=== PATIENT | female | born 1955 | race Caucasian/White ===

== ENCOUNTER → 2020-08-07 09:50 | Outpatient (BNVA) | payer MEDICARE, SELFPAY | PROVIDERS: PCP Internal Medicine; Referring Provider Internal Medicine; Visit Provider Nurse Practitioner | DX: I95.1 Orthostatic hypotension (principal); R94.31 Abnormal electrocardiogram [ECG] [EKG]; Z91.81 History of falling; K21.9 Gastro-esophageal reflux disease without esophagitis; K59.04 Chronic idiopathic constipation; N81.6 Rectocele; K64.9 Unspecified hemorrhoids; B37.9 Candidiasis, unspecified | CPT/HCPCS: 93005; 99213; 99214; Q3014 ==

== ENCOUNTER → 2020-08-08 09:07 | Outpatient (BNVA) | payer MEDICARE, SELFPAY | PROVIDERS: PCP Internal Medicine; Referring Provider Internal Medicine; Visit Provider Advanced Practice Midwife | DX: Z76.89 Persons encountering health services in other specified circumstances (principal) ==

== ENCOUNTER 2020-08-15 11:26 | Outpatient (REF) | payer MEDICARE, SELFPAY ==
--- NOTE | 2020-08-15 11:31 | US_ITS ---
EXAMINATION: PELVIC ULTRASOUND CLINICAL INFORMATION: Pain COMPARISON: Previous pelvic ultrasound July [address] of the abdomen and pelvis October 2019 TECHNIQUE: Transabdominal and transvaginal pelvic ultrasound was performed. Transvaginal exam was performed for better visualization of the ovaries. FINDINGS: The uterus has been removed. The right ovary measures 2.9 x 1.5 x 0.9 cm. There is a 1.7 x 0.7 x 0.8 cm right adnexal or paraovarian simple cyst. This is new from 2018 exam. The left ovary is normal-appearing and measures 2.5 x 1.3 x 1 cm. There is no fluid in the pelvis. US/US transvaginal IMPRESSION: New 1.7 x 0.7 x 0.8 cm right adnexal or paraovarian simple cyst. Normal-appearing left ovary. Post hysterectomy.
--- NOTE | 2020-08-15 11:31 | US_ITS ---
EXAMINATION: PELVIC ULTRASOUND CLINICAL INFORMATION: Pain COMPARISON: Previous pelvic ultrasound July [address] of the abdomen and pelvis October 2019 TECHNIQUE: Transabdominal and transvaginal pelvic ultrasound was performed. Transvaginal exam was performed for better visualization of the ovaries. FINDINGS: The uterus has been removed. The right ovary measures 2.9 x 1.5 x 0.9 cm. There is a 1.7 x 0.7 x 0.8 cm right adnexal or paraovarian simple cyst. This is new from 2018 exam. The left ovary is normal-appearing and measures 2.5 x 1.3 x 1 cm. There is no fluid in the pelvis. US/US pelvic complete IMPRESSION: New 1.7 x 0.7 x 0.8 cm right adnexal or paraovarian simple cyst. Normal-appearing left ovary. Post hysterectomy.
== END 2020-08-15 11:27 | disposition home or self-care (01) ==
LOC: HO.US 11:26
PROVIDERS: Visit Provider Advanced Practice Midwife
DX: R10.2 Pelvic and perineal pain (principal)
CPT/HCPCS: 76830; 76856

== ENCOUNTER → 2020-08-29 10:17 | Outpatient (BNVA) | payer MEDICARE, SELFPAY | PROVIDERS: PCP Internal Medicine; Visit Provider Advanced Practice Midwife | DX: N83.291 Other ovarian cyst, right side (principal); Z71.2 Person consulting for explanation of examination or test findings | CPT/HCPCS: Q3014 ==

== ENCOUNTER 2020-08-31 10:32 | Outpatient (REF) | payer MEDICARE, SELFPAY ==
[2020-08-31 12:40] LABS: MANUAL DIFF FLAG NO
[2020-08-31 12:47] LABS: Basophils Percent Auto 0.6 % (0-2); Eosinophils Absolute Auto 0.1 X10*3/uL (0.0-0.4); Eosinophils Percent Auto 2.3 % (0-4); Hematocrit 38.8 % (37-47); Imm Gran Abs Auto 0.01 X10*3/uL (0.00-0.03); Imm Gran Pct Auto 0.2 % (0.0-0.4); Lymphocytes Absolute Auto 1.9 X10*3/uL (1.2-4.9); Lymphocytes Percent Auto 38.6 % (20-40); Mean Corpuscular HGB Conc 33.5 g/dl (31.0-35.0); Mean Corpuscular Hemoglobin 30.8 pg (27.0-33.0); Mean Corpuscular Volume 91.9 fL (80-98); Monocytes Absolute Auto 0.4 X10*3/uL (0.1-1.2); Monocytes Percent Auto 8.6 % (2-11); Neutrophils Absolute Auto 2.4 X10*3/uL (2.0-8.3); Neutrophils Percent Auto 49.7 % (45-73); Platelet Count 146 X10*3/uL (160-400); Red Blood Count 4.22 X10*6/uL (4.20-5.50); Red Cell Distribution Width 13.2 % (11.0-16.0); White Blood Count 4.9 X10*3/uL (4.8-10.8)
[2020-08-31 13:03] LABS: Estimated Average Glucose 128 mg/dL; Hemoglobin A1C 148.4961 umol/L; Hemoglobin A1c % 6.1 %
[2020-08-31 13:35] LABS: Alanine Aminotransferase 29 U/L (0-31); Albumin Level 4.2 g/dL (3.5-5.0); Alkaline Phosphatase 154 U/L (39-117); Anion Gap 10 (12-20); Aspartate Amino Transferase 38 U/L (5-31); Bilirubin Total 0.4 mg/dL (0.0-1.0); Blood Urea Nitrogen 13 mg/dL (9-16); Calcium 9.1 mg/dL (8.4-10.2); Carbon Dioxide 33 mmol/L (22-29); Chloride 103 mmol/L (96-108); Cholesterol 124 mg/dL; Estimated Glomerular Filt Rate > 60; Glucose Fasting 79 mg/dL (60-99); HDL Cholesterol 50 mg/dL; LDL Cholesterol Calculated 48 mg/dl; Sodium 142 mmol/L (135-145); Total Protein 7.3 g/dL (6.5-8.0); Triglycerides 134 mg/dL
[2020-08-31 13:41] LABS: Vitamin D 25-OH Total 52.3 ng/mL (>30)
[2020-08-31 13:43] LABS: TSH reflex Free T4 1.51 mIU/mL (0.32-4.0)
[2020-08-31 13:49] LABS: Glucose Urine UA 100 MG/DL (NEG); Leukocyte Esterase Urine NEG (NEG); Nitrite Urine NEG (NEG); PH 7.5 (5.0-8.0); Urine Blood NEG (NEG); Urine Ketones NEG (NEG); Urine Protein NEG (NEG-TRACE)
[2020-08-31 13:56] LABS: Appearance Urine HAZY; Color Urine YELLOW
[2020-08-31 14:05] LABS: Vitamin B12 412 pg/mL (200-900)
[2020-09-01 10:17] LABS: LDL Cholesterol Direct 45 mg/dL (<100)
== END 2020-08-31 10:33 | disposition home or self-care (01) ==
LOC: HO.LAB 10:32
PROVIDERS: Absent Provider Internal Medicine Endocrinology, Diabetes & Metabolism; PCP Internal Medicine; Visit Provider Internal Medicine
DX: E11.319 Type 2 diabetes mellitus with unspecified diabetic retinopathy without macular edema (principal); E11.42 Type 2 diabetes mellitus with diabetic polyneuropathy; E78.5 Hyperlipidemia, unspecified; I10 Essential (primary) hypertension; R94.5 Abnormal results of liver function studies; F03.90 Unspecified dementia, unspecified severity, without behavioral disturbance, psychotic disturbance, mood disturbance, and anxiety; E11.40 Type 2 diabetes mellitus with diabetic neuropathy, unspecified; K21.9 Gastro-esophageal reflux disease without esophagitis; N39.3 Stress incontinence (female) (male); I95.1 Orthostatic hypotension; E66.9 Obesity, unspecified
CPT/HCPCS: 36415; 80053; 80061; 81003; 82306; 82607; 82746; 83036; 83721; 84443; 85025

== ENCOUNTER → 2020-09-06 13:41 | Outpatient (BNVA) | payer MEDICARE, SELFPAY | PROVIDERS: PCP Internal Medicine; Referring Provider Internal Medicine; Visit Provider Internal Medicine Endocrinology, Diabetes & Metabolism | DX: E11.65 Type 2 diabetes mellitus with hyperglycemia (principal); E11.319 Type 2 diabetes mellitus with unspecified diabetic retinopathy without macular edema; E11.42 Type 2 diabetes mellitus with diabetic polyneuropathy; Z79.4 Long term (current) use of insulin; E78.5 Hyperlipidemia, unspecified; E55.9 Vitamin D deficiency, unspecified; E66.9 Obesity, unspecified; I10 Essential (primary) hypertension | CPT/HCPCS: Q3014 ==

== ENCOUNTER 2020-09-09 09:42 | Outpatient (REF) | payer MEDICARE, SELFPAY ==
--- NOTE | 2020-09-09 09:48 | MM_ITS ---
EXAMINATION: MM SCREENING DIGITAL BREAST TOMOSYNTHESIS, BILATERAL CLINICAL INFORMATION: Screening. Asymptomatic. The lifetime risk of breast cancer based on the Tyrer-Cuzick Model is 8%. COMPARISON: Mammography: 09/06/2019, 08/04/2018, 08/02/2017 TECHNIQUE: Digital breast tomosynthesis is performed in both the craniocaudal and mediolateral oblique views along with computer-aided detection (CAD). Synthesized 2D images are generated from the tomosynthesis. Additional bilateral MLO views are provided. FINDINGS: There are scattered areas of fibroglandular density (ACR BI-RADS breast composition Category b). There are no significant masses, abnormal calcifications, or other abnormalities. The axilla and skin contours are unremarkable. MM/MM tomosynthesis screening BI IMPRESSION: No mammographic evidence of malignancy. ASSESSMENT: BI-RADS 1: Negative RECOMMENDATION: Routine annual mammography screening. This patient's information was entered into a reminder system with a target due date for their next mammogram.
== END 2020-09-09 09:43 | disposition home or self-care (01) ==
LOC: HO.MAMMO 09:42
PROVIDERS: PCP Internal Medicine; Visit Provider Internal Medicine
DX: Z12.31 Encounter for screening mammogram for malignant neoplasm of breast (principal)
CPT/HCPCS: 77063; 77067

== ENCOUNTER 2020-09-27 12:47 | Outpatient (REF) | payer MEDICARE, SELFPAY ==
--- NOTE | 2020-09-27 12:52 | XR_ITS ---
EXAMINATION: XR HAND, RIGHT CLINICAL INFORMATION: Pain COMPARISON: Previous exam September 2014 TECHNIQUE: PA, lateral, and oblique views of the right hand. FINDINGS: Bone alignment is normal. No acute fracture or dislocation is seen. There is an old healed fracture of the distal phalanx of the thumb. There is arthritis at the first FPC joint and IP joints, greatest in the DIP joint of the second finger and IP joint of the thumb. Soft tissues are unremarkable. XR/XR hand RT 2V IMPRESSION: Degenerative arthritis.
== END 2020-09-27 12:48 | disposition home or self-care (01) ==
LOC: HO.XRAY 12:47
PROVIDERS: Visit Provider Internal Medicine
DX: M79.644 Pain in right finger(s) (principal)
CPT/HCPCS: 73120

== ENCOUNTER 2020-10-18 14:27 | Outpatient (REF) | payer MEDICARE, SELFPAY | END 2020-10-18 14:28 | disposition home or self-care (01) | LOC: HO.LAB 14:27 | PROVIDERS: Visit Provider Internal Medicine | DX: Z20.828 Contact with and (suspected) exposure to other viral communicable diseases (principal) | CPT/HCPCS: 36415; C9803; U0003 ==

== ENCOUNTER → 2020-12-05 11:01 | Outpatient (BNVA) | payer MEDICARE, SELFPAY | PROVIDERS: PCP Internal Medicine; Visit Provider Nurse Practitioner | CPT/HCPCS: Q3014 ==

== ENCOUNTER 2020-12-11 12:22 | Outpatient (REF) | payer MEDICARE, SELFPAY ==
[2020-12-11 14:51] LABS: MANUAL DIFF FLAG NO
[2020-12-11 15:03] LABS: Basophils Percent Auto 0.6 % (0-2); Eosinophils Absolute Auto 0.1 X10*3/uL (0.0-0.4); Eosinophils Percent Auto 2.8 % (0-4); Hematocrit 38.7 % (37-47); Hemoglobin 12.9 g/dl (12.0-16.0); Imm Gran Abs Auto 0.01 X10*3/uL (0.00-0.03); Imm Gran Pct Auto 0.2 % (0.0-0.4); Lymphocytes Absolute Auto 1.7 X10*3/uL (1.2-4.9); Lymphocytes Percent Auto 34.2 % (20-40); Mean Corpuscular HGB Conc 33.3 g/dl (31.0-35.0); Mean Corpuscular Hemoglobin 30.5 pg (27.0-33.0); Mean Corpuscular Volume 91.5 fL (80-98); Mean Platelet Volume 10.2 fL (9.4-12.3); Monocytes Absolute Auto 0.4 X10*3/uL (0.1-1.2); Monocytes Percent Auto 7.3 % (2-11); Neutrophils Absolute Auto 2.8 X10*3/uL (2.0-8.3); Neutrophils Percent Auto 54.9 % (45-73); Platelet Count 156 X10*3/uL (160-400); Red Blood Count 4.23 X10*6/uL (4.20-5.50); Red Cell Distribution Width 13.3 % (11.0-16.0); White Blood Count 5.1 X10*3/uL (4.8-10.8)
[2020-12-11 15:16] LABS: Glucose Urine UA NEG (NEG); Leukocyte Esterase Urine 2+ (NEG); Nitrite Urine NEG (NEG); UACC Culture Trigger YES; Urine Blood NEG (NEG); Urine Ketones NEG (NEG); Urine Protein NEG (NEG-TRACE)
[2020-12-11 15:19] LABS: Appearance Urine HAZY; Color Urine YELLOW
[2020-12-11 15:31] LABS: Alanine Aminotransferase 35 U/L (0-31); Albumin Level 4.1 g/dL (3.5-5.0); Alkaline Phosphatase 161 U/L (39-117); Anion Gap 11 (12-20); Aspartate Amino Transferase 55 U/L (5-31); Bilirubin Total 0.7 mg/dL (0.0-1.0); Blood Urea Nitrogen 15 mg/dL (9-16); Carbon Dioxide 32 mmol/L (22-29); Chloride 103 mmol/L (96-108); Cholesterol 124 mg/dL; Estimated Glomerular Filt Rate > 60; Glucose Fasting 116 mg/dL (60-99); HDL Cholesterol 51 mg/dL; LDL Cholesterol Calculated 49 mg/dl; Sodium 142 mmol/L (135-145); Total Protein 6.9 g/dL (6.5-8.0); Triglycerides 122 mg/dL
[2020-12-11 15:53] LABS: TSH reflex Free T4 1.32 uIU/mL (0.32-4.0); Vitamin D 25-OH Total 48.6 ng/mL (>30)
[2020-12-11 15:54] LABS: Bacteria Urine 1+ /LPF; RBC Urine 0-2 /HPF (0); UACC CULT YES; WBC Urine 30-49 /HPF (0-4)
[2020-12-11 15:55] LABS: Amorphous Sediment Urine 2+ /LPF
[2020-12-11 16:00] LABS: Folate 13.2 ng/mL (> or = 4.0); Vitamin B12 437 pg/mL (200-900)
== END 2020-12-11 12:23 | disposition home or self-care (01) ==
LOC: HO.LAB 12:22
PROVIDERS: Absent Provider Internal Medicine; PCP Internal Medicine; Visit Provider Internal Medicine Endocrinology, Diabetes & Metabolism
DX: E11.65 Type 2 diabetes mellitus with hyperglycemia (principal); E11.3399 Type 2 diabetes mellitus with moderate nonproliferative diabetic retinopathy without macular edema, unspecified eye; E11.42 Type 2 diabetes mellitus with diabetic polyneuropathy; E11.21 Type 2 diabetes mellitus with diabetic nephropathy; Z96.41 Presence of insulin pump (external) (internal); E78.5 Hyperlipidemia, unspecified; E55.9 Vitamin D deficiency, unspecified; E66.9 Obesity, unspecified; I10 Essential (primary) hypertension
CPT/HCPCS: 36415; 80053; 80061; 81001; 82306; 82607; 82746; 82947; 84443; 85025; 87086; 87088; 87186; 99212

== ENCOUNTER 2021-01-22 09:36 | Outpatient (REF) | payer MEDICARE, SELFPAY ==
--- NOTE | ~2021-01-22 | US_ITS ---
EXAMINATION: US THYROID CLINICAL INFORMATION: Localized swelling, mass and lump, neck. COMPARISON: None TECHNIQUE: Linear transducer grayscale and color Doppler examination with attention to the region of the thyroid. FINDINGS: SIZE: Measurements of the thyroid lobes and nodules are given in sagittal, anteroposterior and transverse dimensions respectively. Right Thyroid Lobe: 4.31 x 0.90 x 0.90 cm, volume 1.75 mL. Parenchyma: The gland echotexture is homogeneous. Thyroid vascularity is normal. Left Thyroid Lobe: 4.25 x 0.80 x 0.90 cm, volume 1.56 mL. Parenchyma: The gland echotexture is homogeneous. Thyroid vascularity is normal. Isthmus: 0.25 cm in maximum AP dimension. Estimated total number of nodules greater than or equal to 1 cm: 0. No focal thyroid nodule is seen. NODES: No lymphadenopathy is seen in the tissue surrounding the thyroid gland. US/US thyroid IMPRESSION: Small thyroid gland otherwise unremarkable exam.
== END 2021-01-22 09:37 | disposition home or self-care (01) ==
LOC: HO.US 09:36
PROVIDERS: Visit Provider Internal Medicine
DX: R22.1 Localized swelling, mass and lump, neck (principal)
CPT/HCPCS: 76536

== ENCOUNTER → 2021-01-25 15:30 | Outpatient (BNVA) | payer MEDICARE, SELFPAY | PROVIDERS: PCP Internal Medicine; Visit Provider Urology | DX: N32.81 Overactive bladder (principal) | CPT/HCPCS: 51798; 81002; 99212 ==

== ENCOUNTER 2021-02-07 14:22 | Outpatient (REF) | payer MEDICARE, SELFPAY | END 2021-02-07 14:23 | disposition home or self-care (01) | LOC: HO.LAB 14:22 | PROVIDERS: PCP Internal Medicine; Visit Provider Internal Medicine | DX: Z02.9 Encounter for administrative examinations, unspecified (principal) | CPT/HCPCS: 86900; 86901 ==

== ENCOUNTER 2021-02-19 08:52 | Day surgery (SDC) | payer MEDICARE, SELFPAY ==
[2021-02-07 09:39] VITALS: BMI 32.5
--- NOTE | 2021-02-15 14:31 | HO.ANESPROP2 ---
Documented by User: Jennifer Ervin 02/15/21 14:39 HPI - Anesthesia Eval Consult details Narrative: 66yo F for Cystoscopy Botox Injection Last cysto botox 01/2020 with MAC Insulin pump in situ PMFSH Active Problems Active Problems: All Active Problems (Updated 02/07/21 @ 09:37 by Katie Arrieta) Chronic idiopathic constipation (Acute) GERD (gastroesophageal reflux disease) (Acute) Rectocele (Acute) Hemorrhoids (Acute) Charmaine albicans infection (Acute) QT prolongation (Acute) Right sided abdominal pain (Acute) Simple ovarian cyst (Acute) Diabetic polyneuropathy associated with type 2 diabetes mellitus (Acute) Diabetes type 2, uncontrolled (Acute) Overactive bladder (Acute) Localized swelling, mass and lump, neck (Acute) Urinary tract infection with pyuria (Acute) Elevated LFTs (Acute) Elevated liver enzymes (Acute) Depression (Acute) Anxiety (Acute) Urinary incontinence in female (Acute) Dementia (Acute) Osteoarthritis (Acute) Lumbar spondylosis (Acute) Benign essential hypertension (Acute) Pure hypercholesterolemia (Acute) Type 2 diabetes mellitus with diabetic polyneuropathy (Acute) Pain of right thumb (Acute) Allergic rhinitis (Acute) Hypertension (Acute) Obesity (BMI 30-39.9) (Acute) Vitamin D deficiency (Acute) Dyslipidemia (Acute) Diabetic 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 type 2 diabetes mellitus (Acute) 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) Dizziness and giddiness (Acute) Orthostatic hypotension (Acute) Past Medical History Medical History (Updated 02/07/21 @ 09:37 by Katie Arrieta) Allergic rhinitis Anxiety Benign essential hypertension Blind left eye COVID-19 vaccine administered CVA (cerebral vascular accident) Dementia Depression Diabetic 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 type 2 diabetes mellitus Dizziness and giddiness Dyslipidemia Elevated LFTs Elevated liver enzymes Hypertension Localized swelling, mass and lump, neck 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 Lumbar spondylosis Obesity (BMI 30-39.9) Orthostatic hypotension Osteoarthritis Pain of right thumb Pure hypercholesterolemia Thyroid disease Type 2 diabetes mellitus with diabetic polyneuropathy Urinary incontinence in female Urinary tract infection with pyuria Vitamin D deficiency Family History Family History Father Diabetes Mother Heart problem Brother Diabetes Surgical History Surgical History (Updated 02/07/21 @ 09:01 by Katie Arrieta) History of carpal tunnel release History of esophagogastroduodenoscopy (EGD) History of pubovaginal sling Hx of cholecystectomy Hx of colonoscopy Hx of cystoscopy Hx of eye surgery Hx of hysterectomy Social History Social History Are you a primary acute care physical therapist to a significant other at home: No Do you presently have visiting nurse or other home services: Yes Alcohol intake: never Smoking Status: Never smoker Use of substances other than those prescribed or required for medical reasons: No Have you been hit, kicked, punched, or otherwise hurt by someone within the past year? If so, by whom?: No Advance Directives Information Provided: No Recently lost weight without trying: No Eating poorly because of decreased appetite: No Nutrition Risks: No Nutritional Risk Poor oral hygiene: No (upper & lower full denture) Gender identity: female Meds Allergies Allergy/AdvReac Type Severity Reaction Status Date / Time Penicillins Allergy Intermediate RASH/HIVES Verified 12/26/20 11:37 Home Medications Medication Instructions Recorded Confirmed Last Taken Type fludrocortisone 0.1 mg tablet 0.2 mg PO DAILY 08/07/20 02/07/21 Unknown History amitriptyline 10 mg tablet 20 mg PO BEDTIME 09/06/20 02/07/21 Unknown History blood sugar diagnostic #10 ea 09/06/20 12/11/20 Unknown History clonazepam 1 mg tablet 1 mg PO BEDTIME 09/06/20 02/07/21 Unknown History levothyroxine 125 mcg tablet 125 mcg PO QAM 09/06/20 02/07/21 Unknown History mirabegron 50 mg tablet,extended 100 mg PO DAILY 09/06/20 02/07/21 Unknown History release 24 hr dorzolamide 22.3 mg-timolol 6.8 1 drp OPHTHALMIC (EYE) BID 09/27/20 02/07/21 Unknown History mg/mL eye drops hydrocortisone 2.5 % topical cream [place] 09/27/20 12/26/20 Unknown History with perineal applicator lifitegrast 5 % eye drops in a 1 drp OPHTHALMIC (EYE) BID 09/27/20 12/26/20 Unknown History dropperette nystatin 100,000 unit/gram topical TOPICAL TID 09/27/20 12/26/20 Unknown History cream quetiapine 25 mg tablet 75 mg PO BEDTIME 09/27/20 02/07/21 Unknown History erenumab-aooe 70 mg/mL mg SUBCUT 12/05/20 12/26/20 Unknown History subcutaneous auto-injector hydroxyzine HCl 25 mg PO TID 02/07/21 02/07/21 Unknown History magnesium oxide 400 mg PO BEDTIME 02/07/21 02/07/21 Unknown History rosuvastatin 40 mg PO BEDTIME 02/07/21 02/07/21 Unknown History Exam Exam Date and Time: February 15, 2021 1431 Height,Weight and Vital Signs: Height 5 ft 1 in Weight 78.018 kg Narrative Narrative: EKG 07/2020 sinus rhythm at 83/Min normal NH and mildly prolonged QTc at 500ms. Echocardiogram 2017 shows LVEF 55-60%; mild diastolic dysfunction: otherwise unremarkable. Myocardial perfusion imaging study 2018-likely normal perfusion. 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 Lumbar spondylosis Obesity (BMI 30-39.9) Orthostatic hypotension Osteoarthritis Pain of right thumb Pure hypercholesterolemia Thyroid disease Type 2 diabetes mellitus with diabetic polyneuropathy Urinary incontinence in female Urinary tract infection with pyuria Vitamin D deficiency Family History Family History Father Diabetes Mother Heart problem Brother Diabetes Surgical History Surgical History (Updated 02/07/21 @ 09:01 by Katie Arrieta) History of carpal tunnel release History of esophagogastroduodenoscopy (EGD) History of pubovaginal sling Hx of cholecystectomy Hx of colonoscopy Hx of cystoscopy Hx of eye surgery Hx of hysterectomy Social History Social History Are you a primary acute care physical therapist to a significant other at home: No Do you presently have visiting nurse or other home services: Yes Alcohol intake: never Smoking Status: Never smoker Use of substances other than those prescribed or required for medical reasons: No Have you been hit, kicked, punched, or otherwise hurt by someone within the past year? If so, by whom?: No Advance Directives Information Provided: No Recently lost weight without trying: No Eating poorly because of decreased appetite: No Nutrition Risks: No Nutritional Risk Poor oral hygiene: No (upper & lower full denture) Gender identity: female Meds Allergies Allergy/AdvReac Type Severity Reaction Status Date / Time Penicillins Allergy Intermediate RASH/HIVES Verified 12/26/20 11:37 Home Medications Medication Instructions Recorded Confirmed Last Taken Type fludrocortisone 0.1 mg tablet 0.2 mg PO DAILY 08/07/20 02/07/21 Unknown History amitriptyline 10 mg tablet 20 mg PO BEDTIME 09/06/20 02/07/21 Unknown History blood sugar diagnostic #10 ea 09/06/20 12/11/20 Unknown History clonazepam 1 mg tablet 1 mg PO BEDTIME 09/06/20 02/07/21 Unknown History levothyroxine 125 mcg tablet 125 mcg PO QAM 09/06/20 02/07/21 Unknown History mirabegron 50 mg tablet,extended 100 mg PO DAILY 09/06/20 02/07/21 Unknown History release 24 hr dorzolamide 22.3 mg-timolol 6.8 1 drp OPHTHALMIC (EYE) BID 09/27/20 02/07/21 Unknown History mg/mL eye drops hydrocortisone 2.5 % topical cream NH 09/27/20 12/26/20 Unknown History with perineal applicator lifitegrast 5 % eye drops in a 1 drp OPHTHALMIC (EYE) BID 09/27/20 12/26/20 Unknown History dropperette nystatin 100,000 unit/gram topical TOPICAL TID 09/27/20 12/26/20 Unknown History cream quetiapine 25 mg tablet 75 mg PO BEDTIME 09/27/20 02/07/21 Unknown History erenumab-aooe 70 mg/mL mg SUBCUT 12/05/20 12/26/20 Unknown History subcutaneous auto-injector hydroxyzine HCl 25 mg PO TID 02/07/21 02/07/21 Unknown History magnesium oxide 400 mg PO BEDTIME 02/07/21 02/07/21 Unknown History rosuvastatin 40 mg PO BEDTIME 02/07/21 02/07/21 Unknown History Exam Airway Mallampati Class: II TM Dist: >3cm Neck ROM: Full Denture: Upper Partial: Upper Heart: RRr Lungs: CtA BL Assessment and Plan Assessment Anesthesia Assessment: Anesthesia Plan Discussed and Chart Reviewed Final Anesthetic Review NPO: Yes ASA Class: III Final Preanesthetic Review: No Changes in Pt Med Stat and Consent Obtained/Reviewed Patient Risk: Intermediate Procedure Risk: Intermediate Anesthetic Plan Anesthetic Plan: MAC: Disposition: Standard PACU
[2021-02-19 09:35] VITALS: BP 174/94; PULSE 94; RESP 16; TEMP 36.3; O2SAT 96
[2021-02-19 09:41] LABS: Glucose, Whole Blood 105 mg/dL (60-115)
[2021-02-19] MEDS: Lactated Ringers 1,000 ML 100 ML IVCONT (10:01)
[2021-02-19] MEDS: levoFLOXacin 500 MG TABLET PO (10:23)
--- NOTE | 2021-02-19 11:33 | MHC.SHP ---
Pre-Procedural Eval Section A The patient is an INPATIENT: No Changes since office visit: No Cold of Flu in the past 2 weeks, No New Medical Problems, No Changes in Medication and No Patient answered all questions The History & Physical has been completed within 30 days and I have reviewed it.: Yes Section B Chief Complaint: overactive bladder Allergies: Allergies Allergy/AdvReac Type Severity Reaction Status Date / Time Penicillins Allergy Intermediate RASH/HIVES Verified 12/26/20 11:37 Plan Diagnosis/Plan: Unchanged (Cysto bladder Botox) I have reviewed the history and physical and performed a pertinent physical examination on my patient. No changes have occurred unless specified.
[2021-02-19 12:01] VITALS: BP 158/92; PULSE 94; RESP 14; TEMP 36.3; O2SAT 96
--- NOTE | 2021-02-19 12:02 | P.OP_ITS ---
Operative Note Operative Note Date of Service: 02/19/21 Narrative: PreOperative Diagnosis: Overactive bladder Post Operative Diagnosis: Overactive bladder Procedure: Cystoscopy with Botox Surgeon: Dr Trip Goetz Anesthesia: Sedation Indications for procedure: 66-year-old female. Prior Botox action. Here for repeat administration. This was done prior to COVID so has significant symptomatology Procedure: After informed consent was verified the patient was brought to the operating room and placed in a supine position. anesthesia was administered per protocol. The patient was placed in modified dorsal lithotomy position and prepped and draped in a sterile fashion. Safety pause time-out was performed. On exam been given. A 22 Bulgarian cystoscope inserted in her bladder. No abnormalities noted. Twenty injections were performed on the back wall of the bladder. Four rows of 5 injections. Each injection was 1.5 cc of a 10 cc normal saline solution containing 100 units of Botox. Once the procedure was completed the bladder was emptied. Lidocaine jelly was placed to assist with postprocedure pain control. She was discharged with antibiotics for 5 days low-dose. Pathology: Drains:
[2021-02-19 12:16] VITALS: BP 158/88; PULSE 87; RESP 16; O2SAT 96
[2021-02-19 12:37] VITALS: BP 158/89; PULSE 87; RESP 16; O2SAT 96
[2021-02-19] MEDS: Phenazopyridine HCL 100 MG TABLET PO (12:47)
== END 2021-02-19 13:13 | disposition home or self-care (01) ==
PROVIDERS: PCP Internal Medicine; Visit Provider Urology
PROC: 3E0K8GC Introduction of Other Therapeutic Substance into Genitourinary Tract, Via Natural or Artificial Opening Endoscopic (ICD-10-PCS; CPT 52287; principal; 2021-02-19 10:30)
DX: N32.81 Overactive bladder (principal); I10 Essential (primary) hypertension; E11.42 Type 2 diabetes mellitus with diabetic polyneuropathy; E11.319 Type 2 diabetes mellitus with unspecified diabetic retinopathy without macular edema; F03.90 Unspecified dementia, unspecified severity, without behavioral disturbance, psychotic disturbance, mood disturbance, and anxiety; Z79.4 Long term (current) use of insulin; Z96.41 Presence of insulin pump (external) (internal); Z86.73 Personal history of transient ischemic attack (TIA), and cerebral infarction without residual deficits; E03.9 Hypothyroidism, unspecified; Z79.82 Long term (current) use of aspirin; Z79.899 Other long term (current) drug therapy; Z90.49 Acquired absence of other specified parts of digestive tract
CPT/HCPCS: 52287; 82947; J0585

== ENCOUNTER 2021-02-28 08:03 | Outpatient (REF) | payer MEDICARE, SELFPAY ==
--- NOTE | ~2021-02-28 | US_ITS ---
EXAMINATION: US COMPLETE ABDOMEN WITH LIVER ELASTOGRAPHY CLINICAL INFORMATION: Abnormal LFTs. COMPARISON: None. TECHNIQUE: Real-time imaging of the abdominal viscera. Noninvasive ultrasound liver fibrosis assessment is performed using Valerio ElastPQ point quantification shear wave elastography (pSWE) with a C5-2 MHz transducer. Multiple elastography samples are obtained. FINDINGS: PANCREAS: Normal. The visualized pancreatic head and body are normal in appearance. The remainder of the pancreas is obscured from visualization by the overlying bowel gas. ABDOMINAL AORTA: The proximal, middle, and distal aortic segments are normal in caliber. INFERIOR VENA CAVA: Visualized portions are normal. LIVER: The liver demonstrates normal size, contour and diffuse increased echogenicity. No focal lesion or intrahepatic biliary duct dilatation. The right lobe measures 15.6 cm in length. The left lobe measures 14.6 cm in length. Portal flow is hepatopedal. Shear wave liver elastography median stiffness is 3.46 m/s (reference: normal median stiffness is 1.3 m/s or less). IQR/median stiffness to assess sampling precision is 1.0 (reference: good quality data set is IQR/median stiffness of 0.15 or less). GALLBLADDER: Normal. The gallbladder is physiologically distended without evidence of stones, sludge, polyps, wall thickening or pericholecystic fluid. COMMON BILE DUCT: Normal in caliber measuring 0.7 cm in diameter. RIGHT KIDNEY: Normal. No hydronephrosis. No renal calculi or focal parenchymal lesions. The kidney measures 12.0 cm in maximum dimension. LEFT KIDNEY: Normal. No hydronephrosis. No renal calculi or focal parenchymal lesions. The kidney measures 12.2 cm in maximum dimension. SPLEEN: Normal. The spleen measures 12.8 cm in maximum dimension. FREE FLUID: None. US/US abdomen comp w elastography IMPRESSION: 1. Diffuse hepatic steatosis. No focal lesion seen. 2. The rest of the abdominal ultrasound is unremarkable. 3. Liver elastography: Median stiffness is 3.46 m/s. However, the sampling is suboptimal, hence, the elastography findings are nondiagnostic. REFERENCE: Society of Radiologists in Ultrasound Liver Stiffness Thresholds (2020): LIVER STIFFNESS THRESHOLDS: *Liver Stiffness equal or less than 1.3 m/s: High probability of being normal. *Liver Stiffness less than 1.7 m/s: In the absence of other known clinical signs, rules out compensated advanced chronic liver disease. *Liver Stiffness 1.7-2.1 m/s: Suggestive of compensated advanced chronic liver disease but need further test for confirmation. *Liver Stiffness over 2.1 m/s: Rules in compensated advanced chronic liver disease. *Liver Stiffness over 2.4 m/s: Suggestive of clinically significant portal hypertension. QUALITY OF DATA SET: *IQR/Median value equal or less than 0.15 implies a quality data set. *IQR/Median value over 0.15 implies a poor quality data set. SIGNIFICANT CHANGE FROM PRIOR EXAM: Significant change if liver stiffness measurement is 10% or greater from prior exam. OTHER CONSIDERATIONS: The stage of liver fibrosis may be overestimated in the setting of acute hepatitis, liver inflammation, elevated liver function tests, hepatic vascular congestion, obstructive cholestasis, non-fasting state, and infiltrative diseases such as amyloidosis and lymphoma. In some patients with NAFLD, the liver stiffness thresholds for compensated advanced chronic liver disease may be lower. In causes other than viral hepatitis and NAFLD, liver stiffness thresholds are not well established.
== END 2021-02-28 08:04 | disposition home or self-care (01) ==
LOC: HO.US 08:03
PROVIDERS: Visit Provider Internal Medicine
DX: R79.89 Other specified abnormal findings of blood chemistry (principal)
CPT/HCPCS: 76705; 76981

== ENCOUNTER → 2021-03-08 09:52 | Outpatient (BNVA) | payer MEDICARE, SELFPAY | DX: N32.81 Overactive bladder (principal); R32 Unspecified urinary incontinence | CPT/HCPCS: 51798; 99212 ==

== ENCOUNTER → 2021-03-14 12:39 | Outpatient (BNVA) | payer MEDICARE, SELFPAY | PROVIDERS: Visit Provider Internal Medicine Endocrinology, Diabetes & Metabolism | DX: E11.65 Type 2 diabetes mellitus with hyperglycemia (principal); E11.3393 Type 2 diabetes mellitus with moderate nonproliferative diabetic retinopathy without macular edema, bilateral; E11.42 Type 2 diabetes mellitus with diabetic polyneuropathy; E78.5 Hyperlipidemia, unspecified; E55.9 Vitamin D deficiency, unspecified; E66.9 Obesity, unspecified; I10 Essential (primary) hypertension; Z96.41 Presence of insulin pump (external) (internal); Z79.4 Long term (current) use of insulin | CPT/HCPCS: 82947; 99212 ==

== ENCOUNTER 2021-04-12 09:04 | Outpatient (REF) | payer MEDICARE, SELFPAY ==
[2021-04-12 10:10] LABS: MANUAL DIFF FLAG NO
[2021-04-12 10:19] LABS: Basophils Percent Auto 0.6 % (0-2); Eosinophils Absolute Auto 0.1 X10*3/uL (0.0-0.4); Eosinophils Percent Auto 1.8 % (0-4); Hematocrit 38.2 % (37-47); Hemoglobin 12.7 g/dl (12.0-16.0); Imm Gran Abs Auto 0.01 X10*3/uL (0.00-0.03); Imm Gran Pct Auto 0.2 % (0.0-0.4); Lymphocytes Absolute Auto 1.9 X10*3/uL (1.2-4.9); Mean Corpuscular HGB Conc 33.2 g/dl (31.0-35.0); Mean Corpuscular Hemoglobin 30.2 pg (27.0-33.0); Mean Platelet Volume 9.8 fL (9.4-12.3); Monocytes Absolute Auto 0.4 X10*3/uL (0.1-1.2); Monocytes Percent Auto 7.8 % (2-11); Neutrophils Absolute Auto 2.8 X10*3/uL (2.0-8.3); Neutrophils Percent Auto 53.6 % (45-73); Platelet Count 140 X10*3/uL (160-400); Red Cell Distribution Width 13.7 % (11.0-16.0); White Blood Count 5.1 X10*3/uL (4.8-10.8)
[2021-04-12 10:32] LABS: Alanine Aminotransferase 38 U/L (0-31); Albumin Level 4.1 g/dL (3.5-5.0); Alkaline Phosphatase 162 U/L (39-117); Anion Gap 10 (12-20); Aspartate Amino Transferase 52 U/L (5-31); Bilirubin Total 0.4 mg/dL (0.0-1.0); Blood Urea Nitrogen 12 mg/dL (9-16); Calcium 9.5 mg/dL (8.4-10.2); Carbon Dioxide 32 mmol/L (22-29); Chloride 106 mmol/L (96-108); Cholesterol 123 mg/dL; Estimated Glomerular Filt Rate > 60; Glucose Fasting 159 mg/dL (60-99); HDL Cholesterol 48 mg/dL; LDL Cholesterol Calculated 48 mg/dl; Potassium 3.9 mmol/L (3.3-5.1); Sodium 144 mmol/L (135-145); Triglycerides 139 mg/dL
[2021-04-12 10:55] LABS: TSH reflex Free T4 2.27 uIU/mL (0.32-4.0); Vitamin D 25-OH Total 36.6 ng/mL (>30)
[2021-04-12 11:02] LABS: Estimated Average Glucose 126 mg/dL
[2021-04-12 11:17] LABS: Glucose Urine UA 250 MG/DL (NEG); Leukocyte Esterase Urine NEG (NEG); Nitrite Urine NEG (NEG); Urine Blood NEG (NEG); Urine Ketones NEG (NEG); Urine Protein NEG (NEG-TRACE)
[2021-04-12 11:24] LABS: Folate 14.2 ng/mL (> or = 4.0); Vitamin B12 310 pg/mL (200-900)
[2021-04-12 11:31] LABS: Appearance Urine CLEAR; Color Urine YELLOW; Creatinine Urine 113.37 mg/dL; Microalbum/Creatinine Ratio Ur 27.3 ug/mg cr
== END 2021-04-12 09:05 | disposition home or self-care (01) ==
LOC: HO.LAB 09:04
PROVIDERS: PCP Internal Medicine; Visit Provider Internal Medicine
DX: N32.81 Overactive bladder (principal); R32 Unspecified urinary incontinence; E11.42 Type 2 diabetes mellitus with diabetic polyneuropathy; Z79.4 Long term (current) use of insulin
CPT/HCPCS: 36415; 51702; 51798; 80053; 80061; 81003; 82043; 82306; 82607; 82746; 83036; 84443; 85025; 99212

== ENCOUNTER → 2021-04-18 15:07 | Outpatient (BNVA) | payer MEDICARE, SELFPAY | PROVIDERS: PCP Internal Medicine | DX: R32 Unspecified urinary incontinence (principal); T83.038A Leakage of other urinary catheter, initial encounter; I10 Essential (primary) hypertension; F03.90 Unspecified dementia, unspecified severity, without behavioral disturbance, psychotic disturbance, mood disturbance, and anxiety; E11.319 Type 2 diabetes mellitus with unspecified diabetic retinopathy without macular edema; E11.65 Type 2 diabetes mellitus with hyperglycemia; E11.42 Type 2 diabetes mellitus with diabetic polyneuropathy; E78.00 Pure hypercholesterolemia, unspecified; Z88.0 Allergy status to penicillin | CPT/HCPCS: 99212 ==

== ENCOUNTER → 2021-05-16 11:08 | Outpatient (BNVA) | payer MEDICARE, SELFPAY | PROVIDERS: PCP Internal Medicine | DX: N32.81 Overactive bladder (principal) | CPT/HCPCS: 99212 ==

== ENCOUNTER 2021-05-29 10:21 | Outpatient (REF) | payer MEDICARE, SELFPAY ==
--- NOTE | 2021-05-29 14:55 | MHC.AU.ANR ---
Adult Audiological Evaluation Date of Visit: 05/29/21 Delivery Consultant Used: Daughter provided [place] interpretation Reason for Appointment: Audiological re-evaluation to monitor the status of Ms. Marquez's hearing loss. She was previously diagnosed with bilateral sensorineural hearing loss and binaural hearing aids were recommended. Her daughter notes that they went to an office in [place] for hearing aids since they take her insurance, but then the COVID-19 pandemic hit and they never heard from the office again. Changes to Ms. Marquez's medical history includes worsening dementia. Does patient feel they have a hearing loss?: Yes If Yes, Which Ear?: Both Ears Has hearing been tested previously?: Yes Previous Hearing Test Results: [facility] [place], 10/05/2019- Mild sloping to severe sensorineural hearing loss bilaterally. Ear History: Bothersome Tinnitus/Ringing/Noises in Ears: Left Ear Medical History: Medical History: Diabetes, Headache Medical History (Other): Dementia Allergies: Penicillin Medication List: See medical record Otoscopy: Right Ear: Unremarkable Left Ear: Unremarkable Tympanometry: Tympanometry performed due to: To assess integrity of the middle ear system Right Ear: Normal Middle Ear System (Type A) Left Ear: Normal Middle Ear System (Type A) Hearing Evaluation: Transducer(s) Used: Insert Earphones, Bone Conduction Method: Conventional Audiometry Stimuli Used: Pure Tones Right Ear: Description of Hearing: Mild sloping to severe sensorineural hearing loss from 250-8000 Hz. Left Ear: Description of Hearing: Mild sloping to severe sensorineural hearing loss from 250-8000 Hz. Speech Recognition Threshold (SRT): Method Used: Recorded Lists Stimuli Used: Spondee Words Right Ear: 35 dBHL Left Ear: 35 dBHL Word Discrimination: Method: Recorded Lists Word Lists Used: Lista Bisil?bica (Citizen [place]) Right Ear: 100% at 80 dBHL Left Ear: 100% at 80 dBHL Recommendations: Audiological re-evaluation in one year. Trial with amplification is recommended. Advised patient and her daughter that we do not take her insurance for hearing aids. Recommended that she contact her health insurance company to see if she has a hearing aid benefit and where she can use it. She was welcomed to return should she decide to pursue hearing aids on a private pay basis from our clinic. Diagnosis: Primary Diagnosis: H90.3 Bilateral Sensorineural Hearing Loss Services Performed: Services Performed: Comprehensive Audiological Evaluation (CPT 59914) Tympanometry (CPT 96678) Signature: Provider: Radha Traylor, [facility]
== END 2021-05-29 10:22 | disposition home or self-care (01) ==
LOC: HO.SH 10:21
PROVIDERS: Visit Provider Internal Medicine
DX: H90.3 Sensorineural hearing loss, bilateral (principal)
CPT/HCPCS: 92557; 92567

== ENCOUNTER → 2021-06-08 08:32 | Outpatient (BNVA) | payer MEDICARE, SELFPAY | DX: R35.0 Frequency of micturition (principal); N32.81 Overactive bladder; I10 Essential (primary) hypertension; E11.319 Type 2 diabetes mellitus with unspecified diabetic retinopathy without macular edema; E11.42 Type 2 diabetes mellitus with diabetic polyneuropathy; E78.00 Pure hypercholesterolemia, unspecified; E55.9 Vitamin D deficiency, unspecified; Z79.4 Long term (current) use of insulin; Z88.0 Allergy status to penicillin | CPT/HCPCS: 99212 ==

== ENCOUNTER → 2021-06-13 13:16 | Outpatient (BNVA) | payer MEDICARE, SELFPAY | PROVIDERS: PCP Internal Medicine; Visit Provider Nurse Practitioner Gerontology | DX: E11.65 Type 2 diabetes mellitus with hyperglycemia (principal); E11.3393 Type 2 diabetes mellitus with moderate nonproliferative diabetic retinopathy without macular edema, bilateral; E11.42 Type 2 diabetes mellitus with diabetic polyneuropathy; E78.5 Hyperlipidemia, unspecified; E55.9 Vitamin D deficiency, unspecified; E66.9 Obesity, unspecified; I10 Essential (primary) hypertension; Z79.4 Long term (current) use of insulin | CPT/HCPCS: 82947; 99212 ==

== ENCOUNTER → 2021-06-25 13:04 | Outpatient (BNVA) | payer MEDICARE, SELFPAY | PROVIDERS: PCP Internal Medicine; Visit Provider Nurse Practitioner Gerontology | DX: E11.65 Type 2 diabetes mellitus with hyperglycemia (principal); E11.42 Type 2 diabetes mellitus with diabetic polyneuropathy; E11.3393 Type 2 diabetes mellitus with moderate nonproliferative diabetic retinopathy without macular edema, bilateral; E78.5 Hyperlipidemia, unspecified; E55.9 Vitamin D deficiency, unspecified; I10 Essential (primary) hypertension; E66.9 Obesity, unspecified; E03.9 Hypothyroidism, unspecified; Z68.32 Body mass index [BMI] 32.0-32.9, adult; Z88.0 Allergy status to penicillin; Z79.4 Long term (current) use of insulin; Z46.81 Encounter for fitting and adjustment of insulin pump; Z79.899 Other long term (current) drug therapy | CPT/HCPCS: 82947; 99212 ==

== ENCOUNTER → 2021-07-09 08:45 | Outpatient (BNVA) | payer MEDICARE, SELFPAY | PROVIDERS: PCP Internal Medicine | DX: N32.81 Overactive bladder (principal) | CPT/HCPCS: Q3014 ==

== ENCOUNTER 2021-07-12 12:24 | Outpatient (REF) | payer MEDICARE, SELFPAY ==
--- NOTE | ~2021-07-12 | XR_ITS ---
EXAMINATION: XR ANKLE, LEFT CLINICAL INFORMATION: Ankle pain. COMPARISON: None. TECHNIQUE: AP, lateral, and mortise views of the left ankle. FINDINGS: No acute fracture or dislocation. Ankle mortise is maintained. Tiny tibiotalar marginal osteophytes. No osseous erosion. Plantar and dorsal calcaneal enthesophytes. Medial subcutaneous edema. XR/XR ankle LT min 3V IMPRESSION: Medial subcutaneous edema without acute fracture or dislocation. Mild tibiotalar osteoarthritis. Plantar and dorsal calcaneal spurs.
== END 2021-07-12 12:25 | disposition home or self-care (01) ==
LOC: HO.HOSX 12:24
PROVIDERS: Visit Provider Physician Assistant
DX: M25.572 Pain in left ankle and joints of left foot (principal); G89.29 Other chronic pain
CPT/HCPCS: 73610; 99212

== ENCOUNTER → 2021-07-13 11:15 | Outpatient (BNVA) | payer MEDICARE, SELFPAY | PROVIDERS: PCP Internal Medicine; Referring Provider Internal Medicine; Visit Provider Nurse Practitioner | DX: K59.04 Chronic idiopathic constipation (principal); K21.9 Gastro-esophageal reflux disease without esophagitis; K64.9 Unspecified hemorrhoids; B37.9 Candidiasis, unspecified; N81.6 Rectocele | CPT/HCPCS: 99212 ==

== ENCOUNTER → 2021-07-17 10:30 | Outpatient (REF) | payer MEDICARE, SELFPAY ==
--- NOTE | 2021-07-17 10:33 | CA_ITS ---
Transthoracic Echocardiogram Patient (Last, First, Middle): Debo Marquez, Gender: Female Date of : 1955 Age: 66 Procedure Date: 07/17/2021 Procedure Type: Transthoracic Echocardiogram Location: OP Height: 162.56 cm Weight: 76.66 kg BSA: 1.82 m2 Heart Rate: bpm BP: 122 / 60 mmHg Semiconductor Equipment Technician: Referring MD: Sanjay Parsons MD Symptoms: I95.1 - Orthostatic hypotension Study Quality: Fair ECG Rhythm: Sinus Conclusions: - The left ventricular systolic function is normal. The calculated ejection fraction is 66% by biplane method. - There is mild calcification of the aortic valve. - No obvious valvular pathology seen on this study. Findings Left Ventricle Normal left ventricular cavity size. The left ventricular systolic function is normal. The calculated ejection fraction is 66% by biplane method. There is no evidence of regional wall motion abnormalities. E/E prime ratio is between 8 and 15 consistent with indeterminate filling pressures. Evidence suggests grade I (mild) diastolic dysfunction. There is mild septal and mild basal asymmetric hypertrophy. Right Ventricle Normal right ventricular cavity size and systolic function. Atria Both atria are normal in size. Aortic Valve There is mild calcification of the aortic valve. There is no aortic valve stenosis. There is no aortic valve regurgitation. Mitral Valve The mitral valve appears normal. There is trace mitral valve regurgitation. There is no mitral valve stenosis. Pulmonic Valve The pulmonic valve was not well visualized. Tricuspid Valve Normal tricuspid valve structure. There is trace tricuspid valve regurgitation. The pulmonary artery systolic pressure is normal. Great Vessels The aortic annulus is normal in size. Venous The inferior vena cava is normal in size and collapses greater than 50% with inspiration. Pericardium/Pleural Prominent epicardial adipose tissue noted. There is no evidence of pericardial effusion. Prior Study Comparison No significant change compared to prior study dated: 09/21/2018. Recommendations, Care & Conclusions No obvious valvular pathology seen on this study. Measurements 2D Linear Measurements IVSd: 1.48 0.6-0.9/0.6-1.0 cm LVIDd: 4.04 3.9-5.3/4.2-5.9 cm LVIDd Index: 2.22 2.4-3.2/2.2-3.1 cm/m2 LVIDs: 2.57 2.0-3.6 cm LVPWd: 1.35 0.7-1.1 cm LA Diam: 2.60 2.7-3.8/3.0-4.0 cm LAIDs Index: 1.43 1.5-2.3 cm/m2 LV Mass: 268.64 67-162/88-224 g LV Mass Index: 147.60 43-95/49-115 g/m2 LVOT Diam: 2.20 3.0+(-)1.3 cm 2D Systolic Function EF 4C: 74.00 >55% EF 2C: 54.60 >55% EF BiP: 66.40 >55% Mitral Valve MV Pk E: 0.53 MV PK A: 1.00 MV Decel Time: 137.00 E/A: 0.50 E'Lateral: 4.35 E'Medial: 4.03 E/E' Med: 13.20 E/E' Lat: 12.20 PHT: 40.00 MVA PHT: 5.50 Decel Butts: 3.87 Aortic Valve AoV Pk Jose Luis: 1.54 AoV Mn Jose Luis: 1.10 AoV VTI: 0.33 AoV Pk Grad: 9.00 Aov Mn Grad: 5.00 KUSH Cont.VTI: 2.23 LVOT LVOT Pk Jose Luis: 0.91 LVOT Mn Jose Luis: 0.63 LVOT VTI: 0.19 LVOT Pk Grad: 3.00 LVOT Mn Grad: 2.00 LVOT Diam: 2.20 LVOT Area: 3.80 Diastolic Function MV Pk E: 0.53 MV Pk A: 1.00 E/A: 0.50 E'Medial: 4.03 E/E' Med: 13.20 E' Laterial: 4.35 E/E' Lat: 12.20 Right Ventricle TVS' Jose Luis: 10.00 Tricuspid Valve TR Pk Jose Luis: 1.84 TR Pk Grad: 14.00 Pulmonary Valve PV Pk Jose Luis: 0.83 Peak PV Grad: 3.00 Updated in Other Vendor System with Status of Final Sanjay Parsons MD electronically signed on 07/17/2021 3:00:26 PM with status of Final
== END ==
LOC: HO.CARD 10:30
PROVIDERS: PCP Internal Medicine; Visit Provider Internal Medicine
DX: I95.1 Orthostatic hypotension (principal)
CPT/HCPCS: 93306

== ENCOUNTER → 2021-08-08 13:25 | Outpatient (BNVA) | payer MEDICARE, SELFPAY | PROVIDERS: PCP Internal Medicine; Referring Provider Internal Medicine; Visit Provider Internal Medicine | DX: I95.1 Orthostatic hypotension (principal); R42 Dizziness and giddiness; R94.31 Abnormal electrocardiogram [ECG] [EKG]; W19.XXXD Unspecified fall, subsequent encounter | CPT/HCPCS: 99212 ==

== ENCOUNTER → 2021-08-23 13:43 | Outpatient (BNVA) | payer MEDICARE, SELFPAY | PROVIDERS: PCP Internal Medicine; Visit Provider Physician Assistant | DX: M25.572 Pain in left ankle and joints of left foot (principal); G89.29 Other chronic pain | CPT/HCPCS: 99212 ==

== ENCOUNTER → 2021-10-22 12:35 | Outpatient (BNVA) | payer MEDICARE, SELFPAY | PROVIDERS: PCP Internal Medicine; Visit Provider Nurse Practitioner Gerontology | DX: E11.65 Type 2 diabetes mellitus with hyperglycemia (principal); E11.3393 Type 2 diabetes mellitus with moderate nonproliferative diabetic retinopathy without macular edema, bilateral; E11.42 Type 2 diabetes mellitus with diabetic polyneuropathy; E78.5 Hyperlipidemia, unspecified; E55.9 Vitamin D deficiency, unspecified; E66.9 Obesity, unspecified; I10 Essential (primary) hypertension; Z68.30 Body mass index [BMI] 30.0-30.9, adult; Z79.4 Long term (current) use of insulin | CPT/HCPCS: 82947; 83036; 99212 ==

== ENCOUNTER → 2021-10-23 13:41 | Outpatient (BNVA) | payer MEDICARE, SELFPAY | PROVIDERS: PCP Internal Medicine; Visit Provider Registered Nurse Diabetes Educator | DX: E11.42 Type 2 diabetes mellitus with diabetic polyneuropathy (principal); Z79.4 Long term (current) use of insulin; Z96.41 Presence of insulin pump (external) (internal) | CPT/HCPCS: 99211 ==

== ENCOUNTER 2021-11-02 09:07 | Outpatient (REF) | payer MEDICARE, SELFPAY | END 2021-11-02 09:08 | disposition home or self-care (01) | LOC: HO.LAB 09:07 | PROVIDERS: PCP Internal Medicine; Visit Provider Internal Medicine | DX: Z13.89 Encounter for screening for other disorder (principal) ==

== ENCOUNTER 2021-11-05 12:04 | Outpatient (REF) | payer MEDICARE, SELFPAY ==
--- NOTE | ~2021-11-05 | MM_ITS ---
EXAMINATION: MM SCREENING DIGITAL BREAST TOMOSYNTHESIS, BILATERAL CLINICAL INFORMATION: Screening. Asymptomatic. The lifetime risk of breast cancer based on the Tyrer-Cuzick Model is 3%. COMPARISON: Mammography: 09/09/2020, 09/06/2019, 08/04/2018 TECHNIQUE: Digital breast tomosynthesis is performed in both the craniocaudal and mediolateral oblique views along with computer-aided detection (CAD). Synthesized 2D images are generated from the tomosynthesis. Additional left CC and left MLO views are provided. FINDINGS: There are scattered areas of fibroglandular density (ACR BI-RADS breast composition Category b). There are no significant masses, abnormal calcifications, or other abnormalities. Parenchymal pattern is similar to prior studies. There is no developing density or architectural abnormality. The axilla and skin contours are unremarkable. No significant changes. MM/MM tomosynthesis screening BI IMPRESSION: No mammographic evidence of malignancy. ASSESSMENT: BI-RADS 1: Negative RECOMMENDATION: Routine annual mammography screening. This patient's information was entered into a reminder system with a target due date for their next mammogram.
== END 2021-11-05 12:05 | disposition home or self-care (01) ==
LOC: HO.MAMMO 12:04
PROVIDERS: Visit Provider Internal Medicine
DX: Z12.31 Encounter for screening mammogram for malignant neoplasm of breast (principal)
CPT/HCPCS: 77063; 77067

== ENCOUNTER → 2021-11-06 12:14 | Outpatient (BNVA) | payer MEDICARE, SELFPAY | PROVIDERS: PCP Internal Medicine; Visit Provider Registered Nurse Diabetes Educator | DX: E11.42 Type 2 diabetes mellitus with diabetic polyneuropathy (principal) | CPT/HCPCS: 99211 ==

== ENCOUNTER → 2021-11-08 12:17 | Outpatient (BNVA) | payer MEDICARE, SELFPAY | PROVIDERS: PCP Internal Medicine; Referring Provider Internal Medicine; Visit Provider Internal Medicine | DX: I95.1 Orthostatic hypotension (principal); I35.9 Nonrheumatic aortic valve disorder, unspecified; R94.31 Abnormal electrocardiogram [ECG] [EKG]; W19.XXXD Unspecified fall, subsequent encounter | CPT/HCPCS: 99212 ==

== ENCOUNTER → 2021-12-05 12:30 | Outpatient (BNVA) | payer MEDICARE, SELFPAY | PROVIDERS: PCP Internal Medicine; Visit Provider Registered Nurse Diabetes Educator | DX: E11.65 Type 2 diabetes mellitus with hyperglycemia (principal) | CPT/HCPCS: 99211 ==

== ENCOUNTER → 2021-12-19 11:25 | Outpatient (BNVA) | payer MEDICARE, SELFPAY | PROVIDERS: PCP Internal Medicine; Visit Provider Registered Nurse Diabetes Educator | DX: E11.65 Type 2 diabetes mellitus with hyperglycemia (principal) | CPT/HCPCS: 99211 ==

== ENCOUNTER 2021-12-27 09:13 | Outpatient (REF) | payer MEDICARE, SELFPAY ==
[2021-12-27 09:43] LABS: MANUAL DIFF FLAG NO
[2021-12-27 10:10] LABS: Basophils Percent Auto 0.5 % (0-2); Eosinophils Absolute Auto 0.1 X10*3/uL (0.0-0.4); Eosinophils Percent Auto 2.4 % (0-4); Hematocrit 37.2 % (37.0-47.0); Hemoglobin 12.1 g/dl (12.0-16.0); Imm Gran Abs Auto 0.01 X10*3/uL (0.00-0.03); Imm Gran Pct Auto 0.2 % (0.0-0.4); Lymphocytes Absolute Auto 1.8 X10*3/uL (1.2-4.9); Lymphocytes Percent Auto 43.2 % (20-40); Mean Corpuscular HGB Conc 32.5 g/dl (31.0-35.0); Mean Corpuscular Hemoglobin 30.3 pg (27.0-33.0); Mean Corpuscular Volume 93.2 fL (80.0-98.0); Mean Platelet Volume 9.9 fL (9.4-12.3); Monocytes Absolute Auto 0.3 X10*3/uL (0.1-1.2); Monocytes Percent Auto 6.7 % (2-11); Platelet Count 124 X10*3/uL (160-400); Red Blood Count 3.99 X10*6/uL (4.20-5.50); Red Cell Distribution Width 12.9 % (11.0-16.0); White Blood Count 4.2 X10*3/uL (4.8-10.8)
[2021-12-27 10:38] LABS: Estimated Average Glucose 131 mg/dL; Hemoglobin A1c % 6.2 %
[2021-12-27 10:42] LABS: Creatinine Urine 96.46 mg/dL; Microalbum/Creatinine Ratio Ur 22.8 ug/mg cr
[2021-12-27 11:02] LABS: Alanine Aminotransferase 31 U/L (0-31); Albumin Level 3.9 g/dL (3.5-5.0); Alkaline Phosphatase 121 U/L (39-117); Anion Gap 12 (12-20); Aspartate Amino Transferase 37 U/L (5-31); Bilirubin Total 0.3 mg/dL (0.0-1.0); Blood Urea Nitrogen 27 mg/dL (9-16); Calcium 9.6 mg/dL (8.4-10.2); Carbon Dioxide 28 mmol/L (22-29); Chloride 107 mmol/L (96-108); Cholesterol 121 mg/dL; Estimated Glomerular Filt Rate > 60; Glucose Fasting 131 mg/dL (60-99); HDL Cholesterol 47 mg/dL; LDL Cholesterol Calculated 54 mg/dl; Potassium 4.8 mmol/L (3.3-5.1); Sodium 142 mmol/L (135-145); Total Protein 6.9 g/dL (6.5-8.0); Triglycerides 103 mg/dL
[2021-12-27 11:06] LABS: Appearance Urine CLEAR; Color Urine YELLOW; Glucose Urine UA NEG (NEG); Leukocyte Esterase Urine NEG (NEG); Nitrite Urine NEG (NEG); Urine Blood NEG (NEG); Urine Ketones NEG (NEG); Urine Protein NEG (NEG-TRACE)
[2021-12-27 11:07] LABS: Free T4 (Free Thyroxine) 1.01 ng/dL (0.71-1.85); Thyroid Stimulating Hormone 1.26 uIU/mL (0.32-4.0); Vitamin D 25-OH Total 37.1 ng/mL (>30)
== END 2021-12-27 09:14 | disposition home or self-care (01) ==
LOC: HO.LAB 09:13
PROVIDERS: PCP Internal Medicine; Visit Provider Internal Medicine
DX: I10 Essential (primary) hypertension (principal); E55.9 Vitamin D deficiency, unspecified; E03.9 Hypothyroidism, unspecified; E11.9 Type 2 diabetes mellitus without 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s; E78.00 Pure hypercholesterolemia, unspecified
CPT/HCPCS: 36415; 80053; 80061; 81003; 82043; 82306; 83036; 84439; 84443; 85025

== ENCOUNTER → 2022-01-04 12:52 | Outpatient (BNVA) | payer MEDICARE, SELFPAY | PROVIDERS: PCP Internal Medicine; Visit Provider Advanced Practice Midwife | DX: Z13.89 Encounter for screening for other disorder (principal) ==

== ENCOUNTER → 2022-01-07 08:18 | Outpatient (BNVA) | payer MEDICARE, SELFPAY | PROVIDERS: PCP Internal Medicine | DX: N39.0 Urinary tract infection, site not specified (principal) | CPT/HCPCS: Q3014 ==

== ENCOUNTER 2022-01-07 11:29 | Outpatient (REF) | payer MEDICARE, SELFPAY | END 2022-01-07 11:30 | disposition home or self-care (01) | LOC: HO.WFDLNP 11:29 | DX: N39.0 Urinary tract infection, site not specified (principal) | CPT/HCPCS: 87086 ==

== ENCOUNTER → 2022-01-11 11:12 | Outpatient (BNVA) | payer MEDICARE, SELFPAY | PROVIDERS: PCP Internal Medicine; Referring Provider Internal Medicine; Visit Provider Nurse Practitioner | DX: K59.04 Chronic idiopathic constipation (principal); K21.9 Gastro-esophageal reflux disease without esophagitis; N81.6 Rectocele; K30 Functional dyspepsia; Z79.899 Other long term (current) drug therapy | CPT/HCPCS: 99212 ==

== ENCOUNTER → 2022-01-17 14:35 | Outpatient (BNVA) | payer MEDICARE, SELFPAY | PROVIDERS: PCP Internal Medicine; Visit Provider Registered Nurse Diabetes Educator | DX: E11.65 Type 2 diabetes mellitus with hyperglycemia (principal); Z46.81 Encounter for fitting and adjustment of insulin pump | CPT/HCPCS: 99211 ==

== ENCOUNTER → 2022-01-21 09:16 | Outpatient (BNVA) | payer MEDICARE, SELFPAY | PROVIDERS: PCP Internal Medicine; Visit Provider Anesthesiology | DX: E11.40 Type 2 diabetes mellitus with diabetic neuropathy, unspecified (principal); M48.12 Ankylosing hyperostosis [Forestier], cervical region; G89.4 Chronic pain syndrome; F02.81 Dementia in other diseases classified elsewhere, unspecified severity, with behavioral disturbance | CPT/HCPCS: 99202 ==

== ENCOUNTER → 2022-02-05 12:54 | Outpatient (BNVA) | payer MEDICARE, SELFPAY | PROVIDERS: PCP Internal Medicine; Visit Provider Nurse Practitioner Gerontology | DX: E11.65 Type 2 diabetes mellitus with hyperglycemia (principal); E11.3393 Type 2 diabetes mellitus with moderate nonproliferative diabetic retinopathy without macular edema, bilateral; E11.42 Type 2 diabetes mellitus with diabetic polyneuropathy; E78.5 Hyperlipidemia, unspecified; E55.9 Vitamin D deficiency, unspecified; E66.9 Obesity, unspecified; E04.9 Nontoxic goiter, unspecified; I10 Essential (primary) hypertension; Z79.4 Long term (current) use of insulin | CPT/HCPCS: 82947; 99212 ==

== ENCOUNTER → 2022-02-15 15:56 | Outpatient (BNVA) | payer MEDICARE, SELFPAY | PROVIDERS: PCP Internal Medicine; Referring Provider Internal Medicine; Visit Provider Nurse Practitioner | DX: K59.04 Chronic idiopathic constipation (principal); K21.9 Gastro-esophageal reflux disease without esophagitis; K30 Functional dyspepsia; N81.6 Rectocele | CPT/HCPCS: 99212 ==

== ENCOUNTER → 2022-03-15 12:27 | Outpatient (BNVA) | payer MEDICARE, SELFPAY | PROVIDERS: PCP Internal Medicine; Visit Provider Registered Nurse Diabetes Educator | DX: E11.42 Type 2 diabetes mellitus with diabetic polyneuropathy (principal); Z79.4 Long term (current) use of insulin; Z46.81 Encounter for fitting and adjustment of insulin pump; K30 Functional dyspepsia; K59.04 Chronic idiopathic constipation; K21.9 Gastro-esophageal reflux disease without esophagitis; N81.6 Rectocele | CPT/HCPCS: 99211; 99212 ==

== ENCOUNTER → 2022-03-21 11:31 | Outpatient (BNVA) | payer MEDICARE, SELFPAY | PROVIDERS: PCP Internal Medicine; Visit Provider Registered Nurse Diabetes Educator | DX: Z46.81 Encounter for fitting and adjustment of insulin pump (principal); E11.42 Type 2 diabetes mellitus with diabetic polyneuropathy | CPT/HCPCS: 99211 ==

== ENCOUNTER 2022-03-27 09:58 | Outpatient (REF) | payer MEDICARE, SELFPAY ==
--- NOTE | ~2022-03-27 | XR_ITS ---
EXAMINATION: XR ANKLE, LEFT CLINICAL INFORMATION: Sprain left ankle. COMPARISON: Left ankle 07/12/2021. TECHNIQUE: AP, lateral, and mortise views of the left ankle. FINDINGS: There is bimalleolar soft tissue swelling. No visible acute fracture or dislocation seen. The ankle mortise and subtalar joints are normal. There is a small calcaneal heel and retrocalcaneal enthesophytes. No lytic or sclerotic process seen. XR/XR ankle LT min 3V IMPRESSION: No acute fracture or dislocation. Bimalleolar soft tissue swelling likely ligamentous injury. Small calcaneal heel and retrocalcaneal enthesophytes.
== END 2022-03-27 09:59 | disposition home or self-care (01) ==
LOC: HO.XRAY 09:58
PROVIDERS: PCP Internal Medicine; Visit Provider Anesthesiology
DX: M48.12 Ankylosing hyperostosis [Forestier], cervical region (principal); G89.4 Chronic pain syndrome; S93.402A Sprain of unspecified ligament of left ankle, initial encounter; S82.892A Other fracture of left lower leg, initial encounter for closed fracture; X58.XXXA Exposure to other specified factors, initial encounter; Y93.9 Activity, unspecified; Y92.9 Unspecified place or not applicable; Y99.8 Other external cause status; E11.40 Type 2 diabetes mellitus with diabetic neuropathy, unspecified; E11.319 Type 2 diabetes mellitus with unspecified diabetic retinopathy without macular edema; I10 Essential (primary) hypertension; E78.00 Pure hypercholesterolemia, unspecified; E03.9 Hypothyroidism, unspecified; F02.81 Dementia in other diseases classified elsewhere, unspecified severity, with behavioral disturbance; F32.A Depression, unspecified
CPT/HCPCS: 73610; 99212

== ENCOUNTER 2022-04-01 09:37 | Outpatient (REF) | payer OTHER, SELFPAY ==
[2022-04-01 09:49] LABS: MANUAL DIFF FLAG NO
[2022-04-01 10:43] LABS: Basophils Percent Auto 0.7 % (0-2); Eosinophils Absolute Auto 0.1 X10*3/uL (0.0-0.4); Eosinophils Percent Auto 2.8 % (0-4); Estimated Average Glucose 166 mg/dL; Hemoglobin 12.9 g/dl (12.0-16.0); Hemoglobin A1c % 7.4 %; Imm Gran Abs Auto 0.01 X10*3/uL (0.00-0.03); Imm Gran Pct Auto 0.2 % (0.0-0.4); Lymphocytes Absolute Auto 1.9 X10*3/uL (1.2-4.9); Lymphocytes Percent Auto 40.2 % (20-40); Mean Corpuscular HGB Conc 33.1 g/dl (31.0-35.0); Mean Corpuscular Hemoglobin 30.5 pg (27.0-33.0); Mean Corpuscular Volume 92.2 fL (80.0-98.0); Mean Platelet Volume 9.7 fL (9.4-12.3); Monocytes Absolute Auto 0.3 X10*3/uL (0.1-1.2); Monocytes Percent Auto 6.5 % (2-11); Neutrophils Absolute Auto 2.3 x10*3/uL (2.0-8.3); Neutrophils Percent Auto 49.6 % (45-73); Platelet Count 135 X10*3/uL (160-400); Red Blood Count 4.23 X10*6/uL (4.20-5.50); Red Cell Distribution Width 13.3 % (11.0-16.0); White Blood Count 4.6 X10*3/uL (4.8-10.8)
[2022-04-01 11:06] LABS: Appearance Urine CLEAR; Color Urine YELLOW; Glucose Urine UA NEG (NEG); Leukocyte Esterase Urine NEG (NEG); Nitrite Urine NEG (NEG); PH 5.5 (5.0-8.0); Specific Gravity - Urine >= 1.030 (1.005-1.025); Urine Blood NEG (NEG); Urine Ketones NEG (NEG); Urine Protein NEG (NEG-TRACE)
[2022-04-01 11:20] LABS: Free T4 (Free Thyroxine) 1.08 ng/dL (0.71-1.85); Thyroid Stimulating Hormone 1.54 uIU/mL (0.32-4.0); Vitamin D 25-OH Total 28.1 ng/mL (>30)
[2022-04-01 11:26] LABS: Alanine Aminotransferase 30 U/L (0-31); Albumin Level 4.1 g/dL (3.5-5.0); Alkaline Phosphatase 132 U/L (39-117); Anion Gap 10 (12-20); Aspartate Amino Transferase 37 U/L (5-31); Bilirubin Total 0.5 mg/dL (0.0-1.0); Blood Urea Nitrogen 24 mg/dL (9-16); Calcium 9.4 mg/dL (8.4-10.2); Carbon Dioxide 28 mmol/L (22-29); Chloride 105 mmol/L (96-108); Cholesterol 120 mg/dL; Estimated Glomerular Filt Rate > 60; Glucose Fasting 147 mg/dL (60-99); HDL Cholesterol 45 mg/dL; LDL Cholesterol Calculated 47 mg/dl; Potassium 4.3 mmol/L (3.3-5.1); Sodium 139 mmol/L (135-145); Total Protein 7.3 g/dL (6.5-8.0); Triglycerides 142 mg/dL
[2022-04-01 11:48] LABS: Creatinine Urine 140.79 mg/dL; Microalbum/Creatinine Ratio Ur 20.5 ug/mg cr
== END 2022-04-01 09:38 | disposition home or self-care (01) ==
LOC: HO.LAB 09:37
PROVIDERS: PCP Internal Medicine; Visit Provider Internal Medicine
DX: E03.9 Hypothyroidism, unspecified (principal); E78.00 Pure hypercholesterolemia, unspecified; E55.9 Vitamin D deficiency, unspecified; E11.9 Type 2 diabetes mellitus without 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s; I10 Essential (primary) hypertension
CPT/HCPCS: 36415; 80053; 80061; 81003; 82043; 82306; 83036; 84439; 84443; 85025

== ENCOUNTER → 2022-04-03 12:33 | Outpatient (BNVA) | payer OTHER, SELFPAY | PROVIDERS: PCP Internal Medicine; Visit Provider Registered Nurse Diabetes Educator | DX: E11.42 Type 2 diabetes mellitus with diabetic polyneuropathy (principal); Z46.81 Encounter for fitting and adjustment of insulin pump; Z79.4 Long term (current) use of insulin | CPT/HCPCS: 99211 ==

== ENCOUNTER 2022-04-07 11:35 | Emergency (ER) | payer OTHER, SELFPAY ==
--- NOTE | ~2022-04-07 | US_ITS ---
EXAMINATION: US VENOUS ULTRASOUND WITH DOPPLER LOWER EXTREMITY, RIGHT CLINICAL INFORMATION: Pain and discoloration COMPARISON: None TECHNIQUE: Ultrasound of the deep veins is performed from the hip to the calf with compression sonography and color and pulse Doppler assessment. Spectral analysis with color-flow imaging is performed. FINDINGS: There is normal venous compression and respiratory variation and augmented flow. The visualized common femoral vein, superficial femoral vein, profunda femoral vein, popliteal vein, and the trifurcation region shows no evidence of deep venous thrombosis. There is no significant popliteal fossa cyst. If the patient's symptoms persist, followup ultrasound in 5 days 7 days might be of value to exclude proximal propagation from a non-visualized calf vein. US/US venous duplex LE RT IMPRESSION: No DVT demonstrated in the right lower extremity.
[2022-04-07 11:38] VITALS: BP 138/71; PULSE 88; RESP 18; TEMP 36.5; O2SAT 92; BMI 31.1
--- NOTE | 2022-04-07 14:19 | ED_ITS ---
HPI - Extremity Injury (Lower) General Chief Complaint: Extremity Injury, Lower Stated Complaint: R leg pain/redness (diabetic) Time Seen by Provider: 04/07/22 14:03 Source: patient and family (Daughter, Mary) Mode of arrival: ambulatory Limitations: language barrier (Portuguese speaking only) and altered mental status (Dementia) History of Present Illness HPI Narrative: 67-year-old female who was brought to the emergency department by her daughter for evaluation of right lower extremity swelling and pain. The patient has dementia and lacks insight as to why she is here. According to the daughter, yesterday, they went for a walk in a store. The patient was having pain in her left leg and was favoring her right leg. The daughter was concerned that the patient's right leg was given swollen and red. When they got home the daughter states the patient's leg is red from the hip down to the foot and the right leg was swollen compared to the left. The patient is also complaining of pain from her right hip down to her right foot. The patient did not have any injury. The daughter believes that the patient had a DVT in the past cannot recall which leg was affected. The daughter does not remember the treatment. The patient takes aspirin only. The daughter states patient has been in her usual state of health except for the leg swelling and pain. The patient has not complained of chest pain, chills, shortness of breath, nausea or vomiting. MD complaint: other (Right leg swelling and redness) Onset (ago): day(s) (2) Type of Injury: other (No injury) Place: other (Started while walking in the store yesterday) Severity: moderate Relieving factors: nothing Exacerbating factors: nothing Other symptoms: none Related Data Home Medications Medication Instructions Recorded Confirmed clonazepam 1 mg tablet 1 mg PO BEDTIME 09/06/20 04/02/22 dorzolamide 22.3 mg-timolol 6.8 1 drp ophthalmic (eye) BID 09/27/20 04/02/22 mg/mL eye drops quetiapine 25 mg tablet 75 mg PO BEDTIME 09/27/20 04/02/22 melatonin 3 mg tablet 6 mg PO BEDTIME PRN 05/08/21 04/02/22 netarsudil 0.02 % eye drops 1 drp ophthalmic (eye) BEDTIME 07/09/21 04/02/22 (Rhopressa) lifitegrast 5 % eye drops in a 1 drp ophthalmic (eye) BID 07/13/21 04/02/22 dropperette (Xiidra) insulin pump cart,cont inf,BT #5 ea 01/07/22 04/02/22 (Omnipod Dash Pods (Gen 4)) latanoprost 0.005 % eye drops 1 drp ophthalmic (eye) BEDTIME 01/07/22 04/02/22 mirtazapine 30 mg tablet 30 mg PO QPM 01/07/22 04/02/22 erenumab-aooe 140 mg/mL 140 mg subcut 01/21/22 04/02/22 subcutaneous auto-injector (Aimovig Autoinjector) galcanezumab-gnlm 120 mg/mL 120 mg subcut 03/15/22 04/02/22 subcutaneous pen injector (Emgality Pen) Previous Rx's Medication Instructions Recorded docusate sodium 50 mg capsule 100 mg PO BID 30 days #120 caps 07/19/20 (Colace Clear) benzonatate 100 mg capsule 100 mg PO TID PRN cough 10 days 10/25/20 #30 caps diaper,brief,adult,disposable #160 ea 04/13/21 (Overnight Underwear Large) miscellaneous medical supply See Rx Instructions miscellaneous 04/13/21 .COMPLEX #3 ea Omnipod Classic Pods (Gen 3) 1 ea subcut Q3D 30 days #10 ea 04/17/21 (insulin pump cartridge) blood sugar diagnostic (FreeStyle #150 ea 04/19/21 Lite Strips) betamethasone dipropionate 0.05 % 1 appl topical DAILY #15 grams 06/08/21 topical cream donepezil 10 mg tablet 10 mg PO BEDTIME #90 tabs 06/24/21 oxybutynin chloride 10 mg 10 mg PO DAILY 30 days #90 tabs 07/30/21 tablet,extended release 24 hr fluticasone propionate 50 2 spray intranasal DAILY PRN for 10/17/21 mcg/actuation nasal congestion #48 mL spray,suspension insulin pump cartridge (Omnipod #5 ea 10/29/21 Dash Insulin Pod) pantoprazole 40 mg tablet,delayed 40 mg PO BID #180 tabs 11/22/21 release bisacodyl 5 mg tablet,delayed 10 mg PO BEDTIME #60 tabs 11/28/21 release (Laxative (bisacodyl)) nystatin 100,000 unit/gram topical 1 appl topical QID #60 grams 11/28/21 cream scopolamine base 1 mg over 3 days 1 patch transdermal Q3D PRN for 11/28/21 transdermal patch dizziness #10 patches simethicone 180 mg capsule 180 mg PO QID #120 caps 11/28/21 aspirin 81 mg tablet,delayed 81 mg PO DAILY #90 tabs 12/05/21 release fluoxetine 20 mg capsule 20 mg PO BID #180 caps 12/05/21 rosuvastatin 40 mg tablet 40 mg PO DAILY #90 tabs 12/05/21 ADULT DIAPERS/BRIEFS #100 ea 12/18/21 PERSONAL CLEANING WIPES #100 ea 12/18/21 UNDERPADS #100 ea 12/18/21 methylcellulose (laxative) 500 mg 1,000 mg PO DAILY PRN for 12/19/21 tablet (Fiber Therapy constipation #60 tabs (methylcellulose)) magnesium oxide 400 mg (241.3 mg 400 mg PO BEDTIME #30 tabs 01/11/22 magnesium) tablet metoclopramide HCl 5 mg tablet 5 mg PO QIDACHS #120 tabs 01/11/22 (Reglan) plecanatide 3 mg tablet (Trulance) 3 mg PO DAILY #30 tabs 01/11/22 insulin lispro 100 unit/mL 0 - 76 unit (19554.76 mL) subcut 02/05/22 subcutaneous solution (Humalog DAILY #30 mL U-100 Insulin) hydroxyzine HCl 25 mg tablet 25 mg PO TID PRN for itch #270 tabs 02/25/22 levothyroxine 125 mcg tablet 125 mcg PO QAM #90 tabs 02/27/22 gabapentin 300 mg capsule 300 mg PO TID 30 days #90 caps 03/18/22 cholecalciferol (vitamin D3) 125 125 mcg PO DAILY #90 caps 04/04/22 mcg (5,000 unit) capsule cephalexin 500 mg capsule 500 mg PO TID 7 days #21 caps 04/07/22 Allergies Allergy/AdvReac Type Severity Reaction Status Date / Time Penicillins Allergy Intermediate RASH/HIVES Verified 04/02/22 16:46 Review of Systems Review of Systems: Yes all other systems are reviewed and are negative PMFSH Past Medical History [facility] Narrative: Social history: Patient lives at home with her father and her daughter Mary . Mary is the patient's caregiver. The patient does not smoke cigarettes, does not drink alcohol does not use drugs. Medical History Blind left eye COVID-19 vaccine administered CVA (cerebral vascular accident) Ott catheter in place Thyroid disease Surgical History History of carpal tunnel release History of esophagogastroduodenoscopy (EGD) History of pubovaginal sling Hx of cholecystectomy Hx of colonoscopy Hx of cystoscopy Hx of eye surgery Hx of hysterectomy Family History Family History Father Diabetes Mother Heart problem Brother Diabetes Social History Social History Housing: Apartment Are you a primary child care attendant to a significant other at home: No Do you presently have visiting nurse or other home services: Yes Alcohol intake: never Patient Tobacco Use Status: Never used Tobacco Second Hand Smoke Exposure: No Advance Directives: No Advance Directives Information Provided: No service: No Current occupational status: disabled Gender identity: Female Cognitive needs: No Hearing needs: No Vision needs: Yes Physical Exam Vital Signs: Vital Signs: Last Vital Signs Temp 97.7 F 04/07/22 11:38 Pulse 88 04/07/22 11:38 Resp 18 04/07/22 11:38 BP 138/71 04/07/22 11:38 Pulse Ox 92 04/07/22 11:38 O2 Del Method 04/07/22 11:38 BMI result Body Mass Index 31.1 Const: General: cooperative and no acute distress HEENT: Head: Yes normal to inspection, Yes normocephalic and Yes atraumatic Ears: external ears normal General nose exam: Normal external nose present Face and sinus: Yes normal facial exam Mouth: Normal oral and palatal mucosa present Throat: Yes posterior oropharynx normal Eyes: General: appearance normal, both eyes and all related structures Pupils: Equal, round and reactive pupils present Neck: Neck: Yes normal visual inspection, Yes no lymphadenopathy, Yes trachea midline and Yes supple Chest: Chest palpation & inspection: normal inspection of the chest and normal palpation of entire chest wall Resp: Effort & Inspection: normal respiratory effort and able to speak in complete sentences Auscultation: clear to auscultation bilaterally Cardio: Rate: regular rate Rhythm: regular rhythm Heart sounds: S1 normal heart sound present, S2 normal heart sound present and no murmurs GI: Inspection: Yes normal to inspection Palpation (GI): Soft to palpation, nontender and no guarding Auscultation: normal bowel sounds : General: Yes no CVA tenderness Back/Spine/Pelvis: Back: no CVA tenderness Skin: General skin exam: no rashes or lesions noted Neuro: Cranial nerves: Yes CN's II-XII intact bilaterally and Yes Equal, round and reactive pupils present Cognition (Neuro): normal cognition Motor exam (neuro): 5/5 motor strength present throughout Extrem: Other: The patient's right lower extremity appears to be swollen compared to the left lower extremity, there is some erythema with slight increased warmth over the ankle and foot on the right compared to the left. Psych: Appearance: grossly normal Speech and movement: Normal speech and movement present Affect: normal affect Attitude: cooperative Thought process: Normal thought process present Thought content: Normal thought content present Course Course Course Narrative: 67-year-old female who presents emergency department by her daughter for evaluation of swelling of the right lower extremity compared to the left with some erythema to the distal aspect of the right leg compared to the left. Patient was also complaining of pain. The patient had no injury. Patient does have a remote history of DVT and is not on any took values except for aspirin. Vital signs were normal. Examination did reveal asymmetric nonpitting edema to the right lower extremity clear in the left. Will obtain a duplex ultrasound rule out DVT. Patient was given Tylenol 975 mg orally for pain. 1452: Duplex ultrasound of the right lower extremity revealed no DVT. I did discuss this with the patient's daughter. I did tell her that this is reassuring however a duplex ultrasound can miss a blood clot from the ankle to the knee and that the patient needed replete duplex ultrasound in 4-7 days. The patient will be treated with Keflex 500 mg 3 times a day for 7 days for possible cellulitis. Patient was advised to take Tylenol and to follow-up with PCP return for symptoms get worse or stools you symptoms and concerning to her. Discharge Plan Discharge Clinical Impression: Right leg swelling, Cellulitis of leg, right Patient Disposition: Home, Self-Care Instructions: Cellulitis (ED) Additional Instructions: The duplex ultrasound of your right lower extremity did not reveal any blood clot at this time. This is very reassuring. However, sometimes the duplex ultrasound can miss a blood clot from the ankle to the knee therefore you will need a repeat duplex ultrasound in 4-7 days. Please call your provider tomorrow to arrange a follow-up duplex ultrasound. The right foot and ankle are red and warm to the touch and this is sometimes a sign of an infection therefore I am going to treat you with antibiotics. Take Keflex (cephalexin) 500 mg pills, 1 pill 3 times a day for 7 days. Take Tylenol (acetaminophen) 500 mg pills, 2 pills every 4 to 6 hours as needed for pain. Keep your leg elevated to help reduce the swelling. Follow-up with your doctor in 2 days. Please return to the emergency department if your symptoms get worse or if you develop any symptoms that are concerning to you. Prescriptions: New cephalexin 500 mg capsule 500 mg PO TID 7 Days Qty: 21 0RF No Action Colace Clear 50 mg capsule 100 mg PO BID 30 Days Qty: 120 3RF benzonatate 100 mg capsule 100 mg PO TID PRN (Reason: cough) 10 Days Qty: 30 0RF (DME) Overnight Underwear Large Misc See Rx Instructions .ROUTE .MEDSUPPLY Qty: 160 12RF Rx Instructions: As directed PULL UPS miscellaneous medical supply Misc See Rx Instructions miscellaneous .COMPLEX Qty: 3 12RF Rx Instructions: Wipes miscellaneous; 100 wipebox/ 3 boxes Omnipod Classic Pods (Gen 3) Cartridge 1 ea subcut Q3D 30 Days Qty: 10 6RF (DME) FreeStyle Lite Strips Strip See Rx Instructions .MEDSUPPLY Qty: 150 6RF Rx Instructions: 5 times a day betamethasone dipropionate 0.05 % cream 1 appl topical DAILY Qty: 15 0RF Rx Instructions: APPLY TO AFFECTED AREA ONCE A DAY donepezil 10 mg tablet 10 mg PO BEDTIME Qty: 90 2RF oxybutynin chloride 10 mg tablet extended release 24hr 10 mg PO DAILY 30 Days Qty: 90 3RF fluticasone propionate 50 mcg/actuation spray,suspension 2 spray intranasal DAILY PRN (Reason: for congestion) Qty: 48 1RF (DME) Omnipod Dash Pods (Gen 4) Cartridge See Rx Instructions .ROUTE .MEDSUPPLY Qty: 5 11RF Rx Instructions: As directed every 3 days pantoprazole 40 mg tablet,delayed release (DR/EC) 40 mg PO BID Qty: 180 2RF nystatin 100,000 unit/gram cream 1 appl topical QID Qty: 60 2RF simethicone 180 mg capsule 180 mg PO QID Qty: 120 5RF bisacodyl [Laxative (bisacodyl)] 5 mg tablet,delayed release (DR/EC) 10 mg PO BEDTIME Qty: 60 6RF scopolamine base 1 mg over 3 days patch 3 day 1 patch transdermal Q3D PRN (Reason: for dizziness) Qty: 10 0RF fluoxetine 20 mg capsule 20 mg PO BID Qty: 180 0RF rosuvastatin 40 mg tablet 40 mg PO DAILY Qty: 90 0RF aspirin 81 mg tablet,delayed release (DR/EC) 81 mg PO DAILY Qty: 90 5RF (DME) UNDERPADS 30 x 36 pad See Rx Instructions .Route .MEDSUPPLY Qty: 100 12RF Rx Instructions: As directed (DME) PERSONAL CLEANING WIPES See Rx Instructions .Route .MEDSUPPLY Qty: 100 12RF Rx Instructions: As directed (DME) ADULT DIAPERS/BRIEFS LARGE See Rx Instructions .Route .MEDSUPPLY Qty: 100 12RF Rx Instructions: As directed Fiber Therapy (m-cellulose) 500 mg tablet 1,000 mg PO DAILY PRN (Reason: for constipation) Qty: 60 6RF hydroxyzine HCl 25 mg tablet 25 mg PO TID PRN (Reason: for itch) Qty: 270 1RF levothyroxine 125 mcg tablet 125 mcg PO QAM Qty: 90 0RF gabapentin 300 mg capsule 300 mg PO TID 30 Days Qty: 90 1RF cholecalciferol (vitamin D3) 125 mcg (5,000 unit) capsule 125 mcg PO DAILY Qty: 90 1RF dorzolamide-timolol 22.3-6.8 mg/mL drops 1 drp ophthalmic (eye) BID quetiapine 25 mg tablet 75 mg PO BEDTIME melatonin 3 mg tablet 6 mg PO BEDTIME PRN clonazepam 1 mg tablet 1 mg PO BEDTIME Xiidra 5 % dropperette 1 drp ophthalmic (eye) BID Rx Instructions: administer approximately 12 hours apart Rhopressa 0.02 % drops 1 drp ophthalmic (eye) BEDTIME Emgality Pen 120 mg/mL pen injector 120 mg subcut latanoprost 0.005 % drops 1 drp ophthalmic (eye) BEDTIME mirtazapine 30 mg tablet 30 mg PO QPM (DME) Omnipod Dash Pods (Gen 4) Cartridge See Rx Instructions subcut Q3D Qty: 5 Rx Instructions: As directed Trulance 3 mg tablet 3 mg PO DAILY Qty: 30 6RF magnesium oxide 400 mg (241.3 mg magnesium) tablet 400 mg PO BEDTIME Qty: 30 6RF metoclopramide HCl [Reglan] 5 mg tablet 5 mg PO QIDACHS Qty: 120 6RF Rx Instructions: Prescriber aware of seroquel and prozac use and is monitoring, please dispense insulin lispro [Humalog U-100 Insulin] 100 unit/mL solution 0 - 76 unit subcut DAILY Qty: 30 4RF Aimovig Autoinjector 140 mg/mL auto-injector 140 mg subcut
[2022-04-07] MEDS: Acetaminophen 325 MG TABLET 975 MG PO (14:40)
[2022-04-07 15:11] VITALS: BP 137/74; PULSE 74; RESP 16; TEMP 36.3; O2SAT 96
[2022-04-07] MEDS: cephALEXin 500 MG CAPSULE PO (15:16)
== END 2022-04-07 15:19 | disposition home or self-care (01) ==
PROVIDERS: Emergency Provider Emergency Medicine Emergency Medical Services; PCP Internal Medicine
DX: L03.115 Cellulitis of right lower limb (principal); M79.604 Pain in right leg; H54.40 Blindness, one eye, unspecified eye; Z86.73 Personal history of transient ischemic attack (TIA), and cerebral infarction without residual deficits; Z86.718 Personal history of other venous thrombosis and embolism; Z79.82 Long term (current) use of aspirin
CPT/HCPCS: 93971; 99284

== ENCOUNTER 2022-04-11 14:18 | Outpatient (REF) | payer OTHER, SELFPAY ==
--- NOTE | ~2022-04-11 | US_ITS ---
EXAMINATION: US VENOUS ULTRASOUND WITH DOPPLER LOWER EXTREMITY, RIGHT CLINICAL INFORMATION: Right lower extremity pain COMPARISON: DVT study right leg 4 days ago 04/07/2022 TECHNIQUE: Ultrasound of the deep veins is performed from the hip to the calf with compression sonography and color and pulse Doppler assessment. Spectral analysis with color-flow imaging is performed. FINDINGS: There is normal venous compression and respiratory variation and augmented flow. The visualized common femoral vein, superficial femoral vein, profunda femoral vein, popliteal vein, and the trifurcation region shows no evidence of deep venous thrombosis. There is no significant popliteal fossa cyst. There is a prominent proximal thigh lymph node measuring 3.7 x 0.8 x 2.5 cm. US/US venous duplex LE RT IMPRESSION: No DVT demonstrated in the right lower extremity.
== END 2022-04-11 14:19 | disposition home or self-care (01) ==
LOC: HO.US 14:18
PROVIDERS: Visit Provider Internal Medicine
DX: M79.661 Pain in right lower leg (principal); M79.89 Other specified soft tissue disorders
CPT/HCPCS: 93971

== ENCOUNTER 2022-04-17 15:23 | Emergency (ER) | payer OTHER, SELFPAY ==
--- NOTE | ~2022-04-17 | US_ITS ---
EXAMINATION: US VENOUS ULTRASOUND WITH DOPPLER LOWER EXTREMITY, RIGHT CLINICAL INFORMATION: Right lower extremity pain and swelling COMPARISON: None TECHNIQUE: Ultrasound of the deep veins is performed from the hip to the calf with compression sonography and color and pulse Doppler assessment. Spectral analysis with color-flow imaging is performed. FINDINGS: There is normal venous compression and respiratory variation and augmented flow. The visualized common femoral vein, superficial femoral vein, profunda femoral vein, popliteal vein, and the trifurcation region shows no evidence of deep venous thrombosis. There is no significant popliteal fossa cyst. The contralateral left femoral vein appears normal If the patient's symptoms persist, followup ultrasound in 5 days 7 days might be of value to exclude proximal propagation from a non-visualized calf vein. US/US venous duplex LE RT IMPRESSION: No DVT demonstrated in the right lower extremity.
[2022-04-17 15:25] VITALS: BP 142/64; PULSE 75; RESP 18; TEMP 36.8; O2SAT 96; BMI 33.5
--- NOTE | 2022-04-17 18:18 | ED_ITS ---
HPI - General Adult General Chief complaint: General Medical Stated complaint: right leg swollen and red Time Seen by Provider: 04/17/22 17:07 Source: patient Mode of arrival: ambulatory History of Present Illness HPI narrative: 67-year-old female with a past medical history of anxiety, dementia, CVA, diabetic neuropathy, HLD, HTN, insomnia, diabetes, osteoarthritis, thyroid disease, presenting to the ED complaining of persistent right lower extremity swelling, erythema, warmth and pain x1.5 weeks. Reports initially evaluated in the ED on 04/07 for similar symptoms, had negative venous duplex ultrasound discharged on Keflex, had repeat ultrasound on 04/10 with PCP which was also negative. Finished Keflex with minimal improvement. Denies trauma, injury/fall, fever, numbness/tingling, SOB/CP Onset (ago): week(s) Location: lower extremity Severity: moderate Related Data Home Medications Medication Instructions Recorded Confirmed clonazepam 1 mg tablet 1 mg PO BEDTIME 09/06/20 04/10/22 dorzolamide 22.3 mg-timolol 6.8 1 drp ophthalmic (eye) BID 09/27/20 04/10/22 mg/mL eye drops quetiapine 25 mg tablet 75 mg PO BEDTIME 09/27/20 04/10/22 melatonin 3 mg tablet 6 mg PO BEDTIME PRN 05/08/21 04/10/22 netarsudil 0.02 % eye drops 1 drp ophthalmic (eye) BEDTIME 07/09/21 04/10/22 (Rhopressa) lifitegrast 5 % eye drops in a 1 drp ophthalmic (eye) BID 07/13/21 04/10/22 dropperette (Xiidra) insulin pump cart,cont inf,BT #5 ea 01/07/22 04/10/22 (Omnipod Dash Pods (Gen 4)) latanoprost 0.005 % eye drops 1 drp ophthalmic (eye) BEDTIME 01/07/22 04/10/22 mirtazapine 30 mg tablet 30 mg PO QPM 01/07/22 04/10/22 erenumab-aooe 140 mg/mL 140 mg subcut 01/21/22 04/10/22 subcutaneous auto-injector (Aimovig Autoinjector) galcanezumab-gnlm 120 mg/mL 120 mg subcut 03/15/22 04/10/22 subcutaneous pen injector (Emgality Pen) Previous Rx's Medication Instructions Recorded docusate sodium 50 mg capsule 100 mg PO BID 30 days #120 caps 07/19/20 (Colace Clear) benzonatate 100 mg capsule 100 mg PO TID PRN cough 10 days 10/25/20 #30 caps diaper,brief,adult,disposable #160 ea 04/13/21 (Overnight Underwear Large) miscellaneous medical supply See Rx Instructions miscellaneous 04/13/21 .COMPLEX #3 ea Omnipod Classic Pods (Gen 3) 1 ea subcut Q3D 30 days #10 ea 04/17/21 (insulin pump cartridge) blood sugar diagnostic (FreeStyle #150 ea 04/19/21 Lite Strips) betamethasone dipropionate 0.05 % 1 appl topical DAILY #15 grams 06/08/21 topical cream donepezil 10 mg tablet 10 mg PO BEDTIME #90 tabs 06/24/21 oxybutynin chloride 10 mg 10 mg PO DAILY 30 days #90 tabs 07/30/21 tablet,extended release 24 hr fluticasone propionate 50 2 spray intranasal DAILY PRN for 10/17/21 mcg/actuation nasal congestion #48 mL spray,suspension insulin pump cartridge (Omnipod #5 ea 10/29/21 Dash Insulin Pod) pantoprazole 40 mg tablet,delayed 40 mg PO BID #180 tabs 11/22/21 release bisacodyl 5 mg tablet,delayed 10 mg PO BEDTIME #60 tabs 11/28/21 release (Laxative (bisacodyl)) scopolamine base 1 mg over 3 days 1 patch transdermal Q3D PRN for 11/28/21 transdermal patch dizziness #10 patches simethicone 180 mg capsule 180 mg PO QID #120 caps 11/28/21 aspirin 81 mg tablet,delayed 81 mg PO DAILY #90 tabs 12/05/21 release fluoxetine 20 mg capsule 20 mg PO BID #180 caps 12/05/21 rosuvastatin 40 mg tablet 40 mg PO DAILY #90 tabs 12/05/21 ADULT DIAPERS/BRIEFS #100 ea 12/18/21 PERSONAL CLEANING WIPES #100 ea 12/18/21 UNDERPADS #100 ea 12/18/21 methylcellulose (laxative) 500 mg 1,000 mg PO DAILY PRN for 12/19/21 tablet (Fiber Therapy constipation #60 tabs (methylcellulose)) magnesium oxide 400 mg (241.3 mg 400 mg PO BEDTIME #30 tabs 01/11/22 magnesium) tablet metoclopramide HCl 5 mg tablet 5 mg PO QIDACHS #120 tabs 01/11/22 (Reglan) plecanatide 3 mg tablet (Trulance) 3 mg PO DAILY #30 tabs 01/11/22 insulin lispro 100 unit/mL 0 - 76 unit (08109.76 mL) subcut 02/05/22 subcutaneous solution (Humalog DAILY #30 mL U-100 Insulin) hydroxyzine HCl 25 mg tablet 25 mg PO TID PRN for itch #270 tabs 02/25/22 levothyroxine 125 mcg tablet 125 mcg PO QAM #90 tabs 02/27/22 gabapentin 300 mg capsule 300 mg PO TID 30 days #90 caps 03/18/22 cephalexin 500 mg capsule 500 mg PO TID 7 days #21 caps 04/07/22 nystatin 100,000 unit/gram topical 1 appl topical QID #60 grams 04/09/22 cream lactobacillus combo no.11 15 1 cap PO DAILY #14 caps 04/10/22 billion cell sprinkle capsule (Probiotic) cholecalciferol (vitamin D3) 125 125 mcg PO DAILY #90 caps 04/17/22 mcg (5,000 unit) capsule doxycycline hyclate 100 mg tablet 100 mg PO BID 10 days #20 tabs 04/17/22 Allergies Allergy/AdvReac Type Severity Reaction Status Date / Time Penicillins Allergy Intermediate RASH/HIVES Verified 04/17/22 15:25 Review of Systems Review of Systems: Constitutional: No Fever, No Chills ENT/Mouth: No Ear Pain, No Nasal Congestion, No sore throat, No Rhinorrhea, No Swallowing Difficulty Cardiovascular: No Chest Pain, No SOB Respiratory: No Cough, No Sputum, No Wheezing Gastrointestinal: No Nausea, No Vomiting, No Diarrhea, No Constipation, No Abdominal pain Genitourinary: No Dysuria, No Urinary Frequency, No Hematuria, No Urinary Incontinence/retention, No Urgency, No Flank Pain Musculoskeletal: + joint pain, No Myalgias, + Joint Swelling Skin: + Skin Lesions, No rash Neuro: No Weakness, No Numbness, No Paresthesias Yes all other systems are reviewed and are negative PMFSH Past Medical History Attestation statement: The following information was validated with the patient. 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 Lumbar spondylosis Migraine Obesity (BMI 30-39.9) Orthostatic hypotension Osteoarthritis Pain of right thumb Pure hypercholesterolemia Thyroid disease Type 2 diabetes mellitus with diabetic polyneuropathy Urinary incontinence in female Urinary tract infection with pyuria UTI (urinary tract infection) Vitamin D deficiency Surgical History History of carpal tunnel release History of esophagogastroduodenoscopy (EGD) History of pubovaginal sling Hx of cholecystectomy Hx of colonoscopy Hx of cystoscopy Hx of eye surgery Hx of hysterectomy Family History Family History Father Diabetes Mother Heart problem Brother Diabetes Social History Social History Housing: Apartment Are you a primary director of primary care to a significant other at home: No Do you presently have visiting nurse or other home services: Yes Alcohol intake: never Patient Tobacco Use Status: Never used Tobacco Second Hand Smoke Exposure: No Advance Directives: No Advance Directives Information Provided: No service: No Current occupational status: disabled Gender identity: Female Cognitive needs: No Hearing needs: No Vision needs: Yes Physical Exam ED Vital Signs: Vital Signs - 24 hr 04/17/22 15:25 Temperature 98.2 F Pulse Rate 75 Respiratory Rate 18 Blood Pressure 142/64 H Pulse Oximetry 96 Oxygen Delivery Method Room Air BMI result Body Mass Index 33.5 Const General: cooperative, healthy appearing and no acute distress Orientation/consciousness: patient oriented x3 Limitations: no limitations HENMT Head: Yes normal to inspection and Yes atraumatic Ears: hearing grossly normal bilaterally General nose exam: Normal external nose present Face and sinus: Yes normal facial exam Eyes General: appearance normal, both eyes and all related structures EOM: EOMs intact bilaterally Neck Neck: Yes normal visual inspection and Yes no meningeal signs Resp Effort & Inspection: normal respiratory effort and no respiratory distress Auscultation: clear to auscultation bilaterally Cardio Rate: regular rate Heart sounds: S1 normal heart sound present and S2 normal heart sound present Peripheral pulses: dorsalis pedis present Skin Rashes: no rashes Wounds: no wounds Neuro General: patient oriented x3, tone normal and no meningeal signs Gait exam (Neuro): Normal gait present Extrem Other: Please refer to imaged above. RLE with 3+ pitting edema, shiny, mildly erythematous and warm to palpation. + calf tenderness. NV intact. mild limited ROM to ankle 2/2 pain/swelling Course Course Course Narrative: -chronic leukopenia, labs otherwise unremarkable/at patient's baseline. Lactic acid negative. -BNP 20 US venous duplex LE RT IMPRESSION: No DVT demonstrated in the right lower extremity. >> concern for persistent cellulitis. Will discharge on doxycycline. results discussed with patient and daughter including worrisome signs and symptoms and strict return precautions and need close follow-up with PCP which she has an appointment tomorrow Medical Decision Making MDM Narrative Medical decision making narrative: 67-year-old female with a past medical history of anxiety, dementia, CVA, diabetic neuropathy, HLD, HTN, insomnia, diabetes, osteoarthritis, thyroid disease, presenting to the ED complaining of persistent right lower extremity swelling, erythema, warmth and pain x1.5 weeks. On exam vital signs stable, afebrile, NAD/nontoxic-appearing, please refer to physical exam/images above. Concern for persistent cellulitis vs DVT. lower suspicion for CHF. No appreciable arterial compromise. Low suspicion for septic joint/arthritis Plan: Repeat venous duplex ultrasound, labs Medical Records Medical records reviewed: Yes I reviewed the patient's medical records. Lab Data Lab results reviewed: Yes I reviewed the patient's lab results. Result diagrams: 04/17/22 19:44 04/17/22 19:44 Labs: Lab Results 04/17/22 04/17/22 04/17/22 Range/Units 19:44 19:44 19:44 WBC 4.5 L (4.8-10.8) X10*3/uL RBC 4.25 (4.20-5.50) X10*6/uL Hgb 12.9 (12.0-16.0) g/dl Hct 39.0 (37.0-47.0) % MCV 91.8 (80.0-98.0) fL MCH 30.4 (27.0-33.0) pg MCHC 33.1 (31.0-35.0) g/dl RDW 13.0 (11.0-16.0) % Plt Count 136 L (160-400) X10*3/uL MPV 9.8 (9.4-12.3) fL Immature Gran % (Auto) 0.2 (0.0-0.4) % Neut % (Auto) 48.8 (45-73) % Lymph % (Auto) 41.0 H (20-40) % [place] % (Auto) 6.7 (2-11) % Eos % (Auto) 2.9 (0-4) % Baso % (Auto) 0.4 (0-2) % Lymph # (Auto) 1.9 (1.2-4.9) X10*3/uL [place] # (Auto) 0.3 (0.1-1.2) X10*3/uL Eos # (Auto) 0.1 (0.0-0.4) X10*3/uL Baso # (Auto) 0.0 (0.0-0.2) X10*3/uL Abs Immat Gran (auto) 0.01 (0.00-0.03) X10*3/uL Absolute Neuts (auto) 2.2 (2.0-8.3) x10*3/uL Absolute Nucleated RBC 0.000 (0.0-0.012) X10*3/uL Nucleated RBC % (auto) 0.0 (0.0-0.2) /100WBC Sodium 141 (135-145) mmol/L Potassium 4.4 (3.3-5.1) mmol/L Chloride 104 (96-108) mmol/L Carbon Dioxide 31 H (22-29) mmol/L Anion Gap 10 L (12-20) BUN 17 H (9-16) mg/dL Creatinine 0.85 (0.5-1.4) mg/dL Estim Creat Clear Calc 64.8 Estimated GFR > 60 Random Glucose 127 H (60-115) mg/dL Lactic Acid 0.8 (0.5-2.0) mmol/L Calcium 9.6 (8.4-10.2) mg/dL B-Natriuretic Peptide (<100) pg/mL 04/17/22 Range/Units 19:44 WBC (4.8-10.8) X10*3/uL RBC (4.20-5.50) X10*6/uL Hgb (12.0-16.0) g/dl Hct (37.0-47.0) % MCV (80.0-98.0) fL MCH (27.0-33.0) pg MCHC (31.0-35.0) g/dl RDW (11.0-16.0) % Plt Count (160-400) X10*3/uL MPV (9.4-12.3) fL Immature Gran % (Auto) (0.0-0.4) % Neut % (Auto) (45-73) % Lymph % (Auto) (20-40) % [place] % (Auto) (2-11) % Eos % (Auto) (0-4) % Baso % (Auto) (0-2) % Lymph # (Auto) (1.2-4.9) X10*3/uL [place] # (Auto) (0.1-1.2) X10*3/uL Eos # (Auto) (0.0-0.4) X10*3/uL Baso # (Auto) (0.0-0.2) X10*3/uL Abs Immat Gran (auto) (0.00-0.03) X10*3/uL Absolute Neuts (auto) (2.0-8.3) x10*3/uL Absolute Nucleated RBC (0.0-0.012) X10*3/uL Nucleated RBC % (auto) (0.0-0.2) /100WBC Sodium (135-145) mmol/L Potassium (3.3-5.1) mmol/L Chloride (96-108) mmol/L Carbon Dioxide (22-29) mmol/L Anion Gap (12-20) BUN (9-16) mg/dL Creatinine (0.5-1.4) mg/dL Estim Creat Clear Calc Estimated GFR Random Glucose (60-115) mg/dL Lactic Acid (0.5-2.0) mmol/L Calcium (8.4-10.2) mg/dL B-Natriuretic Peptide 20 (<100) pg/mL Discharge Plan Discharge Clinical Impression: Cellulitis Patient Disposition: Home, Self-Care Instructions: Cellulitis (ED) Additional Instructions: Your blood work was reassuring today. Your ultrasound was negative for blood clot. Start taking doxycycline which is an antibiotic. Avoid the sun while taking doxycycline as makes you prone to sunburn. Wear compression stockings. Elevate her leg. Follow-up with her doctor as scheduled tomorrow. Take Tylenol and Motrin for pain If symptoms persist or worsen, you have increasing swelling, fever or pain please return to the emergency department Prescriptions: New doxycycline hyclate 100 mg tablet 100 mg PO BID 10 Days Qty: 20 0RF No Action Colace Clear 50 mg capsule 100 mg PO BID 30 Days Qty: 120 3RF benzonatate 100 mg capsule 100 mg PO TID PRN (Reason: cough) 10 Days Qty: 30 0RF (DME) Overnight Underwear Large Misc See Rx Instructions .ROUTE .MEDSUPPLY Qty: 160 12RF Rx Instructions: As directed PULL UPS miscellaneous medical supply Misc See Rx Instructions miscellaneous .COMPLEX Qty: 3 12RF Rx Instructions: Wipes miscellaneous; 100 wipebox/ 3 boxes Omnipod Classic Pods (Gen 3) Cartridge 1 ea subcut Q3D 30 Days Qty: 10 6RF (DME) FreeStyle Lite Strips Strip See Rx Instructions .MEDSUPPLY Qty: 150 6RF Rx Instructions: 5 times a day betamethasone dipropionate 0.05 % cream 1 appl topical DAILY Qty: 15 0RF Rx Instructions: APPLY TO AFFECTED AREA ONCE A DAY donepezil 10 mg tablet 10 mg PO BEDTIME Qty: 90 2RF oxybutynin chloride 10 mg tablet extended release 24hr 10 mg PO DAILY 30 Days Qty: 90 3RF fluticasone propionate 50 mcg/actuation spray,suspension 2 spray intranasal DAILY PRN (Reason: for congestion) Qty: 48 1RF (DME) Omnipod Dash Pods (Gen 4) Cartridge See Rx Instructions .ROUTE .MEDSUPPLY Qty: 5 11RF Rx Instructions: As directed every 3 days pantoprazole 40 mg tablet,delayed release (DR/EC) 40 mg PO BID Qty: 180 2RF simethicone 180 mg capsule 180 mg PO QID Qty: 120 5RF bisacodyl [Laxative (bisacodyl)] 5 mg tablet,delayed release (DR/EC) 10 mg PO BEDTIME Qty: 60 6RF scopolamine base 1 mg over 3 days patch 3 day 1 patch transdermal Q3D PRN (Reason: for dizziness) Qty: 10 0RF fluoxetine 20 mg capsule 20 mg PO BID Qty: 180 0RF rosuvastatin 40 mg tablet 40 mg PO DAILY Qty: 90 0RF aspirin 81 mg tablet,delayed release (DR/EC) 81 mg PO DAILY Qty: 90 5RF (DME) UNDERPADS 30 x 36 pad See Rx Instructions .Route .MEDSUPPLY Qty: 100 12RF Rx Instructions: As directed (DME) PERSONAL CLEANING WIPES See Rx Instructions .Route .MEDSUPPLY Qty: 100 12RF Rx Instructions: As directed (DME) ADULT DIAPERS/BRIEFS LARGE See Rx Instructions .Route .MEDSUPPLY Qty: 100 12RF Rx Instructions: As directed Fiber Therapy (m-cellulose) 500 mg tablet 1,000 mg PO DAILY PRN (Reason: for constipation) Qty: 60 6RF hydroxyzine HCl 25 mg tablet 25 mg PO TID PRN (Reason: for itch) Qty: 270 1RF levothyroxine 125 mcg tablet 125 mcg PO QAM Qty: 90 0RF gabapentin 300 mg capsule 300 mg PO TID 30 Days Qty: 90 1RF nystatin 100,000 unit/gram cream 1 appl topical QID Qty: 60 2RF cholecalciferol (vitamin D3) 125 mcg (5,000 unit) capsule 125 mcg PO DAILY Qty: 90 1RF cephalexin 500 mg capsule 500 mg PO TID 7 Days Qty: 21 0RF dorzolamide-timolol 22.3-6.8 mg/mL drops 1 drp ophthalmic (eye) BID quetiapine 25 mg tablet 75 mg PO BEDTIME melatonin 3 mg tablet 6 mg PO BEDTIME PRN Probiotic 15 billion cell capsule, sprinkle 1 cap PO DAILY Qty: 14 0RF Rx Instructions: do not crush/chew/cut; swallow whole OR may open and sprinkle in cold drink/f ood clonazepam 1 mg tablet 1 mg PO BEDTIME Xiidra 5 % dropperette 1 drp ophthalmic (eye) BID Rx Instructions: administer approximately 12 hours apart Rhopressa 0.02 % drops 1 drp ophthalmic (eye) BEDTIME Emgality Pen 120 mg/mL pen injector 120 mg subcut latanoprost 0.005 % drops 1 drp ophthalmic (eye) BEDTIME mirtazapine 30 mg tablet 30 mg PO QPM (DME) Omnipod Dash Pods (Gen 4) Cartridge See Rx Instructions subcut Q3D Qty: 5 Rx Instructions: As directed Trulance 3 mg tablet 3 mg PO DAILY Qty: 30 6RF magnesium oxide 400 mg (241.3 mg magnesium) tablet 400 mg PO BEDTIME Qty: 30 6RF metoclopramide HCl [Reglan] 5 mg tablet 5 mg PO QIDACHS Qty: 120 6RF Rx Instructions: Prescriber aware of seroquel and prozac use and is monitoring, please dispense insulin lispro [Humalog U-100 Insulin] 100 unit/mL solution 0 - 76 unit subcut DAILY Qty: 30 4RF Aimovig Autoinjector 140 mg/mL auto-injector 140 mg subcut Referrals: Elijah Hunter MD [Primary Care Provider] - 1 day Print Language: [place]izean
[2022-04-17 19:49] LABS: MANUAL DIFF FLAG NO
[2022-04-17 20:10] LABS: Lactic Acid 0.8 mmol/L (0.5-2.0)
[2022-04-17 20:12] LABS: Anion Gap 10 (12-20); Blood Urea Nitrogen 17 mg/dL (9-16); Calcium 9.6 mg/dL (8.4-10.2); Carbon Dioxide 31 mmol/L (22-29); Chloride 104 mmol/L (96-108); Creatinine Clr Calc Pharmacy 64.8; Estimated Glomerular Filt Rate > 60; Glucose Random 127 mg/dL (60-115); Potassium 4.4 mmol/L (3.3-5.1); Sodium 141 mmol/L (135-145)
[2022-04-17 20:13] LABS: Basophils Percent Auto 0.4 % (0-2); Eosinophils Absolute Auto 0.1 X10*3/uL (0.0-0.4); Eosinophils Percent Auto 2.9 % (0-4); Hemoglobin 12.9 g/dl (12.0-16.0); Imm Gran Abs Auto 0.01 X10*3/uL (0.00-0.03); Imm Gran Pct Auto 0.2 % (0.0-0.4); Lymphocytes Absolute Auto 1.9 X10*3/uL (1.2-4.9); Mean Corpuscular HGB Conc 33.1 g/dl (31.0-35.0); Mean Corpuscular Hemoglobin 30.4 pg (27.0-33.0); Mean Corpuscular Volume 91.8 fL (80.0-98.0); Mean Platelet Volume 9.8 fL (9.4-12.3); Monocytes Absolute Auto 0.3 X10*3/uL (0.1-1.2); Monocytes Percent Auto 6.7 % (2-11); Neutrophils Absolute Auto 2.2 x10*3/uL (2.0-8.3); Neutrophils Percent Auto 48.8 % (45-73); Platelet Count 136 X10*3/uL (160-400); Red Blood Count 4.25 X10*6/uL (4.20-5.50); White Blood Count 4.5 X10*3/uL (4.8-10.8)
[2022-04-17 20:20] LABS: B Type Natriuretic Peptide 20 pg/mL (<100)
== END 2022-04-17 21:21 | disposition home or self-care (01) ==
PROVIDERS: Physician Assistant; Emergency Provider Internal Medicine; PCP Internal Medicine
DX: L03.115 Cellulitis of right lower limb (principal); M79.604 Pain in right leg; R60.0 Localized edema; I10 Essential (primary) hypertension; E11.9 Type 2 diabetes mellitus without 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s; Z79.4 Long term (current) use of insulin
CPT/HCPCS: 36415; 80048; 83605; 83880; 85025; 87040; 93971; 99283; 99284

== ENCOUNTER 2022-04-18 11:20 | Outpatient (REF) | payer OTHER, SELFPAY ==
--- NOTE | ~2022-04-18 | XR_ITS ---
EXAMINATION: RIGHT TIBIA AND FIBULA AND RIGHT ANKLE CLINICAL INFORMATION: Right leg pain. COMPARISON: None TECHNIQUE: 2 views right tibia and fibula and 3 views right ankle. FINDINGS: Right tibia and fibula: There is no visible acute fracture or bony abnormality. There is atherosclerotic calcification of the anterior tibial artery and soft tissue calcification along the anterior lower leg. Right ankle: The ankle mortise and subtalar joints are normal. No visible acute fracture or dislocation seen. There is a moderate size calcaneal heel and retrocalcaneal enthesophytes. The soft tissues are normal. XR/XR tibia fibula RT 2V IMPRESSION: Unremarkable right tibia and fibula exam. However there is soft tissue subcutaneous calcification as well as arterial calcification. Moderate size calcaneal heel and retrocalcaneal enthesophytes but no acute fracture.
--- NOTE | ~2022-04-18 | XR_ITS ---
EXAMINATION: RIGHT TIBIA AND FIBULA AND RIGHT ANKLE CLINICAL INFORMATION: Right leg pain. COMPARISON: None TECHNIQUE: 2 views right tibia and fibula and 3 views right ankle. FINDINGS: Right tibia and fibula: There is no visible acute fracture or bony abnormality. There is atherosclerotic calcification of the anterior tibial artery and soft tissue calcification along the anterior lower leg. Right ankle: The ankle mortise and subtalar joints are normal. No visible acute fracture or dislocation seen. There is a moderate size calcaneal heel and retrocalcaneal enthesophytes. The soft tissues are normal. XR/XR ankle RT 2V IMPRESSION: Unremarkable right tibia and fibula exam. However there is soft tissue subcutaneous calcification as well as arterial calcification. Moderate size calcaneal heel and retrocalcaneal enthesophytes but no acute fracture.
== END 2022-04-18 11:21 | disposition home or self-care (01) ==
LOC: HO.XRAY 11:20
PROVIDERS: PCP Internal Medicine; Visit Provider Physician Assistant
DX: M25.471 Effusion, right ankle (principal); M79.89 Other specified soft tissue disorders
CPT/HCPCS: 73590; 73600

== ENCOUNTER → 2022-05-07 13:07 | Outpatient (BNVA) | payer OTHER, SELFPAY | PROVIDERS: PCP Internal Medicine; Visit Provider Registered Nurse Diabetes Educator | DX: E11.65 Type 2 diabetes mellitus with hyperglycemia (principal); Z46.81 Encounter for fitting and adjustment of insulin pump; Z79.4 Long term (current) use of insulin | CPT/HCPCS: 99211 ==

== ENCOUNTER 2022-05-21 10:00 | Outpatient (RCR) | payer OTHER, SELFPAY ==
[2022-04-09 06:56] VITALS: BP 130/70; PULSE 76; O2SAT 94
== END 2022-06-25 14:44 | disposition home or self-care (01) ==
LOC: HO.PTWFD 10:00
PROVIDERS: PCP Internal Medicine; Visit Provider Anesthesiology
DX: S93.402D Sprain of unspecified ligament of left ankle, subsequent encounter (principal)
CPT/HCPCS: 97110; 97161

== ENCOUNTER → 2022-06-04 11:17 | Outpatient (BNVA) | payer OTHER, SELFPAY | PROVIDERS: PCP Internal Medicine; Visit Provider Registered Nurse Diabetes Educator | DX: E11.9 Type 2 diabetes mellitus without 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s (principal); Z46.81 Encounter for fitting and adjustment of insulin pump; Z79.4 Long term (current) use of insulin | CPT/HCPCS: 99211 ==

== ENCOUNTER → 2022-06-21 10:45 | Outpatient (BNVA) | payer OTHER, SELFPAY | PROVIDERS: PCP Internal Medicine; Visit Provider Registered Nurse Diabetes Educator | DX: E11.42 Type 2 diabetes mellitus with diabetic polyneuropathy (principal) | CPT/HCPCS: 99211 ==

== ENCOUNTER → 2022-07-25 15:13 | Outpatient (BNVA) | payer OTHER, SELFPAY | PROVIDERS: PCP Internal Medicine; Visit Provider Internal Medicine Endocrinology, Diabetes & Metabolism | DX: E11.65 Type 2 diabetes mellitus with hyperglycemia (principal); Z96.41 Presence of insulin pump (external) (internal); Z79.4 Long term (current) use of insulin | CPT/HCPCS: 82947; 83036; 99212 ==

== ENCOUNTER 2022-08-01 09:09 | Outpatient (REF) | payer OTHER, SELFPAY ==
[2022-08-01 09:33] LABS: MANUAL DIFF FLAG NO
[2022-08-01 10:48] LABS: Basophils Percent Auto 0.9 % (0-2); Eosinophils Absolute Auto 0.1 X10*3/uL (0.0-0.4); Eosinophils Percent Auto 3.1 % (0-4); Hematocrit 38.4 % (37.0-47.0); Hemoglobin 12.4 g/dl (12.0-16.0); Imm Gran Abs Auto 0.01 X10*3/uL (0.00-0.03); Imm Gran Pct Auto 0.2 % (0.0-0.4); Lymphocytes Absolute Auto 1.5 X10*3/uL (1.2-4.9); Lymphocytes Percent Auto 33.9 % (20-40); Mean Corpuscular HGB Conc 32.3 g/dl (31.0-35.0); Mean Corpuscular Hemoglobin 29.2 pg (27.0-33.0); Mean Corpuscular Volume 90.6 fL (80.0-98.0); Monocytes Absolute Auto 0.3 X10*3/uL (0.1-1.2); Neutrophils Absolute Auto 2.5 x10*3/uL (2.0-8.3); Neutrophils Percent Auto 55.9 % (45-73); Platelet Count 133 X10*3/uL (160-400); Red Blood Count 4.24 X10*6/uL (4.20-5.50); Red Cell Distribution Width 13.2 % (11.0-16.0); White Blood Count 4.5 X10*3/uL (4.8-10.8)
[2022-08-01 10:53] LABS: Estimated Average Glucose 174 mg/dL; Hemoglobin A1c % 7.7 %
[2022-08-01 11:13] LABS: Appearance Urine Clear; Color Urine Yellow; Glucose Urine UA Negative (Negative); Leukocyte Esterase Urine Negative (Negative); Nitrite Urine Negative (Negative); PH 5.5 (5.0-9.0); Urine Blood Negative (Negative); Urine Ketones Negative (Negative); Urine Protein Negative (Neg-Trace)
[2022-08-01 11:22] LABS: Alanine Aminotransferase 25 U/L (0-31); Albumin Level 4.2 g/dL (3.5-5.0); Alkaline Phosphatase 133 U/L (39-117); Anion Gap 15 (12-20); Aspartate Amino Transferase 35 U/L (5-31); Bilirubin Total 0.3 mg/dL (0.0-1.0); Blood Urea Nitrogen 18 mg/dL (9-16); Calcium 9.6 mg/dL (8.4-10.2); Carbon Dioxide 29 mmol/L (22-29); Chloride 104 mmol/L (96-108); Cholesterol 127 mg/dL; Estimated Glomerular Filt Rate > 60; Glucose Fasting 127 mg/dL (60-99); HDL Cholesterol 51 mg/dL; LDL Cholesterol Calculated 51 mg/dl; Potassium 4.7 mmol/L (3.3-5.1); Sodium 143 mmol/L (135-145); Total Protein 7.3 g/dL (6.5-8.0); Triglycerides 126 mg/dL
[2022-08-01 11:44] LABS: Creatinine Urine 48.27 mg/dL
[2022-08-01 11:49] LABS: Free T4 (Free Thyroxine) 0.98 ng/dL (0.71-1.85); Thyroid Stimulating Hormone 2.34 uIU/mL (0.32-4.0); Vitamin D 25-OH Total 37.9 ng/mL (>30)
== END 2022-08-01 09:10 | disposition home or self-care (01) ==
LOC: HO.LAB 09:09
PROVIDERS: PCP Internal Medicine; Visit Provider Internal Medicine
DX: E55.9 Vitamin D deficiency, unspecified (principal); I10 Essential (primary) hypertension; E03.9 Hypothyroidism, unspecified; E78.00 Pure hypercholesterolemia, unspecified; E11.9 Type 2 diabetes mellitus without 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s
CPT/HCPCS: 36415; 80053; 80061; 81003; 82043; 82306; 83036; 84439; 84443; 85025

== ENCOUNTER → 2022-08-02 11:07 | Outpatient (BNVA) | payer OTHER, SELFPAY | PROVIDERS: PCP Internal Medicine; Visit Provider Registered Nurse Diabetes Educator | DX: E11.9 Type 2 diabetes mellitus without 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s (principal); Z79.85 Long-term (current) use of injectable non-insulin antidiabetic drugs | CPT/HCPCS: 99211 ==

== ENCOUNTER 2022-08-23 11:11 | Outpatient (REF) | payer OTHER, SELFPAY | END 2022-08-23 11:12 | disposition home or self-care (01) | LOC: HO.LAB 11:11 | PROVIDERS: PCP Internal Medicine; Visit Provider Urology | DX: N39.0 Urinary tract infection, site not specified (principal); N39.41 Urge incontinence; N31.9 Neuromuscular dysfunction of bladder, unspecified; Z86.73 Personal history of transient ischemic attack (TIA), and cerebral infarction without residual deficits | CPT/HCPCS: 51798; 87086; 99212 ==

== ENCOUNTER → 2022-08-29 09:51 | Outpatient (BNVA) | payer OTHER, SELFPAY | PROVIDERS: PCP Internal Medicine; Visit Provider Nurse Practitioner | DX: Z01.818 Encounter for other preprocedural examination (principal); K30 Functional dyspepsia; K21.9 Gastro-esophageal reflux disease without esophagitis; K59.04 Chronic idiopathic constipation | CPT/HCPCS: 99212 ==

== ENCOUNTER → 2022-08-30 11:29 | Outpatient (BNVA) | payer OTHER, SELFPAY | PROVIDERS: PCP Internal Medicine; Visit Provider Registered Nurse Diabetes Educator | DX: Z46.81 Encounter for fitting and adjustment of insulin pump (principal); E11.42 Type 2 diabetes mellitus with diabetic polyneuropathy; Z79.4 Long term (current) use of insulin | CPT/HCPCS: 99211 ==

== ENCOUNTER → 2022-09-13 11:49 | Outpatient (BNVA) | payer OTHER, SELFPAY | PROVIDERS: PCP Internal Medicine; Visit Provider Nurse Practitioner | DX: K59.04 Chronic idiopathic constipation (principal); K30 Functional dyspepsia; K21.9 Gastro-esophageal reflux disease without esophagitis; Z79.899 Other long term (current) drug therapy | CPT/HCPCS: 99212 ==

== ENCOUNTER 2022-09-30 12:07 | Outpatient (REF) | payer OTHER, SELFPAY ==
--- NOTE | ~2022-09-30 | US_ITS ---
EXAMINATION: US RETROPERITONEAL LIMITED (RENAL ONLY) CLINICAL INFORMATION: Urge incontinence. COMPARISON: Ultrasound abdomen complete with liver elastography 02/28/2021. X-ray abdomen KUB 12/09/2019. CT abdomen and pelvis 10/20/2019. Ultrasound abdomen complete 08/11/2019. TECHNIQUE: Real-time imaging of the kidneys. FINDINGS: RIGHT KIDNEY: 12.4 x 3.7 x 6.2 cm (SAG x AP x TRV). The kidney is normal in size, contour, and echogenicity. Renal cortical thickness is normal. No calculi or focal parenchymal lesions. No hydronephrosis. LEFT KIDNEY: 12.0 x 3.8 x 4.7 cm (SAG x AP x TRV). The kidney is normal in size, contour, and echogenicity. Renal cortical thickness is normal. No calculi or focal parenchymal lesions. No hydronephrosis. US/US renal BI IMPRESSION: Normal renal ultrasound.
== END 2022-09-30 12:08 | disposition home or self-care (01) ==
LOC: HO.US 12:07
PROVIDERS: Visit Provider Urology
DX: N39.41 Urge incontinence (principal); N31.9 Neuromuscular dysfunction of bladder, unspecified
CPT/HCPCS: 76775

== ENCOUNTER → 2022-10-01 12:39 | Outpatient (BNVA) | payer OTHER, SELFPAY | PROVIDERS: PCP Internal Medicine; Visit Provider Registered Nurse Diabetes Educator | DX: E11.42 Type 2 diabetes mellitus with diabetic polyneuropathy (principal); Z79.4 Long term (current) use of insulin; Z46.81 Encounter for fitting and adjustment of insulin pump | CPT/HCPCS: 99211 ==

== ENCOUNTER 2022-10-08 07:01 | Day surgery (SDC) | payer OTHER, SELFPAY ==
--- NOTE | 2022-10-04 09:28 | P.CONAN_ITS ---
Documented by User: Jennifer Ervin NP 10/04/22 09:29 HPI - Anesthesia Eval Consult details Narrative: 67yo F for Cystoscopy Botox Injection s/p same 02/2021 with [facility] Active Problems Active Problems: All Active Problems (Updated 09/02/22 @ 13:01 by REKHA Chang) Pre-op examination (Acute) History of stroke (Acute) Urge incontinence of urine (Acute) Uninhibited neurogenic bladder (Acute) Colon cancer screening (Acute) Annual physical exam (Acute) Right ankle swelling (Acute) Cellulitis of right lower leg (Acute) Swelling of right lower extremity (Acute) Left leg pain (Acute) Diabetes mellitus (Acute) Left ankle sprain (Acute) Ankle fracture, left (Acute) Goiter (Acute) Chronic pain syndrome (Acute) Dementia 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 (Acute) Diabetic neuropathy (Acute) Delayed gastric emptying (Acute) UTI (urinary tract infection) (Acute) Annual physical exam (Acute) Insomnia (Acute) Glaucoma (Acute) Migraine (Acute) Acquired hypothyroidism (Acute) Diffuse idiopathic skeletal hyperostosis of cervical spine (Acute) Aortic valve calcification (Acute) Chronic pain of left ankle (Acute) Hearing impairment (Acute) Chronic idiopathic constipation (Acute) GERD (gastroesophageal reflux disease) (Acute) Rectocele (Acute) Hemorrhoids (Acute) Charmaine albicans infection (Acute) QT prolongation (Acute) Right sided abdominal pain (Acute) Simple ovarian cyst (Acute) Diabetic polyneuropathy associated with type 2 diabetes mellitus (Acute) Diabetes type 2, uncontrolled (Acute) Overactive bladder (Acute) Localized swelling, mass and lump, neck (Acute) Urinary tract infection with pyuria (Acute) Elevated LFTs (Acute) Elevated liver enzymes (Acute) Depression (Acute) Anxiety (Acute) Urinary incontinence in female (Acute) Dementia (Acute) Osteoarthritis (Acute) Lumbar spondylosis (Acute) Pure hypercholesterolemia (Acute) Type 2 diabetes mellitus with diabetic polyneuropathy (Acute) Pain of right thumb (Acute) Allergic rhinitis (Acute) Hypertension (Acute) Obesity (BMI 30-39.9) (Acute) Vitamin D deficiency (Acute) Dyslipidemia (Acute) Diabetic 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 type 2 diabetes mellitus (Acute) longterm (current) use of insulin (Acute) Dizziness and giddiness (Acute) Orthostatic hypotension (Acute) Past Medical History Medical History (Updated 10/08/22 @ 07:58 by Tiffanie Arthur RN) Acquired hypothyroidism Allergic rhinitis Anxiety Blind left eye Chronic pain syndrome COVID-19 vaccine administered CVA (cerebral vascular accident) Dementia 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 Depression Diabetic neuropathy Diabetic 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 type 2 diabetes mellitus Dizziness and giddiness Dyslipidemia Elevated LFTs Elevated liver enzymes Glaucoma Hearing impairment Hypertension Insomnia Localized swelling, mass and lump, neck 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 Lumbar spondylosis Migraine Obesity (BMI 30-39.9) Orthostatic hypotension Osteoarthritis Pain of right thumb Pure hypercholesterolemia Type 2 diabetes mellitus with diabetic polyneuropathy Urinary incontinence in female Urinary tract infection with pyuria Vitamin D deficiency Family History Family History Father Diabetes Mother Heart problem Brother Diabetes Surgical History Surgical History History of carpal tunnel release History of esophagogastroduodenoscopy (EGD) History of pubovaginal sling Hx of cholecystectomy Hx of colonoscopy Hx of cystoscopy Hx of eye surgery Hx of hysterectomy Social History Social History Housing: Apartment Are you a primary dialysis patient care technician to a significant other at home: No Do you presently have visiting nurse or other home services: Yes Alcohol intake: never Patient Tobacco Use Status: Never used Tobacco e-Cigarette/Vaping Use: Never Used Second Hand Smoke Exposure: No Use of substances other than those prescribed or required for medical reasons: No Are you DNR?: No Advance Directives: No Advance Directives Information Provided: Yes service: No Current occupational status: disabled Gender identity: Female Cognitive needs: Yes Hearing needs: No Vision needs: Yes Meds Allergies Allergy/AdvReac Type Severity Reaction Status Date / Time Penicillins Allergy Intermediate RASH/HIVES Verified 08/29/22 10:11 Home Medications Medication Instructions Recorded Confirmed Last Taken Type dorzolamide 22.3 mg-timolol 6.8 1 drp ophthalmic (eye) BID 09/27/20 10/08/22 Unknown History mg/mL eye drops quetiapine 25 mg tablet 75 mg PO BEDTIME 09/27/20 10/08/22 Unknown History melatonin 3 mg tablet 6 mg PO BEDTIME PRN Insomnia 05/08/21 10/08/22 Unknown History netarsudil 0.02 % eye drops 1 drp ophthalmic (eye) BEDTIME 07/09/21 10/08/22 Unknown History (Rhopressa) lifitegrast 5 % eye drops in a 1 drp ophthalmic (eye) BID 07/13/21 10/08/22 Unknown History dropperette (Xiidra) mirtazapine 30 mg tablet 30 mg PO QPM 01/07/22 10/08/22 Unknown History galcanezumab-gnlm 120 mg/mL 120 mg subcut QMONTH 03/15/22 10/08/22 Unknown History subcutaneous pen injector (Emgality Pen) clonazepam 0.5 mg tablet 1 mg PO BEDTIME 08/29/22 10/08/22 Unknown History gabapentin 300 mg capsule 300 mg PO BID 10/08/22 10/08/22 Unknown History lifitegrast 5 % eye drops in a 1 drp ophthalmic (eye) BID 10/08/22 10/08/22 Unknown History dropperette (Xiidra) midodrine 10 mg tablet 10 mg PO TID 10/08/22 10/08/22 Unknown History mirabegron 50 mg tablet,extended 100 mg PO DAILY 10/08/22 10/08/22 Unknown History release 24 hr (Myrbetriq) Exam Exam Date and Time: October 04, [id number] Pertinent Lab Results Pertinent Lab Results: Laboratory Tests 08/01/22 08/01/22 09:32 09:32 WBC 4.5 L Hgb 12.4 Hct 38.4 Plt Count 133 L Sodium 143 Potassium 4.7 Chloride 104 Carbon Dioxide 29 BUN 18 H Creatinine 0.82 Narrative Narrative: ECHO 2020 Conclusions: - The left ventricular systolic function is normal.? The ? calculated ejection fraction is 66% by biplane method. ? - There is mild calcification of the aortic valve. ? - No obvious valvular pathology seen on this study.?? Assessment and Plan Assessment Anesthesia Assessment: Chart Reviewed Documented by User: Frances Myers MD 10/08/22 10:01 [facility] Past Medical History Medical History (Updated 10/08/22 @ 07:58 by Tiffanie Arthur, RN) Acquired hypothyroidism Allergic rhinitis Anxiety Blind left eye Chronic pain syndrome COVID-19 vaccine administered CVA (cerebral vascular accident) Dementia 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 Depression Diabetic neuropathy Diabetic 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 type 2 diabetes mellitus Dizziness and giddiness Dyslipidemia Elevated LFTs Elevated liver enzymes Glaucoma Hearing impairment Hypertension Insomnia Localized swelling, mass and lump, neck 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 Lumbar spondylosis Migraine Obesity (BMI 30-39.9) Orthostatic hypotension Osteoarthritis Pain of right thumb Pure hypercholesterolemia Type 2 diabetes mellitus with diabetic polyneuropathy Urinary incontinence in female Urinary tract infection with pyuria Vitamin D deficiency Family History Family History Father Diabetes Mother Heart problem Brother Diabetes Family history of problems with anesthesia: No Surgical History Surgical History History of carpal tunnel release History of esophagogastroduodenoscopy (EGD) History of pubovaginal sling Hx of cholecystectomy Hx of colonoscopy Hx of cystoscopy Hx of eye surgery Hx of hysterectomy History of Problems with Anesthesia: No Social History Social History Housing: Apartment Are you a primary dialysis patient care technician to a significant other at home: No Do you presently have visiting nurse or other home services: Yes Alcohol intake: never Patient Tobacco Use Status: Never used Tobacco e-Cigarette/Vaping Use: Never Used Second Hand Smoke Exposure: No Use of substances other than those prescribed or required for medical reasons: No Are you DNR?: No Advance Directives: No Advance Directives Information Provided: Yes service: No Current occupational status: disabled Gender identity: Female Cognitive needs: Yes Hearing needs: No Vision needs: Yes Meds Allergies Allergy/AdvReac Type Severity Reaction Status Date / Time Penicillins Allergy Intermediate RASH/HIVES Verified 08/29/22 10:11 Home Medications Medication Instructions Recorded Confirmed Last Taken Type dorzolamide 22.3 mg-timolol 6.8 1 drp ophthalmic (eye) BID 09/27/20 10/08/22 Unknown History mg/mL eye drops quetiapine 25 mg tablet 75 mg PO BEDTIME 09/27/20 10/08/22 Unknown History melatonin 3 mg tablet 6 mg PO BEDTIME PRN Insomnia 05/08/21 10/08/22 Unknown History netarsudil 0.02 % eye drops 1 drp ophthalmic (eye) BEDTIME 07/09/21 10/08/22 Unknown History (Rhopressa) lifitegrast 5 % eye drops in a 1 drp ophthalmic (eye) BID 07/13/21 10/08/22 Unknown History dropperette (Xiidra) mirtazapine 30 mg tablet 30 mg PO QPM 01/07/22 10/08/22 Unknown History galcanezumab-gnlm 120 mg/mL 120 mg subcut QMONTH 03/15/22 10/08/22 Unknown History subcutaneous pen injector (Emgality Pen) clonazepam 0.5 mg tablet 1 mg PO BEDTIME 08/29/22 10/08/22 Unknown History gabapentin 300 mg capsule 300 mg PO BID 10/08/22 10/08/22 Unknown History lifitegrast 5 % eye drops in a 1 drp ophthalmic (eye) BID 10/08/22 10/08/22 Unknown History dropperette (Xiidra) midodrine 10 mg tablet 10 mg PO TID 10/08/22 10/08/22 Unknown History mirabegron 50 mg tablet,extended 100 mg PO DAILY 10/08/22 10/08/22 Unknown History release 24 hr (Myrbetriq) Exam Airway Mallampati Class: I TM Dist: >3cm Denture: Upper and Lower Heart: rr Lungs: cta Assessment and Plan Assessment Anesthesia Assessment: Anesthesia Plan Discussed and Smoking Cess. Discussed Final Anesthetic Review Family History of Problems with Anesthesia: No History of Problems with Anesthesia: No NPO: Yes ASA Class: II Final Preanesthetic Review: No Changes in Pt Med Stat, Meds/Allgs Chart Reviewed, Consent Obtained/Reviewed and Anes Risks/Benef Reviewed Patient Risk: Low Procedure Risk: Low Anesthetic Plan Anesthetic Plan: MAC: Disposition: Standard PACU
[2022-10-08 07:05] VITALS: BMI 35.3
[2022-10-08 07:41] VITALS: BP 124/74; PULSE 90; RESP 16; TEMP 36.2; O2SAT 93
[2022-10-08] MEDS: Lactated Ringers 1,000 ML 100 ML IVCONT (07:51)
[2022-10-08 07:52] LABS: Glucose, Whole Blood 133 mg/dL (60-115)
--- NOTE | 2022-10-08 09:16 | MHC.SHP ---
Pre-Procedural Eval Section A Date of Service: 10/08/22 The patient is an INPATIENT: No The History & Physical has been completed within 30 days and I have reviewed it.: Yes Section B Chief Complaint: Urge incontinence Allergies: Allergies Allergy/AdvReac Type Severity Reaction Status Date / Time Penicillins Allergy Intermediate RASH/HIVES Verified 08/29/22 10:11 Plan I have reviewed the history and physical and performed a pertinent physical examination on my patient. No changes have occurred unless specified. OAB. Bladder Botox injection 100 units. Risks discussed included but not limited to infection, hematuria, urinary retention. Time Spent With Patient Time: Total time managing care of this patient today ____ minutes.
[2022-10-08 10:17] VITALS: BP 141/82; PULSE 87; RESP 13; TEMP 36.1; O2SAT 98
--- NOTE | 2022-10-08 10:30 | W.PM.OPN ---
Operative Note Operative Note Date of Service: 10/08/22 Narrative: PREOP DIAGNOSIS: Overactive bladder POSTOP DIAGNOSIS: Overactive bladder PROCEDURE: Cystoscopy bladder Botox injection, 100 units Surgeon: Charlie Jones MD Indications: 67 year old female with LUTS urgency, frequency and urge incontinence, failed PO anticholinergic therapy, had improvement with Botox bladder injection, here for repeat therapy. Details of procedure: The patient was brought into the operating room placed on the OR table in supine position. Levaquin 500 mg IV. IV sedation was administered. The patient was repositioned into lithotomy position, prepped and draped in the usual sterile fashion. Time-out was done per protocol. 2% lidocaine jelly was placed transurethrally. A 22 fr cystoscope was placed transurethrally into the bladder. The right and left ureteral orifices were visualized dependently, as the patient has a mild cystocele. The entire bladder was visualized. There were no suspicious bladder lesions seen. The Botox 100 units mixed with 10 mL sterile normal saline. The entire 10 mL of solution was administered, 0.5-1 mL per injection. The cystoscope was removed. 2% lidocaine urojet was passed transurethrally into the bladder. The patient tolerated the procedure well and taken to recovery in stable condition. Complications: None Drains: None
[2022-10-08 10:32] VITALS: BP 144/81; PULSE 84; RESP 13; TEMP 36.3; O2SAT 96
[2022-10-08 10:45] VITALS: BP 142/82; PULSE 84; RESP 16; O2SAT 96
[2022-10-08 10:58] VITALS: BP 137/85; PULSE 81; RESP 16; TEMP 36.3; O2SAT 96
== END 2022-10-08 11:45 | disposition home or self-care (01) ==
PROVIDERS: PCP Internal Medicine; Visit Provider Urology
PROC: 3E0K8GC Introduction of Other Therapeutic Substance into Genitourinary Tract, Via Natural or Artificial Opening Endoscopic (ICD-10-PCS; CPT 52287; principal; 2022-10-08 08:40)
DX: N39.41 Urge incontinence (principal); N32.81 Overactive bladder; N31.9 Neuromuscular dysfunction of bladder, unspecified; J30.9 Allergic rhinitis, unspecified; F03.918 Unspecified dementia, unspecified severity, with other behavioral disturbance; G89.4 Chronic pain syndrome; I10 Essential (primary) hypertension; E78.00 Pure hypercholesterolemia, unspecified; E11.42 Type 2 diabetes mellitus with diabetic polyneuropathy; E11.319 Type 2 diabetes mellitus with unspecified diabetic retinopathy without macular edema; Z79.4 Long term (current) use of insulin; Z79.51 Long term (current) use of inhaled steroids; Z79.82 Long term (current) use of aspirin; Z79.899 Other long term (current) drug therapy; Z88.0 Allergy status to penicillin; Z90.49 Acquired absence of other specified parts of digestive tract; Z98.890 Other specified postprocedural states; Z86.73 Personal history of transient ischemic attack (TIA), and cerebral infarction without residual deficits
CPT/HCPCS: 52287; 82947; J0585; J1100; J1956; J2250; J2405; J3010

== ENCOUNTER → 2022-10-24 09:41 | Outpatient (BNVA) | payer OTHER, SELFPAY | PROVIDERS: PCP Internal Medicine; Visit Provider Internal Medicine Endocrinology, Diabetes & Metabolism | DX: E11.65 Type 2 diabetes mellitus with hyperglycemia (principal); Z96.41 Presence of insulin pump (external) (internal); Z79.85 Long-term (current) use of injectable non-insulin antidiabetic drugs | CPT/HCPCS: 82947; 83036; 99212 ==

== ENCOUNTER 2022-11-07 10:55 | Outpatient (REF) | payer OTHER, SELFPAY ==
--- NOTE | ~2022-11-07 | MM_ITS ---
EXAMINATION: MM SCREENING DIGITAL BREAST TOMOSYNTHESIS, BILATERAL CLINICAL INFORMATION: Screening. Asymptomatic. The lifetime risk of breast cancer based on the Tyrer-Cuzick Model is 7%. COMPARISON: Mammography: 11/05/2021, 09/09/2020, 09/06/2019 TECHNIQUE: Digital breast tomosynthesis is performed in both the craniocaudal and mediolateral oblique views along with computer-aided detection (CAD). Synthesized 2D images are generated from the tomosynthesis. FINDINGS: There are scattered areas of fibroglandular density (ACR BI-RADS breast composition Category b). There are no significant masses, abnormal calcifications, or other abnormalities. Parenchymal pattern is similar to prior studies. There is no developing density or architectural abnormality. The axilla and skin contours are unremarkable. No significant changes. MM/MM tomosynthesis screening BI IMPRESSION: No mammographic evidence of malignancy. ASSESSMENT: BI-RADS 1: Negative RECOMMENDATION: Routine annual mammography screening. This patient's information was entered into a reminder system with a target due date for their next mammogram.
[2022-11-07 11:05] LABS: MANUAL DIFF FLAG NO
[2022-11-07 11:51] LABS: Appearance Urine Clear; Color Urine Yellow; Glucose Urine UA Negative (Negative); Leukocyte Esterase Urine Small (1+) (Negative); Nitrite Urine Negative (Negative); PH 6.5 (5.0-9.0); UMIC TRIGGER UACC YES; Urine Blood Negative (Negative); Urine Ketones Negative (Negative); Urine Protein Negative (Neg-Trace)
[2022-11-07 11:56] LABS: Basophils Percent Auto 0.5 % (0-2); Eosinophils Absolute Auto 0.1 X10*3/uL (0.0-0.4); Eosinophils Percent Auto 2.2 % (0-4); Hematocrit 36.7 % (37.0-47.0); Hemoglobin 12.4 g/dl (12.0-16.0); Imm Gran Abs Auto 0.02 X10*3/uL (0.00-0.03); Imm Gran Pct Auto 0.3 % (0.0-0.4); Lymphocytes Absolute Auto 2.7 X10*3/uL (1.2-4.9); Lymphocytes Percent Auto 47.4 % (20-40); Mean Corpuscular HGB Conc 33.8 g/dl (31.0-35.0); Mean Corpuscular Hemoglobin 30.2 pg (27.0-33.0); Mean Corpuscular Volume 89.3 fL (80.0-98.0); Monocytes Absolute Auto 0.4 X10*3/uL (0.1-1.2); Monocytes Percent Auto 7.3 % (2-11); Neutrophils Absolute Auto 2.4 x10*3/uL (2.0-8.3); Neutrophils Percent Auto 42.3 % (45-73); Platelet Count 138 X10*3/uL (160-400); Red Blood Count 4.11 X10*6/uL (4.20-5.50); Red Cell Distribution Width 13.4 % (11.0-16.0); White Blood Count 5.8 X10*3/uL (4.8-10.8)
[2022-11-07 12:00] LABS: Bacteria Urine 4+ (None Seen); Hyaline Casts Urine 0-2 /LPF (0-2); RBC Urine 0-2 /HPF (0-2); Squamous Epithelial Cell Urine >20 /HPF (0-2); UACC Culture Trigger YES
[2022-11-07 12:13] LABS: Estimated Average Glucose 131 mg/dL; Hemoglobin A1C 148.8983 umol/L; Hemoglobin A1c % 6.2 %
[2022-11-07 12:52] LABS: Alanine Aminotransferase 42 U/L (0-31); Alkaline Phosphatase 120 U/L (39-117); Anion Gap 9 (12-20); Aspartate Amino Transferase 41 U/L (5-31); Bilirubin Total 0.4 mg/dL (0.0-1.0); Blood Urea Nitrogen 20 mg/dL (9-16); Calcium 9.6 mg/dL (8.4-10.2); Carbon Dioxide 29 mmol/L (22-29); Chloride 107 mmol/L (96-108); Cholesterol 117 mg/dL; Estimated Glomerular Filt Rate > 60; Glucose Fasting 91 mg/dL (60-99); HDL Cholesterol 44 mg/dL; LDL Cholesterol Calculated 42 mg/dl; Potassium 4.3 mmol/L (3.3-5.1); Sodium 141 mmol/L (135-145); Triglycerides 156 mg/dL
[2022-11-07 12:54] LABS: Creatinine Urine 111.98 mg/dL
[2022-11-07 13:11] LABS: Vitamin D 25-OH Total 38.4 ng/mL (>30)
[2022-11-07 13:33] LABS: Vitamin B12 475 pg/mL (200-900)
== END 2022-11-07 10:56 | disposition home or self-care (01) ==
LOC: HO.MAMMO 10:55
PROVIDERS: PCP Internal Medicine; Visit Provider Internal Medicine
DX: Z12.31 Encounter for screening mammogram for malignant neoplasm of breast (principal); I10 Essential (primary) hypertension; E55.9 Vitamin D deficiency, unspecified; E78.00 Pure hypercholesterolemia, unspecified; E11.9 Type 2 diabetes mellitus without 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s; E03.9 Hypothyroidism, unspecified; E53.8 Deficiency of other specified B group vitamins; R30.0 Dysuria
CPT/HCPCS: 36415; 77063; 77067; 80053; 80061; 81001; 82043; 82306; 82607; 82746; 83036; 84439; 84443; 85025; 87086

== ENCOUNTER → 2022-11-21 13:38 | Outpatient (BNVA) | payer OTHER, SELFPAY | PROVIDERS: PCP Internal Medicine; Visit Provider Internal Medicine | DX: I95.1 Orthostatic hypotension (principal); I35.9 Nonrheumatic aortic valve disorder, unspecified | CPT/HCPCS: 93005; 99212 ==

== ENCOUNTER → 2023-02-11 08:26 | Outpatient (BNVA) | payer OTHER, SELFPAY | PROVIDERS: PCP Internal Medicine; Visit Provider Registered Nurse Diabetes Educator | DX: E11.65 Type 2 diabetes mellitus with hyperglycemia (principal); Z46.81 Encounter for fitting and adjustment of insulin pump; Z79.4 Long term (current) use of insulin | CPT/HCPCS: 82947; 83036; 99211; 99212 ==

== ENCOUNTER → 2023-03-19 09:58 | Outpatient (BNVA) | payer OTHER, SELFPAY | PROVIDERS: PCP Internal Medicine; Visit Provider Registered Nurse Diabetes Educator | DX: Z46.81 Encounter for fitting and adjustment of insulin pump (principal); E11.65 Type 2 diabetes mellitus with hyperglycemia | CPT/HCPCS: 99211 ==

== ENCOUNTER 2023-03-25 10:33 | Outpatient (REF) | payer OTHER, SELFPAY ==
[2023-03-25 11:05] LABS: MANUAL DIFF FLAG NO
[2023-03-25 11:27] LABS: Basophils Percent Auto 0.7 % (0-2); Eosinophils Absolute Auto 0.1 X10*3/uL (0.0-0.4); Eosinophils Percent Auto 2.7 % (0-4); Hematocrit 37.6 % (37.0-47.0); Hemoglobin 12.5 g/dl (12.0-16.0); Lymphocytes Absolute Auto 1.6 X10*3/uL (1.2-4.9); Lymphocytes Percent Auto 39.3 % (20-40); Mean Corpuscular HGB Conc 33.2 g/dl (31.0-35.0); Mean Corpuscular Hemoglobin 30.2 pg (27.0-33.0); Mean Corpuscular Volume 90.8 fL (80.0-98.0); Mean Platelet Volume 9.7 fL (9.4-12.3); Monocytes Absolute Auto 0.3 X10*3/uL (0.1-1.2); Monocytes Percent Auto 6.5 % (2-11); Neutrophils Percent Auto 50.8 % (45-73); Platelet Count 123 X10*3/uL (160-400); Red Blood Count 4.14 X10*6/uL (4.20-5.50); Red Cell Distribution Width 13.4 % (11.0-16.0)
[2023-03-25 11:42] LABS: Estimated Average Glucose 151 mg/dL; Hemoglobin A1c % 6.9 %
[2023-03-25 12:05] LABS: Appearance Urine Clear; Color Urine Yellow; Glucose Urine UA Negative (Negative); Leukocyte Esterase Urine Negative (Negative); Nitrite Urine Negative (Negative); PH 5.5 (5.0-9.0); Specific Gravity - Urine 1.015 (1.005-1.025); Urine Blood Negative (Negative); Urine Ketones Negative (Negative); Urine Protein Negative (Neg-Trace)
[2023-03-25 12:21] LABS: Alanine Aminotransferase 28 U/L (0-31); Albumin Level 3.9 g/dL (3.5-5.0); Alkaline Phosphatase 125 U/L (39-117); Anion Gap 11 (12-20); Aspartate Amino Transferase 36 U/L (5-31); Bilirubin Total 0.5 mg/dL (0.0-1.0); Blood Urea Nitrogen 18 mg/dL (9-16); Carbon Dioxide 27 mmol/L (22-29); Chloride 106 mmol/L (96-108); Cholesterol 115 mg/dL; Estimated Glomerular Filt Rate > 60; Glucose Fasting 146 mg/dL (60-99); HDL Cholesterol 45 mg/dL; LDL Cholesterol Calculated 46 mg/dl; Potassium 4.2 mmol/L (3.3-5.1); Sodium 140 mmol/L (135-145); Total Protein 7.3 g/dL (6.5-8.0); Triglycerides 120 mg/dL
[2023-03-25 12:29] LABS: Creatinine Urine 95.32 mg/dL; Microalbum/Creatinine Ratio Ur 16.7 ug/mg cr
[2023-03-25 12:30] LABS: Free T4 (Free Thyroxine) 1.09 ng/dL (0.71-1.85); Thyroid Stimulating Hormone 0.93 uIU/mL (0.32-4.0); Vitamin D 25-OH Total 48.6 ng/mL (>30)
== END 2023-03-25 10:34 | disposition home or self-care (01) ==
LOC: HO.LAB 10:33
PROVIDERS: PCP Internal Medicine; Visit Provider Internal Medicine
DX: I10 Essential (primary) hypertension (principal); E11.9 Type 2 diabetes mellitus without 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s; E78.00 Pure hypercholesterolemia, unspecified; R30.0 Dysuria; E55.9 Vitamin D deficiency, unspecified; E03.9 Hypothyroidism, unspecified
CPT/HCPCS: 36415; 80053; 80061; 81003; 82043; 82306; 83036; 84439; 84443; 85025

== ENCOUNTER → 2023-04-18 09:34 | Outpatient (BNVA) | payer OTHER, SELFPAY | PROVIDERS: PCP Internal Medicine; Visit Provider Registered Nurse Diabetes Educator | DX: Z96.41 Presence of insulin pump (external) (internal) (principal); E11.65 Type 2 diabetes mellitus with hyperglycemia; Z79.4 Long term (current) use of insulin | CPT/HCPCS: 99211 ==

== ENCOUNTER 2023-05-12 15:30 | Outpatient (AMB) | payer OTHER, SELFPAY ==
[2023-05-12 15:33] VITALS: BP 122/60; PULSE 100; O2SAT 95; BMI 33.4
--- NOTE | 2023-05-12 15:33 | A.OFFPC_ITS ---
Vital Signs 05/12/23 15:33 Height 5 ft 1 in Weight 177 lb BMI 33.4 BP 122/60 Blood Pressure Location Lt brachial Position Sitting Pulse 100 Pulse Source Pulse Oximeter Pulse Oximetry (%) 95 Oxygen Delivery Method Room Air Intake Visit Reasons: DM, HTN, hyperlipidemia Balance Clerk Required: No Accompanied by: Self / Same As Patient Allergies Penicillins Allergy (Intermediate, Verified 05/26/23 05:30) RASH/HIVES Medication List - Last Reconciled 05/12/23 by Elijah Hunter MD [ADULT DIAPERS/BRIEFS As directed] aspirin 81 mg PO DAILY betamethasone dipropionate 0.05% 1 appl topical DAILY bisacodyl (Laxative (bisacodyl)) 10 mg (2 x 5 mg) PO BEDTIME blood sugar diagnostic (FreeStyle Lite Strips) 5 times a day blood-glucose meter,continuous (Dexcom G6 [employer]) As directed blood-glucose sensor (Dexcom G6 Sensor device) As directed blood-glucose transmitter (Dexcom G6 Transmitter device) As directed cholecalciferol (vitamin D3) 125 mcg PO DAILY clonazepam 1 mg PO BEDTIME compr.stocking,knee,long,large As directed diaper,brief,adult,disposable (Overnight Underwear Large) As directed PULL UPS donepezil 10 mg PO BEDTIME dorzolamide-timolol 22.3-6.8 mg/mL 1 drp ophthalmic (eye) BID dulaglutide (Trulicity) 1.5 mg (0.5 mL) subcut QWEEK fluoxetine 20 mg PO BID fluticasone propionate 50 mcg/actuation 2 sprays intranasal DAILY PRN gabapentin 300 mg PO TID 30 days galcanezumab-gnlm (Emgality Pen) 120 mg subcut QMONTH hydroxyzine HCl 25 mg PO TID PRN insulin glargine (Lantus Solostar U-100 Insulin) 33 units (0.33 mL) subcut DAILY insulin lispro (Humalog U-100 Insulin) 0 - 76 units (0 - 0.76 mL) subcut DAILY insulin pump cart,cont inf,BT (Omnipod Dash Pods (Gen 4) subcutaneous cartridge) USE 2 EA SUBCUTANEOUSLY EVERY 3 DAYS FOR 30 DAYS 2 BOXES PF 10 PODS CHANGE EVERY 3 DAYS insulin pump cart,cont inf,BT (Omnipod Dash Pods (Gen 4) subcutaneous cartridge) DIRECTED insulin pump cartridge 2 ea subcut Q3D 30 days NS levothyroxine 125 mcg PO QAM lifitegrast 5% (Xiidra) 1 drp ophthalmic (eye) BID magnesium oxide 400 mg PO BEDTIME melatonin 6 mg PO BEDTIME PRN methylcellulose (laxative) (Fiber Therapy (methylcellulose)) 1,000 mg (2 x 500 mg) PO DAILY PRN metoclopramide HCl 5 mg PO QID midodrine 10 mg PO TID mirabegron ER (Myrbetriq) 100 mg PO DAILY mirtazapine 30 mg PO QPM miscellaneous medical supply Wipes miscellaneous; 100 wipebox/ 3 boxes netarsudil 0.02% (Rhopressa) 1 drp ophthalmic (eye) BEDTIME nystatin 1 appl topical QID oxybutynin chloride ER 10 mg PO DAILY 90 days pantoprazole 40 mg PO BID pen needle, diabetic (Comfort EZ Pen Eclectic) As directed injects 4 times a day [PERSONAL CLEANING WIPES As directed] plecanatide (Trulance) 3 mg PO DAILY quetiapine 75 mg PO BEDTIME rosuvastatin 40 mg PO DAILY scopolamine base 1 patch transdermal Q3D PRN simethicone (Anti-Gas Ultra Strength) 180 mg PO QID [UNDERPADS As directed] Tobacco use date assessed: 05/12/23 Fall risk assessment: No Falls in past year Last assessed Fall Risk: 05/12/23 Dental Screening Dental Screen Date: 05/12/23 Did you have a dental visit in the last 12 months?: No Did you have a dental problem in the last 6 months where you did not have access to dental care?: No Was dental information given to patient?: No HPI DM, HTN, hyperlipidemia HPI Details Patient comes in today for her follow up visit States that she has been experiencing increased nasal/sinus congestion for the past 3 weeks Denies any fever or sore throat but notes that she feels somewhat SOB at times lately - is concerned that she may have a sinus infection going on right now Has been using her Flonase nasal spray lately with little relief of her symptoms Relates (+) on and off headaches as well as sinus pain/pressure lately; ears feel full Denies any chest pains No nausea/vomiting, no abdominal pain No change in bowel habits noted Had her follow up labs done last month - to discuss her results [facility] Medical History Acquired hypothyroidism Allergic rhinitis Anxiety Blind left eye Chronic pain syndrome COVID-19 vaccine administered CVA (cerebral vascular accident) Dementia 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 Depression Diabetic neuropathy Diabetic 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 type 2 diabetes mellitus Dizziness and giddiness Dyslipidemia Elevated LFTs Elevated liver enzymes Glaucoma Hearing impairment Hypertension Insomnia Localized swelling, mass and lump, neck 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 Lumbar spondylosis Migraine Obesity (BMI 30-39.9) Orthostatic hypotension Osteoarthritis Pain of right thumb Pure hypercholesterolemia Type 2 diabetes mellitus with diabetic polyneuropathy Urinary incontinence in female Urinary tract infection with pyuria Vitamin D deficiency Surgical History History of carpal tunnel release History of esophagogastroduodenoscopy (EGD) History of pubovaginal sling Hx of cholecystectomy Hx of colonoscopy Hx of cystoscopy Hx of eye surgery Hx of hysterectomy Family History Father Diabetes Mother Heart problem Brother Diabetes Social History Housing: Apartment Are you a primary child care leader to a significant other at home: No Do you presently have visiting nurse or other home services: Yes Alcohol intake: never Patient Tobacco Use Status: Never used Tobacco e-Cigarette/Vaping Use: Never Used Second Hand Smoke Exposure: No service: No Current occupational status: disabled Gender identity: Female Cognitive needs: Yes Hearing needs: No Vision needs: Yes Female Reproductive History Menstrual Age of Menarche: 10 Questionnaire PHQ-9 Over the last 2 weeks, how often have you been bothered by any of the following problems? 1. Little interest or pleasure in doing things: not at all 2. Feeling down, depressed, or hopeless: not at all 3. Trouble falling or staying asleep, or sleeping too much: not at all 4. Feeling tired or having little energy: not at all 5. Poor appetite or overeating: not at all 6. Feeling bad about yourself - or that you are a failure or have let yourself or your family down: not at all 7. Trouble concentrating on things, such as reading the newspaper or watching television: not at all 8. Moving or speaking so slowly that other people could have noticed. Or the opposite - being so fidgety or restless that you have been moving around a lot more than usual: not at all 9. Thoughts that you would be better off or of hurting yourself in some way: not at all Total score: 0 Depression Screening Interpretation: Negative (controlled on Rx) 47809 - PHQ-9 Billing: Yes Source: Developed by Drs. Neil Wayne, Lakisha Bell, Latrell Serra and colleagues, with an educational sophie from [employer]. Thrive Questionnaire Date Thrive assessed: 05/12/23 I am a: Patient What is your living situation today?: I have a steady place to live Within the past 12 months, did the food you bought not last and you didn't have the money to get more?: Never true Within the past 12 months, did you worry whether your food would run out before you got money to buy more?: Never true Do you have trouble paying for medicines?: No Do you have trouble getting transportation to medical appointments?: No Do you have trouble paying your heating and electricity bill?: No Do you have trouble taking care of your child, family member or friend?: No Do you have trouble with day-to-day activities such as bathing, preparing meals, shopping, managing finances, etc.?: No Are you currently unemployed and looking for a job?: No Are you interested in more education?: No Please select the resources that you would like help with: None Currently or been in a relationship where the following occur: no concerns reported AUDIT C Alcohol Use Questionnaire (AUDIT-C) 1. How often do you have a drink containing alcohol?: Never 3. How often do you have six or more drinks on one occasion?: Never Total Score: 0 Score Reviewed/Action Taken: Yes REJI-7 AMB Questionnaire REJI-7 Date REJI - 7 assessed: 05/12/23 Feeling nervous, anxious, or on edge: 0 = Not at all Not being able to stop or control worryin = Not at all Worrying too much about different things: 0 = Not at all Trouble relaxin = Not at all Being so restless that it is hard to sit still: 0 = Not at all Becoming easily annoyed or irritable: 0 = Not at all Feeling afraid as if something awful might happen: 0 = Not at all Total REJI-7 score (0-4 normal; 5-9 mild; 10-14 moderate; 15-21 severe): 0 Source: Developed by Drs. Neil Wayne, Lakisha Bell, Latrell Serra and colleagues, with an educational sophie from [employer]. Review of Systems Const Denies chills, Reports fatigue, Denies fever(s) and Denies headache(s) (controlled on current Rx) ENT Denies dysphagia, Denies otalgia (but ears feel full/congested lately), Denies headache(s) (controlled on current Rx), Reports nasal congestion, Reports neck pain (chronic), Reports sinus pain (mild), Reports sinus pressure and Denies sore throat Card Denies chest pain, Denies palpitations and Reports dyspnea on exertion (mild) Resp Denies cough, Reports dyspnea on exertion (mild) and Denies wheezing GI Denies abdominal pain, Reports constipation (chronic - currently controlled on Rx), Denies dysphagia, Denies heartburn, Denies diarrhea, Denies nausea and Denies vomiting Denies hematuria, Denies difficulty voiding, Reports nocturia, Denies dysuria, Reports urinary incontinence and Reports urinary urgency Musc Reports neck pain (chronic) Neuro Denies behavioral changes, Denies headache(s) (controlled on current Rx), Reports memory loss and Denies tremor(s) Psych Denies behavioral changes, Reports memory loss and Denies mood swings Endo Reports fatigue and Denies palpitations Aller/Immun Denies wheezing Physical exam (Primary Care) Vital Signs: Last Vital Signs Pulse 100 05/12/23 15:33 BP 122/60 05/12/23 15:33 Pulse Ox 95 05/12/23 15:33 Oxygen Delivery Method Room Air 05/12/23 15:33 BMI result Body Mass Index 33.4 Tobacco/Smoking Status: Tobacco use Status Tobacco use date assessed 05/12/23 05/12/23 15:41 Patient Tobacco Use Status Never used Tobacco 05/12/23 15:41 e-Cigarette/Vaping Use Never Used 05/12/23 15:41 PHQ-9: PHQ-9 Score PHQ-9: Total score 0 05/26/23 05:29 Depression Screening Interpretation: Negative (controlled on Rx) Thrive Assessment: Date of Thrive Assessment Date Thrive assessed 05/12/23 05/12/23 15:41 Currently or been in a relationship where the following occur: no concerns reported Const General: no acute distress and alert HENMT Ears: TM's normal bilaterally and EAC's normal Face and sinus: Yes sinus tenderness (mild) Throat: Yes posterior oropharynx normal and Yes tonsils normal (no TP congestion) Neck Neck: Yes no lymphadenopathy and Yes supple Resp Auscultation: clear to auscultation bilaterally, no rales and no wheezes Cardio Rate: regular rate Rhythm: regular rhythm Heart sounds: no murmurs GI Palpation (GI): Soft to palpation and nontender Auscultation: normal bowel sounds Back/Spine/Pelvis Cervical Spine: Cervical spine tenderness Extrem General: Yes no clubbing, cyanosis or edema Results Reviewed Results Reviewed: Laboratory Tests 03/25/23 03/25/23 03/25/23 11:00 11:00 11:00 WBC 4.0 L Hgb 12.5 Hct 37.6 Plt Count 123 L Sodium 140 Potassium 4.2 Creatinine 0.83 Estimated GFR > 60 Fasting Glucose 146 H Hemoglobin A1c % 6.9 Calcium 10.0 AST 36 H ALT 28 Triglycerides 120 Cholesterol 115 LDL Cholesterol, Calc 46 HDL Cholesterol 45 25-OH Vitamin D Total 48.6 TSH 0.93 Free T4 1.09 Ur Specific [place] Urine Protein Urine Glucose (UA) Urine Blood Microalb/Creat Ratio 03/25/23 03/25/23 11:01 11:01 WBC Hgb Hct Plt Count Sodium Potassium Creatinine Estimated GFR Fasting Glucose Hemoglobin A1c % Calcium AST ALT Triglycerides Cholesterol LDL Cholesterol, Calc HDL Cholesterol 25-OH Vitamin D Total TSH Free T4 Ur Specific [place] 1.015 Urine Protein Negative Urine Glucose (UA) Negative Urine Blood Negative Microalb/Creat Ratio 16.7 Assessment and Plan Assessment & Plan (1) Type 2 diabetes mellitus with diabetic polyneuropathy: Comment: insulin pump-average glucose 166/last A1C 6.2% Code(s): E11.42 - Type 2 diabetes mellitus with diabetic polyneuropathy Qualifiers: Diabetes mellitus correction insulin use: with intermediate school teacher 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 Velazquez) as scheduled (2) Diabetic 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 type 2 diabetes mellitus: Code(s): E11.319 - Type 2 diabetes mellitus with unspecified diabetic retinopathy without macular edema Qualifiers: Diabetes mellitus macular edema: without macular edema Diabetic retinopathy severity: with moderate nonproliferative retinopathy Laterality: bilateral Qualified Code(s): E11.3393 - Type 2 diabetes mellitus with moderate nonproliferative diabetic retinopathy without macular edema, bilateral Plan: Reinforced strict diabetes control to help slow down disease progression Follow up with ophthalmology as scheduled (3) Pure hypercholesterolemia: Code(s): E78.00 - Pure hypercholesterolemia, unspecified Plan: Results of her labs done last month reviewed and discussed with patient Reinforced low cholesterol diet Continue Rosuvastatin 40 mg QD Will recheck her labs in 3 months for follow up (4) Dementia: Code(s): F03.90 - Unspecified dementia, unspecified severity, without behavioral disturbance, psychotic disturbance, mood disturbance, and anxiety Qualifiers: Dementia behavioral disturbance: without behavioral disturbance Dementia type: unspecified type Qualified Code(s): F03.90 - Unspecified dementia without behavioral disturbance Plan: Continue Donepezil 10 mg QD Follow up with neurology as scheduled (5) Migraine: Code(s): G43.909 - Migraine, unspecified, not intractable, without status migrainosus Qualifiers: Intractability: not intractable Migraine type: unspecified Status migrainosus presence: without status migrainosus Qualified Code(s): G43.909 - Migraine, unspecified, not intractable, without status migrainosus Plan: Continue Emgality 120 mg injection once a month - headaches have been better controlled on her current Rx Follow up with neurology as scheduled (6) GERD (gastroesophageal reflux disease): Code(s): K21.9 - Gastro-esophageal reflux disease without esophagitis Qualifiers: Esophagitis presence: without esophagitis Qualified Code(s): K21.9 - Gastro-esophageal reflux disease without esophagitis Plan: Dietary restrictions reinforced Continue Pantoprazole 40 mg BID and Simethicone 100 mg QID PRN (7) Chronic idiopathic constipation: Code(s): K59.04 - Chronic idiopathic constipation Plan: Encouraged again increased oral fluids and dietary fiber Continue Trulance 3 mg QD, Fiber Therapy 1000 mg QD, Colace 100 mg QD PRN and Bisacodyl 10 mg Q HS PRN Follow up with GI as scheduled (8) Elevated LFTs: Code(s): R79.89 - Other specified abnormal findings of blood chemistry Plan: Improving - was most likely related to her weight Will continue to monitor her labs and LFTs regularly (9) Acquired hypothyroidism: Code(s): E03.9 - Hypothyroidism, unspecified Plan: TFTs were normal on her recent labs Continue Levothyroxine 125 mcg QD (10) Sinusitis: Code(s): J32.9 - Chronic sinusitis, unspecified Qualifiers: Chronicity: acute Recurrence: non-recurrent Sinusitis location: uns pecified location Qualified Code(s): J01.90 - Acute sinusitis, unspecified Plan: Will start empirically on Azithromycin QD x 5 days Instructed to continue using her Flonase nasal spray QD PRN (11) Allergic rhinitis: Code(s): J30.9 - Allergic rhinitis, unspecified Qualifiers: Allergic rhinitis seasonality: unspecified Allergic rhinitis trigger: unspecified Qualified Code(s): J30.9 - Allergic rhinitis, unspecified Plan: Continue Fluticasone 50 mcg nasal spray QD PRN (12) Diffuse idiopathic skeletal hyperostosis of cervical spine: Code(s): M48.12 - Ankylosing hyperostosis [[place]], cervical region Plan: Cervical spine CT done back in 2019 revealed (+) diffuse idiopathic skeletal hyperostosis Was on Tramadol 50 mg Q HS PRN although she has not taken this in a while now as it was not helping Is currently doing better on Gabapentin 300 mg TID Follow up with pain management as scheduled (13) Lumbar spondylosis: Code(s): M47.816 - Spondylosis without myelopathy or radiculopathy, lumbar region Plan: Reinforced activity and weight-lifting restrictions Gabapentin is also helping with her low back pain (14) Osteoarthritis: Code(s): M19.90 - Unspecified osteoarthritis, unspecified site Qualifiers: Osteoarthritis location: multiple joints Osteoarthritis type: primary Qualified Code(s): M89.49 - Other hypertrophic osteoarthropathy, multiple sites Plan: Involving multiple joints Has been using OTC pain patches PRN and OTC Tylenol PRN although she has been cautioned against taking too much Tylenol due to her slightly elevated LFTs in the past Will consider referral to orthopedics if her joint symptoms get worse (15) Overactive bladder: Code(s): N32.81 - Overactive bladder Plan: Continue Oxybutynin ER 10 mg QD; has failed multiple other Rx and urology is reportedly now considering injecting Botox into her urinary bladder muscles to help control her symptoms better Follow up with urology as scheduled (16) Vitamin D deficiency: Code(s): E55.9 - Vitamin D deficiency, unspecified Plan: Corrected - continue Vitamin D3 125 mcg QD (17) Glaucoma: Code(s): H40.9 - Unspecified glaucoma Qualifiers: Glaucoma type: unspecified Laterality: bilateral Qualified Code(s): H40.9 - Unspecified glaucoma Plan: Continue Rhopressa 0.02% 1 drop to eye Q HS and Dorzolamide-Timolol 22.3-6.8 mg/ml 1 drop to eye BID Is also on Xiidra 5% 1 drop to eye BID for dry eyes Follow up with ophthalmology as scheduled; is [facility] (18) Insomnia: Code(s): G47.00 - Insomnia, unspecified Qualifiers: Insomnia type: unspecified Qualified Code(s): G47.00 - Insomnia, unspecified Plan: Sleep hygiene reinforced Continue Melatonin 6 mg Q HS PRN Mirtazapine and Quetiapine also helps with her sleep at night (19) Anxiety: Code(s): F41.9 - Anxiety disorder, unspecified Plan: Continue Hydroxyzine 25 mg TID PRN and Clonazepam 1 mg Q HS (20) Depression: Code(s): F32.9 - Major depressive disorder, single episode, unspecified Qualifiers: Active/Remission status: currently active Depression Type: major depressive disorder Major depression episode severity: unspecified Major depression recurrence: recurrent Qualified Code(s): F33.9 - Major depressive disorder, recurrent, unspecified Plan: Continue Fluoxetine 20 mg BID, Mirtazapine 15 mg Q HS and Quetiapine 75 mg Q HS Follow up with psychiatry as scheduled (21) Obesity (BMI 30-39.9): Code(s): E66.9 - Obesity, unspecified Plan: Reinforced diet; exercise and weight loss are not realistic in her case given her dementia and multiple medical and physical comorbidities Plan Follow up in 3 months Orders: Orders Vitamin B12 and Folate 3 Months E53.8 - Deficiency of other specified B group vitamins Comprehensive [place]. Panel Fast 3 Months E78.00 - Pure hypercholesterolemia, unspecified Hemoglobin A1c 3 Months E11.9 - Type 2 diabetes mellitus without 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s Lipid Panel 3 Months E78.00 - Pure hypercholesterolemia, unspecified Free T4 (Free Thyroxine) 3 Months E03.9 - Hypothyroidism, unspecified Thyroid Stimulating Hormone 3 Months E03.9 - Hypothyroidism, unspecified Vitamin D 25-OH Total 3 Months E55.9 - Vitamin D deficiency, unspecified Microalbumin, Random (w Creat) 3 Months E11.9 - Type 2 diabetes mellitus without 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s Complete Blood Count Auto Diff 3 Months I10 - Essential (primary) hypertension UA CC w/rflx Micro + Cult 3 Months R30.0 - Dysuria Medications: New azithromycin take 500 mg today (day 1), then 250 mg for 4 days (days 2-5) PO 6 tabs 0RF Coding Level of Care Code Est Pt Level 4 (71164) Diagnoses Type 2 diabetes mellitus with diabetic polyneuropathy E11.42; Z79.4 Diabetes mellitus correction insulin use: with correction use Diabetic 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 type 2 diabetes mellitus E11.3393 Diabetes mellitus macular edema: without macular edema Diabetic retinopathy severity: with moderate nonproliferative retinopathy Laterality: bilateral Pure hypercholesterolemia E78.00 Dementia F03.90 Dementia behavioral disturbance: without behavioral disturbance Dementia type: unspecified type Migraine G43.909 Intractability: not intractable Migraine type: unspecified Status migrainosus presence: without status migrainosus GERD (gastroesophageal reflux disease) K21.9 Esophagitis presence: without esophagitis Chronic idiopathic constipation K59.04 Elevated LFTs R79.89 Acquired hypothyroidism E03.9 Sinusitis J01.90 Chronicity: acute Recurrence: non-recurrent Sinusitis location: unspecified location Allergic rhinitis J30.9 Allergic rhinitis seasonality: unspecified Allergic rhinitis trigger: unspecified Diffuse idiopathic skeletal hyperostosis of cervical spine M48.12 Lumbar spondylosis M47.816 Osteoarthritis M89.49 Osteoarthritis location: multiple joints Osteoarthritis type: primary Overactive bladder N32.81 Vitamin D deficiency E55.9 Glaucoma H40.9 Glaucoma type: unspecified Laterality: bilateral Insomnia G47.00 Insomnia type: unspecified Anxiety F41.9 Depression F33.9 Active/Remission status: currently active Depression Type: major depressive disorder Major depression episode severity: unspecified Major depression recurrence: recurrent Obesity (BMI 30-39.9) E66.9
== END 2023-05-12 16:25 | disposition home or self-care (01) ==
PROVIDERS: PCP Internal Medicine; Visit Provider Internal Medicine
DX: E11.42 Type 2 diabetes mellitus with diabetic polyneuropathy (principal); Z79.4 Long term (current) use of insulin; E11.3393 Type 2 diabetes mellitus with moderate nonproliferative diabetic retinopathy without macular edema, bilateral; F03.90 Unspecified dementia, unspecified severity, without behavioral disturbance, psychotic disturbance, mood disturbance, and anxiety; G43.909 Migraine, unspecified, not intractable, without status migrainosus; K21.9 Gastro-esophageal reflux disease without esophagitis; E03.9 Hypothyroidism, unspecified; E55.9 Vitamin D deficiency, unspecified; F41.9 Anxiety disorder, unspecified; F33.9 Major depressive disorder, recurrent, unspecified; E66.9 Obesity, unspecified; Z68.33 Body mass index [BMI] 33.0-33.9, adult
CPT/HCPCS: 99214

== ENCOUNTER 2023-05-14 10:26 | Outpatient (AMB) | payer OTHER, SELFPAY ==
--- NOTE | 2023-05-14 10:34 | MHC.OFFVIS ---
Intake Vital Signs 05/14/23 10:40 Height 5 ft 1 in Weight 178 lb BMI 33.6 BP 108/66 Blood Pressure Location Lt brachial Position Sitting Pulse 88 Intake Visit Reasons: f/u Type 2 DM pump and sensor Intake Note: Patient present today to follow up on Type 2 Diabetes Mellitus. Patient receives DME supplies through: Pharmacy Patient receives Omnipod supplies through: Pharmacy Last Diabetic Eye exam: April 2023 Last Podiatry Visit: was seen in September 2022, no longer sees [facility]. Random Glucose:139 mg/dl HgA1C: 6.9% 03/25/23 Instruction Librarian Required: Yes Instruction Librarian Language: [place]an Information Interpreted: non-clinical & clinical Accompanied by: Daughter Allergies Penicillins Allergy (Intermediate, Verified 05/14/23 10:38) RASH/HIVES Medication List - Last Reconciled 05/14/23 by Neil Velazquez MD [ADULT DIAPERS/BRIEFS As directed] aspirin 81 mg PO DAILY azithromycin take 500 mg today (day 1), then 250 mg for 4 days (days 2-5) PO betamethasone dipropionate 0.05% 1 appl topical DAILY bisacodyl (Laxative (bisacodyl)) 10 mg (2 x 5 mg) PO BEDTIME blood sugar diagnostic (FreeStyle Lite Strips) 5 times a day blood-glucose meter,continuous (Dexcom G6 Clinical Appeals Auditor) As directed blood-glucose sensor (Dexcom G6 Sensor device) As directed blood-glucose transmitter (Dexcom G6 Transmitter device) As directed cholecalciferol (vitamin D3) 125 mcg PO DAILY clonazepam 1 mg PO BEDTIME compr.stocking,knee,long,large As directed diaper,brief,adult,disposable (Overnight Underwear Large) As directed PULL UPS donepezil 10 mg PO BEDTIME dorzolamide-timolol 22.3-6.8 mg/mL 1 drp ophthalmic (eye) BID dulaglutide (Trulicity) 1.5 mg (0.5 mL) subcut QWEEK fluoxetine 20 mg PO BID fluticasone propionate 50 mcg/actuation 2 sprays intranasal DAILY PRN gabapentin 300 mg PO TID 30 days galcanezumab-gnlm (Emgality Pen) 120 mg subcut QMONTH hydroxyzine HCl 25 mg PO TID PRN insulin glargine (Lantus Solostar U-100 Insulin) 33 units (0.33 mL) subcut DAILY insulin lispro (Humalog U-100 Insulin) 0 - 76 units (0 - 0.76 mL) subcut DAILY insulin pump cart,cont inf,BT (Omnipod Dash Pods (Gen 4) subcutaneous cartridge) USE 2 EA SUBCUTANEOUSLY EVERY 3 DAYS FOR 30 DAYS 2 BOXES PF 10 PODS CHANGE EVERY 3 DAYS insulin pump cart,cont inf,BT (Omnipod Dash Pods (Gen 4) subcutaneous cartridge) DIRECTED insulin pump cartridge 2 ea subcut Q3D 30 days NS levothyroxine 125 mcg PO QAM lifitegrast 5% (Xiidra) 1 drp ophthalmic (eye) BID magnesium oxide 400 mg PO BEDTIME melatonin 6 mg PO BEDTIME PRN methylcellulose (laxative) (Fiber Therapy (methylcellulose)) 1,000 mg (2 x 500 mg) PO DAILY PRN metoclopramide HCl 5 mg PO QID midodrine 10 mg PO TID mirabegron ER (Myrbetriq) 100 mg PO DAILY mirtazapine 30 mg PO QPM miscellaneous medical supply Wipes miscellaneous; 100 wipebox/ 3 boxes netarsudil 0.02% (Rhopressa) 1 drp ophthalmic (eye) BEDTIME nystatin 1 appl topical QID oxybutynin chloride ER 10 mg PO DAILY 90 days pantoprazole 40 mg PO BID pen needle, diabetic (Comfort EZ Pen [place]) As directed injects 4 times a day [PERSONAL CLEANING WIPES As directed] plecanatide (Trulance) 3 mg PO DAILY quetiapine 75 mg PO BEDTIME rosuvastatin 40 mg PO DAILY scopolamine base 1 patch transdermal Q3D PRN simethicone (Anti-Gas Ultra Strength) 180 mg PO QID [UNDERPADS As directed] HPI HPI Comments History of Present Illness Details Patient is 68 year old female with DM type 2 diagnosed 2002 who presents for management of diabetes. Past medical history:DM2 GERD, depression, hypertension, hyperlipidemia, hypothyroidism. Micro and macrovascular 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s: + neuropathy, +background retinopathy, + nephropathy + microalbumin, no macrovascular disease. Symptoms reported: occasional numbness, tingling, cramping in lower extremities Hypoglycemia: reports hypoglycemia occasionally when does not eat everything that had planned to eat Hyperglycemia: denies urinary frequency, nocturia, polydypsia Continuous glucose monitoring:The last 2 weeks average blood glucose 148 Less than 1% low or very. 73% in target range of 70-180. 24% high, 2% very high. GM I 6.9 % No hypoglycemia Humalog via ominipod pump Her total daily insulin use is 39.8 units in 24 hour Basal 83 % Bolus 17 % Her daily average carbohydrate intake is 74.4 Pump settings Basal rate(s) (units/hour) : ?12 AM to 10 AM 1.5 units / hr 10AM to 12 AM? 1.25 units / hr Bolus setting Insulin Carbohydrate Ratio (s) 12 AM to 12 AM 1:9 Correction Factor / Sensitivity Factor 12 AM? to 12 AM 1:40 Active Insulin Time:? 4 hours Target(s): ?12 AM? to 12 PM? 120 mg/dL Correct above 120 mg/dL Also on Trulicity 1.5 mg q.week Diet: 3 meals a day with a few snacks. Drinks throughout day: water Exercise: limited due to balance issues Nutrition - diabetes education: currently sees [facility]: goes regularly Last ophthalmology evaluation: saw last wk laser treatment in both eyes in 2020 Complain of some left lower back pain Laboratory Tests 12/27/21 12/27/21 12/27/21 09:34 09:41 09:41 Creatinine 0.83 Estimated GFR > 60 Hemoglobin A1c % 6.2 Triglycerides 103 Cholesterol 121 LDL Cholesterol, C alc 54 HDL Cholesterol 47 25-OH Vitamin D To asim 37.1 TSH 1.26 Free T4 1.01 Microalb/Creat Rat io 22.8 PFSH Medical History Acquired hypothyroidism Allergic rhinitis Anxiety Blind left eye Chronic pain syndrome COVID-19 vaccine administered CVA (cerebral vascular accident) Dementia 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 Depression Diabetic neuropathy Diabetic 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 type 2 diabetes mellitus Dizziness and giddiness Dyslipidemia Elevated LFTs Elevated liver enzymes Glaucoma Hearing impairment Hypertension Insomnia Localized swelling, mass and lump, 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 Lumbar spondylosis Migraine Obesity (BMI 30-39.9) Orthostatic hypotension Osteoarthritis Pain of right thumb Pure hypercholesterolemia Type 2 diabetes mellitus with diabetic polyneuropathy Urinary incontinence in female Urinary tract infection with pyuria Vitamin D deficiency Surgical History History of carpal tunnel release History of esophagogastroduodenoscopy (EGD) History of pubovaginal sling Hx of cholecystectomy Hx of colonoscopy Hx of cystoscopy Hx of eye surgery Hx of hysterectomy Family History Father Diabetes Mother Heart problem Brother Diabetes Social History Housing: Apartment Are you a primary field care coordinator to a significant other at home: No Do you presently have visiting nurse or other home services: Yes Alcohol intake: never Patient Tobacco Use Status: Never used Tobacco e-Cigarette/Vaping Use: Never Used Second Hand Smoke Exposure: No service: No Current occupational status: disabled Gender identity: Female Cognitive needs: Yes Hearing needs: No Vision needs: Yes Female Reproductive History Menstrual Age of Menarche: 10 Physical Exam Absence of Cushingoid features. Absence of acromegalic features. Neck exam reveals nl size thyroid about 15 gms. No thyroid nodules palpable. No carotid bruits present. Lungs CTA. Heart S1 S2, Reg R/R. No M/R/ G. Skin exam reveals absence of vitiligo or acanthosis nigricans. Abdominal exam reveals Soft NT/ND with NA BS. No organomegaly present. Neck Other: . Extrem Other: Visual exam of foot performed. No ulcerations or open lesions. No onchomycosis, no callouses.Pulses 2 + distally. 2+ edema present lower extremities. Sensation intact to monofilament exam. Vibratory sensation sensed is decreased t with 128 Hz tuning fork Assessment & Plan Assessment & Plan (1) Diabetes type 2, uncontrolled: Code(s): E11.65 - Type 2 diabetes mellitus with hyperglycemia Qualifiers: Glycemic state: with hyperglycemia Qualified Code(s): E11.65 - Type 2 diabetes mellitus with hyperglycemia Plan: This is a 67-year-old female with history of type 2 diabetes being managed with an Omnipod 5 pump and Dexcom sensor and Trulicity with excellent improved glycemic control and known microvascular 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s namely retinopathy and neuropathy. Plan is to continue the current therapy with the Omnipod 5.. Coding Level of Care Code Est Pt Level 4 (80925) Diagnoses Diabetes type 2, uncontrolled E11.65 Glycemic state: with hyperglycemia
[2023-05-14 10:40] VITALS: BP 108/66; PULSE 88; BMI 33.6
[2023-05-14 10:51] LABS: Glucose, Whole Blood 139 mg/dL (60-115)
== END 2023-05-14 10:57 | disposition home or self-care (01) ==
PROVIDERS: PCP Internal Medicine; Visit Provider Internal Medicine Endocrinology, Diabetes & Metabolism
DX: E11.65 Type 2 diabetes mellitus with hyperglycemia (principal)
CPT/HCPCS: 99214

== ENCOUNTER → 2023-05-14 10:26 | Outpatient (BNVA) | payer OTHER, SELFPAY | PROVIDERS: Visit Provider Internal Medicine Endocrinology, Diabetes & Metabolism | DX: E11.65 Type 2 diabetes mellitus with hyperglycemia (principal); E11.42 Type 2 diabetes mellitus with diabetic polyneuropathy; E11.319 Type 2 diabetes mellitus with unspecified diabetic retinopathy without macular edema; E11.21 Type 2 diabetes mellitus with diabetic nephropathy; R80.9 Proteinuria, unspecified; Z79.4 Long term (current) use of insulin; Z96.41 Presence of insulin pump (external) (internal) | CPT/HCPCS: 82947; 99212 ==

== ENCOUNTER 2023-06-05 10:07 | Outpatient (AMB) | payer OTHER, SELFPAY ==
[2023-06-05 10:11] VITALS: BP 114/69; PULSE 84; BMI 33.5
--- NOTE | 2023-06-05 10:11 | MHC.OFFVIS ---
Intake Vital Signs 06/05/23 10:11 Height 5 ft 1 in Weight 177 lb 4.026 oz BMI 33.5 BP 114/69 Blood Pressure Location Lt brachial Position Sitting Pulse 84 Intake Visit Reasons: Follow up CIC Intake Note: Patient presents to in office visit today in follow up of abdominal pain and nausea. CC: Patient c/o a lot of heartburn and acid reflux, occasional nausea and vomiting. She also reports occasional abdominal pain. Place Change Roof Bolter Required: Yes Place Change Roof Bolter Name: daughter Accompanied by: Daughter Allergies francisco Allergy (Severe, Verified 06/05/23 10:14) Rash Penicillins Allergy (Intermediate, Verified 06/05/23 10:14) RASH/HIVES HPI Follow up CIC HPI Details Assessment & Plan (1) Delayed gastric emptying: ?Code(s): K30 - Functional dyspepsia ?Plan: They have not yet been called for the colonoscopy. Since taking the reglan qid whether she eats or not, her nausea and CIC has pretty much resolved. She is satisfied with this.? She continues on her Trulance once in the morning and her pantoprazole twice a day as well with good control of all of her symptoms. She is c/o bilateral a/c joint pain for a day or so, likely inflammation of the joint, recommend speaking to PCP and considering Voltaren gel or OTC icy hot. ROV after colonoscopy (2) GERD (gastroesophageal reflux disease): ?Code(s): K21.9 - Gastro-esophageal reflux disease without esophagitis ?Qualifiers: ?Esophagitis presence:?without esophagitis? Qualified Code(s):?K21.9 - Gastro-esophageal reflux disease without esophagitis (3) Chronic idiopathic constipation: ?Code(s): K59.04 - Chronic idiopathic constipation ? ? ? Medications: Refilled metoclopramide HCl (Reglan) ?? Presc riber aware of ser oquel and prozac u se and is monitori ng, please dispens e 5 mg? PO QIDACHS 1 20 tabs 6RF K30 - Functional d yspepsia ? pantoprazole 40 mg? PO BID 180 tabs 2RF ? ? plecanatide (Trula nce) 3 mg? PO DAILY 30 tabs 6RF K59.04 - Chronic i diopathic constipa tion ? simethicone (Anti- Gas Ultra Strength ) 180 mg? PO QID 120 caps 5RF ? ? COLONOSCOPY NOT SCHEDULED HER OBTAINED BIOPSY TODAY'S VISIT [place] #dtr translates per pt request They have not yet heard re: colonoscopy - I personally send a work note. She has been having N/V and worsening GERD, even about a hour and consistent adherence to her protonix. I think her diabetic gastroparesis may be worsening. Will try increasing reglan 10mg qid. If this is unsuccessful then we may go back to the lower dose and try changing the PPI. She cannot identify any changes in other chronic medications, any diet changes or any preceding illness that seems to be driving this sudden change in her GERD control. ROV 4 weeks. 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 Lumbar spondylosis Migraine Obesity (BMI 30-39.9) Orthostatic hypotension Osteoarthritis Pain of right thumb Pure hypercholesterolemia Type 2 diabetes mellitus with diabetic polyneuropathy Urinary incontinence in female Urinary tract infection with pyuria Vitamin D deficiency Surgical History History of carpal tunnel release History of esophagogastroduodenoscopy (EGD) History of pubovaginal sling Hx of cholecystectomy Hx of colonoscopy Hx of cystoscopy Hx of eye surgery Hx of hysterectomy Family History Father Diabetes Mother Heart problem Brother Diabetes Social History Housing: Apartment Are you a primary rn complex care to a significant other at home: No Do you presently have visiting nurse or other home services: Yes Alcohol intake: never Patient Tobacco Use Status: Never used Tobacco e-Cigarette/Vaping Use: Never Used Second Hand Smoke Exposure: No service: No Current occupational status: disabled Gender identity: Female Cognitive needs: Yes Hearing needs: No Vision needs: Yes Female Reproductive History Menstrual Age of Menarche: 10 Review of Systems Const Denies fatigue, Denies fever(s), Denies night sweats, Denies poor appetite and Denies weight loss Eyes Details: glasse Reports requires corrective lenses ENT Reports Normal hearing present, Denies dental pain, Denies dysphagia, Denies hearing loss, Denies mouth pain, Denies odynophagia, Denies throat swelling, Denies tongue swelling and Reports other (Dentition adequate) Card Reports no additional complaints Resp Reports no additional complaints GI Denies abdominal pain, Denies melena, Denies bloating, Denies hematochezia, Reports constipation, Denies GI cramping, Denies dysphagia, Denies excessive flatus, Reports early satiety, Reports heartburn, Denies diarrhea, Denies nausea, Denies odynophagia, Denies vomiting and Denies hematemesis Skin/Breast Denies pruritus, Denies lesions, Denies rash and Denies jaundice Neuro Reports Normal hearing present and Denies Abnormal speech present Endo Denies fatigue Aller/Immun Denies throat swelling and Denies tongue swelling Physical Exam Vital Signs: Last Vital Signs Pulse 84 06/05/23 10:11 BP 114/69 06/05/23 10:11 BMI result Body Mass Index 33.5 Const General: cooperative, no acute distress, well developed and well groomed Nutritional Appearance: well nourished and obese Orientation/consciousness: oriented to person, oriented to place and oriented to time Limitations: language barrier and ambulation with cane HEENT Head: Yes normocephalic and Yes atraumatic Eyes General: appearance normal, both eyes and all related structures Pupils: Equal, round and reactive pupils present Neck Neck: Yes normal visual inspection and Yes no lymphadenopathy Thyroid: Thyroid normal Resp Effort & Inspection: normal respiratory effort and able to speak in complete sentences Auscultation: clear to auscultation bilaterally Cardio Rate: regular rate Rhythm: regular rhythm Heart sounds: Normal, physiologic split S2 sound present Peripheral pulses: radial pulses present and posterior tibial pulses present GI Inspection: No distended, No Abdominal panniculus present and Yes obesity Palpation (GI): Soft to palpation, nontender, no guarding, not rigid and No hepatosplenomegaly present Percussion: Yes normal to percussion Auscultation: normal bowel sounds Rectal Exam - Female: deferred Skin General skin exam: no rashes or lesions noted, turgor normal, skin not dry, no jaundice, No spider nevi and no striae Rashes: no rashes Nails: normal Neuro General: oriented to person, oriented to place and oriented to time Cranial nerves: Yes Equal, round and reactive pupils present and Yes Normal hearing present Speech: No Abnormal speech present Extrem General: Yes normal to inspection, No clubbing, No cyanosis and No edema Psych Appearance: grossly normal and well kempt Mental Status: other Speech and movement: Normal speech and movement present Affect: normal affect Attitude: cooperative Thought process: not confabulating and Impoverished thought process present Thought content: Normal thought content present Insight: Limited insight present (Psych) Judgement: Limited judgement present (Psych) Assessment & Plan Assessment & Plan (1) GERD (gastroesophageal reflux disease): Code(s): K21.9 - Gastro-esophageal reflux disease without esophagitis Qualifiers: Esophagitis presence: without esophagitis Qualified Code(s): K21.9 - Gastro-esophageal reflux disease without esophagitis Plan: COLONOSCOPY NOT SCHEDULED HER OBTAINED BIOPSY TODAY'S VISIT [place] #dtr translates per pt request They have not yet heard re: colonoscopy - I personally send a work note. She has been having N/V and worsening GERD, even about a hour and consistent adherence to her protonix. I think her diabetic gastroparesis may be worsening. Will try increasing reglan 10mg qid. If this is unsuccessful then we may go back to the lower dose and try changing the PPI. She cannot identify any changes in other chronic medications, any diet changes or any preceding illness that seems to be driving this sudden change in her GERD control. She continues on her Trulance and magnesium with good control of her bowels. ROV 4 weeks. (2) Chronic idiopathic constipation: Code(s): K59.04 - Chronic idiopathic constipation (3) Delayed gastric emptying: Code(s): K30 - Functional dyspepsia (4) Gastroparesis: Code(s): K31.84 - Gastroparesis Medications: New metoclopramide HCl (Reglan) provider aware of possible interactions and is monitoring 10 mg PO QIDACHS 120 tabs 3RF K31.84 - Gastroparesis Coding Level of Care Code Est Pt Level 3 (53424) Diagnoses GERD (gastroesophageal reflux disease) K21.9 Esophagitis presence: without esophagitis Chronic idiopathic constipation K59.04 Delayed gastric emptying K30 Gastroparesis K31.84
== END 2023-06-05 10:55 | disposition home or self-care (01) ==
PROVIDERS: PCP Internal Medicine; Visit Provider Nurse Practitioner
DX: K21.9 Gastro-esophageal reflux disease without esophagitis (principal); K59.04 Chronic idiopathic constipation; K30 Functional dyspepsia; K31.84 Gastroparesis
CPT/HCPCS: 99213

== ENCOUNTER → 2023-06-05 10:07 | Outpatient (BNVA) | payer OTHER, SELFPAY | PROVIDERS: PCP Internal Medicine; Visit Provider Nurse Practitioner | DX: K59.04 Chronic idiopathic constipation (principal); K31.84 Gastroparesis; K21.9 Gastro-esophageal reflux disease without esophagitis; K30 Functional dyspepsia | CPT/HCPCS: 99212 ==

== ENCOUNTER 2023-06-09 08:31 | Outpatient (AMB) | payer OTHER, SELFPAY ==
--- NOTE | 2023-06-09 04:49 | A.OFFVIS_ITS ---
Intake Intake Visit Reasons: follow up/urinary frequency Intake Note: Patient is present for Follow Up Urology Med: Fidencio, ( Patient has been off Oxybutynin, states she was told she needs to see Dr for renewal) Antibiotic Allergy: Penicillin Blood Thinner: Aspirin [facility]: [facility] PVR: 0ml Patient states that she has been constantly having frequency and does have bladder pain She is requesting Botox for bladder that was done in past Allergies francisco Allergy (Severe, Verified 06/09/23 08:39) Rash Penicillins Allergy (Intermediate, Verified 06/09/23 08:39) RASH/HIVES Medication List - Last Reconciled 06/09/23 by Charlie Jones MD [DDisposable Underwear Heavy Absorbency Large (2) - Personal As directed] [Disposable Underpad 30 x 30 Heavy Flow As directed] [ADULT DIAPERS/BRIEFS As directed] aspirin 81 mg PO DAILY betamethasone dipropionate 0.05% 1 appl topical DAILY bisacodyl (Laxative (bisacodyl)) 10 mg (2 x 5 mg) PO BEDTIME blood sugar diagnostic (FreeStyle Lite Strips) 5 times a day blood-glucose meter,continuous (Dexcom G6 Enamel Shader) As directed blood-glucose sensor (Dexcom G6 Sensor device) As directed blood-glucose transmitter (Dexcom G6 Transmitter device) As directed cholecalciferol (vitamin D3) 125 mcg PO DAILY clonazepam 1 mg PO BEDTIME compr.stocking,knee,long,large As directed diaper,brief,adult,disposable (Overnight Underwear Large) As directed PULL UPS donepezil 10 mg PO BEDTIME dorzolamide-timolol 22.3-6.8 mg/mL 1 drp ophthalmic (eye) BID dulaglutide (Trulicity) 1.5 mg (0.5 mL) subcut QWEEK fluoxetine 20 mg PO BID fluticasone propionate 50 mcg/actuation 2 sprays intranasal DAILY PRN gabapentin 300 mg PO TID 30 days galcanezumab-gnlm (Emgality Pen) 120 mg subcut QMONTH hydroxyzine HCl 25 mg PO TID PRN insulin glargine (Lantus Solostar U-100 Insulin) 33 units (0.33 mL) subcut DAILY insulin lispro (Humalog U-100 Insulin) 0 - 76 units (0 - 0.76 mL) subcut DAILY insulin pump cart,cont inf,BT (Omnipod Dash Pods (Gen 4) subcutaneous cartridge) USE 2 EA SUBCUTANEOUSLY EVERY 3 DAYS FOR 30 DAYS 2 BOXES PF 10 PODS CHANGE EVERY 3 DAYS insulin pump cart,cont inf,BT (Omnipod Dash Pods (Gen 4) subcutaneous cartridge) DIRECTED insulin pump cartridge 2 ea subcut Q3D 30 days NS levothyroxine 125 mcg PO QAM lifitegrast 5% (Xiidra) 1 drp ophthalmic (eye) BID magnesium oxide 400 mg PO BEDTIME melatonin 6 mg PO BEDTIME PRN methylcellulose (laxative) (Fiber Therapy (methylcellulose)) 1,000 mg (2 x 500 mg) PO DAILY PRN metoclopramide HCl (Reglan) 10 mg PO QIDACHS midodrine 10 mg PO TID mirabegron ER (Myrbetriq) 50 mg PO DAILY mirtazapine 30 mg PO QPM miscellaneous medical supply Wipes miscellaneous; 100 wipebox/ 3 boxes netarsudil 0.02% (Rhopressa) 1 drp ophthalmic (eye) BEDTIME nitrofurantoin monohyd/m-cryst 100 mg (Macrobid) 100 mg PO BID nystatin 1 appl topical QID pantoprazole 40 mg PO BID pen needle, diabetic (Comfort EZ Pen [place]) As directed injects 4 times a day [Personal Cleansing Wipes (2) As directed] plecanatide (Trulance) 3 mg PO DAILY quetiapine 75 mg PO BEDTIME rosuvastatin 40 mg PO DAILY scopolamine base 1 patch transdermal Q3D PRN simethicone (Anti-Gas Ultra Strength) 180 mg PO QID [UNDERPADS As directed] HPI HPI Comments History of Present Illness Details Debo is a 68-year-old female who presents today to the office for a follow-up on urinary frequency. 06/09/2023? Debo is followed with a past medical history of anxiety, dementia, CVA, diabetic neuropathy, HLD, HTN, insomnia, diabetes, osteoarthritis, thyroid disease is followed for urinary frequency. She was last seen by me on 08/23/2022 for urinary frequency. Renal US and urine culture was ordered at that time. She has had bladder Botox injection 100 units on 10/08/2022. I reviewed the renal US results from 09/30/2022 revealed normal findings. I reviewed the urine culture results from 11/07/2022 revealed 10,000 to 50,000 cfu/mL mixed bacterial lin. The daughter reports that the patient has been having urinary frequency and pain with urination. She is taking Myrbetriq. She is requesting Myrbetriq refills today in the office. Review of charts: Last visit: 08/23/2022? 67-year-old female with a past medical history of anxiety, dementia, CVA, diabetic neuropathy, HLD, HTN, insomnia, diabetes, osteoarthritis, thyroid disease; is followed for overactive bladder symptoms and urge incontinence.? The patient is currently on oxybutynin 10 mg.? Her daughter is here who interprets for her.? She is still needing to wear pads.? The patient states in the past she had a bladder Botox injection which helped.? Denies dysuria.? Denies blood in the urine. Urinalysis today no signs of infection.? Will plan bladder Botox injection as an outpatient, will start Bactrim DS 2 days prior. 06/09/2023: Evaluation today?UA? leukocytes: negative; blood: negative; nitrite positive; bladder scan PVR: 0 mL. 06/09/2023: Plan: Prescribed Macrobid 100 mg BID for 10 days. Will refill the Myrbetriq 50 mg. Scheduled Botox treatment, patient will need to have repeat urine culture negative prior to Botox treatment. 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 Lumbar spondylosis Migraine Obesity (BMI 30-39.9) Orthostatic hypotension Osteoarthritis Pain of right thumb Pure hypercholesterolemia Type 2 diabetes mellitus with diabetic polyneuropathy Urinary incontinence in female Urinary tract infection with pyuria Vitamin D deficiency Surgical History History of carpal tunnel release History of esophagogastroduodenoscopy (EGD) History of pubovaginal sling Hx of cholecystectomy Hx of colonoscopy Hx of cystoscopy Hx of eye surgery Hx of hysterectomy Family History Father Diabetes Mother Heart problem Brother Diabetes Social History Housing: Apartment Are you a primary human services care specialist to a significant other at home: No Do you presently have visiting nurse or other home services: Yes Alcohol intake: never Patient Tobacco Use Status: Never used Tobacco e-Cigarette/Vaping Use: Never Used Second Hand Smoke Exposure: No service: No Current occupational status: disabled Gender identity: Female Cognitive needs: Yes Hearing needs: No Vision needs: Yes Female Reproductive History Menstrual Age of Menarche: 10 Review of Systems Const All systems reviewed & are unremarkable except as noted in HPI and below Reports no additional complaints Eyes Reports no additional complaints ENT Denies neck pain Resp Denies cough GI Denies constipation Reports no additional complaints Musc Reports no additional complaints and Denies neck pain Skin/Breast Denies rash and Denies unusual bruising Neuro Reports no additional complaints Psych Reports no additional complaints Endo Reports no additional complaints Ethan/Lymph Reports no additional complaints Aller/Immun Reports no additional complaints Physical Exam Const General: cooperative and no acute distress Orientation/consciousness: patient oriented x3 HEENT Head: Yes normal to inspection, Yes normocephalic and Yes atraumatic Eyes Conjunctivae: conjunctivae normal Neck Neck: Yes normal visual inspection and Yes trachea midline Chest Chest palpation & inspection: normal inspection of the chest Resp Effort & Inspection: normal respiratory effort Cardio Rate: regular rate GI Inspection: Yes normal to inspection Skin General skin exam: no rashes or lesions noted Neuro General: patient oriented x3 Psych Appearance: grossly normal Office Procedures Post Void Residual Post Residual Void Post Void Residual (PVR): 0 18030-[id number] Void Residual by ultrasound Results AMB Urinalysis, Automated UA Leukoctes 0 Benjamin/uL Last Edit by PETER Shields on 06/09/23 08:49 UA Nitrite Positive Last Edit by PETER Shields on 06/09/23 08:49 UA Urobilinogen 0.2 mg/dL Last Edit by PETER Shields on 06/09/23 08:4 9 UA Protein 0 mg/dL Last Edit by Teresa Daniel, A on 06/09/23 08:49 UA pH 6.0 Last Edit by Teresaarnaud Daniel, RMA on 06/09/23 08:49 UA Blood 0 Alexandr/uL Last Edit by Teresa Carreraro, RMA on 06/09/23 08:49 UA Specific [place] 1.015 Last Edit by Teresaarnaud Daniel, RMA on 06/09/23 08: 49 UA Ketone Negative Last Edit by Teresa Daniel, RMA on 06/09/23 08:49 UA Bilirubin 0 mg/dL Last Edit by Teresa Daniel, RMA on 06/09/23 08:49 UA Glucose 0 mg/dL Last Edit by Teresa Daniel, A on 06/09/23 08:49 Results Reviewed Results Reviewed: Laboratory Last Values Urine pH (Auto) 6.0 06/09/23 08:40 Specific [place] (Auto) 1.015 06/09/23 08:40 Urine Protein (Auto) 0 mg/dL 06/09/23 08:40 Glucose (UA)(Auto) 0 mg/dL 06/09/23 08:40 Urine Ketones (Auto) Negative 06/09/23 08:40 Urine Blood (Auto) 0 Alexandr/uL 06/09/23 08:40 Urine Nitrite (Auto) Positive 06/09/23 08:40 Urine Bilirubin (Auto) 0 mg/dL 06/09/23 08:40 Urine Urobilinogen (Auto) 0.2 mg/dL 06/09/23 08:40 Leukocyte Esterase (Auto) 0 Benjamin/uL 06/09/23 08:40 Date of Service: 09/30/22 EXAMINATION: US RETROPERITONEAL LIMITED (RENAL ONLY) CLINICAL INFORMATION: Urge incontinence. COMPARISON: Ultrasound abdomen complete with liver elastography 02/28/2021. X-ray abdomen KUB 12/09/2019. CT abdomen and pelvis 10/20/2019. Ultrasound abdomen complete 08/11/2019. FINDINGS: RIGHT KIDNEY: 12.4 x 3.7 x 6.2 cm (SAG x AP x TRV). The kidney is normal in size, contour, and echogenicity. Renal cortical thickness is normal. No calculi or focal parenchymal lesions. No hydronephrosis. LEFT KIDNEY: 12.0 x 3.8 x 4.7 cm (SAG x AP x TRV). The kidney is normal in size, contour, and echogenicity. Renal cortical thickness is normal. No calculi or focal parenchymal lesions. No hydronephrosis. IMPRESSION: Normal renal ultrasound. Ordered:? Urine Culture? Procedure?Result?Verified?Site ? Urine Culture? Final?11/09/22-1158 ? Report Result?10,000 to 50,000 cfu/ml ? Mixed bacterial lin characteristic of ? urogenital contamination. Assessment & Plan Assessment & Plan (1) Overactive bladder: Code(s): N32.81 - Overactive bladder (2) UTI (urinary tract infection): Code(s): N39.0 - Urinary tract infection, site not specified (3) Urge incontinence of urine: Code(s): N39.41 - Urge incontinence Plan Prescribed Macrobid 100 mg BID for 10 days. Will refill the Myrbetriq 50 mg. Scheduled Botox treatment, patient will need to have repeat urine culture negative prior to Botox treatment. Orders: Orders Urine Culture Today N39.0 - Urinary tract infection, site not specified AMB Urinalysis Automated Today Z13.9 - Encounter for screening, unspecified AMB Post Void Residual by ultrasound Today N32.81 - Overactive bladder Medications: New mirabegron ER (Myrbetriq) 50 mg PO DAILY 90 tabs 2RF nitrofurantoin monohyd/m-cryst 100 mg (Macrobid) must administer with a meal/food 100 mg PO BID 20 caps 0RF Patient Instructions: The patient had an opportunity to ask questions regarding treatment plan. All questions were answered. Imaging, Laboratory studies and physical exam results were discussed and reviewed in detail. No major barriers to understanding were identified. The patient expressed understanding and agreement with the above treatment plan.? ? ? The patient is aware they should contact our office by phone for worsening of their current condition or the appearance of new symptoms. Compliance is encouraged with any medications and followup testing that is ordered.? ? ? It is a privilege to be allowed the opportunity to participate in the urologic care of your patient. If you have any questions or concerns regarding treatment for the above conditions please do not hesitate to contact me. The office telephone contact is [phone].? ? ? This note is constructed in part using voice recognition software. While every effort has been made to ensure accuracy manager lpn errors may have been included.? ? ? Yours sincerely,? ? ? Charlie Jones MD? Coding Level of Care Code Est Pt Level 4 (04104) Diagnoses Overactive bladder N32.81 UTI (urinary tract infection) N39.0 Urge incontinence of urine N39.41 CPT Codes Post Residual Void - PVR CPT Code: 86217-Feyq Void Residual by ultrasound ([id number])
== END 2023-06-09 09:04 | disposition home or self-care (01) ==
PROVIDERS: PCP Internal Medicine; Visit Provider Urology
DX: N32.81 Overactive bladder (principal); N39.0 Urinary tract infection, site not specified; N39.41 Urge incontinence; Z13.9 Encounter for screening, unspecified
CPT/HCPCS: 99214

== ENCOUNTER → 2023-06-09 08:31 | Outpatient (BNVA) | payer OTHER, SELFPAY | PROVIDERS: PCP Internal Medicine; Visit Provider Urology | DX: N39.0 Urinary tract infection, site not specified (principal); R30.9 Painful micturition, unspecified; N32.81 Overactive bladder; N39.41 Urge incontinence; E11.42 Type 2 diabetes mellitus with diabetic polyneuropathy; Z79.82 Long term (current) use of aspirin; Z79.4 Long term (current) use of insulin; Z96.41 Presence of insulin pump (external) (internal); Z79.899 Other long term (current) drug therapy | CPT/HCPCS: 51798; 81003; 99212 ==

== ENCOUNTER 2023-06-09 17:06 | Outpatient (REF) | payer OTHER, SELFPAY | END 2023-06-09 17:07 | disposition home or self-care (01) | LOC: HO.LNP 17:06 | PROVIDERS: Visit Provider Urology | DX: N39.0 Urinary tract infection, site not specified (principal) | CPT/HCPCS: 87086; 87088; 87186 ==

== ENCOUNTER 2023-07-03 10:31 | Outpatient (AMB) | payer OTHER, SELFPAY ==
--- NOTE | 2023-07-03 10:34 | MHC.OFFVIS ---
Intake Vital Signs 07/03/23 10:42 Height 5 ft 1 in Weight 176 lb 5.917 oz BMI 33.3 BP 113/58 L Blood Pressure Location Lt brachial Position Sitting Pulse 89 Intake Visit Reasons: 4 week follow up Intake Note: Debo presents in the office as a 4 week follow up. CC: No concerns today! Acute Care Physician Required: Yes Acute Care Physician Name: Debo [id number] Allergies francisco Allergy (Severe, Verified 07/28/23 08:23) Rash Penicillins Allergy (Intermediate, Verified 07/28/23 08:23) RASH/HIVES HPI 4 week follow up HPI Details Assessment & Plan (1) GERD (gastroesophageal reflux disease): Code(s): K21.9 - Gastro-esophageal reflux disease without esophagitis Qualifiers: Esophagitis presence: without esophagitis Qualified Code(s): K21.9 - Gastro-esophageal reflux disease without esophagitis Plan: Cam[place]onian #dtr translates per pt request They have not yet heard re: colonoscopy - I personally send a work note. She has been having N/V and worsening GERD, even about a hour and consistent adherence to her protonix. I think her diabetic gastroparesis may be worsening. Will try increasing reglan 10mg qid. If this is unsuccessful then we may go back to the lower dose and try changing the PPI. She cannot identify any changes in other chronic medications, any diet changes or any preceding illness that seems to be driving this sudden change in her GERD control. She continues on her Trulance and magnesium with good control of her bowels. ROV 4 weeks. (2) Chronic idiopathic constipation: Code(s): K59.04 - Chronic idiopathic constipation (3) Delayed gastric emptying: Code(s): K30 - Functional dyspepsia (4) Gastroparesis: Code(s): K31.84 - Gastroparesis Medications: New metoclopramide HCl (Reglan) provider aware of possible interactions and is monitoring 10 mg PO QIDACHS 120 tabs 3RF K31.84 - Gastroparesis COLONOSCOPY Scheduled 07/22 at 11:30 BIOPSY TODAY'S VISIT Cameroonian #dtr translates per pt request Her dtr is here with her and is supportive and the primary towboat engineer. They say that the reglan increase to 10mg is helping a little but she is having increasing dizziness as well. Since she has worse dizziness, we are going to try cutting back the reglan to 5mg again and seei if reducing the dose affects the dizziness. I can not really give her any other nausea medicines as they have the same mechanism of action and potential side effects and she is already on a scopolamine patch and hydroxyzine. She sees Neurology for dizziness but he does not seem to think that this is related to a brain issue and has simply symptom back to the primary asking him to get nausea medicines. I think we need to spread a wide neck as we still could have medication side effect or metabolic problems causing the nausea. I am going to get a CBC and a Chem panel and amylase and a lipase to try to rule out things such as hyponatremia is possible causative factors. Also will get a UA to see if this is an atypical presentation of UTI. I want see her back in a week see how she is doing. Her colonoscopy is scheduled for July 22 I may need to consider if we need to add an EGD to a this to be thorough. Return office visit in 1 week [facility] Medical History Chronic pain syndrome Dementia 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 Diabetic neuropathy Insomnia Glaucoma Migraine Acquired hypothyroidism Hearing impairment COVID-19 vaccine administered CVA (cerebral vascular accident) Blind left eye Localized swelling, mass and lump, neck Urinary tract infection with pyuria Elevated LFTs Elevated liver enzymes Depression Anxiety Urinary incontinence in female Osteoarthritis Lumbar spondylosis Pure hypercholesterolemia Type 2 diabetes mellitus with diabetic polyneuropathy Pain of right thumb Allergic rhinitis Hypertension Obesity (BMI 30-39.9) Vitamin D deficiency Dyslipidemia Diabetic 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 type 2 diabetes mellitus longterm (current) use of insulin Dizziness and giddiness Orthostatic hypotension Surgical History History of carpal tunnel release History of pubovaginal sling Hx of eye surgery Hx of cystoscopy Hx of hysterectomy Hx of cholecystectomy History of esophagogastroduodenoscopy (EGD) Hx of colonoscopy Family History Father Diabetes Mother Heart problem Brother Diabetes Social History Housing: Apartment Are you a primary medication care manager to a significant other at home: No Do you presently have visiting nurse or other home services: Yes Alcohol intake: never Patient Tobacco Use Status: Never used Tobacco e-Cigarette/Vaping Use: Never Used Second Hand Smoke Exposure: No service: No Current occupational status: disabled Gender identity: Female Cognitive needs: Yes Hearing needs: No Vision needs: Yes Female Reproductive History Menstrual Age of Menarche: 10 Review of Systems Const Denies fatigue, Denies fever(s), Denies night sweats, Reports poor appetite and Denies weight loss ENT Reports Normal hearing present, Denies dental pain, Denies dysphagia, Reports dizziness, Denies hearing loss, Denies mouth pain, Denies odynophagia, Reports disequilibrium, Denies throat swelling, Denies tongue swelling and Reports other (Dentition adequate) Card Reports no additional complaints Resp Reports no additional complaints GI Denies abdominal pain, Denies melena, Denies bloating, Denies hematochezia, Denies constipation, Denies GI cramping, Denies dysphagia, Denies excessive flatus, Reports early satiety, Reports heartburn, Denies diarrhea, Reports nausea, Denies odynophagia, Denies vomiting and Denies hematemesis Skin/Breast Denies pruritus, Denies lesions, Denies rash and Denies jaundice Neuro Reports Normal hearing present, Denies Abnormal speech present, Reports dizziness and Reports disequilibrium Endo Denies fatigue Aller/Immun Denies throat swelling and Denies tongue swelling Physical Exam Vital Signs: Last Vital Signs Pulse 89 07/03/23 10:42 BP 113/58 L 07/03/23 10:42 BMI result Body Mass Index 33.3 Const General: cooperative, no acute distress, well developed and well groomed Nutritional Appearance: well nourished and obese Orientation/consciousness: oriented to person, oriented to place and oriented to time Limitations: language barrier and other limitations HEENT Head: Yes normocephalic and Yes atraumatic Eyes General: appearance normal, both eyes and all related structures Pupils: Equal, round and reactive pupils present Neck Neck: Yes normal visual inspection and Yes no lymphadenopathy Thyroid: Thyroid normal Resp Effort & Inspection: normal respiratory effort and able to speak in complete sentences Auscultation: clear to auscultation bilaterally Cardio Rate: regular rate Rhythm: regular rhythm Heart sounds: Normal, physiologic split S2 sound present Peripheral pulses: radial pulses present and posterior tibial pulses present GI Inspection: No distended, Yes Abdominal panniculus present and Yes obesity Palpation (GI): Soft to palpation, nontender, no guarding, not rigid and No hepatosplenomegaly present Percussion: Yes normal to percussion Auscultation: normal bowel sounds Rectal Exam - Female: deferred Skin General skin exam: no rashes or lesions noted, turgor normal, skin not dry, no jaundice, No spider nevi and no striae Rashes: no rashes Nails: normal Neuro General: oriented to person, oriented to place and oriented to time Cranial nerves: Yes Equal, round and reactive pupils present and Yes Normal hearing present Speech: No Abnormal speech present Extrem General: Yes normal to inspection, No clubbing, No cyanosis and No edema Psych Appearance: grossly normal and well kempt Mental Status: mental status grossly normal Speech and movement: Normal speech and movement present Affect: normal affect Attitude: cooperative Thought process: Circumstantial thought process present, not confabulating and Impoverished thought process present Thought content: Normal thought content present Insight: Limited insight present (Psych) Judgement: Limited judgement present (Psych) Assessment & Plan Assessment & Plan (1) Gastroparesis: Code(s): K31.84 - Gastroparesis Plan: COLONOSCOPY Scheduled 07/22 at 11:30 BIOPSY TODAY'S VISIT Cameroonian #dtr translates per pt request Her dtr is here with her and is supportive and the primary towboat engineer. They say that the reglan increase to 10mg is helping a little but she is having increasing dizziness as well. Since she has worse dizziness, we are going to try cutting back the reglan to 5mg again and see if reducing the dose affects the dizziness. I can not really give her any other nausea medicines as they have the same mechanism of action and potential side effects and she is already on a scopolamine patch and hydroxyzine. She sees Neurology for dizziness but he does not seem to think that this is related to a brain issue and has simply symptom back to the primary asking him to get nausea medicines. I think we need to spread a wide net as we still could have medication side effect or metabolic problems causing the nausea. I am going to get a CBC and a Chem panel and amylase and a lipase to try to rule out things such as hyponatremia is possible causative factors. Also will get a UA to see if this is an atypical presentation of UTI. I want see her back in a week see how she is doing. Her colonoscopy is scheduled for July 22 I may need to consider if we need to add an EGD to a this to be thorough. Return office visit in 1 week (2) Chronic idiopathic constipation: Code(s): K59.04 - Chronic idiopathic constipation (3) GERD (gastroesophageal reflux disease): Code(s): K21.9 - Gastro-esophageal reflux disease without esophagitis Qualifiers: Esophagitis presence: without esophagitis Qualified Code(s): K21.9 - Gastro-esophageal reflux disease without esophagitis (4) Dizziness: Code(s): R42 - Dizziness and giddiness (5) Nausea and vomiting: Code(s): R11.2 - Nausea with vomiting, unspecified Orders: Orders Complete Blood Count Auto Diff 07/03/23 R11.2 - Nausea with vomiting, unspecified, R42 - Dizziness and giddiness TSH reflex Free T4 07/03/23 R11.2 - Nausea with vomiting, unspecified, R42 - Dizziness and giddiness Comprehensive Met. Panel 07/03/23 R11.2 - Nausea with vomiting, unspecified, R42 - Dizziness and giddiness Lipase 07/03/23 R11.2 - Nausea with vomiting, unspecified, R42 - Dizziness and giddiness Amylase 07/03/23 R11.2 - Nausea with vomiting, unspecified, R42 - Dizziness and giddiness UA CC w/rflx Micro + Cult 07/03/23 R11.2 - Nausea with vomiting, unspecified, R42 - Dizziness and giddiness Medications: New metoclopramide HCl (Reglan) 5 mg PO QIDACHS 120 tabs 6RF Discontinued metoclopramide HCl provider aware of possible interactions and is monitoring Discontinued Reason: Doctor's Order 10 mg PO QIDACHS 120 tabs 3RF K31.84 - Gastroparesis Coding Level of Care Code Est Pt Level 4 (63333) Diagnoses Gastroparesis K31.84 Chronic idiopathic constipation K59.04 Gastroesophageal reflux disease without esophagitis K21.9 Esophagitis presence: without esophagitis Dizziness R42 Nausea and vomiting R11.2
[2023-07-03 10:42] VITALS: BP 113/58; PULSE 89; BMI 33.3
== END 2023-07-03 11:29 | disposition home or self-care (01) ==
PROVIDERS: PCP Internal Medicine; Visit Provider Nurse Practitioner
DX: K31.84 Gastroparesis (principal); K59.04 Chronic idiopathic constipation; K21.9 Gastro-esophageal reflux disease without esophagitis; R42 Dizziness and giddiness; R11.2 Nausea with vomiting, unspecified
CPT/HCPCS: 99214

== ENCOUNTER 2023-07-03 10:31 | Outpatient (REF) | payer OTHER, SELFPAY ==
[2023-07-03 11:54] LABS: MANUAL DIFF FLAG NO
[2023-07-03 12:04] LABS: Basophils Percent Auto 0.2 % (0-2); Eosinophils Absolute Auto 0.1 X10*3/uL (0.0-0.4); Eosinophils Percent Auto 2.2 % (0-4); Hematocrit 37.8 % (37.0-47.0); Hemoglobin 12.2 g/dl (12.0-16.0); Imm Gran Abs Auto 0.01 X10*3/uL (0.00-0.03); Imm Gran Pct Auto 0.2 % (0.0-0.4); Lymphocytes Absolute Auto 1.8 X10*3/uL (1.2-4.9); Lymphocytes Percent Auto 39.7 % (20-40); Mean Corpuscular HGB Conc 32.3 g/dl (31.0-35.0); Mean Corpuscular Hemoglobin 29.7 pg (27.0-33.0); Mean Platelet Volume 9.7 fL (9.4-12.3); Monocytes Absolute Auto 0.3 X10*3/uL (0.1-1.2); Monocytes Percent Auto 6.7 % (2-11); Neutrophils Absolute Auto 2.3 x10*3/uL (2.0-8.3); Platelet Count 120 X10*3/uL (160-400); Red Blood Count 4.11 X10*6/uL (4.20-5.50); Red Cell Distribution Width 13.3 % (11.0-16.0); White Blood Count 4.5 X10*3/uL (4.8-10.8)
[2023-07-03 12:39] LABS: Appearance Urine Clear; Color Urine Yellow; Glucose Urine UA Negative (Negative); Leukocyte Esterase Urine Negative (Negative); Nitrite Urine Negative (Negative); Specific Gravity - Urine 1.025 (1.005-1.025); Urine Blood Negative (Negative); Urine Ketones Negative (Negative); Urine Protein Negative (Neg-Trace)
[2023-07-03 12:42] LABS: Alanine Aminotransferase 32 U/L (0-31); Albumin Level 3.8 g/dL (3.5-5.0); Alkaline Phosphatase 116 U/L (39-117); Amylase 45 U/L (28-100); Anion Gap 11 (12-20); Aspartate Amino Transferase 43 U/L (5-31); Bilirubin Total 0.4 mg/dL (0.0-1.0); Blood Urea Nitrogen 24 mg/dL (9-16); Calcium 9.7 mg/dL (8.4-10.2); Carbon Dioxide 31 mmol/L (22-29); Chloride 106 mmol/L (96-108); Estimated Glomerular Filt Rate > 60; Glucose Random 84 mg/dL (60-115); Lipase 114 U/L (8-78); Potassium 4.5 mmol/L (3.3-5.1); Sodium 143 mmol/L (135-145)
[2023-07-03 13:00] LABS: TSH reflex Free T4 0.73 uIU/mL (0.32-4.0)
== END 2023-07-03 10:32 | disposition home or self-care (01) ==
LOC: HO.LAB 10:31
PROVIDERS: PCP Internal Medicine; Visit Provider Nurse Practitioner
DX: R11.2 Nausea with vomiting, unspecified (principal); R42 Dizziness and giddiness; K21.9 Gastro-esophageal reflux disease without esophagitis; K59.04 Chronic idiopathic constipation; K30 Functional dyspepsia; K31.84 Gastroparesis
CPT/HCPCS: 36415; 80053; 81003; 82150; 83690; 84443; 85025; 99212

== ENCOUNTER 2023-07-08 12:07 | Outpatient (AMB) | payer OTHER, SELFPAY ==
--- NOTE | 2023-07-08 12:10 | A.OFFVIS_ITS ---
Intake Vital Signs 07/08/23 12:11 Height 5 ft 1 in Weight 176 lb 12.972 oz BMI 33.4 BP 108/63 Blood Pressure Location Lt brachial Position Sitting Pulse 83 Intake Visit Reasons: 1 week f/u Intake Note: Patient presents to in office visit today in follow up of labs. CC: Patient c/o dizziness, nausea, and throwing up a green stuff . Onset of symptoms about two weeks ago. Quality Control Technician Required: Yes Quality Control Technician Name: daughter Accompanied by: Daughter Allergies francisco Allergy (Severe, Verified 07/08/23 12:14) Rash Penicillins Allergy (Intermediate, Verified 07/08/23 12:14) RASH/HIVES HPI 1 week f/u HPI Details Assessment & Plan (1) GERD (gastroesophageal reflux diseas e): Code(s): K21.9 - Gastro-esophageal reflux disease without esophagitis Qualifiers: Esophagitis presence: without esophagitis Qualified Code(s): K21.9 - Gastro-esophageal reflux disease without esophagitis Plan: Mongolian #dtr translates per pt request Mongolian #dtr translates per pt request Her dtr is here with her and is supportive adn [facility] primary director 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 They say that the reglan increase to 10mg is helping a little but she is having increasing dizziness as well. Since she has worse dizziness, we are going to try cutting back the reglan to 5mg again and seei if reducing the dose affects the dizziness. I can not really give her any other nausea medicines as they have the same mechanism of action and potential side effects and she is already on a scopolamine patch and hydroxyzine. She sees Neurology for dizziness but he does not seem to think that this is re lated to a brain issue and has simply symptom back to the primary asking him to get nausea medicines. I think we need to spread a wide neck as we still could have medication side effect or metabolic problems causing the nausea. I am going to get a CBC and a Chem panel and amylase and a lipase to try to rule out things such as hyponatremia is possible causative factors. Also will get a UA to see if this is an atypical presentation of UTI. I want see her back in a week see how she is doing. Her colonoscopy is scheduled for July 22 I may need to consider if we need to add an EGD to a this to be thorough. Assessment & Plan (1) Gastroparesis: Code(s): K31.84 - Gastroparesis (2) Chronic idiopathic constipation: Code(s): K59.04 - Chronic idiopathic constipation (3) GERD (gastroesophageal reflux diseas e): Code(s): K21.9 - Gastro-esophageal reflux disease without esophagitis Qualifiers: Esophagitis presence: without esophagitis Qualified Code(s): K21.9 - Gastro-esophageal reflux disease without esophagitis (4) Dizziness: Code(s): R42 - Dizziness and giddiness (5) Nausea and vomiting: Code(s): R11.2 - Nausea with vomiting, unspecified Orders: Orders Complete Blood Cou nt Auto Diff Today R11.2 - Nausea wit h vomiting, unspec ified, R42 - Dizzi ness and giddiness TSH reflex Free T4 Today R11.2 - Nausea wit h vomiting, unspec ified, R42 - Dizzi ness and giddiness Comprehensive Met. Panel Today R11.2 - Nausea wit h vomiting, unspec ified, R42 - Dizzi ness and giddiness Lipase Today R11.2 - Nausea wit h vomiting, unspec ified, R42 - Dizzi ness and giddiness Amylase Today R11.2 - Nausea wit h vomiting, unspec ified, R42 - Dizzi ness and giddiness UA CC w/rflx Micro + Cult Today R11.2 - Nausea wit h vomiting, unspec ified, R42 - Dizzi ness and giddiness Medications: New metoclopramide HCl (Reglan) 5 mg PO QIDACHS 1 20 tabs 6RF Discontinued metoclopramide HCl (Reglan) provi rajeev aware of possi ble interactions a nd is monitoring Discontinued Marjan son: Doctor's Ord er 10 mg PO QIDACHS 120 tabs 3RF K31.84 - Gastropar esis Laboratory Tests 03/25/23 03/25/23 07/03/23 11:00 11:00 11:53 WBC 4.5 L Hgb 12.2 Hct 37.8 Plt Count 120 L Estimated GFR > 60 Hemoglobin A1c % 6.9 Total Bilirubin AST ALT Alkaline Phosphata se Amylase Lipase Free T4 1.09 TSH 07/03/23 07/03/23 11:53 11:53 WBC Hgb Hct Plt Count Estimated GFR Hemoglobin A1c % Total Bilirubin 0.4 AST 43 H ALT 32 H Alkaline Phosphata se 116 Amylase 45 Lipase 114 H Free T4 TSH 0.73 07/03/23-[address]: Elijah Kelley MD ORDERED: Ua Clean Catch QUERIES: Sourc e: Urine, Clean Ca tch Test Result Flag Refere nce Si te Ur Color Yellow Ur Appear C lear P H 6. 0 5.0-9.0 Ur Glu Negati ve Negative mg/d L Urine Blood Negative Negative Spec Gr avity Ur 1.025 1.005-1.025 Urine Pro tein Negative N eg-Trace mg/dL Urine [place] es Negative Neg ative mg/dL Ur Nitrite Negative Negat flavia Ur Benjamin Esterase Negative Negativ e COLONOSCOPY July 22 BIOPSY TODAY'S VISIT Mongolian # daughter translates per patient request Lowering the reglan did NOT effect the dizziness, but it did cause more N/V. Also she has been c/o this since 2019 - well prior to when I started this medication. Review of her chart shows that there was some question of the dizziness being caused by her orthostatic hypotension. The last note from cardiology says she continues on midodrine but I do not see that it has been renewed recently and I wonder if maybe this accidentally fell out of her med box. I have asked her daughter to check on this. Apparently Neurology does not think that this is of neurologic origin. In the meantime we will increase the Reglan back since she is having more nausea vomiting and since it seems to be worse at noon will give her 2 tablets at noon. Her daughter recognizes the name under the generic and says she is not taking it she has no more. I will send a temp rx for 10mg tid to restore this and to see if this makes a difference. They will monitor her BP at home. Reviewed the labs and there is no indication of the urine tract infection other metabolic abnormality that may be contributing to her dizziness. Return office visit in 2 weeks [facility] Medical History Chronic pain syndrome Dementia 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 Diabetic neuropathy Insomnia Glaucoma Migraine Acquired hypothyroidism Hearing impairment COVID-19 vaccine administered CVA (cerebral vascular accident) Blind left eye Localized swelling, mass and lump, neck Urinary tract infection with pyuria Elevated LFTs Elevated liver enzymes Depression Anxiety Urinary incontinence in female Osteoarthritis Lumbar spondylosis Pure hypercholesterolemia Type 2 diabetes mellitus with diabetic polyneuropathy Pain of right thumb Allergic rhinitis Hypertension Obesity (BMI 30-39.9) Vitamin D deficiency Dyslipidemia Diabetic 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 diabetes mellitus 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 Dizziness and giddiness Orthostatic hypotension Surgical History History of carpal tunnel release History of pubovaginal sling Hx of eye surgery Hx of cystoscopy Hx of hysterectomy Hx of cholecystectomy History of esophagogastroduodenoscopy (EGD) Hx of colonoscopy Family History Father Diabetes Mother Heart problem Brother Diabetes Social History Housing: Apartment Are you a primary healthcare sales representative to a significant other at home: No Do you presently have visiting nurse or other home services: Yes Alcohol intake: never Patient Tobacco Use Status: Never used Tobacco e-Cigarette/Vaping Use: Never Used Second Hand Smoke Exposure: No service: No Current occupational status: disabled Gender identity: Female Cognitive needs: Yes Hearing needs: No Vision needs: Yes Female Reproductive History Menstrual Age of Menarche: 10 Review of Systems Const Denies fatigue, Denies fever(s), Reports headache(s), Denies night sweats, Denies poor appetite and Denies weight loss Eyes Details: glasses Reports requires corrective lenses ENT Reports Normal hearing present, Denies dental pain, Denies dysphagia, Reports vertigo, Reports dizziness, Reports headache(s), Denies hearing loss, Denies mouth pain, Denies odynophagia, Reports disequilibrium, Denies throat swelling, Denies tongue swelling and Reports other (Dentition adequate) Card Reports no additional complaints Resp Reports no additional complaints GI Denies abdominal pain, Denies melena, Denies bloating, Denies hematochezia, Reports constipation, Denies GI cramping, Denies dysphagia, Denies excessive flatus, Denies early satiety, Reports heartburn, Denies diarrhea, Reports nausea, Denies odynophagia, Reports vomiting and Denies hematemesis Musc Reports abnormal gait Skin/Breast Denies pruritus, Denies lesions, Denies rash and Denies jaundice Neuro Reports Normal hearing present, Denies Abnormal speech present, Reports abnormal gait, Reports vertigo, Reports dizziness, Reports headache(s) and Reports disequilibrium Endo Denies fatigue Aller/Immun Denies throat swelling and Denies tongue swelling Physical Exam Vital Signs: Last Vital Signs Pulse 83 07/08/23 12:11 BP 108/63 07/08/23 12:11 BMI result Body Mass Index 33.4 Const General: cooperative, no acute distress, well developed and well groomed Nutritional Appearance: well nourished and obese Orientation/consciousness: oriented to person, oriented to place and oriented to time Limitations: language barrier and ambulation with cane HEENT Head: Yes normocephalic and Yes atraumatic Eyes General: appearance normal, both eyes and all related structures Pupils: Equal, round and reactive pupils present Neck Neck: Yes normal visual inspection and Yes no lymphadenopathy Thyroid: Thyroid normal Resp Effort & Inspection: normal respiratory effort and able to speak in complete sentences Auscultation: clear to auscultation bilaterally Cardio Rate: regular rate Rhythm: regular rhythm Heart sounds: Normal, physiologic split S2 sound present Peripheral pulses: radial pulses present and posterior tibial pulses present GI Inspection: No distended, Yes Abdominal panniculus present and Yes obesity Palpation (GI): Soft to palpation, nontender, no guarding, not rigid and No hepatosplenomegaly present Percussion: Yes normal to percussion Auscultation: normal bowel sounds Rectal Exam - Female: deferred Skin General skin exam: no rashes or lesions noted, turgor normal, skin not dry, no jaundice, No spider nevi and no striae Rashes: no rashes Nails: normal Neuro General: oriented to person, oriented to place and oriented to time Cranial nerves: Yes Equal, round and reactive pupils present and Yes Normal hearing present Speech: No Abnormal speech present Extrem General: Yes normal to inspection, No clubbing, No cyanosis and No edema Psych Appearance: grossly normal and well kempt Mental Status: mental status grossly normal Speech and movement: Normal speech and movement present Affect: normal affect Attitude: cooperative Thought process: Normal thought process present and not confabulating Thought content: Normal thought content present Insight: Limited insight present (Psych) Judgement: Limited judgement present (Psych) Assessment & Plan Assessment & Plan (1) Dizziness: Code(s): R42 - Dizziness and giddiness Plan: Mongolian # daughter translates per patient request Lowering the reglan did NOT effect the dizziness, but it did cause more N/V. Also she has been c/o this since 2019 - well prior to when I started this medication. Review of her chart shows that there was some question of the dizziness being caused by her orthostatic hypotension. The last note from cardiology says she continues on midodrine but I do not see that it has been renewed recently and I wonder if maybe this accidentally fell out of her med box. I have asked her daughter to check on this. Apparently Neurology does not think that this is of neurologic origin. We did discuss that if we can not find a reason it continues to worsen she may wish to seek a 2nd opinion just to get a fresh set of eyes on the problem in terms of a Neurology consult. In the meantime we will increase the Reglan back since she is having more nausea vomiting and since it seems to be worse at noon will give her 2 tablets at noon. Her daughter recognizes the name under the generic and says she is not taking it she has no more. I will send a temp rx for 10mg tid to restore this and to see if this makes a difference. They will monitor her BP at home. Reviewed the labs and there is no indication of the urine tract infection other metabolic abnormality that may be contributing to her dizziness. Return office visit in 2 weeks (2) Nausea and vomiting: Code(s): R11.2 - Nausea with vomiting, unspecified (3) Gastroparesis: Code(s): K31.84 - Gastroparesis (4) Chronic idiopathic constipation: Code(s): K59.04 - Chronic idiopathic constipation (5) GERD (gastroesophageal reflux disease): Code(s): K21.9 - Gastro-esophageal reflux disease without esophagitis Qualifiers: Esophagitis presence: without esophagitis Qualified Code(s): K21.9 - Gastro-esophageal reflux disease without esophagitis Medications: New midodrine do not give last dose of day after 6PM or within 4 hrs of bedtime 10 mg PO TID 90 tabs 3RF R42 - Dizziness and giddiness metoclopramide HCl (Reglan) 1 tab qbreadfast, 2 qnoon, 1 q supper, 1qhs orally 4 times a day before meal/bed; 150 tabs 6RF K31.84 - Gastroparesis Discontinued metoclopramide HCl (Reglan) Discontinued Reason: Doctor's Order 5 mg PO QIDACHS 120 tabs 6RF Coding Level of Care Code Est Pt Level 4 (35514) Diagnoses Dizziness R42 Nausea and vomiting R11.2 Gastroparesis K31.84 Chronic idiopathic constipation K59.04 Gastroesophageal reflux disease without esophagitis K21.9 Esophagitis presence: without esophagitis
[2023-07-08 12:11] VITALS: BP 108/63; PULSE 83; BMI 33.4
== END 2023-07-08 12:54 | disposition home or self-care (01) ==
PROVIDERS: PCP Internal Medicine; Visit Provider Nurse Practitioner
DX: R42 Dizziness and giddiness (principal); R11.2 Nausea with vomiting, unspecified; K31.84 Gastroparesis; K59.04 Chronic idiopathic constipation; K21.9 Gastro-esophageal reflux disease without esophagitis
CPT/HCPCS: 99214

== ENCOUNTER → 2023-07-08 12:07 | Outpatient (BNVA) | payer OTHER, SELFPAY | PROVIDERS: PCP Internal Medicine; Visit Provider Nurse Practitioner | DX: K21.9 Gastro-esophageal reflux disease without esophagitis (principal); R42 Dizziness and giddiness; R11.2 Nausea with vomiting, unspecified; K59.04 Chronic idiopathic constipation; K31.84 Gastroparesis | CPT/HCPCS: 99212 ==

== ENCOUNTER → 2023-07-15 13:32 | Outpatient (BNVA) | payer OTHER, SELFPAY | PROVIDERS: PCP Internal Medicine; Visit Provider Urology | DX: N39.0 Urinary tract infection, site not specified (principal) | CPT/HCPCS: 51701 ==

== ENCOUNTER 2023-07-15 16:54 | Outpatient (REF) | payer OTHER, SELFPAY | END 2023-07-15 16:55 | disposition home or self-care (01) | LOC: HO.LNP 16:54 | PROVIDERS: Visit Provider Urology | DX: N39.0 Urinary tract infection, site not specified (principal) | CPT/HCPCS: 87086 ==

== ENCOUNTER 2023-07-18 10:34 | Outpatient (AMB) | payer OTHER, SELFPAY ==
[2023-07-18 10:38] VITALS: BP 138/82; PULSE 91; O2SAT 94; BMI 33.3
--- NOTE | 2023-07-18 10:38 | MHC.PC.OV ---
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: No Accompanied by: Self / Same As Patient Allergies francisco Allergy (Severe, Verified 07/18/23 11:05) Rash Penicillins Allergy (Intermediate, Verified 07/18/23 11:05) RASH/HIVES Medication List - Last Reconciled 07/18/23 by Elijah Hunter MD [DDisposable Underwear Heavy Absorbency Large (2) - Personal As directed] [Disposable Underpad 30 x 30 Heavy Flow As directed] [ADULT DIAPERS/BRIEFS As directed] aspirin 81 mg PO DAILY betamethasone dipropionate 0.05% 1 appl topical DAILY bisacodyl (Laxative (bisacodyl)) 10 mg (2 x 5 mg) PO BEDTIME blood sugar diagnostic (FreeStyle Lite Strips) 5 times a day blood-glucose meter,continuous (Dexcom G6 Power Plant Superintendent) As directed blood-glucose sensor (Dexcom G6 Sensor device) As directed blood-glucose transmitter (Dexcom G6 Transmitter device) As directed cholecalciferol (vitamin D3) 125 mcg PO DAILY clonazepam 1 mg PO BEDTIME compr.stocking,knee,long,large As directed diaper,brief,adult,disposable (Overnight Underwear Large) As directed PULL UPS donepezil 10 mg PO BEDTIME dorzolamide-timolol 22.3-6.8 mg/mL 1 drp ophthalmic (eye) BID dulaglutide (Trulicity) 1.5 mg (0.5 mL) subcut QWEEK fluoxetine 20 mg PO BID fluticasone propionate 50 mcg/actuation 2 sprays intranasal DAILY PRN gabapentin 300 mg PO TID 30 days galcanezumab-gnlm (Emgality Pen) 120 mg subcut QMONTH hydroxyzine HCl 25 mg PO TID PRN insulin glargine (Lantus Solostar U-100 Insulin) 33 units (0.33 mL) subcut DAILY insulin lispro (Humalog U-100 Insulin) 0 - 76 units (0 - 0.76 mL) subcut DAILY insulin pump cart,cont inf,BT (Omnipod Dash Pods (Gen 4) subcutaneous cartridge) USE 2 EA SUBCUTANEOUSLY EVERY 3 DAYS FOR 30 DAYS 2 BOXES PF 10 PODS CHANGE EVERY 3 DAYS insulin pump cart,cont inf,BT (Omnipod Dash Pods (Gen 4) subcutaneous cartridge) DIRECTED insulin pump cartridge 2 ea subcut Q3D 30 days NS levothyroxine 125 mcg PO QAM magnesium oxide 400 mg PO BEDTIME melatonin 6 mg PO BEDTIME PRN methylcellulose (laxative) (Fiber Therapy (methylcellulose)) 1,000 mg (2 x 500 mg) PO DAILY PRN metoclopramide HCl (Reglan) 1 tab qbreadfast, 2 qnoon, 1 q supper, 1qhs orally 4 times a day before meal/bed; midodrine 10 mg PO TID mirabegron ER (Myrbetriq) 50 mg PO DAILY mirtazapine 30 mg PO QPM miscellaneous medical supply Wipes miscellaneous; 100 wipebox/ 3 boxes pantoprazole 40 mg PO BID pen needle, diabetic (Comfort EZ Pen Dowling) As directed injects 4 times a day [Personal Cleansing Wipes (2) As directed] plecanatide (Trulance) 3 mg PO DAILY quetiapine 75 mg PO BEDTIME rosuvastatin 40 mg PO DAILY scopolamine base 1 patch transdermal Q3D PRN simethicone (Anti-Gas Ultra Strength) 180 mg PO QID [UNDERPADS As directed] Tobacco use date assessed: 07/18/23 Fall risk assessment: No Falls in past year Last assessed Fall Risk: 07/18/23 Dental Screening Dental Screen Date: 07/18/23 Did you have a dental visit in the last 12 months?: Yes Did you have a dental problem in the last 6 months where you did not have access to dental care?: No Was dental information given to patient?: Patient has dentist HPI Vomiting HPI Details Patient comes in today complaining of on and off nausea and vomiting for the past 3 days Her daughter states that she can hardly keep anything down and often throws up immediately anything she tries to eat or drink Patient also relates (+) upper abdominal mild pain and diffuse discomfort She denies any diarrhea; denies any fever, sore throat or any recent cough or cold symptoms Her daughter states that as patient has not really been able to eat or drink much of anything over the past few days, she has not been giving her the usual doses of insulin that she normally gets for fear of making her blood sugar drop too low Patient denies any increased headaches or dizziness lately Denies any chest pains, no SOB noted Would like to see if she can get her flu shot today - states that she;s only had soreness of her arm in the past whenever she gets her flu shot, with no other problems noted PFSH Medical History Chronic pain syndrome Dementia 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 Diabetic neuropathy Insomnia Glaucoma Migraine Acquired hypothyroidism Hearing impairment COVID-19 vaccine administered CVA (cerebral vascular accident) Blind left eye Localized swelling, mass and lump, neck Urinary tract infection with pyuria Elevated LFTs Elevated liver enzymes Depression Anxiety Urinary incontinence in female Osteoarthritis Lumbar spondylosis Pure hypercholesterolemia Type 2 diabetes mellitus with diabetic polyneuropathy Pain of right thumb Allergic rhinitis Hypertension Obesity (BMI 30-39.9) Vitamin D deficiency Dyslipidemia Diabetic 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 type 2 diabetes mellitus 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 (current) use of insulin Dizziness and giddiness Orthostatic hypotension Surgical History History of carpal tunnel release History of pubovaginal sling Hx of eye surgery Hx of cystoscopy Hx of hysterectomy Hx of cholecystectomy History of esophagogastroduodenoscopy (EGD) Hx of colonoscopy Family History Father Diabetes Mother Heart problem Brother Diabetes Social History Housing: Apartment Are you a primary transitional care manager to a significant other at home: No Do you presently have visiting nurse or other home services: Yes Alcohol intake: never Patient Tobacco Use Status: Never used Tobacco e-Cigarette/Vaping Use: Never Used Second Hand Smoke Exposure: No service: No Current occupational status: disabled Gender identity: Female Cognitive needs: Yes Hearing needs: No Vision needs: Yes Female Reproductive History Menstrual Age of Menarche: 10 Questionnaire PHQ-9 Over the last 2 weeks, how often have you been bothered by any of the following problems? 1. Little interest or pleasure in doing things: not at all 2. Feeling down, depressed, or hopeless: not at all 3. Trouble falling or staying asleep, or sleeping too much: not at all 4. Feeling tired or having little energy: not at all 5. Poor appetite or overeating: not at all 6. Feeling bad about yourself - or that you are a failure or have let yourself or your family down: not at all 7. Trouble concentrating on things, such as reading the newspaper or watching television: not at all 8. Moving or speaking so slowly that other people could have noticed. Or the opposite - being so fidgety or restless that you have been moving around a lot more than usual: not at all 9. Thoughts that you would be better off or of hurting yourself in some way: not at all Total score: 0 Depression Screening Interpretation: Negative (controlled on her Rx) Depression Screening Done: Yes [id number] - PHQ-9 Billing: Yes Source: Developed by Drs. Neil Wayne, Lakisha Bell, Latrell Serra and colleagues, with an educational sophie from [employer]. Thrive Questionnaire Date Thrive assessed: 07/18/23 I am a: Patient What is your living situation today?: I have a steady place to live Within the past 12 months, did the food you bought not last and you didn't have the money to get more?: Never true Within the past 12 months, did you worry whether your food would run out before you got money to buy more?: Never true Do you have trouble paying for medicines?: No Do you have trouble getting transportation to medical appointments?: No Do you have trouble paying your heating and electricity bill?: No Do you have trouble taking care of your child, family member or friend?: No Do you have trouble with day-to-day activities such as bathing, preparing meals, shopping, managing finances, etc.?: No Are you currently unemployed and looking for a job?: No Are you interested in more education?: No Please select the resources that you would like help with: None Currently or been in a relationship where the following occur: no concerns reported AUDIT C Alcohol Use Questionnaire (AUDIT-C) 1. How often do you have a drink containing alcohol?: Never 3. How often do you have six or more drinks on one occasion?: Never Total Score: 0 Score Reviewed/Action Taken: Yes REJI-7 AMB Questionnaire REJI-7 Date REJI - 7 assessed: 07/18/23 Feeling nervous, anxious, or on edge: 0 = Not at all Not being able to stop or control worryin = Not at all Worrying too much about different things: 0 = Not at all Trouble relaxin = Not at all Being so restless that it is hard to sit still: 0 = Not at all Becoming easily annoyed or irritable: 0 = Not at all Feeling afraid as if something awful might happen: 0 = Not at all Total REJI-7 score (0-4 normal; 5-9 mild; 10-14 moderate; 15-21 severe): 0 Source: Developed by Drs. Neil Wayne, Lakisha Bell, Latrell Serra and colleagues, with an educational sophie from [employer]. Review of Systems Const Denies chills, Reports fatigue, Denies fever(s) and Denies headache(s) (controlled on current Rx) ENT Denies dysphagia, Denies otalgia, Denies headache(s) (controlled on current Rx), Reports neck pain (chronic), Denies odynophagia and Denies sore throat Card Denies chest pain, Denies palpitations and Reports dyspnea on exertion (mild) Resp Denies cough, Reports dyspnea on exertion (mild) and Denies wheezing GI Reports abdominal pain (diffusely over the upper abdomen), Reports bloating, Reports constipation (chronic - currently controlled on Rx), Denies dysphagia, Denies heartburn, Denies diarrhea, Reports nausea, Denies odynophagia and Reports vomiting Denies hematuria, Denies difficulty voiding, Reports nocturia, Denies dysuria and Reports urinary incontinence Musc Reports neck pain (chronic) Skin/Breast Denies rash Neuro Denies behavioral changes, Denies headache(s) (controlled on current Rx), Reports memory loss and Denies tremor(s) Psych Denies behavioral changes, Reports memory loss and Denies mood swings Endo Reports fatigue and Denies palpitations Aller/Immun Denies wheezing Physical exam (Primary Care) Vital Signs: Last Vital Signs Pulse 91 07/18/23 10:38 BP 138/82 07/18/23 10:38 Pulse Ox 94 07/18/23 10:38 Oxygen Delivery Method Room Air 07/18/23 10:38 BMI result Body Mass Index 33.3 Tobacco/Smoking Status: Tobacco use Status Tobacco use date assessed 07/18/23 07/18/23 10:47 Patient Tobacco Use Status Never used Tobacco 07/18/23 10:41 e-Cigarette/Vaping Use Never Used 07/18/23 10:41 PHQ-9: PHQ-9 Score PHQ-9: Total score 0 07/18/23 11:05 Depression Screening Interpretation: Negative (controlled on her Rx) Thrive Assessment: Date of Thrive Assessment Date Thrive assessed 07/18/23 07/18/23 10:47 Currently or been in a relationship where the following occur: no concerns reported Const General: no acute distress and alert HENMT Ears: TM's normal bilaterally and EAC's normal Throat: Yes posterior oropharynx normal and Yes tonsils normal (no TP congestion) Neck Neck: Yes no lymphadenopathy and Yes supple Resp Auscultation: clear to auscultation bilaterally, no rales and no wheezes Cardio Rate: regular rate Rhythm: regular rhythm Heart sounds: no murmurs GI Palpation (GI): Soft to palpation and nontender Auscultation: normal bowel sounds Back/Spine/Pelvis Cervical Spine: Cervical spine tenderness Extrem General: Yes no clubbing, cyanosis or edema Office Procedures Flu Questionnaire Does the patient have a severe egg allergy?: No Does the patient have severe life threatening allergies?: No Does the patient have a fever or illness today?: No Has the patient ever had Guillain-[place] Syndrome?: No Has the patient ever had any past reaction to a flu shot?: No Immunizations flu vacc [id number] 6mos up(PF) 60 mcg(15 mcgx4)/0.5 mL IM syringe Performing Provider: Elijah Hunter MD [facility] Administered by: Gallito Flores on 07/18/23 11:17 Dose Route Admin Location Dispensed Lot Number Expiration Date NDC Rigger 0.5 mL IM Left Deltoid 0.5 mL [id number] 04/11/24 74257-087-02 [employer] VIS Given Date VIS Provided VIS Publication Date 07/18/23 Single Vaccine 21 Eligibility Eligibility Date Funding Source Not [facility] Eligible 07/18/23 Private Assessment and Plan Assessment & Plan (1) Nausea and vomiting: Code(s): R11.2 - Nausea with vomiting, unspecified Qualifiers: Vomiting type: unspecified Qualified Code(s): R11.2 - Nausea with vomiting, unspecified Plan: Patient and her daughter are advised that her recent nausea and vomiting may be due to either a stomach virus (viral gastroenteritis) or a flare up of her gastroparesis Will send her for a routine CBC and metabolic profile just to check her out and to make sure that her electrolytes are okay and she is not dehydrated Have advised her daughter to monitor patient's blood sugar closely for now and to continue to hold her insulin if she is still not eating or drinking much UNLESS her blood sugar spikes up very high Will start her for now on Ondansetron 4 mg Q 8 hours PRN Have advised her daughter to get her some OTC Pedialyte and to freeze these in an ice cube tray and have her suck on these as needed to keep her hydrated if she continues to not tolerate any oral fluids much Have also recommended to keep her on something of a BRAT diet for now until her GI symptoms improve but cautioned that if her symptoms get worse at any time over the weekend or the next few days, then she is to bring her to the ER [facility] for further evaluation Plan Flu vaccine given today, per request Follow up as scheduled next month Orders: Orders Influenza [id number] Immunization Today Z23 - Encounter for immunization Complete Blood Count Auto Diff Today R11.2 - Nausea with vomiting, unspecified Comprehensive Met. Panel Today R11.2 - Nausea with vomiting, unspecified Medications: New ondansetron 4 mg PO Q8H 15 days PRN 45 tabs 1RF nausea and vomiting Coding Level of Care Code Est Pt Level 3 (73504) Diagnoses Nausea and vomiting, unspecified vomiting type R11.2 Vomiting type: unspecified
== END 2023-07-18 11:19 | disposition home or self-care (01) ==
PROVIDERS: PCP Internal Medicine; Visit Provider Internal Medicine
DX: Z23 Encounter for immunization (principal); R11.2 Nausea with vomiting, unspecified
CPT/HCPCS: 90471; 90686; 99213

== ENCOUNTER 2023-07-18 11:35 | Outpatient (REF) | payer OTHER, SELFPAY ==
[2023-07-18 11:47] LABS: MANUAL DIFF FLAG NO
[2023-07-18 12:08] LABS: Basophils Percent Auto 0.4 % (0-2); Eosinophils Absolute Auto 0.1 X10*3/uL (0.0-0.4); Eosinophils Percent Auto 2.3 % (0-4); Hematocrit 41.7 % (37.0-47.0); Hemoglobin 13.8 g/dl (12.0-16.0); Imm Gran Abs Auto 0.01 X10*3/uL (0.00-0.03); Imm Gran Pct Auto 0.2 % (0.0-0.4); Lymphocytes Absolute Auto 1.7 X10*3/uL (1.2-4.9); Lymphocytes Percent Auto 32.4 % (20-40); Mean Corpuscular HGB Conc 33.1 g/dl (31.0-35.0); Mean Corpuscular Hemoglobin 30.5 pg (27.0-33.0); Mean Corpuscular Volume 92.1 fL (80.0-98.0); Mean Platelet Volume 9.7 fL (9.4-12.3); Monocytes Absolute Auto 0.3 X10*3/uL (0.1-1.2); Neutrophils Percent Auto 58.7 % (45-73); Platelet Count 151 X10*3/uL (160-400); Red Blood Count 4.53 X10*6/uL (4.20-5.50); Red Cell Distribution Width 13.2 % (11.0-16.0); White Blood Count 5.2 X10*3/uL (4.8-10.8)
[2023-07-18 12:17] LABS: Appearance Urine Clear; Color Urine Yellow; Glucose Urine UA Negative (Negative); Leukocyte Esterase Urine Negative (Negative); Nitrite Urine Negative (Negative); PH 6.5 (5.0-9.0); Urine Blood Negative (Negative); Urine Ketones Negative (Negative); Urine Protein Negative (Neg-Trace)
[2023-07-18 13:45] LABS: Estimated Average Glucose 126 mg/dL
[2023-07-18 14:08] LABS: Free T4 (Free Thyroxine) 1.04 ng/dL (0.71-1.85); Thyroid Stimulating Hormone 0.39 uIU/mL (0.32-4.0); Vitamin D 25-OH Total 47.7 ng/mL (>30)
[2023-07-18 14:09] LABS: Alanine Aminotransferase 28 U/L (0-31); Albumin Level 4.2 g/dL (3.5-5.0); Alkaline Phosphatase 116 U/L (39-117); Anion Gap 11 (12-20); Aspartate Amino Transferase 35 U/L (5-31); Bilirubin Total 0.5 mg/dL (0.0-1.0); Blood Urea Nitrogen 18 mg/dL (9-16); Calcium 9.9 mg/dL (8.4-10.2); Carbon Dioxide 30 mmol/L (22-29); Chloride 105 mmol/L (96-108); Cholesterol 109 mg/dL (<200); Estimated Glomerular Filt Rate > 60; Glucose Fasting 124 mg/dL (60-99); Glucose Random 124 mg/dL (60-115); HDL Cholesterol 52 mg/dL (>40); LDL Cholesterol Calculated 39 mg/dL (<100); Potassium 4.8 mmol/L (3.3-5.1); Sodium 141 mmol/L (135-145); Total Protein 7.7 g/dL (6.5-8.0); Triglycerides 94 mg/dL (<150)
[2023-07-18 14:47] LABS: Creatinine Urine 46.27 mg/dL; Microalbum/Creatinine Ratio Ur 32.4 ug/mg cr (<30)
== END 2023-07-18 11:36 | disposition home or self-care (01) ==
LOC: HO.LAB 11:35
PROVIDERS: PCP Internal Medicine; Visit Provider Internal Medicine
DX: R30.0 Dysuria (principal); E53.8 Deficiency of other specified B group vitamins; E03.9 Hypothyroidism, unspecified; R11.2 Nausea with vomiting, unspecified; E78.00 Pure hypercholesterolemia, unspecified; E11.9 Type 2 diabetes mellitus without 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s; E55.9 Vitamin D deficiency, unspecified
CPT/HCPCS: 36415; 80053; 80061; 81003; 82043; 82306; 82570; 82607; 82746; 83036; 84439; 84443; 85025

== ENCOUNTER 2023-07-22 11:32 | Day surgery (SDC) | payer OTHER, SELFPAY ==
[2023-07-17 09:21] VITALS: BMI 33.3
--- NOTE | 2023-07-18 10:02 | HO.ANESPROP2 ---
Documented by User: Jennifer Ervin NP 07/18/23 10:08 HPI - Anesthesia Eval Consult details Narrative: 68yo F for Colonoscopy Follows [facility] [place] for orthostatics. Maintained on midodrine. Last office eval 11/2022 Follows [place] [facility] for frontal temporal dementia and dizziness [facility] Active Problems Active Problems: All Active Problems (Updated 07/03/23 @ 11:12 by REKHA Chang) Dizziness (Acute) Nausea and vomiting (Acute) Gastroparesis (Acute) Sinusitis (Acute) Chronic idiopathic constipation (Acute) GERD (gastroesophageal reflux disease) (Acute) Rectocele (Acute) Hemorrhoids (Acute) Charmaine albicans infection (Acute) QT prolongation (Acute) Right sided abdominal pain (Acute) Simple ovarian cyst (Acute) Diabetic polyneuropathy associated with type 2 diabetes mellitus (Acute) Dementia (Acute) Diabetes type 2, uncontrolled (Acute) Overactive bladder (Acute) Chronic pain of left ankle (Acute) Aortic valve calcification (Acute) Diffuse idiopathic skeletal hyperostosis of cervical spine (Acute) Annual physical exam (Acute) Delayed gastric emptying (Acute) Goiter (Acute) Ankle fracture, left (Acute) Left ankle sprain (Acute) Diabetes mellitus (Acute) Left leg pain (Acute) Swelling of right lower extremity (Acute) Cellulitis of right lower leg (Acute) Right ankle swelling (Acute) Annual physical exam (Acute) Colon cancer screening (Acute) Uninhibited neurogenic bladder (Acute) Urge incontinence of urine (Acute) History of stroke (Acute) Pre-op examination (Acute) Chronic pain syndrome (Acute) Dementia 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 (Acute) Diabetic neuropathy (Acute) UTI (urinary tract infection) (Acute) Insomnia (Acute) Glaucoma (Acute) Migraine (Acute) Acquired hypothyroidism (Acute) Hearing impairment (Acute) Localized swelling, mass and lump, neck (Acute) Urinary tract infection with pyuria (Acute) Elevated LFTs (Acute) Elevated liver enzymes (Acute) Depression (Acute) Anxiety (Acute) Urinary incontinence in female (Acute) Osteoarthritis (Acute) Lumbar spondylosis (Acute) Pure hypercholesterolemia (Acute) Type 2 diabetes mellitus with diabetic polyneuropathy (Acute) Pain of right thumb (Acute) Allergic rhinitis (Acute) Hypertension (Acute) Obesity (BMI 30-39.9) (Acute) Vitamin D deficiency (Acute) Dyslipidemia (Acute) Diabetic 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 type 2 diabetes mellitus (Acute) longterm (current) use of insulin (Acute) Dizziness and giddiness (Acute) Orthostatic hypotension (Acute) Past Medical History Medical History Chronic pain syndrome Dementia 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 Diabetic neuropathy Insomnia Glaucoma Migraine Acquired hypothyroidism Hearing impairment COVID-19 vaccine administered CVA (cerebral vascular accident) Blind left eye Localized swelling, mass and lump, neck Urinary tract infection with pyuria Elevated LFTs Elevated liver enzymes Depression Anxiety Urinary incontinence in female Osteoarthritis Lumbar spondylosis Pure hypercholesterolemia Type 2 diabetes mellitus with diabetic polyneuropathy Pain of right thumb Allergic rhinitis Hypertension Obesity (BMI 30-39.9) Vitamin D deficiency Dyslipidemia Diabetic 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 type 2 diabetes mellitus longterm (current) use of insulin Dizziness and giddiness Orthostatic hypotension Family History Family History Father Diabetes Mother Heart problem Brother Diabetes Family history of problems with anesthesia: No Surgical History Surgical History History of carpal tunnel release History of pubovaginal sling Hx of eye surgery Hx of cystoscopy Hx of hysterectomy Hx of cholecystectomy History of esophagogastroduodenoscopy (EGD) Hx of colonoscopy History of Problems with Anesthesia: No Social History Social History Housing: Apartment Are you a primary residential care officer to a significant other at home: No Do you presently have visiting nurse or other home services: Yes Alcohol intake: never Patient Tobacco Use Status: Never used Tobacco e-Cigarette/Vaping Use: Never Used Second Hand Smoke Exposure: No Use of substances other than those prescribed or required for medical reasons: No Are you DNR?: No Advance Directives: No Advance Directives Information Provided: Yes service: No Current occupational status: disabled Gender identity: Female Cognitive needs: Yes Hearing needs: No Vision needs: Yes Meds Allergies Allergy/AdvReac Type Severity Reaction Status Date / Time francisco Allergy Severe Rash Verified 07/18/23 11:05 Penicillins Allergy Intermediate RASH/HIVES Verified 07/18/23 11:05 Home Medications Medication Instructions Recorded Confirmed Last Taken Type dorzolamide 22.3 mg-timolol 6.8 1 drp ophthalmic (eye) BID 09/27/20 07/18/23 Unknown History mg/mL eye drops quetiapine 25 mg tablet 75 mg PO BEDTIME 09/27/20 07/18/23 Unknown History melatonin 3 mg tablet 6 mg PO BEDTIME PRN Insomnia 05/08/21 07/18/23 Unknown History mirtazapine 30 mg tablet 30 mg PO QPM 01/07/22 07/18/23 Unknown History galcanezumab-gnlm 120 mg/mL 120 mg subcut QMONTH 03/15/22 07/18/23 Unknown History subcutaneous pen injector (Emgality Pen) clonazepam 0.5 mg tablet 1 mg PO BEDTIME 08/29/22 07/18/23 Unknown History blood-glucose meter,continuous 10/24/22 07/18/23 Unknown History (Dexcom G6 Job Honer) blood-glucose sensor (Dexcom G6 10/24/22 07/18/23 Unknown History Sensor device) blood-glucose transmitter (Dexcom 10/24/22 07/18/23 Unknown History G6 Transmitter device) Exam Exam Date and Time: July 18, 2023 1002 Height,Weight and Vital Signs: Height 5 ft 1 in Weight 79.832 kg Pertinent Lab Results Pertinent Lab Results: Laboratory Tests 07/03/23 11:53 WBC 4.5 L Hgb 12.2 Hct 37.8 Plt Count 120 L Sodium 143 Potassium 4.5 Chloride 106 Carbon Dioxide 31 H BUN 24 H Creatinine 0.81 Narrative Narrative: EKG 11/2022 sinus rhythm at 86/Min; leftward axis; no significant ST-T changes; normal IN and corrected QT ECHO 2020 Conclusions: - The left ventricular systolic function is normal. The calculated ejection fraction is 66% by biplane method. - There is mild calcification of the aortic valve. - No obvious valvular pathology seen on this study. Assessment and Plan Assessment Anesthesia Assessment: Chart Reviewed Final Anesthetic Review Family History of Problems with Anesthesia: No History of Problems with Anesthesia: No Documented by User: Jacqueline Shaikh MD 07/22/23 12:14 [facility] Active Problems Active Problems: All Active Problems (Updated 07/22/23 @ 12:00 by Jacqueline Shaikh MD) Dizziness (Acute) Nausea and vomiting (Acute) Gastroparesis (Acute) Sinusitis (Acute) Chronic idiopathic constipation (Acute) GERD (gastroesophageal reflux disease) (Acute) Rectocele (Acute) Hemorrhoids (Acute) Charmaine albicans infection (Acute) QT prolongation (Acute) Right sided abdominal pain (Acute) Simple ovarian cyst (Acute) Diabetic polyneuropathy associated with type 2 diabetes mellitus (Acute) Dementia (Acute) Diabetes type 2, uncontrolled (Acute) Overactive bladder (Acute) Chronic pain of left ankle (Acute) Aortic valve calcification (Acute) Diffuse idiopathic skeletal hyperostosis of cervical spine (Acute) Annual physical exam (Acute) Delayed gastric emptying (Acute) Goiter (Acute) Ankle fracture, left (Acute) Left ankle sprain (Acute) Left leg pain (Acute) Swelling of right lower extremity (Acute) Cellulitis of right lower leg (Acute) Right ankle swelling (Acute) Annual physical exam (Acute) Colon cancer screening (Acute) Uninhibited neurogenic bladder (Acute) Urge incontinence of urine (Acute) History of stroke (Acute)- impaired speech-mumbling Pre-op examination (Acute) Chronic pain syndrome (Acute) Dementia 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 (Acute) UTI (urinary tract infection) (Acute) Insomnia (Acute) Glaucoma (Acute) Migraine (Acute) Acquired hypothyroidism (Acute) Hearing impairment (Acute) Localized swelling, mass and lump, neck (Acute) Urinary tract infection with pyuria (Acute) Elevated LFTs (Acute) Depression (Acute) Anxiety (Acute) Osteoarthritis (Acute) Lumbar spondylosis (Acute) Pure hypercholesterolemia (Acute) Pain of right thumb (Acute) Allergic rhinitis (Acute) Hypertension (Acute) Obesity (BMI 30-39.9) (Acute) Vitamin D deficiency (Acute) Dyslipidemia (Acute) Diabetic 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 type 2 diabetes mellitus (Acute) longterm (current) use of insulin (Acute) Dizziness and giddiness (Acute) Orthostatic hypotension (Acute) Past Medical History Medical History Chronic pain syndrome Dementia 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 Diabetic neuropathy Insomnia Glaucoma Migraine Acquired hypothyroidism Hearing impairment COVID-19 vaccine administered CVA (cerebral vascular accident) Blind left eye Localized swelling, mass and lump, neck Urinary tract infection with pyuria Elevated LFTs Elevated liver enzymes Depression Anxiety Urinary incontinence in female Osteoarthritis Lumbar spondylosis Pure hypercholesterolemia Type 2 diabetes mellitus with diabetic polyneuropathy Pain of right thumb Allergic rhinitis Hypertension Obesity (BMI 30-39.9) Vitamin D deficiency Dyslipidemia Diabetic 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 type 2 diabetes mellitus longterm (current) use of insulin Dizziness and giddiness Orthostatic hypotension Family History Family History Father Diabetes Mother Heart problem Brother Diabetes Surgical History Surgical History History of carpal tunnel release History of pubovaginal sling Hx of eye surgery Hx of cystoscopy Hx of hysterectomy Hx of cholecystectomy History of esophagogastroduodenoscopy (EGD) Hx of colonoscopy Social History Social History Housing: Apartment Are you a primary residential care officer to a significant other at home: No Do you presently have visiting nurse or other home services: Yes Alcohol intake: never Patient Tobacco Use Status: Never used Tobacco e-Cigarette/Vaping Use: Never Used Second Hand Smoke Exposure: No Use of substances other than those prescribed or required for medical reasons: No Are you DNR?: No Advance Directives: No Advance Directives Information Provided: Yes service: No Current occupational status: disabled Gender identity: Female Cognitive needs: Yes Hearing needs: No Vision needs: Yes Meds Allergies Allergy/AdvReac Type Severity Reaction Status Date / Time francisco Allergy Severe Rash Verified 07/18/23 11:05 Penicillins Allergy Intermediate RASH/HIVES Verified 07/18/23 11:05 Home Medications Medication Instructions Recorded Confirmed Last Taken Type dorzolamide 22.3 mg-timolol 6.8 1 drp ophthalmic (eye) BID 09/27/20 07/18/23 Unknown History mg/mL eye drops quetiapine 25 mg tablet 75 mg PO BEDTIME 09/27/20 07/18/23 Unknown History melatonin 3 mg tablet 6 mg PO BEDTIME PRN Insomnia 05/08/21 07/18/23 Unknown History mirtazapine 30 mg tablet 30 mg PO QPM 01/07/22 07/18/23 Unknown History galcanezumab-gnlm 120 mg/mL 120 mg subcut QMONTH 03/15/22 07/18/23 Unknown History subcutaneous pen injector (Emgality Pen) clonazepam 0.5 mg tablet 1 mg PO BEDTIME 08/29/22 07/18/23 Unknown History blood-glucose meter,continuous 10/24/22 07/18/23 Unknown History (Dexcom G6 Job Honer) blood-glucose sensor (Dexcom G6 10/24/22 07/18/23 Unknown History Sensor device) blood-glucose transmitter (Dexcom 10/24/22 07/18/23 Unknown History G6 Transmitter device) Exam Height,Weight and Vital Signs: Height 5 ft 1 in Weight 79.832 kg Vital Signs Temp Pulse Resp BP Pulse Ox O2 Del Method 07/22/23 12:00 97.3 F 87 16 151/83 H 93 Room Air Pertinent Lab Results Pertinent Lab Results: Laboratory Tests 07/03/23 11:53 WBC 4.5 L Hgb 12.2 Hct 37.8 Plt Count 120 L Sodium 143 Potassium 4.5 Chloride 106 Carbon Dioxide 31 H BUN 24 H Creatinine 0.81 Lab Results 07/22/23 Range/Units 11:59 POC Glucose 181 H (60-115) mg/dL Airway Mallampati Class: III TM Dist: >3cm Neck ROM: Full Denture: Upper and Lower Heart: RRR Lungs: CTAB Assessment and Plan Assessment Anesthesia Assessment: Anesthesia Plan Discussed Final Anesthetic Review NPO: Yes ASA Class: III Final Preanesthetic Review: No Changes in Pt Med Stat, Meds/Allgs Chart Reviewed, Consent Obtained/Reviewed and Anes Risks/Benef Reviewed Patient Risk: Intermediate Procedure Risk: Low Assessment/Block/Sedation in SS: Assess/Block/Sedation-SS Anesthetic Plan Anesthetic Plan: GA Disposition: Standard PACU
[2023-07-22] VITALS (7 sets, daily range): BP systolic 139–172; BP diastolic 78–93; PULSE 74–87; RESP 16–20; TEMP 36.1–36.6; O2SAT 93–100
--- NOTE | 2023-07-22 12:57 | MHC.SHP ---
Pre-Procedural Eval Section A Date of Service: 07/22/23 Section B Chief Complaint: Constipation. screening Details of Present Illness: PMH: Chronic pain syndrome Dementia Diabetic neuropathy Insomnia Glaucoma Migraine Acquired hypothyroidism Hearing impairment COVID-19 vaccine administered CVA (cerebral vascular accident) Blind left eye Localized swelling, mass and lump, neck Urinary tract infection with pyuria Elevated LFTs Elevated liver enzymes Depression Anxiety Urinary incontinence in female Osteoarthritis Lumbar spondylosis Pure hypercholesterolemia Type 2 diabetes mellitus with diabetic polyneuropathy Pain of right thumb Allergic rhinitis Hypertension Obesity (BMI 30-39.9) Vitamin D deficiency Dyslipidemia Diabetic 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 type 2 diabetes mellitus [facility] (current) use of insulin Dizziness and giddiness Orthostatic hypotension Surgical History History of carpal tunnel release History of pubovaginal sling Hx of eye surgery Hx of cystoscopy Hx of hysterectomy Hx of cholecystectomy History of esophagogastroduodenoscopy (EGD) Hx of colonoscopy Allergies: Allergies Allergy/AdvReac Type Severity Reaction Status Date / Time francisco Allergy Severe Rash Verified 07/18/23 11:05 Penicillins Allergy Intermediate RASH/HIVES Verified 07/18/23 11:05 Review of Systems Review of Systems Comment: 10 point ROS negative Exam Exam Comment: Gen appear: No acute distress HEENT: no icterus Chest: No overt resp distress Abd: soft, nontender, nondistended Psych: Stable affect, answering questions appropriately Neuro: A/Ox3 noted to move all extremities spontaneously Ext: no peripheral edema Plan Diagnosis/Plan: Unchanged I have reviewed the history and physical and performed a pertinent physical examination on my patient. No changes have occurred unless specified. Consent taken from daughter/HCP. Time Spent With Patient Time: Total time managing care of this patient today ____ minutes.
--- NOTE | 2023-07-22 13:02 | W.PM.OPN ---
Operative Note Operative Note Date of Service: 07/22/23 Narrative: Procedure: Colonoscopy Indication: Screening, constipation Endoscopist: Joan Montiel MD Anesthesia Provider: Kaley Driscoll CRNA Anesthesia type: MAC Instrument: Olympus [id number]-[id number] Consent: Indication, risks vs benefits, and alternatives were discussed with the patient who gave written informed consent to proceed. [An staff interpreter was utilized to assist with the consent]. Monitoring: EKG, pulse, pulse oximetry and blood pressure were monitored throughout the procedure. Please see anesthesia flowsheet. Procedure: The patient was brought to the procedure room and placed in the left lateral decubitus position. IV medications were administered by the anesthesia provider in attendance. A digital rectal exam was performed which was abnormal due to finding of ext hemorrhoids. A distal attachment tip was affixed to the tip of the scope and the colonoscope was then inserted through the anus and advanced through the colon to the cecum at 75 cm,and terminal ileum. Appendiceal orifice and ileocecal valve were identified. Mucosa was carefully examined under high definition white light as the instrument was slowly withdrawn in a retrograde panoramic fashion. Retroflexion was performed in ascending colon and rectum. The procedure was not difficult. There were no immediate obvious 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s. The quality of the prep was BBPS: 2+3+2 = adequate Withdrawal time 12 minutes. Limitations: No limitations. Findings: Mucosa: Normal to cecum and terminal ileum. Protruding lesions: 1 sessile polyp of size 2 mm in cecum. Cold forceps polypectomy was performed. The polyp was completely removed and retrieved. Large internal hemorrhoids without stigmata of recent bleeding. Excavated lesions: Medium diverticulosis of left side of the colon. Impression: 1. Normal colon and terminal ileum mucosa 2. Total of 1 polyp removed 3. External and internal hemorrhoids 4. Diverticulosis Recommendations: - Follow path results. - Repeat colonoscopy for asymptomatic colorectal cancer screening in 7-10 years if in good health.
== END 2023-07-22 15:07 | disposition home or self-care (01) ==
PROVIDERS: PCP Internal Medicine; Visit Provider Internal Medicine
PROC: 0DJD8ZZ Inspection of Lower Intestinal Tract, Via Natural or Artificial Opening Endoscopic (ICD-10-PCS; CPT 45378; principal; 2023-07-22 13:00)
DX: Z12.11 Encounter for screening for malignant neoplasm of colon (principal); D12.0 Benign neoplasm of cecum; K57.30 Diverticulosis of large intestine without perforation or abscess without bleeding; K64.8 Other hemorrhoids; K59.04 Chronic idiopathic constipation; K21.9 Gastro-esophageal reflux disease without esophagitis; K30 Functional dyspepsia; G89.4 Chronic pain syndrome; I10 Essential (primary) hypertension; E11.40 Type 2 diabetes mellitus with diabetic neuropathy, unspecified; E11.319 Type 2 diabetes mellitus with unspecified diabetic retinopathy without macular edema; Z86.73 Personal history of transient ischemic attack (TIA), and cerebral infarction without residual deficits; Z79.4 Long term (current) use of insulin; Z88.0 Allergy status to penicillin; Z98.890 Other specified postprocedural states
CPT/HCPCS: 45380; 82947; 88305; J0330; J1100; J2405

== ENCOUNTER → 2023-07-22 11:32 | Outpatient (BNV) | payer OTHER, SELFPAY | PROVIDERS: PCP Internal Medicine; Visit Provider Internal Medicine | DX: Z12.11 Encounter for screening for malignant neoplasm of colon (principal); K59.09 Other constipation; K64.8 Other hemorrhoids | CPT/HCPCS: 45380 ==

== ENCOUNTER 2023-07-28 07:50 | Outpatient (AMB) | payer OTHER, SELFPAY ==
[2023-07-28 08:09] VITALS: BP 108/62; PULSE 90; O2SAT 93; BMI 31.9
--- NOTE | 2023-07-28 08:09 | A.OFFPC_ITS ---
Vital Signs 07/28/23 08:09 Height 5 ft 1 in Weight 169 lb BMI 31.9 BP 108/62 Blood Pressure Location Lt brachial Position Sitting Pulse 90 Pulse Source Pulse Oximeter Pulse Oximetry (%) 93 Oxygen Delivery Method Room Air Intake Visit Reasons: 08/06/23 Glaucoma Surgery Left Eye Allergies francisco Allergy (Severe, Verified 07/28/23 08:23) Rash Penicillins Allergy (Intermediate, Verified 07/28/23 08:23) RASH/HIVES Medication List - Last Reconciled 07/28/23 by FRANCOIS Cota [DDisposable Underwear Heavy Absorbency Large (2) - Personal As directed] [Disposable Underpad 30 x 30 Heavy Flow As directed] [ADULT DIAPERS/BRIEFS As directed] aspirin 81 mg PO DAILY betamethasone dipropionate 0.05% 1 appl topical DAILY bisacodyl (Laxative (bisacodyl)) 10 mg (2 x 5 mg) PO BEDTIME blood sugar diagnostic (FreeStyle Lite Strips) 5 times a day blood-glucose meter,continuous (Dexcom G6 Inpatient Pharmacist) As directed blood-glucose sensor (Dexcom G6 Sensor device) As directed blood-glucose transmitter (Dexcom G6 Transmitter device) As directed cholecalciferol (vitamin D3) 125 mcg PO DAILY clonazepam 1 mg PO BEDTIME compr.stocking,knee,long,large As directed diaper,brief,adult,disposable (Overnight Underwear Large) As directed PULL UPS donepezil 10 mg PO BEDTIME dorzolamide-timolol 22.3-6.8 mg/mL 1 drp ophthalmic (eye) BID dulaglutide (Trulicity) 1.5 mg (0.5 mL) subcut QWEEK fluoxetine 20 mg PO BID fluticasone propionate 50 mcg/actuation 2 sprays intranasal DAILY PRN gabapentin 300 mg PO TID 30 days galcanezumab-gnlm (Emgality Pen) 120 mg subcut QMONTH hydroxyzine HCl 25 mg PO TID PRN insulin glargine (Lantus Solostar U-100 Insulin) 33 units (0.33 mL) subcut DAILY insulin lispro (Humalog U-100 Insulin) 0 - 76 units (0 - 0.76 mL) subcut DAILY insulin pump cart,cont inf,BT (Omnipod Dash Pods (Gen 4) subcutaneous cartridge) USE 2 EA SUBCUTANEOUSLY EVERY 3 DAYS FOR 30 DAYS 2 BOXES PF 10 PODS CHANGE EVERY 3 DAYS insulin pump cart,cont inf,BT (Omnipod Dash Pods (Gen 4) subcutaneous cartridge) DIRECTED insulin pump cartridge 2 ea subcut Q3D 30 days NS levothyroxine 125 mcg PO QAM magnesium oxide 400 mg PO BEDTIME melatonin 6 mg PO BEDTIME PRN methylcellulose (laxative) (Fiber Therapy (methylcellulose)) 1,000 mg (2 x 500 mg) PO DAILY PRN metoclopramide HCl 5 mg PO QID midodrine 10 mg PO TID mirabegron ER (Myrbetriq) 50 mg PO DAILY mirtazapine 30 mg PO QPM miscellaneous medical supply Wipes miscellaneous; 100 wipebox/ 3 boxes ondansetron 4 mg PO Q8H PRN 15 days pantoprazole 40 mg PO BID pen needle, diabetic (Comfort EZ Pen [place]) As directed injects 4 times a day [Personal Cleansing Wipes (2) As directed] plecanatide (Trulance) 3 mg PO DAILY quetiapine 75 mg PO BEDTIME rosuvastatin 40 mg PO DAILY scopolamine base 1 patch transdermal Q3D PRN simethicone (Anti-Gas Ultra Strength) 180 mg PO QID [UNDERPADS As directed] Tobacco use date assessed: 07/18/23 Fall risk assessment: No Falls in past year Last assessed Fall Risk: 07/28/23 Dental Screening Dental Screen Date: 07/28/23 Did you have a dental visit in the last 12 months?: Yes Did you have a dental problem in the last 6 months where you did not have access to dental care?: No Was dental information given to patient?: Patient has dentist HPI HPI Comments History of Present Illness Details 68-year-old female past medical history significant for type 2 diabetes mellitus long-term insulin use, hypertension, hypercholesteremia, lumbar spondylosis, dementia, stroke, GERD. Patient of Dr. Hunter last seen the beginning of this month. Patient presents today for preop appointment for left eye glaucoma surgery on 08/06/2023 by [facility] in [place] under local anesthesia. Complete blood work done on 07/18/2023 unremarkable. Hemoglobin A1c 6.0%. EKG in office shows normal sinus rhythm with horizontal access, long QT interval. No significant change noted from previous EKGs. [facility] Medical History Chronic pain syndrome Dementia 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 Diabetic neuropathy Insomnia Glaucoma Migraine Acquired hypothyroidism Hearing impairment COVID-19 vaccine administered CVA (cerebral vascular accident) Blind left eye Localized swelling, mass and lump, neck Urinary tract infection with pyuria Elevated LFTs Elevated liver enzymes Depression Anxiety Urinary incontinence in female Osteoarthritis Lumbar spondylosis Pure hypercholesterolemia Type 2 diabetes mellitus with diabetic polyneuropathy Pain of right thumb Allergic rhinitis Hypertension Obesity (BMI 30-39.9) Vitamin D deficiency Dyslipidemia Diabetic 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 type 2 diabetes mellitus 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 Dizziness and giddiness Orthostatic hypotension Surgical History History of carpal tunnel release History of pubovaginal sling Hx of eye surgery Hx of cystoscopy Hx of hysterectomy Hx of cholecystectomy History of esophagogastroduodenoscopy (EGD) Hx of colonoscopy Family History Father Diabetes Mother Heart problem Brother Diabetes Social History Housing: Apartment Are you a primary careers counsellor to a significant other at home: No Do you presently have visiting nurse or other home services: Yes Alcohol intake: never Patient Tobacco Use Status: Never used Tobacco e-Cigarette/Vaping Use: Never Used Second Hand Smoke Exposure: No service: No Current occupational status: disabled Gender identity: Female Cognitive needs: Yes Hearing needs: No Vision needs: Yes Female Reproductive History Menstrual Age of Menarche: 10 Questionnaire PHQ-9 Over the last 2 weeks, how often have you been bothered by any of the following problems? 1. Little interest or pleasure in doing things: not at all 2. Feeling down, depressed, or hopeless: not at all 3. Trouble falling or staying asleep, or sleeping too much: not at all 4. Feeling tired or having little energy: not at all 5. Poor appetite or overeating: not at all 6. Feeling bad about yourself - or that you are a failure or have let yourself or your family down: not at all 7. Trouble concentrating on things, such as reading the newspaper or watching television: not at all 8. Moving or speaking so slowly that other people could have noticed. Or the opposite - being so fidgety or restless that you have been moving around a lot more than usual: not at all 9. Thoughts that you would be better off or of hurting yourself in some way: not at all Total score: 0 Depression Screening Interpretation: Negative (controlled on her Rx) Depression Screening Done: Yes 48817 - PHQ-9 Billing: Yes Source: Developed by Drs. Neil Wayne, Lakisha Bell, Latrell Serra and colleagues, with an educational sophie from [employer] Thrive Questionnaire Date Thrive assessed: 07/18/23 AUDIT C Alcohol Use Questionnaire (AUDIT-C) 1. How often do you have a drink containing alcohol?: Never 3. How often do you have six or more drinks on one occasion?: Never Total Score: 0 Score Reviewed/Action Taken: Yes REJI-7 AMB Questionnaire REJI-7 Date REJI - 7 assessed: 07/18/23 Source: Developed by Drs. Neil Wayne, Lakisha Bell, Latrell Serra and colleagues, with an educational sophie from [employer] Review of Systems Const Denies chills, Denies fatigue, Denies fever(s) and Denies poor appetite Eyes Denies no additional complaints ENT Reports Normal hearing present Card Denies chest pain, Denies syncope, Denies rapid heart rate and Denies dyspnea Resp Denies cough and Denies dyspnea GI Denies change in stool character, Denies constipation, Denies diarrhea, Denies nausea and Denies vomiting Denies urinary frequency, Denies dysuria and Denies urinary urgency Neuro Reports Normal hearing present, Denies confusion and Denies syncope Psych Denies confusion Endo Denies fatigue Physical exam (Primary Care) Vital Signs: Last Vital Signs Pulse 90 07/28/23 08:09 BP 108/62 07/28/23 08:09 Pulse Ox 93 07/28/23 08:09 Oxygen Delivery Method Room Air 07/28/23 08:09 BMI result Body Mass Index 31.9 Tobacco/Smoking Status: Tobacco use Status Tobacco use date assessed 07/18/23 07/28/23 08:16 Patient Tobacco Use Status Never used Tobacco 07/28/23 08:16 e-Cigarette/Vaping Use Never Used 07/28/23 08:16 PHQ-9: PHQ-9 Score PHQ-9: Total score 0 07/28/23 08:53 Depression Screening Interpretation: Negative (controlled on her Rx) Thrive Assessment: Date of Thrive Assessment Date Thrive assessed 07/18/23 07/28/23 08:16 Const General: No confusion Orientation/consciousness: No confusion HENMT Head: Yes normocephalic and Yes atraumatic Eyes Conjunctivae: conjunctivae normal Chest Chest palpation & inspection: normal inspection of the chest Resp Effort & Inspection: normal respiratory effort Auscultation: clear to auscultation bilaterally, no crackles, no rhonchi and no wheezes Cardio Rate: regular rate Rhythm: regular rhythm Heart sounds: S1 normal heart sound present and S2 normal heart sound present GI Inspection: Yes normal to inspection Neuro General: No confusion Cranial nerves: Yes Normal hearing present Extrem General: No edema Assessment and Plan Assessment & Plan (1) Pre-op examination: Code(s): Z01.818 - Encounter for other preprocedural examination Plan: Based on above examination review of labs and EKG patient is above average risk to undergo schedule glaucoma surgery. No further workup needed at this time and patient can proceed with scheduled surgery. Patient advised to hold Humalog while NPO and resume insulin following procedure and able to eat. (2) Acquired hypothyroidism: Code(s): E03.9 - Hypothyroidism, unspecified Plan: Continue on levothyroxine. TSH: 0.39 (3) Diabetic 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 type 2 diabetes mellitus: Code(s): E11.319 - Type 2 diabetes mellitus with unspecified diabetic retinopathy without macular edema Qualifiers: Diabetes mellitus macular edema: without macular edema Diabetic retinopathy severity: with moderate nonproliferative retinopathy Laterality: bilateral Qualified Code(s): E11.3393 - Type 2 diabetes mellitus with moderate nonproliferative diabetic retinopathy without macular edema, bilateral Plan: Continue on current medications. Plan Keep scheduled follow-up with PCP or follow-up sooner if needed. Coding Level of Care Code Est Pt Level 4 (48812) Diagnoses Pre-op examination Z01.818 Acquired hypothyroidism E03.9 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 edema associated with type 2 diabetes mellitus E11.3393 Diabetes mellitus macular edema: without macular edema Diabetic retinopathy severity: with moderate nonproliferative retinopathy Laterality: bilateral
== END 2023-07-28 08:44 | disposition home or self-care (01) ==
PROVIDERS: PCP Internal Medicine; Visit Provider Nurse Practitioner Family
DX: Z01.818 Encounter for other preprocedural examination (principal); E03.9 Hypothyroidism, unspecified; E11.3393 Type 2 diabetes mellitus with moderate nonproliferative diabetic retinopathy without macular edema, bilateral
CPT/HCPCS: 99214

== ENCOUNTER 2023-08-05 12:20 | Outpatient (AMB) | payer OTHER, SELFPAY ==
[2023-08-05 12:25] VITALS: BP 123/62; PULSE 86; O2SAT 97; BMI 32.5
--- NOTE | 2023-08-05 12:25 | A.OFFVIS_ITS ---
Intake Vital Signs 08/05/23 12:25 Height 5 ft 1 in Weight 171 lb 15.369 oz BMI 32.5 BP 123/62 Blood Pressure Location Lt brachial Position Sitting Pulse 86 Pulse Source Pulse Oximeter Pulse Oximetry (%) 97 Oxygen Delivery Method Room Air Intake Visit Reasons: s/p colon Dinesh Intake Note: Pt presents to the office today for a s/p colo. Pt states she is feeling well. Pt denies any GI issues. Accompanied by: Daughter Allergies francisco Allergy (Severe, Verified 08/18/23 11:30) Rash Penicillins Allergy (Intermediate, Verified 08/18/23 11:30) RASH/HIVES HPI s/p colon Dinesh HPI Details Assessment & Plan (1) Dizziness: Code(s): R42 - Dizziness and giddiness Plan: [place]ish # daughter translates per patient request Lowering the reglan did NOT effect the dizziness, but it did cause more N/V. Also she has been c/o this since 2019 - well prior to when I started this medication. Review of her chart shows that there was some question of the dizziness being caused by her orthostatic hypotension. The last note from cardiology says she continues on midodrine but I do not see that it has been renewed recently and I wonder if maybe this accidentally fell out of her med box. I have asked her daughter to check on this. Apparently Neurology does not think that this is of neurologic origin. We did discuss that if we can not find a reason it continues to worsen she may wish to seek a 2nd opinion just to get a fresh set of eyes on the problem in terms of a Neurology consult. In the meantime we will increase the Reglan back since she is having more nausea vomiting and since it seems to be worse at noon will give her 2 tablets at noon. Her daughter recognizes the name under the generic and says she is not taking it she has no more. I will send a temp rx for 10mg tid to restore this and to see if this makes a difference. They will monitor her BP at home. Reviewed the labs and there is no indication of the urine tract infection other metabolic abnormality that may be contributing to her dizziness. Return office visit in 2 weeks (2) Nausea and vomiting: Code(s): R11.2 - Nausea with vomiting, unspecified (3) Gastroparesis: Code(s): K31.84 - Gastroparesis (4) Chronic idiopathic constipation: Code(s): K59.04 - Chronic idiopathic constipation (5) GERD (gastroesophageal reflux diseas e): Code(s): K21.9 - Gastro-esophageal reflux disease without esophagitis Qualifiers: Esophagitis presence: without esophagitis Qualified Code(s): K21.9 - Gastro-esophageal reflux disease without esophagitis Medications: New midodrine do no t give last dose o f day after 6PM or within 4 hrs of b edtime 10 mg PO TID 90 t abs 3RF R42 - Dizziness an d giddiness metoclopramide HCl (Reglan) 1 tab qbreadfast, 2 qnoon, 1 q supp er, 1qhs orally 4 times a day before meal/bed; 150 ta bs 6RF K31.84 - Gastropar esis Discontinued metoclopramide HCl (Reglan) Disco ntinued Reason: D octor's Order 5 mg PO QIDACHS 1 20 tabs 6RF COLONOSCOPY 07/22/23 Findings: Mucosa: Normal to cecum and terminal ileum. Protruding lesions: * 1 sessile polyp of size 2 mm in cecum. Cold forceps polypectomy was performed. The polyp was completely removed and retrieved. * Large internal hemorrhoids without stigmata of recent bleeding. Excavated lesions: * Medium diverticulosis of left side of the colon. Impression: 1. Normal colon and terminal ileum mucos a 2. Total of 1 polyp removed 3. External and internal hemorrhoids 4. Diverticulosis Recommendations: - Follow path results. - Repeat colonoscopy for asymptomatic co lorectal cancer screening in 7-10 years if in good health. BIOPSY Received: 07/22/23 Diagnosis Colon, cecal polyp: Tubular adenoma; negative for high-grade dysplasia and carcinoma CORRESPONDENCE On 07/22/23 @ 11:02 Radha Leija Wrote To Radha Leija (2) Ok, .I will see her and discuss this on 08/05 On 07/22/23 @ 10:55 Elva Stephens Wrote To Radha Leija I spoke w/ daughter who states they already trialed the 5mg dose and patients blood sugar was still below 35. On 07/21/23 @ 14:39 Radha Leija Wrote To Elva Stephens Rather than stopping it altogether, advised her to try cutting the tablets in half and see if the 5 mg dose is better. On 07/17/23 @ 15:02 Danni Winter Wrote To Radha Leija Mary patient daughter called to let you know that Reglan is affecting her mom sugar level and they are coming down. Patient stop medication. [phone] TODAY'S VISIT [place] #dtr translates per pt The procedure should be repeated in 5 years if her health permits. The procedure was well tolerated. The results were explained and the patient is agreeable to the follow-up interval as stated. The bowel pattern has returned to normal. Education was provided to tell any 1st degree relatives about their findings to be sure that they are screened by age 45. Educated that they will be put on a recall list when it is time for their repeat scope but should they move out of state or away from the hospital they will need to remember along w ith their primary to repeat the procedure in a timely fashion to avoid any adverse 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s. Despite multiple attempts she could not tolerate the Reglan, they seem to feel it makes her sugar go up. We will discontinue it and she is counseled to eat smaller more frequent meals and will try to keep this system moving from below with the constipation medications. With this in mind she continues on her Trulance and bisacodyl, magnesium oxide, fiber therapy, pantoprazole 40 mg twice a day, and simethicone. She is prescribed Zofran through her primary care provider. She does have many other medications that are probably contributing to her gastric motility problems including Trulicity,. Seroquel, this Zofran, scopolamine patches hydroxy seen. Because she does not know what happened with the midodrine added back in and I will give a courtesy prescription and will see if this improves both her dizziness and her nausea and vomiting the reporting. If it does I will ask him to go back to the regional prescriber and have them maintain the dose. I am not sure if this was intentional or just an omission because of missed appointments. It could be noted that Seroquel also causes orthostatic hypotension as a potential adverse event. As always, I try to keep patient on their diabetic medications but I do question the use of medications such as Trulicity for patient who has gastroparesis and establish nausea and vomiting is a chronic problem. This should be seriously considered by the prescriber. Return office visit in 6 months. 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 Diabetic neuropathy Insomnia Glaucoma Migraine Acquired hypothyroidism Hearing impairment COVID-19 vaccine administered CVA (cerebral vascular accident) Blind left eye Localized swelling, mass and lump, neck Urinary tract infection with pyuria Elevated LFTs Elevated liver enzymes Depression Anxiety Urinary incontinence in female Osteoarthritis Lumbar spondylosis Pure hypercholesterolemia Type 2 diabetes mellitus with diabetic polyneuropathy Pain of right thumb Allergic rhinitis Hypertension Obesity (BMI 30-39.9) Vitamin D deficiency Dyslipidemia Diabetic 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 type 2 diabetes mellitus [facility] (current) use of insulin Dizziness and giddiness Orthostatic hypotension Surgical History History of carpal tunnel release History of pubovaginal sling Hx of eye surgery Hx of cystoscopy Hx of hysterectomy Hx of cholecystectomy History of esophagogastroduodenoscopy (EGD) Hx of colonoscopy Family History Father Diabetes Mother Heart problem Brother Diabetes Social History Housing: Apartment Are you a primary post acute care registered nurse to a significant other at home: No Do you presently have visiting nurse or other home services: Yes Alcohol intake: never Patient Tobacco Use Status: Never used Tobacco e-Cigarette/Vaping Use: Never Used Second Hand Smoke Exposure: No service: No Current occupational status: disabled Gender identity: Female Cognitive needs: Yes Hearing needs: No Vision needs: Yes Female Reproductive History Menstrual Age of Menarche: 10 Review of Systems Const Denies fatigue, Denies fever(s), Denies night sweats, Reports poor appetite and Denies weight loss Eyes Details: glasses Reports requires corrective lenses ENT Reports Normal hearing present, Denies dental pain, Denies dysphagia, Denies hearing loss, Denies mouth pain, Denies odynophagia, Denies throat swelling, Denies tongue swelling and Reports other (Dentition adequate) Card Reports syncope Resp Reports no additional complaints GI Reports abdominal pain, Denies melena, Reports bloating, Denies hematochezia, Reports constipation, Denies GI cramping, Denies dysphagia, Denies excessive flatus, Reports early satiety, Reports heartburn, Denies diarrhea, Reports naus ea, Denies odynophagia, Reports vomiting and Denies hematemesis Skin/Breast Denies pruritus, Denies lesions, Denies rash and Denies jaundice Neuro Reports Normal hearing present, Denies Abnormal speech present and Reports syncope Endo Denies fatigue Aller/Immun Denies throat swelling and Denies tongue swelling Physical Exam Vital Signs: Last Vital Signs Pulse 86 08/05/23 12:25 BP 123/62 08/05/23 12:25 Pulse Ox 97 08/05/23 12:25 Oxygen Delivery Method Room Air 08/05/23 12:25 BMI result Body Mass Index 32.5 Const General: cooperative, no acute distress, well developed and well groomed Nutritional Appearance: well nourished and obese Orientation/consciousness: oriented to person, oriented to place and oriented to time Limitations: language barrier and ambulation with cane HEENT Head: Yes normocephalic and Yes atraumatic Eyes General: appearance normal, both eyes and all related structures Pupils: Equal, round and reactive pupils present Neck Neck: Yes normal visual inspection and Yes no lymphadenopathy Thyroid: Thyroid normal Resp Effort & Inspection: normal respiratory effort and able to speak in complete sentences Auscultation: clear to auscultation bilaterally Cardio Rate: regular rate Rhythm: regular rhythm Heart sounds: Normal, physiologic split S2 sound present Peripheral pulses: radial pulses present and posterior tibial pulses present GI Inspection: No distended, Yes Abdominal panniculus present and Yes obesity Palpation (GI): Soft to palpation, nontender, no guarding, not rigid and No hepatosplenomegaly present Percussion: Yes normal to percussion Auscultation: normal bowel sounds Rectal Exam - Female: deferred Skin General skin exam: no rashes or lesions noted, turgor normal, skin not dry, no jaundice, No spider nevi and no striae Rashes: no rashes Nails: normal Neuro General: oriented to person, oriented to place and oriented to time Cranial nerves: Yes Equal, round and reactive pupils present and Yes Normal hearing present Speech: No Abnormal speech present Extrem General: Yes normal to inspection, No clubbing, No cyanosis and No edema Psych Appearance: grossly normal and well kempt Mental Status: mental status grossly normal Speech and movement: Normal speech and movement present Affect: normal affect Attitude: cooperative Thought process: Normal thought process present and not confabulating Thought content: Normal thought content present Insight: Limited insight present (Psych) Judgement: Limited judgement present (Psych) Results Reviewed Results Reviewed: COLONOSCOPY 07/22/23 Findings: Mucosa: Normal to cecum and terminal ileum. Protruding lesions: * 1 sessile polyp of size 2 mm in cecum. Cold forceps polypectomy was performed. The polyp was completely removed and retrieved. * Large internal hemorrhoids without stigmata of recent bleeding. Excavated lesions: * Medium diverticulosis of left side of the colon. Impression: 1. Normal colon and terminal ileum mucosa 2. Total of 1 polyp removed 3. External and internal hemorrhoids 4. Diverticulosis Recommendations: - Follow path results. - Repeat colonoscopy for asymptomatic colorectal cancer screening in 7-10 years if in good health. BIOPSY Received: 07/22/23 Diagnosis Colon, cecal polyp: Tubular adenoma; negative for high-grade dysplasia and carcinoma Assessment & Plan Assessment & Plan (1) Gastroparesis: Comment: Trulicity in other medications are likely contributing to this and her chronic nausea and vomiting Code(s): K31.84 - Gastroparesis Plan: [place] #dtr translates per pt The procedure should be repeated in 5 years if her health permits. The procedure was well tolerated. The results were explained and the patient is agreeable to the follow-up interval as stated. The bowel pattern has returned to normal. Education was provided to tell any 1st degree relatives about their findings to be sure that they are screened by age 45. Educated that they will be put on a recall list when it is time for their repeat scope but should they move out of state or away from the hospital they will need to remember along with their primary to repeat the procedure in a timely fashion to avoid any adverse 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s. Despite multiple attempts she could not tolerate the Reglan, they seem to feel it makes her sugar go up. We will discontinue it and she is counseled to eat smaller more frequent meals and will try to keep this system moving from below with the constipation medications. With this in mind she continues on her Trulance and bisacodyl, magnesium oxide, fiber therapy, pantoprazole 40 mg twice a day, and simethicone. She is prescribed Zofran through her primary care prov ider. She does have many other medications that are probably contributing to her gastric motility problems including Trulicity,. Seroquel, this Zofran, scopolamine patches hydroxy seen. Because she does not know what happened with the midodrine added back in and I will give a courtesy prescription and will see if this improves both her dizziness and her nausea and vomiting the reporting. If it does I will ask him to go back to the regional prescriber and have them maintain the dose. I am not sure if this was intentional or just an omission because of missed appointments. It could be noted that Seroquel also causes orthostatic hypotension as a potential adverse event. As always, I try to keep patient on their diabetic medications but I do question the use of medications such as Trulicity for patient who has gastroparesis and establish nausea and vomiting is a chronic problem. This should be seriously considered by the prescriber. Return office visit in 6 months. (2) Chronic idiopathic constipation: Code(s): K59.04 - Chronic idiopathic constipation (3) GERD (gastroesophageal reflux disease): Code(s): K21.9 - Gastro-esophageal reflux disease without esophagitis Qualifiers: Esophagitis presence: without esophagitis Qualified Code(s): K21.9 - Gastro-esophageal reflux disease without esophagitis (4) Tubular adenoma of colon: Comment: 2022 scope= TA repeat 5 years Code(s): D12.6 - Benign neoplasm of colon, unspecified Medications: Refilled simethicone (Anti-Gas Ultra Strength) 180 mg PO QID 120 caps 5RF pantoprazole 40 mg PO BID 180 tabs 2RF midodrine do not give last dose of day after 6PM or within 4 hrs of bedtime 10 mg PO TID 90 tabs 3RF R42 - Dizziness and giddiness plecanatide (Trulance) 3 mg PO DAILY 30 tabs 6RF K59.04 - Chronic idiopathic constipation Discontinued metoclopramide HCl Discontinued Reason: Patient Refused 5 mg PO QID 120 tabs 6RF K31.84 - Gastroparesis Coding Level of Care Code Est Pt Level 4 (57937) Diagnoses Gastroparesis K31.84 Chronic idiopathic constipation K59.04 Gastroesophageal reflux disease without esophagitis K21.9 Esophagitis presence: without esophagitis Tubular adenoma of colon D12.6
== END 2023-08-05 12:47 | disposition home or self-care (01) ==
PROVIDERS: PCP Internal Medicine; Visit Provider Nurse Practitioner
DX: K31.84 Gastroparesis (principal); K59.04 Chronic idiopathic constipation; K21.9 Gastro-esophageal reflux disease without esophagitis; D12.6 Benign neoplasm of colon, unspecified
CPT/HCPCS: 99214

== ENCOUNTER → 2023-08-05 12:20 | Outpatient (BNVA) | payer OTHER, SELFPAY | PROVIDERS: PCP Internal Medicine; Visit Provider Nurse Practitioner | DX: K21.9 Gastro-esophageal reflux disease without esophagitis (principal); K59.04 Chronic idiopathic constipation; K31.84 Gastroparesis; D12.6 Benign neoplasm of colon, unspecified | CPT/HCPCS: 99212 ==

== ENCOUNTER 2023-08-13 11:42 | Outpatient (AMB) | payer OTHER, SELFPAY ==
[2023-08-13 11:43] VITALS: BP 140/82; PULSE 89; BMI 32.9
--- NOTE | 2023-08-13 11:43 | A.OFFVIS_ITS ---
Intake Vital Signs 08/13/23 11:43 Height 5 ft 1 in Weight 174 lb 2.643 oz BMI 32.9 BP 140/82 H Blood Pressure Location Lt brachial Position Sitting Pulse 89 Pulse Source Pulse Oximeter Intake Visit Reasons: f/u Type 2 DM Intake Note: Patient present today to follow up on Type 2 Diabetes Mellitus. Last Diabetic Eye exam: April 2023 Last Podiatry Visit: None Random Glucose: 92 mg/dl HgA1C: 6.0% 07/18/2023 Fish Filleter Required: No Accompanied by: Daughter Allergies francisco Allergy (Severe, Verified 08/13/23 11:54) Rash Penicillins Allergy (Intermediate, Verified 08/13/23 11:54) RASH/HIVES HPI HPI Comments History of Present Illness Details Patient is 68 year old female with DM type 2 diagnosed 2002 who presents for management of diabetes. Past medical history:DM2 GERD, depression, hypertension, hyperlipidemia, hypothyroidism. Micro and macrovascular 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s: + neuropathy, +background retinopathy, + nephropathy + microalbumin, no macrovascular disease. Symptoms reported: occasional numbness, tingling, cramping in lower extremities Hypoglycemia: reports hypoglycemia occasionally when does not eat everything that had planned to eat Hyperglycemia: denies urinary frequency, nocturia, polydypsia Continuous glucose monitoring:The last 2 weeks average blood glucose 155 Less than 1% low or very. 65% in target range of 70-180. 31% high, 3% very high. GM I 6.9 % No hypoglycemia -had pior after initiation of GI med Humalog via ominipod pump Her total daily insulin use is 40 units in 24 hour Basal 87% Bolus 14 % Her daily average carbohydrate intake is Pump settings Basal rate(s) (units/hour) : ?12 AM to 10 AM 1.5 units / hr 10AM to 12 AM? 1.25 units / hr Bolus setting Insulin Carbohydrate Ratio (s) 12 AM to 12 AM 1:9 Correction Factor / Sensitivity Factor 12 AM? to 12 AM 1:40 Active Insulin Time:? 4 hours Target(s): ?12 AM? to 12 PM? 120 mg/dL Correct above 120 mg/dL Also on Trulicity 1.5 mg q.week Exercise: limited due to balance issues Nutrition - diabetes education: currently sees [facility] [employer]: goes regularly Last ophthalmology evaluation: laser treatment in both eyes in 2020- had surgery this morning Complain of some left lower back pain Laboratory Tests 12/27/21 12/27/21 12/27/21 09:34 09:41 09:41 Creatinine 0.83 Estimated GFR > 60 Hemoglobin A1c % 6.2 Triglycerides 103 Cholesterol 121 LDL Cholesterol, C alc 54 HDL Cholesterol 47 25-OH Vitamin D To asim 37.1 TSH 1.26 Free T4 1.01 Microalb/Creat Rat io 22.8 PFSH Medical History Chronic pain syndrome Dementia 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 Diabetic neuropathy Insomnia Glaucoma Migraine Acquired hypothyroidism Hearing impairment COVID-19 vaccine administered CVA (cerebral vascular accident) Blind left eye Localized swelling, mass and lump, neck Urinary tract infection with pyuria Elevated LFTs Elevated liver enzymes Depression Anxiety Urinary incontinence in female Osteoarthritis Lumbar spondylosis Pure hypercholesterolemia Type 2 diabetes mellitus with diabetic polyneuropathy Pain of right thumb Allergic rhinitis Hypertension Obesity (BMI 30-39.9) Vitamin D deficiency Dyslipidemia Diabetic 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 type 2 diabetes mellitus long term acute care registered nurse (current) use of insulin Dizziness and giddiness Orthostatic hypotension Surgical History History of carpal tunnel release History of pubovaginal sling Hx of eye surgery Hx of cystoscopy Hx of hysterectomy Hx of cholecystectomy History of esophagogastroduodenoscopy (EGD) Hx of colonoscopy Family History Father Diabetes Mother Heart problem Brother Diabetes Social History Housing: Apartment Are you a primary assistant child care teacher to a significant other at home: No Do you presently have visiting nurse or other home services: Yes Alcohol intake: never Patient Tobacco Use Status: Never used Tobacco e-Cigarette/Vaping Use: Never Used Second Hand Smoke Exposure: No service: No Current occupational status: disabled Gender identity: Female Cognitive needs: Yes Hearing needs: No Vision needs: Yes Female Reproductive History Menstrual Age of Menarche: 10 Physical Exam Absence of Cushingoid features. Absence of acromegalic features. Neck exam reveals nl size thyroid about 15 gms. No thyroid nodules palpable. No carotid bruits present. Lungs CTA. Heart S1 S2, Reg R/R. No M/R/ G. Skin exam reveals absence of vitiligo or acanthosis nigricans. Abdominal exam reveals Soft NT/ND with NA BS. No organomegaly present. Neck Other: . Extrem Other: Visual exam of foot performed. No ulcerations or open lesions. No onchomycosis, no callouses.Pulses 2 + distally. 2+ edema present lower extremities. Sensation intact to monofilament exam. Vibratory sensation sensed is decreased t with 128 Hz tuning fork Assessment & Plan Assessment & Plan (1) Diabetes type 2, uncontrolled: Code(s): E11.65 - Type 2 diabetes mellitus with hyperglycemia Qualifiers: Glycemic state: with hyperglycemia Qualified Code(s): E11.65 - Type 2 diabetes mellitus with hyperglycemia Plan: This is a 67-year-old female with history of type 2 diabetes being managed with an Omnipod 5 pump and Dexcom sensor and Trulicity with excellent improved glycemic control and known microvascular 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s namely retinopathy and neuropathy. Plan is to continue the current therapy with the Omnipod 5.. Medications: Refilled insulin glargine (Lantus Solostar U-100 Insulin) 33 units (0.33 mL) subcut DAILY 15 mL 5RF Coding Level of Care Code Est Pt Level 4 (10306) Diagnoses Uncontrolled type 2 diabetes mellitus with hyperglycemia E11.65 Glycemic state: with hyperglycemia
[2023-08-13 11:57] LABS: Glucose, Whole Blood 92 mg/dL (60-115)
== END 2023-08-13 12:06 | disposition home or self-care (01) ==
PROVIDERS: PCP Internal Medicine; Visit Provider Internal Medicine Endocrinology, Diabetes & Metabolism
DX: E11.65 Type 2 diabetes mellitus with hyperglycemia (principal)
CPT/HCPCS: 99214

== ENCOUNTER → 2023-08-13 11:42 | Outpatient (BNVA) | payer OTHER, SELFPAY | PROVIDERS: PCP Internal Medicine; Visit Provider Internal Medicine Endocrinology, Diabetes & Metabolism | DX: E11.65 Type 2 diabetes mellitus with hyperglycemia (principal); Z96.41 Presence of insulin pump (external) (internal) | CPT/HCPCS: 82947; 99212 ==

== ENCOUNTER 2023-08-18 11:04 | Outpatient (AMB) | payer OTHER, SELFPAY ==
[2023-08-18 11:06] VITALS: BP 110/80; PULSE 103; O2SAT 95; BMI 32.2
--- NOTE | 2023-08-18 11:06 | A.OFFPC_ITS ---
Vital Signs 08/18/23 11:06 Height 5 ft 1 in Weight 170 lb 4 oz BMI 32.2 BP 110/80 Blood Pressure Location Lt brachial Position Sitting Pulse 103 H Pulse Source Pulse Oximeter Pulse Oximetry (%) 95 Oxygen Delivery Method Room Air Intake Visit Reasons: DM, hyperlipidemia, hypothyroidism, HTN Film Reproducer Required: No Accompanied by: Self / Same As Patient Allergies francisco Allergy (Severe, Verified 08/18/23 11:30) Rash Penicillins Allergy (Intermediate, Verified 08/18/23 11:30) RASH/HIVES Medication List - Last Reconciled 08/18/23 by Elijah Hunter MD [DDisposable Underwear Heavy Absorbency Large (2) - Personal As directed] [Disposable Underpad 30 x 30 Heavy Flow As directed] [ADULT DIAPERS/BRIEFS As directed] aspirin 81 mg PO DAILY betamethasone dipropionate 0.05% 1 appl topical DAILY bisacodyl (Laxative (bisacodyl)) 10 mg (2 x 5 mg) PO BEDTIME blood sugar diagnostic (FreeStyle Lite Strips) 5 times a day blood-glucose meter,continuous (Dexcom G7 Manager Icu) As directed blood-glucose sensor (Dexcom G7 Sensor device) As directed blood-glucose transmitter (Dexcom G6 Transmitter device) As directed cholecalciferol (vitamin D3) 125 mcg PO DAILY clonazepam 1 mg PO BEDTIME compr.stocking,knee,long,large As directed diaper,brief,adult,disposable (Overnight Underwear Large) As directed PULL UPS donepezil 10 mg PO BEDTIME dorzolamide-timolol (PF) 2-0.5 % 1 drp ophthalmic (eye) BID dorzolamide-timolol 22.3-6.8 mg/mL 1 drp ophthalmic (eye) BID dulaglutide (Trulicity) 1.5 mg (0.5 mL) subcut QWEEK fluoxetine 20 mg PO BID fluticasone propionate 50 mcg/actuation 2 sprays intranasal DAILY PRN gabapentin 300 mg PO TID 30 days galcanezumab-gnlm (Emgality Pen) 120 mg subcut QMONTH hydroxyzine HCl 25 mg PO TID PRN insulin glargine (Lantus Solostar U-100 Insulin) 33 units (0.33 mL) subcut DAILY insulin lispro (Humalog U-100 Insulin) 0 - 76 units (0 - 0.76 mL) subcut DAILY insulin pump cart,cont inf,BT (Omnipod Dash Pods (Gen 4) subcutaneous cartridge) USE 2 EA SUBCUTANEOUSLY EVERY 3 DAYS FOR 30 DAYS 2 BOXES PF 10 PODS CHANGE EVERY 3 DAYS insulin pump cart,cont inf,BT (Omnipod Dash Pods (Gen 4) subcutaneous cartridge) DIRECTED insulin pump cartridge 2 ea subcut Q3D 30 days NS levothyroxine 125 mcg PO QAM magnesium oxide 400 mg PO BEDTIME melatonin 6 mg PO BEDTIME PRN methylcellulose (laxative) (Fiber Therapy (methylcellulose)) 1,000 mg (2 x 500 mg) PO DAILY PRN midodrine 10 mg PO TID mirabegron ER (Myrbetriq) 50 mg PO DAILY mirtazapine 30 mg PO QPM miscellaneous medical supply Wipes miscellaneous; 100 wipebox/ 3 boxes ondansetron 4 mg PO Q8H PRN 15 days pantoprazole 40 mg PO BID pen needle, diabetic (Comfort EZ Pen [place]) As directed injects 4 times a day [Personal Cleansing Wipes (2) As directed] plecanatide (Trulance) 3 mg PO DAILY prednisolone acetate 1% 1 drp ophthalmic (eye) QID quetiapine 75 mg PO BEDTIME rosuvastatin 40 mg PO DAILY scopolamine base 1 patch transdermal Q3D PRN simethicone (Anti-Gas Ultra Strength) 180 mg PO QID [UNDERPADS As directed] Tobacco use date assessed: 08/18/23 Fall risk assessment: No Falls in past year Last assessed Fall Risk: 08/18/23 Dental Screening Dental Screen Date: 08/18/23 Did you have a dental visit in the last 12 months?: No Did you have a dental problem in the last 6 months where you did not have access to dental care?: No Was dental information given to patient?: No HPI DM, hyperlipidemia, hypothyroidism, HTN HPI Details Patient comes in today for her follow up visit States that she feels okay She denies any headaches or dizziness Denies any chest pains, no increased SOB No nausea/vomiting, no abdominal pain No change in bowel habits noted Had her follow up labs done last month - to discuss her results Just had her eye surgery done on her left eye a couple of weeks ago for her glaucoma and is currently on 2 new eyedrops - med list updated FOR[facility]LY [facility] Medical History Chronic pain syndrome Dementia 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 Diabetic neuropathy Insomnia Glaucoma Migraine Acquired hypothyroidism Hearing impairment COVID-19 vaccine administered CVA (cerebral vascular accident) Blind left eye Localized swelling, mass and lump, neck Urinary tract infection with pyuria Elevated LFTs Elevated liver enzymes Depression Anxiety Urinary incontinence in female Osteoarthritis Lumbar spondylosis Pure hypercholesterolemia Type 2 diabetes mellitus with diabetic polyneuropathy Pain of right thumb Allergic rhinitis Hypertension Obesity (BMI 30-39.9) Vitamin D deficiency Dyslipidemia Diabetic 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 type 2 diabetes mellitus assisted (current) use of insulin Dizziness and giddiness Orthostatic hypotension Surgical History History of carpal tunnel release History of pubovaginal sling Hx of eye surgery Hx of cystoscopy Hx of hysterectomy Hx of cholecystectomy History of esophagogastroduodenoscopy (EGD) Hx of colonoscopy Family History Father Diabetes Mother Heart problem Brother Diabetes Social History Housing: Apartment Are you a primary physician primary care sports medicine to a significant other at home: No Do you presently have visiting nurse or other home services: Yes Alcohol intake: never Patient Tobacco Use Status: Never used Tobacco e-Cigarette/Vaping Use: Never Used Second Hand Smoke Exposure: No service: No Current occupational status: disabled Gender identity: Female Cognitive needs: Yes Hearing needs: No Vision needs: Yes Female Reproductive History Menstrual Age of Menarche: 10 Questionnaire PHQ-9 Over the last 2 weeks, how often have you been bothered by any of the following problems? 1. Little interest or pleasure in doing things: not at all 2. Feeling down, depressed, or hopeless: not at all 3. Trouble falling or staying asleep, or sleeping too much: not at all 4. Feeling tired or having little energy: not at all 5. Poor appetite or overeating: not at all 6. Feeling bad about yourself - or that you are a failure or have let yourself or your family down: not at all 7. Trouble concentrating on things, such as reading the newspaper or watching television: not at all 8. Moving or speaking so slowly that other people could have noticed. Or the opposite - being so fidgety or restless that you have been moving around a lot more than usual: not at all 9. Thoughts that you would be better off or of hurting yourself in some way: not at all Total score: 0 Depression Screening Interpretation: Negative (controlled on her Rx) Depression Screening Done: Yes 37603 - PHQ-9 Billing: Yes Source: Developed by Drs. Neil Wayne, Lakisha Bell, Latrell Serra and colleagues, with an educational sophie from [employer]. Thrive Questionnaire Date Thrive assessed: 08/18/23 I am a: Patient What is your living situation today?: I have a steady place to live Within the past 12 months, did the food you bought not last and you didn't have the money to get more?: Never true Within the past 12 months, did you worry whether your food would run out before you got money to buy more?: Never true Do you have trouble paying for medicines?: No Do you have trouble getting transportation to medical appointments?: No Do you have trouble paying your heating and electricity bill?: No Do you have trouble taking care of your child, family member or friend?: No Do you have trouble with day-to-day activities such as bathing, preparing meals, shopping, managing finances, etc.?: No Are you currently unemployed and looking for a job?: No Are you interested in more education?: No Please select the resources that you would like help with: None Currently or been in a relationship where the following occur: no concerns reported AUDIT C Alcohol Use Questionnaire (AUDIT-C) 1. How often do you have a drink containing alcohol?: Never 3. How often do you have six or more drinks on one occasion?: Never Total Score: 0 Score Reviewed/Action Taken: Yes REJI-7 AMB Questionnaire REJI-7 Date REJI - 7 assessed: 08/18/23 Feeling nervous, anxious, or on edge: 0 = Not at all Not being able to stop or control worryin = Not at all Worrying too much about different things: 0 = Not at all Trouble relaxin = Not at all Being so restless that it is hard to sit still: 0 = Not at all Becoming easily annoyed or irritable: 0 = Not at all Feeling afraid as if something awful might happen: 0 = Not at all Total REJI-7 score (0-4 normal; 5-9 mild; 10-14 moderate; 15-21 severe): 0 Source: Developed by Drs. Neil Wayne, Lakisha Bell, Latrell Serra and colleagues, with an educational sophie from [employer]. Review of Systems Const Denies chills, Reports fatigue, Denies fever(s) and Denies headache(s) (controlled on current Rx) Eyes Reports eye pain (in left eye - s/p surgery a couple of weeks ago) ENT Denies dysphagia, Denies otalgia, Denies headache(s) (controlled on current Rx), Reports neck pain (chronic), Denies odynophagia and Denies sore throat Card Denies chest pain, Denies palpitations and Reports dyspnea on exertion (mild) Resp Denies cough, Reports dyspnea on exertion (mild) and Denies wheezing GI Reports abdominal pain (diffusely over the upper abdomen), Reports bloating, Reports constipation (chronic - currently controlled on Rx), Denies dysphagia, Denies heartburn, Denies diarrhea, Reports nausea, Denies odynophagia and Reports vomiting Denies hematuria, Denies difficulty voiding, Reports nocturia, Denies dysuria and Reports urinary incontinence Musc Reports neck pain (chronic) Skin/Breast Denies rash Neuro Denies behavioral changes, Denies headache(s) (controlled on current Rx), Reports memory loss and Denies tremor(s) Psych Denies behavioral changes, Reports memory loss and Denies mood swings Endo Reports fatigue and Denies palpitations Aller/Immun Denies wheezing Physical exam (Primary Care) Vital Signs: Last Vital Signs Pulse 103 H 08/18/23 11:06 BP 110/80 08/18/23 11:06 Pulse Ox 95 08/18/23 11:06 Oxygen Delivery Method Room Air 08/18/23 11:06 BMI result Body Mass Index 32.2 Tobacco/Smoking Status: Tobacco use Status Tobacco use date assessed 08/18/23 08/18/23 11:08 Patient Tobacco Use Status Never used Tobacco 08/18/23 11:08 e-Cigarette/Vaping Use Never Used 08/18/23 11:08 PHQ-9: PHQ-9 Score PHQ-9: Total score 0 08/18/23 11:13 Depression Screening Interpretation: Negative (controlled on her Rx) Thrive Assessment: Date of Thrive Assessment Date Thrive assessed 08/18/23 08/18/23 11:08 Currently or been in a relationship where the following occur: no concerns reported Const General: no acute distress and alert HENMT Ears: TM's normal bilaterally and EAC's normal Throat: Yes posterior oropharynx normal and Yes tonsils normal (no TP congestion) Neck Neck: Yes no lymphadenopathy and Yes supple Resp Auscultation: clear to auscultation bilaterally, no rales and no wheezes Cardio Rate: regular rate Rhythm: regular rhythm Heart sounds: no murmurs GI Palpation (GI): Soft to palpation and nontender Auscultation: normal bowel sounds Back/Spine/Pelvis Cervical Spine: Cervical spine tenderness Extrem General: Yes no clubbing, cyanosis or edema Results Reviewed Results Reviewed: Laboratory Tests 07/18/23 07/18/23 07/18/23 11:39 11:46 11:46 WBC 5.2 Hgb 13.8 Hct 41.7 Plt Count 151 L D Sodium 141 Potassium 4.8 Creatinine 0.81 Estimated GFR > 60 Glucose (Clinic) Fasting Glucose 124 H Hemoglobin A1c % 6.0 Calcium 9.9 AST 35 H ALT 28 Triglycerides 94 Cholesterol 109 LDL Cholesterol, Calc 39 HDL Cholesterol 52 Vitamin B12 25-OH Vitamin D Total TSH Free T4 1.04 Ur Specific [place] 1.010 Urine Protein Negative Urine Glucose (UA) Negative Urine Blood Negative Microalb/Creat Ratio 32.4 H 07/18/23 08/13/23 11:46 11:53 WBC Hgb Hct Plt Count Sodium Potassium Creatinine Estimated GFR Glucose (Clinic) 92 Fasting Glucose Hemoglobin A1c % Calcium AST ALT Triglycerides Cholesterol LDL Cholesterol, Calc HDL Cholesterol Vitamin B12 412 25-OH Vitamin D Total 47.7 TSH 0.39 Free T4 Ur Specific [place] Urine Protein Urine Glucose (UA) Urine Blood Microalb/Creat Ratio Assessment and Plan Assessment & Plan (1) Type 2 diabetes mellitus with diabetic polyneuropathy: Comment: insulin pump-average glucose 166/last A1C 6.2% Code(s): E11.42 - Type 2 diabetes mellitus with diabetic polyneuropathy Qualifiers: Diabetes mellitus salvage determiner insulin use: with prison use Qualified Code(s): E11.42 - Type 2 diabetes mellitus with diabetic polyneuropathy; 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 Velazquez) as scheduled (2) Diabetic 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 type 2 diabetes mellitus: Code(s): E11.319 - Type 2 diabetes mellitus with unspecified diabetic retinopathy without macular edema Qualifiers: Diabetic retinopathy severity: with moderate nonproliferative retinopathy Diabetes mellitus macular edema: without macular edema Laterality: bilateral Qualified Code(s): E11.3393 - Type 2 diabetes mellitus with moderate nonproliferative diabetic retinopathy without macular edema, bilateral Plan: Reinforced strict diabetes control to help slow down disease progression Follow up with ophthalmology as scheduled (3) Pure hypercholesterolemia: Code(s): E78.00 - Pure hypercholesterolemia, unspecified Plan: Results of her labs done last month reviewed and discussed with patient Reinforced low cholesterol diet Continue Rosuvastatin 40 mg QD Will recheck her labs and fasting lipids in 3 months for follow up (4) Dementia: Code(s): F03.90 - Unspecified dementia, unspecified severity, without behavioral disturbance, psychotic disturbance, mood disturbance, and anxiety Qualifiers: Dementia type: unspecified type Dementia behavioral disturbance: without behavioral disturbance Qualified Code(s): F03.90 - Unspecified dementia without behavioral disturbance Plan: Continue Donepezil 10 mg QD Follow up with neurology as scheduled (5) Migraine: Code(s): G43.909 - Migraine, unspecified, not intractable, without status migrainosus Qualifiers: Migraine type: unspecified Status migrainosus presence: without status migrainosus Intractability: not intractable Qualified Code(s): G43.909 - Migraine, unspecified, not intractable, without status migrainosus Plan: Continue Emgality 120 mg injection once a month - headaches have been better controlled on her current Rx Follow up with neurology as scheduled (6) GERD (gastroesophageal reflux disease): Code(s): K21.9 - Gastro-esophageal reflux disease without esophagitis Qualifiers: Esophagitis presence: without esophagitis Qualified Code(s): K21.9 - Gastro-esophageal reflux disease without esophagitis Plan: Dietary restrictions reinforced Continue Pantoprazole 40 mg BID and Simethicone 100 mg QID PRN (7) Chronic idiopathic constipation: Code(s): K59.04 - Chronic idiopathic constipation Plan: Encouraged again increased oral fluids and dietary fiber Continue Trulance 3 mg QD, Fiber Therapy 1000 mg QD, Colace 100 mg QD PRN and Bisacodyl 10 mg Q HS PRN Follow up with GI as scheduled (8) Elevated LFTs: Code(s): R79.89 - Other specified abnormal findings of blood chemistry Plan: Improving; her LFTs are mostly back to normal on her recent labs - was most likely related to her weight Will continue to monitor her labs and LFTs regularly (9) Acquired hypothyroidism: Code(s): E03.9 - Hypothyroidism, unspecified Plan: TFTs were normal on her recent labs Continue Levothyroxine 125 mcg QD (10) Allergic rhinitis: Code(s): J30.9 - Allergic rhinitis, unspecified Qualifiers: Allergic rhinitis trigger: unspecified Allergic rhinitis seasonality: unspecified Qualified Code(s): J30.9 - Allergic rhinitis, unspecified Plan: Continue Fluticasone 50 mcg nasal spray QD PRN (11) Diffuse idiopathic skeletal hyperostosis of cervical spine: Code(s): M48.12 - Ankylosing hyperostosis [[place]], cervical region Plan: Cervical spine CT done back in 2019 revealed (+) diffuse idiopathic skeletal hyperostosis Was on Tramadol 50 mg Q HS PRN although she has not taken this in a while now as it was not helping Is currently doing better on Gabapentin 300 mg TID Follow up with pain management as scheduled (12) Lumbar spondylosis: Code(s): M47.816 - Spondylosis without myelopathy or radiculopathy, lumbar region Plan: Reinforced activity and weight-lifting restrictions Gabapentin is also helping with her low back pain (13) Osteoarthritis: Code(s): M19.90 - Unspecified osteoarthritis, unspecified site Qualifiers: Osteoarthritis location: multiple joints Osteoarthritis type: primary Qualified Code(s): M89.49 - Other hypertrophic osteoarthropathy, multiple sites Plan: Involving multiple joints Has been using OTC pain patches PRN and OTC Tylenol PRN although she has been cautioned against taking too much Tylenol due to her slightly elevated LFTs in the past Will consider referral to orthopedics if her joint symptoms get worse (14) Overactive bladder: Code(s): N32.81 - Overactive bladder Plan: Continue Oxybutynin ER 10 mg QD; has failed multiple other Rx and urology is reportedly now considering injecting Botox into her urinary bladder muscles to help control her symptoms better if Rx are no longer helping Continue Mybetriq ER 50 mg QD Follow up with urology as scheduled (15) Vitamin D deficiency: Code(s): E55.9 - Vitamin D deficiency, unspecified Plan: Corrected - continue Vitamin D3 125 mcg QD (16) Glaucoma: Code(s): H40.9 - Unspecified glaucoma Qualifiers: Glaucoma type: unspecified Laterality: bilateral Qualified Code(s): H40.9 - Unspecified glaucoma Plan: S/P left eye surgery a couple of weeks ago Continue Prednisolone acetate 1% 1 drop into the left eye QID Continue Dorzolamide-Timolol 22.3-6.8 mg/ml 1 drop to both eyes BID Is also on Xiidra 5% 1 drop to eye BID for dry eyes Follow up with [facility] as scheduled (17) Insomnia: Code(s): G47.00 - Insomnia, unspecified Qualifiers: Insomnia type: unspecified Qualified Code(s): G47.00 - Insomnia, unspecified Plan: Sleep hygiene reinforced Continue Melatonin 6 mg Q HS PRN Mirtazapine and Quetiapine also helps with her sleep at night (18) Anxiety: Code(s): F41.9 - Anxiety disorder, unspecified Plan: Continue Hydroxyzine 25 mg TID PRN and Clonazepam 1 mg Q HS (19) Depression: Code(s): F32.9 - Major depressive disorder, single episode, unspecified Qualifiers: Depression Type: major depressive disorder Major depression recurrence: recurrent Active/Remission status: currently active Major depression episode severity: unspecified Qualified Code(s): F33.9 - Major depressive disorder, recurrent, unspecified Plan: Continue Fluoxetine 20 mg BID, Mirtazapine 30 mg Q HS and Quetiapine 75 mg Q HS Follow up with psychiatry as scheduled (20) Obesity (BMI 30-39.9): Code(s): E66.9 - Obesity, unspecified Plan: Reinforced diet; exercise and weight loss are not realistic in her case given her dementia and multiple medical and physical comorbidities Plan Follow up in 3 months Orders: Orders Lipid Panel 3 Months E78.00 - Pure hypercholesterolemia, unspecified Free T4 (Free Thyroxine) 3 Months E03.9 - Hypothyroidism, unspecified Vitamin D 25-OH Total 3 Months E55.9 - Vitamin D deficiency, unspecified Vitamin B12 and Folate 3 Months E53.8 - Deficiency of other specified B group vitamins UA CC w/rflx Micro + Cult 3 Months R30.0 - Dysuria Complete Blood Count Auto Diff 3 Months I10 - Essential (primary) hypertension Comprehensive [place]. Panel Fast 3 Months E78.00 - Pure hypercholesterolemia, unspecified Hemoglobin A1c 3 Months E11.9 - Type 2 diabetes mellitus without 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s Microalbumin, Random (w Creat) 3 Months E11.9 - Type 2 diabetes mellitus without 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s Thyroid Stimulating Hormone 3 Months E03.9 - Hypothyroidism, unspecified Coding Level of Care Code Est Pt Level 4 (46772) Diagnoses Type 2 diabetes mellitus with diabetic polyneuropathy, with long-term current use of insulin E11.42; Z79.4 Diabetes mellitus salvage determiner insulin use: with prison use 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 edema associated with type 2 diabetes mellitus E11.3393 Diabetic retinopathy severity: with moderate nonproliferative retinopathy Diabetes mellitus macular edema: without macular edema Laterality: bilateral Pure hypercholesterolemia E78.00 Dementia without behavioral disturbance, unspecified dementia type F03.90 Dementia type: unspecified type Dementia behavioral disturbance: without behavioral disturbance Migraine without status migrainosus, not intractable, unspecified migraine type G43.909 Migraine type: unspecified Status migrainosus presence: without status migrainosus Intractability: not intractable Gastroesophageal reflux disease without esophagitis K21.9 Esophagitis presence: without esophagitis Chronic idiopathic constipation K59.04 Elevated LFTs R79.89 Acquired hypothyroidism E03.9 Allergic rhinitis, unspecified seasonality, unspecified trigger J30.9 Allergic rhinitis trigger: unspecified Allergic rhinitis seasonality: unspecified Diffuse idiopathic skeletal hyperostosis of cervical spine M48.12 Lumbar spondylosis M47.816 Primary osteoarthritis involving multiple joints M89.49 Osteoarthritis location: multiple joints Osteoarthritis type: primary Overactive bladder N32.81 Vitamin D deficiency E55.9 Glaucoma of both eyes, unspecified glaucoma type H40.9 Glaucoma type: unspecified Laterality: bilateral Insomnia, unspecified type G47.00 Insomnia type: unspecified Anxiety F41.9 Episode of recurrent major depressive disorder, unspecified depression episode severity F33.9 Depression Type: major depressive disorder Major depression recurrence: recurrent Active/Remission status: currently active Major depression episode severity: unspecified Obesity (BMI 30-39.9) E66.9
== END 2023-08-18 11:58 | disposition home or self-care (01) ==
PROVIDERS: PCP Internal Medicine; Visit Provider Internal Medicine
DX: E11.42 Type 2 diabetes mellitus with diabetic polyneuropathy (principal); Z79.4 Long term (current) use of insulin; F03.90 Unspecified dementia, unspecified severity, without behavioral disturbance, psychotic disturbance, mood disturbance, and anxiety; F33.9 Major depressive disorder, recurrent, unspecified
CPT/HCPCS: 99214

== ENCOUNTER → 2023-09-18 13:23 | Outpatient (BNVA) | payer OTHER, SELFPAY | PROVIDERS: PCP Internal Medicine; Visit Provider Registered Nurse Diabetes Educator | DX: E11.42 Type 2 diabetes mellitus with diabetic polyneuropathy (principal) | CPT/HCPCS: 99211 ==

== ENCOUNTER 2023-11-13 10:47 | Outpatient (REF) | payer OTHER, SELFPAY | END 2023-11-13 10:48 | disposition home or self-care (01) | LOC: HO.MAMMO 10:47 | PROVIDERS: PCP Internal Medicine; Visit Provider Internal Medicine | DX: Z12.31 Encounter for screening mammogram for malignant neoplasm of breast (principal) | CPT/HCPCS: 77063; 77067; 99212 ==

== ENCOUNTER → 2023-11-13 11:30 | Outpatient (BNV) | payer OTHER, SELFPAY | PROVIDERS: PCP Internal Medicine; Visit Provider Radiology Diagnostic Radiology | DX: Z12.31 Encounter for screening mammogram for malignant neoplasm of breast (principal) | CPT/HCPCS: 77063; 77067 ==

== ENCOUNTER 2023-11-13 15:36 | Outpatient (AMB) | payer OTHER, SELFPAY ==
--- NOTE | 2023-11-13 15:19 | A.OFFVIS_ITS ---
Intake Intake Visit Reasons: Discuss botox Intake Note: Patient is present for Follow Up Urology Med: Fidencio Antibiotic Allergy: Penicillin Blood Thinner: Aspirin [facility]acy: [facility] Allergies francisco Allergy (Severe, Verified 08/18/23 11:30) Rash Penicillins Allergy (Intermediate, Verified 08/18/23 11:30) RASH/HIVES Medication List - Last Reconciled 11/14/23 by Charlie Jones MD [DDisposable Underwear Heavy Absorbency Large (2) - Personal As directed] [Disposable Underpad 30 x 30 Heavy Flow As directed] [ADULT DIAPERS/BRIEFS As directed] aspirin 81 mg PO DAILY betamethasone dipropionate 0.05% 1 appl topical DAILY bisacodyl (Laxative (bisacodyl)) 10 mg (2 x 5 mg) PO BEDTIME blood sugar diagnostic (FreeStyle Lite Strips) 5 times a day blood-glucose meter,continuous (Dexcom G7 Shrinking Machine Operator) As directed blood-glucose sensor (Dexcom G7 Sensor device) As directed blood-glucose transmitter (Dexcom G6 Transmitter device) As directed cholecalciferol (vitamin D3) 125 mcg PO DAILY clonazepam 1 mg PO BEDTIME compr.stocking,knee,long,large As directed diaper,brief,adult,disposable (Overnight Underwear Large) As directed PULL UPS donepezil 10 mg PO BEDTIME dorzolamide-timolol (PF) 2-0.5 % 1 drp ophthalmic (eye) BID dorzolamide-timolol 22.3-6.8 mg/mL 1 drp ophthalmic (eye) BID dulaglutide (Trulicity) 1.5 mg (0.5 mL) subcut QWEEK fluoxetine 20 mg PO BID fluticasone propionate 50 mcg/actuation 2 sprays intranasal DAILY PRN gabapentin 300 mg PO TID 30 days galcanezumab-gnlm (Emgality Pen) 120 mg subcut QMONTH hydroxyzine HCl 25 mg PO TID PRN insulin glargine (Lantus Solostar U-100 Insulin) 33 units (0.33 mL) subcut DAILY insulin lispro (Humalog U-100 Insulin) 0 - 76 units (0 - 0.76 mL) subcut DAILY insulin pump cart,cont inf,BT (Omnipod Dash Pods (Gen 4) subcutaneous cartridge) USE 2 EA SUBCUTANEOUSLY EVERY 3 DAYS FOR 30 DAYS 2 BOXES PF 10 PODS CHANGE EVERY 3 DAYS insulin pump cart,cont inf,BT (Omnipod Dash Pods (Gen 4) subcutaneous cartridge) DIRECTED insulin pump cartridge 2 ea subcut Q3D 30 days NS levothyroxine 125 mcg PO QAM magnesium oxide 400 mg PO BEDTIME melatonin 6 mg PO BEDTIME PRN methylcellulose (laxative) (Fiber Therapy (methylcellulose)) 1,000 mg (2 x 500 mg) PO DAILY PRN midodrine 10 mg PO TID mirabegron ER (Myrbetriq) 50 mg PO DAILY mirtazapine 30 mg PO QPM miscellaneous medical supply Wipes miscellaneous; 100 wipebox/ 3 boxes ondansetron 4 mg PO Q8H PRN 15 days pantoprazole 40 mg PO BID pen needle, diabetic (Comfort EZ Pen [place]) As directed injects 4 times a day [Personal Cleansing Wipes (2) As directed] plecanatide (Trulance) 3 mg PO DAILY prednisolone acetate 1% 1 drp ophthalmic (eye) QID quetiapine 75 mg PO BEDTIME rosuvastatin 40 mg PO DAILY scopolamine base 1 patch transdermal Q3D PRN simethicone (Anti-Gas Ultra Strength) 180 mg PO QID sulfamethoxazole-trimethoprim 800-160 mg (Bactrim DS) 1 tab PO BID [UNDERPADS As directed] HPI HPI Comments History of Present Illness Details Debo is a 68-year-old female who presents today to the office for a follow-up on urinary frequency. 11/13/23---Debo is followed for OAB, sp astic neurogenic bladder with a past medical history of anxiety, dementia, CVA, diabetic neuropathy, HLD, HTN, insomnia, diabetes, osteoarthritis, thyroid disease. She was last seen by me on 06/09/23 for urinary frequency. She was treated for a UTI at that time. She has had bladder Botox injection 100 units on 10/08/2022. She had improvement in her bladder symptoms. She failed PO bladder meds in the past. She is on Myrbetriq 50 mg daily and continues to leak with associated urge. Review of chart: I reviewed the renal US results from 09/30/2022 revealed normal findings. I reviewed the urine culture results from 11/07/2022 revealed 10,000 to 50,000 cfu/mL mixed bacterial lin. 11/13/23: Plan: Schedule Botox Bladder injection 100 units under MAC. Consent obtained. Pt to start bactrim DS 2 days prior to botox procedure. [facility] Medical History Chronic pain syndrome Dementia 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 Diabetic neuropathy Insomnia Glaucoma Migraine Acquired hypothyroidism Hearing impairment COVID-19 vaccine administered CVA (cerebral vascular accident) Blind left eye Localized swelling, mass and lump, neck Urinary tract infection with pyuria Elevated LFTs Elevated liver enzymes Depression Anxiety Urinary incontinence in female Osteoarthritis Lumbar spondylosis Pure hypercholesterolemia Type 2 diabetes mellitus with diabetic polyneuropathy Pain of right thumb Allergic rhinitis Hypertension Obesity (BMI 30-39.9) Vitamin D deficiency Dyslipidemia Diabetic 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 type 2 diabetes mellitus [facility] (current) use of insulin Dizziness and giddiness Orthostatic hypotension Surgical History History of carpal tunnel release History of pubovaginal sling Hx of eye surgery Hx of cystoscopy Hx of hysterectomy Hx of cholecystectomy History of esophagogastroduodenoscopy (EGD) Hx of colonoscopy Family History Father Diabetes Mother Heart problem Brother Diabetes Social History Housing: Apartment Are you a primary team primary care physician to a significant other at home: No Do you presently have visiting nurse or other home services: Yes Alcohol intake: never Patient Tobacco Use Status: Never used Tobacco e-Cigarette/Vaping Use: Never Used Second Hand Smoke Exposure: No service: No Current occupational status: disabled Gender identity: Female Cognitive needs: Yes Hearing needs: No Vision needs: Yes Female Reproductive History Menstrual Age of Menarche: 10 Review of Systems Const All systems reviewed & are unremarkable except as noted in HPI and below Reports no additional complaints Eyes Reports no additional complaints ENT Reports no additional complaints Card Denies dyspnea Resp Denies cough and Denies dyspnea GI Reports no additional complaints Reports no additional complaints Musc Reports no additional complaints Skin/Breast Denies rash and Denies unusual bruising Neuro Reports no additional complaints Psych Reports no additional complaints Endo Reports no additional complaints Ethan/Lymph Reports no additional complaints Aller/Immun Reports no additional complaints Assessment & Plan Assessment & Plan (1) Overactive bladder: Code(s): N32.81 - Overactive bladder (2) Urge incontinence of urine: Code(s): N39.41 - Urge incontinence Plan Schedule Botox Bladder injection 100 units under MAC. Consent obtained. Pt to start bactrim DS 2 days prior to botox procedure. Medications: New sulfamethoxazole-trimethoprim 800-160 mg (Bactrim DS) start antibiotic 2 days prior to botox bladder procedure. 1 tab PO BID 10 tabs 0RF Patient Instructions: The patient had an opportunity to ask questions regarding treatment plan. All questions were answered. Laboratory studies and physical exam results were discussed and reviewed in detail. No major barriers to understanding were identified. The patient expressed understanding and agreement with the above treatment plan. The patient is aware they should contact our office by phone for worsening of their current condition or the appearance of new symptoms. Compliance is encouraged with any medications and followup testing that is ordered. It is a privilege to be allowed the opportunity to participate in the urologic care of your patient. If you have any questions or concerns regarding treatment for the above conditions please do not hesitate to contact me. The office telephone contact is [phone]. This note is constructed in part using voice recognition software. While every effort has been made to ensure accuracy offset plate preparation supervisor errors may have been included. Yours sincerely, Charlie Jones MD Coding Level of Care Code Est Pt Level 4 (65275) Diagnoses Overactive bladder N32.81 Urge incontinence of urine N39.41
== END 2023-11-13 16:30 | disposition home or self-care (01) ==
PROVIDERS: PCP Internal Medicine; Visit Provider Urology
DX: N32.81 Overactive bladder (principal); N39.41 Urge incontinence
CPT/HCPCS: 99214

== ENCOUNTER 2023-11-20 10:51 | Outpatient (REF) | payer OTHER, SELFPAY ==
[2023-11-20 11:13] LABS: MANUAL DIFF FLAG NO
[2023-11-20 11:58] LABS: Appearance Urine Clear; Color Urine Yellow; Glucose Urine UA Negative (Negative); Leukocyte Esterase Urine Negative (Negative); Nitrite Urine Negative (Negative); PH 5.5 (5.0-9.0); Urine Blood Negative (Negative); Urine Ketones Negative (Negative); Urine Protein Negative (Neg-Trace)
[2023-11-20 11:59] LABS: Basophils Percent Auto 0.8 % (0-2); Eosinophils Absolute Auto 0.1 X10*3/uL (0.0-0.4); Eosinophils Percent Auto 2.8 % (0-4); Hematocrit 40.2 % (37.0-47.0); Lymphocytes Absolute Auto 1.6 X10*3/uL (1.2-4.9); Lymphocytes Percent Auto 44.1 % (20-40); Mean Corpuscular HGB Conc 32.3 g/dl (31.0-35.0); Mean Corpuscular Hemoglobin 30.4 pg (27.0-33.0); Mean Corpuscular Volume 93.9 fL (80.0-98.0); Mean Platelet Volume 9.7 fL (9.4-12.3); Monocytes Absolute Auto 0.3 X10*3/uL (0.1-1.2); Monocytes Percent Auto 7.4 % (2-11); Neutrophils Absolute Auto 1.6 x10*3/uL (2.0-8.3); Neutrophils Percent Auto 44.9 % (45-73); Platelet Count 121 X10*3/uL (160-400); Red Blood Count 4.28 X10*6/uL (4.20-5.50); Red Cell Distribution Width 13.3 % (11.0-16.0); White Blood Count 3.6 X10*3/uL (4.8-10.8)
[2023-11-20 12:09] LABS: Estimated Average Glucose 111 mg/dL; Hemoglobin A1c % 5.5 % (<6.0)
[2023-11-20 12:32] LABS: Creatinine Urine 114.14 mg/dL; Microalbum/Creatinine Ratio Ur 12.2 ug/mg cr (<30)
[2023-11-20 12:47] LABS: Alanine Aminotransferase 38 U/L (0-31); Albumin Level 3.9 g/dL (3.5-5.0); Alkaline Phosphatase 108 U/L (39-117); Anion Gap 10 (12-20); Aspartate Amino Transferase 46 U/L (5-31); Bilirubin Total 0.4 mg/dL (0.0-1.0); Blood Urea Nitrogen 22 mg/dL (9-16); Calcium 9.4 mg/dL (8.4-10.2); Carbon Dioxide 30 mmol/L (22-29); Chloride 106 mmol/L (96-108); Cholesterol 103 mg/dL (<200); Estimated Glomerular Filt Rate > 60; Glucose Fasting 80 mg/dL (60-99); HDL Cholesterol 44 mg/dL (>40); LDL Cholesterol Calculated 39 mg/dL (<100); Potassium 4.3 mmol/L (3.3-5.1); Sodium 142 mmol/L (135-145); Total Protein 7.2 g/dL (6.5-8.0); Triglycerides 100 mg/dL (<150)
[2023-11-20 12:54] LABS: Free T4 (Free Thyroxine) 1.12 ng/dL (0.71-1.85); Thyroid Stimulating Hormone 0.17 uIU/mL (0.32-4.0); Vitamin D 25-OH Total 49.8 ng/mL (>30)
[2023-11-20 12:58] LABS: Folate 12.7 ng/mL (> or = 4.0); Vitamin B12 412 pg/mL (200-900)
== END 2023-11-20 10:52 | disposition home or self-care (01) ==
LOC: HO.LAB 10:51
PROVIDERS: PCP Internal Medicine; Visit Provider Internal Medicine
DX: E78.00 Pure hypercholesterolemia, unspecified (principal); E55.9 Vitamin D deficiency, unspecified; R30.0 Dysuria; E11.9 Type 2 diabetes mellitus without 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s; E03.9 Hypothyroidism, unspecified; E53.8 Deficiency of other specified B group vitamins; I10 Essential (primary) hypertension; I95.1 Orthostatic hypotension; I35.9 Nonrheumatic aortic valve disorder, unspecified
CPT/HCPCS: 36415; 80053; 80061; 81003; 82043; 82306; 82570; 82607; 82746; 83036; 84439; 84443; 85025; 99212

== ENCOUNTER 2023-11-20 12:17 | Outpatient (AMB) | payer OTHER, SELFPAY ==
[2023-11-20 13:08] VITALS: BP 106/62; PULSE 81; BMI 31.7
--- NOTE | 2023-11-20 13:08 | A.OFFVIS_ITS ---
Intake Vital Signs 11/20/23 13:08 Height 5 ft 1 in Weight 167 lb 8.821 oz BMI 31.7 BP 106/62 Blood Pressure Location Lt brachial Position Sitting Pulse 81 Intake Visit Reasons: 1 YR F/UP Intake Note: 1 year follow up Stadium Attendant Required: No Accompanied by: Daughter Allergies francisco Allergy (Severe, Verified 11/20/23 13:09) Rash Penicillins Allergy (Intermediate, Verified 11/20/23 13:09) RASH/HIVES Medication List - Last Reconciled 11/20/23 by Sanjay Parsons MD [DDisposable Underwear Heavy Absorbency Large (2) - Personal As directed] [Disposable Underpad 30 x 30 Heavy Flow As directed] [ADULT DIAPERS/BRIEFS As directed] aspirin 81 mg PO DAILY betamethasone dipropionate 0.05% 1 appl topical DAILY bisacodyl (Laxative (bisacodyl)) 10 mg (2 x 5 mg) PO BEDTIME blood sugar diagnostic (FreeStyle Lite Strips) 5 times a day blood-glucose meter,continuous (Dexcom G7 Enterprise Systems Architect) As directed blood-glucose sensor (Dexcom G7 Sensor device) As directed blood-glucose transmitter (Dexcom G6 Transmitter device) As directed cholecalciferol (vitamin D3) 125 mcg PO DAILY clonazepam 1 mg PO BEDTIME compr.stocking,knee,long,large As directed diaper,brief,adult,disposable (Overnight Underwear Large) As directed PULL UPS donepezil 10 mg PO BEDTIME dorzolamide-timolol (PF) 2-0.5 % 1 drp ophthalmic (eye) BID dorzolamide-timolol 22.3-6.8 mg/mL 1 drp ophthalmic (eye) BID dulaglutide (Trulicity) 1.5 mg (0.5 mL) subcut QWEEK fluoxetine 20 mg PO BID fluticasone propionate 50 mcg/actuation 2 sprays intranasal DAILY PRN gabapentin 300 mg PO TID 30 days galcanezumab-gnlm (Emgality Pen) 120 mg subcut QMONTH hydroxyzine HCl 25 mg PO TID PRN insulin glargine (Lantus Solostar U-100 Insulin) 33 units (0.33 mL) subcut DAILY insulin lispro (Humalog U-100 Insulin) 0 - 76 units (0 - 0.76 mL) subcut DAILY insulin pump cart,cont inf,BT (Omnipod Dash Pods (Gen 4) subcutaneous cartridge) USE 2 EA SUBCUTANEOUSLY EVERY 3 DAYS FOR 30 DAYS 2 BOXES PF 10 PODS CHANGE EVERY 3 DAYS insulin pump cart,cont inf,BT (Omnipod Dash Pods (Gen 4) subcutaneous cartridge) DIRECTED insulin pump cartridge 2 ea subcut Q3D 30 days NS levothyroxine 125 mcg PO QAM magnesium oxide 400 mg PO BEDTIME melatonin 6 mg PO BEDTIME PRN methylcellulose (laxative) (Fiber Therapy (methylcellulose)) 1,000 mg (2 x 500 mg) PO DAILY PRN mirabegron ER (Myrbetriq) 50 mg PO DAILY mirtazapine 30 mg PO QPM miscellaneous medical supply Wipes miscellaneous; 100 wipebox/ 3 boxes ondansetron 4 mg PO Q8H PRN 15 days pantoprazole 40 mg PO BID pen needle, diabetic (Comfort EZ Pen Prince) As directed injects 4 times a day [Personal Cleansing Wipes (2) As directed] plecanatide (Trulance) 3 mg PO DAILY prednisolone acetate 1% 1 drp ophthalmic (eye) QID quetiapine 75 mg PO BEDTIME rosuvastatin 40 mg PO DAILY scopolamine base 1 patch transdermal Q3D PRN simethicone (Anti-Gas Ultra Strength) 180 mg PO QID sulfamethoxazole-trimethoprim 800-160 mg (Bactrim DS) 1 tab PO BID [UNDERPADS As directed] HPI HPI Comments History of Present Illness Details Debo returns for follow-up regarding orthostatic hypotension. She had been maintained on a combination of midodrine and Florinef for this reason. However, in a prior visit, we noticed that the blood pressures were actually on the higher side sometimes as much as 170s. Hence we stopped both the medications. Then during last visit, she was back on the midodrine but no longer on it. She has had chronic dizziness even when the blood pressures were normal. Otherwise, no documented cardiac issues like coronary disease myocardial infarction. It seems that she sees a neurologist and based on notes, diagnosed to have frontal temporal dementia. [facility] Medical History Chronic pain syndrome Dementia 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 Diabetic neuropathy Insomnia Glaucoma Migraine Acquired hypothyroidism Hearing impairment COVID-19 vaccine administered CVA (cerebral vascular accident) Blind left eye Localized swelling, mass and lump, neck Urinary tract infection with pyuria Elevated LFTs Elevated liver enzymes Depression Anxiety Urinary incontinence in female Osteoarthritis Lumbar spondylosis Pure hypercholesterolemia Type 2 diabetes mellitus with diabetic polyneuropathy Pain of right thumb Allergic rhinitis Hypertension Obesity (BMI 30-39.9) Vitamin D deficiency Dyslipidemia Diabetic 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 type 2 diabetes mellitus FPC (current) use of insulin Dizziness and giddiness Orthostatic hypotension Surgical History History of carpal tunnel release History of pubovaginal sling Hx of eye surgery Hx of cystoscopy Hx of hysterectomy Hx of cholecystectomy History of esophagogastroduodenoscopy (EGD) Hx of colonoscopy Family History Father Diabetes Mother Heart problem Brother Diabetes Social History Housing: Apartment Are you a primary career development coordinator to a significant other at home: No Do you presently have visiting nurse or other home services: Yes Alcohol intake: never Patient Tobacco Use Status: Never used Tobacco e-Cigarette/Vaping Use: Never Used Second Hand Smoke Exposure: No service: No Current occupational status: disabled Gender identity: Female Cognitive needs: Yes Hearing needs: No Vision needs: Yes Female Reproductive History Menstrual Age of Menarche: 10 Review of Systems Const Denies weakness ENT Denies dizziness Card Denies chest pain, Denies chest pain with activity, Denies syncope, Denies rapid heart rate, Denies pedal edema, Denies edema, Denies leg edema, Denies lightheadedness, Denies palpitations and Denies orthopnea Resp Denies cough GI Denies hematochezia and Denies change in stool character Musc Denies abnormal gait, Denies muscle cramps, Denies muscle weakness, Denies numbness, Denies radiating pain into limb and Denies tingling Neuro Denies abnormal gait, Denies dizziness, Denies syncope, Denies numbness, Denies tingling and Denies weakness Endo Denies palpitations Physical Exam Vital Signs: Last Vital Signs Pulse 81 11/20/23 13:08 BP 106/62 11/20/23 13:08 BMI result Body Mass Index 31.7 Const General: comfortable and no acute distress Orientation/consciousness: patient oriented x3 HEENT Other: Unremarkable Head: Yes normal to inspection Neck Neck: Yes normal visual inspection Chest Chest palpation & inspection: normal inspection of the chest Resp Auscultation: clear to auscultation bilaterally Cardio Palpation: normal PMI Heart sounds: S1 normal heart sound present, S2 normal heart sound present, no gallops, no murmurs and no rubs GI Palpation (GI): Soft to palpation Back/Spine/Pelvis Other: unremarkable Skin General skin exam: no rashes or lesions noted Neuro General: patient oriented x3 Extrem General: Yes normal to inspection Psych Mental Status: mental status grossly normal Assessment & Plan Assessment & Plan (1) Orthostatic hypotension: Code(s): I95.1 - Orthostatic hypotension (2) Aortic valve calcification: Code(s): I35.9 - Nonrheumatic aortic valve disorder, unspecified Plan Today, she is complaining of dizziness even when the blood pressure is completely normal. Hence may not be from blood pressure issues at all. Could be even neurological. Hence no further med changes at this time. Of note, she has been on midodrine as well as Florinef in the past but also has had high blood pressure and hence they were stopped. She can just use liberal fluid/salt intake. Compression stockings as needed. She also has a history of dementia and hence that could also lead to falls. On echocardiogram, aortic valve calcification noted but no stenosis. No hemodynamic significance at this time. Medications: Changed From mirabegron ER (Myrbetriq) 50 mg PO DAILY 90 tabs 2RF To mirabegron ER (Myrbetriq) 50 mg PO DAILY Coding Level of Care Code Est Pt Level 3 (54545) Diagnoses Orthostatic hypotension I95.1 Aortic valve calcification I35.9
== END 2023-11-20 13:30 | disposition home or self-care (01) ==
PROVIDERS: PCP Internal Medicine; Visit Provider Internal Medicine
DX: I95.1 Orthostatic hypotension (principal); I35.9 Nonrheumatic aortic valve disorder, unspecified
CPT/HCPCS: 99213

== ENCOUNTER 2023-11-24 12:56 | Outpatient (AMB) | payer OTHER, SELFPAY ==
[2023-11-24 13:04] VITALS: BP 130/72; PULSE 86; O2SAT 94; BMI 31.7
--- NOTE | 2023-11-24 13:04 | A.OFFPC_ITS ---
Vital Signs 11/24/23 13:04 Height 5 ft 1 in Weight 168 lb BMI 31.7 BP 130/72 Blood Pressure Location Lt brachial Position Sitting Pulse 86 Pulse Source Pulse Oximeter Pulse Oximetry (%) 94 Oxygen Delivery Method Room Air Intake Visit Reasons: 3 month f/u Cnmt Required: No Accompanied by: Self / Same As Patient Allergies francisco Allergy (Severe, Verified 11/24/23 13:27) Rash Penicillins Allergy (Intermediate, Verified 11/24/23 13:27) RASH/HIVES Medication List - Last Reconciled 11/24/23 by Elijah Hunter MD [DDisposable Underwear Heavy Absorbency Large (2) - Personal As directed] [Disposable Underpad 30 x 30 Heavy Flow As directed] [ADULT DIAPERS/BRIEFS As directed] aspirin 81 mg PO DAILY betamethasone dipropionate 0.05% 1 appl topical DAILY bisacodyl (Laxative (bisacodyl)) 10 mg (2 x 5 mg) PO BEDTIME blood sugar diagnostic (FreeStyle Lite Strips) 5 times a day blood-glucose meter,continuous (Dexcom G7 Resident Programs Assistant) As directed blood-glucose sensor (Dexcom G7 Sensor device) As directed blood-glucose transmitter (Dexcom G6 Transmitter device) As directed cholecalciferol (vitamin D3) 125 mcg PO DAILY clonazepam 1 mg PO BEDTIME compr.stocking,knee,long,large As directed diaper,brief,adult,disposable (Overnight Underwear Large) As directed PULL UPS donepezil 10 mg PO BEDTIME dorzolamide-timolol (PF) 2-0.5 % 1 drp ophthalmic (eye) BID dorzolamide-timolol 22.3-6.8 mg/mL 1 drp ophthalmic (eye) BID dulaglutide (Trulicity) 1.5 mg (0.5 mL) subcut QWEEK fluoxetine 20 mg PO BID fluticasone propionate 50 mcg/actuation 2 sprays intranasal DAILY PRN gabapentin 300 mg PO TID 30 days galcanezumab-gnlm (Emgality Pen) 120 mg subcut QMONTH hydroxyzine HCl 25 mg PO TID PRN insulin glargine (Lantus Solostar U-100 Insulin) 33 units (0.33 mL) subcut DAILY insulin lispro (Humalog U-100 Insulin) 0 - 76 units (0 - 0.76 mL) subcut DAILY insulin pump cart,cont inf,BT (Omnipod Dash Pods (Gen 4) subcutaneous cartridge) USE 2 EA SUBCUTANEOUSLY EVERY 3 DAYS FOR 30 DAYS 2 BOXES PF 10 PODS CHANGE EVERY 3 DAYS insulin pump cart,cont inf,BT (Omnipod Dash Pods (Gen 4) subcutaneous cartridge) DIRECTED insulin pump cartridge 2 ea subcut Q3D 30 days NS levothyroxine 125 mcg PO QAM magnesium oxide 400 mg PO BEDTIME melatonin 6 mg PO BEDTIME PRN methylcellulose (laxative) (Fiber Therapy (methylcellulose)) 1,000 mg (2 x 500 mg) PO DAILY PRN mirabegron ER (Myrbetriq) 50 mg PO DAILY mirtazapine 30 mg PO QPM miscellaneous medical supply Wipes miscellaneous; 100 wipebox/ 3 boxes ondansetron 4 mg PO Q8H PRN 15 days pantoprazole 40 mg PO BID pen needle, diabetic (Comfort EZ Pen [place]) As directed injects 4 times a day [Personal Cleansing Wipes (2) As directed] plecanatide (Trulance) 3 mg PO DAILY prednisolone acetate 1% 1 drp ophthalmic (eye) QID quetiapine 75 mg PO BEDTIME rosuvastatin 40 mg PO DAILY scopolamine base 1 patch transdermal Q3D PRN simethicone (Anti-Gas Ultra Strength) 180 mg PO QID sulfamethoxazole-trimethoprim 800-160 mg (Bactrim DS) 1 tab PO BID sulfamethoxazole-trimethoprim 800-160 mg (Bactrim DS) 1 tab PO BID [UNDERPADS As directed] Tobacco use date assessed: 11/24/23 Fall risk assessment: No Falls in past year Last assessed Fall Risk: 11/24/23 Dental Screening Dental Screen Date: 11/24/23 Did you have a dental visit in the last 12 months?: No Did you have a dental problem in the last 6 months where you did not have access to dental care?: No Was dental information given to patient?: No HPI 3 month f/u HPI Details Patient comes in today for her follow up visit States that she feels okay She denies any headaches but she continues to experience on and off dizziness Denies any chest pains, no increased SOB (+) occasional nausea but denies any vom iting; relates (+) upper abdominal pain again recently - states that this has been going on for about 3 days now and that her abdominal pain feels worse when she eats something No change in bowel habits noted States that her chronic neck, lower back and joint pains have been adequately controlled lately Needs her Gabapentin and Lantus Rx refilled Had her follow up labs done a few days ago - to discuss her results [facility] Medical History Chronic pain syndrome Dementia 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 Diabetic neuropathy Insomnia Glaucoma Migraine Acquired hypothyroidism Hearing impairment COVID-19 vaccine administered CVA (cerebral vascular accident) Blind left eye Localized swelling, mass and lump, neck Urinary tract infection with pyuria Elevated LFTs Elevated liver enzymes Depression Anxiety Urinary incontinence in female Osteoarthritis Lumbar spondylosis Pure hypercholesterolemia Type 2 diabetes mellitus with diabetic polyneuropathy Pain of right thumb Allergic rhinitis Hypertension Obesity (BMI 30-39.9) Vitamin D deficiency Dyslipidemia Diabetic 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 type 2 diabetes mellitus 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 Dizziness and giddiness Orthostatic hypotension Surgical History History of carpal tunnel release History of pubovaginal sling Hx of eye surgery Hx of cystoscopy Hx of hysterectomy Hx of cholecystectomy History of esophagogastroduodenoscopy (EGD) Hx of colonoscopy Family History Father Diabetes Mother Heart problem Brother Diabetes Social History Housing: Apartment Are you a primary managed care liaison to a significant other at home: No Do you presently have visiting nurse or other home services: Yes Alcohol intake: never Patient Tobacco Use Status: Never used Tobacco e-Cigarette/Vaping Use: Never Used Second Hand Smoke Exposure: No service: No Current occupational status: disabled Gender identity: Female Cognitive needs: Yes Hearing needs: No Vision needs: Yes Female Reproductive History Menstrual Age of Menarche: 10 Questionnaire PHQ-9 Over the last 2 weeks, how often have you been bothered by any of the following problems? 1. Little interest or pleasure in doing things: not at all 2. Feeling down, depressed, or hopeless: not at all 3. Trouble falling or staying asleep, or sleeping too much: not at all 4. Feeling tired or having little energy: not at all 5. Poor appetite or overeating: not at all 6. Feeling bad about yourself - or that you are a failure or have let yourself or your family down: not at all 7. Trouble concentrating on things, such as reading the newspaper or watching television: not at all 8. Moving or speaking so slowly that other people could have noticed. Or the opposite - being so fidgety or restless that you have been moving around a lot more than usual: not at all 9. Thoughts that you would be better off or of hurting yourself in some way: not at all Total score: 0 Depression Screening Interpretation: Negative (controlled on her Rx) Depression Screening Done: Yes 70341 - PHQ-9 Billing: Yes Source: Developed by Drs. Neil Wayne, Lakisha Bell, Latrell Serra and colleagues, with an educational sophie from [facility]. Thrive Questionnaire Date Thrive assessed: 11/24/23 I am a: Patient What is your living situation today?: I have a steady place to live Within the past 12 months, did the food you bought not last and you didn't have the money to get more?: Never true Within the past 12 months, did you worry whether your food would run out before you got money to buy more?: Never true Do you have trouble paying for medicines?: No Do you have trouble getting transportation to medical appointments?: No Do you have trouble paying your heating and electricity bill?: No Do you have trouble taking care of your child, family member or friend?: No Do you have trouble with day-to-day activities such as bathing, preparing meals, shopping, managing finances, etc.?: No Are you currently unemployed and looking for a job?: No Are you interested in more education?: No Please select the resources that you would like help with: None Currently or been in a relationship where the following occur: no concerns reported THRIVE Score: 0 AUDIT C Alcohol Use Questionnaire (AUDIT-C) 1. How often do you have a drink containing alcohol?: Never 3. How often do you have six or more drinks on one occasion?: Never Total Score: 0 Score Reviewed/Action Taken: Yes REJI-7 AMB Questionnaire REJI-7 Date REJI - 7 assessed: 11/24/23 Feeling nervous, anxious, or on edge: 0 = Not at all Not being able to stop or control worryin = Not at all Worrying too much about different things: 0 = Not at all Trouble relaxin = Not at all Being so restless that it is hard to sit still: 0 = Not at all Becoming easily annoyed or irritable: 0 = Not at all Feeling afraid as if something awful might happen: 0 = Not at all Total REJI-7 score (0-4 normal; 5-9 mild; 10-14 moderate; 15-21 severe): 0 Source: Developed by Drs. eNil Wayne, Lakisha Bell, Latrell Serra and colleagues, with an educational sophie from [facility]. Review of Systems Const Denies chills, Reports fatigue, Denies fever(s) and Denies headache(s) (controlled on current Rx) ENT Denies dysphagia, Reports dizziness (on and off), Denies otalgia, Denies headache(s) (controlled on current Rx), Reports neck pain (chronic), Denies odynophagia and Denies sore throat Card Denies chest pain, Denies palpitations and Reports dyspnea on exertion (mild) Resp Denies chest congestion, Denies cough, Reports dyspnea on exertion (mild) and Denies wheezing GI Reports abdominal pain (over the upper abdomen - notes pain feels worse when she eats), Reports constipation (chronic - currently controlled on Rx), Denies dysphagia, Denies heartburn, Denies diarrhea, Reports nausea, Denies odynophagia and Reports vomiting Denies hematuria, Denies difficulty voiding, Reports nocturia, Denies dysuria and Reports urinary incontinence Musc Reports back pain and Reports neck pain (chronic) Skin/Breast Denies rash Neuro Denies behavioral changes, Reports dizziness (on and off), Denies headache(s) (controlled on current Rx), Reports memory loss and Denies tremor(s) Psych Denies behavioral changes, Reports memory loss and Denies mood swings Endo Reports fatigue and Denies palpitations Aller/Immun Denies wheezing Physical exam (Primary Care) Vital Signs: Last Vital Signs Pulse 86 11/24/23 13:04 BP 130/72 11/24/23 13:04 Pulse Ox 94 11/24/23 13:04 Oxygen Delivery Method Room Air 11/24/23 13:04 BMI result Body Mass Index 31.7 Tobacco/Smoking Status: Tobacco use Status Tobacco use date assessed 11/24/23 11/24/23 13:06 Patient Tobacco Use Status Never used Tobacco 11/24/23 13:06 e-Cigarette/Vaping Use Never Used 11/24/23 13:06 PHQ-9: PHQ-9 Score PHQ-9: Total score 0 11/24/23 13:12 Depression Screening Interpretation: Negative (controlled on her Rx) Thrive Assessment: Date of Thrive Assessment Date Thrive assessed 11/24/23 11/24/23 13:06 Currently or been in a relationship where the following occur: no concerns reported Const General: no acute distress and alert HENMT Ears: TM's normal bilaterally and EAC's normal Throat: Yes posterior oropharynx normal and Yes tonsils normal (no TP congestion) Neck Neck: Yes no lymphadenopathy and Yes supple Thyroid: Thyroid normal Resp Auscultation: clear to auscultation bilaterally, no rales and no wheezes Cardio Rate: regular rate Rhythm: regular rhythm Heart sounds: no murmurs GI Palpation (GI): Soft to palpation, Tenderness to palpation present (GI) (mild, over the upper abdomen), no guarding, not rigid and No Rebound tenderness present Auscultation: normal bowel sounds Back/Spine/Pelvis Cervical Spine: Cervical spine tenderness Thoracic/Lumbar Spine: lumbar spinal tenderness Skin Rashes: no rashes Extrem General: Yes no clubbing, cyanosis or edema Results Reviewed Results Reviewed: Laboratory Tests 11/20/23 11/20/23 11/20/23 11:10 11:10 11:11 WBC 3.6 L Hgb 13.0 Hct 40.2 Plt Count 121 L Sodium 142 Potassium 4.3 Creatinine 0.79 Estimated GFR > 60 Fasting Glucose 80 Hemoglobin A1c % 5.5 Calcium 9.4 AST 46 H ALT 38 H Triglycerides 100 Cholesterol 103 LDL Cholesterol, Calc 39 HDL Cholesterol 44 Vitamin B12 412 25-OH Vitamin D Total 49.8 Folate TSH 0.17 L Free T4 1.12 Ur Specific [place] 1.020 Urine Protein Negative Urine Glucose (UA) Negative Urine Blood Negative Ur Leukocyte Esterase Negative Microalb/Creat Ratio 12.2 11/20/23 11:11 WBC Hgb Hct Plt Count Sodium Potassium Creatinine Estimated GFR Fasting Glucose Hemoglobin A1c % Calcium AST ALT Triglycerides Cholesterol LDL Cholesterol, Calc HDL Cholesterol Vitamin B12 25-OH Vitamin D Total Folate 12.7 TSH Free T4 Ur Specific [place] Urine Protein Urine Glucose (UA) Urine Blood Ur Leukocyte Esterase Microalb/Creat Ratio Assessment and Plan Assessment & Plan (1) Type 2 diabetes mellitus with diabetic polyneuropathy: Comment: insulin pump-average glucose 166/last A1C 6.2% Code(s): E11.42 - Type 2 diabetes mellitus with diabetic polyneuropathy Qualifiers: Diabetes mellitus parts counterman insulin use: with fpc use Qualified Code(s): E11.42 - Type 2 diabetes mellitus with diabetic polyneuropathy; Z79.4 - 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 Velazquez) as scheduled (2) Diabetic 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 type 2 diabetes mellitus: Code(s): E11.319 - Type 2 diabetes mellitus with unspecified diabetic retinopathy without macular edema Qualifiers: Diabetic retinopathy severity: with moderate nonproliferative retinopat hy Diabetes mellitus macular edema: without macular edema Laterality: bilateral Qualified Code(s): E11.3393 - Type 2 diabetes mellitus with moderate nonproliferative diabetic retinopathy without macular edema, bilateral Plan: Reinforced strict diabetes control to help slow down disease progression Follow up with ophthalmology as scheduled (3) Pure hypercholesterolemia: Code(s): E78.00 - Pure hypercholesterolemia, unspecified Plan: Results of her labs done a few days ago reviewed and discussed with patient Reinforced low cholesterol diet Continue Rosuvastatin 40 mg QD Will recheck her labs and fasting lipids in 3 months for follow up (4) Migraine: Code(s): G43.909 - Migraine, unspecified, not intractable, without status migrainosus Qualifiers: Migraine type: unspecified Status migrainosus presence: without status migrainosus Intractability: not intractable Qualified Code(s): G43.909 - Migraine, unspecified, not intractable, without status migrainosus Plan: Continue Emgality 120 mg injection once a month - headaches have been well- controlled on her current Rx Follow up with neurology as scheduled (5) Dementia: Code(s): F03.90 - Unspecified dementia, unspecified severity, without behavioral disturbance, psychotic disturbance, mood disturbance, and anxiety Qualifiers: Dementia type: unspecified type Dementia behavioral disturbance: without behavioral disturbance Qualified Code(s): F03.90 - Unspecified dementia without behavioral disturbance Plan: Continue Donepezil 10 mg QD Follow up with neurology as scheduled (6) GERD (gastroesophageal reflux disease): Code(s): K21.9 - Gastro-esophageal reflux disease without esophagitis Qualifiers: Esophagitis presence: without esophagitis Qualified Code(s): K21.9 - Gastro-esophageal reflux disease without esophagitis Plan: Dietary restrictions reinforced Continue Pantoprazole 40 mg BID and Simethicone 100 mg QID PRN (7) Abdominal pain: Code(s): R10.9 - Unspecified abdominal pain Qualifiers: Abdominal location: upper abdomen, unspecified Qualified Code(s): R10.10 - Upper abdominal pain, unspecified Plan: Discussed that her recent upper abdominal pain may be due to gastritis or something similar Will try her on Carafate 1 gm TID x 15 days; continue Pantoprazole 40 mg QD Advised that if this does not help, then they should reach back out to GI for further evaluation and recommendations (8) Chronic idiopathic constipation: Code(s): K59.04 - Chronic idiopathic constipation Plan: Encouraged again increased oral fluids and dietary fiber Continue Trulance 3 mg QD, Fiber Therapy 1000 mg QD, Colace 100 mg QD PRN and Bisacodyl 10 mg Q HS PRN Follow up with GI as scheduled (9) Elevated LFTs: Code(s): R79.89 - Other specified abnormal findings of blood chemistry Plan: Her LFTs are still slightly elevated and have increased slightly from previous on her recent labs - is most likely related to her weight Will continue to monitor her LFTs regularly (10) Acquired hypothyroidism: Code(s): E03.9 - Hypothyroidism, unspecified Plan: TFTs were normal on her recent labs Continue Levothyroxine 125 mcg QD (11) Allergic rhinitis: Code(s): J30.9 - Allergic rhinitis, unspecified Qualifiers: Allergic rhinitis trigger: unspecified Allergic rhinitis seasonality: unspecified Qualified Code(s): J30.9 - Allergic rhinitis, unspecified Plan: Continue Fluticasone 50 mcg nasal spray QD PRN (12) Diffuse idiopathic skeletal hyperostosis of cervical spine: Code(s): M48.12 - Ankylosing hyperostosis [[place]], cervical region Plan: Cervical spine CT done back in 2019 revealed (+) diffuse idiopathic skeletal hyperostosis Was on Tramadol 50 mg Q HS PRN although she has not taken this in a while now as it was not helping Is currently doing okay on Gabapentin 300 mg TID Follow up with pain management as scheduled (13) Lumbar spondylosis: Code(s): M47.816 - Spondylosis without myelopathy or radiculopathy, lumbar region Plan: Reinforced activity and weight-lifting restrictions Gabapentin is also helping with her low back pain (14) Osteoarthritis: Code(s): M19.90 - Unspecified osteoarthritis, unspecified site Qualifiers: Osteoarthritis location: multiple joints Osteoarthritis type: primary Qualified Code(s): M89.49 - Other hypertrophic osteoarthropathy, multiple sites Plan: Involves multiple joints Patient has been using OTC pain patches PRN and OTC Tylenol PRN although she has been cautioned against taking too much Tylenol due to her elevated LFTs in the past Will consider referral to orthopedics if her joint symptoms get worse (15) Overactive bladder: Code(s): N32.81 - Overactive bladder Plan: Continue Oxybutynin ER 10 mg QD; has failed multiple other Rx and urology is reportedly now considering injecting Botox into her urinary bladder muscles to help control her symptoms better if Rx are no longer helping Continue Mybetriq ER 50 mg QD Follow up with urology as scheduled (16) Vitamin D deficiency: Code(s): E55.9 - Vitamin D deficiency, unspecified Plan: Corrected - continue Vitamin D3 125 mcg QD (17) Glaucoma: Code(s): H40.9 - Unspecified glaucoma Qualifiers: Glaucoma type: unspecified Laterality: bilateral Qualified Code(s): H40.9 - Unspecified glaucoma Plan: S/P left eye surgery a couple of weeks ago Continue Prednisolone acetate 1% 1 drop into the left eye QID Continue Dorzolamide-Timolol 22.3-6.8 mg/ml 1 drop to both eyes BID Is also on Xiidra 5% 1 drop to eye BID for dry eyes Follow up [facility] as scheduled (18) Insomnia: Code(s): G47.00 - Insomnia, unspecified Qualifiers: Insomnia type: unspecified Qualified Code(s): G47.00 - Insomnia, unspecified Plan: Sleep hygiene reinforced Continue Melatonin 6 mg Q HS PRN Mirtazapine and Quetiapine also helps with her sleep at night (19) Anxiety: Code(s): F41.9 - Anxiety disorder, unspecified Plan: Continue Hydroxyzine 25 mg TID PRN and Clonazepam 1 mg Q HS (20) Depression: Code(s): F32.9 - Major depressive disorder, single episode, unspecified Qualifiers: Depression Type: major depressive disorder Major depression recurrence: recurrent Active/Remission status: currently active Major depression episode severity: unspecified Qualified Code(s): F33.9 - Major depressive disorder, recurrent, unspecified Plan: Continue Fluoxetine 20 mg BID, Mirtazapine 30 mg Q HS and Quetiapine 75 mg Q HS Follow up with psychiatry as scheduled (21) Obesity (BMI 30-39.9): Code(s): E66.9 - Obesity, unspecified Plan: Reinforced diet; exercise and weight loss are not realistic in her case given her dementia and multiple medical and physical comorbidities Plan Follow up in 3 months Orders: Orders Hemoglobin A1c 3 Months E11.9 - Type 2 diabetes mellitus without 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s Complete Blood Count Auto Diff 3 Months D64.9 - Anemia, unspecified Thyroid Stimulating Hormone 3 Months E03.9 - Hypothyroidism, unspecified Vitamin D 25-OH Total 3 Months E55.9 - Vitamin D deficiency, unspecified UA CC w/rflx Micro + Cult 3 Months R30.0 - Dysuria Comprehensive Warrior. Panel Fast 3 Months E78.00 - Pure hypercholesterolemia, unspecified Lipid Panel 3 Months E78.00 - Pure hypercholesterolemia, unspecified Microalbumin, Random (w Creat) 3 Months E11.9 - Type 2 diabetes mellitus without 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s Vitamin B12 and Folate 3 Months E53.8 - Deficiency of other specified B group vitamins Medications: New sucralfate (Carafate) 1 g PO TID 45 tabs 0RF 15 days Refilled gabapentin 300 mg PO TID 90 caps 8RF 30 days insulin glargine (Lantus Solostar U-100 Insulin) 33 units (0.33 mL) subcut DAILY 15 mL 5RF Coding Level of Care Code Est Pt Level 4 (99965) Diagnoses Type 2 diabetes mellitus with diabetic polyneuropathy, with long-term current use of insulin E11.42; Z79.4 Diabetes mellitus fpc insulin use: with fpc use 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 edema associated with type 2 diabetes mellitus E11.3393 Diabetic retinopathy severity: with moderate nonproliferative retinopathy Diabetes mellitus macular edema: without macular edema Laterality: bilateral Pure hypercholesterolemia E78.00 Migraine without status migrainosus, not intractable, unspecified migraine type G43.909 Migraine type: unspecified Status migrainosus presence: without status migrainosus Intractability: not intractable Dementia without behavioral disturbance, unspecified dementia type F03.90 Dementia type: unspecified type Dementia behavioral disturbance: without behavioral disturbance Gastroesophageal reflux disease without esophagitis K21.9 Esophagitis presence: without esophagitis Pain of upper abdomen R10.10 Abdominal location: upper abdomen, unspecified Chronic idiopathic constipation K59.04 Elevated LFTs R79.89 Acquired hypothyroidism E03.9 Allergic rhinitis, unspecified seasonality, unspecified trigger J30.9 Allergic rhinitis trigger: unspecified Allergic rhinitis seasonality: unspecified Diffuse idiopathic skeletal hyperostosis of cervical spine M48.12 Lumbar spondylosis M47.816 Primary osteoarthritis involving multiple joints M89.49 Osteoarthritis location: multiple joints Osteoarthritis type: primary Overactive bladder N32.81 Vitamin D deficiency E55.9 Glaucoma of both eyes, unspecified glaucoma type H40.9 Glaucoma type: unspecified Laterality: bilateral Insomnia, unspecified type G47.00 Insomnia type: unspecified Anxiety F41.9 Episode of recurrent major depressive disorder, unspecified depression episode severity F33.9 Depression Type: major depressive disorder Major depression recurrence: recurrent Active/Remission status: currently active Major depression episode severity: unspecified Obesity (BMI 30-39.9) E66.9
== END 2023-11-24 14:05 | disposition home or self-care (01) ==
PROVIDERS: PCP Internal Medicine; Visit Provider Internal Medicine
DX: E11.42 Type 2 diabetes mellitus with diabetic polyneuropathy (principal); Z79.4 Long term (current) use of insulin; E11.3393 Type 2 diabetes mellitus with moderate nonproliferative diabetic retinopathy without macular edema, bilateral; E78.00 Pure hypercholesterolemia, unspecified; G43.909 Migraine, unspecified, not intractable, without status migrainosus; K21.9 Gastro-esophageal reflux disease without esophagitis; K59.04 Chronic idiopathic constipation; R79.89 Other specified abnormal findings of blood chemistry; E03.9 Hypothyroidism, unspecified; J30.9 Allergic rhinitis, unspecified; M48.12 Ankylosing hyperostosis [Forestier], cervical region; M47.816 Spondylosis without myelopathy or radiculopathy, lumbar region
CPT/HCPCS: 99214

== ENCOUNTER 2023-11-25 07:09 | Day surgery (SDC) | payer OTHER, SELFPAY ==
--- NOTE | 2023-11-17 10:21 | HO.ANESPROP2 ---
Documented by User: Jennifer Ervin NP 11/24/23 10:56 HPI - Anesthesia Eval Consult details Narrative: 68yo F for Cystoscopy Bladder Botox Injection s/p colo 07/2023 with [facility] [place] [place]20/23. Dizziness likely non-cardiac, possibly neurological. Stable from cardiac standpoint. Anesthesia Pre-Procedure Meds Is the patient on any of the following meds?: Dulaglutide (Trulicity) PMFSH Active Problems Active Problems: All Active Problems (Updated 09/12/23 @ 13:56 by REKHA Chang) Tubular adenoma of colon (Acute) Dizziness (Acute) Nausea and vomiting (Acute) Gastroparesis (Acute) Sinusitis (Acute) Chronic idiopathic constipation (Acute) GERD (gastroesophageal reflux disease) (Acute) Rectocele (Acute) Hemorrhoids (Acute) Charmaine albicans infection (Acute) QT prolongation (Acute) Right sided abdominal pain (Acute) Simple ovarian cyst (Acute) Diabetic polyneuropathy associated with type 2 diabetes mellitus (Acute) Dementia (Acute) Diabetes type 2, uncontrolled (Acute) Overactive bladder (Acute) Chronic pain of left ankle (Acute) Aortic valve calcification (Acute) Diffuse idiopathic skeletal hyperostosis of cervical spine (Acute) Annual physical exam (Acute) Delayed gastric emptying (Acute) Goiter (Acute) Ankle fracture, left (Acute) Left ankle sprain (Acute) Diabetes mellitus (Acute) Left leg pain (Acute) Swelling of right lower extremity (Acute) Cellulitis of right lower leg (Acute) Right ankle swelling (Acute) Annual physical exam (Acute) Colon cancer screening (Acute) Uninhibited neurogenic bladder (Acute) Urge incontinence of urine (Acute) History of stroke (Acute) Pre-op examination (Acute) Chronic pain syndrome (Acute) Dementia 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 (Acute) Diabetic neuropathy (Acute) UTI (urinary tract infection) (Acute) Insomnia (Acute) Glaucoma (Acute) Migraine (Acute) Acquired hypothyroidism (Acute) Hearing impairment (Acute) Localized swelling, mass and lump, neck (Acute) Urinary tract infection with pyuria (Acute) Elevated LFTs (Acute) Elevated liver enzymes (Acute) Depression (Acute) Anxiety (Acute) Urinary incontinence in female (Acute) Osteoarthritis (Acute) Lumbar spondylosis (Acute) Pure hypercholesterolemia (Acute) Type 2 diabetes mellitus with diabetic polyneuropathy (Acute) Pain of right thumb (Acute) Allergic rhinitis (Acute) Hypertension (Acute) Obesity (BMI 30-39.9) (Acute) Vitamin D deficiency (Acute) Dyslipidemia (Acute) Diabetic 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 type 2 diabetes mellitus (Acute) manager long term care (current) use of insulin (Acute) Dizziness and giddiness (Acute) Orthostatic hypotension (Acute) Past Medical History Medical History Chronic pain syndrome Dementia 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 Diabetic neuropathy Insomnia Glaucoma Migraine Acquired hypothyroidism Hearing impairment COVID-19 vaccine administered CVA (cerebral vascular accident) Blind left eye Localized swelling, mass and lump, neck Urinary tract infection with pyuria Elevated LFTs Elevated liver enzymes Depression Anxiety Urinary incontinence in female Osteoarthritis Lumbar spondylosis Pure hypercholesterolemia Type 2 diabetes mellitus with diabetic polyneuropathy Pain of right thumb Allergic rhinitis Hypertension Obesity (BMI 30-39.9) Vitamin D deficiency Dyslipidemia Diabetic 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 type 2 diabetes mellitus senior living (current) use of insulin Dizziness and giddiness Orthostatic hypotension Family History Family History Father Diabetes Mother Heart problem Brother Diabetes Family history of problems with anesthesia: No Surgical History Surgical History History of carpal tunnel release History of pubovaginal sling Hx of eye surgery Hx of cystoscopy Hx of hysterectomy Hx of cholecystectomy History of esophagogastroduodenoscopy (EGD) Hx of colonoscopy History of Problems with Anesthesia: No Social History Social History Housing: Apartment Are you a primary medicare insurance specialist to a significant other at home: No Do you presently have visiting nurse or other home services: Yes Alcohol intake: never Patient Tobacco Use Status: Never used Tobacco e-Cigarette/Vaping Use: Never Used Second Hand Smoke Exposure: No Use of substances other than those prescribed or required for medical reasons: No Are you DNR?: No Advance Directives: No Advance Directives Information Provided: Yes service: No Current occupational status: disabled Gender identity: Female Cognitive needs: Yes Hearing needs: No Vision needs: Yes Meds Allergies Allergy/AdvReac Type Severity Reaction Status Date / Time francisco Allergy Severe Rash Verified 11/24/23 13:27 Penicillins Allergy Intermediate RASH/HIVES Verified 11/24/23 13:27 Home Medications Medication Instructions Recorded Confirmed Last Taken Type dorzolamide 22.3 mg-timolol 6.8 1 drp ophthalmic (eye) BID 09/27/20 11/24/23 Unknown History mg/mL eye drops quetiapine 25 mg tablet 75 mg PO BEDTIME 09/27/20 11/24/23 Unknown History melatonin 3 mg tablet 6 mg PO BEDTIME PRN Insomnia 05/08/21 11/24/23 Unknown History mirtazapine 30 mg tablet 30 mg PO QPM 01/07/22 11/24/23 Unknown History galcanezumab-gnlm 120 mg/mL 120 mg subcut QMONTH 03/15/22 11/24/23 Unknown History subcutaneous pen injector (Emgality Pen) clonazepam 0.5 mg tablet 1 mg PO BEDTIME 08/29/22 11/24/23 Unknown History blood-glucose transmitter (Dexcom 10/24/22 11/24/23 Unknown History G6 Transmitter device) dorzolamide 2 %-timolol 0.5 % (PF) 1 drp ophthalmic (eye) BID 08/18/23 11/24/23 Unknown History eye drops prednisolone acetate 1 % eye 1 drp ophthalmic (eye) QID 08/18/23 11/24/23 Unknown History drops,suspension mirabegron 50 mg tablet,extended 50 mg PO DAILY 11/20/23 11/24/23 Unknown History release 24 hr (Myrbetriq) Exam Pertinent Lab Results Pertinent Lab Results: Laboratory Tests 11/20/23 11:11 WBC 3.6 L Hgb 13.0 Hct 40.2 Plt Count 121 L Sodium 142 Potassium 4.3 Chloride 106 Carbon Dioxide 30 H BUN 22 H Creatinine 0.79 Narrative Narrative: EKG 07/2023 normal sinus rhythm with horizontal access, long QT interval. No significant change noted from previous EKGs. ECHO 2020 Conclusions: - The left ventricular systolic function is normal. The calculated ejection fraction is 66% by biplane method. - There is mild calcification of the aortic valve. - No obvious valvular pathology seen on this study. Assessment and Plan Assessment Anesthesia Assessment: Chart Reviewed Final Anesthetic Review Family History of Problems with Anesthesia: No History of Problems with Anesthesia: No Documented by User: Giuliano Scott MD 11/25/23 08:54 HPI - Anesthesia Eval Anesthesia Pre-Procedure Meds If Yes to any meds - educate patient: Pt education - increased risk of aspiration (SCOOTER Metzger 2/2.) [facility] Past Medical History Medical History Chronic pain syndrome Dementia 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 Diabetic neuropathy Insomnia Glaucoma Migraine Acquired hypothyroidism Hearing impairment COVID-19 vaccine administered CVA (cerebral vascular accident) Blind left eye Localized swelling, mass and lump, neck Urinary tract infection with pyuria Elevated LFTs Elevated liver enzymes Depression Anxiety Urinary incontinence in female Osteoarthritis Lumbar spondylosis Pure hypercholesterolemia Type 2 diabetes mellitus with diabetic polyneuropathy Pain of right thumb Allergic rhinitis Hypertension Obesity (BMI 30-39.9) Vitamin D deficiency Dyslipidemia Diabetic 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 type 2 diabetes mellitus manager long term care (current) use of insulin Dizziness and giddiness Orthostatic hypotension Family History Family History Father Diabetes Mother Heart problem Brother Diabetes Surgical History Surgical History History of carpal tunnel release History of pubovaginal sling Hx of eye surgery Hx of cystoscopy Hx of hysterectomy Hx of cholecystectomy History of esophagogastroduodenoscopy (EGD) Hx of colonoscopy Social History Social History Housing: Apartment Are you a primary medicare insurance specialist to a significant other at home: No Do you presently have visiting nurse or other home services: Yes Alcohol intake: never Patient Tobacco Use Status: Never used Tobacco e-Cigarette/Vaping Use: Never Used Second Hand Smoke Exposure: No Use of substances other than those prescribed or required for medical reasons: No Are you DNR?: No Advance Directives: No Advance Directives Information Provided: Yes service: No Current occupational status: disabled Gender identity: Female Cognitive needs: Yes Hearing needs: No Vision needs: Yes Meds Allergies Allergy/AdvReac Type Severity Reaction Status Date / Time francisco Allergy Severe Rash Verified 11/24/23 13:27 Penicillins Allergy Intermediate RASH/HIVES Verified 11/24/23 13:27 Home Medications Medication Instructions Recorded Confirmed Last Taken Type dorzolamide 22.3 mg-timolol 6.8 1 drp ophthalmic (eye) BID 09/27/20 11/24/23 Unknown History mg/mL eye drops quetiapine 25 mg tablet 75 mg PO BEDTIME 09/27/20 11/24/23 Unknown History melatonin 3 mg tablet 6 mg PO BEDTIME PRN Insomnia 05/08/21 11/24/23 Unknown History mirtazapine 30 mg tablet 30 mg PO QPM 01/07/22 11/24/23 Unknown History galcanezumab-gnlm 120 mg/mL 120 mg subcut QMONTH 03/15/22 11/24/23 Unknown History subcutaneous pen injector (Emgality Pen) clonazepam 0.5 mg tablet 1 mg PO BEDTIME 08/29/22 11/24/23 Unknown History blood-glucose transmitter (Dexcom 10/24/22 11/24/23 Unknown History G6 Transmitter device) dorzolamide 2 %-timolol 0.5 % (PF) 1 drp ophthalmic (eye) BID 08/18/23 11/24/23 Unknown History eye drops prednisolone acetate 1 % eye 1 drp ophthalmic (eye) QID 08/18/23 11/24/23 Unknown History drops,suspension mirabegron 50 mg tablet,extended 50 mg PO DAILY 11/20/23 11/24/23 Unknown History release 24 hr (Myrbetriq) Exam Airway Mallampati Class: II TM Dist: <=3cm Neck ROM: Full Denture: Upper and Lower Heart: ok Lungs: ok Assessment and Plan Assessment Anesthesia Assessment: Anesthesia Plan Discussed Final Anesthetic Review NPO: Yes ASA Class: III Final Preanesthetic Review: No Changes in Pt Med Stat, Meds/Allgs Chart Reviewed, Consent Obtained/Reviewed and Anes Risks/Benef Reviewed Patient Risk: High Procedure Risk: Low Anesthetic Plan Anesthetic Plan: MAC: and Agree w/ Assess. and Plan Disposition: Standard PACU
[2023-11-25] VITALS (7 sets, daily range): BP systolic 114–129; BP diastolic 60–77; PULSE 70–81; RESP 16–18; TEMP 36.1–36.5; O2SAT 95–97; BMI 34.2
--- NOTE | 2023-11-25 08:54 | MHC.SHP ---
Pre-Procedural Eval Section A - 24 Hr Update-Section A only Date of Service: 11/25/23 The patient is an INPATIENT: No The patient has been examined within 24 hours of the surgical procedure. The History & Physical has been completed within 30 days and I have reviewed it.: Yes Section B - Complete if H&P > 30 days Chief Complaint: Overactive bladder Allergies: Allergies Allergy/AdvReac Type Severity Reaction Status Date / Time francisco Allergy Severe Rash Verified 11/24/23 13:27 Penicillins Allergy Intermediate RASH/HIVES Verified 11/24/23 13:27 Plan I have reviewed the history and physical and performed a pertinent physical examination on my patient. No changes have occurred unless specified. Cystoscopy, Bladder Botox injection. Time Spent With Patient Time: Total time managing care of this patient today ____ minutes.
--- NOTE | 2023-11-25 09:35 | W.PM.OPN ---
Operative Note Operative Note Date of Service: 11/25/23 Narrative: PREOP DIAGNOSIS: Overactive Bladder (OAB) POSTOP DIAGNOSIS: Overactive Bladder (OAB) PROCEDURE: CYSTOSCOPY, BLADDER BOTOX INJECTION 100 UNITS SURGEON: Charlie Jones MD ANESTHESIA: MAC Details of procedure: The patient was brought into the operating room placed on the OR table in supine position. Levaquin 500 mg IV. IV sedation was administered. The patient was repositioned into lithotomy position, prepped and draped in the usual sterile fashion. Time-out was done per protocol. 2% lidocaine urojet was passed transurethrally into the bladder. A 22 fr cystoscope was placed transurethrally into the bladder. The right and left ureteral orifices were visualized in dependent position due to cystocele.. There were moderate trabeculations noted. There were no suspicious bladder lesions seen. The Botox 100 units was mixed with 10 cc of normal saline and injected transurethrally 1/2 cc to 1 cc per injection into the posterior bladder wall behind the trigone. The cystoscope was removed. 2% lidocaine urojet was passed transurethrally into the bladder. The patient was brought out of anesthesia and taken to recovery in stable condition. Complications: None Drains: none
== END 2023-11-25 10:50 | disposition home or self-care (01) ==
PROVIDERS: PCP Internal Medicine; Visit Provider Urology
PROC: 3E0K8GC Introduction of Other Therapeutic Substance into Genitourinary Tract, Via Natural or Artificial Opening Endoscopic (ICD-10-PCS; CPT 52287; principal; 2023-11-25 08:40)
DX: N32.81 Overactive bladder (principal); R32 Unspecified urinary incontinence; G89.4 Chronic pain syndrome; I10 Essential (primary) hypertension; I95.1 Orthostatic hypotension; E11.319 Type 2 diabetes mellitus with unspecified diabetic retinopathy without macular edema; E11.42 Type 2 diabetes mellitus with diabetic polyneuropathy; G31.09 Other frontotemporal neurocognitive disorder; F02.818 Dementia in other diseases classified elsewhere, unspecified severity, with other behavioral disturbance; H54.62 Unqualified visual loss, left eye, normal vision right eye; Z86.73 Personal history of transient ischemic attack (TIA), and cerebral infarction without residual deficits; Z79.82 Long term (current) use of aspirin; Z79.85 Long-term (current) use of injectable non-insulin antidiabetic drugs; Z79.899 Other long term (current) drug therapy; Z79.4 Long term (current) use of insulin; Z96.41 Presence of insulin pump (external) (internal); Z88.0 Allergy status to penicillin; Z98.890 Other specified postprocedural states
CPT/HCPCS: 52287; J0585; J1956; J2704

== ENCOUNTER → 2023-11-25 07:09 | Outpatient (BNV) | payer OTHER, SELFPAY | PROVIDERS: PCP Internal Medicine; Visit Provider Urology | DX: N32.81 Overactive bladder (principal) | CPT/HCPCS: 52287 ==

== ENCOUNTER 2023-12-15 10:02 | Outpatient (AMB) | payer OTHER, SELFPAY ==
--- NOTE | 2023-12-15 10:14 | AM.OFFVISNUR ---
Intake Intake Visit Reasons: 2 wks PVR (botox) Allergies francisco Allergy (Severe, Verified 11/24/23 13:27) Rash Penicillins Allergy (Intermediate, Verified 11/24/23 13:27) RASH/HIVES Office Procedures Post Void Residual Post Residual Void Details: patient presents to office for PVR s/p botox in OR on 11/25/23. Patient able to void, PVR 0mls. Patient stated small improvement of symptoms, bladder pain less, but new symptoms of dribbling urine and urgency and frequency. Urinalysis done- no infection. Let pt know blood sugars being high can also cause increased urination and urgency/frequency. Adivsed patient slightly dehydrated as well to increase lots of water. Post op appt already booked. Patient aware and agreeable Post Void Residual (PVR): 0 [id number] Void Residual by ultrasound Results AMB Urinalysis, Automated UA Leukoctes 0 Benjamin/uL Last Edit by Anson Bowman LPN on 12/15/23 10:31 UA Nitrite Negative Last Edit by Ansno Bowman LPN on 12/15/23 10:31 UA Urobilinogen 0 mg/dL Last Edit by Anson Bowman LPN on 12/15/23 10:31 UA Protein 15 mg/dL Last Edit by Anson Bowman LPN on 12/15/23 10:31 UA pH 5.5 Last Edit by Anson Bowman LPN on 12/15/23 10:31 UA Blood 0 Alexandr/uL Last Edit by Anson Bowman LPN on 12/15/23 10:31 UA Specific [place] 1.025 Last Edit by Anson Bowman LPN on 12/15/23 10:31 UA Ketone Negative Last Edit by Anson Bowman LPN on 12/15/23 10:31 UA Bilirubin 0 mg/dL Last Edit by Anson Bowman LPN on 12/15/23 10:31 UA Glucose 0 mg/dL Last Edit by Anson Bowman LPN on 12/15/23 10:31 Coding CPT Codes Post Residual Void - PVR CPT Code: 87116-[id number] Void Residual by ultrasound ([id number]) Assessment & Plan Assessment & Plan Orders: Orders AMB Post Void Residual by ultrasound Today N31.9 - Neuromuscular dysfunction of bladder, unspecified, N32.81 - Overactive bladder AMB Urinalysis Automated Today N32.81 - Overactive bladder
== END 2023-12-15 10:31 | disposition home or self-care (01) ==
PROVIDERS: PCP Internal Medicine; Visit Provider Urology
DX: N32.81 Overactive bladder (principal)

== ENCOUNTER → 2023-12-15 10:02 | Outpatient (BNVA) | payer OTHER, SELFPAY | PROVIDERS: PCP Internal Medicine; Visit Provider Urology | DX: N31.9 Neuromuscular dysfunction of bladder, unspecified (principal); N32.81 Overactive bladder | CPT/HCPCS: 51798; 81003 ==

== ENCOUNTER 2024-02-04 12:09 | Outpatient (AMB) | payer OTHER, SELFPAY ==
--- NOTE | 2024-02-04 12:13 | A.OFFVIS_ITS ---
Vital Signs 02/04/24 12:24 Height 5 ft Weight 159 lb 2.78 oz BMI 31.1 BP 118/64 Blood Pressure Location Lt brachial Position Sitting Pulse 91 Intake Visit Reasons: 6 month follow up Intake Note: Debo returns to in office 6 months follow up. CC: Patient states she is doing very good from GI standpoint. Denies GI symptoms. Grocery Supervisor Required: No Accompanied by: Daughter Allergies francisco Allergy (Severe, Verified 02/04/24 14:18) Rash Penicillins Allergy (Intermediate, Verified 02/04/24 14:18) RASH/HIVES HPI HPI 6 month follow up: Details: Assessment & Plan (1) Gastroparesis: Comment: Trulicity in other medications are likely contributing to this and her chronic nausea and vomiting Code(s): K31.84 - Gastroparesis Plan: Syrian #dtr translates per pt The procedure should be repeated in 5 years if her health permits. The procedure was well tolerated. The results were explained and the patient is agreeable to the follow-up interval as stated. The bowel pattern has returned to normal. Education was provided to tell any 1st degree relatives about their findings to be sure that they are screened by age 45. Educated that they will be put on a recall list when it is time for their repeat scope but should they move out of state or away from the hospital they will need to remember along with their primary to repeat the procedure in a timely fashion to avoid any adverse 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s. Despite multiple attempts she could not tolerate the Reglan, they seem to feel it makes her sugar go up. We will discontinue it and she is counseled to eat smaller more frequent meals and will try to keep this system moving from below with the constipation medications. With this in mind she continues on her Trulance and bisacodyl, magnesium oxide, fiber therapy, pantoprazole 40 mg twice a day, and simethicone. She is prescribed Zofran through her primary care provider. She does have many other medications that are probably contributing to her gastric motility problems including Trulicity,. Seroquel, this Zofran, scopolamine patches hydroxy seen. Because she does not know what happened with the midodrine added back in and I will give a courtesy prescription and will see if this improves both her dizziness and her nausea and vomiting the reporting. If it does I will ask him to go back to the regional prescriber and have them maintain the dose. I am not sure if this was intentional or just an omission because of missed appointments. It could be noted that Seroquel also causes orthostatic hypotension as a potential adverse event. As always, I try to keep patient on their diabetic medications but I do question the use of medications such as Trulicity for patient who has gastroparesis and establish nausea and vomiting is a chronic problem. This should be seriously considered by the prescriber. Return office visit in 6 months. (2) Chronic idiopathic constipation: Code(s): K59.04 - Chronic idiopathic constipation (3) GERD (gastroesophageal reflux disease): Code(s): K21.9 - Gastro-esophageal reflux disease without esophagitis Qualifiers: Esophagitis presence: without esophagitis Qualified Code(s): K21.9 - Gastro-esophageal reflux disease without esophagitis (4) Tubular adenoma of colon: Comment: 2022 scope= TA repeat 5 years Code(s): D12.6 - Benign neoplasm of colon, unspecified Medications: Refilled simethicone (Anti-Gas Ultra Strength) 180 mg PO QID 120 caps 5RF pantoprazole 40 mg PO BID 180 tabs 2RF midodrine do not give last dose of day after 6PM or within 4 hrs of bedtime 10 mg PO TID 90 tabs 3RF R42 - Dizziness and giddiness plecanatide (Trulance) 3 mg PO DAILY 30 tabs 6RF K59.04 - Chronic idiopathic constipation Discontinued metoclopramide HCl Discontinued Reason: Patient Refused 5 mg PO QID 120 tabs 6RF K31.84 - Gastroparesis TODAY'S VISIT Syrian #dtr translates per pt request. She continues on Trulicity, but her N/V has been better - unsure if this is r/t the midodrine effecting the dizziness. They found this very helpful, which is good but I should not be the provider giving refills of this and I will give a temporary supply and then defer to the PCP. As always, I try to keep patient on their diabetic medications but I do question the use of medications such as Trulicity for patient who has gastroparesis and establish nausea and vomiting is a chronic problem. This should be seriously considered by the prescriber She IS having severe GERD. This is directly r/t the gastroparesis, and I'm unsure how much we can do to offset this. However i will try changing from pantoprazole bid to Aciphex bid. The trulance is moving her bowels well. ROV 6 mos. PFS Medical History Dizziness Nausea and vomiting Sinusitis Charmaine albicans infection Right sided abdominal pain Diabetic polyneuropathy associated with type 2 diabetes mellitus Dementia Annual physical exam Ankle fracture, left Left ankle sprain Type 2 diabetes mellitus with diabetic polyneuropathy Left leg pain Swelling of right lower extremity Cellulitis of right lower leg Right ankle swelling Annual physical exam UTI (urinary tract infection) Localized swelling, mass and lump, neck Urinary tract infection with pyuria Urinary incontinence in female Pain of right thumb Elevated LFTs Elevated liver enzymes History of stroke Pre-op examination Colon cancer screening Chronic pain syndrome Dementia 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 Diabetic neuropathy Insomnia Glaucoma Migraine Acquired hypothyroidism Hearing impairment COVID-19 vaccine administered CVA (cerebral vascular accident) Blind left eye Depression Anxiety Osteoarthritis Lumbar spondylosis Pure hypercholesterolemia Allergic rhinitis Hypertension Obesity (BMI 30-39.9) Vitamin D deficiency Dyslipidemia Diabetic 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 type 2 diabetes mellitus care home (current) use of insulin Dizziness and giddiness Orthostatic hypotension Surgical History History of carpal tunnel release History of pubovaginal sling Hx of eye surgery Hx of cystoscopy Hx of hysterectomy Hx of cholecystectomy History of esophagogastroduodenoscopy (EGD) Hx of colonoscopy Family History Father Diabetes Mother Heart problem Brother Diabetes Social History Housing: Apartment Are you a primary career based intervention coordinator to a significant other at home: No Do you presently have visiting nurse or other home services: Yes Alcohol intake: never Patient Tobacco Use Status: Never used Tobacco e-Cigarette/Vaping Use: Never Used Second Hand Smoke Exposure: No service: No Current occupational status: disabled Gender identity: Female Cognitive needs: Yes Hearing needs: No Vision needs: Yes Female Reproductive History Menstrual Age of Menarche: 10 Review of Systems Const Denies fatigue, Denies fever(s), Denies night sweats, Denies poor appetite and Denies weight loss ENT Reports Normal hearing present, Denies dental pain, Denies dysphagia, Denies hearing loss, Denies mouth pain, Denies odynophagia, Denies throat swelling, Denies tongue swelling and Reports other (Dentition adequate) Card Reports no additional complaints Resp Reports no additional complaints GI Details: Denies abdominal pain, Denies melena, Denies bloating, Denies hematochezia, Reports constipation, Denies GI cramping, Denies dysphagia, Denies excessive flatus, Denies early satiety, Reports heartburn, Denies diarrhea, Reports nausea, Denies odynophagia, Reports vomiting and Denies hematemesis Skin/Breast Denies pruritus, Denies lesions, Denies rash and Denies jaundice Neuro Reports Normal hearing present and Denies Abnormal speech present Endo Denies fatigue Aller/Immun Denies throat swelling and Denies tongue swelling Physical Exam Vital Signs: Last Vital Signs Pulse 91 02/04/24 12:24 BP 118/64 02/04/24 12:24 BMI result Body Mass Index 31.1 Const General: cooperative, no acute distress, well developed and well groomed Nutritional Appearance: well nourished and obese Orientation/consciousness: oriented to person, oriented to place and oriented to time Limitations: language barrier, ambulation with cane and other limitations HEENT Head: Yes normocephalic and Yes atraumatic Eyes General: appearance normal, both eyes and all related structures Pupils: Equal, round and reactive pupils present Neck Neck: Yes normal visual inspection and Yes no lymphadenopathy Thyroid: Thyroid normal Resp Effort & Inspection: normal respiratory effort and able to speak in complete sentences Auscultation: clear to auscultation bilaterally Cardio Rate: regular rate Rhythm: regular rhythm Heart sounds: Normal, physiologic split S2 sound present Peripheral pulses: radial pulses present and posterior tibial pulses present GI Inspection: No distended, No Abdominal panniculus present and Yes obesity Palpation (GI): Soft to palpation, nontender, no guarding, not rigid and No hepatosplenomegaly present Percussion: Yes normal to percussion Auscultation: normal bowel sounds Rectal Exam - Female: deferred Skin General skin exam: no rashes or lesions noted, turgor normal, skin not dry, no jaundice, No spider nevi and no striae Rashes: no rashes Nails: normal Neuro General: oriented to person, oriented to place and oriented to time Cranial nerves: Yes Equal, round and reactive pupils present and Yes Normal hearing present Speech: No Abnormal speech present Extrem General: Yes normal to inspection, No clubbing, No cyanosis and No edema Psych Appearance: grossly normal and well kempt Mental Status: mental status grossly normal Speech and movement: Normal speech and movement present Affect: normal affect Attitude: cooperative Thought process: Normal thought process present and not confabulating Thought content: Normal thought content present Insight: Limited insight present (Psych) Judgement: Limited judgement present (Psych) Assessment & Plan Assessment & Plan (1) Gastroparesis: Comment: Trulicity in other medications are likely contributing to this and her chronic nausea and vomiting, PATIENT CAN NOT TOLERATE REGLAN Code(s): K31.84 - Gastroparesis Category: Medical (2) Chronic idiopathic constipation: Code(s): K59.04 - Chronic idiopathic constipation Category: Medical (3) GERD (gastroesophageal reflux disease): Code(s): K21.9 - Gastro-esophageal reflux disease without esophagitis Category: Medical Qualifiers: Esophagitis presence: without esophagitis Qualified Code(s): K21.9 - Gastro-esophageal reflux disease without esophagitis (4) Rectocele: Code(s): N81.6 - Rectocele Category: Medical (5) Dementia 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 She continues on Trulicity, but her N/V has been better - unsure if this is r/t the midodrine effecting the dizziness. They found this very helpful, which is good but I should not be the provider giving refills of this and I will give a temporary supply and then defer to the PCP. As always, I try to keep patient on their diabetic medications but I do question the use of medications such as Trulicity for patient who has gastroparesis and establish nausea and vomiting is a chronic problem. This should be seriously considered by the prescriber She IS having severe GERD. This is directly r/t the gastroparesis, and I'm unsure how much we can do to offset this. However i will try changing from pantoprazole bid to Aciphex bid. The lashaun is moving her bowels well. ROV 6 mos. Medications: New midodrine 10 mg PO TID 90 tabs 1RF I95.1 - Orthostatic hypotension, R42 - Dizziness and giddiness rabeprazole (AcipHex) 20 mg PO BID 60 tabs 6RF K21.9 - Gastro-esophageal reflux disease without esophagitis Refilled plecanatide (Trulance) 3 mg PO DAILY 30 tabs 6RF K59.04 - Chronic idiopathic constipation simethicone (Anti-Gas Ultra Strength) 180 mg PO QID 120 caps 5RF On Hold sucralfate (Carafate) Hold Comment: Doctor's Order 1 g PO TID 15 days 45 tabs 0RF pantoprazole Hold Comment: Doctor's Order 40 mg PO BID 180 tabs 2RF Coding Level of Care Code Est Pt Level 3 (10432) Diagnoses Gastroparesis K31.84 Chronic idiopathic constipation K59.04 Gastroesophageal reflux disease without esophagitis K21.9 Esophagitis presence: without esophagitis Rectocele N81.6 Dementia 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 F02.81 Orthostatic hypotension I95.1 Dizziness and giddiness R42
[2024-02-04 12:24] VITALS: BP 118/64; PULSE 91; BMI 31.1
== END 2024-02-04 12:50 | disposition home or self-care (01) ==
PROVIDERS: PCP Internal Medicine; Visit Provider Nurse Practitioner
DX: K31.84 Gastroparesis (principal); K59.04 Chronic idiopathic constipation; K21.9 Gastro-esophageal reflux disease without esophagitis; N81.6 Rectocele; I95.1 Orthostatic hypotension; R42 Dizziness and giddiness
CPT/HCPCS: 99213

== ENCOUNTER → 2024-02-04 12:09 | Outpatient (BNVA) | payer OTHER, SELFPAY | PROVIDERS: PCP Internal Medicine; Visit Provider Nurse Practitioner | DX: E11.65 Type 2 diabetes mellitus with hyperglycemia (principal); E11.40 Type 2 diabetes mellitus with diabetic neuropathy, unspecified; E11.21 Type 2 diabetes mellitus with diabetic nephropathy; K31.84 Gastroparesis; K59.04 Chronic idiopathic constipation; K21.9 Gastro-esophageal reflux disease without esophagitis; D12.6 Benign neoplasm of colon, unspecified; N81.6 Rectocele; F02.818 Dementia in other diseases classified elsewhere, unspecified severity, with other behavioral disturbance; I95.1 Orthostatic hypotension; R42 Dizziness and giddiness; Z79.4 Long term (current) use of insulin; Z79.899 Other long term (current) drug therapy | CPT/HCPCS: 82947; 99212 ==

== ENCOUNTER 2024-02-04 14:08 | Outpatient (AMB) | payer OTHER, SELFPAY ==
--- NOTE | 2024-02-04 14:11 | A.OFFVIS_ITS ---
Vital Signs 02/04/24 14:16 Height 5 ft Weight 170 lb 3.15 oz BMI 33.2 BP 108/66 Blood Pressure Location Rt brachial Position Sitting Pulse 91 Pulse Source Pulse Oximeter Intake Visit Reasons: t2dm Intake Note: Patient present today to follow up on Type 2 Diabetes Mellitus. Patient receives DME supplies through: [facility] Patient receives pump supplies through: [facility] Last Diabetic Eye exam: yesterday Last Podiatry Visit: Does not see a [place] Random Glucose: 81 mg/dl HgA1C: 5.5% 11/20/2023 Exterior Designer Required: No Exterior Designer Name: Daughter, refusal signed Information Interpreted: non-clinical only Accompanied by: Daughter Allergies francisco Allergy (Severe, Verified 02/04/24 14:18) Rash Penicillins Allergy (Intermediate, Verified 02/04/24 14:18) RASH/HIVES Medication List - Last Reconciled 02/04/24 by Neil Velazquez MD [DDisposable Underwear Heavy Absorbency Large (2) - Personal As directed] [Disposable Underpad 30 x 30 Heavy Flow As directed] [ADULT DIAPERS/BRIEFS As directed] aspirin 81 mg PO DAILY atogepant (Qulipta) 30 mg PO DAILY betamethasone dipropionate 0.05% 1 appl topical DAILY bisacodyl (Laxative (bisacodyl)) 10 mg (2 x 5 mg) PO BEDTIME blood sugar diagnostic (FreeStyle Lite Strips) 5 times a day blood-glucose meter,continuous (Dexcom G7 Electric Refrigerator Preparer) As directed blood-glucose sensor (Dexcom G7 Sensor device) As directed blood-glucose transmitter (Dexcom G6 Transmitter device) As directed cholecalciferol (vitamin D3) 125 mcg PO DAILY clonazepam 1 mg PO BEDTIME compr.stocking,knee,long,large As directed diaper,brief,adult,disposable (Overnight Underwear Large) As directed PULL UPS donepezil 10 mg PO BEDTIME dorzolamide-timolol (PF) 2-0.5 % 1 drp ophthalmic (eye) BID dorzolamide-timolol 22.3-6.8 mg/mL 1 drp ophthalmic (eye) BID dulaglutide (Trulicity) 0.75 mg (0.5 mL) subcut QWEEK fluoxetine 20 mg PO BID fluticasone propionate 50 mcg/actuation 2 sprays intranasal DAILY PRN gabapentin 300 mg PO TID 30 days hydroxyzine HCl 25 mg PO TID PRN insulin lispro (Humalog U-100 Insulin) 0 - 76 units (0 - 0.76 mL) subcut DAILY insulin pump cart,cont inf,BT (Omnipod Dash Pods (Gen 4) subcutaneous cartridge) USE 2 EA SUBCUTANEOUSLY EVERY 3 DAYS FOR 30 DAYS 2 BOXES PF 10 PODS CHANGE EVERY 3 DAYS insulin pump cart,cont inf,BT (Omnipod Dash Pods (Gen 4) subcutaneous cartridge) DIRECTED insulin pump cartridge 2 ea subcut Q3D 30 days NS Lantus Solostar U-100 Insulin (insulin glargine) 33 units (0.33 mL) subcut DAILY NS latanoprostene bunod 0.024% (Vyzulta) 1 drp ophthalmic (eye) BEDTIME levothyroxine 125 mcg PO QAM magnesium oxide 400 mg PO BEDTIME melatonin 6 mg PO BEDTIME PRN methylcellulose (laxative) (Fiber Therapy (methylcellulose)) 1,000 mg (2 x 500 mg) PO DAILY PRN midodrine 10 mg PO TID mirabegron ER (Myrbetriq) 50 mg PO DAILY mirtazapine 30 mg PO QPM miscellaneous medical supply Wipes miscellaneous; 100 wipebox/ 3 boxes mupirocin 2% topical BID ondansetron 4 mg PO Q8H PRN 15 days pantoprazole 40 mg PO BID pen needle, diabetic (Comfort EZ Pen Isaban) As directed injects 4 times a day [Personal Cleansing Wipes (2) As directed] plecanatide (Trulance) 3 mg PO DAILY quetiapine 75 mg PO BEDTIME rabeprazole (AcipHex) 20 mg PO BID rosuvastatin 40 mg PO DAILY scopolamine base 1 patch transdermal Q3D PRN simethicone (Anti-Gas Ultra Strength) 180 mg PO QID sucralfate (Carafate) 1 g PO TID 15 days [UNDERPADS As directed] HPI Comments Details: Patient is 69 year old female with DM type 2 diagnosed 2002 who presents for management of diabetes. Past medical history:DM2 GERD, depression, hypertension, hyperlipidemia, hypothyroidism. Micro and macrovascular 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s: + neuropathy, +background retinopathy, + nephropathy + microalbumin, no macrovascular disease. Symptoms reported: occasional numbness, tingling, cramping in lower extremities Hypoglycemia: reports hypoglycemia occasionally when does not eat everything that had planned to eat Hyperglycemia: denies urinary frequency, nocturia, polydypsia Continuous glucose monitoring:The last 2 weeks average blood glucose 134 with GMI of 6.5 Less than 1% low or very. 80% in target range of 70-180. 1% high, 3% very high. Some hypoglycemia occuring few times /wk - Humalog via ominipod pump Her total daily insulin use is 34.6 units in 24 hour Basal 95% Bolus 5% Her daily average carbohydrate intake is 34.6 Pump settings Basal rate(s) (units/hour) : ?12 AM to 12 PM 1.5 units / hr 12PM to 12 AM? 1.25 units / hr Bolus setting Insulin Carbohydrate Ratio (s) 12 AM to 12 AM 1:9 Correction Factor / Sensitivity Factor 12 AM? to 12 AM 1:40 Active Insulin Time:? 4 hours Target(s): ?12 AM? to 12 PM? 120 mg/dL Correct above 120 mg/dL Also on Trulicity 1.5 mg q.week Exercise: limited due to balance issues Nutrition - diabetes education: currently sees [facility] [place]: goes regularly Last ophthalmology evaluation: yesterday laser treatment in both eyes in 2020- had surgery this morning Complain of some left lower back pain Laboratory Tests 12/27/21 12/27/21 12/27/21 09:34 09:41 09:41 Creatinine 0.83 Estimated GFR > 60 Hemoglobin A1c % 6.2 Triglycerides 103 Cholesterol 121 LDL Cholesterol, Calc 54 HDL Cholesterol 47 25-OH Vitamin D Total 37.1 TSH 1.26 Free T4 1.01 Microalb/Creat Ratio 22.8 PFSH Medical History Dizziness Nausea and vomiting Sinusitis Charmaine albicans infection Right sided abdominal pain Diabetic polyneuropathy associated with type 2 diabetes mellitus Dementia Annual physical exam Ankle fracture, left Left ankle sprain Type 2 diabetes mellitus with diabetic polyneuropathy Left leg pain Swelling of right lower extremity Cellulitis of right lower leg Right ankle swelling Annual physical exam UTI (urinary tract infection) Localized swelling, mass and lump, neck Urinary tract infection with pyuria Urinary incontinence in female Pain of right thumb Elevated LFTs Elevated liver enzymes History of stroke Pre-op examination Colon cancer screening Chronic pain syndrome Dementia 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 Diabetic neuropathy Insomnia Glaucoma Migraine Acquired hypothyroidism Hearing impairment COVID-19 vaccine administered CVA (cerebral vascular accident) Blind left eye Depression Anxiety Osteoarthritis Lumbar spondylosis Pure hypercholesterolemia Allergic rhinitis Hypertension Obesity (BMI 30-39.9) Vitamin D deficiency Dyslipidemia Diabetic 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 type 2 diabetes mellitus 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 commander (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) use of insulin Dizziness and giddiness Orthostatic hypotension Surgical History History of carpal tunnel release History of pubovaginal sling Hx of eye surgery Hx of cystoscopy Hx of hysterectomy Hx of cholecystectomy History of esophagogastroduodenoscopy (EGD) Hx of colonoscopy Family History Father Diabetes Mother Heart problem Brother Diabetes Social History Housing: Apartment Are you a primary healthcare administrator to a significant other at home: No Do you presently have visiting nurse or other home services: Yes Alcohol intake: never Patient Tobacco Use Status: Never used Tobacco e-Cigarette/Vaping Use: Never Used Second Hand Smoke Exposure: No service: No Current occupational status: disabled Gender identity: Female Cognitive needs: Yes Hearing needs: No Vision needs: Yes Female Reproductive History Menstrual Age of Menarche: 10 Physical Exam Vital Signs: Last Vital Signs Pulse 91 02/04/24 14:16 BP 108/66 02/04/24 14:16 BMI result Body Mass Index 33.2 Assessment & Plan Assessment & Plan (1) Diabetes type 2, uncontrolled: Code(s): E11.65 - Type 2 diabetes mellitus with hyperglycemia Category: Medical Qualifiers: Glycemic state: with hyperglycemia Qualified Code(s): E11.65 - Type 2 diabetes mellitus with hyperglycemia Plan: This is a 67-year-old female with history of type 2 diabetes being managed with an Omnipod 5 pump and Dexcom sensor and Trulicity with excellent improved glycemic control and known microvascular 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s namely retinopathy and neuropathy. Plan is to continue the current therapy with the Omnipod 5.. Would have loosen I;C at 6PM to 1:10 . Pt will see CDE to make change Coding Level of Care Code Est Pt Level 4 (91100) Diagnoses Uncontrolled type 2 diabetes mellitus with hyperglycemia E11.65 Glycemic state: with hyperglycemia
[2024-02-04 14:16] VITALS: BP 108/66; PULSE 91; BMI 33.2
[2024-02-04 14:32] LABS: Glucose, Whole Blood 81 mg/dL (60-115)
== END 2024-02-04 14:36 | disposition home or self-care (01) ==
PROVIDERS: PCP Internal Medicine; Visit Provider Internal Medicine Endocrinology, Diabetes & Metabolism
DX: E11.65 Type 2 diabetes mellitus with hyperglycemia (principal)
CPT/HCPCS: 99214

== ENCOUNTER 2024-02-11 14:57 | Outpatient (AMB) | payer OTHER, SELFPAY ==
--- NOTE | 2024-02-11 15:10 | A.OFFVIS_ITS ---
Intake Intake Visit Reasons: f/u Type 2 DM- Sound Mixer Required: Yes Sound Mixer Language: Operations Clerk Name: Pt's Daughter Information Interpreted: non-clinical & clinical Accompanied by: Daughter Allergies francisco Allergy (Severe, Verified 02/04/24 14:18) Rash Penicillins Allergy (Intermediate, Verified 02/04/24 14:18) RASH/HIVES HPI Comprehensive Diabetes Asmnt Most Recent Diabetes Results: Hemoglobin A1c 6.2 % 06/08/20 Microalb/Creat Ratio 12.2 ug/mg cr (<30) 11/20/23 Cholesterol 103 mg/dL (<200) 11/20/23 HDL Cholesterol 44 mg/dL (>40) 11/20/23 Triglycerides 100 mg/dL (<150) 11/20/23 Creatinine 0.79 mg/dL (0.5-1.4) 11/20/23 Blood Urea Nitrogen 22 mg/dL (9-16) H 11/20/23 Sodium 142 mmol/L (135-145) 11/20/23 Potassium 4.3 mmol/L (3.3-5.1) 11/20/23 Chloride 106 mmol/L (96-108) 11/20/23 Carbon Dioxide 30 mmol/L (22-29) H 11/20/23 Calcium 9.4 mg/dL (8.4-10.2) 11/20/23 AST 46 U/L (5-31) H 11/20/23 ALT 38 U/L (0-31) H 11/20/23 Total Protein 7.2 g/dL (6.5-8.0) 11/20/23 Albumin 3.9 g/dL (3.5-5.0) 11/20/23 [facility] Medical History Dizziness Nausea and vomiting Sinusitis Charmaine albicans infection Right sided abdominal pain Diabetic polyneuropathy associated with type 2 diabetes mellitus Dementia Annual physical exam Ankle fracture, left Left ankle sprain Type 2 diabetes mellitus with diabetic polyneuropathy Left leg pain Swelling of right lower extremity Cellulitis of right lower leg Right ankle swelling Annual physical exam UTI (urinary tract infection) Localized swelling, mass and lump, neck Urinary tract infection with pyuria Urinary incontinence in female Pain of right thumb Elevated LFTs Elevated liver enzymes History of stroke Pre-op examination Colon cancer screening Chronic pain syndrome Dementia 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 Diabetic neuropathy Insomnia Glaucoma Migraine Acquired hypothyroidism Hearing impairment COVID-19 vaccine administered CVA (cerebral vascular accident) Blind left eye Depression Anxiety Osteoarthritis Lumbar spondylosis Pure hypercholesterolemia Allergic rhinitis Hypertension Obesity (BMI 30-39.9) Vitamin D deficiency Dyslipidemia Diabetic 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 type 2 diabetes mellitus assisted (current) use of insulin Dizziness and giddiness Orthostatic hypotension Surgical History History of carpal tunnel release History of pubovaginal sling Hx of eye surgery Hx of cystoscopy Hx of hysterectomy Hx of cholecystectomy History of esophagogastroduodenoscopy (EGD) Hx of colonoscopy Family History Father Diabetes Mother Heart problem Brother Diabetes Social History Housing: Apartment Are you a primary healthcare network pricing consultant to a significant other at home: No Do you presently have visiting nurse or other home services: Yes Alcohol intake: never Patient Tobacco Use Status: Never used Tobacco e-Cigarette/Vaping Use: Never Used Second Hand Smoke Exposure: No service: No Current occupational status: disabled Gender identity: Female Cognitive needs: Yes Hearing needs: No Vision needs: Yes Female Reproductive History Menstrual Age of Menarche: 10 Assessment & Plan Assessment & Plan (1) Diabetes type 2, uncontrolled: Code(s): E11.65 - Type 2 diabetes mellitus with hyperglycemia Qualifiers: Glycemic state: with hyperglycemia Qualified Code(s): E11.65 - Type 2 diabetes mellitus with hyperglycemia Plan: Patient presents for pump training for? Omnipod Dash with Dexcom G6 Patient's daughter stated patient is being treated for retinopathy in left eye Patient's last A1c 6.9% on 03/25/2023 The following topics were reviewed today: -?Omnipod 5 verses Omnipod dash - Sensor setting (if applicable) ??? High Alert: 280 mg/dl ??? Low Alert: 80 mg/dl Patient's average glucose for the past 2 weeks 131 mg/dL Above target 15% At target 87% Below target 1% Patient here for insulin pump adjustment. Dr. Velazquez recommended insulin to carb ratio be changed from 18:00 to 00:00 to 1:10, due to some postprandial hypoglycemic events Patient will set up appointment to set up Dexcom G6 baltazar on patient's smart phone next week Reviewed with patient and her daughter how to treat hypoglycemia with rule of 15s Overall patient's glucose control is good Reviewed with patient importance of changing insulin delivery set/Pod every 72 hours, with site rotation. Patient given the opportunity to ask questions about pump function changes made to patient's insulin pump at today's visit, see below Basal rate(s) (units/hour) : ?12 AM to 10 AM 1.25 units / hr 10AM to 12 AM? 1.25 units / hr Bolus setting Insulin Carbohydrate Ratio (s) 12 AM to 12 AM 1:9 New 6 PM to 12 AM 1:10 Correction Factor / Sensitivity Factor 12 AM? to 12 AM 1:40 Active Insulin Time:? 4 hours Target(s): ?12 AM? to 12 PM? 120 mg/dL Correct above 120 mg/dL Patient Instructions: Patient has follow-up appointment scheduled for 02/16/2024 at 14:30 for Dexcom baltazar set up Coding Level of Care Code Est Pt Level 1 (05389) Diagnoses Uncontrolled type 2 diabetes mellitus with hyperglycemia E11.65 Glycemic state: with hyperglycemia
== END 2024-02-11 15:14 | disposition home or self-care (01) ==
PROVIDERS: PCP Internal Medicine; Visit Provider Registered Nurse Diabetes Educator
DX: E11.65 Type 2 diabetes mellitus with hyperglycemia (principal)

== ENCOUNTER → 2024-02-11 14:57 | Outpatient (BNVA) | payer OTHER, SELFPAY | PROVIDERS: PCP Internal Medicine; Visit Provider Registered Nurse Diabetes Educator | DX: Z46.81 Encounter for fitting and adjustment of insulin pump (principal); E11.65 Type 2 diabetes mellitus with hyperglycemia; Z79.4 Long term (current) use of insulin | CPT/HCPCS: 99211 ==

== ENCOUNTER 2024-02-16 13:06 | Outpatient (AMB) | payer OTHER, SELFPAY ==
--- NOTE | 2024-02-16 13:07 | A.OFFVIS_ITS ---
Intake Visit Reasons: 3m follow up after botox Intake Note: Patient is present for Follow Up Botox post op Urology Med: Myrbetriq Antibiotic Allergy: Penicillin Blood Thinner: Aspirin [facility]: [facility] 0 mL Allergies francisco Allergy (Severe, Verified 02/04/24 14:18) Rash Penicillins Allergy (Intermediate, Verified 02/04/24 14:18) RASH/HIVES HPI Comments Details: 02/16/2024--Debo is a 69-year-old female who presents today to the office for a follow-up. She had repeat Botox 100 units on 11/25/2023. The patient is with her daughter who interprets for her. She states that she continues to leak. She is getting the urge every 1-1/2 hours and leaks before getting to the bathroom and needs to change her pull up several times during the day. She denies dysuria. The patient voided prior to coming into the office room. Bladder scan PVR 0 mL. Comorbidity diabetes. Plan discussed Botox 200 units. Review of chart 11/13/23---Debo is followed for OAB, spastic neurogenic bladder with a past medical history of anxiety, dementia, CVA, diabetic neuropathy, HLD, HTN, insomnia, diabetes, osteoarthritis, thyroid disease. She was last seen by me on 06/09/23 for urinary frequency. She was treated for a UTI at that time. She has had bladder Botox injection 100 units on 10/08/2022. She had improvement in her bladder symptoms. She failed PO bladder meds in the past. She is on Myrbetriq 50 mg daily and continues to leak with associated urge. Schedule Botox Bladder injection 100 units under MAC. Consent obtained. Pt to start bactrim DS 2 days prior to botox procedure. I reviewed the renal US results from 09/30/2022 revealed normal findings. I reviewed the urine culture results from 11/07/2022 revealed 10,000 to 50,000 cfu/mL mixed bacterial lin. 02/16/24: Plan: Schedule Botox 200 units as outpatient [facility] Medical History Dizziness Nausea and vomiting Sinusitis Charmaine albicans infection Right sided abdominal pain Diabetic polyneuropathy associated with type 2 diabetes mellitus Dementia Annual physical exam Ankle fracture, left Left ankle sprain Type 2 diabetes mellitus with diabetic polyneuropathy Left leg pain Swelling of right lower extremity Cellulitis of right lower leg Right ankle swelling Annual physical exam UTI (urinary tract infection) Localized swelling, mass and lump, neck Urinary tract infection with pyuria Urinary incontinence in female Pain of right thumb Elevated LFTs Elevated liver enzymes History of stroke Pre-op examination Colon cancer screening Chronic pain syndrome Dementia 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 Diabetic neuropathy Insomnia Glaucoma Migraine Acquired hypothyroidism Hearing impairment COVID-19 vaccine administered CVA (cerebral vascular accident) Blind left eye Depression Anxiety Osteoarthritis Lumbar spondylosis Pure hypercholesterolemia Allergic rhinitis Hypertension Obesity (BMI 30-39.9) Vitamin D deficiency Dyslipidemia Diabetic 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 type 2 diabetes mellitus 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 Dizziness and giddiness Orthostatic hypotension Surgical History History of carpal tunnel release History of pubovaginal sling Hx of eye surgery Hx of cystoscopy Hx of hysterectomy Hx of cholecystectomy History of esophagogastroduodenoscopy (EGD) Hx of colonoscopy Family History Father Diabetes Mother Heart problem Brother Diabetes Social History Housing: Apartment Are you a primary resident care provider to a significant other at home: No Do you presently have visiting nurse or other home services: Yes Alcohol intake: never Patient Tobacco Use Status: Never used Tobacco e-Cigarette/Vaping Use: Never Used Second Hand Smoke Exposure: No service: No Current occupational status: disabled Gender identity: Female Cognitive needs: Yes Hearing needs: No Vision needs: Yes Female Reproductive History Menstrual Age of Menarche: 10 Review of Systems Const All systems reviewed & are unremarkable except as noted in HPI and below Reports no additional complaints Eyes Reports no additional complaints ENT Reports no additional complaints Card Reports no additional complaints Resp Reports no additional complaints GI Reports no additional complaints Reports as per HPI Musc Reports no additional complaints Skin/Breast Reports system reviewed and no additional complaints, except as documented Neuro Reports no additional complaints Psych Reports no additional complaints Endo Reports no additional complaints Ethan/Lymph Reports no additional complaints Aller/Immun Reports no additional complaints Office Procedures Post Void Residual Post Residual Void Post Void Residual (PVR): 0 32616-Cyzo Void Residual by ultrasound Assessment & Plan Assessment & Plan (1) Overactive bladder: Code(s): N32.81 - Overactive bladder Category: Medical (2) Urge incontinence of urine: Code(s): N39.41 - Urge incontinence Category: Medical (3) Spastic neurogenic bladder: Code(s): N31.8 - Other neuromuscular dysfunction of bladder Category: Medical Plan Schedule Botox 200 units as outpatient, start Bactrim ds 1 tab 2 days prior to procedure Orders: Orders AMB Post Void Residual by ultrasound Today N39.8 - Other specified disorders of urinary system Patient Instructions: The patient had an opportunity to ask questions regarding treatment plan. The patient expressed understanding and agreement with the above treatment plan. The patient is aware they should contact our office by phone for worsening of their current condition or the appearance of new symptoms. Compliance is encouraged with any medications and followup testing that is ordered. It is a privilege to be allowed the opportunity to participate in the urologic care of your patient. If you have any questions or concerns regarding treatment for the above conditions please do not hesitate to contact me. The office telephone contact is [phone]. This note is constructed in part using voice recognition software. While every effort has been made to ensure accuracy animal geneticist errors may have been included. Yours sincerely, Charlie Jones MD Coding Level of Care Code Est Pt Level 4 (33366) Diagnoses Overactive bladder N32.81 Urge incontinence of urine N39.41 Spastic neurogenic bladder N31.8 CPT Codes Post Residual Void - PVR CPT Code: 79560-Azpe Void Residual by ultrasound ([id number])
== END 2024-02-16 13:26 | disposition home or self-care (01) ==
PROVIDERS: PCP Internal Medicine; Visit Provider Urology
DX: N32.81 Overactive bladder (principal); N39.41 Urge incontinence; N31.8 Other neuromuscular dysfunction of bladder
CPT/HCPCS: 99214

== ENCOUNTER → 2024-02-16 13:06 | Outpatient (BNVA) | payer OTHER, SELFPAY | PROVIDERS: PCP Internal Medicine; Visit Provider Urology | DX: E11.65 Type 2 diabetes mellitus with hyperglycemia (principal); N32.81 Overactive bladder; N39.41 Urge incontinence; N31.8 Other neuromuscular dysfunction of bladder | CPT/HCPCS: 51798; 99211; 99212 ==

== ENCOUNTER 2024-02-16 13:28 | Outpatient (AMB) | payer OTHER, SELFPAY ==
--- NOTE | 2024-02-16 14:55 | MHC.AMDMED ---
Intake Intake Visit Reasons: dexcom baltazar setup Supervisor Alum Plant Required: Yes Supervisor [employer]um Plant Language: Hairspring I Inspector Name: Pt's daughter Mary Information Interpreted: non-clinical & clinical Accompanied by: Daughter Allergies francisco Allergy (Severe, Verified 02/04/24 14:18) Rash Penicillins Allergy (Intermediate, Verified 02/04/24 14:18) RASH/HIVES HPI Comprehensive Diabetes Asmnt Most Recent Diabetes Results: Microalb/Creat Ratio 12.2 ug/mg cr (<30) 11/20/23 Cholesterol 103 mg/dL (<200) 11/20/23 HDL Cholesterol 44 mg/dL (>40) 11/20/23 Triglycerides 100 mg/dL (<150) 11/20/23 Creatinine 0.79 mg/dL (0.5-1.4) 11/20/23 Blood Urea Nitrogen 22 mg/dL (9-16) H 11/20/23 Sodium 142 mmol/L (135-145) 11/20/23 Potassium 4.3 mmol/L (3.3-5.1) 11/20/23 Chloride 106 mmol/L (96-108) 11/20/23 Carbon Dioxide 30 mmol/L (22-29) H 11/20/23 Calcium 9.4 mg/dL (8.4-10.2) 11/20/23 AST 46 U/L (5-31) H 11/20/23 ALT 38 U/L (0-31) H 11/20/23 Total Protein 7.2 g/dL (6.5-8.0) 11/20/23 Albumin 3.9 g/dL (3.5-5.0) 11/20/23 [facility] Medical History Dizziness Nausea and vomiting Sinusitis Charmaine albicans infection Right sided abdominal pain Diabetic polyneuropathy associated with type 2 diabetes mellitus Dementia Annual physical exam Ankle fracture, left Left ankle sprain Type 2 diabetes mellitus with diabetic polyneuropathy Left leg pain Swelling of right lower extremity Cellulitis of right lower leg Right ankle swelling Annual physical exam UTI (urinary tract infection) Localized swelling, mass and lump, neck Urinary tract infection with pyuria Urinary incontinence in female Pain of right thumb Elevated LFTs Elevated liver enzymes History of stroke Pre-op examination Colon cancer screening Chronic pain syndrome Dementia 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 Diabetic neuropathy Insomnia Glaucoma Migraine Acquired hypothyroidism Hearing impairment COVID-19 vaccine administered CVA (cerebral vascular accident) Blind left eye Depression Anxiety Osteoarthritis Lumbar spondylosis Pure hypercholesterolemia Allergic rhinitis Hypertension Obesity (BMI 30-39.9) Vitamin D deficiency Dyslipidemia 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 Dizziness and giddiness Orthostatic hypotension Surgical History History of carpal tunnel release History of pubovaginal sling Hx of eye surgery Hx of cystoscopy Hx of hysterectomy Hx of cholecystectomy History of esophagogastroduodenoscopy (EGD) Hx of colonoscopy Family History Father Diabetes Mother Heart problem Brother Diabetes Social History Housing: Apartment Are you a primary healthcare associate to a significant other at home: No Do you presently have visiting nurse or other home services: Yes Alcohol intake: never Patient Tobacco Use Status: Never used Tobacco e-Cigarette/Vaping Use: Never Used Second Hand Smoke Exposure: No service: No Current occupational status: disabled Gender identity: Female Cognitive needs: Yes Hearing needs: No Vision needs: Yes Female Reproductive History Menstrual Age of Menarche: 10 Assessment & Plan Assessment & Plan (1) Diabetes type 2, uncontrolled: Code(s): E11.65 - Type 2 diabetes mellitus with hyperglycemia Qualifiers: Glycemic state: with hyperglycemia Qualified Code(s): E11.65 - Type 2 diabetes mellitus with hyperglycemia Plan: Set up Dexcom G6 baltazar on patient's smart phone in anticipation of starting Omnipod 5 Patient Instructions: Patient will call when she receives Omnipod 5 Coding Level of Care Code Est Pt Level 1 (48393) Diagnoses Uncontrolled type 2 diabetes mellitus with hyperglycemia E11.65 Glycemic state: with hyperglycemia
== END 2024-02-16 14:53 | disposition home or self-care (01) ==
PROVIDERS: PCP Internal Medicine; Visit Provider Registered Nurse Diabetes Educator
DX: E11.65 Type 2 diabetes mellitus with hyperglycemia (principal)

== ENCOUNTER 2024-02-23 14:33 | Outpatient (AMB) | payer OTHER, SELFPAY ==
--- NOTE | 2024-02-23 16:10 | MHC.AMDMED ---
Intake Intake Visit Reasons: Set up pump/CONFIRMED Health Information Assistant Required: Yes Health Information Assistant Language: Electrical Sign Servicer Name: Mary Pt daughter Allergies francisco Allergy (Severe, Verified 02/04/24 14:18) Rash Penicillins Allergy (Intermediate, Verified 02/04/24 14:18) RASH/HIVES HPI Comprehensive Diabetes Asmnt Most Recent Diabetes Results: No Data to Display PFSH Medical History Dizziness Nausea and vomiting Sinusitis Charmaine albicans infection Right sided abdominal pain Diabetic polyneuropathy associated with type 2 diabetes mellitus Dementia Annual physical exam Ankle fracture, left Left ankle sprain Type 2 diabetes mellitus with diabetic polyneuropathy Left leg pain Swelling of right lower extremity Cellulitis of right lower leg Right ankle swelling Annual physical exam UTI (urinary tract infection) Localized swelling, mass and lump, neck Urinary tract infection with pyuria Urinary incontinence in female Pain of right thumb Elevated LFTs Elevated liver enzymes History of stroke Pre-op examination Colon cancer screening Chronic pain syndrome Dementia 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 Diabetic neuropathy Insomnia Glaucoma Migraine Acquired hypothyroidism Hearing impairment COVID-19 vaccine administered CVA (cerebral vascular accident) Blind left eye Depression Anxiety Osteoarthritis Lumbar spondylosis Pure hypercholesterolemia Allergic rhinitis Hypertension Obesity (BMI 30-39.9) Vitamin D deficiency Dyslipidemia Diabetic 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 type 2 diabetes mellitus 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 Dizziness and giddiness Orthostatic hypotension Surgical History History of carpal tunnel release History of pubovaginal sling Hx of eye surgery Hx of cystoscopy Hx of hysterectomy Hx of cholecystectomy History of esophagogastroduodenoscopy (EGD) Hx of colonoscopy Family History Father Diabetes Mother Heart problem Brother Diabetes Social History Housing: Apartment Are you a primary disabilities caregiver to a significant other at home: No Do you presently have visiting nurse or other home services: Yes Alcohol intake: never Patient Tobacco Use Status: Never used Tobacco e-Cigarette/Vaping Use: Never Used Second Hand Smoke Exposure: No service: No Current occupational status: disabled Gender identity: Female Cognitive needs: Yes Hearing needs: No Vision needs: Yes Female Reproductive History Menstrual Age of Menarche: 10 Assessment & Plan Assessment & Plan (1) Diabetes type 2, uncontrolled: Code(s): E11.65 - Type 2 diabetes mellitus with hyperglycemia Qualifiers: Glycemic state: with hyperglycemia Qualified Code(s): E11.65 - Type 2 diabetes mellitus with hyperglycemia Plan: Patient presents for pump training for? Omnipod Dash with Dexcom G6 Patient's daughter stated patient is being treated for retinopathy in left eye Patient's last A1c 6.9% on 03/25/2023 The following topics were reviewed today: The following topics were reviewed today: -Pump therapy basic concepts: Basal/bolus, insulin to carb ratio, correction factor, insulin on board -Device settings: Bluetooth/mobile connection (if applicable), correct date and time, sound volume -CGM settings(if integrated system): CGM graft views and trend arrows, alerts and alarms, Start new sensor ??? High Alert: 280 mg/dl ??? Low Alert: 80 mg/dl Insulin delivery settings Program insulin to carb ratio, correction factor, target blood glucose, suspend or resume insulin delivery, bolus limit and basal limit settings, use settings from patient's Omnipod dash Instructed patient to only use room temperature insulin, how to load cartridge or fill pod, with insulin. Fill tubing and cannula (if applicable) Inserting infusion set or starting pod Troubleshooting after starting new pod or inserting new insulin set: Occlusion, adhesive tape sensitivity, redness Check BG 2 hours after site change Safety information: Importance of a backup plan, for manual injections, proper prescriptions and emergency supplies ketone strips, and rules for testing for ketones Macye's daughter was able to insert pod to day without difficulty. Patient understands the basic concepts of pump therapy, how to give insulin for meals and snacks, how to troubleshoot for hyper and hypoglycemia. Overall patient's glucose control is good Settings verified by clinical unit educator Basal rate(s) (units/hour) : ?12 AM to 10 AM 1.5 units / hr 10AM to 12 AM? 1.25 units / hr Bolus setting Insulin Carbohydrate Ratio (s) 12 AM to 12 AM 1:9 6 PM to 12 AM 1:10 Correction Factor / Sensitivity Factor 12 AM? to 12 AM 1:40 Active Insulin Time:? 4 hours Target(s): ?12 AM? to 12 PM? 120 mg/dL Correct above 120 mg/dL Patient Instructions: Patient will follow-up with clinical unit educator in 1 week Coding Level of Care Code Est Pt Level 1 (49562) Diagnoses Uncontrolled type 2 diabetes mellitus with hyperglycemia E11.65 Glycemic state: with hyperglycemia
== END 2024-02-23 16:17 | disposition home or self-care (01) ==
PROVIDERS: PCP Internal Medicine; Visit Provider Registered Nurse Diabetes Educator
DX: E11.65 Type 2 diabetes mellitus with hyperglycemia (principal)

== ENCOUNTER → 2024-02-23 14:33 | Outpatient (BNVA) | payer OTHER, SELFPAY | PROVIDERS: PCP Internal Medicine; Visit Provider Registered Nurse Diabetes Educator | DX: Z46.81 Encounter for fitting and adjustment of insulin pump (principal); E11.65 Type 2 diabetes mellitus with hyperglycemia; Z79.4 Long term (current) use of insulin | CPT/HCPCS: 99211 ==

== ENCOUNTER 2024-02-25 13:46 | Outpatient (AMB) | payer OTHER, SELFPAY ==
[2024-02-25 13:48] VITALS: BP 118/64; PULSE 93; O2SAT 98; BMI 32.6
--- NOTE | 2024-02-25 13:48 | MHC.PC.OV ---
Vital Signs 02/25/24 13:48 Height 5 ft Weight 167 lb 0.8 oz BMI 32.6 BP 118/64 Blood Pressure Location Lt brachial Position Sitting Pulse 93 Pulse Source Pulse Oximeter Pulse Oximetry (%) 98 Oxygen Delivery Method Room Air Intake Visit Reasons: Annual Exam Intake Note: Patient is here today for a physical. Head Bookkeeper Required: No Allergies francisco Allergy (Severe, Verified 02/25/24 14:30) Rash Penicillins Allergy (Intermediate, Verified 02/25/24 14:30) RASH/HIVES Medication List - Last Reconciled 02/25/24 by Elijah Hunter MD [DDisposable Underwear Heavy Absorbency Large (2) - Personal As directed] [Disposable Underpad 30 x 30 Heavy Flow As directed] [ADULT DIAPERS/BRIEFS As directed] aspirin 81 mg PO DAILY atogepant (Qulipta) 30 mg PO DAILY betamethasone dipropionate 0.05% 1 appl topical DAILY bisacodyl (Laxative (bisacodyl)) 10 mg (2 x 5 mg) PO BEDTIME blood sugar diagnostic (FreeStyle Lite Strips) 5 times a day blood-glucose meter,continuous (Dexcom G7 Coating Technician) As directed blood-glucose sensor (Dexcom G7 Sensor device) As directed blood-glucose transmitter (Dexcom G6 Transmitter device) As directed cholecalciferol (vitamin D3) 125 mcg PO DAILY clonazepam 1 mg PO BEDTIME compr.stocking,knee,long,large As directed diaper,brief,adult,disposable (Overnight Underwear Large) As directed PULL UPS donepezil 10 mg PO BEDTIME dorzolamide-timolol (PF) 2-0.5 % 1 drp ophthalmic (eye) BID dorzolamide-timolol 22.3-6.8 mg/mL 1 drp ophthalmic (eye) BID dulaglutide (Trulicity) 0.75 mg (0.5 mL) subcut QWEEK fluoxetine 20 mg PO BID fluticasone propionate 50 mcg/actuation 2 sprays intranasal DAILY PRN gabapentin 300 mg PO TID 30 days hydroxyzine HCl 25 mg PO TID PRN insulin lispro (Humalog U-100 Insulin) 0 - 76 units (0 - 0.76 mL) subcut DAILY insulin pump cart,auto,BT-cntr (Omnipod 5 G6 Intro Kit (Gen 5) subcutaneous cartridge with controller) As directed insulin pump cart,automated,BT (Omnipod 5 G6 Pods (Gen 5) subcutaneous cartridge) As directed insulin pump cartridge 2 ea subcut Q3D 30 days NS Lantus Solostar U-100 Insulin (insulin glargine) 33 units (0.33 mL) subcut DAILY NS latanoprostene bunod 0.024% (Vyzulta) 1 drp ophthalmic (eye) BEDTIME levothyroxine 125 mcg PO QAM magnesium oxide 400 mg PO BEDTIME melatonin 6 mg PO BEDTIME PRN methylcellulose (laxative) (Fiber Therapy (methylcellulose)) 1,000 mg (2 x 500 mg) PO DAILY PRN midodrine 10 mg PO TID mirabegron ER (Myrbetriq) 50 mg PO DAILY mirtazapine 30 mg PO QPM miscellaneous medical supply Wipes miscellaneous; 100 wipebox/ 3 boxes mupirocin 2% topical BID ondansetron 4 mg PO Q8H PRN 15 days pantoprazole 40 mg PO BID pen needle, diabetic (Comfort EZ Pen [place]) As directed injects 4 times a day [Personal Cleansing Wipes (2) As directed] plecanatide (Trulance) 3 mg PO DAILY quetiapine 75 mg PO BEDTIME rabeprazole (AcipHex) 20 mg PO BID rosuvastatin 40 mg PO DAILY scopolamine base 1 patch transdermal Q3D PRN simethicone (Anti-Gas Ultra Strength) 180 mg PO QID sucralfate (Carafate) 1 g PO TID 15 days sulfamethoxazole-trimethoprim 800-160 mg (Bactrim DS) 1 tab PO BID [UNDERPADS As directed] Tobacco use date assessed: 02/25/24 Fall risk assessment: No Falls in past year Last assessed Fall Risk: 02/25/24 Dental Screening Dental Screen Date: 02/25/24 (dentures ) Did you have a dental visit in the last 12 months?: No Did you have a dental problem in the last 6 months where you did not have access to dental care?: No HPI Annual Exam HPI Details Patient comes in today for her annual physical examination - patient has dementia and her daughter assists with her visit and provides any pertinent or relevant information today She currently has a droopy left upper eyelid and is starting to affect her vision and states that her eye doctor is trying to see if they can schedule her for corrective surgery for this Patient is reportedly doing well overall, with no recent headaches or dizziness She has not had any exertional chest pains or increased shortness of breath No nausea/ vomiting, no abdominal pain and no change in bowel habits noted She has not complained of any pain or burning sensation on urination but she does have urinary incontinence She has no recent follow-up labs done She had annual mammogram done earlier this year and she had her repeat colonoscopy done back in July 2023 [facility] Medical History Nausea and vomiting Sinusitis History of stroke Colon cancer screening Right ankle swelling Cellulitis of right lower leg Swelling of right lower extremity Left leg pain Left ankle sprain Ankle fracture, left Chronic pain syndrome Dementia 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 Diabetic neuropathy UTI (urinary tract infection) Insomnia Glaucoma Migraine Acquired hypothyroidism Hearing impairment CVA (cerebral vascular accident) Blind left eye Localized swelling, mass and lump, neck Urinary tract infection with pyuria Elevated LFTs Elevated liver enzymes Depression Anxiety Urinary incontinence in female Dementia Osteoarthritis Lumbar spondylosis Pure hypercholesterolemia Type 2 diabetes mellitus with diabetic polyneuropathy Pain of right thumb Allergic rhinitis Hypertension Obesity (BMI 30-39.9) Vitamin D deficiency Dyslipidemia Diabetic polyneuropathy associated with type 2 diabetes mellitus Diabetic 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 type 2 diabetes mellitus assisted (current) use of insulin Right sided abdominal pain Dizziness and giddiness Orthostatic hypotension Charmaine albicans infection Surgical History History of carpal tunnel release History of pubovaginal sling Hx of eye surgery Hx of cystoscopy Hx of hysterectomy Hx of cholecystectomy History of esophagogastroduodenoscopy (EGD) Hx of colonoscopy Family History Father Diabetes Mother Heart problem Brother Diabetes Social History Housing: Apartment Are you a primary hospice care transitions coordinator to a significant other at home: No Do you presently have visiting nurse or other home services: Yes Alcohol intake: never Patient Tobacco Use Status: Never used Tobacco e-Cigarette/Vaping Use: Never Used Second Hand Smoke Exposure: No service: No Current occupational status: disabled Gender identity: Female Cognitive needs: Yes Hearing needs: No Vision needs: Yes Female Reproductive History Menstrual Age of Menarche: 10 Questionnaire PHQ-9 Over the last 2 weeks, how often have you been bothered by any of the following problems? 1. Little interest or pleasure in doing things: several days 2. Feeling down, depressed, or hopeless: more than half the days 3. Trouble falling or staying asleep, or sleeping too much: nearly every day 4. Feeling tired or having little energy: more than half the days 5. Poor appetite or overeating: nearly every day 6. Feeling bad about yourself - or that you are a failure or have let yourself or your family down: not at all 7. Trouble concentrating on things, such as reading the newspaper or watching television: more than half the days 8. Moving or speaking so slowly that other people could have noticed. Or the opposite - being so fidgety or restless that you have been moving around a lot more than usual: nearly every day 9. Thoughts that you would be better off or of hurting yourself in some way: not at all Total score: 16 Depression Screening Interpretation: Positive Depression Screening Follow-up: Existing condition and In treatment Depression Screening Done: Yes 07507 - PHQ-9 Billing: Yes Source: Developed by Drs. Neil Wayne, Lakisha Bell, Latrell Serra and colleagues, with an educational sophie from [employer]. Thrive Questionnaire Date Thrive assessed: 02/25/24 I am a: Patient What is your living situation today?: I have a steady place to live Within the past 12 months, did the food you bought not last and you didn't have the money to get more?: Never true Within the past 12 months, did you worry whether your food would run out before you got money to buy more?: Never true Do you have trouble paying for medicines?: No Do you have trouble getting transportation to medical appointments?: No Do you have trouble paying your heating and electricity bill?: No Do you have trouble taking care of your child, family member or friend?: No Do you have trouble with day-to-day activities such as bathing, preparing meals, shopping, managing finances, etc.?: No Are you currently unemployed and looking for a job?: No Are you interested in more education?: No Please select the resources that you would like help with: None Currently or been in a relationship where the following occur: no concerns reported THRIVE Score: 0 AUDIT C Alcohol Use Questionnaire (AUDIT-C) 1. How often do you have a drink containing alcohol?: Never 3. How often do you have six or more drinks on one occasion?: Never Total Score: 0 Score Reviewed/Action Taken: Yes REJI-7 AMB Questionnaire REJI-7 Date REJI - 7 assessed: 02/25/24 (patient on RX) Feeling nervous, anxious, or on edge: 0 = Not at all Not being able to stop or control worryin = Several days Worrying too much about different things: 0 = Not at all Trouble relaxin = Not at all Being so restless that it is hard to sit still: 0 = Not at all Becoming easily annoyed or irritable: 0 = Not at all Feeling afraid as if something awful might happen: 0 = Not at all Total REJI-7 score (0-4 normal; 5-9 mild; 10-14 moderate; 15-21 severe): 1 Source: Developed by Drs. Neil Wayne, Lakisha Bell, Latrell Serra and colleagues, with an educational sophie from [employer]. Review of Systems Const Details: ROS is obtained primarily through patient's daughter due to patient's dementia as well as limitations due to language barrier Denies chills, Reports fatigue, Denies fever(s) and Denies headache(s) (controlled on current Rx) Eyes Denies blurry vision, Denies change in vision, Denies irritation and Denies itchy eyes ENT Denies dysphagia, Denies dizziness, Denies otalgia, Denies headache(s) (controlled on current Rx), Reports neck pain (chronic), Denies odynophagia and Denies sore throat Card Denies chest pain, Denies palpitations and Reports dyspnea on exertion (mild) Resp Denies chest congestion, Denies cough, Reports dyspnea on exertion (mild) and Denies wheezing GI Denies abdominal pain, Reports constipation (chronic - currently controlled on Rx), Denies dysphagia, Denies heartburn, Denies diarrhea, Denies nausea, Denies odynophagia and Denies vomiting Denies hematuria, Denies difficulty voiding, Reports nocturia, Denies dysuria and Reports urinary incontinence Musc Reports back pain and Reports neck pain (chronic) Skin/Breast Denies rash Neuro Denies behavioral changes, Denies dizziness, Denies headache(s) (controlled on current Rx), Reports memory loss and Denies tremor(s) Psych Denies behavioral changes, Reports memory loss and Denies mood swings Endo Reports fatigue and Denies palpitations Ethan/Lymph Denies easy bruising Aller/Immun Denies itchy eyes and Denies wheezing Physical exam (Primary Care) Vital Signs: Last Vital Signs Pulse 93 02/25/24 13:48 BP 118/64 02/25/24 13:48 Pulse Ox 98 02/25/24 13:48 Oxygen Delivery Method Room Air 02/25/24 13:48 BMI result Body Mass Index 32.6 Tobacco/Smoking Status: Tobacco use Status Tobacco use date assessed 02/25/24 02/25/24 13:50 Patient Tobacco Use Status Never used Tobacco 02/25/24 13:50 e-Cigarette/Vaping Use Never Used 02/25/24 13:50 PHQ-9: PHQ-9 Score PHQ-9: Total score 16 04/16/24 01:27 Depression Screening Interpretation: Positive Depression Screening Follow-up: Existing condition and In treatment Thrive Assessment: Date of Thrive Assessment Date Thrive assessed 02/25/24 04/16/24 01:27 Currently or been in a relationship where the following occur: no concerns reported Const General: no acute distress, alert and awake Orientation/consciousness: oriented to person and oriented to place [facility] Head: Yes normocephalic and Yes atraumatic Ears: external ears normal, TM's normal bilaterally and EAC's normal General nose exam: No nasal discharge present Face and sinus: Yes normal facial exam and Yes sinuses nontender Teeth and gingiva: dentition normal Throat: Yes posterior oropharynx normal and Yes tonsils normal (no TP congestion) Eyes Eyelids: Yes eyelids normal Conjunctivae: conjunctivae normal Pupils: Equal, round and reactive pupils present EOM: EOMs intact bilaterally Neck Neck: Yes no lymphadenopathy and Yes supple Thyroid: Thyroid normal Resp Auscultation: clear to auscultation bilaterally, no rales and no wheezes Cardio Rate: regular rate Rhythm: regular rhythm Heart sounds: no murmurs GI Palpation (GI): Soft to palpation, nontender and No hepatosplenomegaly present Auscultation: normal bowel sounds General: Yes no CVA tenderness Back/Spine/Pelvis Back: no CVA tenderness Cervical Spine: Cervical spine tenderness Thoracic/Lumbar Spine: lumbar spinal tenderness Skin Lesions: no lesions Rashes: no rashes Neuro General: oriented to person, oriented to place, moves all extremities, no focal motor deficits and CN's II-XI intact bilaterally Cranial nerves: Yes Equal, round and reactive pupils present Cognition (Neuro): normal cognition Gait exam (Neuro): Normal gait present Extrem General: Yes no clubbing, cyanosis or edema Results AMB Hemoglobin A1c AMB Hemoglobin A1c 5.3 % Last Edit by PETER Whitman on 02/25/24 14:02 Results Reviewed Results Reviewed: Laboratory Last Values Hgb A1c (Clinic) 5.3 % (4.0-6.0) 02/25/24 13:51 Assessment and Plan Assessment & Plan (1) Annual physical exam: Code(s): Z00.00 - Encounter for general adult medical examination without abnormal findings Plan: Patient had her follow up labs done back in November 2023 and these were reviewed and addressed with her daughter back then; has no other follow up labs done recently She is up-to-date with her colon and breast cancer screenings - had annual mammogram done earlier this year and she had her repeat colonoscopy done back in July 2023 (2) Type 2 diabetes mellitus with diabetic polyneuropathy: Comment: insulin pump-average glucose 166/last A1C 6.2% Code(s): E11.42 - Type 2 diabetes mellitus with diabetic polyneuropathy Qualifiers: Diabetes mellitus penitentiary insulin use: with intermediate card tender use Qualified Code(s): E11.42 - Type 2 diabetes mellitus with diabetic polyneuropathy; Z79.4 - assisted (current) use of insulin Plan: Her in-office HgbA1c done today is at 5.3% (HgbA1c was at 5.5% on her labs done a few months ago) - goal is <7.0% Reinforced diabetic diet Continue Humalog U-100 0 to 76 units SQ daily via her Omnipod (insulin pump) and Trulicity 0.75 mg SQ once a week Follow up with endocrinology (Dr. Velazquez) as scheduled (3) Diabetic 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 type 2 diabetes mellitus: Code(s): E11.319 - Type 2 diabetes mellitus with unspecified diabetic retinopathy without macular edema Qualifiers: Diabetic retinopathy severity: with moderate nonproliferative retinopathy Diabetes mellitus macular edema: without macular edema Laterality: bilateral Qualified Code(s): E11.3393 - Type 2 diabetes mellitus with moderate nonproliferative diabetic retinopathy without macular edema, bilateral Plan: Reinforced strict diabetes control to help slow down disease progression Follow up with ophthalmology as scheduled (4) Pure hypercholesterolemia: Code(s): E78.00 - Pure hypercholesterolemia, unspecified Plan: Reinforced low cholesterol diet Continue Rosuvastatin 40 mg QD Will recheck her labs and fasting lipids in 4 months for follow up (5) Migraine: Code(s): G43.909 - Migraine, unspecified, not intractable, without status migrainosus Qualifiers: Migraine type: unspecified Status migrainosus presence: without status migrainosus Intractability: not intractable Qualified Code(s): G43.909 - Migraine, unspecified, not intractable, without status migrainosus Plan: Continue Emgality 120 mg injection once a month - headaches have been well-controlled on her current Rx Follow up with neurology as scheduled (6) Dementia: Code(s): F03.90 - Unspecified dementia, unspecified severity, without behavioral disturbance, psychotic disturbance, mood disturbance, and anxiety Qualifiers: Dementia type: unspecified type Dementia behavioral disturbance: without behavioral disturbance Qualified Code(s): F03.90 - Unspecified dementia without behavioral disturbance Plan: Continue Donepezil 10 mg QD Follow up with neurology as scheduled (7) GERD (gastroesophageal reflux disease): Code(s): K21.9 - Gastro-esophageal reflux disease without esophagitis Qualifiers: Esophagitis presence: without esophagitis Qualified Code(s): K21.9 - Gastro-esophageal reflux disease without esophagitis Plan: Dietary restrictions reinforced Continue Pantoprazole 40 mg BID and Simethicone 100 mg QID PRN (8) Chronic idiopathic constipation: Code(s): K59.04 - Chronic idiopathic constipation Plan: Encouraged again increased oral fluids and dietary fiber Continue Trulance 3 mg QD, Fiber Therapy 1000 mg QD, Colace 100 mg QD PRN and Bisacodyl 10 mg Q HS PRN Follow up with GI as scheduled (9) Elevated LFTs: Code(s): R79.89 - Other specified abnormal findings of blood chemistry Plan: Her LFTs were still slightly elevated and have increased slightly from previous on her labs done back in November 2023 - is most likely related to her weight Will continue to monitor her LFTs regularly (10) Acquired hypothyroidism: Code(s): E03.9 - Hypothyroidism, unspecified Plan: Her TFTs were normal on her labs last done in November 2023 Continue Levothyroxine 125 mcg QD (11) Allergic rhinitis: Code(s): J30.9 - Allergic rhinitis, unspecified Qualifiers: Allergic rhinitis trigger: unspecified Allergic rhinitis seasonality: unspecified Qualified Code(s): J30.9 - Allergic rhinitis, unspecified Plan: Continue Fluticasone 50 mcg nasal spray QD PRN (12) Diffuse idiopathic skeletal hyperostosis of cervical spine: Code(s): M48.12 - Ankylosing hyperostosis [[place]], cervical region Plan: Cervical spine CT done back in 2018 revealed (+) diffuse idiopathic skeletal hyperostosis She was on Tramadol 50 mg Q HS PRN although she has not taken this in a while now as it was not helping Is currently reportedly doing okay on Gabapentin 300 mg TID Follow up with pain management as scheduled (13) Lumbar spondylosis: Code(s): M47.816 - Spondylosis without myelopathy or radiculopathy, lumbar region Plan: Reinforced activity and weight-lifting restrictions Gabapentin is also reportedlyhelping with her low back pain (14) Osteoarthritis: Code(s): M19.90 - Unspecified osteoarthritis, unspecified site Qualifiers: Osteoarthritis location: multiple joints Osteoarthritis type: primary Qualified Code(s): M89.49 - Other hypertrophic osteoarthropathy, multiple sites Plan: Involves multiple joints Patient has been using OTC pain patches PRN and OTC Tylenol PRN although she has been cautioned against taking too much Tylenol due to her elevated LFTs in the past Will consider referral to orthopedics if her joint symptoms get worse (15) Overactive bladder: Code(s): N32.81 - Overactive bladder Plan: Continue Oxybutynin ER 10 mg QD; has failed multiple other Rx and urology is reportedly now considering injecting Botox into her urinary bladder muscles to help control her symptoms better if Rx are no longer helping Continue Mybetriq ER 50 mg QD Follow up with urology as scheduled (16) Vitamin D deficiency: Code(s): E55.9 - Vitamin D deficiency, unspecified Plan: Corrected - continue Vitamin D3 125 mcg QD (17) Glaucoma: Code(s): H40.9 - Unspecified glaucoma Qualifiers: Glaucoma type: unspecified Laterality: bilateral Qualified Code(s): H40.9 - Unspecified glaucoma Plan: S/P left eye surgery a few months ago Continue Prednisolone acetate 1% 1 drop into the left eye QID Continue Dorzolamide-Timolol 22.3-6.8 mg/ml 1 drop to both eyes BID She is also on Xiidra 5% 1 drop to eye BID for dry eyes Follow up [facility] as [facility] (18) Insomnia: Code(s): G47.00 - Insomnia, unspecified Qualifiers: Insomnia type: unspecified Qualified Code(s): G47.00 - Insomnia, unspecified Plan: Sleep hygiene reinforced Continue Melatonin 6 mg Q HS PRN Mirtazapine and Quetiapine also helps with her sleep at night (19) Anxiety: Code(s): F41.9 - Anxiety disorder, unspecified Plan: Continue Hydroxyzine 25 mg TID PRN and Clonazepam 1 mg Q HS (20) Depression: Code(s): F32.9 - Major depressive disorder, single episode, unspecified Qualifiers: Depression Type: major depressive disorder Major depression recurrence: recurrent Active/Remission status: currently active Major depression episode severity: unspecified Qualified Code(s): F33.9 - Major depressive disorder, recurrent, unspecified Plan: Continue Fluoxetine 20 mg BID, Mirtazapine 30 mg Q HS and Quetiapine 75 mg Q HS Follow up with psychiatry as scheduled (21) Obesity (BMI 30-39.9): Code(s): E66.9 - Obesity, unspecified Plan: Reinforced diet; exercise and weight loss are not realistic in her case given her dementia and multiple medical and physical comorbidities Plan Follow up in 4 months Orders: Orders AMB Hemoglobin A1c 24 E11.65 - Type 2 diabetes mellitus with hyperglycemia Lipid Panel 4 Months E78.00 - Pure hypercholesterolemia, unspecified Comprehensive [place]. Panel Fast 4 Months E78.00 - Pure hypercholesterolemia, unspecified Complete Blood Count Auto Diff 4 Months D64.9 - Anemia, unspecified Microalbumin, Random (w Creat) 4 Months E11.9 - Type 2 diabetes mellitus without 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s TSH reflex Free T4 4 Months E78.00 - Pure hypercholesterolemia, unspecified UA CC w/rflx Micro + Cult 4 Months R30.0 - Dysuria Vitamin D 25-OH Total 4 Months E55.9 - Vitamin D deficiency, unspecified Vitamin B12 and Folate 4 Months E53.8 - Deficiency of other specified B group vitamins Hemoglobin A1c 4 Months E11.9 - Type 2 diabetes mellitus without 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s Coding Level of Care Code Est Pt Prev Care >65y(53662) Diagnoses Annual physical exam Z00.00 Type 2 diabetes mellitus with diabetic polyneuropathy, with long-term current use of insulin E11.42; Z79.4 Diabetes mellitus penitentiary insulin use: with penitentiary use 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 edema associated with type 2 diabetes mellitus E11.3393 Diabetic retinopathy severity: with moderate nonproliferative retinopathy Diabetes mellitus macular edema: without macular edema Laterality: bilateral Pure hypercholesterolemia E78.00 Migraine without status migrainosus, not intractable, unspecified migraine type G43.909 Migraine type: unspecified Status migrainosus presence: without status migrainosus Intractability: not intractable Dementia without behavioral disturbance, unspecified dementia type F03.90 Dementia type: unspecified type Dementia behavioral disturbance: without behavioral disturbance Gastroesophageal reflux disease without esophagitis K21.9 Esophagitis presence: without esophagitis Chronic idiopathic constipation K59.04 Elevated LFTs R79.89 Acquired hypothyroidism E03.9 Allergic rhinitis, unspecified seasonality, unspecified trigger J30.9 Allergic rhinitis trigger: unspecified Allergic rhinitis seasonality: unspecified Diffuse idiopathic skeletal hyperostosis of cervical spine M48.12 Lumbar spondylosis M47.816 Primary osteoarthritis involving multiple joints M89.49 Osteoarthritis location: multiple joints Osteoarthritis type: primary Overactive bladder N32.81 Vitamin D deficiency E55.9 Glaucoma of both eyes, unspecified glaucoma type H40.9 Glaucoma type: unspecified Laterality: bilateral Insomnia, unspecified type G47.00 Insomnia type: unspecified Anxiety F41.9 Episode of recurrent major depressive disorder, unspecified depression episode severity F33.9 Depression Type: major depressive disorder Major depression recurrence: recurrent Active/Remission status: currently active Major depression episode severity: unspecified Obesity (BMI 30-39.9) E66.9
== END 2024-02-25 14:50 | disposition home or self-care (01) ==
PROVIDERS: PCP Internal Medicine; Visit Provider Internal Medicine
DX: E11.65 Type 2 diabetes mellitus with hyperglycemia (principal)
CPT/HCPCS: 83036; 99397

== ENCOUNTER 2024-03-03 13:32 | Outpatient (AMB) | payer OTHER, SELFPAY ==
--- NOTE | 2024-03-03 14:03 | A.OFFVIS_ITS ---
Intake Intake Visit Reasons: 60 min Glaze Maker Required: Yes Glaze Maker Language: Riveter Hand Name: Pt's Daughter Mary Accompanied by: Daughter Allergies francisco Allergy (Severe, Verified 02/25/24 14:30) Rash Penicillins Allergy (Intermediate, Verified 02/25/24 14:30) RASH/HIVES HPI Comprehensive Diabetes Asmnt Most Recent Diabetes Results: Hemoglobin A1c 6.2 % 06/08/20 Microalb/Creat Ratio 12.2 ug/mg cr (<30) 11/20/23 Cholesterol 103 mg/dL (<200) 11/20/23 HDL Cholesterol 44 mg/dL (>40) 11/20/23 Triglycerides 100 mg/dL (<150) 11/20/23 Creatinine 0.79 mg/dL (0.5-1.4) 11/20/23 Blood Urea Nitrogen 22 mg/dL (9-16) H 11/20/23 Sodium 142 mmol/L (135-145) 11/20/23 Potassium 4.3 mmol/L (3.3-5.1) 11/20/23 Chloride 106 mmol/L (96-108) 11/20/23 Carbon Dioxide 30 mmol/L (22-29) H 11/20/23 Calcium 9.4 mg/dL (8.4-10.2) 11/20/23 AST 46 U/L (5-31) H 11/20/23 ALT 38 U/L (0-31) H 11/20/23 Total Protein 7.2 g/dL (6.5-8.0) 11/20/23 Albumin 3.9 g/dL (3.5-5.0) 11/20/23 [facility] Medical History Dizziness Nausea and vomiting Sinusitis Charmaine albicans infection Right sided abdominal pain Diabetic polyneuropathy associated with type 2 diabetes mellitus Dementia Annual physical exam Ankle fracture, left Left ankle sprain Type 2 diabetes mellitus with diabetic polyneuropathy Left leg pain Swelling of right lower extremity Cellulitis of right lower leg Right ankle swelling Annual physical exam UTI (urinary tract infection) Localized swelling, mass and lump, neck Urinary tract infection with pyuria Urinary incontinence in female Pain of right thumb Elevated LFTs Elevated liver enzymes History of stroke Pre-op examination Colon cancer screening Chronic pain syndrome Dementia 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 Diabetic neuropathy Insomnia Glaucoma Migraine Acquired hypothyroidism Hearing impairment COVID-19 vaccine administered CVA (cerebral vascular accident) Blind left eye Depression Anxiety Osteoarthritis Lumbar spondylosis Pure hypercholesterolemia Allergic rhinitis Hypertension Obesity (BMI 30-39.9) Vitamin D deficiency Dyslipidemia Diabetic 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 type 2 diabetes mellitus assisted (current) use of insulin Dizziness and giddiness Orthostatic hypotension Surgical History History of carpal tunnel release History of pubovaginal sling Hx of eye surgery Hx of cystoscopy Hx of hysterectomy Hx of cholecystectomy History of esophagogastroduodenoscopy (EGD) Hx of colonoscopy Family History Father Diabetes Mother Heart problem Brother Diabetes Social History Housing: Apartment Are you a primary care tech to a significant other at home: No Do you presently have visiting nurse or other home services: Yes Alcohol intake: never Patient Tobacco Use Status: Never used Tobacco e-Cigarette/Vaping Use: Never Used Second Hand Smoke Exposure: No service: No Current occupational status: disabled Gender identity: Female Cognitive needs: Yes Hearing needs: No Vision needs: Yes Female Reproductive History Menstrual Age of Menarche: 10 Assessment & Plan Assessment & Plan (1) Diabetes type 2, uncontrolled: Code(s): E11.65 - Type 2 diabetes mellitus with hyperglycemia Qualifiers: Glycemic state: with hyperglycemia Qualified Code(s): E11.65 - Type 2 diabetes mellitus with hyperglycemia Plan: Patient presents for pump training for? Omnipod 5 with Dexcom G6 Patient's daughter stated patient is being treated for retinopathy in left eye Patient's last A1c 5.3% on 02/25/24 The following topics were reviewed today: -Pump therapy basic concepts: Basal/bolus, insulin to carb ratio, correction factor, insulin on board -Device settings: Bluetooth/mobile connection (if applicable), correct date and time, sound volume -CGM settings(if integrated system): CGM graft views and trend arrows, alerts and alarms, Start new sensor ??? High Alert: 280 mg/dl ??? Low Alert: 80 mg/dl CGM Values Patient above target 15% Patient at target 85% Patient below target 0% Patient's average glucose for the past 2 weeks 146 mg/dL Patient in auto mode 100% Patient's Dexcom transmitter became disconnected from Omnipod and smart phone. Read downloaded Dexcom G6 baltazar, inserted new sensor and new transmitter. Enter new transmitter number into Omnipod 5 controller Patient left visit sensor in warmup Troubleshooting after starting new pod or inserting new insulin set: Occlusion, adhesive tape sensitivity, redness Check BG 2 hours after site change Safety information: Importance of a backup plan, for manual injections, proper prescriptions and emergency supplies ketone strips, and rules for testing for ketones Macey's daughter was able to insert pod to day without difficulty. Patient understands the basic concepts of pump therapy, how to give insulin for meals and snacks, how to troubleshoot for hyper and hypoglycemia. Overall patient's glucose control is good Settings verified by railroad conductor Basal rate(s) (units/hour) : ?12 AM to 10 AM 1.5 units / hr 10AM to 12 AM? 1.25 units / hr Bolus setting Insulin Carbohydrate Ratio (s) 12 AM to 12 AM 1:9 6 PM to 12 AM 1:10 Correction Factor / Sensitivity Factor 12 AM? to 12 AM 1:40 Active Insulin Time:? 4 hours Target(s): ?12 AM? to 12 PM? 120 mg/dL Correct above 120 mg/dL Patient Instructions: Patient will follow-up with railroad conductor in 3 months Patient's daughter will contact railroad conductor if there are further problems or questions Coding Level of Care Code Est Pt Level 1 (51748) Diagnoses Uncontrolled type 2 diabetes mellitus with hyperglycemia E11.65 Glycemic state: with hyperglycemia
== END 2024-03-03 14:06 | disposition home or self-care (01) ==
LOC: HO.ENCR 13:37
PROVIDERS: PCP Internal Medicine; Visit Provider Registered Nurse Diabetes Educator
DX: E11.65 Type 2 diabetes mellitus with hyperglycemia (principal)

== ENCOUNTER → 2024-03-03 13:37 | Outpatient (BNVA) | payer OTHER, SELFPAY | PROVIDERS: PCP Internal Medicine; Visit Provider Registered Nurse Diabetes Educator | DX: E11.65 Type 2 diabetes mellitus with hyperglycemia (principal); E11.42 Type 2 diabetes mellitus with diabetic polyneuropathy; E11.319 Type 2 diabetes mellitus with unspecified diabetic retinopathy without macular edema; Z79.4 Long term (current) use of insulin; Z96.41 Presence of insulin pump (external) (internal); Z46.81 Encounter for fitting and adjustment of insulin pump | CPT/HCPCS: 99211 ==

== ENCOUNTER 2024-03-09 08:00 | Day surgery (SDC) | payer OTHER, SELFPAY ==
[2024-03-04 13:43] VITALS: BMI 31.6
--- NOTE | 2024-03-04 13:47 | P.CONAN_ITS ---
Documented by User: Jennifer Ervin NP 03/04/24 13:49 HPI - Anesthesia Eval Consult details Narrative: 68yo F for Cystoscopy Botox Injection 200 units s/p same 11/2023 with [facility] Cardiology office visit 11/20/23. Dizziness likely non-cardiac, possibly neurological. Stable from cardiac standpoint. RX for PRN scop patch for dizziness Anesthesia Pre-Procedure Meds Is the patient on any of the following meds?: GLP1/DPP4 PMFSH Active Problems Active Problems: All Active Problems Spastic neurogenic bladder (Acute) Abdominal pain (Acute) Tubular adenoma of colon (Acute) Gastroparesis (Acute) Urge incontinence of urine (Acute) Uninhibited neurogenic bladder (Acute) Diabetes mellitus (Acute) Goiter (Acute) Delayed gastric emptying (Acute) Diffuse idiopathic skeletal hyperostosis of cervical spine (Acute) Aortic valve calcification (Acute) Chronic pain of left ankle (Acute) Overactive bladder (Acute) Diabetes type 2, uncontrolled (Acute) Simple ovarian cyst (Acute) QT prolongation (Acute) Hemorrhoids (Acute) Rectocele (Acute) GERD (gastroesophageal reflux disease) (Acute) Chronic idiopathic constipation (Acute) Chronic pain syndrome (Acute) Dementia 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 (Acute) Diabetic neuropathy (Acute) Insomnia (Acute) Glaucoma (Acute) Migraine (Acute) Acquired hypothyroidism (Acute) Hearing impairment (Acute) Depression (Acute) Anxiety (Acute) Osteoarthritis (Acute) Lumbar spondylosis (Acute) Pure hypercholesterolemia (Acute) Allergic rhinitis (Acute) Hypertension (Acute) Obesity (BMI 30-39.9) (Acute) Vitamin D deficiency (Acute) Dyslipidemia (Acute) Diabetic 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 type 2 diabetes mellitus (Acute) buttermaker (current) use of insulin (Acute) Dizziness and giddiness (Acute) Orthostatic hypotension (Acute) Past Medical History Medical History (Updated 03/04/24 @ 13:46 by Katie Arrieta RN) Nausea and vomiting Sinusitis History of stroke Colon cancer screening Right ankle swelling Cellulitis of right lower leg Swelling of right lower extremity Left leg pain Left ankle sprain Ankle fracture, left Chronic pain syndrome Dementia 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 Diabetic neuropathy UTI (urinary tract infection) Insomnia Glaucoma Migraine Acquired hypothyroidism Hearing impairment CVA (cerebral vascular accident) Blind left eye Localized swelling, mass and lump, neck Urinary tract infection with pyuria Elevated LFTs Elevated liver enzymes Depression Anxiety Urinary incontinence in female Dementia Osteoarthritis Lumbar spondylosis Pure hypercholesterolemia Type 2 diabetes mellitus with diabetic polyneuropathy Pain of right thumb Allergic rhinitis Hypertension Obesity (BMI 30-39.9) Vitamin D deficiency Dyslipidemia Diabetic polyneuropathy associated with type 2 diabetes mellitus Diabetic 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 type 2 diabetes mellitus long-term (current) use of insulin Right sided abdominal pain Dizziness and giddiness Orthostatic hypotension Charmaine albicans infection Family History Family History Father Diabetes Mother Heart problem Brother Diabetes Family history of problems with anesthesia: No Surgical History Surgical History (Updated 03/04/24 @ 13:32 by Katie Arrieta RN) History of carpal tunnel release History of pubovaginal sling Hx of eye surgery Hx of cystoscopy Hx of hysterectomy Hx of cholecystectomy History of esophagogastroduodenoscopy (EGD) Hx of colonoscopy History of Problems with Anesthesia: No Social History Social History Housing: Apartment Are you a primary career services coordinator to a significant other at home: No Do you presently have visiting nurse or other home services: Yes Alcohol intake: never Patient Tobacco Use Status: Never used Tobacco e-Cigarette/Vaping Use: Never Used Second Hand Smoke Exposure: No Use of substances other than those prescribed or required for medical reasons: No Are you DNR?: No Advance Directives: No Advance Directives Information Provided: Yes service: No Current occupational status: disabled Gender identity: Female Cognitive needs: Yes Hearing needs: No Vision needs: Yes Meds Allergies Allergy/AdvReac Type Severity Reaction Status Date / Time francisco Allergy Severe Rash Verified 02/25/24 14:30 Penicillins Allergy Intermediate RASH/HIVES Verified 02/25/24 14:30 Home Medications ?Medication ?Instructions ?Recorded ?Confirmed ?Last Taken ?Type dorzolamide 22.3 mg-timolol 6.8 1 drp ophthalmic (eye) BID 09/27/20 03/04/24 Unknown History mg/mL eye drops quetiapine 25 mg tablet 75 mg PO BEDTIME 09/27/20 03/04/24 Unknown History melatonin 3 mg tablet 6 mg PO BEDTIME PRN Insomnia 05/08/21 03/04/24 Unknown History mirtazapine 30 mg tablet 30 mg PO QPM 01/07/22 03/04/24 Unknown History clonazepam 0.5 mg tablet 1 mg PO BEDTIME 08/29/22 03/04/24 Unknown History blood-glucose transmitter (Dexcom 10/24/22 02/25/24 Unknown History G6 Transmitter device) dorzolamide 2 %-timolol 0.5 % (PF) 1 drp ophthalmic (eye) BID 08/18/23 02/25/24 Unknown History eye drops atogepant 30 mg tablet (Qulipta) 30 mg PO DAILY migraine 02/04/24 03/04/24 Unknown History latanoprostene bunod 0.024 % eye 1 drp ophthalmic (eye) BEDTIME 02/04/24 03/04/24 Unknown History drops (Vyzulta) mupirocin 2 % topical ointment 1 appl topical BID 02/04/24 03/04/24 Unknown History Exam Height,Weight and Vital Signs: Height 5 ft 1 in Weight 75.75 kg Pertinent Lab Results Pertinent Lab Results: Laboratory Tests 11/20/23 11:11 WBC 3.6 L Hgb 13.0 Hct 40.2 Plt Count 121 L Sodium 142 Potassium 4.3 Chloride 106 Carbon Dioxide 30 H BUN 22 H Creatinine 0.79 Narrative Narrative: EKG 07/2023 normal sinus rhythm with horizontal access, long QT interval. No significant change noted from previous EKGs. ECHO 2020 Conclusions: - The left ventricular systolic function is normal. The calculated ejection fraction is 66% by biplane method. - There is mild calcification of the aortic valve. - No obvious valvular pathology seen on this study. Assessment and Plan Assessment Anesthesia Assessment: Chart Reviewed Final Anesthetic Review Family History of Problems with Anesthesia: No History of Problems with Anesthesia: No Documented by User: Daniel Zepeda MD 03/09/24 11:20 PMFSH Active Problems Active Problems: mAll Active Problems Spastic neurogenic bladder (Acute) Abdominal pain (Acute) Tubular adenoma of colon (Acute) Gastroparesis (Acute) Urge incontinence of urine (Acute) Uninhibited neurogenic bladder (Acute) Diabetes mellitus (Acute) Goiter (Acute) Delayed gastric emptying (Acute) Diffuse idiopathic skeletal hyperostosis of cervical spine (Acute) Aortic valve calcification (Acute) Chronic pain of left ankle (Acute) Overactive bladder (Acute) Diabetes type 2, uncontrolled (Acute) Simple ovarian cyst (Acute) QT prolongation (Acute) Hemorrhoids (Acute) Rectocele (Acute) GERD (gastroesophageal reflux disease) (Acute) Chronic idiopathic constipation (Acute) Chronic pain syndrome (Acute) Dementia 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 (Acute) Diabetic neuropathy (Acute) Insomnia (Acute) Glaucoma (Acute) Migraine (Acute) Acquired hypothyroidism (Acute) Hearing impairment (Acute) Depression (Acute) Anxiety (Acute) Osteoarthritis (Acute) Lumbar spondylosis (Acute) Pure hypercholesterolemia (Acute) Allergic rhinitis (Acute) Hypertension (Acute) Obesity (BMI 30-39.9) (Acute) Vitamin D deficiency (Acute) Dyslipidemia (Acute) Diabetic 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 type 2 diabetes mellitus (Acute) long-term (current) use of insulin (Acute) Dizziness and giddiness (Acute) Orthostatic hypotension (Acute) Past Medical History Medical History (Updated 03/04/24 @ 13:46 by Katie Arrieta RN) Nausea and vomiting Sinusitis History of stroke Colon cancer screening Right ankle swelling Cellulitis of right lower leg Swelling of right lower extremity Left leg pain Left ankle sprain Ankle fracture, left Chronic pain syndrome Dementia 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 Diabetic neuropathy UTI (urinary tract infection) Insomnia Glaucoma Migraine Acquired hypothyroidism Hearing impairment CVA (cerebral vascular accident) Blind left eye Localized swelling, mass and lump, neck Urinary tract infection with pyuria Elevated LFTs Elevated liver enzymes Depression Anxiety Urinary incontinence in female Dementia Osteoarthritis Lumbar spondylosis Pure hypercholesterolemia Type 2 diabetes mellitus with diabetic polyneuropathy Pain of right thumb Allergic rhinitis Hypertension Obesity (BMI 30-39.9) Vitamin D deficiency Dyslipidemia Diabetic polyneuropathy associated with type 2 diabetes mellitus Diabetic 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 type 2 diabetes mellitus buttermaker (current) use of insulin Right sided abdominal pain Dizziness and giddiness Orthostatic hypotension Charmaine albicans infection Family History Family History Father Diabetes Mother Heart problem Brother Diabetes Surgical History Surgical History (Updated 03/04/24 @ 13:32 by Katie Arrieta RN) History of carpal tunnel release History of pubovaginal sling Hx of eye surgery Hx of cystoscopy Hx of hysterectomy Hx of cholecystectomy History of esophagogastroduodenoscopy (EGD) Hx of colonoscopy Social History Social History Housing: Apartment Are you a primary career services coordinator to a significant other at home: No Do you presently have visiting nurse or other home services: Yes Alcohol intake: never Patient Tobacco Use Status: Never used Tobacco e-Cigarette/Vaping Use: Never Used Second Hand Smoke Exposure: No Use of substances other than those prescribed or required for medical reasons: No Are you DNR?: No Advance Directives: No Advance Directives Information Provided: Yes service: No Current occupational status: disabled Gender identity: Female Cognitive needs: Yes Hearing needs: No Vision needs: Yes Meds Allergies Allergy/AdvReac Type Severity Reaction Status Date / Time francisco Allergy Severe Rash Verified 02/25/24 14:30 Penicillins Allergy Intermediate RASH/HIVES Verified 02/25/24 14:30 Home Medications ?Medication ?Instructions ?Recorded ?Confirmed ?Last Taken ?Type dorzolamide 22.3 mg-timolol 6.8 1 drp ophthalmic (eye) BID 09/27/20 03/04/24 Unknown History mg/mL eye drops quetiapine 25 mg tablet 75 mg PO BEDTIME 09/27/20 03/04/24 Unknown History melatonin 3 mg tablet 6 mg PO BEDTIME PRN Insomnia 05/08/21 03/04/24 Unknown History mirtazapine 30 mg tablet 30 mg PO QPM 01/07/22 03/04/24 Unknown History clonazepam 0.5 mg tablet 1 mg PO BEDTIME 08/29/22 03/04/24 Unknown History blood-glucose transmitter (Dexcom 10/24/22 02/25/24 Unknown History G6 Transmitter device) dorzolamide 2 %-timolol 0.5 % (PF) 1 drp ophthalmic (eye) BID 08/18/23 02/25/24 Unknown History eye drops atogepant 30 mg tablet (Qulipta) 30 mg PO DAILY migraine 02/04/24 03/04/24 Unknown History latanoprostene bunod 0.024 % eye 1 drp ophthalmic (eye) BEDTIME 02/04/24 03/04/24 Unknown History drops (Vyzulta) mupirocin 2 % topical ointment 1 appl topical BID 02/04/24 03/04/24 Unknown History Exam Airway Mallampati Class: III TM Dist: >3cm Denture: Upper and Lower Assessment and Plan Assessment Anesthesia Assessment: Anesthesia Plan Discussed Final Anesthetic Review NPO: Yes ASA Class: III Final Preanesthetic Review: No Changes in Pt Med Stat, Meds/Allgs Chart Reviewed, Consent Obtained/Reviewed and Anes Risks/Benef Reviewed Patient Risk: Intermediate Procedure Risk: Low Anesthetic Plan Anesthetic Plan: MAC: Disposition: Standard PACU
[2024-03-09 09:40] VITALS: BP 125/66; PULSE 80; RESP 18; TEMP 36.1; O2SAT 95; BMI 31.6
[2024-03-09] MEDS: Lactated Ringers 1,000 ML 100 ML IVCONT (09:45)
--- NOTE | 2024-03-09 11:28 | MHC.SHP ---
Pre-Procedural Eval Section A - 24 Hr Update-Section A only Date of Service: 03/09/24 The patient is an INPATIENT: No The patient has been examined within 24 hours of the surgical procedure. The History & Physical has been completed within 30 days and I have reviewed it.: Yes Section B - Complete if H&P > 30 days Chief Complaint: Other neuromuscular dysfunction of bladder Allergies: Allergies Allergy/AdvReac Type Severity Reaction Status Date / Time francisco Allergy Severe Rash Verified 02/25/24 14:30 Penicillins Allergy Intermediate RASH/HIVES Verified 02/25/24 14:30 Plan Diagnosis/Plan: Unchanged I have reviewed the history and physical and performed a pertinent physical examination on my patient. No changes have occurred unless specified. Neurogenic bladder. Cystoscopy bladder Botox injection. Time Spent With Patient Time: Total time managing care of this patient today ____ minutes.
--- NOTE | 2024-03-09 12:05 | W.PM.OPN ---
Operative Note Operative Note Date of Service: 03/09/24 Narrative: PreOperative Diagnosis: Overactive bladder, spastic neurogenic bladder Post Operative Diagnosis: Overactive bladder, spastic neurogenic bladder Procedure: Cystoscopy with injection 200 units Botox intra detrusor muscle Surgeon: Dr Charlie Jones Anesthesia: General Procedure: After informed consent was verified the patient was brought to the operating room and placed in a supine position. Anesthesia was administered per protocol. Time out was done per protocol. Antibiotics confirmed. Cystoscopy performed with 22 [place] cystoscope. Bladder was emptied of urine. Urine sent for culture. Bladder was refilled. The bladder was visualized, the trigone was dependent due to cystocele. Using 200 units of Botox mixed in 10 cc of normal saline; transurethral injections were placed into the posterior wall of the bladder. 0.5cc placed at each injection site. Injections were placed in a grid 5 across and 4 longitudinally. Injections were placed from the inferior to superior position. The bladder was drained, the cystoscope was removed. 2% lidocaine was passed transurethrally. The patient tolerated the procedure and was brought out of anesthesia and taken to the recovery room in stable condition. Drains: None
[2024-03-09 12:12] VITALS: BP 136/77; PULSE 73; RESP 14; TEMP 36.1; O2SAT 97
[2024-03-09 12:27] VITALS: BP 151/77; PULSE 81; RESP 16; O2SAT 95
[2024-03-09 12:42] VITALS: BP 129/84; PULSE 73; RESP 16; TEMP 36.1; O2SAT 95
[2024-03-09] MEDS: Phenazopyridine HCL 200 MG TABLET PO (12:48)
== END 2024-03-09 13:59 | disposition home or self-care (01) ==
PROVIDERS: PCP Internal Medicine; Visit Provider Urology
PROC: 3E0K8GC Introduction of Other Therapeutic Substance into Genitourinary Tract, Via Natural or Artificial Opening Endoscopic (ICD-10-PCS; CPT 52287; principal; 2024-03-09 11:10)
DX: N31.8 Other neuromuscular dysfunction of bladder (principal); N32.81 Overactive bladder; N39.41 Urge incontinence; E11.9 Type 2 diabetes mellitus without 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s; Z79.4 Long term (current) use of insulin; Z88.0 Allergy status to penicillin
CPT/HCPCS: 52287; 87086; 87088; 87186; J0585; J1956; J2704

== ENCOUNTER → 2024-03-09 08:00 | Outpatient (BNV) | payer OTHER, SELFPAY | PROVIDERS: PCP Internal Medicine; Visit Provider Urology | DX: N31.8 Other neuromuscular dysfunction of bladder (principal) | CPT/HCPCS: 52287 ==

== ENCOUNTER → 2024-03-24 10:37 | Outpatient (BNVA) | payer OTHER, SELFPAY | PROVIDERS: PCP Internal Medicine; Visit Provider Urology | DX: N31.8 Other neuromuscular dysfunction of bladder (principal); N31.9 Neuromuscular dysfunction of bladder, unspecified; N32.81 Overactive bladder; N39.41 Urge incontinence | CPT/HCPCS: 51798 ==

== ENCOUNTER 2024-05-07 08:03 | Outpatient (AMB) | payer OTHER, SELFPAY ==
[2024-05-07 08:04] VITALS: BP 116/58; PULSE 87; BMI 31.3
--- NOTE | 2024-05-07 08:04 | MHC.OFFVIS ---
Vital Signs 05/07/24 08:04 Height 5 ft 1 in Weight 165 lb 9.074 oz BMI 31.3 BP 116/58 L Blood Pressure Location Lt brachial Position Sitting Pulse 87 Pulse Source Pulse Oximeter Intake Visit Reasons: Type 2 DM/CONFIRMED Intake Note: Patient presents today to follow up on D2MT. Patient receives DME supplies through: [place] Patient receives insulin supplies through: Pharmacy Last Diabetic Eye exam: within 1 month Last Podiatry Visit: daughter reports a nurse comes to her house to check her feet Random Glucose: 201 mg/dl HgA1c: 5.3% 02/25/24 Civil Cadd Technician Required: No Civil Cadd Technician Services: Civil Cadd Technician Offered & Declined Civil Cadd Technician Name: Refusal sign Accompanied by: Daughter Allergies francisco Allergy (Severe, Verified 05/07/24 08:17) Rash Penicillins Allergy (Intermediate, Verified 05/07/24 08:17) RASH/HIVES HPI Comments Details: Patient is 69 year old female with DM type 2 diagnosed 2002 who presents for management of diabetes. Past medical history:DM2 GERD, depression, hypertension, hyperlipidemia, hypothyroidism. Micro and macrovascular 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s: + neuropathy, +background retinopathy, + nephropathy + microalbumin, no macrovascular disease. Symptoms reported: occasional numbness, tingling, cramping in lower extremities Hypoglycemia: none recent carries sugar source Hyperglycemia: denies urinary frequency, nocturia, polydypsia Humalog via ominipod pump Total daily insulin 10.6 units 7.6 units basal 3 units bolus Dexcom average glucose: [128] Glucose Managment indicator 6.4 % TIme in range: 0 % very high (above 250) 8 % high ?(181-250) Ninety-two % in range ?(70-180] 0 % low (69-55) 0 % ?very low (below 54) 31 Standard Deviation [100 ] % TIme CGM Active Details [download looks excellent with no hypoglycemia ] Also on Trulicity 1.5 mg q.week Exercise: limited due to balance issues Nutrition - diabetes education: currently sees [facility] 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 1.25 units / hr Bolus setting Insulin Carbohydrate Ratio (s) 12 AM 1:9 6 PM 1: 10 Correction Factor / Sensitivity Factor 12 AM?40 Active Insulin Time:? 4 hours Target(s): ?12 AM? to 12 PM? 120 mg/dL Correct above 120 mg/dL PFSH Medical History Type 2 diabetes mellitus 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, with residential current use of insulin pump Type 2 diabetes mellitus 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 Nausea and vomiting Sinusitis History of stroke Colon cancer screening Right ankle swelling Cellulitis of right lower leg Swelling of right lower extremity Left leg pain Left ankle sprain Ankle fracture, left Chronic pain syndrome Dementia 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 Diabetic neuropathy UTI (urinary tract infection) Insomnia Glaucoma Migraine Acquired hypothyroidism Hearing impairment CVA (cerebral vascular accident) Blind left eye Localized swelling, mass and lump, neck Urinary tract infection with pyuria Elevated LFTs Elevated liver enzymes Depression Anxiety Urinary incontinence in female Dementia Osteoarthritis Lumbar spondylosis Pure hypercholesterolemia Type 2 diabetes mellitus with diabetic polyneuropathy Pain of right thumb Allergic rhinitis Hypertension Obesity (BMI 30-39.9) Vitamin D deficiency Dyslipidemia Diabetic polyneuropathy associated with type 2 diabetes mellitus Diabetic 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 type 2 diabetes mellitus 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 Right sided abdominal pain Dizziness and giddiness Orthostatic hypotension Charmaine albicans infection Surgical History History of carpal tunnel release History of pubovaginal sling Hx of eye surgery Hx of cystoscopy Hx of hysterectomy Hx of cholecystectomy History of esophagogastroduodenoscopy (EGD) Hx of colonoscopy Family History Father Diabetes Mother Heart problem Brother Diabetes Social History Housing: Apartment Are you a primary patient care secretary to a significant other at home: No Do you presently have visiting nurse or other home services: Yes Alcohol intake: never Patient Tobacco Use Status: Never used Tobacco e-Cigarette/Vaping Use: Never Used Second Hand Smoke Exposure: No service: No Current occupational status: disabled Gender identity: Female Cognitive needs: Yes Hearing needs: No Vision needs: Yes Female Reproductive History Menstrual Age of Menarche: 10 Physical Exam Vital Signs: BMI result Body Mass Index 31.3 Const General: cooperative and healthy appearing Nutritional Appearance: overweight Orientation/consciousness: oriented to person Limitations: no limitations Neck Neck: Yes normal visual inspection Thyroid: Thyroid normal Resp Effort & Inspection: normal respiratory effort Cardio Jugular venous distension: no JVD Rate: regular rate Rhythm: regular rhythm Heart sounds: S1 normal heart sound present and S2 normal heart sound present Neuro General: oriented to person Extrem Other: Visual exam of foot performed. No ulcerations or open lesions. No onchomycosis, no callouses. Sensation intact to monofilament exam. Vibratory sensation is normal with 128 Hz tuning fork. Results Reviewed Results Reviewed: Laboratory Tests 11/20/23 02/25/24 11:11 13:51 BUN 22 H Creatinine 0.79 Estimated GFR > 60 Hgb A1c (Clinic) 5.3 Hemoglobin A1c % 5.5 Calcium 9.4 Triglycerides 100 Cholesterol 103 LDL Cholesterol, Calc 39 HDL Cholesterol 44 Vitamin B12 412 25-OH Vitamin D Total 49.8 TSH 0.17 L Free T4 1.12 Assessment & Plan Assessment & Plan (1) Type 2 diabetes mellitus 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, with director long term care current use of insulin pump: Code(s): E11.8 - Type 2 diabetes mellitus with unspecified 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s; Z96.41 - Presence of insulin pump (external) (internal) Category: Medical Plan: 69-year-old type 2 diabetic on an insulin pump and Trulicity. She is extremely well controlled without hypoglycemia. No changes were made to pump settings today. Blood pressure and cholesterol are in excellent control. Patient teaching: The patient was counseled to always carry a source of sugar and on the rule of 15's: Take 3 glucose tablets and repeat again in 15 minutes if blood sugar is not in normal range. Continue to repeat every 15 minutes until blood sugar is normal. The patient was counseled to achieve a target A1C of 7% (154 avg). Fasting blood sugars should be 90-130 in the morning and less than 180 two hours after meals. Reviewed the relationship between poor diabetic control and the developement of 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s. Backup insulin plan is now 8 units of Lantus and usual doses of short-acting insulin before the meal. Her insulin requirements have been dramatically reduced on a pump Medications: New insulin glargine (Lantus Solostar U-100 Insulin) 9 units (0.09 mL) subcut QPM PRN 3 mL 2RF prn pump failure E11.8 - Type 2 diabetes mellitus with unspecified 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s, Z96.41 - Presence of insulin pump (external) (internal) Discontinued Lantus Solostar U-100 Insulin (insulin glargine) Discontinued Reason: Duplicate 33 units (0.33 mL) subcut DAILY 15 mL 5RF NS Coding Level of Care Code Est Pt Level 5 (36697) Diagnoses Type 2 diabetes mellitus 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, with director long term care current use of insulin pump E11.8; Z96.41 Time Spent (min) 50 Comment Time spent reviewing labs/previous provider notes, face to face, chart documentation
[2024-05-07 08:26] LABS: Glucose, Whole Blood 201 mg/dL (60-115)
== END 2024-05-07 08:37 | disposition home or self-care (01) ==
PROVIDERS: PCP Internal Medicine; Visit Provider Nurse Practitioner Adult Health
DX: E11.8 Type 2 diabetes mellitus with unspecified 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s (principal); Z96.41 Presence of insulin pump (external) (internal)
CPT/HCPCS: 99215

== ENCOUNTER → 2024-05-07 08:03 | Outpatient (BNVA) | payer OTHER, SELFPAY | PROVIDERS: PCP Internal Medicine; Visit Provider Nurse Practitioner Adult Health | DX: E11.42 Type 2 diabetes mellitus with diabetic polyneuropathy (principal); E11.319 Type 2 diabetes mellitus with unspecified diabetic retinopathy without macular edema; Z79.4 Long term (current) use of insulin; Z79.85 Long-term (current) use of injectable non-insulin antidiabetic drugs; Z96.41 Presence of insulin pump (external) (internal) | CPT/HCPCS: 82947; 99212 ==

== ENCOUNTER 2024-06-01 10:16 | Outpatient (AMB) | payer OTHER, SELFPAY ==
--- NOTE | 2024-06-01 11:15 | MHC.AMDMED ---
Intake Intake Visit Reasons: T2DM Allergies francisco Allergy (Severe, Verified 05/07/24 08:17) Rash Penicillins Allergy (Intermediate, Verified 05/07/24 08:17) RASH/HIVES HPI Comprehensive Diabetes Asmnt Most Recent Diabetes Results: Hemoglobin A1c 6.2 % 06/08/20 Microalb/Creat Ratio 12.2 ug/mg cr (<30) 11/20/23 Cholesterol 103 mg/dL (<200) 11/20/23 HDL Cholesterol 44 mg/dL (>40) 11/20/23 Triglycerides 100 mg/dL (<150) 11/20/23 Creatinine 0.79 mg/dL (0.5-1.4) 11/20/23 Blood Urea Nitrogen 22 mg/dL (9-16) H 11/20/23 Sodium 142 mmol/L (135-145) 11/20/23 Potassium 4.3 mmol/L (3.3-5.1) 11/20/23 Chloride 106 mmol/L (96-108) 11/20/23 Carbon Dioxide 30 mmol/L (22-29) H 11/20/23 Calcium 9.4 mg/dL (8.4-10.2) 11/20/23 AST 46 U/L (5-31) H 11/20/23 ALT 38 U/L (0-31) H 11/20/23 Total Protein 7.2 g/dL (6.5-8.0) 11/20/23 Albumin 3.9 g/dL (3.5-5.0) 11/20/23 [facility] Medical History Type 2 diabetes mellitus 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, with alf current use of insulin pump Type 2 diabetes mellitus 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 Nausea and vomiting Sinusitis History of stroke Colon cancer screening Right ankle swelling Cellulitis of right lower leg Swelling of right lower extremity Left leg pain Left ankle sprain Ankle fracture, left Chronic pain syndrome Dementia 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 Diabetic neuropathy UTI (urinary tract infection) Insomnia Glaucoma Migraine Acquired hypothyroidism Hearing impairment CVA (cerebral vascular accident) Blind left eye Localized swelling, mass and lump, neck Urinary tract infection with pyuria Elevated LFTs Elevated liver enzymes Depression Anxiety Urinary incontinence in female Dementia Osteoarthritis Lumbar spondylosis Pure hypercholesterolemia Type 2 diabetes mellitus with diabetic polyneuropathy Pain of right thumb Allergic rhinitis Hypertension Obesity (BMI 30-39.9) Vitamin D deficiency Dyslipidemia Diabetic polyneuropathy associated with type 2 diabetes mellitus Diabetic 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 type 2 diabetes mellitus 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 Right sided abdominal pain Dizziness and giddiness Orthostatic hypotension Charmaine albicans infection Surgical History History of carpal tunnel release History of pubovaginal sling Hx of eye surgery Hx of cystoscopy Hx of hysterectomy Hx of cholecystectomy History of esophagogastroduodenoscopy (EGD) Hx of colonoscopy Family History Father Diabetes Mother Heart problem Brother Diabetes Social History Housing: Apartment Are you a primary medicare specialist to a significant other at home: No Do you presently have visiting nurse or other home services: Yes Alcohol intake: never Patient Tobacco Use Status: Never used Tobacco e-Cigarette/Vaping Use: Never Used Second Hand Smoke Exposure: No service: No Current occupational status: disabled Gender identity: Female Cognitive needs: Yes Hearing needs: No Vision needs: Yes Female Reproductive History Menstrual Age of Menarche: 10 Assessment & Plan Assessment & Plan (1) Diabetes type 2, uncontrolled: Code(s): E11.65 - Type 2 diabetes mellitus with hyperglycemia Qualifiers: Glycemic state: with hyperglycemia Qualified Code(s): E11.65 - Type 2 diabetes mellitus with hyperglycemia Plan: Patient presents for pump training for? Omnipod 5 with Dexcom G6 Patient's last A1c 5.3% on 02/25/24 The following topics were reviewed today: -effects of stress on glucose levels ??? High Alert: 280 mg/dl ??? Low Alert: 80 mg/dl CGM Values Patient above target 33% Patient at target 66% Patient below target 0% Patient's average glucose for the past 2 weeks 170 mg/dL Patient in auto mode 100% TDD: 14.9 units Basal:81% Bolus:19% Patient's daughter Mary reports, patient's is currently hospitalized. She believes this is why her mother's glucose has been running a little bit high because she is under stress. Patient is not experiencing any hypoglycemia at this time Discussed with daughter transitioning patient from Dexcom G6 to Dexcom G7, explained we need to wait until [place] announces that [facility] pharmac[facility] will be carrying the the Omnipod pods that are compatible with Dexcom G7 Troubleshooting after starting new pod or inserting new insulin set: Occlusion, adhesive tape sensitivity, redness Check BG 2 hours after site change Safety information: Importance of a backup plan, for manual injections, proper prescriptions and emergency supplies ketone strips, and rules for testing for ketones Patient understands the basic concepts of pump therapy, how to give insulin for meals and snacks, how to troubleshoot for hyper and hypoglycemia. Settings verified by extension educator, no changes made to patient's insulin pump settings at today's visit Basal rate(s) (units/hour) : ?12 AM to 10 AM 1.5 units / hr 10AM to 12 AM? 1.25 units / hr Bolus setting Insulin Carbohydrate Ratio (s) 12 AM to 12 AM 1:9 6 PM to 12 AM 1:10 Correction Factor / Sensitivity Factor 12 AM? to 12 AM 1:40 Active Insulin Time:? 4 hours Target(s): ?12 AM? to 12 PM? 120 mg/dL Correct above 120 mg/dL Patient Instructions: Patient will follow-up with extension educator in 2 months Coding Level of Care Code Est Pt Level 1 (58677) Diagnoses Uncontrolled type 2 diabetes mellitus with hyperglycemia E11.65 Glycemic state: with hyperglycemia
== END 2024-06-01 11:16 | disposition home or self-care (01) ==
LOC: HO.ENCR 10:16
PROVIDERS: PCP Internal Medicine; Visit Provider Registered Nurse Diabetes Educator
DX: E11.65 Type 2 diabetes mellitus with hyperglycemia (principal)

== ENCOUNTER → 2024-06-01 10:16 | Outpatient (BNVA) | payer OTHER, SELFPAY | PROVIDERS: PCP Internal Medicine; Visit Provider Registered Nurse Diabetes Educator | DX: E11.65 Type 2 diabetes mellitus with hyperglycemia (principal); Z96.41 Presence of insulin pump (external) (internal) | CPT/HCPCS: 99211 ==

== ENCOUNTER 2024-06-09 14:42 | Outpatient (AMB) | payer OTHER, SELFPAY ==
--- NOTE | 2024-06-09 14:45 | A.OFFVIS_ITS ---
Intake Visit Reasons: Neurogenic bladder- follow up Intake Note: Patient is present for neurogenic bladder f/u Urology Medication:myrbetriq, pyridium, macrobid Antibiotic Allergy:penicillin Blood Thinner:aspirin Cooperative Education Coordinator Required: No Allergies francisco Allergy (Severe, Verified 07/02/24 11:38) Rash Penicillins Allergy (Intermediate, Verified 07/02/24 11:38) RASH/HIVES HPI Comments Details: 06/09/24-Debo is a 69-year-old female who presents today to the office for a follow-up. s/p Botox 200 units on 03/09/2024. The patient is with her daughter who interprets for her. She states the she had less leakage after the procedure. Will cont bladder tx with Botox 200 units every 4-6 months. Review of chart 02/16/2024--Debo is a 69-year-old female who presents today to the office for a follow-up. She had repeat Botox 100 units on 11/25/2023. The patient is with her daughter who interprets for her. She states that she continues to leak. She is getting the urge every 1-1/2 hours and leaks before getting to the bathroom and needs to change her pull up several times during the day. She denies dysuria. The patient voided prior to coming into the office room. Bladder scan PVR 0 mL. Comorbidity diabetes. Plan discussed Botox 200 units. 11/13/23---Debo is followed for OAB, spastic neurogenic bladder with a past medical history of anxiety, dementia, CVA, diabetic neuropathy, HLD, HTN, insomnia, diabetes, osteoarthritis, thyroid disease. She was last seen by me on 06/09/23 for urinary frequency. She was treated for a UTI at that time. She has had bladder Botox injection 100 units on 10/08/2022. She had improvement in her bladder symptoms. She failed PO bladder meds in the past. She is on Myrbetriq 50 mg daily and continues to leak with associated urge. Schedule Botox Bladder injection 100 units under MAC. Consent obtained. Pt to start bactrim DS 2 days prior to botox procedure. I reviewed the renal US results from 09/30/2022 revealed normal findings. I reviewed the urine culture results from 11/07/2022 revealed 10,000 to 50,000 cfu/mL mixed bacterial lin. 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 Type 2 diabetes mellitus 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 Nausea and vomiting Sinusitis History of stroke Colon cancer screening Right ankle swelling Cellulitis of right lower leg Swelling of right lower extremity Left leg pain Left ankle sprain Ankle fracture, left Chronic pain syndrome Dementia 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 Diabetic neuropathy UTI (urinary tract infection) Insomnia Glaucoma Migraine Acquired hypothyroidism Hearing impairment CVA (cerebral vascular accident) Blind left eye Localized swelling, mass and lump, neck Urinary tract infection with pyuria Elevated LFTs Elevated liver enzymes Depression Anxiety Urinary incontinence in female Dementia Osteoarthritis Lumbar spondylosis Pure hypercholesterolemia Type 2 diabetes mellitus with diabetic polyneuropathy Pain of right thumb Allergic rhinitis Hypertension Obesity (BMI 30-39.9) Vitamin D deficiency Dyslipidemia Diabetic polyneuropathy associated with type 2 diabetes mellitus Diabetic 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 type 2 diabetes mellitus 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 Right sided abdominal pain Dizziness and giddiness Orthostatic hypotension Charmaine albicans infection Surgical History History of carpal tunnel release History of pubovaginal sling Hx of eye surgery Hx of cystoscopy Hx of hysterectomy Hx of cholecystectomy History of esophagogastroduodenoscopy (EGD) Hx of colonoscopy Family History Father Diabetes Mother Heart problem Brother Diabetes Social History Housing: Apartment Are you a primary health care aide to a significant other at home: No Do you presently have visiting nurse or other home services: Yes Alcohol intake: never Patient Tobacco Use Status: Never used Tobacco e-Cigarette/Vaping Use: Never Used Second Hand Smoke Exposure: No service: No Current occupational status: disabled Gender identity: Female Cognitive needs: Yes Hearing needs: No Vision needs: Yes Female Reproductive History Menstrual Age of Menarche: 10 Assessment & Plan Assessment & Plan (1) Urge incontinence of urine: Code(s): N39.41 - Urge incontinence Category: Medical (2) Spastic neurogenic bladder: Code(s): N31.8 - Other neuromuscular dysfunction of bladder Category: Medical Plan Will cont bladder tx with Botox 200 units every 4-6 months. Patient Instructions: The patient had an opportunity to ask questions regarding treatment plan. The patient expressed understanding and agreement with the above treatment plan. The patient is aware they should contact our office by phone for worsening of their current condition or the appearance of new symptoms. Compliance is encouraged with any medications and followup testing that is ordered. It is a privilege to be allowed the opportunity to participate in the urologic care of your patient. If you have any questions or concerns regarding treatment for the above conditions please do not hesitate to contact me. The office telephone contact is [phone]. This note is constructed in part using voice recognition software. While every effort has been made to ensure accuracy benzene washer operator errors may have been included. Yours sincerely, Charlie Jones MD Coding Level of Care Code Est Pt Level 3 (04748) Diagnoses Urge incontinence of urine N39.41 Spastic neurogenic bladder N31.8
== END 2024-06-09 16:04 | disposition home or self-care (01) ==
LOC: HO.HUSH 14:42
PROVIDERS: PCP Internal Medicine; Visit Provider Urology
DX: N39.41 Urge incontinence (principal); N31.8 Other neuromuscular dysfunction of bladder
CPT/HCPCS: 99213

== ENCOUNTER → 2024-06-09 14:42 | Outpatient (BNVA) | payer OTHER, SELFPAY | PROVIDERS: PCP Internal Medicine; Visit Provider Urology | DX: N39.41 Urge incontinence (principal); N31.9 Neuromuscular dysfunction of bladder, unspecified | CPT/HCPCS: 99212 ==

== ENCOUNTER 2024-07-02 10:50 | Outpatient (AMB) | payer OTHER, SELFPAY ==
[2024-07-02 10:55] VITALS: BP 120/60; PULSE 94; O2SAT 92; BMI 31.0
--- NOTE | 2024-07-02 10:55 | A.OFFPC_ITS ---
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 Accompanied by: Self / Same As Patient Allergies francisco Allergy (Severe, Verified 07/02/24 11:38) Rash Penicillins Allergy (Intermediate, Verified 07/02/24 11:38) RASH/HIVES Medication List - Last Reconciled 07/02/24 by Elijah Hunter MD [DDisposable Underwear Heavy Absorbency Large (2) - Personal As directed] [Disposable Underpad 30 x 30 Heavy Flow As directed] [ADULT DIAPERS/BRIEFS As directed] aspirin 81 mg PO DAILY atogepant (Qulipta) 30 mg PO DAILY betamethasone dipropionate 0.05% 1 appl topical DAILY bisacodyl (Laxative (bisacodyl)) 10 mg (2 x 5 mg) PO BEDTIME blood sugar diagnostic (FreeStyle Lite Strips) 5 times a day blood-glucose meter,continuous (Dexcom G7 Talent Acquisition Project Manager) As directed blood-glucose sensor (Dexcom G7 Sensor device) As directed blood-glucose transmitter (Dexcom G6 Transmitter device) As directed cholecalciferol (vitamin D3) 125 mcg PO DAILY clonazepam 1 mg PO BEDTIME compr.stocking,knee,long,large As directed diaper,brief,adult,disposable (Overnight Underwear Large) As directed PULL UPS donepezil 10 mg PO BEDTIME dorzolamide-timolol (PF) 2-0.5 % 1 drp ophthalmic (eye) BID dorzolamide-timolol 22.3-6.8 mg/mL 1 drp ophthalmic (eye) BID dulaglutide (Trulicity) 0.75 mg (0.5 mL) subcut QWEEK fluoxetine 20 mg PO BID fluticasone propionate 50 mcg/actuation 2 sprays intranasal DAILY PRN gabapentin 300 mg PO TID 30 days hydroxyzine HCl 25 mg PO TID PRN insulin glargine (Lantus Solostar U-100 Insulin) 9 units (0.09 mL) subcut QPM PRN insulin lispro (Humalog U-100 Insulin) 0 - 76 units (0 - 0.76 mL) subcut DAILY insulin pump cart,auto,BT-cntr (Omnipod 5 G6 Intro Kit (Gen 5) subcutaneous cartridge with controller) As directed insulin pump cart,automated,BT (Omnipod 5 G6 Pods (Gen 5) subcutaneous cartridge) As directed insulin pump cartridge 2 ea subcut Q3D 30 days NS latanoprostene bunod 0.024% (Vyzulta) 1 drp ophthalmic (eye) BEDTIME levothyroxine 125 mcg PO QAM magnesium oxide 400 mg PO BEDTIME melatonin 6 mg PO BEDTIME PRN methylcellulose (laxative) (Fiber Therapy (methylcellulose)) 1,000 mg (2 x 500 mg) PO DAILY PRN midodrine 10 mg PO TID mirabegron ER (Myrbetriq) 50 mg PO DAILY mirtazapine 30 mg PO QPM miscellaneous medical supply Wipes miscellaneous; 100 wipebox/ 3 boxes mupirocin 2% 1 appl topical BID nitrofurantoin monohyd/m-cryst 100 mg (Macrobid) 100 mg PO BID ondansetron 4 mg PO Q8H PRN 15 days pantoprazole 40 mg PO BID pen needle, diabetic (Comfort EZ Pen [place]) As directed injects 4 times a day [Personal Cleansing Wipes (2) As directed] phenazopyridine (Pyridium) 100 mg PO BID 2 days plecanatide (Trulance) 3 mg PO DAILY quetiapine 75 mg PO BEDTIME rabeprazole (AcipHex) 20 mg PO BID rosuvastatin 40 mg PO DAILY scopolamine base 1 patch transdermal Q3D PRN simethicone (Anti-Gas Ultra Strength) 180 mg PO QID sucralfate (Carafate) 1 g PO TID 15 days [UNDERPADS As directed] Tobacco use date assessed: 07/02/24 Fall risk assessment: No Falls in past year Last assessed Fall Risk: 07/02/24 Dental Screening Dental Screen Date: 07/02/24 (dentures ) Did you have a dental visit in the last 12 months?: No Did you have a dental problem in the last 6 months where you did not have access to dental care?: No Was dental information given to patient?: No HPI 4months HPI Details Patient comes in today for her follow up visit - patient has dementia and her daughter assists with her visit and provides any pertinent or relevant information today Her daughter states that patient has been complaining of increased joint pains lately, especially over her knees Has noticed that patient's knee pains often feel worse in the morning She has not noticed any swelling in the patient's knees lately and patient has not fallen or hurt her knees over the past couple of weeks Patient denies any recent headaches or dizziness Denies any exertional chest pains or increased shortness of breath No nausea/ vomiting, no abdominal pain No change in bowel habits noted She was not able to get her follow up labs done yet [facility] Medical History Type 2 diabetes mellitus 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, with retirement current use of insulin pump Type 2 diabetes mellitus 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 Nausea and vomiting Sinusitis History of stroke Colon cancer screening Right ankle swelling Cellulitis of right lower leg Swelling of right lower extremity Left leg pain Left ankle sprain Ankle fracture, left Chronic pain syndrome Dementia 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 Diabetic neuropathy UTI (urinary tract infection) Insomnia Glaucoma Migraine Acquired hypothyroidism Hearing impairment CVA (cerebral vascular accident) Blind left eye Localized swelling, mass and lump, neck Urinary tract infection with pyuria Elevated LFTs Elevated liver enzymes Depression Anxiety Urinary incontinence in female Dementia Osteoarthritis Lumbar spondylosis Pure hypercholesterolemia Type 2 diabetes mellitus with diabetic polyneuropathy Pain of right thumb Allergic rhinitis Hypertension Obesity (BMI 30-39.9) Vitamin D deficiency Dyslipidemia Diabetic polyneuropathy associated with type 2 diabetes mellitus Diabetic 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 type 2 diabetes mellitus long-term (current) use of insulin Right sided abdominal pain Dizziness and giddiness Orthostatic hypotension Charmaine albicans infection Surgical History History of carpal tunnel release History of pubovaginal sling Hx of eye surgery Hx of cystoscopy Hx of hysterectomy Hx of cholecystectomy History of esophagogastroduodenoscopy (EGD) Hx of colonoscopy Family History Father Diabetes Mother Heart problem Brother Diabetes Social History Housing: Apartment Are you a primary post acute care registered nurse to a significant other at home: No Do you presently have visiting nurse or other home services: Yes Alcohol intake: never Patient Tobacco Use Status: Never used Tobacco e-Cigarette/Vaping Use: Never Used Second Hand Smoke Exposure: No service: No Current occupational status: disabled Gender identity: Female Cognitive needs: Yes Hearing needs: No Vision needs: Yes Female Reproductive History Menstrual Age of Menarche: 10 Questionnaire PHQ-9 Over the last 2 weeks, how often have you been bothered by any of the following problems? 1. Little interest or pleasure in doing things: several days 2. Feeling down, depressed, or hopeless: more than half the days 3. Trouble falling or staying asleep, or sleeping too much: nearly every day 4. Feeling tired or having little energy: more than half the days 5. Poor appetite or overeating: nearly every day 6. Feeling bad about yourself - or that you are a failure or have let yourself or your family down: not at all 7. Trouble concentrating on things, such as reading the newspaper or watching television: more than half the days 8. Moving or speaking so slowly that other people could have noticed. Or the opposite - being so fidgety or restless that you have been moving around a lot more than usual: nearly every day 9. Thoughts that you would be better off or of hurting yourself in some way: not at all Total score: 16 Depression Screening Interpretation: Positive Depression Screening Follow-up: Existing condition and In treatment Depression Screening Done: Yes 69522 - PHQ-9 Billing: Yes Source: Developed by Drs. Neil Wayne, Lakisha Bell, Latrell Serra and colleagues, with an educational sophie from [employer]. Thrive Questionnaire Date Thrive assessed: 07/02/24 I am a: Patient What is your living situation today?: I have a steady place to live Within the past 12 months, did the food you bought not last and you didn't have the money to get more?: Never true Within the past 12 months, did you worry whether your food would run out before you got money to buy more?: Never true Do you have trouble paying for medicines?: No Do you have trouble getting transportation to medical appointments?: No Do you have trouble paying your heating and electricity bill?: No Do you have trouble taking care of your child, family member or friend?: No Do you have trouble with day-to-day activities such as bathing, preparing meals, shopping, managing finances, etc.?: No Are you currently unemployed and looking for a job?: No Are you interested in more education?: No Please select the resources that you would like help with: None Currently or been in a relationship where the following occur: No concerns reported THRIVE Score: 0 AUDIT C Alcohol Use Questionnaire (AUDIT-C) 1. How often do you have a drink containing alcohol?: Never 3. How often do you have six or more drinks on one occasion?: Never Total Score: 0 Score Reviewed/Action Taken: Yes REJI-7 AMB Questionnaire REJI-7 Date REJI - 7 assessed: 07/02/24 (patient on RX) Feeling nervous, anxious, or on edge: 0 = Not at all Not being able to stop or control worryin = Several days Worrying too much about different things: 0 = Not at all Trouble relaxin = Not at all Being so restless that it is hard to sit still: 0 = Not at all Becoming easily annoyed or irritable: 0 = Not at all Feeling afraid as if something awful might happen: 0 = Not at all Total REJI-7 score (0-4 normal; 5-9 mild; 10-14 moderate; 15-21 severe): 1 Source: Developed by Drs. Neil Wayne, Lakisha Bell, Latrell Serra and colleagues, with an educational sophie from [employer]. Review of Systems Const Details: ROS is obtained primarily through patient's daughter due to patient's dementia as well as limitations due to language barrier Denies chills, Reports fatigue, Denies fever(s) and Denies headache(s) (controlled on current Rx) ENT Denies dysphagia, Denies dizziness, Denies otalgia, Denies headache(s) (controlled on current Rx), Reports neck pain (chronic), Denies odynophagia and Denies sore throat Card Denies chest pain, Denies palpitations and Reports dyspnea on exertion (mild) Resp Denies chest congestion, Denies cough, Reports dyspnea on exertion (mild) and Denies wheezing GI Denies abdominal pain, Reports constipation (chronic - currently controlled on Rx), Denies dysphagia, Denies heartburn, Denies diarrhea, Denies nausea, Denies odynophagia and Denies vomiting Denies hematuria, Denies difficulty voiding, Reports nocturia, Denies dysuria and Reports urinary incontinence Musc Reports back pain, Reports arthralgias (increased lately, especially in her knees - pain feels worse in AM) and Reports neck pain (chronic) Skin/Breast Denies rash Neuro Denies behavioral changes, Denies dizziness, Denies headache(s) (controlled on current Rx), Reports memory loss and Denies tremor(s) Psych Denies behavioral changes, Reports memory loss and Denies mood swings Endo Reports fatigue and Denies palpitations Ethan/Lymph Denies easy bruising Aller/Immun Denies wheezing Physical exam (Primary Care) Vital Signs: Last Vital Signs Pulse 94 07/02/24 10:55 BP 120/60 07/02/24 10:55 Pulse Ox 92 07/02/24 10:55 Oxygen Delivery Method Room Air 07/02/24 10:55 BMI result Body Mass Index 31.0 Tobacco/Smoking Status: Tobacco use Status Tobacco use date assessed 07/02/24 07/02/24 11:02 Patient Tobacco Use Status Never used Tobacco 07/02/24 11:02 e-Cigarette/Vaping Use Never Used 07/02/24 11:02 PHQ-9: PHQ-9 Score PHQ-9: Total score 16 07/02/24 11:39 Depression Screening Interpretation: Positive Depression Screening Follow-up: Ex isting condition and In treatment Thrive Assessment: Date of Thrive Assessment Date Thrive assessed 07/02/24 07/02/24 11:02 Currently or been in a relationship where the following occur: No concerns reported Const General: no acute distress and alert HENMT Ears: TM's normal bilaterally and EAC's normal Throat: Yes posterior oropharynx normal and Yes tonsils normal (no TP congestion) Neck Neck: Yes no lymphadenopathy and Yes supple Thyroid: Thyroid normal Resp Auscultation: clear to auscultation bilaterally, no rales and no wheezes Cardio Rate: regular rate Rhythm: regular rhythm Heart sounds: no murmurs GI Palpation (GI): Soft to palpation and nontender Auscultation: normal bowel sounds General: Yes no CVA tenderness Back/Spine/Pelvis Back: no CVA tenderness Cervical Spine: Cervical spine tenderness Thoracic/Lumbar Spine: lumbar spinal tenderness Skin Rashes: no rashes Extrem General: Yes no clubbing, cyanosis or edema Right lower extremity: knee Details: tenderness; no swelling Left lower extremity: knee Details: tenderness; no swelling Assessment and Plan Assessment & Plan (1) Type 2 diabetes mellitus with diabetic polyneuropathy: Comment: insulin pump-average glucose 166/last A1C 6.2% Code(s): E11.42 - Type 2 diabetes mellitus with diabetic polyneuropathy Qualifiers: Diabetes mellitus retirement insulin use: with retirement use Qualified Code(s): E11.42 - Type 2 diabetes mellitus with diabetic polyneuropathy; 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 Velazquez) as scheduled (2) Diabetic 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 type 2 diabetes mellitus: Code(s): E11.319 - Type 2 diabetes mellitus with unspecified diabetic retinopathy without macular edema Qualifiers: Diabetes mellitus macular edema: without macular edema Diabetic retinopathy severity: with moderate nonproliferative retinopathy Laterality: bilateral Qualified Code(s): E11.3393 - Type 2 diabetes mellitus with moderate nonproliferative diabetic retinopathy without macular edema, bilateral Plan: Reinforced strict diabetes control to help slow down disease progression Follow up with ophthalmology as scheduled (3) Pure hypercholesterolemia: Code(s): E78.00 - Pure hypercholesterolemia, unspecified Plan: She was not able to get her follow up labs done yet - have advised her daughter to help her get these done and updated AZRA Reinforced low cholesterol diet Continue Rosuvastatin 40 mg QD Will recheck her labs and fasting lipids in 4 months for follow up (4) Migraine: Code(s): G43.909 - Migraine, unspecified, not intractable, without status migrainosus Qualifiers: Intractability: not intractable Migraine type: unspecified Status migrainosus presence: without status migrainosus Qualified Code(s): G43.909 - Migraine, unspecified, not intractable, without status migrainosus Plan: Continue Emgality 120 mg injection once a month - headaches have been well- controlled on her current Rx Follow up with neurology as scheduled (5) Dementia: Code(s): F03.90 - Unspecified dementia, unspecified severity, without behavioral disturbance, psychotic disturbance, mood disturbance, and anxiety Qualifiers: Dementia behavioral disturbance: without behavioral disturbance Dementia type: unspecified type Qualified Code(s): F03.90 - Unspecified dementia without behavioral disturbance Plan: Continue Donepezil 10 mg QD Follow up with neurology as scheduled (6) GERD (gastroesophageal reflux disease): Code(s): K21.9 - Gastro-esophageal reflux disease without esophagitis Qualifiers: Esophagitis presence: without esophagitis Qualified Code(s): K21.9 - Gastro-esophageal reflux disease without esophagitis Plan: Dietary restrictions reinforced Continue Pantoprazole 40 mg BID and Simethicone 100 mg QID PRN (7) Chronic idiopathic constipation: Code(s): K59.04 - Chronic idiopathic constipation Plan: Encouraged again increased oral fluids and dietary fiber Continue Trulance 3 mg QD, Fiber Therapy 1000 mg QD, Colace 100 mg QD PRN and Bisacodyl 10 mg Q HS PRN Follow up with GI as scheduled (8) Elevated LFTs: Code(s): R79.89 - Other specified abnormal findings of blood chemistry Plan: Her LFTs were still slightly elevated and have increased slightly from previous on her labs done back in November 2023 - is most likely related to her weight Will continue to monitor her LFTs regularly (9) Acquired hypothyroidism: Code(s): E03.9 - Hypothyroidism, unspecified Plan: Her TFTs were normal on her labs last done in November 2023 Continue Levothyroxine 125 mcg QD (10) Allergic rhinitis: Code(s): J30.9 - Allergic rhinitis, unspecified Qualifiers: Allergic rhinitis seasonality: unspecified Allergic rhinitis trigger: unspecified Qualified Code(s): J30.9 - Allergic rhinitis, unspecified Plan: Continue Fluticasone 50 mcg nasal spray QD PRN (11) Diffuse idiopathic skeletal hyperostosis of cervical spine: Code(s): M48.12 - Ankylosing hyperostosis [[place]], cervical region Plan: Cervical spine CT done back in 2018 revealed (+) diffuse idiopathic skeletal hyperostosis She was on Tramadol 50 mg Q HS PRN although she has not taken this in a while now as it was not helping She is reportedly doing okay on Gabapentin 300 mg TID at present Follow up with pain management as scheduled (12) Lumbar spondylosis: Code(s): M47.816 - Spondylosis without myelopathy or radiculopathy, lumbar region Plan: Reinforced activity and weight-lifting restrictions Gabapentin also reportedly helps with her low back pain (13) Bilateral knee pain: Code(s): M25.561 - Pain in right knee; M25.562 - Pain in left knee Qualifiers: Chronicity: unspecified Qualified Code(s): M25.561 - Pain in right knee; M25.562 - Pain in left knee Plan: Will send patient for x-rays of both knees for further evaluation (14) Osteoarthritis: Code(s): M19.90 - Unspecified osteoarthritis, unspecified site Qualifiers: Osteoarthritis location: multiple joints Osteoarthritis type: primary Qualified Code(s): M89.49 - Other hypertrophic osteoarthropathy, multiple sites Plan: Involves multiple joints - have advised patient's daughter that her recent increasing knee pains are also likely due to OA Patient has been using OTC pain patches PRN and OTC Tylenol PRN although she has been cautioned against taking too much Tylenol due to her elevated LFTs in the past Will consider referral to orthopedics if her joint symptoms get worse (15) Overactive bladder: Code(s): N32.81 - Overactive bladder Plan: Continue Oxybutynin ER 10 mg QD; has failed multiple other Rx and urology is reportedly now considering injecting Botox into her urinary bladder muscles to help control her symptoms better if Rx are no longer helping Continue Mybetriq ER 50 mg QD Follow up with urology as scheduled (16) Vitamin D deficiency: Code(s): E55.9 - Vitamin D deficiency, unspecified Plan: Corrected - continue Vitamin D3 125 mcg QD (17) Glaucoma: Code(s): H40.9 - Unspecified glaucoma Qualifiers: Glaucoma type: unspecified Laterality: bilateral Qualified Code(s): H40.9 - Unspecified glaucoma Plan: S/P left eye surgery a few months ago Continue Prednisolone acetate 1% 1 drop into the left eye QID Continue Dorzolamide-Timolol 22.3-6.8 mg/ml 1 drop to both eyes BID She is also on Xiidra 5% 1 drop to eye BID for dry eyes Follow up with [facility] as scheduled (18) Insomnia: Code(s): G47.00 - Insomnia, unspecified Qualifiers: Insomnia type: unspecified Qualified Code(s): G47.00 - Insomnia, unspecified Plan: Sleep hygiene reinforced Continue Melatonin 6 mg Q HS PRN Mirtazapine and Quetiapine also helps with her sleep at night (19) Anxiety: Code(s): F41.9 - Anxiety disorder, unspecified Plan: Continue Hydroxyzine 25 mg TID PRN and Clonazepam 1 mg Q HS (20) Depression: Code(s): F32.9 - Major depressive disorder, single episode, unspecified Qualifiers: Active/Remission status: currently active Depression Type: major depressive disorder Major depression episode severity: unspecified Major depression recurrence: recurrent Qualified Code(s): F33.9 - Major depressive disorder, recurrent, unspecified Plan: Continue Fluoxetine 20 mg BID, Mirtazapine 30 mg Q HS and Quetiapine 75 mg Q HS Follow up with psychiatry as scheduled (21) Obesity (BMI 30-39.9): Code(s): E66.9 - Obesity, unspecified Plan: Reinforced diet; exercise and weight loss are not realistic in her case given her dementia and multiple medical and physical comorbidities Plan Follow up in 4 months Orders: Orders XR knee LT 4V 24 M25.562 - Pain in left knee XR knee RT 4V 07/02/24 M25.561 - Pain in right knee Complete Blood Count Auto Diff 4 Months D64.9 - Anemia, unspecified Lipid Panel 4 Months E78.00 - Pure hypercholesterolemia, unspecified Hemoglobin A1c 4 Months E11.9 - Type 2 diabetes mellitus without 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s Comprehensive [place]. Panel Fast 4 Months E78.00 - Pure hypercholesterolemia, unspecified Microalbumin, Random (w Creat) 4 Months E11.9 - Type 2 diabetes mellitus without 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s UA CC w/rflx Micro + Cult 4 Months R30.0 - Dysuria TSH reflex Free T4 4 Months E78.00 - Pure hypercholesterolemia, unspecified Coding Level of Care Code Est Pt Level 4 (09090) Complex EM visit Add On G2211 Diagnoses Type 2 diabetes mellitus with diabetic polyneuropathy, with long-term current use of insulin E11.42; Z79.4 Diabetes mellitus retirement insulin use: with termite exterminator use 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 edema associated with type 2 diabetes mellitus E11.3393 Diabetes mellitus macular edema: without macular edema Diabetic retinopathy severity: with moderate nonproliferative retinopathy Laterality: bilateral Pure hypercholesterolemia E78.00 Migraine without status migrainosus, not intractable, unspecified migraine type G43.909 Intractability: not intractable Migraine type: unspecified Status migrainosus presence: without status migrainosus Dementia without behavioral disturbance, unspecified dementia type F03.90 Dementia behavioral disturbance: without behavioral disturbance Dementia type: unspecified type Gastroesophageal reflux disease without esophagitis K21.9 Esophagitis presence: without esophagitis Chronic idiopathic constipation K59.04 Elevated LFTs R79.89 Acquired hypothyroidism E03.9 Allergic rhinitis, unspecified seasonality, unspecified trigger J30.9 Allergic rhinitis seasonality: unspecified Allergic rhinitis trigger: unspecified Diffuse idiopathic skeletal hyperostosis of cervical spine M48.12 Lumbar spondylosis M47.816 Pain in both knees, unspecified chronicity M25.561; M25.562 Chronicity: unspecified Primary osteoarthritis involving multiple joints M89.49 Osteoarthritis location: multiple joints Osteoarthritis type: primary Overactive bladder N32.81 Vitamin D deficiency E55.9 Glaucoma of both eyes, unspecified glaucoma type H40.9 Glaucoma type: unspecified Laterality: bilateral Insomnia, unspecified type G47.00 Insomnia type: unspecified Anxiety F41.9 Episode of recurrent major depressive disorder, unspecified depression episode severity F33.9 Active/Remission status: currently active Depression Type: major depressive disorder Major depression episode severity: unspecified Major depression recurrence: recurrent Obesity (BMI 30-39.9) E66.9
== END 2024-07-02 11:47 | disposition home or self-care (01) ==
PROVIDERS: PCP Internal Medicine; Visit Provider Internal Medicine
DX: E11.42 Type 2 diabetes mellitus with diabetic polyneuropathy (principal); Z79.4 Long term (current) use of insulin; E11.3393 Type 2 diabetes mellitus with moderate nonproliferative diabetic retinopathy without macular edema, bilateral; F03.90 Unspecified dementia, unspecified severity, without behavioral disturbance, psychotic disturbance, mood disturbance, and anxiety; F33.9 Major depressive disorder, recurrent, unspecified; E78.00 Pure hypercholesterolemia, unspecified; G43.909 Migraine, unspecified, not intractable, without status migrainosus; K21.9 Gastro-esophageal reflux disease without esophagitis; K59.04 Chronic idiopathic constipation; R79.89 Other specified abnormal findings of blood chemistry; E03.9 Hypothyroidism, unspecified; J30.9 Allergic rhinitis, unspecified

== ENCOUNTER → 2024-07-02 10:50 | Outpatient (BNVA) | payer OTHER, SELFPAY | PROVIDERS: PCP Internal Medicine; Visit Provider Internal Medicine | DX: E11.42 Type 2 diabetes mellitus with diabetic polyneuropathy (principal); E11.3393 Type 2 diabetes mellitus with moderate nonproliferative diabetic retinopathy without macular edema, bilateral; E78.00 Pure hypercholesterolemia, unspecified; F03.90 Unspecified dementia, unspecified severity, without behavioral disturbance, psychotic disturbance, mood disturbance, and anxiety; K21.9 Gastro-esophageal reflux disease without esophagitis; K59.04 Chronic idiopathic constipation; G43.909 Migraine, unspecified, not intractable, without status migrainosus; R79.89 Other specified abnormal findings of blood chemistry; E03.9 Hypothyroidism, unspecified; Z79.4 Long term (current) use of insulin; Z79.899 Other long term (current) drug therapy | CPT/HCPCS: 99212 ==

== ENCOUNTER 2024-07-05 12:14 | Outpatient (REF) | payer OTHER, SELFPAY ==
[2024-07-05 12:41] LABS: MANUAL DIFF FLAG NO
[2024-07-05 13:03] LABS: Basophils Percent Auto 0.7 % (0-2); Eosinophils Absolute Auto 0.2 X10*3/uL (0.0-0.4); Eosinophils Percent Auto 3.9 % (0-4); Hemoglobin 12.5 g/dl (12.0-16.0); Imm Gran Abs Auto 0.01 X10*3/uL (0.00-0.03); Imm Gran Pct Auto 0.2 % (0.0-0.4); Lymphocytes Absolute Auto 1.5 X10*3/uL (1.2-4.9); Lymphocytes Percent Auto 35.3 % (20-40); Mean Corpuscular HGB Conc 33.8 g/dl (31.0-35.0); Mean Corpuscular Volume 91.8 fL (80.0-98.0); Mean Platelet Volume 9.2 fL (9.4-12.3); Monocytes Absolute Auto 0.3 X10*3/uL (0.1-1.2); Monocytes Percent Auto 7.1 % (2-11); Neutrophils Absolute Auto 2.3 x10*3/uL (2.0-8.3); Neutrophils Percent Auto 52.8 % (45-73); Platelet Count 149 X10*3/uL (160-400); Red Blood Count 4.03 X10*6/uL (4.20-5.50); Red Cell Distribution Width 12.9 % (11.0-16.0); White Blood Count 4.4 X10*3/uL (4.8-10.8)
[2024-07-05 13:09] LABS: Appearance Urine Cloudy; Color Urine Yellow; Glucose Urine UA Negative (Negative); Leukocyte Esterase Urine Negative (Negative); Nitrite Urine Negative (Negative); PH 6.5 (5.0-9.0); Urine Blood Negative (Negative); Urine Ketones Negative (Negative); Urine Protein Negative (Neg-Trace)
[2024-07-05 13:59] LABS: Alanine Aminotransferase 35 U/L (0-31); Albumin Level 3.9 g/dL (3.5-5.0); Alkaline Phosphatase 117 U/L (39-117); Anion Gap 11 (12-20); Aspartate Amino Transferase 37 U/L (5-31); Bilirubin Total 0.4 mg/dL (0.0-1.0); Blood Urea Nitrogen 18 mg/dL (9-16); Calcium 9.7 mg/dL (8.4-10.2); Carbon Dioxide 29 mmol/L (22-29); Chloride 108 mmol/L (96-108); Cholesterol 98 mg/dL (<200); Estimated Glomerular Filt Rate > 60; Glucose Fasting 114 mg/dL (60-99); HDL Cholesterol 45 mg/dL (>40); LDL Cholesterol Calculated 32 mg/dL (<100); Potassium 4.3 mmol/L (3.3-5.1); Sodium 144 mmol/L (135-145); Total Protein 7.1 g/dL (6.5-8.0); Triglycerides 105 mg/dL (<150)
[2024-07-05 14:00] LABS: Estimated Average Glucose 128 mg/dL; Hemoglobin A1c % 6.1 % (<6.0)
[2024-07-05 14:07] LABS: Free T4 (Free Thyroxine) 1.09 ng/dL (0.71-1.85); TSH reflex Free T4 0.08 uIU/mL (0.32-4.0); Thyroid Stimulating Hormone 0.08 uIU/mL (0.32-4.0); Vitamin D 25-OH Total 47.1 ng/mL (>30)
[2024-07-05 14:13] LABS: Microalbum/Creatinine Ratio Ur 10.8 ug/mg cr (<30)
[2024-07-05 14:25] LABS: Folate 14.4 ng/mL (> or = 4.0); Vitamin B12 397 pg/mL (200-900)
== END 2024-07-05 12:15 | disposition home or self-care (01) ==
LOC: HO.LAB 12:14
PROVIDERS: PCP Internal Medicine; Visit Provider Internal Medicine
DX: D64.9 Anemia, unspecified (principal); E03.9 Hypothyroidism, unspecified; E78.00 Pure hypercholesterolemia, unspecified; E11.9 Type 2 diabetes mellitus without 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s; E53.8 Deficiency of other specified B group vitamins; R30.0 Dysuria; E55.9 Vitamin D deficiency, unspecified
CPT/HCPCS: 36415; 80053; 80061; 81003; 82043; 82306; 82570; 82607; 82746; 83036; 84439; 84443; 85025

== ENCOUNTER 2024-08-03 07:26 | Day surgery (SDC) | payer OTHER, SELFPAY ==
--- NOTE | 2024-07-30 13:33 | P.CONAN_ITS ---
Documented by User: Jennifer Ervin NP 07/30/24 13:36 HPI - Anesthesia Eval Consult details Narrative: 69yo F for Cystoscopy Bladder Botox Injection 200 units s/p same 02/2024 with TIVA PMFSH Active Problems Active Problems: All Active Problems Bilateral knee pain (Acute) Type 2 diabetes mellitus 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, with terminal manager current use of insulin pump (Acute) Spastic neurogenic bladder (Acute) Abdominal pain (Acute) Tubular adenoma of colon (Acute) Gastroparesis (Acute) Urge incontinence of urine (Acute) Uninhibited neurogenic bladder (Acute) Diabetes mellitus (Acute) Goiter (Acute) Delayed gastric emptying (Acute) Diffuse idiopathic skeletal hyperostosis of cervical spine (Acute) Aortic valve calcification (Acute) Chronic pain of left ankle (Acute) Overactive bladder (Acute) Diabetes type 2, uncontrolled (Acute) Simple ovarian cyst (Acute) QT prolongation (Acute) Hemorrhoids (Acute) Rectocele (Acute) GERD (gastroesophageal reflux disease) (Acute) Chronic idiopathic constipation (Acute) Chronic pain syndrome (Acute) Dementia 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 (Acute) Diabetic neuropathy (Acute) Insomnia (Acute) Glaucoma (Acute) Migraine (Acute) Acquired hypothyroidism (Acute) Hearing impairment (Acute) Depression (Acute) Anxiety (Acute) Osteoarthritis (Acute) Lumbar spondylosis (Acute) Pure hypercholesterolemia (Acute) Allergic rhinitis (Acute) Hypertension (Acute) Obesity (BMI 30-39.9) (Acute) Vitamin D deficiency (Acute) Dyslipidemia (Acute) Diabetic 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 type 2 diabetes mellitus (Acute) MCFP (current) use of insulin (Acute) Dizziness and giddiness (Acute) Orthostatic hypotension (Acute) Past Medical History Medical History Type 2 diabetes mellitus 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, with terminal manager current use of insulin pump Type 2 diabetes mellitus 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 Nausea and vomiting Sinusitis History of stroke Colon cancer screening Right ankle swelling Cellulitis of right lower leg Swelling of right lower extremity Left leg pain Left ankle sprain Ankle fracture, left Chronic pain syndrome Dementia 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 Diabetic neuropathy UTI (urinary tract infection) Insomnia Glaucoma Migraine Acquired hypothyroidism Hearing impairment CVA (cerebral vascular accident) Blind left eye Localized swelling, mass and lump, neck Urinary tract infection with pyuria Elevated LFTs Elevated liver enzymes Depression Anxiety Urinary incontinence in female Dementia Osteoarthritis Lumbar spondylosis Pure hypercholesterolemia Type 2 diabetes mellitus with diabetic polyneuropathy Pain of right thumb Allergic rhinitis Hypertension Obesity (BMI 30-39.9) Vitamin D deficiency Dyslipidemia Diabetic polyneuropathy associated with type 2 diabetes mellitus Diabetic 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 type 2 diabetes mellitus supervisor intermediates (current) use of insulin Right sided abdominal pain Dizziness and giddiness Orthostatic hypotension Charmaine albicans infection Family History Family History Father Diabetes Mother Heart problem Brother Diabetes Family history of problems with anesthesia: No Surgical History Surgical History History of carpal tunnel release History of pubovaginal sling Hx of eye surgery Hx of cystoscopy Hx of hysterectomy Hx of cholecystectomy History of esophagogastroduodenoscopy (EGD) Hx of colonoscopy History of Problems with Anesthesia: No Social History Social History Housing: Apartment Are you a primary elderly caregiver to a significant other at home: No Do you presently have visiting nurse or other home services: Yes Alcohol intake: never Patient Tobacco Use Status: Never used Tobacco e-Cigarette/Vaping Use: Never Used Second Hand Smoke Exposure: No Advance Directives: No Advance Directives Information Provided: Yes service: No Current occupational status: disabled Gender identity: Female Cognitive needs: Yes Hearing needs: No Vision needs: Yes Meds Allergies Allergy/AdvReac Type Severity Reaction Status Date / Time francisco Allergy Severe Rash Verified 08/03/24 07:58 Penicillins Allergy Intermediate RASH/HIVES Verified 08/03/24 07:58 Active Medications: Current Medications Botulinum Toxin Type A (Onabotulinumtoxina 200 Unit Vial) 200 unit INTRADETRU ONCE ONE Stop: 08/03/24 08:01 Home Medications ?Medication ?Instructions ?Recorded ?Confirmed ?Last Taken ?Type dorzolamide 22.3 mg-timolol 6.8 1 drp ophthalmic (eye) BID 09/27/20 07/02/24 Unknown History mg/mL eye drops quetiapine 25 mg tablet 75 mg PO BEDTIME 09/27/20 07/02/24 Unknown History melatonin 3 mg tablet 6 mg PO BEDTIME PRN Insomnia 05/08/21 07/02/24 Unknown History mirtazapine 30 mg tablet 30 mg PO QPM 01/07/22 07/02/24 Unknown History clonazepam 0.5 mg tablet 1 mg PO BEDTIME 08/29/22 07/02/24 Unknown History blood-glucose transmitter (Dexcom 10/24/22 07/02/24 Unknown History G6 Transmitter device) dorzolamide 2 %-timolol 0.5 % (PF) 1 drp ophthalmic (eye) BID 08/18/23 07/02/24 Unknown History eye drops atogepant 30 mg tablet (Qulipta) 30 mg PO DAILY migraine 02/04/24 07/02/24 Unknown History latanoprostene bunod 0.024 % eye 1 drp ophthalmic (eye) BEDTIME 02/04/24 07/02/24 Unknown History drops (Vyzulta) mupirocin 2 % topical ointment 1 appl topical BID 02/04/24 07/02/24 Unknown History Exam Pertinent Lab Results Pertinent Lab Results: Laboratory Tests 07/05/24 12:40 WBC 4.4 L Hgb 12.5 Hct 37.0 Plt Count 149 L Sodium 144 Potassium 4.3 Chloride 108 Carbon Dioxide 29 BUN 18 H Creatinine 0.80 Narrative Narrative: EKG 07/2023 normal sinus rhythm with horizontal access, long QT interval. No significant change noted from previous EKGs. ECHO 2020 Conclusions: - The left ventricular systolic function is normal. The calculated ejection fraction is 66% by biplane method. - There is mild calcification of the aortic valve. - No obvious valvular pathology seen on this study. Assessment and Plan Assessment Anesthesia Assessment: Chart Reviewed Final Anesthetic Review Family History of Problems with Anesthesia: No History of Problems with Anesthesia: No Documented by User: Giuliano Scott MD 08/03/24 08:22 [facility] Past Medical History Medical History Type 2 diabetes mellitus 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, with detention current use of insulin pump Type 2 diabetes mellitus 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 Nausea and vomiting Sinusitis History of stroke Colon cancer screening Right ankle swelling Cellulitis of right lower leg Swelling of right lower extremity Left leg pain Left ankle sprain Ankle fracture, left Chronic pain syndrome Dementia 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 Diabetic neuropathy UTI (urinary tract infection) Insomnia Glaucoma Migraine Acquired hypothyroidism Hearing impairment CVA (cerebral vascular accident) Blind left eye Localized swelling, mass and lump, neck Urinary tract infection with pyuria Elevated LFTs Elevated liver enzymes Depression Anxiety Urinary incontinence in female Dementia Osteoarthritis Lumbar spondylosis Pure hypercholesterolemia Type 2 diabetes mellitus with diabetic polyneuropathy Pain of right thumb Allergic rhinitis Hypertension Obesity (BMI 30-39.9) Vitamin D deficiency Dyslipidemia Diabetic polyneuropathy associated with type 2 diabetes mellitus Diabetic 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 type 2 diabetes mellitus MCFP (current) use of insulin Right sided abdominal pain Dizziness and giddiness Orthostatic hypotension Charmaine albicans infection Family History Family History Father Diabetes Mother Heart problem Brother Diabetes Surgical History Surgical History History of carpal tunnel release History of pubovaginal sling Hx of eye surgery Hx of cystoscopy Hx of hysterectomy Hx of cholecystectomy History of esophagogastroduodenoscopy (EGD) Hx of colonoscopy Social History Social History Housing: Apartment Are you a primary elderly caregiver to a significant other at home: No Do you presently have visiting nurse or other home services: Yes Alcohol intake: never Patient Tobacco Use Status: Never used Tobacco e-Cigarette/Vaping Use: Never Used Second Hand Smoke Exposure: No Advance Directives: No Advance Directives Information Provided: Yes service: No Current occupational status: disabled Gender identity: Female Cognitive needs: Yes Hearing needs: No Vision needs: Yes Meds Allergies Allergy/AdvReac Type Severity Reaction Status Date / Time francisco Allergy Severe Rash Verified 08/03/24 07:58 Penicillins Allergy Intermediate RASH/HIVES Verified 08/03/24 07:58 Home Medications ?Medication ?Instructions ?Recorded ?Confirmed ?Last Taken ?Type dorzolamide 22.3 mg-timolol 6.8 1 drp ophthalmic (eye) BID 09/27/20 07/02/24 Unknown History mg/mL eye drops quetiapine 25 mg tablet 75 mg PO BEDTIME 09/27/20 07/02/24 Unknown History melatonin 3 mg tablet 6 mg PO BEDTIME PRN Insomnia 05/08/21 07/02/24 Unknown History mirtazapine 30 mg tablet 30 mg PO QPM 01/07/22 07/02/24 Unknown History clonazepam 0.5 mg tablet 1 mg PO BEDTIME 08/29/22 07/02/24 Unknown History blood-glucose transmitter (Dexcom 10/24/22 07/02/24 Unknown History G6 Transmitter device) dorzolamide 2 %-timolol 0.5 % (PF) 1 drp ophthalmic (eye) BID 08/18/23 07/02/24 Unknown History eye drops atogepant 30 mg tablet (Qulipta) 30 mg PO DAILY migraine 02/04/24 07/02/24 Unknown History latanoprostene bunod 0.024 % eye 1 drp ophthalmic (eye) BEDTIME 02/04/24 07/02/24 Unknown History drops (Vyzulta) mupirocin 2 % topical ointment 1 appl topical BID 02/04/24 07/02/24 Unknown History Exam Airway Mallampati Class: II TM Dist: <=3cm Neck ROM: Full Denture: Upper and Lower Loose/Missing/Broken Teeth: Upper Heart: ok Lungs: ok Assessment and Plan Assessment Anesthesia Assessment: Anesthesia Plan Discussed Final Anesthetic Review NPO: Yes ASA Class: IV Final Preanesthetic Review: No Changes in Pt Med Stat, Meds/Allgs Chart Reviewed, Consent Obtained/Reviewed and Anes Risks/Benef Reviewed Patient Risk: High Procedure Risk: Low Anesthetic Plan Anesthetic Plan: Agree w/ Assess. and Plan and TIVA Disposition: Standard PACU
[2024-08-03 08:02] VITALS: BMI 30.8
[2024-08-03 08:21] VITALS: BP 137/77; PULSE 90; RESP 12; TEMP 36.1; O2SAT 95
[2024-08-03] MEDS: Lactated Ringers 1,000 ML 100 ML IVCONT (08:33)
--- NOTE | 2024-08-03 08:38 | MHC.SHP ---
Pre-Procedural Eval Section A - 24 Hr Update-Section A only Date of Service: 08/03/24 The patient is an INPATIENT: No The patient has been examined within 24 hours of the surgical procedure. The History & Physical has been completed within 30 days and I have reviewed it.: Yes Section B - Complete if H&P > 30 days Chief Complaint: Neuromuscular dysfunction of bladder, unspecified Allergies: Allergies Allergy/AdvReac Type Severity Reaction Status Date / Time francisco Allergy Severe Rash Verified 08/03/24 07:58 Penicillins Allergy Intermediate RASH/HIVES Verified 08/03/24 07:58 Plan Diagnosis/Plan: Unchanged I have reviewed the history and physical and performed a pertinent physical examination on my patient. No changes have occurred unless specified. Cystoscopy Bladder Botox injection. Time Spent With Patient Time: Total time managing care of this patient today ____ minutes.
[2024-08-03 08:43] LABS: Glucose, Whole Blood 155 mg/dL (60-115)
[2024-08-03 09:14] VITALS: BP 120/74; PULSE 80; RESP 18; TEMP 36.8; O2SAT 95
--- NOTE | 2024-08-03 09:18 | W.PM.OPN ---
Operative Note Operative Note Date of Service: 08/03/24 Narrative: PreOperative Diagnosis: Overactive bladder, spastic neurogenic bladder Post Operative Diagnosis: Overactive bladder, spastic neurogenic bladder Procedure: Cystoscopy with injection 200 units Botox intra detrusor muscle Surgeon: Dr Charlie Jones Anesthesia: General Procedure: After informed consent was verified the patient was brought to the operating room and placed in a supine position. Anesthesia was administered per protocol. Time out was done per protocol. Antibiotics confirmed. Cystoscopy performed with 22 [place] cystoscope. Bladder was emptied of urine. Urine sent for culture. Bladder was filled, on inspection the trigone was in a dependent position due to cystolcel. The bladder was visualized, the right and left ureteral orifices were visualized. Using 200 units of Botox mixed in 10 cc of normal saline; transurethral injections were placed into the posterior wall of the bladder. 0.5cc placed at each injection site. Injections were placed in a grid 5 across and 4 longitudinally. Injections were placed from the inferior to superior position. The bladder was drained, the cystoscope was removed. 2% lidocaine was passed transurethrally. The patient tolerated the procedure and was brought out of anesthesia and taken to the recovery room in stable condition. Drains: None
[2024-08-03 09:19] VITALS: BP 129/75; PULSE 80; RESP 18; O2SAT 96
[2024-08-03 09:24] VITALS: BP 133/77; PULSE 82; RESP 18; O2SAT 96
[2024-08-03 09:29] VITALS: BP 145/76; PULSE 85; RESP 18; O2SAT 96
[2024-08-03] MEDS: Phenazopyridine HCL 100 MG TABLET PO (09:29)
[2024-08-03 09:44] VITALS: BP 151/83; PULSE 81; RESP 16; TEMP 36.8; O2SAT 96
== END 2024-08-03 09:54 | disposition home or self-care (01) ==
PROVIDERS: PCP Internal Medicine; Visit Provider Urology
PROC: 3E0K8GC Introduction of Other Therapeutic Substance into Genitourinary Tract, Via Natural or Artificial Opening Endoscopic (ICD-10-PCS; CPT 52287; principal; 2024-08-03 09:00)
DX: N31.9 Neuromuscular dysfunction of bladder, unspecified (principal); N39.498 Other specified urinary incontinence; N32.81 Overactive bladder; E11.42 Type 2 diabetes mellitus with diabetic polyneuropathy; E11.319 Type 2 diabetes mellitus with unspecified diabetic retinopathy without macular edema; Z96.41 Presence of insulin pump (external) (internal); Z79.4 Long term (current) use of insulin; Z79.85 Long-term (current) use of injectable non-insulin antidiabetic drugs; I10 Essential (primary) hypertension; I95.1 Orthostatic hypotension; F03.90 Unspecified dementia, unspecified severity, without behavioral disturbance, psychotic disturbance, mood disturbance, and anxiety; Z86.73 Personal history of transient ischemic attack (TIA), and cerebral infarction without residual deficits; Z79.899 Other long term (current) drug therapy; Z79.82 Long term (current) use of aspirin; Z88.0 Allergy status to penicillin; Z98.890 Other specified postprocedural states
CPT/HCPCS: 52287; 82947; 87086; 87088; 87186; J0585; J1956; J2003; J2704; J3010

== ENCOUNTER → 2024-08-03 07:26 | Outpatient (BNV) | payer OTHER, SELFPAY | PROVIDERS: PCP Internal Medicine; Visit Provider Urology | DX: N31.9 Neuromuscular dysfunction of bladder, unspecified (principal) | CPT/HCPCS: 52287 ==

== ENCOUNTER 2024-08-19 13:27 | Outpatient (AMB) | payer OTHER, SELFPAY ==
--- NOTE | 2024-08-19 13:33 | AM.OFFVISNUR ---
Intake Visit Reasons: PVR (Botox) Allergies francisco Allergy (Severe, Verified 08/03/24 07:58) Rash Penicillins Allergy (Intermediate, Verified 08/03/24 07:58) RASH/HIVES Office Procedures Post Void Residual Post Residual Void Details: Patient presents to office for PVR s/p botox procedure. Patient daughter translating for patient. Patient reporting improvement of symptoms, but urine smells very strong. UA run to rule out infection, showed dehydration. Reviewed with Dr. Whipple- will send for culture and call patient if infection shows, and to increase fluids. Patient aware and agreeable. Post Void Residual (PVR): 100 [id number] Void Residual by ultrasound Results AMB Urinalysis, Automated UA Leukoctes 70 Benjamin/uL Last Edit by Anson Bowman LPN on 08/19/24 14:01 UA Nitrite Negative Last Edit by Anson Bowman LPN on 08/19/24 14:01 UA Urobilinogen 0.2 mg/dL Last Edit by Anson Bowman LPN on 08/19/24 14:01 UA Protein 15 mg/dL Last Edit by Anson Bowman LPN on 08/19/24 14:01 UA pH 5.5 Last Edit by Anson Bowman LPN on 08/19/24 14:01 UA Blood 0 Alexandr/uL Last Edit by Anson Bowman LPN on 08/19/24 14:01 UA Specific [place] 1.030 Last Edit by Anson Bowman LPN on 08/19/24 14:01 UA Ketone Negative Last Edit by Anson Bowman LPN on 08/19/24 14:01 UA Bilirubin 1 mg/dL Last Edit by Anson Bowman LPN on 08/19/24 14:01 UA Glucose 250 mg/dL Last Edit by Anson Bowman LPN on 08/19/24 14:01 Assessment & Plan Assessment & Plan Orders: Orders AMB Post Void Residual by ultrasound Today N31.8 - Other neuromuscular dysfunction of bladder, N32.81 - Overactive bladder, N39.41 - Urge incontinence AMB Urinalysis Automated Today N31.9 - Neuromuscular dysfunction of bladder, unspecified, N32.81 - Overactive bladder, N39.0 - Urinary tract infection, site not specified, N39.41 - Urge incontinence
== END 2024-08-19 14:36 | disposition home or self-care (01) ==
LOC: HO.HUSH 13:27
PROVIDERS: PCP Internal Medicine; Visit Provider Urology
DX: N39.41 Urge incontinence (principal); N31.9 Neuromuscular dysfunction of bladder, unspecified; N32.81 Overactive bladder; N39.0 Urinary tract infection, site not specified

== ENCOUNTER 2024-08-19 13:27 | Outpatient (REF) | payer OTHER, SELFPAY | END 2024-08-19 13:28 | disposition home or self-care (01) | LOC: HO.LNP 13:27 | PROVIDERS: PCP Internal Medicine; Visit Provider Urology | DX: N31.8 Other neuromuscular dysfunction of bladder (principal); N39.41 Urge incontinence; N31.9 Neuromuscular dysfunction of bladder, unspecified; N32.81 Overactive bladder; N39.0 Urinary tract infection, site not specified; B95.2 Enterococcus as the cause of diseases classified elsewhere; B95.8 Unspecified staphylococcus as the cause of diseases classified elsewhere; Z98.890 Other specified postprocedural states | CPT/HCPCS: 51798; 81003; 87086; 87088; 87186 ==

== ENCOUNTER 2024-08-24 12:23 | Outpatient (AMB) | payer OTHER, SELFPAY ==
--- NOTE | 2024-08-24 12:23 | MHC.OFFVIS ---
Vital Signs 08/24/24 12:24 Height 5 ft 1 in Weight 164 lb 0.383 oz BMI 31.0 BP 110/62 Blood Pressure Location Lt brachial Position Sitting Pulse 96 Pulse Source Pulse Oximeter Pulse Oximetry (%) 96 Oxygen Delivery Method Room Air Intake Visit Reasons: 6 months f/u GERD Intake Note: PRESCRIPTIONS LAST GENERATED simethicone 180 mg capsule?(Anti-Gas Ultra Strength)?180 mg PO QID 120 caps 5RF [place],02/04/24 12:48 (Transmitted) midodrine 10 mg tablet?10 mg PO TID 90 tabs 1RF [place],02/04/24 12:43 (Transmitted) plecanatide 3 mg tablet?(Trulance)?3 mg PO DAILY 30 tabs 6RF [place],02/04/24 12:48 (Transmitted) Pt is still taking all of these medications as instructed per pt daughter. Pt does require refill of midodrine. Relevant Flags or Indicators ? Requires Woodworking Belt Sander? Sirena Edmondson presents in office today for a scheduled 6 mos FUV. CC; No recent labs, diagnostics placed. ? Relevant GI Sx as reported per pt? None ? Hx of any recent surgeries? None. Although, pt did have botox injection for bladder ~2-3 weeks ago. Woodworking Belt Sander Required: Yes Woodworking Belt Sander Services: Woodworking Belt Sander Offered & Declined Woodworking Belt Sander Name: Family Information Interpreted: non-clinical & clinical Accompanied by: Daughter Allergies francisco Allergy (Severe, Verified 09/08/24 11:35) Rash Penicillins Allergy (Intermediate, Verified 09/08/24 11:35) RASH/HIVES HPI HPI 6 months f/u GERD: Details: Assessment & Plan (1) Gastroparesis: Comment: Trulicity in other medications are likely contributing to this and her chronic nausea and vomiting, PATIENT CAN NOT TOLERATE REGLAN Code(s): K31.84 - Gastroparesis Category: Medical (2) Chronic idiopathic constipation: Code(s): K59.04 - Chronic idiopathic constipation Category: Medical (3) GERD (gastroesophageal reflux disease): Code(s): K21.9 - Gastro-esophageal reflux disease without esophagitis Category: Medical Qualifiers: Esophagitis presence: without esophagitis Qualified Code(s): K21.9 - Gastro-esophageal reflux disease without esophagitis (4) Rectocele: Code(s): N81.6 - Rectocele Category: Medical (5) Dementia 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: Comment: Frontotemporal dementia Code(s): F02.81 - Dementia in other diseases classified elsewhere, unspecified severity, with behavioral disturbance Category: Medical (6) Orthostatic hypotension: Code(s): I95.1 - Orthostatic hypotension Category: Medical (7) Dizziness and giddiness: Code(s): R42 - Dizziness and giddiness Category: Medical Plan Nigerien #dtr translates per pt request. She continues on Trulicity, but her N/V has been better - unsure if this is r/t the midodrine effecting the dizziness. They found this very helpful, which is good but I should not be the provider giving refills of this and I will give a temporary supply and then defer to the PCP. As always, I try to keep patient on their diabetic medications but I do question the use of medications such as Trulicity for patient who has gastroparesis and establish nausea and vomiting is a chronic problem. This should be seriously considered by the prescriber She IS having severe GERD. This is directly r/t the gastroparesis, and I'm unsure how much we can do to offset this. However i will try changing from pantoprazole bid to Aciphex bid. The trulance is moving her bowels well. ROV 6 mos. Medications: New midodrine 10 mg PO TID 90 tabs 1RF I95.1 - Orthostatic hypotension, R42 - Dizziness and giddiness rabeprazole (AcipHex) 20 mg PO BID 60 tabs 6RF K21.9 - Gastro-esophageal reflux disease without esophagitis Refilled plecanatide (Trulance) 3 mg PO DAILY 30 tabs 6RF K59.04 - Chronic idiopathic constipation simethicone (Anti-Gas Ultra Strength) 180 mg PO QID 120 caps 5RF On Hold sucralfate (Carafate) Hold Comment: Doctor's Order 1 g PO TID 15 days 45 tabs 0RF pantoprazole Hold Comment: Doctor's Order 40 mg PO BID 180 tabs 2RF TODAYS VISIT Nigerien #dtr translates per pt request. She is here today with her daughter and they say in general things are going well except that she has been experiencing quite a lot of upper abdominal bloating. She denies any medication changes or diet changes, although she was recently started on Levaquin, just yesterday her urine tract. This was after having Botox injections for her neurogenic bladder. I am uncertain how this may be contributing since symptom has only been over the past week or. He says moving her bowels well passing gas well and that her heartburn is well controlled. Because has not blood work in a while will check this to see if there is any concern of infection and will also get an abdominal x-ray to see if this any severe disease at play. Verifies that she has been holding her sucralfate which I want to do because of constipation. Her current medication regimen consists of rabeprazole 20 mg twice a day, Trulance once a day, bisacodyl at nighttime as needed, fiber laxative, simethicone 4 times a day, magnesium 500 mg. Chronic medications that may be contributing to her bloating syndrome given that she has gastroparesis and can not tolerate Reglan are Trulicity, Miabergon, Qulipta, donepazil, Seroquel. I sent a note to her primary care provider to see if he will either continue prescribing midodrine for her near-syncope hypotension or consider referring her to Neurology if he is not convinced that baroreceptor response is part of her problem. However, this medication stopped her falls and her dizziness. Return office visit in 4 to weeks to evaluate her and her x-ray see how bad the stool burden may be. [facility] Medical History (Updated 08/24/24 @ 13:02 by REKHA Chang) Abdominal pain Simple ovarian cyst Diabetes type 2, uncontrolled Overactive bladder Diabetes mellitus Urge incontinence of urine Uninhibited neurogenic bladder Delayed gastric emptying Type 2 diabetes mellitus 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, with usp current use of insulin pump Type 2 diabetes mellitus 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 Nausea and vomiting Sinusitis History of stroke Colon cancer screening Right ankle swelling Cellulitis of right lower leg Swelling of right lower extremity Left leg pain Left ankle sprain Ankle fracture, left Chronic pain syndrome Dementia 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 Diabetic neuropathy UTI (urinary tract infection) Insomnia Glaucoma Migraine Acquired hypothyroidism Hearing impairment CVA (cerebral vascular accident) Blind left eye Localized swelling, mass and lump, neck Urinary tract infection with pyuria Elevated LFTs Elevated liver enzymes Depression Anxiety Urinary incontinence in female Dementia Osteoarthritis Lumbar spondylosis Pure hypercholesterolemia Type 2 diabetes mellitus with diabetic polyneuropathy Pain of right thumb Allergic rhinitis Hypertension Obesity (BMI 30-39.9) Vitamin D deficiency Dyslipidemia Diabetic polyneuropathy associated with type 2 diabetes mellitus Diabetic 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 type 2 diabetes mellitus [facility] (current) use of insulin Right sided abdominal pain Dizziness and giddiness Orthostatic hypotension Charmaine albicans infection Surgical History History of carpal tunnel release History of pubovaginal sling Hx of eye surgery Hx of cystoscopy Hx of hysterectomy Hx of cholecystectomy History of esophagogastroduodenoscopy (EGD) Hx of colonoscopy Family History Father Diabetes Mother Heart problem Brother Diabetes Social History Housing: Apartment Are you a primary cardiac care nurse to a significant other at home: No Do you presently have visiting nurse or other home services: No Alcohol intake: never Patient Tobacco Use Status: Never used Tobacco e-Cigarette/Vaping Use: Never Used Second Hand Smoke Exposure: No service: No Current occupational status: disabled Gender identity: Female Cognitive needs: Yes Hearing needs: No Vision needs: Yes Female Reproductive History Menstrual Age of Menarche: 10 Review of Systems Const Denies fatigue, Denies fever(s), Denies night sweats, Denies poor appetite and Denies weight loss Eyes Details: glasses Reports requires corrective lenses ENT Reports Normal hearing present, Denies dental pain, Denies dysphagia, Denies hearing loss, Denies mouth pain, Denies odynophagia, Denies throat swelling, Denies tongue swelling and Reports other (Dentition adequate) Card Reports no additional complaints Resp Reports no additional complaints GI Details: Denies abdominal pain, Denies melena, Reports bloating, Denies hematochezia, Reports constipation, Reports GI cramping, Denies dysphagia, Denies excessive flatus, Reports early satiety, Reports heartburn, Denies diarrhea, Denies nausea, Denies odynophagia, Denies vomiting and Denies hematemesis Skin/Breast Denies pruritus, Denies lesions, Denies rash and Denies jaundice Neuro Reports Normal hearing present and Denies Abnormal speech present Endo Denies fatigue Aller/Immun Denies throat swelling and Denies tongue swelling Physical Exam Vital Signs: Last Vital Signs Pulse 96 08/24/24 12:24 BP 110/62 08/24/24 12:24 Pulse Ox 96 08/24/24 12:24 Oxygen Delivery Method Room Air 08/24/24 12:24 BMI result Body Mass Index 31.0 Const General: cooperative, no acute distress, well developed and well groomed Nutritional Appearance: well nourished and obese Orientation/consciousness: oriented to person, oriented to place and oriented to time Limitations: language barrier and other limitations HEENT Head: Yes normocephalic and Yes atraumatic Eyes General: appearance normal, both eyes and all related structures Pupils: Equal, round and reactive pupils present Neck Neck: Yes normal visual inspection and Yes no lymphadenopathy Thyroid: Thyroid normal Resp Effort & Inspection: normal respiratory effort and able to speak in complete sentences Auscultation: clear to auscultation bilaterally Cardio Rate: regular rate Rhythm: regular rhythm Heart sounds: Normal, physiologic split S2 sound present Peripheral pulses: radial pulses present and posterior tibial pulses present GI Inspection: Yes distended, Yes Abdominal panniculus present and Yes obesity Palpation (GI): Soft to palpation, nontender, no guarding, not rigid and No hepatosplenomegaly present Percussion: Yes normal to percussion Auscultation: normal bowel sounds Rectal Exam - Female: deferred Skin General skin exam: no rashes or lesions noted, turgor normal, skin not dry, no jaundice, No spider nevi and no striae Rashes: no rashes Nails: normal Neuro General: oriented to person, oriented to place and oriented to time Cranial nerves: Yes Equal, round and reactive pupils present and Yes Normal hearing present Speech: No Abnormal speech present Extrem General: Yes normal to inspection, No clubbing, No cyanosis and No edema Psych Appearance: grossly normal and well kempt Mental Status: mental status grossly normal Speech and movement: Normal speech and movement present Affect: normal affect Attitude: cooperative Thought process: Normal thought process present and not confabulating Thought content: Normal thought content present Insight: Limited insight present (Psych) Judgement: Limited judgement present (Psych) Assessment & Plan Assessment & Plan (1) Gastroparesis: Comment: Trulicity in other medications are likely contributing to this and her chronic nausea and vomiting, PATIENT CAN NOT TOLERATE REGLAN Code(s): K31.84 - Gastroparesis Category: Medical (2) GERD (gastroesophageal reflux disease): Code(s): K21.9 - Gastro-esophageal reflux disease without esophagitis Category: Medical Qualifiers: Esophagitis presence: without esophagitis Qualified Code(s): K21.9 - Gastro-esophageal reflux disease without esophagitis (3) Chronic idiopathic constipation: Code(s): K59.04 - Chronic idiopathic constipation Category: Medical (4) Rectocele: Code(s): N81.6 - Rectocele Category: Medical (5) Abdominal pain: Comment: really bloating/discomfort Code(s): R10.9 - Unspecified abdominal pain Category: Medical Qualifiers: Abdominal location: upper abdomen, unspecified Qualified Code(s): R10.10 - Upper abdominal pain, unspecified Plan [place]ien #dtr translates per pt request. She is here today with her daughter and they say in general things are going well except that she has been experiencing quite a lot of upper abdominal bloating. She denies any medication changes or diet changes, although she was recently started on Levaquin, just yesterday her urine tract. This was after having Botox injections for her neurogenic bladder. I am uncertain how this may be contributing since symptom has only been over the past week or. He says moving her bowels well passing gas well and that her heartburn is well controlled. Because has not blood work in a while will check this to see if there is any concern of infection and will also get an abdominal x-ray to see if this any severe disease at play. Verifies that she has been holding her sucralfate which I want to do because of constipation. Her current medication regimen consists of rabeprazole 20 mg twice a day, Trulance once a day, bisacodyl at nighttime as needed, fiber laxative, simethicone 4 times a day, magnesium 500 mg. Chronic medications that may be contributing to her bloating syndrome given that she has gastroparesis and can not tolerate Reglan are Trulicity, Miabergon, Qulipta, donepazil, Seroquel. I sent a note to her primary care provider to see if he will either continue prescribing midodrine for her near-syncope hypotension or consider referring her to Neurology if he is not convinced that baroreceptor response is part of her problem. However, this medication stopped her falls and her dizziness. Return office visit in 4 to weeks to evaluate her and her x-ray see how bad the stool burden may be. Orders: Orders XR abdomen w decubitus 08/26/24 R10.10 - Upper abdominal pain, unspecified Complete Blood Count Auto Diff 08/26/24 R10.10 - Upper abdominal pain, unspecified Comprehensive Met. Panel 08/26/24 R10.10 - Upper abdominal pain, unspecified Medications: Refilled simethicone (Anti-Gas Ultra Strength) 180 mg PO QID 120 caps 5RF magnesium oxide 400 mg PO BEDTIME 90 tabs 2RF bisacodyl (Laxative (bisacodyl)) 10 mg (2 x 5 mg) PO BEDTIME 60 tabs 6RF K59.04 - Chronic idiopathic constipation rabeprazole 20 mg PO BID 180 tabs 2RF K21.9 - Gastro-esophageal reflux disease without esophagitis plecanatide (Trulance) 3 mg PO DAILY 30 tabs 6RF K59.04 - Chronic idiopathic constipation Discontinued phenazopyridine Take with food Discontinued Reason: Patient no longer taking 100 mg PO BID 2 days 4 tabs 0RF sucralfate Discontinued Reason: Doctor's Order 1 g PO TID 15 days 45 tabs 0RF ondansetron Discontinued Reason: No Longer Medically Relevant 4 mg PO Q8H 15 days PRN 45 tabs 1RF nausea and vomiting pantoprazole Discontinued Reason: Doctor's Order 40 mg PO BID 180 tabs 2RF nitrofurantoin monohyd/m-cryst 100 mg must administer with a meal/food Discontinued Reason: Patient Completed Course 100 mg PO BID 14 caps 0RF Coding Level of Care Code Est Pt Level 4 (29987) Diagnoses Gastroparesis K31.84 Gastroesophageal reflux disease without esophagitis K21.9 Esophagitis presence: without esophagitis Chronic idiopathic constipation K59.04 Rectocele N81.6 Pain of upper abdomen R10.10 Abdominal location: upper abdomen, unspecified Time Spent (min) 36
[2024-08-24 12:24] VITALS: BP 110/62; PULSE 96; O2SAT 96; BMI 31.0
== END 2024-08-24 13:05 | disposition home or self-care (01) ==
PROVIDERS: PCP Internal Medicine; Visit Provider Nurse Practitioner
DX: K31.84 Gastroparesis (principal); K21.9 Gastro-esophageal reflux disease without esophagitis; K59.04 Chronic idiopathic constipation; N81.6 Rectocele; R10.10 Upper abdominal pain, unspecified
CPT/HCPCS: 99214

== ENCOUNTER → 2024-08-24 12:23 | Outpatient (BNVA) | payer OTHER, SELFPAY | PROVIDERS: PCP Internal Medicine; Visit Provider Nurse Practitioner | DX: K31.84 Gastroparesis (principal); K21.9 Gastro-esophageal reflux disease without esophagitis; K59.04 Chronic idiopathic constipation; R10.10 Upper abdominal pain, unspecified; N81.6 Rectocele | CPT/HCPCS: 99212 ==

== ENCOUNTER 2024-08-25 11:00 | Outpatient (AMB) | payer OTHER, SELFPAY ==
--- NOTE | 2024-08-25 11:44 | MHC.AMDMED ---
Intake Intake Visit Reasons: DM W. pump-confirmed Director Of Corporate Marketing Required: Yes Director Of Corporate Marketing Language: Chrome Tanner Name: Pt's Daughter Mary Accompanied by: Daughter Allergies francisco Allergy (Severe, Verified 08/24/24 12:25) Rash Penicillins Allergy (Intermediate, Verified 08/24/24 12:25) RASH/HIVES HPI Comprehensive Diabetes Asmnt Most Recent Diabetes Results: Hemoglobin A1c 6.2 % 06/08/20 Microalb/Creat Ratio 10.8 ug/mg cr (<30) 07/05/24 Cholesterol 98 mg/dL (<200) 07/05/24 HDL Cholesterol 45 mg/dL (>40) 07/05/24 Triglycerides 105 mg/dL (<150) 07/05/24 Creatinine 0.80 mg/dL (0.5-1.4) 07/05/24 Blood Urea Nitrogen 18 mg/dL (9-16) H 07/05/24 Sodium 144 mmol/L (135-145) 07/05/24 Potassium 4.3 mmol/L (3.3-5.1) 07/05/24 Chloride 108 mmol/L (96-108) 07/05/24 Carbon Dioxide 29 mmol/L (22-29) 07/05/24 Calcium 9.7 mg/dL (8.4-10.2) 07/05/24 AST 37 U/L (5-31) H 07/05/24 ALT 35 U/L (0-31) H 07/05/24 Total Protein 7.1 g/dL (6.5-8.0) 07/05/24 Albumin 3.9 g/dL (3.5-5.0) 07/05/24 [facility] Medical History (Updated 08/24/24 @ 13:02 by REKHA Chang) Abdominal pain Simple ovarian cyst Diabetes type 2, uncontrolled Overactive bladder Diabetes mellitus Urge incontinence of urine Uninhibited neurogenic bladder Delayed gastric emptying 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 diabetes mellitus 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, 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 of insulin pump Type 2 diabetes mellitus 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 Nausea and vomiting Sinusitis History of stroke Colon cancer screening Right ankle swelling Cellulitis of right lower leg Swelling of right lower extremity Left leg pain Left ankle sprain Ankle fracture, left Chronic pain syndrome Dementia 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 Diabetic neuropathy UTI (urinary tract infection) Insomnia Glaucoma Migraine Acquired hypothyroidism Hearing impairment CVA (cerebral vascular accident) Blind left eye Localized swelling, mass and lump, neck Urinary tract infection with pyuria Elevated LFTs Elevated liver enzymes Depression Anxiety Urinary incontinence in female Dementia Osteoarthritis Lumbar spondylosis Pure hypercholesterolemia Type 2 diabetes mellitus with diabetic polyneuropathy Pain of right thumb Allergic rhinitis Hypertension Obesity (BMI 30-39.9) Vitamin D deficiency Dyslipidemia Diabetic polyneuropathy associated with type 2 diabetes mellitus Diabetic 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 type 2 diabetes mellitus intermediate frame tender (current) use of insulin Right sided abdominal pain Dizziness and giddiness Orthostatic hypotension Charmaine albicans infection Surgical History History of carpal tunnel release History of pubovaginal sling Hx of eye surgery Hx of cystoscopy Hx of hysterectomy Hx of cholecystectomy History of esophagogastroduodenoscopy (EGD) Hx of colonoscopy Family History Father Diabetes Mother Heart problem Brother Diabetes Social History Housing: Apartment Are you a primary personal care home administrator to a significant other at home: No Do you presently have visiting nurse or other home services: No Alcohol intake: never Patient Tobacco Use Status: Never used Tobacco e-Cigarette/Vaping Use: Never Used Second Hand Smoke Exposure: No service: No Current occupational status: disabled Gender identity: Female Cognitive needs: Yes Hearing needs: No Vision needs: Yes Female Reproductive History Menstrual Age of Menarche: 10 Assessment & Plan Assessment & Plan (1) Diabetic 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 type 2 diabetes mellitus: Code(s): E11.319 - Type 2 diabetes mellitus with unspecified diabetic retinopathy without macular edema Qualifiers: Diabetic retinopathy severity: with moderate nonproliferative retinopathy Diabetes mellitus macular edema: without macular edema Laterality: bilateral Qualified Code(s): E11.3393 - Type 2 diabetes mellitus with moderate nonproliferative diabetic retinopathy without macular edema, bilateral Plan: Patient presents for pump training for? Omnipod 5 with Dexcom G6 Patient's last A1c 6.1% on 07/05/24 The following topics were reviewed today: -effects of stress on glucose levels ??? High Alert: 280 mg/dl ??? Low Alert: 80 mg/dl CGM Values Patient above target 27% Patient at target 73% Patient below target 0% Patient's average glucose for the past 2 weeks 153 mg/dL Patient in auto mode 47% Manual Mode: 53% TDD: 23.7 units Patient's daughter Mary reports, patient is eating very small meals. Currently, she is rarely bolusing for food. Even without bolusing for meals patient's control is within target goal. At today's visit Mary tanner reported that patient ran out of insulin yesterday, when she called pharmacy for refills she was told that they did not have Humalog in stock and they would need to order. Called [facility] pharmacy at today's visit pharmacy reports that insulin is ready for package pick up. At time of visit patient's glucose on Dexcom was 175 mg/dL Reviewed with patient how to use backup plan if patient is unable to use insulin pump. Troubleshooting after starting new pod or inserting new insulin set: Occlusion, adhesive tape sensitivity, redness Check BG 2 hours after site change Safety information: Importance of a backup plan, for manual injections, proper prescriptions and emergency supplies ketone strips, and rules for testing for ketones Settings verified by motion picture equipment supervisor, no changes made to patient's insulin pump settings at today's visit Basal rate(s) (units/hour) : ?12 AM to 10 AM 1.5 units / hr 10AM to 12 AM? 1.25 units / hr Bolus setting Insulin Carbohydrate Ratio (s) 12 AM to 12 AM 1:9 6 PM to 12 AM 1:10 Correction Factor / Sensitivity Factor 12 AM? to 12 AM 1:40 Active Insulin Time:? 4 hours Target(s): ?12 AM? to 12 PM? 120 mg/dL Correct above 120 mg/dL. Patient Instructions: In order to reduce amount of visits to doctors office, I suggested to patient if she believes she needs another appointment with Diabetes Education she can call on a later date. Patient does have follow-up appointment with DOCUMENT CONTROLLER on 09/08/2024 Coding Level of Care Code Est Pt Level 1 (90793) Diagnoses 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 edema associated with type 2 diabetes mellitus E11.3393 Diabetic retinopathy severity: with moderate nonproliferative retinopathy Diabetes mellitus macular edema: without macular edema Laterality: bilateral
== END 2024-08-25 11:46 | disposition home or self-care (01) ==
PROVIDERS: PCP Internal Medicine; Visit Provider Registered Nurse Diabetes Educator
DX: E11.3393 Type 2 diabetes mellitus with moderate nonproliferative diabetic retinopathy without macular edema, bilateral (principal)

== ENCOUNTER → 2024-08-25 11:00 | Outpatient (BNVA) | payer OTHER, SELFPAY | PROVIDERS: PCP Internal Medicine; Visit Provider Registered Nurse Diabetes Educator | DX: E11.3393 Type 2 diabetes mellitus with moderate nonproliferative diabetic retinopathy without macular edema, bilateral (principal); E11.42 Type 2 diabetes mellitus with diabetic polyneuropathy; E11.65 Type 2 diabetes mellitus with hyperglycemia; Z96.41 Presence of insulin pump (external) (internal); Z46.81 Encounter for fitting and adjustment of insulin pump | CPT/HCPCS: 99211 ==

== ENCOUNTER 2024-08-26 13:00 | Outpatient (REF) | payer OTHER, SELFPAY ==
--- NOTE | ~2024-08-26 | XR_ITS ---
EXAMINATION: XR ABDOMEN WITH DECUBITUS VIEWS CLINICAL INDICATION: R10.10 - Upper abdominal pain, unspecified COMPARISON: None available. 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 TECHNIQUE: AP view of the abdomen supine, FINDINGS: There is a normal/nonspecific bowel gas pattern. There is no focally dilated loop or evidence of obstruction. There is moderate fecal residue seen throughout the colon with sparing of the rectum. -No organomegaly. -Aside from mild vascular calcifications, no abnormal soft tissue calcification seen. -Lung bases clear. -Mild levoconvex lumbar scoliosis with moderate to advanced spondylosis. -Mild degenerative changes bilateral hip joints -Cholecystectomy clips present. XR/XR abdomen w decubitus IMPRESSION: 1. No acute findings in the abdomen. 2. Mild constipation. Electronically signed by: Boyd Saenz MD 09/23/2024 10:57 AM [facility]
[2024-08-26 13:20] LABS: MANUAL DIFF FLAG NO
[2024-08-26 13:49] LABS: Basophils Percent Auto 0.5 % (0-2); Eosinophils Absolute Auto 0.1 X10*3/uL (0.0-0.4); Eosinophils Percent Auto 2.3 % (0-4); Hematocrit 36.4 % (37.0-47.0); Imm Gran Abs Auto 0.01 X10*3/uL (0.00-0.03); Imm Gran Pct Auto 0.3 % (0.0-0.4); Lymphocytes Absolute Auto 1.3 X10*3/uL (1.2-4.9); Lymphocytes Percent Auto 34.4 % (20-40); Mean Corpuscular Hemoglobin 30.7 pg (27.0-33.0); Mean Corpuscular Volume 93.1 fL (80.0-98.0); Mean Platelet Volume 9.6 fL (9.4-12.3); Monocytes Absolute Auto 0.3 X10*3/uL (0.1-1.2); Monocytes Percent Auto 6.7 % (2-11); Neutrophils Absolute Auto 2.2 x10*3/uL (2.0-8.3); Neutrophils Percent Auto 55.8 % (45-73); Platelet Count 125 X10*3/uL (160-400); Red Blood Count 3.91 X10*6/uL (4.20-5.50); Red Cell Distribution Width 12.8 % (11.0-16.0); White Blood Count 3.9 X10*3/uL (4.8-10.8)
[2024-08-26 16:36] LABS: Alanine Aminotransferase 36 U/L (0-31); Albumin Level 3.9 g/dL (3.5-5.0); Alkaline Phosphatase 110 U/L (39-117); Anion Gap 8 (12-20); Aspartate Amino Transferase 39 U/L (5-31); Bilirubin Total 0.4 mg/dL (0.0-1.0); Blood Urea Nitrogen 24 mg/dL (9-16); Calcium 9.4 mg/dL (8.4-10.2); Carbon Dioxide 31 mmol/L (22-29); Chloride 106 mmol/L (96-108); Estimated Glomerular Filt Rate > 60; Glucose Random 189 mg/dL (60-115); Potassium 4.4 mmol/L (3.3-5.1); Sodium 141 mmol/L (135-145); Total Protein 6.9 g/dL (6.5-8.0)
== END 2024-08-26 13:01 | disposition home or self-care (01) ==
LOC: HO.XRAY 13:00
PROVIDERS: PCP Internal Medicine; Visit Provider Nurse Practitioner
DX: R10.10 Upper abdominal pain, unspecified (principal)
CPT/HCPCS: 36415; 74021; 80053; 85025

== ENCOUNTER → 2024-08-26 13:20 | Outpatient (BNV) | payer OTHER, SELFPAY | PROVIDERS: PCP Internal Medicine; Visit Provider Radiology Diagnostic Radiology | DX: K59.00 Constipation, unspecified (principal) | CPT/HCPCS: 74021 ==

== ENCOUNTER 2024-09-08 11:24 | Outpatient (AMB) | payer OTHER, SELFPAY ==
[2024-09-08 11:29] VITALS: BP 114/66; PULSE 97; BMI 30.4
--- NOTE | 2024-09-08 11:29 | MHC.OFFVIS ---
Vital Signs 09/08/24 11:29 Height 5 ft 1 in Weight 161 lb 2.526 oz BMI 30.4 BP 114/66 Blood Pressure Location Rt brachial Position Sitting Pulse 97 Pulse Source Pulse Oximeter Intake Visit Reasons: T2DM/CONF Intake Note: Patient presents today for D2MT follow up visit. Last Diabetic Eye exam: 08/2024 Last Podiatry Visit: Doesn't have one Random Glucose: 179 mg/dl HgA1c: 6.1% 07/05/24 Small Arms Repairer Required: No Accompanied by: Daughter Allergies francisco Allergy (Severe, Verified 09/08/24 11:35) Rash Penicillins Allergy (Intermediate, Verified 09/08/24 11:35) RASH/HIVES HPI Comments Details: Patient is 69 year old female with DM type 2 diagnosed 2002 who presents for management of diabetes. She was last seen in April. A1c end of June was 6.1 % she is having some mild lows during the day after breakfast and settings were changed today to prevent lows. She reports some difficulty with sensors falling off early. Past medical history:DM2 GERD, depression, hypertension, hyperlipidemia, hypothyroidism. Micro and macrovascular 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s: + neuropathy, +background retinopathy, + nephropathy + microalbumin, no macrovascular disease. Symptoms reported: occasional numbness, tingling, cramping in lower extremities Hypoglycemia: none recent carries sugar source Hyperglycemia: denies urinary frequency, nocturia, polydypsia Humalog via ominipod pump Total daily dose of insulin 10.1 units 9.8 the basal 0.3 bolus she is on auto mode 100% of the time Dexcom average glucose: 167 Glucose Managment indicator 7.3 % TIme in range: 2 % very high (above 250) 22 % high ?(181-250) 76 % in range ?(70-180] 0 % low (69-55) 0 % ?very low (below 54) 31 Standard Deviation [90] % TIme CGM Active Details [download looks excellent with mild hypoglycemialate am] Also on Trulicity 1.5 mg q.week Exercise: limited due to balance issues Nutrition - diabetes education: currently sees [facility] Kindergarten Aide: 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 1.25 units / hr Bolus setting Insulin Carbohydrate Ratio (s) 12 AM 1:9 6AM 1:12 new 11:30 1:10 Correction Factor / Sensitivity Factor 12 AM?40 Active Insulin Time:? 4 hours Target(s): ?12 AM? to 12 PM? 120 mg/dL Correct above 120 mg/dL [facility] Medical History (Updated 08/24/24 @ 13:02 by REKHA Chang) Abdominal pain Simple ovarian cyst Diabetes type 2, uncontrolled Overactive bladder Diabetes mellitus Urge incontinence of urine Uninhibited neurogenic bladder Delayed gastric emptying Type 2 diabetes mellitus 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, with group home current use of insulin pump Type 2 diabetes mellitus 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 Nausea and vomiting Sinusitis History of stroke Colon cancer screening Right ankle swelling Cellulitis of right lower leg Swelling of right lower extremity Left leg pain Left ankle sprain Ankle fracture, left Chronic pain syndrome Dementia 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 Diabetic neuropathy UTI (urinary tract infection) Insomnia Glaucoma Migraine Acquired hypothyroidism Hearing impairment CVA (cerebral vascular accident) Blind left eye Localized swelling, mass and lump, neck Urinary tract infection with pyuria Elevated LFTs Elevated liver enzymes Depression Anxiety Urinary incontinence in female Dementia Osteoarthritis Lumbar spondylosis Pure hypercholesterolemia Type 2 diabetes mellitus with diabetic polyneuropathy Pain of right thumb Allergic rhinitis Hypertension Obesity (BMI 30-39.9) Vitamin D deficiency Dyslipidemia Diabetic polyneuropathy associated with type 2 diabetes mellitus Diabetic 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 type 2 diabetes mellitus penitentiary (current) use of insulin Right sided abdominal pain Dizziness and giddiness Orthostatic hypotension Charmaine albicans infection Surgical History History of carpal tunnel release History of pubovaginal sling Hx of eye surgery Hx of cystoscopy Hx of hysterectomy Hx of cholecystectomy History of esophagogastroduodenoscopy (EGD) Hx of colonoscopy Family History Father Diabetes Mother Heart problem Brother Diabetes Social History Housing: Apartment Are you a primary coronary care unit nurse to a significant other at home: No Do you presently have visiting nurse or other home services: No Alcohol intake: never Patient Tobacco Use Status: Never used Tobacco e-Cigarette/Vaping Use: Never Used Second Hand Smoke Exposure: No service: No Current occupational status: disabled Gender identity: Female Cognitive needs: Yes Hearing needs: No Vision needs: Yes Female Reproductive History Menstrual Age of Menarche: 10 Physical Exam Vital Signs: Last Vital Signs Pulse 97 09/08/24 11:29 BP 114/66 09/08/24 11:29 BMI result Body Mass Index 30.4 Const Other: Absence of Cushingoid features. Absence of acromegalic features. Neck exam reveals nl size thyroid about 15 gms. No thyroid nodules palpable. Heart S1 S2, Reg R/R. No M/R G. Skin exam reveals absence of vitiligo or acanthosis nigricans. Visual exam of foot performed. No ulcerations or open lesions. No inter digit maceration or fissuring. No onychomycosis, no callouses. Sensation intact to monofilament exam. Vibratory sensation is normal with 128 Hz tuning fork. Results Reviewed Results Reviewed: Laboratory Last Values Glucose (Clinic) 179 mg/dL (60-115) H 09/08/24 11:37 Assessment & Plan Assessment & Plan (1) Type 2 diabetes mellitus 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, with medical terminologist current use of insulin pump: Code(s): E11.8 - Type 2 diabetes mellitus with unspecified 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s; Z96.41 - Presence of insulin pump (external) (internal) Category: Medical Plan: 69-year-old type 2 diabetic with retinopathy, neuropathy and nephropathy with the excellent glycemic control on an Omnipod. She is having some mild lows in the late morning and her insulin settings were changed to prevent lows. She will continue low-dose Trulicity. Because her sensors have been falling off early we will attempt to switch her to a freestyle Antoni 3+. She has a supply of the Dexcom is and we will use those up and schedule an appointment with the Nidia Last CDE to convert over to freestyle. Software upgrade was done today on her Omnipod Coding Level of Care Code Est Pt Level 4 (93737) Complex EM visit Add On G2211 Diagnoses Type 2 diabetes mellitus 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, with group home current use of insulin pump E11.8; Z96.41 Time Spent (min) 40 Comment Reviewing labs/provider notes, glucose sensor/pump reports, face to face, chart doc
[2024-09-08 11:40] LABS: Glucose, Whole Blood 179 mg/dL (60-115)
== END 2024-09-08 12:10 | disposition home or self-care (01) ==
PROVIDERS: PCP Internal Medicine; Visit Provider Nurse Practitioner Adult Health
DX: E11.8 Type 2 diabetes mellitus with unspecified 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s (principal); Z96.41 Presence of insulin pump (external) (internal)
CPT/HCPCS: 99214; G2211

== ENCOUNTER → 2024-09-08 11:24 | Outpatient (BNVA) | payer OTHER, SELFPAY | PROVIDERS: PCP Internal Medicine; Visit Provider Nurse Practitioner Adult Health | DX: Z46.81 Encounter for fitting and adjustment of insulin pump (principal); E11.8 Type 2 diabetes mellitus with unspecified 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s; Z79.85 Long-term (current) use of injectable non-insulin antidiabetic drugs; Z79.4 Long term (current) use of insulin | CPT/HCPCS: 82947; 99212 ==

== ENCOUNTER 2024-12-08 11:23 | Outpatient (AMB) | payer OTHER, SELFPAY ==
--- NOTE | 2024-12-08 11:28 | MHC.PC.OV ---
Vital Signs 12/08/24 11:31 Height 5 ft 1 in Weight 158 lb 8 oz BMI 29.9 BP 110/68 Blood Pressure Location Lt brachial Position Sitting Pulse 89 Pulse Source Pulse Oximeter Temp 97.1 F Temp Source Temporal Artery Scan Pulse Oximetry (%) 98 Oxygen Delivery Method Room Air Intake Visit Reasons: 4mth f/u pham from 11/15/24 Intake Note: Patient is here to follow up on DM, HTN, Migrane. Back Filler Operator Required: Yes Back Filler Operator Language: Plastics Fitter Name: Mary (daughter) Information Interpreted: non-clinical & clinical (pt decline shotgun shell reprinting unit operator service prefer daughter to translate.) Neurology Epilepsy Physician: Present Accompanied by: Daughter Allergies francisco Allergy (Severe, Verified 12/08/24 11:30) Rash Penicillins Allergy (Intermediate, Verified 12/08/24 11:30) RASH/HIVES Tobacco use date assessed: 12/08/24 Fall risk assessment: No Falls in past year Last assessed Fall Risk: 12/08/24 Dental Screening Dental Screen Date: 12/08/24 (dentures ) Did you have a dental visit in the last 12 months?: No Did you have a dental problem in the last 6 months where you did not have access to dental care?: No Was dental information given to patient?: No (Dentures) HPI 4mth f/u pham from 11/15/24 HPI Details reports that she feels dizzy when bendging down sometimes. daughter reports that sometimes the patient does not want to eat solomon islander speaking daugher global director air and climate change reports only drinking lik 3 bottles of water per day [facility] Medical History (Updated 08/24/24 @ 13:02 by REKHA Chang) Abdominal pain Simple ovarian cyst Diabetes type 2, uncontrolled Overactive bladder Diabetes mellitus Urge incontinence of urine Uninhibited neurogenic bladder Delayed gastric emptying Type 2 diabetes mellitus 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, with medical terminologist current use of insulin pump Type 2 diabetes mellitus 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 Nausea and vomiting Sinusitis History of stroke Colon cancer screening Right ankle swelling Cellulitis of right lower leg Swelling of right lower extremity Left leg pain Left ankle sprain Ankle fracture, left Chronic pain syndrome Dementia 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 Diabetic neuropathy UTI (urinary tract infection) Insomnia Glaucoma Migraine Acquired hypothyroidism Hearing impairment CVA (cerebral vascular accident) Blind left eye Localized swelling, mass and lump, neck Urinary tract infection with pyuria Elevated LFTs Elevated liver enzymes Depression Anxiety Urinary incontinence in female Dementia Osteoarthritis Lumbar spondylosis Pure hypercholesterolemia Type 2 diabetes mellitus with diabetic polyneuropathy Pain of right thumb Allergic rhinitis Hypertension Obesity (BMI 30-39.9) Vitamin D deficiency Dyslipidemia Diabetic polyneuropathy associated with type 2 diabetes mellitus Diabetic 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 type 2 diabetes mellitus 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 Right sided abdominal pain Dizziness and giddiness Orthostatic hypotension Charmaine albicans infection Surgical History History of carpal tunnel release History of pubovaginal sling Hx of eye surgery Hx of cystoscopy Hx of hysterectomy Hx of cholecystectomy History of esophagogastroduodenoscopy (EGD) Hx of colonoscopy Family History Father Diabetes Mother Heart problem Brother Diabetes Social History Housing: Apartment Are you a primary career coach to a significant other at home: No Do you presently have visiting nurse or other home services: No Alcohol intake: never Patient Tobacco Use Status: Never used Tobacco e-Cigarette/Vaping Use: Never Used Second Hand Smoke Exposure: No service: No Current occupational status: disabled Gender identity: Female Cognitive needs: Yes (Cane, walker) Hearing needs: No Vision needs: Yes (Glasses) Female Reproductive History Menstrual Age of Menarche: 10 Questionnaire PHQ-9 Over the last 2 weeks, how often have you been bothered by any of the following problems? 1. Little interest or pleasure in doing things: not at all 2. Feeling down, depressed, or hopeless: not at all 3. Trouble falling or staying asleep, or sleeping too much: not at all 4. Feeling tired or having little energy: not at all 5. Poor appetite or overeating: not at all 6. Feeling bad about yourself - or that you are a failure or have let yourself or your family down: not at all 7. Trouble concentrating on things, such as reading the newspaper or watching television: not at all 8. Moving or speaking so slowly that other people could have noticed. Or the opposite - being so fidgety or restless that you have been moving around a lot more than usual: not at all 9. Thoughts that you would be better off or of hurting yourself in some way: not at all Total score: 0 Depression Screening Interpretation: Negative Depression Screening Done: Yes Source: Developed by Drs. Neil Wayne, Lakisha Bell, Latrell Serra and colleagues, with an educational sophie from [employer]. Thrive Questionnaire Date Thrive assessed: 12/08/24 I am a: Patient What is your living situation today?: I have a steady place to live Within the past 12 months, did the food you bought not last and you didn't have the money to get more?: Never true Within the past 12 months, did you worry whether your food would run out before you got money to buy more?: Never true Do you have trouble paying for medicines?: No Do you have trouble getting transportation to medical appointments?: No Do you have trouble paying your heating and electricity bill?: No Do you have trouble taking care of your child, family member or friend?: No Do you have trouble with day-to-day activities such as bathing, preparing meals, shopping, managing finances, etc.?: No Are you currently unemployed and looking for a job?: No Are you interested in more education?: No Please select the resources that you would like help with: None Currently or been in a relationship where the following occur: No concerns reported THRIVE Score: 0 AUDIT C Alcohol Use Questionnaire (AUDIT-C) 1. How often do you have a drink containing alcohol?: Never Total Score: 0 REJI-7 AMB Questionnaire REJI-7 Date REJI - 7 assessed: 12/08/24 (patient on RX) Feeling nervous, anxious, or on edge: 0 = Not at all Not being able to stop or control worryin = Not at all Worrying too much about different things: 0 = Not at all Trouble relaxin = Not at all Being so restless that it is hard to sit still: 0 = Not at all Becoming easily annoyed or irritable: 0 = Not at all Feeling afraid as if something awful might happen: 0 = Not at all Total REJI-7 score (0-4 normal; 5-9 mild; 10-14 moderate; 15-21 severe): 0 Source: Developed by Lakisha Crain, Latrell Serra and colleagues, with an educational sophie from [employer]. Physical exam (Primary Care) Vital Signs: Last Vital Signs Temp 97.1 F 12/08/24 11:31 Pulse 89 12/08/24 11:31 BP 110/68 12/08/24 11:31 Pulse Ox 98 12/08/24 11:31 Oxygen Delivery Method Room Air 12/08/24 11:31 BMI result Body Mass Index 29.9 Tobacco/Smoking Status: Tobacco use Status Tobacco use date assessed 12/08/24 12/08/24 11:34 Patient Tobacco Use Status Never used Tobacco 12/08/24 11:28 e-Cigarette/Vaping Use Never Used 12/08/24 11:28 PHQ-9: PHQ-9 Score PHQ-9: Total score 0 12/08/24 11:34 Depression Screening Interpretation: Negative Thrive Assessment: Date of Thrive Assessment Date Thrive assessed 12/08/24 12/08/24 11:34 Currently or been in a relationship where the following occur: No concerns reported Results AMB Hemoglobin A1c AMB Hemoglobin A1c 7.0 % Last Edit by PETER Pham on 12/08/24 11:42 Results Reviewed Results Reviewed: Laboratory Last Values Hgb A1c (Clinic) 7.0 % (4.0-6.0) H 12/08/24 11:28 Coding Assessment & Plan Assessment & Plan Orders: Orders AMB Hemoglobin A1c Today E11.8 - Type 2 diabetes mellitus with unspecified 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s, Z96.41 - Presence of insulin pump (external) (internal)
[2024-12-08 11:31] VITALS: BP 110/68; PULSE 89; TEMP 36.2; O2SAT 98; BMI 29.9
--- OUTSIDE RECORDS SUMMARY | 2024-12-08 14:19 | XMS_ITS ---
Author Name Indra REYES MS. Chani Matos Address [address] [place] [address] Phone [phone] [facility] Care Team Providers Care Car Spotter Name Role Phone Lawanda Burrell Unavailable [phone] Unavailable Unavailable Unavailable VANITA MOLINA Unavailable [phone] TRIP GOETZ Unavailable [phone] MYAH ELDER Unavailable [phone] Elijah Hunter Unavailable [phone] DEVIN ESTRELLA Unavailable [phone] XOCHITL TAVAREZ Unavailable [phone] Leijajanuary Unavailable [phone] Neil Velazquez Unavailable [phone] Reason for Referral Not Available Allergies, adverse reactions, alerts Allergen Type Reaction Severity Status Onset Date Penicillin Allergy to substance (disorder) Hives Unknown Active N/A History of medication use Medication Class Instructions Start Date End Date Gabapentin 300 mg Cap TAKE 1 CAPSULE BY MOUTH 3 TIMES A DAY 2022-01-21 No Data Available Pantoprazole Sodium 40 mg Tab delayed rel TAKE 1 TABLET BY MOUTH TWICE A DAY 2021-11-22 No Data Available OMNIPOD DASH PODS (GEN 4) 5PK USE 2 EA SUBCUTANEOUSLY EVERY 3 DAYS FOR 30 DAYS 2 BOXES PF 10 PODS CHANGE EVERY 3 DAYS 2021-10-29 No Data Available Mirtazapine 30 mg Tab TAKE 1 TABLET BY M OUTH EVERY EVENING 1 HOUR BEFORE BEDTIME 2021-09-11 No Data Available Donepezil 10 mg Tab TAKE 1 TABLET BY KAITLYN TH EVERYDAY AT BEDTIME 2022-01-01 No Data Available Bisacodyl EC 5 mg Tab delayed rel TAKE 2 TABLETS BY MOUTH EVERY DAY AT BEDTIME 2021-11-28 No Data Available Levothyroxine Sodium 125 MCG Tab TAKE 1 TABLET BY MOUTH EVERY DAY IN THE MORNING 2022-02-27 No Data Available Metoclopramide 5 mg Tab TAKE 1 TABLET BY MOUTH 4 TIMES A DAY BEFORE MEALS AND AT BEDTIME 2022 No Data Available [facility] Gas Relief Ultra Strength 180 mg Cap TAKE 1 CAPSULE BY MOUTH 4 TIMES A DAY 2021-11-28 No Data Available Emgality 120 mg/ML Solution Auto-injector INJECT 1 ML SUBCUTANEOUSLY EVERY MONTH FOR 30 DAYS 2022-03-05 2024-01-30 [facility] Soluble Fiber Therapy 500 mg Tab TAKE 2 TABLETS BY MOUTH EVERY DAY NEEDED FOR CONSTIPATION 2021-12-19 No Data Available Insulin Lispro 100 UNIT/ML Solution INJECY 0-76 UNITS SUBCUTANEOUSLY ONCE DAILY 2022-02-05 2023-05-22 hydrOXYzine 25 mg Tab TAKE 1 TABLET 3 TI MES A DAY NEEDED ITCH 2022-02-25 No Data Available Aspirin Low Dose 81 mg Tab delayed rel TAKE 1 TABLET BY MOUTH EVERY DAY 2021-12-05 No Data Available MELATONIN 3 MG TABLET TAKE 3 TABLETS BY MOUTH 2 HOURS BEFORE SLEEP 2021-08-14 No Data Available Cephalexin 500 mg Cap TAKE 1 CAPSULE BY MOUTH THREE TIMES A DAY FOR 7 DAYS 2022-04-07 No Data Available Trulance 3 mg Tab TAKE 1 TABLET BY KAITLYN TH EVERY DAY 2022 No Data Available MAGNESIUM OXIDE 400 MG TABLET TAKE 1 TABLET ORALLY AT BEDTIME 2022 No Data Available Nystatin 500797 UNIT/GM Crm APPLY TO AFF ECTED AREA TOPICALLY 4 TIMES A DAY 2022-04-09 No Data Available PROBIOTIC ACIDOPHILUS 250 MILL 1 CAP ORALLY DAILY DO NOT CRUSH/CHEW/CUT SWALLOW WHOLE OR MAY OPEN AND SPRINKLE IN COLD DRINK/FOOD 2022-04-10 No Data Available Oxybutynin Chloride ER 10 mg Tab ER 24hr TAKE 1 TABLET BY MOUTH EVERY DAY 2021-07-30 No Data Available Diclofenac Sodium 50 mg Tab delayed rel TAKE 1 TABLET BY MOUTH TWICE A DAY FOR 7 DAYS 2022-04-18 No Data Available Doxycycline Hyclate 100 mg Tab TAKE 1 TABLET BY MOUTH TWICE A DAY FOR 10 DAYS 2022-04-17 No Data Available FLUoxetine 20 mg Cap TAKE 1 CAPSULE BY M OUTH TWICE A DAY 2022-04-18 No Data Available Rosuvastatin Calcium 40 mg Tab TAKE 1 TABLET BY MOUTH EVERY DAY 2022-04-18 No Data Available clonazePAM 0.5 mg Tab TAKE 1 & 1/2 TABLE T BY MOUTH AT BEDTIME 2022-04-30 No Data Available QUEtiapine Fumarate 25 mg Tab TAKE 1 TO 3 TABLETS BY MOUTH EVERY DAY AT BEDTIME 2022-01-01 No Data Available VITAMIN D3 5,000 UNIT SOFTGEL TAKE 1 CAPSULE BY MOUTH EVERY DAY 2022-04-17 No Data Available Lantus SoloStar 100 UNIT/ML Solution Pen-injector INJECT 33 UNITS SUBCUTANOUSLY ONCE DAILY 2022-06-21 2022-08-13 Fluticasone Propionate 50 MCG/ACT Suspension SPRAY 2 SPRAYS INTO EACH NOSTRIL NEEDED FOR CONGESTION DAILY 2022-07-17 No Data Available Trulicity 1.5 mg/0.5ML Solution Pen-injector INJECT 1 PEN 1.5 MG (0.5 ML) SUBCUTANEOUSLY EVERY WEEK 2022-08-02 No Data Available Dorzolamide HCl-Timolol Mal 22.3/6.8 mg/ML Solution INSTILL 1 DROP INTO BOTH EYES TWICE A DAY 2022-08-06 No Data Available Rhopressa 0.02 % Solution INSTILL 1 DROP INTO BOTH EYES IN THE EVENING 2022-08-06 2024-01-30 Aspirin EC 81 mg Tab delayed rel No Data Available 2022-08-13 No Data Available Clotrimazole 1 % Crm 1 application topic ally to affected area BID PRN 2022-08-13 No Data Available Lantus SoloStar 100 UNIT/ML Solution Pen-injector INJECT 33 UNITS (0.33 ML) SUBCUTANEOUSLY DAILY 2022-06-21 No Data Available Brimonidine Tartrate 0.2 % Solution INSTILL 1 DROP INTO LEFT EYE TWICE A DAY 2023-02-17 2024-01-30 Ketorolac Tromethamine 0.5 % Solution PLEASE SEE ATTACHED FOR DETAILED DIRECTIONS 2023-02-24 2024-01-30 BD UF MICRO PEN NEEDLE [id number] DIRECTED INJECTS 4 TIMES A DAY 2023-03-19 No Data Available Rocklatan 0.02-0.005 % Solution INSTILL 1 DROP INTO BOTH EYES AT BEDTIME 2023-04-17 2024-01-30 Azithromycin 250 mg Tab TAKE 2 TABLETS B Y MOUTH TODAY, THEN TAKE 1 TABLET DAILY FOR 4 DAYS 2023-05-12 No Data Available Sulfamethoxazole-Trimethopri m 800/160 mg Tab TAKE 1 TABLET ORALLY 2 TIMES A DAY FOR 7 DAYS 2023-05-20 No Data Available Ondansetron 4 mg Tab Disintegrating DISSOLVE 1 TABLET BY MOUTH EVERY 8 HOURS NEEDED FOR NAUSEA AND VOMITING FOR 15 DAYS 2023-07-18 No Data Available Ofloxacin 0.3 % Solution PLEASE SEE MEDARDO MILLER FOR DETAILED DIRECTIONS 2023-07-04 2024-01-30 prednisoLONE Acetate 1 % Suspension INSTILL 1 DROP IN LEFT EYE FOUR TIMES A DAY 1 WEEK PRIOR TO SURGERY, STOP WHEN DIRECTED BY PROVIDER 2023-07-04 2024-01-30 Moxifloxacin 0.5 % Solution INSTILL 1 DR OP INTO LEFT EYE 4 TIMES A DAY 2023-08-29 2024-01-30 Midodrine 10 mg Tab TAKE 1 TABLET ORALLY 3 TIMES A DAY DO NOT GIVE LAST DOSE OF DAY AFTER 6PM OR WITHIN 4 HRS OF BEDTIME 2023-08-05 No Data Available Vyzulta 0.024 % Solution INSTILL 1 DROP INTO LEFT EYE EVERY NIGHT 2023-10-09 No Data Available Myrbetriq 50 mg Tab ER 24hr TAKE 1 TABLE T BY MOUTH EVERY DAY 2023-06-09 No Data Available Sucralfate 1 GM Tab TAKE 1 TABLET BY KAITLYN TH THREE TIMES A DAY FOR 15 DAYS 2023-11-24 No Data Available Qulipta 30 mg Tab TAKE 1 TABLET EVERY DAY BY ORAL ROUTE FOR 30 DAYS, FOR MIGRAINE PREVENTION. 2023-12-17 No Data Available Mupirocin 2 % Oint APPLY TWICE A DAY TO SURGICAL SITE FOR 7-14 DAYS OR UNTIL FULLY HEALED 2024-01-21 No Data Available HumaLOG 100 UNIT/ML Solution Injection Continue using insulin in insulin pump 2024-01-30 No Data Available Problem List Problem Status Onset Date Resolved Date Migraines Active 2022-08-13 N/A Overactive bladder Active 2022-08-13 N/A H/O TIA (transient ischemic attack) and stroke Active 2024-01-30 N/A BMI 33.0-33.9,adult Active 2024-01-30 N/A Hypothyroidism Active 2024-01-06 N/A Dementia with behavioral dis turbanceMulti-system degeneration of the autonomic nervous system Active 2022-08-13 N/A Other problems related to [facility] facilities and other health care Active 2024-01-30 N/A 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 Active 2022-08-14 N/A Type 2 diabetes mellitus wit h hyperlipidemia, diabetic retinopathy without macular edema, diabetic polyneuropathy, long-term current use of insulin Active 2022-08-13 N/A Encounters Encounters Type Facility Date of Service Diagnosis/Co mplaint Pain Assessment - NO pain present (1126F) [facility] [place] Pain Assessment - NO pain present (1126F) [facility] [place] Pain Assessment - NO pain present (1126F) [facility] [place] Pain Assessment - NO pain present (1126F) [facility] [place] Pain Assessment - NO pain present (1126F) [facility] [place] Pain Assessment - NO pain present (1126F) [facility] [place] Pain Assessment - NO pain present (1126F) [facility] [place] Pain Assessment - NO pain present (1126F) [facility] [place] Pain Assessment - NO pain present (1126F) [facility] [place] Presence of insulin pump (external) (internal)Migraine, unspecified, not intractable, without status migrainosusType 2 diabetes mellitus with other specified 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Hyperlipidemia, unspecifiedUnspecified dementia without behavioral disturbanceOveractive bladderObesity, unspecifiedMajor depressive disorder, single episode, unspecifiedAnxiety disorder, unspecified Estab. patient 30-39min; chronic exacerbation, 2 stable chronic or 1 acute illness add add modifier 95 for video, (do not use for phone, instead use [id number]) [facility] [place]2023 Migraine, unspecified, not intractable, without status migrainosusType 2 diabetes mellitus with other specified 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Hyperlipidemia, unspecifiedUnspecified dementia without behavioral disturbanceMajor depressive disorder, recurrent, moderateOveractive bladderObesity, unspecifiedAnxiety disorder, unspecified Estab. patient 30-39min; chronic exacerbation, 2 stable chronic or 1 acute illness add add modifier 95 for video, (do not use for phone, instead use [id number]) [facility] Estab. patient 30-39min; chronic exacerbation, 2 stable chronic or 1 acute illness add add modifier 95 for video, (do not use for phone, instead use [id number]) [facility] Estab. patient 30-39min; chronic exacerbation, 2 stable chronic or 1 acute illness add add modifier 95 for video, (do not use for phone, instead use 02198-13) [facility] Estab. patient 30-39min; chronic exacerbation, 2 stable chronic or 1 acute illness add add modifier 95 for video, (do not use for phone, instead use 96927-35) [facility] Estab. patient 30-39min; chronic exacerbation, 2 stable chronic or 1 acute illness add add modifier 95 for video, (do not use for phone, instead use 11414-25) [facility] Estab. patient 30-39min; chronic exacerbation, 2 stable chronic or 1 acute illness add add modifier 95 for video, (do not use for phone, instead use 20134-15) [facility] Estab. patient 30-39min; chronic exacerbation, 2 stable chronic or 1 acute illness add add modifier 95 for video, (do not use for phone, instead use [id number]) [facility]20[place] Estab. patient 30-39min; chronic exacerbation, 2 stable chronic or 1 acute illness add add modifier 95 for video, (do not use for phone, instead use 15991-19) [facility]/20[place] Estab. patient 30-39min; chronic exacerbation, 2 stable chronic or 1 acute illness add add modifier 95 for video, (do not use for phone, instead use 05927-56) [facility] 05[place]/2023 Estab. patient 30-39min; chronic exacerbation, 2 stable chronic or 1 acute illness add add modifier 95 for video, (do not use for phone, instead use 07501-97) [facility], ([place]) 01/30/2024 Migraine, unspecified, not intractable, without status migrainosusType 2 diabetes mellitus with other specified 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Hyperlipidemia, unspecifiedType 2 diabetes w unsp diabetic rtnop w/o macular edemaType 2 diabetes mellitus with diabetic polyneuropathyLong term (current) use of insulinUnspecified dementia, unspecified severity, with other behavioral disturbanceMulti-system degeneration of the autonomic nervous systemOveractive bladderHypothyroidism, unspecifiedOther problems related to medical facilities and other health carePrsnl hx of TIA (TIA), and cereb infrc w/o resid deficitsAnxiety disorder, unspecifiedMajor depressive disorder, single episode, in partial remission Estab. patient 30-39min; chronic exacerbation, 2 stable chronic or 1 acute illness add add modifier 95 for video, (do not use for phone, instead use 97442-86) [facility] Estab. patient 30-39min; chronic exacerbation, 2 stable chronic or 1 acute illness add add modifier 95 for video, (do not use for phone, instead use 74266-31) [facility] Estab. patient 30-39min; chronic exacerbation, 2 stable chronic or 1 acute illness add add modifier 95 for video, (do not use for phone, instead use 50135-34) [facility] Estab. patient 30-39min; chronic exacerbation, 2 stable chronic or 1 acute illness add add modifier 95 for video, (do not use for phone, instead use 73246-69) [facility] Estab. patient 30-39min; chronic exacerbation, 2 stable chronic or 1 acute illness add add modifier 95 for video, (do not use for phone, instead use 72826-82) [facility] Estab. patient 30-39min; chronic exacerbation, 2 stable chronic or 1 acute illness add add modifier 95 for video, (do not use for phone, instead use 55665-12) [facility] Estab. patient 30-39min; chronic exacerbation, 2 stable chronic or 1 acute illness add add modifier 95 for video, (do not use for phone, instead use 32100-30) [facility] Estab. patient 30-39min; chronic exacerbation, 2 stable chronic or 1 acute illness add add modifier 95 for video, (do not use for phone, instead use 47418-34) [facility] Estab. patient 30-39min; chronic exacerbation, 2 stable chronic or 1 acute illness add add modifier 95 for video, (do not use for phone, instead use 23093-42) [facility] Vital Signs Date of Collection Vitals 2022-08-13 08:51:31 Height - 157.48 cmWe ight - 85.28 kgBody Mass Index (BMI) - 34.39 kg/m2BP Diastolic - 70.0 mm[Hg]BP Systolic - 130.0 mm[Hg] 2023-05-22 12:20:43 Height - 154.94 cmWe ight - 81.19 kgBody Mass Index (BMI) - 33.82 kg/m2BP Diastolic - 78.0 mm[Hg]BP Systolic - 142.0 mm[Hg] 2024-01-30 09:03:36 Height - 154.94 cmWe ight - 80.74 kgBody Mass Index (BMI) - 33.63 kg/m2BP Diastolic - 90.0 mm[Hg]BP Systolic - 125.0 mm[Hg] Social History Social History Social History Observation Description Effec tive Time Current Smoking Status Never smoker 2024-11-14 6 Sex Female Gender identity Woman History of Procedures Procedures Service Procedure code Service date Servicing provider Phone# Pain Assessment - NO pain present (1126F) 1126F 2022-08-13 No Data Available No Data A vailable Medication List Documented (1159F) 1159F 2022-08-13 No Data Available No Data April ilable Medication Review by prescribing provider or pharmacist documented (1160F) 1160F 2022-08-13 No Data Available No Data April ilable Functional Status Assessed (1170F) 1170F 2022-08-13 No Data Available No Data Avail able Advance Care Directive Advance care planning discussion documented in the medical record (1158F) 1158F 2022-08-13 No Data Available No Data Availa ble BMI obtained (3008F) 3008F 2022-08-13 No Data Availab le No Data Available SBP 130-139 (3075F) 3075F 2022-08-13 No Data Availabl e No Data Available DBP <80 (3078F) 3078F 2022-08-13 No Data Available No Data Available New patient,40-59min; chronic exacerbation, 2 stable chronic or 1 acute illness add add modifier 95 for video (do not use for phone, instead use [id number]) 65271 2022-08-13 No Data Available No Data Availa ble Estab. patient 30-39min; chronic exacerbation, 2 stable chronic or 1 acute illness add add modifier 95 for video, (do not use for phone, instead use 14933-64) 51668 2023-05-22 No Data Available No Data Availa ble Medication List Documented (1159F) 1159F 2023-05-22 No Data Available No Data April ilable Medication Review by prescribing provider or pharmacist documented (1160F) 1160F 2023-05-22 No Data Available No Data April ilable Functional Status Assessed (1170F) 1170F 2023-05-22 No Data Available No Data Avail able Pain Assessment - NO pain present (1126F) 1126F 2023-05-22 No Data Available No Data A vailable BMI obtained (3008F) 3008F 2023-05-22 No Data Availab le No Data Available Advance Care Directive Advance care planning discussion documented in the medical record (1158F) 1158F 2023-05-22 No Data Available No Data Availa ble Advance care planning discussed and documented ? advance care plan or surrogate decision-maker was documented in the medical record. (1123F) 1123F 2023-05-22 No Data Available No Data Availa ble SBP >= 140 3077F 2023-05-22 No Data Available No Data Available DBP <80 (3078F) 3078F 2023-05-22 No Data Available No Data Available Estab. patient 30-39min; chronic exacerbation, 2 stable chronic or 1 acute illness add add modifier 95 for video, (do not use for phone, instead use 71678-65) 25741 2024-01-30 No Data Available No Data Availa ble Medication List Documented (1159F) 1159F 2024-01-30 No Data Available No Data April ilable Medication Review by prescribing provider or pharmacist documented (1160F) 1160F 2024-01-30 No Data Available No Data April ilable Pain Assessment - NO pain present (1126F) 1126F 2024-01-30 No Data Available No Data A vailable BMI obtained (3008F) 3008F 2024-01-30 No Data Availab le No Data Available Advance Care Directive Advance care planning discussion documented in the medical record (1158F) 1158F 2024-01-30 No Data Available No Data Availa ble Advance care planning discussed and documented in the medical record ? beneficiary/patient did not wish to or was unable to provide an advance care plan or name a surrogate decision-maker. (1124F) 1124F 2024-01-30 No Data Available No Data Availa ble DBP >=90 3080F 2024-01-30 No Data Available No Data Available Functional Status Assessed (1170F) 1170F 2024-01-30 No Data Available No Data Avail able SBP < 130 (3074F) 3074F 2024-01-30 No Data Available No Data Available Functional Status Functional Category Effective Dates Uses Cane 2022-08-13 Shower Chair 2022-08-13 Daughter cooks and cleans 2022-08-13 ADLsDressing - Needs assista nceBathing - Needs assistanceToileting - Needs assistanceTransfers - Needs assistanceEating - IndependentiADLsShopping - Needs assistanceMedications - IndependentHousekeeping - Needs assistanceCooking - Needs assistanceFalls in last 6 months - No 2023-05-22 Mental Status Status Date AOx3 2024-01-30 Assessments Date of Service Assessments 2022-08-13 08:51:31 Diabetes mellitus ty pe 2, 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, on halfway insulin pumpMigrainesHyperlipidemia associated with type 2 diabetes mellitusDementiaOveractive bladderObesityMajor depression with anxiety 2023-05-22 12:20:43 MigrainesHyperlipide hiren associated with type 2 diabetes mellitusDementiaOveractive bladderObesityMajor depression, recurrent, moderate with anxiety 2024-01-30 09:03:36 Other problems relat ed to medical facilities and other health careMigrainesType 2 diabetes mellitus with hyperlipidemia, diabetic retinopathy without macular edema, diabetic polyneuropathy, long-term current use of insulinDementia with behavioral disturbanceMulti-system degeneration of the autonomic nervous systemOveractive bladderHypothyroidismH/O TIA (transient ischemic attack) and strokeBMI 33.0-33.9,adult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 Plan of Care Date of Service Plans 2022-08-13 08:51:31 Pain Assessment - NO pain documented (1126F)Medication Review by prescribing provider or pharmacist documented (1160F)Medication List Documented (1159F)Functional Status Assessed (1170F)Advance Care Directive Advance care planning discussion documented in the medical record (1158F)BMI obtained (3008F)SBP 130-139 (3075F)DBP <80 (3078F)Televideo new patient,40-59min; chronic exacerbation, 2 stable chronic or 1 acute illness add modifier 95Continue to see PCP. Follow-up with [facility] as needed for any acute or disease education needs that may arise.Has omnipod insulin [id number] 7.7% last monthBlood sugar varies, since adding Trulicity is not as highEndocrinology - Neil Kaur monthlyNeurology - Dr. MolinaRosuvastatin 40mg dailyDr. Nava AquillinoDonepezil 10mg dailyMirtazepine 30mg QHSQuetiapine 75 QHSNeurology - Vanita Champagnexybutynin dailyMyrbetriq dailyUrology - Dr. Trip Goetz, sees Myah Elder NP at same office at times.BMI 34.39Clonazepam 0.75mg DailyDaughter reports depression and anxiety is controlled well with medicationsJEAN-PIERRE BURGOS-CContinue seeing all providers as recommendedTake all medications as prescribedMonitor blood sugar and sugar intake in dietYou feel sick or illYou notice a change in behaviorYou have questions or concernsContinue monitoring sugar intake - following diabetic dietAllowing family/caregiver to assist with needs 2023-05-22 12:20:43 Medication Review by prescribing provider or pharmacist documented (1160F)Medication List Documented (1159F)Functional Status Assessed (1170F)Advance Care Directive Advance care planning discussion documented in the medical record (1158F)BMI obtained (3008F)Televideo 30-39min; chronic exacerbation, 2 stable chronic or 1 acute illness add modifier 95Advance care planning discussed and documented ? advance care plan or surrogate decision-maker was documented in the medical record. (1123F)Advance care planning discussed and documented in the medical record ? beneficiary/patient did not wish to or was unable to provide an advance care plan or name a surrogate decision-maker. (1124F)Pain Assessment - NO pain documented (1126F)Continue to see PCP. Follow-up with [facility] as needed for any acute or disease education needs that may arise.Emgality monthlyNeurology - Dr. Magallanes omnipod insulin [id number] 7.7% last monthBlood sugar varies, since adding Trulicity is not as highEndocrinology - Neil CooperRosuvastatin 40mg dailyDrRogerio DyerillinoDonepezil 10mg dailyMirtazepine 30mg QHSQuetiapine 75 QHSNeurology - Vanita CastrejonenOxybutynin dailyMyrbetriq dailyUrology - Dr. Trip Goetz, sees Myah Elder NP at same office at times.BMI 33.82Ed re losing weight, dietClonazepam 0.75mg DailyDaughter reports depression and anxiety is controlled well with medicationsby JANI DIAS PA-C 2024-01-30 09:03:36 Medication Review by prescribing provider or pharmacist documented (1160F)Medication List Documented (1159F)Functional Status Assessed (1170F)Advance Care Directive Advance care planning discussion documented in the medical record (1158F)BMI obtained (3008F)SBP < 130 (3074F)DBP >=90Televideo 30-39min; chronic exacerbation, 2 stable chronic or 1 acute illness add modifier 95Advance care planning discussed and documented in the medical record ? beneficiary/patient did not wish to or was unable to provide an advance care plan or name a surrogate decision-maker. (1124F)Pain Assessment - NO pain documented (1126F)Continue to see PCP. Follow-up with [facility] as needed for any acute or disease education needs that may arise.CONTINGENCY PLANDementia Member to call for the following symptoms: Confusion or change in behavior/ Increased anxiety/ Increased agitation/ Trouble sleeping at nightPlanned intervention: Place order for urinalysis and culture; family to take sample to lab/ Encourage increased fluid intake/ Quetiapine 50mg PO q12h PRN agitation/ Limit extra stimulationStableQuilipta, Emgality Monitor for symptoms of migraines, continue taking medications, and continue f/u care with Neurology - Dr. JohnsonRosuvastatin, Lantus, Humalog Has omnipod insulin [id number] 7.7% Monitor BG routinely, low carb diet, exercise as tolerable and continue with PCP and Endocrinology - Neil Nava AquillinoStableDonepezil, Mirtazepine, QuetiapineDenies safety concerns Monitor for safety, fall risk precautions, MMSE routinely, and continue f/u care with Neurology - Vanita JohnsonOxybutynin dailyMyrbetriq dailyContinue f/u with PCP and urology. Urology - Dr. Trip Goetz, sees Myah Elder NP at same office at times.StableLevothyroxineMonitor for hypothyroidism uncontrolled s/sx (eg. cold intolerance) and continue monitoring with PCP.StableAspirinMonitor for s/sx of TIA and continue f/u with PCP.StableDietary and lifestyle interventions to promote weight loss and achieve normal BMI.StableClonazepam, Fluoxetine, Hydroxyzine, Melatonin, Mirtazapine, QuetiapineDenies SI/HIDenies therapist. Daughter reports depression and anxiety is controlled well with medicationsContinue taking medication and monitor for worsening depression. Goals Date Goal 2022-08-13 Remember to 2022-08-13 Call me if 2022-08-13 Keep it up 2024-01-30 Remember to adhere t o dietary interventions and exercise as tolerable. 2024-01-30 Contact us if jose muñoz acute change in mental status, HHS, DKA s/sx or worsening depression or change in urine output. 2024-01-30 Continue taking medi cations as prescribed and f/u care and monitoring with PCP every 3-6 months. Health Concerns Date Concern 2024-01-30 Visit completed justyna del rio audio/video. Patient/Guardian agreed to visit via telehealth. Today, patient has chief complaint of: follow up care and comprehensive review.Reviewed Allergies, Medications, Active Medical conditions, past medical/surgical history, Social history. 2024-01-30 ACP: no. HCP: yes- Berny Omer - Medical Proxy. Full code. 2024-01-30 Most recent hospital stay(s) or ER visit(s) and precipitating factors: Denies in the last month. 2024-01-30 Informed verbal cons ent was obtained from this patient to communicate and provide care using virtual and other telecommunications tools. This patient has been explained the risks, if any, related to the encounter. I explained that care provided through video or audio communication cannot replace the need for physical examination or an in-person visit for some disorders or urgent problems.
== END 2024-12-08 12:19 | disposition home or self-care (01) ==
PROVIDERS: PCP Internal Medicine
DX: E11.8 Type 2 diabetes mellitus with unspecified 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s (principal); Z96.41 Presence of insulin pump (external) (internal)

== ENCOUNTER → 2024-12-08 11:23 | Outpatient (BNVA) | payer OTHER, SELFPAY | PROVIDERS: PCP Internal Medicine | DX: E11.42 Type 2 diabetes mellitus with diabetic polyneuropathy (principal); E11.3393 Type 2 diabetes mellitus with moderate nonproliferative diabetic retinopathy without macular edema, bilateral; M48.12 Ankylosing hyperostosis [Forestier], cervical region; K21.9 Gastro-esophageal reflux disease without esophagitis; K59.04 Chronic idiopathic constipation; G47.00 Insomnia, unspecified; G43.909 Migraine, unspecified, not intractable, without status migrainosus; E03.9 Hypothyroidism, unspecified; F33.9 Major depressive disorder, recurrent, unspecified; M47.816 Spondylosis without myelopathy or radiculopathy, lumbar region; E78.00 Pure hypercholesterolemia, unspecified; E66.9 Obesity, unspecified; I10 Essential (primary) hypertension; R42 Dizziness and giddiness; I95.1 Orthostatic hypotension; F03.90 Unspecified dementia, unspecified severity, without behavioral disturbance, psychotic disturbance, mood disturbance, and anxiety | CPT/HCPCS: 83036; 96127; 99212 ==

== ENCOUNTER 2024-12-15 11:29 | Outpatient (AMB) | payer OTHER, SELFPAY ==
--- NOTE | 2024-12-15 07:55 | A.OFFVIS_ITS ---
Vital Signs 12/15/24 11:31 Height 5 ft 1 in Weight 158 lb 11.725 oz BMI 30.0 BP 119/59 L Blood Pressure Location Rt brachial Position Sitting Pulse 96 Pulse Source Pulse Oximeter Pulse Oximetry (%) 96 Oxygen Delivery Method Room Air Intake Visit Reasons: T2DM Intake Note: Patient presents today for a follow-up on Type 2 Diabetes Mellitus: Last Diabetic eye exam was on: 08/2024 Last Podiatry exam was on: Patient does not see a Consulting Manager Most recent HbA1c: 7.0%, 12/08/2024 Random Glucose- 183 mg/dL, Today Internet Marketing Specialist Required: Yes Internet Marketing Specialist Language: [employer] Integrator Services: Internet Marketing Specialist Offered & Declined Internet Marketing Specialist Name: Daughter Accompanied by: Daughter Allergies francisco Allergy (Severe, Verified 12/15/24 11:33) Rash Penicillins Allergy (Intermediate, Verified 12/15/24 11:33) RASH/HIVES HPI Comments Details: Patient is 69 year old female with DM type 2 diagnosed 2002 who presents for management of diabetes. She was last seen 09/08/24. A1C 12/08/24:7 %. A1c end of June was 6.1 % Past medical history:DM2 GERD, depression, hypertension, hyperlipidemia, hypothyroidism. Micro and macrovascular 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s: + neuropathy, +background retinopathy, + nephropathy + microalbumin, no macrovascular disease. Has neuropathy Symptoms reported: occasional numbness, tingling, cramping in lower extremities daughter trims nails and checkd feet daily Has background retinopathy. Last eye examination: she will reschedule Needs eye lift surgery laser treatment to both eyes 2020 No nephropathy 08/26/2024 eGFR>60 06/2024 microalbumin 13.0 Macrovascular disease: h/o cva in the past, no known CAD Hypoglycemia: none recent carries sugar source Hyperglycemia: denies urinary frequency, nocturia, polydypsia Humalog via ominipod pump sensor not paired to insulin pump Also on Trulicity 1.5 mg q.week Exercise: limited due to balance issues Nutrition - diabetes education: currently sees [facility] Basal rate(s) (units/hour) : 12 AM to 10 AM 1.5 units / hr 10AM to 12 AM? 1.25 units / hr Bolus setting Insulin Carbohydrate Ratio (s) 12 AM 1:9 6AM 1:12 11:30 1:10 Correction Factor / Sensitivity Factor 12 AM?40 Active Insulin Time:? 4 hours Target(s): ?12 AM? to 12 PM? 120 mg/dL Correct above 120 mg/dL ON LICENSE OF [facility] Medical History Abdominal pain Simple ovarian cyst Diabetes type 2, uncontrolled Overactive bladder Diabetes mellitus Urge incontinence of urine Uninhibited neurogenic bladder Delayed gastric emptying Type 2 diabetes mellitus 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, with penitentiary current use of insulin pump Type 2 diabetes mellitus 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 Nausea and vomiting Sinusitis History of stroke Colon cancer screening Right ankle swelling Cellulitis of right lower leg Swelling of right lower extremity Left leg pain Left ankle sprain Ankle fracture, left Chronic pain syndrome Dementia 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 Diabetic neuropathy UTI (urinary tract infection) Insomnia Glaucoma Migraine Acquired hypothyroidism Hearing impairment CVA (cerebral vascular accident) Blind left eye Localized swelling, mass and lump, neck Urinary tract infection with pyuria Elevated LFTs Elevated liver enzymes Depression Anxiety Urinary incontinence in female Dementia Osteoarthritis Lumbar spondylosis Pure hypercholesterolemia Type 2 diabetes mellitus with diabetic polyneuropathy Pain of right thumb Allergic rhinitis Hypertension Obesity (BMI 30-39.9) Vitamin D deficiency Dyslipidemia Diabetic polyneuropathy associated with type 2 diabetes mellitus Diabetic 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 type 2 diabetes mellitus prison (current) use of insulin Right sided abdominal pain Dizziness and giddiness Orthostatic hypotension Charmaine albicans infection Surgical History History of carpal tunnel release History of pubovaginal sling Hx of eye surgery Hx of cystoscopy Hx of hysterectomy Hx of cholecystectomy History of esophagogastroduodenoscopy (EGD) Hx of colonoscopy Family History Father Diabetes Mother Heart problem Brother Diabetes Social History Housing: Apartment Are you a primary healthcare analyst to a significant other at home: No Do you presently have visiting nurse or other home services: No Alcohol intake: never Patient Tobacco Use Status: Never used Tobacco e-Cigarette/Vaping Use: Never Used Second Hand Smoke Exposure: No service: No Current occupational status: disabled Gender identity: Female Cognitive needs: Yes (Cane, walker) Hearing needs: No Vision needs: Yes (Glasses) Female Reproductive History Menstrual Age of Menarche: 10 Physical Exam Vital Signs: Last Vital Signs Pulse 96 12/15/24 11:31 BP 119/59 L 12/15/24 11:31 Pulse Ox 96 12/15/24 11:31 Oxygen Delivery Method Room Air 12/15/24 11:31 BMI result Body Mass Index 30.0 Const Other: Absence of Cushingoid features. Absence of acromegalic features. Neck exam reveals nl size thyroid about 15 gms. No thyroid nodules palpable. No carotid bruits present. Lungs CTA. Heart S1 S2, Reg R/R. No M/R G. Skin exam reveals absence of vitiligo or acanthosis nigricans. No edema Visual exam of foot performed. No ulcerations or open lesions. No inter digit maceration or fissuring. No onychomycosis, no callouses. Sensation intact to monofilament exam. Vibratory sensation is normal with 128 Hz tuning fork. 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 Daughter is work with [employer] and was not able to get a sensor functioning with the pump. She will see Nidia CARBAJAL back next available. I have sent a glucometer test strips and lancets so she will have a backup method in both she and her daughter aware that if she is not pair to a sensor she needs to manually enter her glucose with meals and for correction. The patient had an opportunity to ask questions regarding treatment plan. The patient expressed understanding and agreement with the above treatment plan. The patient is aware they should contact our office by phone for worsening glucose readings or for any low blood sugars which may warrant a change in diabetes medication. Compliance is encouraged with medications and any followup testing/consults which may have been ordered. Medications: New lancets (FreeStyle Lancets) 5 times a day prn sensor failure or to confirm glucose 100 ea 1RF blood-glucose meter (FreeStyle Lite Meter kit) As directed for use with freestyle test strips 1 ea 0RF Changed From blood sugar diagnostic (FreeStyle Lite Strips) 5 times a day 150 ea 6RF E11.65 - Type 2 diabetes mellitus with hyperglycemia To blood sugar diagnostic (FreeStyle Lite Strips) 5 times a day prn sensor failure 150 ea 6RF E11.65 - Type 2 diabetes mellitus with hyperglycemia Patient Instructions: Coding Level of Care Code Est Pt Level 3 (02229) Complex EM visit Add On G2211 Diagnoses 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
[2024-12-15 11:31] VITALS: BP 119/59; PULSE 96; O2SAT 96
[2024-12-15 11:43] LABS: Glucose, Whole Blood 183 mg/dL (60-115)
--- OUTSIDE RECORDS SUMMARY | 2024-12-15 13:57 | XMS_ITS ---
Author Name Indra REYES MS. Chani Matos Address [address] [place] [id number] Phone [phone] [facility] Care Team Providers Care Shuttle Preparation Supervisor Name Role Phone Lawanda Burrell Unavailable [phone] VANITA MOLINA Unavailable [phone] TRIP GOETZ Unavailable [phone] MYAH ELDER Unavailable [phone] Elijah Hunter Unavailable [phone] DEVIN ESTRELLA Unavailable [phone] XOCHITL TAVAREZ Unavailable [phone] January Unavailable [phone] Neil Velazquez Unavailable [phone] Reason for Referral Not Available Allergies, adverse reactions, alerts Allergen Type Reaction Severity Status Onset Date Penicillin Allergy to substance (disorder) Hives Unknown Active N/A History of medication use Medication Class Instructions Start Date End Date Gabapentin 300 mg Cap TAKE 1 CAPSULE BY MOUTH 2 TIMES A DAY 2022-01-21 No Data Available Pantoprazole Sodium 40 mg Tab delayed rel TAKE 1 TABLET BY MOUTH TWICE A DAY 2021-11-22 2024-12-13 OMNIPOD DASH PODS (GEN 4) 5PK USE [...] AT BEDTIME 2022 No Data Available Nystatin 427346 UNIT/GM Crm APPLY TO AFF ECTED AREA [...] ally to affected area BID PRN 2022-08-13 2024-12-13 Lantus SoloStar 100 UNIT/ML Solution Pen-injector INJECT 33 UNITS (0.33 ML) SUBCUTANEOUSLY DAILY 2022-06-21 No Data Available Brimonidine Tartrate 0.2 % Solution INSTILL 1 DROP INTO LEFT EYE TWICE A DAY 2023-02-17 2024-01-30 Ketorolac Tromethamine 0.5 % Solution PLEASE SEE ATTACHED FOR DETAILED DIRECTIONS 2023-02-24 2024-01-30 BD UF MICRO PEN NEEDLE [id number] DIRECTED INJECTS 4 TIMES A DAY 2023-03-19 [...] TIMES A DAY FOR 15 DAYS 2023-11-24 2024-12-13 Qulipta 30 mg Tab TAKE 1 TABLET EVERY DAY BY ORAL ROUTE FOR 30 DAYS, FOR MIGRAINE PREVENTION. 2023-12-17 No Data Available Mupirocin 2 % Oint APPLY TWICE A DAY TO SURGICAL SITE FOR 7-14 DAYS OR UNTIL FULLY HEALED 2024-01-21 No Data Available HumaLOG 100 UNIT/ML Solution Injection Continue using insulin in insulin pump 2024-01-30 No Data Available RABEprazole Sodium 20 mg Tab delayed rel 1 tablet orally 2 times per day 2024-12-13 No Data Available Simethicone 80 mg Tab Chewable 1 tablet orally 4 times per day after meals and at bedtime as needed 2024-12-13 No Data Available Problem List Problem Status Onset Date Resolved Date H/O TIA (transient ischemic attack) and stroke Active 2024-01-30 N/A Migraines Active 2022-08-13 N/A Dementia with behavioral dis turbanceMulti-system degeneration of the autonomic nervous system Active 2022-08-13 N/A Type 2 diabetes mellitus wit h hyperlipidemia, diabetic retinopathy without macular edema, diabetic polyneuropathy, long-term current use of insulin Active 2022-08-13 N/A Overactive bladder Active 2022-08-13 N/A 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 Active 2022-08-14 N/A Hypothyroidism Active 2024-01-06 N/A Other problems related to [facility] facilities and other health care Active 2024-12-13 N/A Encounters Encounters Type Facility Date of Service Diagnosis/Co mplaint Pain Assessment - NO pain present (1126F) [facility] [place] Pain Assessment - NO pain present (1126F) [facility] [place] Pain Assessment - NO pain present (1126F) [facility] [place] Pain Assessment - NO pain present (1126F) [facility] [place] Pain Assessment - NO pain present (1126F) [facility] [place] Pain Assessment - NO pain present (1126F) [facility] [place] Pain Assessment - NO pain present (1126F) [facility] [place] Pain Assessment - NO pain present (1126F) [facility] [place] Pain Assessment - NO pain present (1126F) [facility] [place] Presence of insulin pump (external) (internal)Migraine, unspecified, not intractable, without status migrainosusType 2 diabetes mellitus with other specified 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Hyperlipidemia, unspecifiedUnspecified dementia without behavioral disturbanceOveractive bladderObesity, unspecifiedMajor depressive disorder, single episode, unspecifiedAnxiety disorder, unspecified Estab. patient 30-39min; chronic exacerbation, 2 stable chronic or 1 acute illness add add modifier 95 for video, (do not use for phone, instead use 94157-95) [facility] [place]20[place] Migraine, unspecified, not intractable, without status migrainosusType 2 diabetes mellitus with other specified 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Hyperlipidemia, unspecifiedUnspecified dementia without behavioral disturbanceMajor depressive disorder, recurrent, moderateOveractive bladderObesity, unspecifiedAnxiety disorder, unspecified Estab. patient 30-39min; chronic exacerbation, 2 stable chronic or 1 acute illness add add modifier 95 for video, (do not use for phone, instead use 02795-67) [facility] [place] Estab. patient 30-39min; chronic exacerbation, 2 stable chronic or 1 acute illness add add modifier 95 for video, (do not use for phone, instead use 37471-92) [facility] [place] Estab. patient 30-39min; chronic exacerbation, 2 stable chronic or 1 acute illness add add modifier 95 for video, (do not use for phone, instead use 41596-55) [facility] [place] Estab. patient 30-39min; chronic exacerbation, 2 stable chronic or 1 acute illness add add modifier 95 for video, (do not use for phone, instead use 94029-26) [facility] [place] Estab. patient 30-39min; chronic exacerbation, 2 stable chronic or 1 acute illness add add modifier 95 for video, (do not use for phone, instead use 03173-19) [facility] [place] Estab. patient 30-39min; chronic exacerbation, 2 stable chronic or 1 acute illness add add modifier 95 for video, (do not use for phone, instead use 29181-92) [facility] [place] Estab. patient 30-39min; chronic exacerbation, 2 stable chronic or 1 acute illness add add modifier 95 for video, (do not use for phone, instead use 15721-81) [facility] [place]20[place] Estab. patient 30-39min; chronic exacerbation, 2 stable chronic or 1 acute illness add add modifier 95 for video, (do not use for phone, instead use 25322-81) [facility] [place]20[place] Estab. patient 30-39min; chronic exacerbation, 2 stable chronic or 1 acute illness add add modifier 95 for video, (do not use for phone, instead use 25926-45) [facility] [place] Estab. patient 30-39min; chronic exacerbation, 2 stable chronic or 1 acute illness add add modifier 95 for video, (do not use for phone, instead use 64963-04) [facility] [place] Migraine, unspecified, not intractable, without status [...] (do not use for phone, instead use 74460-30) [facility] [place] Estab. patient 30-39min; chronic exacerbation, 2 stable chronic or 1 acute illness add add modifier 95 for video, (do not use for phone, instead use 28913-03) [facility] [place] Estab. patient 30-39min; chronic exacerbation, 2 stable chronic or 1 acute illness add add modifier 95 for video, (do not use for phone, instead use 80165-43) [facility] [place] Estab. patient 30-39min; chronic exacerbation, 2 stable chronic or 1 acute illness add add modifier 95 for video, (do not use for phone, instead use 53154-02) [facility] [place] Estab. patient 30-39min; chronic exacerbation, 2 stable chronic or 1 acute illness add add modifier 95 for video, (do not use for phone, instead use 60036-88) [facility] [place] Estab. patient 30-39min; chronic exacerbation, 2 stable chronic or 1 acute illness add add modifier 95 for video, (do not use for phone, instead use 70619-84) [facility] [place] Estab. patient 30-39min; chronic exacerbation, 2 stable chronic or 1 acute illness add add modifier 95 for video, (do not use for phone, instead use 26268-59) [facility] [place] Estab. patient 30-39min; chronic exacerbation, 2 stable chronic or 1 acute illness add add modifier 95 for video, (do not use for phone, instead use 87873-31) [facility] [place] Estab. patient 30-39min; chronic exacerbation, 2 stable chronic or 1 acute illness add add modifier 95 for video, (do not use for phone, instead use 00218-47) [facility] [place] Estab. patient 20-29min; 1 stable chronic or 2 minor; add add modifier 95 for video, modifier 93 for phone [facility] [place]2024 Migraine, unspecified, not intractable, without status migrainosusType 2 diabetes mellitus with other specified 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Hyperlipidemia, unspecifiedType 2 diabetes w unsp diabetic rtnop w/o macular edemaType 2 diabetes mellitus with diabetic polyneuropathyUnspecified dementia, unspecified severity, with other behavioral disturbanceMulti-system degeneration of the autonomic nervous systemOveractive bladderAnxiety disorder, unspecifiedMajor depressive disorder, single episode, in partial remissionHypothyroidism, unspecifiedPrsnl hx of TIA (TIA), and cereb infrc w/o resid deficits Estab. patient 20-29min; 1 stable chronic or 2 minor; add add modifier 95 for video, modifier 93 for phone [facility] [place] Estab. patient 20-29min; 1 stable chronic or 2 minor; add add modifier 95 for video, modifier 93 for phone [facility] [place]/13/20[place] Estab. patient 20-29min; 1 stable chronic or 2 minor; add add modifier 95 for video, modifier 93 for phone [facility] [place]/13/20[place] Estab. patient 20-29min; 1 stable chronic or 2 minor; add add modifier 95 for video, modifier 93 for phone [facility] [place]/13/20[place] Estab. patient 20-29min; 1 stable chronic or 2 minor; add add modifier 95 for video, modifier 93 for phone [facility] [place]/13/2024 Estab. patient 20-29min; 1 stable chronic or 2 minor; add add modifier 95 for video, modifier 93 for phone [facility] [place] 12/13/2024 Vital Signs Date of Collection Vitals 2022-08-13 [...] - 90.0 mm[Hg]BP Systolic - 125.0 mm[Hg] 2024-12-13 10:33:34 Height - 154.94 cmWe ight - 71.67 kgBody Mass Index (BMI) - 29.85 kg/m2 Social History Social History Social History Observation Description Effec tive Time Current Smoking Status Never smoker 5 Sex Female Gender identity Woman History of [...] (do not use for phone, instead use 20901-00) 39115 2022-08-13 No Data Available No Data Availa ble Estab. patient 30-39min; chronic exacerbation, 2 stable chronic or 1 acute illness add add modifier 95 for video, (do not use for phone, instead use 29680-10) 31754 2023-05-22 No Data Available No Data Availa [...] (do not use for phone, instead use 52898-43) 45377 2024-01-30 No Data Available No Data Availa [...] 2024-01-30 No Data Available No Data Available Estab. patient 20-29min; 1 stable chronic or 2 minor; add add modifier 95 for video, modifier 93 for phone 24774 2024-12-13 No Data Available No Data Availa ble Medication List Documented (1159F) 1159F 2024-12-13 No Data Available No Data April ilable Medication Review by prescribing provider or pharmacist documented (1160F) 1160F 2024-12-13 No Data Available No Data April ilable Functional Status Assessed (1170F) 1170F 2024-12-13 No Data Available No Data Avail able Advance Care Directive Advance care planning discussion documented in the medical record (1158F) 1158F 2024-12-13 No Data Available No Data Availa ble Advance care planning discussed and documented ? advance care plan or surrogate decision-maker was documented in the medical record. (1123F) 1123F 2024-12-13 No Data Available No Data Availa ble Pain Assessment - Pain Documented on a Pain Scale (1125F) 1125F 2024-12-13 No Data Available No Data April ilable Functional Status Functional Category Effective Dates Uses Cane 2022-08-13 Shower Chair 2022-08-13 Daughter cooks and cleans 2022-08-13 ADLsDressing - Needs assista nceBathing - Needs assistanceToileting - Needs assistanceTransfers - Needs assistanceEating - IndependentiADLsShopping - Needs assistanceMedications - IndependentHousekeeping - Needs assistanceCooking - Needs assistanceFalls in last 6 months - No 2023-05-22 DME: caryn Crook 2024-12-13 Mental Status Status Date AOx3 2024-01-30 Assessments Date of Service Assessments 2022-08-13 08:51:31 Diabetes mellitus ty pe 2, 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, on correction insulin pumpMigrainesHyperlipidemia associated with type 2 diabetes [...] depressive disorder in partial remission and anxiety 2024-12-13 10:33:34 MigrainesType 2 diab etes mellitus with hyperlipidemia, diabetic retinopathy without macular edema, diabetic polyneuropathy, long-term current use of insulinDementia with behavioral disturbanceMulti-system degeneration of the autonomic nervous systemOveractive bladder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HypothyroidismH/O TIA (transient ischemic attack) and strokeOther problems related to medical facilities and other health care Plan of Care Date of Service Plans [...] modifier 95Continue to see PCP. [facility] or disease education needs that may arise.Has omnipod insulin ppoeS6D 7.7% last monthBlood sugar varies, since adding Trulicity is not as highEndocrinology - Neil Fanggalart monthlyNeurology - Dr. MolinaRosuvastatin 40mg dailyDrRogerio Nava AquillinoDonepezil 10mg dailyMirtazepine 30mg QHSQuetiapine 75 [...] arise.Emgality monthlyNeurology - Dr. Magallanes omnipod insulin rtrgX3X 7.7% last monthBlood sugar varies, since adding Trulicity is not as highEndocrinology - Neil VelazquezRosuvastatin 40mg dailyDrRogerio Nava AquillinoDonepezil 10mg dailyMirtazepine 30mg QHSQuetiapine 75 [...] continue f/u care with Neurology - Dr. Padilla, Lantus, Humalog Has omnipod insulin epuqC3G 7.7% Monitor BG routinely, low carb diet, exercise as tolerable and continue with PCP and Endocrinology - Neil KahnoStableDonepezil, Mirtazepine, QuetiapineDenies safety concerns Monitor for safety, [...] taking medication and monitor for worsening depression. 2024-12-13 10:33:34 Functional Status As sessed (1170F)Advance Care Directive Advance care planning discussion documented in the medical record (1158F)Advance care planning discussed and documented ? advance care plan or surrogate decision-maker was documented in the medical record. (1123F)Estab. patient 20-29min; 1 stable chronic or 2 minor; add add modifier 95 for video, modifier 93 for phoneMedication List Documented (1159F)Medication Review by prescribing provider or pharmacist documented (1160F)Pain Assessment - NO pain present (1126F)Continue to see PCP. [facility] or disease education needs that may arise.StableQuilipta, Emgality Monitor for symptoms of migraines, continue taking medications, and continue f/u care with Neurology - Dr. Molina12/13/24 : Continue current treatment plan as directed. Had a f/u with Neurology on 12/09/24.StableRosuvastatin, Lantus, Humalog Has omnipod insulin cuotO2B 7.7% Monitor BG routinely, low carb diet, exercise as tolerable and continue with PCP and Endocrinology - Neil Kahn12/13/24 : BG this a.m. 105. A1c last month- 5.7 % per daughter's report. Continue current treatment plan as directed. Had a f/u with PCP on 12/07/24.StableDonepezil, Mirtazepine, QuetiapineDenies safety concerns Monitor for safety, fall risk precautions, MMSE routinely, and continue f/u care with Neurology - Vanita Molina12/13/24 : Continue current treatment plan as directed. Had a f/u with Neurology on 12/09/24.StableOxybutynin dailyMyrbetriq dailyContinue f/u with PCP and urology. Urology - Dr. Trip Goetz, sees Myah Elder NP at same office at times. 12/13/24 : Continue current treatment plan as directed. Had a f/u with PCP on 12/07/24.StableClonazepam, Fluoxetine, Hydroxyzine, Melatonin, Mirtazapine, QuetiapineDenies SI/HIDenies therapist. Daughter reports depression and anxiety is controlled well with medicationsContinue taking medication and monitor for worsening depression. 12/13/24 : PHQ2- 2. Continue current treatment plan as directed. Had a f/u with PCP on 12/07/24.StableLevothyroxineMonitor for hypothyroidism uncontrolled s/sx (eg. cold intolerance) and continue monitoring with PCP.12/13/24 : Continue current treatment plan as directed. Had a f/u with PCP on 12/07/24.StableAspirinMonitor for s/sx of TIA and continue f/u with PCP.DIABETES CONTINGENCY PLANLast updated: 12/13/2024Member to call for the following symptoms: Blood sugar >300 / Delirium/ Polydipsia/ PolyuriaPlanned intervention: Increase long-acting insulin to 40-50 units/ Increase short-acting insulin per sliding scale-f BG 250-300- 8U, 300-350- 10u, 350-400- 12u, 400-450- 14u / Encourage adequate water intake/ Elevate legs/ Limit high-sugar and high-carbohydrate foods/ Go for a walk Goals Date Goal 2022-08-13 Remember to 2022-08-13 [...] and monitoring with PCP every 3-6 months. 2024-12-13 Continue taking medi cations as directed and keep all follow up appointments with established PCP and Specialist. Health Concerns Date Concern 2024-12-13 Visit completed usin g audio/video.Patient/Guardian agreed to visit via telehealth. Today, patient has chief complaint of: follow up care and comprehensive review.Reviewed Allergies, Medications, Active Medical conditions, past medical/surgical history, Social history. 2024-12-13 <[facility] Planning conversation using .Full Code 2024-12-13 Most recent hospital stay(s) or ER visit(s) and precipitating factors: Denies 2024-12-13 Open HEDIS Measure milad san: Reviewed
== END 2024-12-15 12:00 | disposition home or self-care (01) ==
PROVIDERS: PCP Internal Medicine; Visit Provider Nurse Practitioner Adult Health
DX: E11.8 Type 2 diabetes mellitus with unspecified 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s (principal); Z96.41 Presence of insulin pump (external) (internal)
CPT/HCPCS: 99213; G2211

== ENCOUNTER → 2024-12-15 11:29 | Outpatient (BNVA) | payer OTHER, SELFPAY | PROVIDERS: PCP Internal Medicine; Visit Provider Nurse Practitioner Adult Health | DX: E11.40 Type 2 diabetes mellitus with diabetic neuropathy, unspecified (principal); E11.319 Type 2 diabetes mellitus with unspecified diabetic retinopathy without macular edema; E11.21 Type 2 diabetes mellitus with diabetic nephropathy; E78.5 Hyperlipidemia, unspecified; E03.9 Hypothyroidism, unspecified; Z96.41 Presence of insulin pump (external) (internal); Z79.4 Long term (current) use of insulin | CPT/HCPCS: 82947; 99212 ==

== ENCOUNTER 2025-01-05 11:01 | Outpatient (AMB) | payer OTHER, SELFPAY ==
--- NOTE | 2025-01-05 12:23 | MHC.AMDMED ---
Intake Intake Visit Reasons: T1DM Packer Dried Beef Required: Yes Packer Dried Beef Language: Supervisor Slitting And Shipping Name: Daughter Mary Accompanied by: Daughter Allergies francisco Allergy (Severe, Verified 12/15/24 11:33) Rash Penicillins Allergy (Intermediate, Verified 12/15/24 11:33) RASH/HIVES HPI Comprehensive Diabetes Asmnt Most Recent Diabetes Results: No Data to Display [facility] Medical History Abdominal pain Simple ovarian cyst Diabetes type 2, uncontrolled Overactive bladder Diabetes mellitus Urge incontinence of urine Uninhibited neurogenic bladder Delayed gastric emptying Type 2 diabetes mellitus 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, with termite control servicer current use of insulin pump Type 2 diabetes mellitus 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 Nausea and vomiting Sinusitis History of stroke Colon cancer screening Right ankle swelling Cellulitis of right lower leg Swelling of right lower extremity Left leg pain Left ankle sprain Ankle fracture, left Chronic pain syndrome Dementia 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 Diabetic neuropathy UTI (urinary tract infection) Insomnia Glaucoma Migraine Acquired hypothyroidism Hearing impairment CVA (cerebral vascular accident) Blind left eye Localized swelling, mass and lump, neck Urinary tract infection with pyuria Elevated LFTs Elevated liver enzymes Depression Anxiety Urinary incontinence in female Dementia Osteoarthritis Lumbar spondylosis Pure hypercholesterolemia Type 2 diabetes mellitus with diabetic polyneuropathy Pain of right thumb Allergic rhinitis Hypertension Obesity (BMI 30-39.9) Vitamin D deficiency Dyslipidemia Diabetic polyneuropathy associated with type 2 diabetes mellitus Diabetic 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 type 2 diabetes mellitus [facility] (current) use of insulin Right sided abdominal pain Dizziness and giddiness Orthostatic hypotension Charmaine albicans infection Surgical History History of carpal tunnel release History of pubovaginal sling Hx of eye surgery Hx of cystoscopy Hx of hysterectomy Hx of cholecystectomy History of esophagogastroduodenoscopy (EGD) Hx of colonoscopy Family History Father Diabetes Mother Heart problem Brother Diabetes Social History Housing: Apartment Are you a primary child caregiver private home to a significant other at home: No Do you presently have visiting nurse or other home services: No Alcohol intake: never Patient Tobacco Use Status: Never used Tobacco e-Cigarette/Vaping Use: Never Used Second Hand Smoke Exposure: No service: No Current occupational status: disabled Gender identity: Female Cognitive needs: Yes (Cane, walker) Hearing needs: No Vision needs: Yes (Glasses) Female Reproductive History Menstrual Age of Menarche: 10 Assessment & Plan Assessment & Plan (1) Diabetic 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 type 2 diabetes mellitus: Code(s): E11.319 - Type 2 diabetes mellitus with unspecified diabetic retinopathy without macular edema Qualifiers: Diabetic retinopathy severity: with moderate nonproliferative retinopathy Diabetes mellitus macular edema: without macular edema Laterality: bilateral Qualified Code(s): E11.3393 - Type 2 diabetes mellitus with moderate nonproliferative diabetic retinopathy without macular edema, bilateral Plan: Patient presents for pump training for? Omnipod 5 with Dexcom G6 Patient's last A1c 6.1% on 07/05/24 The following topics were reviewed today: -effects of stress on glucose levels ??? High Alert: 280 mg/dl ??? Low Alert: 80 mg/dl CGM Values Patient above target 27% Patient at target 73% Patient below target 0% Patient's average glucose for the past 2 weeks 153 mg/dL Patient in auto mode 47% Manual Mode: 53% TDD: 23.7 units Patient's daughter Mary reports, she has not been able to connect Dexcom G6 to Omnipod 5 for approximately a month At time of visit Omnipod wall worker and and G6 baltazar had different transmitter ID numbers. Patient given sample G6 transmitter and sensor, we were not able to connect Omnipod wall worker to Dexcom G6 transmitter due to warm up period. If Omnipod does not connect to Dexcom after warmup is over instructed patient's daughter to call [facility] Tr[employer]hooting after starting new pod or inserting new insulin set: Occlusion, adhesive tape sensitivity, redness Check BG 2 hours after site change Safety information: Importance of a backup plan, for manual injections, proper prescriptions and emergency supplies ketone strips, and rules for testing for ketones Settings verified by time study technologist, no changes made to patient's insulin pump settings at today's visit Basal rate(s) (units/hour) : ?12 AM to 10 AM 1.5 units / hr 10AM to 12 AM? 1.25 units / hr Bolus setting Insulin Carbohydrate Ratio (s) 12 AM to 12 AM 1:9 6 PM to 12 AM 1:10 Correction Factor / Sensitivity Factor 12 AM? to 12 AM 1:40 Active Insulin Time:? 4 hours Target(s): ?12 AM? to 12 PM? 120 mg/dL Correct above 120 mg/dL. Patient Instructions: Pt will follow up with time study technologist in 2 weeks Coding Level of Care Code Est Pt Level 1 (99704) Diagnoses 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 edema associated with type 2 diabetes mellitus E11.3393 Diabetic retinopathy severity: with moderate nonproliferative retinopathy Diabetes mellitus macular edema: without macular edema Laterality: bilateral
== END 2025-01-05 12:26 | disposition home or self-care (01) ==
LOC: HO.ENCR 11:02
PROVIDERS: PCP Internal Medicine; Visit Provider Registered Nurse Diabetes Educator
DX: E11.3393 Type 2 diabetes mellitus with moderate nonproliferative diabetic retinopathy without macular edema, bilateral (principal)

== ENCOUNTER → 2025-01-05 11:01 | Outpatient (BNVA) | payer OTHER, SELFPAY | PROVIDERS: PCP Internal Medicine; Visit Provider Registered Nurse Diabetes Educator | DX: Z46.81 Encounter for fitting and adjustment of insulin pump (principal); E11.3393 Type 2 diabetes mellitus with moderate nonproliferative diabetic retinopathy without macular edema, bilateral; Z79.4 Long term (current) use of insulin | CPT/HCPCS: 99211 ==

== ENCOUNTER → 2025-01-17 12:45 | Outpatient (BNV) | payer OTHER, SELFPAY | PROVIDERS: PCP Internal Medicine; Visit Provider Internal Medicine | DX: Z12.31 Encounter for screening mammogram for malignant neoplasm of breast (principal) | CPT/HCPCS: 77063; 77067 ==

== ENCOUNTER 2025-01-17 12:51 | Outpatient (REF) | payer OTHER, SELFPAY ==
--- OUTSIDE RECORDS SUMMARY | 2025-01-17 15:11 | XMS_ITS ---
Author Name Worthington RELAY RECORD CLERK,PRODUCTION STAFF WORKER,FN P,PAID INTERN, Chasidy Address [address] [place] [id number] Phone [phone] [facility] Care Team Providers Care Mash Grinder Name Role Phone Chasidy Worthington Unavailable [phone] VANITA MOLINA Unavailable [phone] TRIP GOETZ Unavailable [phone] MYAH ELDER Unavailable [phone] Dale Elijah Unavailable [phone] DEVIN ESTRELLA Unavailable [phone] XOCHITL TAVAREZ Unavailable [phone] Leijajanuary Unavailable [phone] Neil Velazquez Unavailable [phone] Reason for Referral Not Available Allergies, adverse [...] AT BEDTIME 2022 No Data Available Nystatin 707289 UNIT/GM Crm APPLY TO AFF ECTED AREA [...] 2023-02-24 2024-01-30 BD UF MICRO PEN NEEDLE [id number] DIRECTED INJECTS 4 TIMES A DAY 2023-03-19 [...] Active 2024-01-06 N/A Other problems related to [facility] facilities and other health care Active 2024-12-13 N/A Encounters Encounters Type Facility Date of Service Diagnosis/Co mplaint Pain Assessment - NO pain present (1126F) [facility] [place] Pain Assessment - NO pain present (1126F) [facility] [place] Pain Assessment - NO pain present (1126F) [facility] [place] Pain Assessment - NO pain present (1126F) [facility] [place] Pain Assessment - NO pain present (1126F) [facility] [place] Pain Assessment - NO pain present (1126F) [facility] [place] Pain Assessment - NO pain present (1126F) [facility] [place] Pain Assessment - NO pain present (1126F) [facility] [place] Pain Assessment - NO pain present (1126F) [facility] [place]20[place] Presence of insulin pump (external) (internal)Migraine, unspecified, not intractable, without status migrainosusType 2 diabetes mellitus with other specified 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Hyperlipidemia, unspecifiedUnspecified dementia without behavioral disturbanceOveractive bladderObesity, unspecifiedMajor depressive disorder, single episode, unspecifiedAnxiety disorder, unspecified Estab. patient 30-39min; chronic exacerbation, 2 stable chronic or 1 acute illness add add modifier 95 for video, (do not use for phone, instead use 88876-32) [facility] [place]20[place] Migraine, unspecified, not intractable, without status migrainosusType 2 diabetes mellitus with other specified 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Hyperlipidemia, unspecifiedUnspecified dementia without behavioral disturbanceMajor depressive disorder, recurrent, moderateOveractive bladderObesity, unspecifiedAnxiety disorder, unspecified Estab. patient 30-39min; chronic exacerbation, 2 stable chronic or 1 acute illness add add modifier 95 for video, (do not use for phone, instead use 16330-77) [facility] [place] Estab. patient 30-39min; chronic exacerbation, 2 stable chronic or 1 acute illness add add modifier 95 for video, (do not use for phone, instead use 16091-75) [facility] [place] Estab. patient 30-39min; chronic exacerbation, 2 stable chronic or 1 acute illness add add modifier 95 for video, (do not use for phone, instead use 75494-44) [facility] [place] Estab. patient 30-39min; chronic exacerbation, 2 stable chronic or 1 acute illness add add modifier 95 for video, (do not use for phone, instead use 17936-44) [facility] [place] Estab. patient 30-39min; chronic exacerbation, 2 stable chronic or 1 acute illness add add modifier 95 for video, (do not use for phone, instead use 79742-74) [facility] [place] Estab. patient 30-39min; chronic exacerbation, 2 stable chronic or 1 acute illness add add modifier 95 for video, (do not use for phone, instead use 42774-95) [facility] [place] Estab. patient 30-39min; chronic exacerbation, 2 stable chronic or 1 acute illness add add modifier 95 for video, (do not use for phone, instead use 78470-58) [facility] [place]20[place] Estab. patient 30-39min; chronic exacerbation, 2 stable chronic or 1 acute illness add add modifier 95 for video, (do not use for phone, instead use 95537-34) [facility] [place]20[place] Estab. patient 30-39min; chronic exacerbation, 2 stable chronic or 1 acute illness add add modifier 95 for video, (do not use for phone, instead use 98541-29) [facility] [place] Estab. patient 30-39min; chronic exacerbation, 2 stable chronic or 1 acute illness add add modifier 95 for video, (do not use for phone, instead use 83886-33) [facility] [place]/2024 Migraine, unspecified, not intractable, without status [...] (do not use for phone, instead use 54273-44) [facility] [place] Estab. patient 30-39min; chronic exacerbation, 2 stable chronic or 1 acute illness add add modifier 95 for video, (do not use for phone, instead use 69935-95) [facility] [place] Estab. patient 30-39min; chronic exacerbation, 2 stable chronic or 1 acute illness add add modifier 95 for video, (do not use for phone, instead use 93161-43) [facility] [place] Estab. patient 30-39min; chronic exacerbation, 2 stable chronic or 1 acute illness add add modifier 95 for video, (do not use for phone, instead use 93332-66) [facility] [place]/20[place] Estab. patient 30-39min; chronic exacerbation, 2 stable chronic or 1 acute illness add add modifier 95 for video, (do not use for phone, instead use 09953-43) [facility] [place] Estab. patient 30-39min; chronic exacerbation, 2 stable chronic or 1 acute illness add add modifier 95 for video, (do not use for phone, instead use 18795-68) [facility] [place] Estab. patient 30-39min; chronic exacerbation, 2 stable chronic or 1 acute illness add add modifier 95 for video, (do not use for phone, instead use 09520-88) [facility] [place] Estab. patient 30-39min; chronic exacerbation, 2 stable chronic or 1 acute illness add add modifier 95 for video, (do not use for phone, instead use 33996-56) [facility] [place] Estab. patient 30-39min; chronic exacerbation, 2 stable chronic or 1 acute illness add add modifier 95 for video, (do not use for phone, instead use 00415-70) [facility] [place] Estab. patient 20-29min; 1 stable chronic or 2 minor; add add modifier 95 for video, modifier 93 for phone [facility] [place] 12/13/2024 Migraine, unspecified, not intractable, without status [...] TIA (TIA), and cereb infrc w/o resid deficitsOther problems related to medical facilities and other health care Estab. patient 20-29min; 1 stable chronic or 2 minor; add add modifier 95 for video, modifier 93 for phone [facility] [place]13/20[place] Estab. patient 20-29min; 1 stable chronic or 2 minor; add add modifier 95 for video, modifier 93 for phone [facility] [place] 12/13/2024 Estab. patient 20-29min; 1 stable chronic or 2 minor; add add modifier 95 for video, modifier 93 for phone [facility] [place] 12/13/2024 Estab. patient 20-29min; 1 stable chronic or 2 minor; add add modifier 95 for video, modifier 93 for phone [facility] [place] 12/13/2024 Estab. patient 20-29min; 1 stable chronic or 2 minor; add add modifier 95 for video, modifier 93 for phone [facility] [place] 12/13/2024 Estab. patient 20-29min; 1 stable chronic or 2 minor; add add modifier 95 for video, modifier 93 for phone [facility] [place] 12/13/2024 Vital Signs Date of Collection Vitals [...] tive Time Current Smoking Status Never smoker 7 Sex Female Gender identity Woman History of [...] (do not use for phone, instead use 33405-25) 16099 2022-08-13 No Data Available No Data Availa ble Estab. 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 Follow-up with Jarvis as needed for any acute or disease education needs that may arise.Has omnipod insulin becyQ2G 7.7% last monthBlood sugar varies, since adding [...] documented (1126F)Continue to see PCP. Follow-up with [facility] as needed for any acute or disease education needs that may arise.Emgality monthlyNeurology - Dr. Magallanes omnipod insulin [id number] 7.7% last monthBlood sugar varies, since adding Trulicity is not as highEndocrinology - Neil CooperRosuvastatin 40mg dailyDrRogerio Nava AquillinoDonepezil 10mg dailyMirtazepine 30mg [...] Dr. Padilla, Lantus, Humalog Has omnipod insulin [id number] 7.7% Monitor BG routinely, low carb diet, exercise as tolerable and continue with PCP and Endocrinology - Neil KahnoStableDonepezil, Mirtazepine, QuetiapineDenies safety concerns Monitor for safety, fall risk precautions, MMSE routinely, and continue f/u care with Neurology - Vanita WigginstableOxybutynin dailyMyrbetriq dailyContinue f/u with PCP and urology. [...] present (1126F)Continue to see PCP. Follow-up with [facility] as needed for any acute or disease education needs that may arise.StableQuilipta, Emgality Monitor for symptoms of migraines, continue taking medications, and continue f/u care with Neurology - Dr. Molina12/13/24 : Continue current treatment plan as directed. Had a f/u with Neurology on 12/09/24.StableRosuvastatin, Lantus, Humalog Has omnipod insulin [id number] 7.7% Monitor BG routinely, low carb diet, [...] exercise as tolerable. 2024-01-30 Contact us if develo ping acute change in mental status, HHS, DKA [...] history, Social history. 2024-12-13 <add details of Adva ale Care Planning conversation using .Full Code 2024-12-13 Most recent hospital stay(s) or ER visit(s) and precipitating factors: Denies 2024-12-13 Open HEDIS Measure milad san: Reviewed
== END 2025-01-17 12:52 | disposition home or self-care (01) ==
LOC: HO.MAMMO 12:51
PROVIDERS: PCP Internal Medicine; Visit Provider Internal Medicine
DX: Z12.31 Encounter for screening mammogram for malignant neoplasm of breast (principal)
CPT/HCPCS: 77063; 77067

== ENCOUNTER 2025-01-24 13:28 | Outpatient (AMB) | payer OTHER, SELFPAY ==
--- NOTE | 2025-01-24 13:31 | A.OFFPC_ITS ---
Vital Signs 01/24/25 13:32 Height 5 ft 1 in Weight 154 lb BMI 29.1 BP 110/68 Blood Pressure Location Lt brachial Position Sitting Pulse 92 Pulse Source Pulse Oximeter Pulse Oximetry (%) 95 Oxygen Delivery Method Room Air Intake Visit Reasons: Discuss guardianship paperwork Release Specialist Required: No Accompanied by: Self / Same As Patient Allergies francisco Allergy (Severe, Verified 01/31/25 03:22) Rash Penicillins Allergy (Intermediate, Verified 01/31/25 03:22) RASH/HIVES Medication List - Last Reconciled 01/24/25 by Elijah Hunter MD [DDisposable Underwear Heavy Absorbency Large (2) - Personal As directed] [Disposable Underpad 30 x 30 Heavy Flow As directed] [ADULT DIAPERS/BRIEFS As directed] aspirin 81 mg PO DAILY atogepant (Qulipta) 30 mg PO DAILY betamethasone dipropionate 0.05% 1 appl topical DAILY bisacodyl (Laxative (bisacodyl)) 10 mg (2 x 5 mg) PO BEDTIME blood sugar diagnostic (OneTouch Ultra Test strips) 4 times daily for sensor failure or to confirm sensor reading blood-glucose meter dispense as one touch ultra to go with one touch ultra strips blood-glucose sensor (Dexcom G7 Sensor device) As directed blood-glucose sensor (Dexcom G6 Sensor device) As directed every 10 days blood-glucose transmitter (Dexcom G6 Transmitter device) As directed blood-glucose transmitter (Dexcom G6 Transmitter device) As directed blood-glucose,muffler mechanic,cont (Dexcom G7 Letter Stamping Machine Operator) As directed cholecalciferol (vitamin D3) 125 mcg PO DAILY clonazepam 1 mg PO BEDTIME compr.stocking,knee,long,large As directed diaper,brief,adult,disposable (Overnight Underwear Large) As directed PULL UPS donepezil 5 mg PO DAILY dorzolamide-timolol (PF) 2-0.5 % 1 drp ophthalmic (eye) BID dulaglutide (Trulicity) 0.75 mg (0.5 mL) subcut QWEEK fluoxetine 20 mg PO BID fluticasone propionate 50 mcg/actuation 2 sprays intranasal DAILY PRN gabapentin 300 mg PO TID 30 days hydroxyzine HCl 25 mg PO TID PRN insulin glargine (Lantus Solostar U-100 Insulin) 9 units (0.09 mL) subcut QPM PRN insulin lispro (Humalog U-100 Insulin) 0 - 76 units (0 - 0.76 mL) subcut DAILY insulin pump cart,auto,BT-cntr (Omnipod 5 G6 Intro Kit (Gen 5) subcutaneous cartridge with controller) As directed insulin pump cart,automated,BT (Omnipod 5 G6 Pods (Gen 5) subcutaneous cartridge) change every 3 days insulin pump cart,cont inf,BT (Omnipod Dash Pods (Gen 4) subcutaneous cartridge) As directed lancets as directed qid to go with one touch ultra stips latanoprostene bunod 0.024% (Vyzulta) 1 drp ophthalmic (eye) BEDTIME levothyroxine 125 mcg PO QAM magnesium oxide 400 mg PO BEDTIME melatonin 6 mg PO BEDTIME PRN methylcellulose (laxative) (Fiber Therapy (methylcellulose)) 1,000 mg (2 x 500 mg) PO DAILY PRN midodrine 10 mg PO TID mirabegron ER (Myrbetriq) 50 mg PO DAILY mirtazapine 30 mg PO QPM miscellaneous medical supply Wipes miscellaneous; 100 wipebox/ 3 boxes mupirocin 2% 1 appl topical BID pen needle, diabetic (Comfort EZ Pen [place]) As directed injects 4 times a day [Personal Cleansing Wipes (2) As directed] plecanatide (Trulance) 3 mg PO DAILY quetiapine 75 mg PO BEDTIME rabeprazole 20 mg PO BID rosuvastatin 40 mg PO DAILY scopolamine base 1 patch transdermal Q3D PRN simethicone (Anti-Gas Ultra Strength) 180 mg PO QID [UNDERPADS As directed] Tobacco use date assessed: 01/24/25 Fall risk assessment: No Falls in past year Last assessed Fall Risk: 01/24/25 Dental Screening Dental Screen Date: 01/24/25 (dentures ) Did you have a dental visit in the last 12 months?: No Did you have a dental problem in the last 6 months where you did not have access to dental care?: No Was dental information given to patient?: No HPI Discuss guardianship paperwork HPI Details Patient comes in today, accompanied by his stepdaughter Mary, to fill out some paperworks for guardianship Her stepdaughter states that they are currently still in some family dispute when the patient's actual children, who live in another state, are accusing Mary of not taking care of patient adequately and are trying to gain complete custody of the patient Her stepdaughter states that once this happens, patient's children are planning to put her into a jail, similar to what happened with her , and Mary states that she knows this is not what the patient wants She is therefore trying to while some papers to request for guardianship of the patient although she is unclear if this is going to be of help or not Patient currently does not have any acute issues and her next follow-up appointment is scheduled with me on 02/28/2025 [facility] Medical History Abdominal pain Simple ovarian cyst Diabetes type 2, uncontrolled Overactive bladder Diabetes mellitus Urge incontinence of urine Uninhibited neurogenic bladder Delayed gastric emptying Type 2 diabetes mellitus 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, with watermelon inspector current use of insu georgina pump Type 2 diabetes mellitus 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 Nausea and vomiting Sinusitis History of stroke Colon cancer screening Right ankle swelling Cellulitis of right lower leg Swelling of right lower extremity Left leg pain Left ankle sprain Ankle fracture, left Chronic pain syndrome Dementia 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 Diabetic neuropathy UTI (urinary tract infection) Insomnia Glaucoma Migraine Acquired hypothyroidism Hearing impairment CVA (cerebral vascular accident) Blind left eye Localized swelling, mass and lump, neck Urinary tract infection with pyuria Elevated LFTs Elevated liver enzymes Depression Anxiety Urinary incontinence in female Dementia Osteoarthritis Lumbar spondylosis Pure hypercholesterolemia Type 2 diabetes mellitus with diabetic polyneuropathy Pain of right thumb Allergic rhinitis Hypertension Obesity (BMI 30-39.9) Vitamin D deficiency Dyslipidemia Diabetic polyneuropathy associated with type 2 diabetes mellitus Diabetic 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 type 2 diabetes mellitus 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 Right sided abdominal pain Dizziness and giddiness Orthostatic hypotension Charmaine albicans infection Surgical History History of carpal tunnel release History of pubovaginal sling Hx of eye surgery Hx of cystoscopy Hx of hysterectomy Hx of cholecystectomy History of esophagogastroduodenoscopy (EGD) Hx of colonoscopy Family History Father Diabetes Mother Heart problem Brother Diabetes Social History Housing: Apartment Are you a primary intensive care nurse to a significant other at home: No Do you presently have visiting nurse or other home services: No Alcohol intake: never Patient Tobacco Use Status: Never used Tobacco e-Cigarette/Vaping Use: Never Used Second Hand Smoke Exposure: No service: No Current occupational status: disabled Gender identity: Female Cognitive needs: Yes (Cane, walker) Hearing needs: No Vision needs: Yes (Glasses) Female Reproductive History Menstrual Age of Menarche: 10 Questionnaire PHQ-9 Over the last 2 weeks, how often have you been bothered by any of the following problems? 1. Little interest or pleasure in doing things: not at all 2. Feeling down, depressed, or hopeless: not at all 3. Trouble falling or staying asleep, or sleeping too much: not at all 4. Feeling tired or having little energy: not at all 5. Poor appetite or overeating: not at all 6. Feeling bad about yourself - or that you are a failure or have let yourself or your family down: not at all 7. Trouble concentrating on things, such as reading the newspaper or watching television: not at all 8. Moving or speaking so slowly that other people could have noticed. Or the opposite - being so fidgety or restless that you have been moving around a lot more than usual: not at all 9. Thoughts that you would be better off or of hurting yourself in some way: not at all Total score: 0 Depression Screening Interpretation: Negative Depression Screening Done: Yes 92517 - PHQ-9 Billing: Yes Source: Developed by Drs. Neil Wayne, Lakisha Bell, Latrell Serra and colleagues, with an educational sophie from [employer] Thrive Questionnaire Date Thrive assessed: 01/24/25 I am a: Patient What is your living situation today?: I have a steady place to live Within the past 12 months, did the food you bought not last and you didn't have the money to get more?: Never true Within the past 12 months, did you worry whether your food would run out before you got money to buy more?: Never true Do you have trouble paying for medicines?: No Do you have trouble getting transportation to medical appointments?: No Do you have trouble paying your heating and electricity bill?: No Do you have trouble taking care of your child, family member or friend?: No Do you have trouble with day-to-day activities such as bathing, preparing meals, shopping, managing finances, etc.?: No Are you currently unemployed and looking for a job?: No Are you interested in more education?: No Please select the resources that you would like help with: None Currently or been in a relationship where the following occur: No concerns reported THRIVE Score: 0 AUDIT C Alcohol Use Questionnaire (AUDIT-C) 1. How often do you have a drink containing alcohol?: Never 3. How often do you have six or more drinks on one occasion?: Never Total Score: 0 Score Reviewed/Action Taken: Yes REJI-7 AMB Questionnaire REJI-7 Date REJI - 7 assessed: 01/24/25 (patient on RX) Feeling nervous, anxious, or on edge: 0 = Not at all Not being able to stop or control worryin = Not at all Worrying too much about different things: 0 = Not at all Trouble relaxin = Not at all Being so restless that it is hard to sit still: 0 = Not at all Becoming easily annoyed or irritable: 0 = Not at all Feeling afraid as if something awful might happen: 0 = Not at all Total REJI-7 score (0-4 normal; 5-9 mild; 10-14 moderate; 15-21 severe): 0 Source: Developed by Drs. Neil Wayen, Lakisha Bell, Latrell Serra and colleagues, with an educational sophie from [employer] REJI-7 Assessment Billing REJI-7 Assessment Tool: REJI-7 Assessment 55985 Review of Systems Const Details: ROS is obtained primarily through patient's daughter due to patient's dementia as well as limitations due to language barrier Denies chills, Reports fatigue, Denies fever(s) and Denies headache(s) (controlled on current Rx) ENT Denies dysphagia, Denies dizziness, Denies otalgia, Denies headache(s) (controlled on current Rx), Reports neck pain (chronic), Denies odynophagia and Denies sore throat Card Denies chest pain, Denies palpitations and Reports dyspnea on exertion (mild) Resp Denies chest congestion, Denies cough, Reports dyspnea on exertion (mild) and Denies wheezing GI Denies abdominal pain, Reports constipation (chronic - currently controlled on Rx), Denies dysphagia, Denies heartburn, Denies diarrhea, Denies nausea, Denies odynophagia and Denies vomiting Denies hematuria, Denies difficulty voiding, Reports nocturia, Denies dysuria and Reports urinary incontinence Musc Reports back pain, Reports arthralgias (increased lately, especially in her knees - pain feels worse in AM) and Reports neck pain (chronic) Skin/Breast Denies rash Neuro Denies behavioral changes, Denies dizziness, Denies headache(s) (controlled on current Rx), Reports memory loss and Denies tremor(s) Psych Denies behavioral changes, Reports memory loss and Denies mood swings Endo Reports fatigue and Denies palpitations Ethan/Lymph Denies easy bruising Aller/Immun Denies wheezing Physical exam (Primary Care) Vital Signs: Last Vital Signs Pulse 92 01/24/25 13:32 BP 110/68 01/24/25 13:32 Pulse Ox 95 01/24/25 13:32 Oxygen Delivery Method Room Air 01/24/25 13:32 BMI result Body Mass Index 29.1 Tobacco/Smoking Status: Tobacco use Status Tobacco use date assessed 01/24/25 01/24/25 13:37 Patient Tobacco Use Status Never used Tobacco 01/24/25 13:37 e-Cigarette/Vaping Use Never Used 01/24/25 13:37 PHQ-9: PHQ-9 Score PHQ-9: Total score 0 01/24/25 14:01 Depression Screening Interpretation: Negative Thrive Assessment: Date of Thrive Assessment Date Thrive assessed 01/24/25 01/24/25 13:37 Currently or been in a relationship where the following occur: No concerns reported Const General: no acute distress and alert Neck Neck: Yes no lymphadenopathy and Yes supple Thyroid: Thyroid normal Resp Auscultation: clear to auscultation bilaterally, no rales and no wheezes Cardio Rate: regular rate Rhythm: regular rhythm Heart sounds: no murmurs GI Palpation (GI): Soft to palpation and nontender Auscultation: normal bowel sounds General: Yes no CVA tenderness Back/Spine/Pelvis Back: no CVA tenderness Cervical Spine: Cervical spine tenderness Thoracic/Lumbar Spine: lumbar spinal tenderness Skin Rashes: no rashes Extrem General: Yes no clubbing, cyanosis or edema Right lower extremity: knee Details: tenderness; no swelling Left lower extremity: knee Details: tenderness; no swelling Coding Level of Care Code Est Pt Level 3 (41886) Diagnoses Custody issue Z65.3 Additional Codes REJI-7 Assessment Billing - REJI-7 Assessment Tool: REJI-7 Assessment 87798 ([id number]) PHQ-9 - 21303 - PHQ-9 Billing: Yes ([id number]) Assessment & Plan Assessment & Plan (1) Custody issue: Code(s): Z65.3 - Problems related to other legal circumstances Category: Social Hx Plan: Patient's visit today is primarily to have her papers for guardianship filled out as her stepdaughter is currently trying to file for guardianship and custody of the patient - see HPI for further details While going over the questions on the guardianship paper, there were questions about patient's mental capacity I have discussed with patient's stepdaughter that in properly filling the papers out, we have to declare the patient is mentally and cognitively incapacitated for her to be able to go through with filing for guardianship but have explained to patient that this may pose additional difficulties for her in her current custody yanez as the information here would be counterproductive to what she is trying to do Have advised patient's stepdaughter to seek legal services professional first regarding this a nd to get some advice on how best to proceed in this case Have advised her that if she wishes to have the papers filled out completely, she can just dropped him off at the office at any time Plan To return as scheduled next month for her annual physical examination
[2025-01-24 13:32] VITALS: BP 110/68; PULSE 92; O2SAT 95; BMI 29.1
--- OUTSIDE RECORDS SUMMARY | 2025-01-24 15:28 | XMS_ITS ---
Author Name Worthington SENIOR RESEARCH FELLOW,TRENCHER DRIVER,FN P,PIPELINES LABORER, Chasidy Address [address] [place] [id number] Phone [phone] [facility] [employer] [facility] Care Team Providers Care Financial Investment Manager Name Role Phone Chasidy Worthington Unavailable [phone] VANITA MOLINA Unavailable [phone] TRIP GOETZ Unavailable [phone] MYAH ELDER Unavailable [phone] Dale Elijah Unavailable [phone] DEVIN ESTRELLA Unavailable [phone] XOCHITL TAVAREZ Unavailable [phone] Leijajanuary Unavailable [phone] Neil Velazquez Unavailable [phone] Reason for Referral Not Available Allergies, adverse [...] AT BEDTIME 2022 No Data Available Nystatin 137958 UNIT/GM Crm APPLY TO AFF ECTED AREA [...] 2023-02-24 2024-01-30 BD UF MICRO PEN NEEDLE [id number] DIRECTED INJECTS 4 TIMES A DAY 2023-03-19 [...] Active 2024-01-06 N/A Other problems related to [facility] facilities and other health care Active 2024-12-13 N/A Encounters Encounters Type Facility Date of Service Diagnosis/Co mplaint Pain Assessment - NO pain present (1126F) [facility] [place] Pain Assessment - NO pain present (1126F) [facility] [place] Pain Assessment - NO pain present (1126F) [facility] [place] Pain Assessment - NO pain present (1126F) [facility] [place] Pain Assessment - NO pain present (1126F) [facility] [place] Pain Assessment - NO pain present (1126F) [facility] [place] Pain Assessment - NO pain present (1126F) [facility] [place] Pain Assessment - NO pain present (1126F) [facility] [place] Pain Assessment - NO pain present (1126F) [facility] [place] Presence of insulin pump (external) (internal)Migraine, unspecified, not intractable, without status migrainosusType 2 diabetes mellitus with other specified 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Hyperlipidemia, unspecifiedUnspecified dementia without behavioral disturbanceOveractive bladderObesity, unspecifiedMajor depressive disorder, single episode, unspecifiedAnxiety disorder, unspecified Estab. patient 30-39min; chronic exacerbation, 2 stable chronic or 1 acute illness add add modifier 95 for video, (do not use for phone, instead use 32536-86) [facility] [place] Migraine, unspecified, not intractable, without status migrainosusType 2 diabetes mellitus with other specified 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Hyperlipidemia, unspecifiedUnspecified dementia without behavioral disturbanceMajor depressive disorder, recurrent, moderateOveractive bladderObesity, unspecifiedAnxiety disorder, unspecified Estab. patient 30-39min; chronic exacerbation, 2 stable chronic or 1 acute illness add add modifier 95 for video, (do not use for phone, instead use 75182-98) [facility] [place] Estab. patient 30-39min; chronic exacerbation, 2 stable chronic or 1 acute illness add add modifier 95 for video, (do not use for phone, instead use 04101-56) [facility] [place] Estab. patient 30-39min; chronic exacerbation, 2 stable chronic or 1 acute illness add add modifier 95 for video, (do not use for phone, instead use 03914-99) [facility] [place] Estab. patient 30-39min; chronic exacerbation, 2 stable chronic or 1 acute illness add add modifier 95 for video, (do not use for phone, instead use 09379-03) [facility] [place] Estab. patient 30-39min; chronic exacerbation, 2 stable chronic or 1 acute illness add add modifier 95 for video, (do not use for phone, instead use 37478-56) [facility] [place] Estab. patient 30-39min; chronic exacerbation, 2 stable chronic or 1 acute illness add add modifier 95 for video, (do not use for phone, instead use 85345-06) [facility] [place] Estab. patient 30-39min; chronic exacerbation, 2 stable chronic or 1 acute illness add add modifier 95 for video, (do not use for phone, instead use 90531-04) [facility] [place] Estab. patient 30-39min; chronic exacerbation, 2 stable chronic or 1 acute illness add add modifier 95 for video, (do not use for phone, instead use 78930-34) [facility] [place] Estab. patient 30-39min; chronic exacerbation, 2 stable chronic or 1 acute illness add add modifier 95 for video, (do not use for phone, instead use 19196-85) [facility] [place] Estab. patient 30-39min; chronic exacerbation, 2 stable chronic or 1 acute illness add add modifier 95 for video, (do not use for phone, instead use 12623-80) [facility] [place] Migraine, unspecified, not intractable, without [...] (do not use for phone, instead use 79410-71) [facility] [place] Estab. patient 30-39min; chronic exacerbation, 2 stable chronic or 1 acute illness add add modifier 95 for video, (do not use for phone, instead use 75428-29) [facility] [place] Estab. patient 30-39min; chronic exacerbation, 2 stable chronic or 1 acute illness add add modifier 95 for video, (do not use for phone, instead use 52089-14) [facility] [place] Estab. patient 30-39min; chronic exacerbation, 2 stable chronic or 1 acute illness add add modifier 95 for video, (do not use for phone, instead use 34828-48) [facility] [place] Estab. patient 30-39min; chronic exacerbation, 2 stable chronic or 1 acute illness add add modifier 95 for video, (do not use for phone, instead use 72820-28) [facility] [place] Estab. patient 30-39min; chronic exacerbation, 2 stable chronic or 1 acute illness add add modifier 95 for video, (do not use for phone, instead use 31028-24) [facility] [place] Estab. patient 30-39min; chronic exacerbation, 2 stable chronic or 1 acute illness add add modifier 95 for video, (do not use for phone, instead use 72578-17) [facility] [place] Estab. patient 30-39min; chronic exacerbation, 2 stable chronic or 1 acute illness add add modifier 95 for video, (do not use for phone, instead use 86865-86) [facility] [place] Estab. patient 30-39min; chronic exacerbation, 2 stable chronic or 1 acute illness add add modifier 95 for video, (do not use for phone, instead use 48273-39) [facility] [place] Estab. patient 20-29min; 1 stable chronic or 2 minor; add add modifier 95 for video, modifier 93 for phone [facility] [place]13/2024 Migraine, unspecified, not intractable, without status [...] 95 for video, modifier 93 for phone [facility] [place]13/20[place] Estab. patient 20-29min; 1 stable chronic or 2 minor; add add modifier 95 for video, modifier 93 for phone [facility] [place] 12/13/2024 Estab. patient 20-29min; 1 stable chronic or 2 minor; add add modifier 95 for video, modifier 93 for phone [facility] [place] 12/13/2024 Estab. patient 20-29min; 1 stable chronic or 2 minor; add add modifier 95 for video, modifier 93 for phone [facility] [place] 12/13/2024 Estab. patient 20-29min; 1 stable chronic or 2 minor; add add modifier 95 for video, modifier 93 for phone [facility] [place] 12/13/2024 Estab. patient 20-29min; 1 stable chronic or 2 minor; add add modifier 95 for video, modifier 93 for phone [facility] [place] 12/13/2024 Vital Signs Date of Collection Vitals [...] tive Time Current Smoking Status Never smoker 2025 4 Sex Female Gender identity Woman History of [...] (do not use for phone, instead use 61794-76) 92068 2022-08-13 No Data Available No Data Availa ble Estab. patient 30-39min; chronic exacerbation, 2 stable chronic or 1 acute illness add add modifier 95 for video, (do not use for phone, instead use 80407-11) 48693 2023-05-22 No Data Available No Data Availa [...] (do not use for phone, instead use 60736-44) 96621 2024-01-30 No Data Available No Data Availa [...] 95 for video, modifier 93 for phone [id number] 2024-12-13 No Data Available No Data Availa [...] mellitus ty pe 2, 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, on 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 insulin pumpMigrainesHyperlipidemia associated with type 2 diabetes [...] education needs that may arise.Has omnipod insulin [id number] 7.7% last monthBlood sugar varies, since adding [...] arise.Emgality monthlyNeurology - Dr. Magallanes omnipod insulin [id number] 7.7% last monthBlood sugar varies, since adding [...] Dr. Padilla, Lantus, Humalog Has omnipod insulin [id number] 7.7% Monitor BG routinely, low carb diet, [...] present (1126F)Continue to see PCP. Follow-up with [facility] as needed for any acute or disease education needs that may arise.StableQuilipta, Emgality Monitor for symptoms of migraines, continue taking medications, and continue f/u care with Neurology - Dr. Molina12/13/24 : Continue current treatment plan as directed. Had a f/u with Neurology on 12/09/24.StableRosuvastatin, Lantus, Humalog Has omnipod insulin [id number] 7.7% Monitor BG routinely, low carb diet, [...] Social history. 2024-12-13 <add details of Adva cte Care Planning conversation using .Full Code 2024-12-13 Most recent hospital stay(s) or ER visit(s) and precipitating factors: Denies 2024-12-13 Open HEDIS Measure milad san: Reviewed
== END 2025-01-24 14:26 | disposition home or self-care (01) ==
LOC: HO.HMCH 13:28
PROVIDERS: PCP Internal Medicine; Visit Provider Internal Medicine
DX: Z65.3 Problems related to other legal circumstances (principal)

== ENCOUNTER → 2025-01-24 13:28 | Outpatient (BNVA) | payer OTHER, SELFPAY | PROVIDERS: PCP Internal Medicine; Visit Provider Internal Medicine | DX: E11.3393 Type 2 diabetes mellitus with moderate nonproliferative diabetic retinopathy without macular edema, bilateral (principal); Z65.3 Problems related to other legal circumstances | CPT/HCPCS: 96127; 99211; 99212 ==

== ENCOUNTER 2025-01-24 15:30 | Outpatient (AMB) | payer OTHER, SELFPAY ==
--- NOTE | 2025-01-24 15:36 | A.OFFVIS_ITS ---
Intake Intake Visit Reasons: 60 min Security Sales Manager Required: Yes Security Sales Manager Language: Senior Corporate Accountant Name: Pt's daughter Mary Information Interpreted: non-clinical & clinical Accompanied by: Daughter Allergies francisco Allergy (Severe, Verified 01/24/25 13:32) Rash Penicillins Allergy (Intermediate, Verified 01/24/25 13:32) RASH/HIVES HPI Comprehensive Diabetes Asmnt Most Recent Diabetes Results: 2 Hemoglobin A1c 6.2 % 06/08/20 Microalb/Creat Ratio 10.8 ug/mg cr (<30) 07/05/24 Cholesterol 98 mg/dL (<200) 07/05/24 HDL Cholesterol 45 mg/dL (>40) 07/05/24 Triglycerides 105 mg/dL (<150) 07/05/24 Creatinine 0.80 mg/dL (0.5-1.4) 08/26/24 Blood Urea Nitrogen 24 mg/dL (9-16) H 08/26/24 Sodium 141 mmol/L (135-145) 08/26/24 Potassium 4.4 mmol/L (3.3-5.1) 08/26/24 Chloride 106 mmol/L (96-108) 08/26/24 Carbon Dioxide 31 mmol/L (22-29) H 08/26/24 Calcium 9.4 mg/dL (8.4-10.2) 08/26/24 AST 39 U/L (5-31) H 08/26/24 ALT 36 U/L (0-31) H 08/26/24 Total Protein 6.9 g/dL (6.5-8.0) 08/26/24 Albumin 3.9 g/dL (3.5-5.0) 08/26/24 [facility] Medical History Abdominal pain Simple ovarian cyst Diabetes type 2, uncontrolled Overactive bladder Diabetes mellitus Urge incontinence of urine Uninhibited neurogenic bladder Delayed gastric emptying Type 2 diabetes mellitus 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, 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 Type 2 diabetes mellitus 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 Nausea and vomiting Sinusitis History of stroke Colon cancer screening Right ankle swelling Cellulitis of right lower leg Swelling of right lower extremity Left leg pain Left ankle sprain Ankle fracture, left Chronic pain syndrome Dementia 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 Diabetic neuropathy UTI (urinary tract infection) Insomnia Glaucoma Migraine Acquired hypothyroidism Hearing impairment CVA (cerebral vascular accident) Blind left eye Localized swelling, mass and lump, neck Urinary tract infection with pyuria Elevated LFTs Elevated liver enzymes Depression Anxiety Urinary incontinence in female Dementia Osteoarthritis Lumbar spondylosis Pure hypercholesterolemia Type 2 diabetes mellitus with diabetic polyneuropathy Pain of right thumb Allergic rhinitis Hypertension Obesity (BMI 30-39.9) Vitamin D deficiency Dyslipidemia Diabetic polyneuropathy associated with type 2 diabetes mellitus Diabetic 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 type 2 diabetes mellitus 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 Right sided abdominal pain Dizziness and giddiness Orthostatic hypotension Charmaine albicans infection Surgical History History of carpal tunnel release History of pubovaginal sling Hx of eye surgery Hx of cystoscopy Hx of hysterectomy Hx of cholecystectomy History of esophagogastroduodenoscopy (EGD) Hx of colonoscopy Family History Father Diabetes Mother Heart problem Brother Diabetes Social History Housing: Apartment Are you a primary wild animal caretaker to a significant other at home: No Do you presently have visiting nurse or other home services: No Alcohol intake: never Patient Tobacco Use Status: Never used Tobacco e-Cigarette/Vaping Use: Never Used Second Hand Smoke Exposure: No service: No Current occupational status: disabled Gender identity: Female Cognitive needs: Yes (Cane, walker) Hearing needs: No Vision needs: Yes (Glasses) Female Reproductive History Menstrual Age of Menarche: 10 Assessment & Plan Assessment & Plan (1) Diabetic 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 type 2 diabetes mellitus: Code(s): E11.319 - Type 2 diabetes mellitus with unspecified diabetic retinopathy without macular edema Qualifiers: Diabetes mellitus macular edema: without macular edema Diabetic retinopathy severity: with moderate nonproliferative retinopathy Laterality: b ilateral Qualified Code(s): E11.3393 - Type 2 diabetes mellitus with moderate nonproliferative diabetic retinopathy without macular edema, bilateral Plan: Patient presents for pump training for? Omnipod 5 with Dexcom G6 Patient's last A1c 7% on 11/25/24 The following topics were reviewed today: -effects of stress on glucose levels ??? High Alert: 280 mg/dl ??? Low Alert: 80 mg/dl Patient's daughter Mary reports,that her father, Pt's has been placed in a custodial. This has caused stress on the Pt. She has reduced food intake which has led to reduced daily insulin. Pt had one day in manual mode, this led to multiple episodes of hypoglycemia, due to the mismatch programs basal insulin in manual mode verses basal insulin in auto mode. At today's visit we adjusted manual basal insulin to reflect current insulin daily dose Instructed patient's daughter if patient continues to have hypoglycemia in manual mode to contact clinical document improvement educator Safety information: Importance of a backup plan, for manual injections, proper prescriptions and emergency supplies ketone strips, and rules for testing for ketones Settings verified by clinical document improvement educator, no changes made to patient's insulin pump settings at today's visit Basal rate(s) (units/hour) : ?12 AM to 12 PM 1.5 units / hr New ?12 AM to 12 PM 0.45 units / hr 12 PM to 12 AM? 1.25 units / hr New 12 PM to 12 AM? 0.5 units / hr Bolus setting Insulin Carbohydrate Ratio (s) 12 AM to 12 AM 1:9 6 PM to 12 AM 1:10 Correction Factor / Sensitivity Factor 12 AM? to 12 AM 1:40 Active Insulin Time:? 4 hours Target(s): ?12 AM? to 12 PM? 120 mg/dL Correct above 120 mg/dL. Coding Level of Care Code Est Pt Level 1 (65058) Diagnoses 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 edema associated with type 2 diabetes mellitus E11.3393 Diabetes mellitus macular edema: without macular edema Diabetic retinopathy severity: with moderate nonproliferative retinopathy Laterality: bilateral
--- OUTSIDE RECORDS SUMMARY | 2025-01-24 18:00 | XMS_ITS ---
Author Name Worthington TELECOMMUNICATIONS TECHNICIAN,EXTENSION WORKER,FN P,ROLL COVERER, Chasidy Address [address] [place] [id number] Phone [phone] [facility] [facility] Care Team Providers Care Insurance Sales Supervisor Name Role Phone Chasidy Worthington Unavailable [phone] VANITA MOLINA Unavailable [phone] TRIP GOTEZ Unavailable [phone] MYAH ELDER Unavailable [phone] Dale Elijah Unavailable [phone] DEVIN ESTRELLA Unavailable [phone] XOCHITL TAVAREZ Unavailable [phone] Leijajanuary Unavailable [phone] Neil Velazquez Unavailable [phone] Reason for Referral Not Available Allergies, adverse [...] AT BEDTIME 2022 No Data Available Nystatin [id number] UNIT/GM Crm APPLY TO AFF ECTED AREA [...] 2023-02-24 2024-01-30 BD UF MICRO PEN NEEDLE [id number] DIRECTED INJECTS 4 TIMES A DAY 2023-03-19 [...] Active 2024-01-06 N/A Other problems related to [facility] facilities and other health care Active 2024-12-13 N/A Encounters Encounters Type Facility Date of Service Diagnosis/Co mplaint Pain Assessment - NO pain present (1126F) [facility] [place] Pain Assessment - NO pain present (1126F) [facility] [place] Pain Assessment - NO pain present (1126F) [facility] [place] Pain Assessment - NO pain present (1126F) [facility] [place] Pain Assessment - NO pain present (1126F) [facility] [place] Pain Assessment - NO pain present (1126F) [facility] [place] Pain Assessment - NO pain present (1126F) [facility] [place] Pain Assessment - NO pain present (1126F) [facility] [place] Pain Assessment - NO pain present (1126F) [facility] [place] Presence of insulin pump (external) (internal)Migraine, unspecified, not intractable, without status migrainosusType 2 diabetes mellitus with other specified 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Hyperlipidemia, unspecifiedUnspecified dementia without behavioral disturbanceOveractive bladderObesity, unspecifiedMajor depressive disorder, single episode, unspecifiedAnxiety disorder, unspecified Estab. patient 30-39min; chronic exacerbation, 2 stable chronic or 1 acute illness add add modifier 95 for video, (do not use for phone, instead use 07625-12) [facility] [place] Migraine, unspecified, not intractable, without status migrainosusType 2 diabetes mellitus with other specified 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Hyperlipidemia, unspecifiedUnspecified dementia without behavioral disturbanceMajor depressive disorder, recurrent, moderateOveractive bladderObesity, unspecifiedAnxiety disorder, unspecified Estab. patient 30-39min; chronic exacerbation, 2 stable chronic or 1 acute illness add add modifier 95 for video, (do not use for phone, instead use 93551-83) [facility] [place] Estab. patient 30-39min; chronic exacerbation, 2 stable chronic or 1 acute illness add add modifier 95 for video, (do not use for phone, instead use 07164-28) [facility] [place] Estab. patient 30-39min; chronic exacerbation, 2 stable chronic or 1 acute illness add add modifier 95 for video, (do not use for phone, instead use 52576-73) [facility] [place] Estab. patient 30-39min; chronic exacerbation, 2 stable chronic or 1 acute illness add add modifier 95 for video, (do not use for phone, instead use 11590-48) [facility] [place] Estab. patient 30-39min; chronic exacerbation, 2 stable chronic or 1 acute illness add add modifier 95 for video, (do not use for phone, instead use 50403-63) [facility] [place] Estab. patient 30-39min; chronic exacerbation, 2 stable chronic or 1 acute illness add add modifier 95 for video, (do not use for phone, instead use 74493-31) [facility] [place] Estab. patient 30-39min; chronic exacerbation, 2 stable chronic or 1 acute illness add add modifier 95 for video, (do not use for phone, instead use 63924-80) [facility] [place] Estab. patient 30-39min; chronic exacerbation, 2 stable chronic or 1 acute illness add add modifier 95 for video, (do not use for phone, instead use 40139-11) [facility] [place] Estab. patient 30-39min; chronic exacerbation, 2 stable chronic or 1 acute illness add add modifier 95 for video, (do not use for phone, instead use 70701-16) [facility] [place] Estab. patient 30-39min; chronic exacerbation, 2 stable chronic or 1 acute illness add add modifier 95 for video, (do not use for phone, instead use 77540-23) [facility] [place]/2024 Migraine, unspecified, not intractable, [...] (do not use for phone, instead use 15960-53) [facility] ([place] 01/30/2024 Estab. patient 30-39min; chronic exacerbation, 2 stable chronic or 1 acute illness add add modifier 95 for video, (do not use for phone, instead use 66425-91) [facility] [place] Estab. patient 30-39min; chronic exacerbation, 2 stable chronic or 1 acute illness add add modifier 95 for video, (do not use for phone, instead use 99584-46) [facility] [place] Estab. patient 30-39min; chronic exacerbation, 2 stable chronic or 1 acute illness add add modifier 95 for video, (do not use for phone, instead use 23055-21) [facility] [place] Estab. patient 30-39min; chronic exacerbation, 2 stable chronic or 1 acute illness add add modifier 95 for video, (do not use for phone, instead use 12437-53) [facility] [place] 01/[place]/20[place] Estab. patient 30-39min; chronic exacerbation, 2 stable chronic or 1 acute illness add add modifier 95 for video, (do not use for phone, instead use 11089-50) [facility] [place] 01/[place]/20[place] Estab. patient 30-39min; chronic exacerbation, 2 stable chronic or 1 acute illness add add modifier 95 for video, (do not use for phone, instead use 31012-99) [facility] [place] 01/[place]/20[place] Estab. patient 30-39min; chronic exacerbation, 2 stable chronic or 1 acute illness add add modifier 95 for video, (do not use for phone, instead use 09959-60) [facility] [place] 01/[place]/20[place] Estab. patient 30-39min; chronic exacerbation, 2 stable chronic or 1 acute illness add add modifier 95 for video, (do not use for phone, instead use 84131-95) [facility] [place] 01/[place]/20[place] Estab. patient 20-29min; 1 stable chronic or 2 minor; add add modifier 95 for video, modifier 93 for phone [facility] [place] 12/13/2024 Migraine, unspecified, not intractable, without status [...] 95 for video, modifier 93 for phone [facility] [place] 12/13/2024 Estab. patient 20-29min; 1 stable chronic or 2 minor; add add modifier 95 for video, modifier 93 for phone [facility] [place] 12/13/2024 Estab. patient 20-29min; 1 stable chronic or 2 minor; add add modifier 95 for video, modifier 93 for phone [facility] [place] 12/13/2024 Estab. patient 20-29min; 1 stable chronic or 2 minor; add add modifier 95 for video, modifier 93 for phone [facility] [place] 12/13/2024 Estab. patient 20-29min; 1 stable chronic or 2 minor; add add modifier 95 for video, modifier 93 for phone [facility] [place] 12/13/2024 Estab. patient 20-29min; 1 stable chronic or 2 minor; add add modifier 95 for video, modifier 93 for phone [facility] [place] 12/13/2024 Vital Signs Date of Collection Vitals [...] (do not use for phone, instead use 91685-03) [id number] 2022-08-13 No Data Available No Data Availa ble Estab. patient 30-39min; chronic exacerbation, 2 stable chronic or 1 acute illness add add modifier 95 for video, (do not use for phone, instead use 33651-61) [id number] 2023-05-22 No Data Available No Data Availa [...] (do not use for phone, instead use 54331-35) [id number] 2024-01-30 No Data Available No Data Availa [...] 95 for video, modifier 93 for phone [id number] 2024-12-13 No Data Available No Data Availa [...] mellitus ty pe 2, 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, on local company intermodal truck driver insulin pumpMigrainesHyperlipidemia associated with type [...] education needs that may arise.Has omnipod insulin [id number] 7.7% last monthBlood sugar varies, since adding Trulicity is not as highEndocrinology - Neil Fanggalart monthlyNeurology - Dr. MolinaRosuvastatin 40mg dailyDrRogreio Nava AquillinoDonepezil 10mg dailyMirtazepine 30mg QHSQuetiapine 75 [...] arise.Emgality monthlyNeurology - Dr. Magallanes omnipod insulin [id number] 7.7% last monthBlood sugar varies, since adding [...] Dr. Padilla, Lantus, Humalog Has omnipod insulin [id number] 7.7% Monitor BG routinely, low carb diet, [...] present (1126F)Continue to see PCP. Follow-up with [facility] as needed for any acute or disease education needs that may arise.StableQuilipta, Emgality Monitor for symptoms of migraines, continue taking medications, and continue f/u care with Neurology - Dr. Molina12/13/24 : Continue current treatment plan as directed. Had a f/u with Neurology on 12/09/24.StableRosuvastatin, Lantus, Humalog Has omnipod insulin [id number] 7.7% Monitor BG routinely, low carb diet, [...] Social history. 2024-12-13 <add details of Adva iae Care Planning conversation using .Full Code 2024-12-13 Most recent hospital stay(s) or ER visit(s) and precipitating factors: Denies 2024-12-13 Open HEDIS Measure milad san: Reviewed
== END 2025-01-24 16:03 | disposition home or self-care (01) ==
LOC: HO.ENCR 15:30
PROVIDERS: PCP Internal Medicine; Visit Provider Registered Nurse Diabetes Educator
DX: E11.3393 Type 2 diabetes mellitus with moderate nonproliferative diabetic retinopathy without macular edema, bilateral (principal)

== ENCOUNTER 2025-02-25 09:08 | Outpatient (REF) | payer OTHER, SELFPAY ==
--- OUTSIDE RECORDS SUMMARY | 2025-02-25 09:21 | XMS_ITS ---
Author Name Worthington EKG/ECG TECHNICIAN,ENVIRONMENTAL SERVICES ASSISTANT,FN P,WAREHOUSE DISTRIBUTION MANAGER, Chasidy Address [address] [place] [id number] Phone [phone] [facility] Care Team Providers Care Cartographic Aide Name Role Phone Chasidy Worthington Unavailable [phone] VANITA MOLINA Unavailable [phone] TRIP GOETZ Unavailable [phone] MYAH ELDER Unavailable [phone] Elijah Hunter Unavailable [phone] DEVIN ESTRELLA Unavailable [phone] XOCHITL TAVAREZ Unavailable [phone] Leijajanuary Unavailable [phone] Neil Velazquez Unavailable [phone] Reason for Referral Not Available Allergies, adverse [...] AT BEDTIME 2022 No Data Available Nystatin [id number] UNIT/GM Crm APPLY TO AFF ECTED AREA [...] 2023-02-24 2024-01-30 BD UF MICRO PEN NEEDLE [id number] DIRECTED INJECTS 4 TIMES A DAY 2023-03-19 [...] Active 2024-01-06 N/A Other problems related to [facility] facilities and other health care Active 2024-12-13 N/A Encounters Encounters Type Facility Date of Service Diagnosis/Co mplaint Pain Assessment - NO pain present (1126F) [facility] [place] Pain Assessment - NO pain present (1126F) [facility] [place] Pain Assessment - NO pain present (1126F) [facility] [place] Pain Assessment - NO pain present (1126F) [facility] [place] Pain Assessment - NO pain present (1126F) [facility] [place] Pain Assessment - NO pain present (1126F) [facility] [place] Pain Assessment - NO pain present (1126F) [facility] [place] Pain Assessment - NO pain present (1126F) [facility] [place] Pain Assessment - NO pain present (1126F) [facility] [place] Presence of insulin pump (external) (internal)Migraine, unspecified, not intractable, without status migrainosusType 2 diabetes mellitus with other specified 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Hyperlipidemia, unspecifiedUnspecified dementia without behavioral disturbanceOveractive bladderObesity, unspecifiedMajor depressive disorder, single episode, unspecifiedAnxiety disorder, unspecified Estab. patient 30-39min; chronic exacerbation, 2 stable chronic or 1 acute illness add add modifier 95 for video, (do not use for phone, instead use 33051-99) [facility] [place] Migraine, unspecified, not intractable, without status migrainosusType 2 diabetes mellitus with other specified 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Hyperlipidemia, unspecifiedUnspecified dementia without behavioral disturbanceMajor depressive disorder, recurrent, moderateOveractive bladderObesity, unspecifiedAnxiety disorder, unspecified Estab. patient 30-39min; chronic exacerbation, 2 stable chronic or 1 acute illness add add modifier 95 for video, (do not use for phone, instead use 19915-58) [facility] [place] Estab. patient 30-39min; chronic exacerbation, 2 stable chronic or 1 acute illness add add modifier 95 for video, (do not use for phone, instead use 59890-72) [facility] Estab. patient 30-39min; chronic exacerbation, 2 stable chronic or 1 acute illness add add modifier 95 for video, (do not use for phone, instead use 70459-17) [facility] Estab. patient 30-39min; chronic exacerbation, 2 stable chronic or 1 acute illness add add modifier 95 for video, (do not use for phone, instead use 52595-57) [facility] [place] Estab. patient 30-39min; chronic exacerbation, 2 stable chronic or 1 acute illness add add modifier 95 for video, (do not use for phone, instead use 28381-51) [facility] [place] Estab. patient 30-39min; chronic exacerbation, 2 stable chronic or 1 acute illness add add modifier 95 for video, (do not use for phone, instead use 17156-65) [facility] [place] Estab. patient 30-39min; chronic exacerbation, 2 stable chronic or 1 acute illness add add modifier 95 for video, (do not use for phone, instead use 21416-10) [facility] [place] Estab. patient 30-39min; chronic exacerbation, 2 stable chronic or 1 acute illness add add modifier 95 for video, (do not use for phone, instead use 81700-07) [facility] [place] Estab. patient 30-39min; chronic exacerbation, 2 stable chronic or 1 acute illness add add modifier 95 for video, (do not use for phone, instead use 84195-21) [facility] [place] Estab. patient 30-39min; chronic exacerbation, 2 stable chronic or 1 acute illness add add modifier 95 for video, (do not use for phone, instead use 48477-28) [facility] [place] Migraine, unspecified, not intractable, [...] (do not use for phone, instead use 48927-54) [facility] [place] Estab. patient 30-39min; chronic exacerbation, 2 stable chronic or 1 acute illness add add modifier 95 for video, (do not use for phone, instead use 17974-05) [facility] [place] Estab. patient 30-39min; chronic exacerbation, 2 stable chronic or 1 acute illness add add modifier 95 for video, (do not use for phone, instead use 42143-86) [facility] [place] Estab. patient 30-39min; chronic exacerbation, 2 stable chronic or 1 acute illness add add modifier 95 for video, (do not use for phone, instead use 53664-06) [facility] [place] Estab. patient 30-39min; chronic exacerbation, 2 stable chronic or 1 acute illness add add modifier 95 for video, (do not use for phone, instead use 80875-73) [facility] [place] Estab. patient 30-39min; chronic exacerbation, 2 stable chronic or 1 acute illness add add modifier 95 for video, (do not use for phone, instead use 08311-05) [facility] [place] Estab. patient 30-39min; chronic exacerbation, 2 stable chronic or 1 acute illness add add modifier 95 for video, (do not use for phone, instead use 68555-15) [facility] [place] Estab. patient 30-39min; chronic exacerbation, 2 stable chronic or 1 acute illness add add modifier 95 for video, (do not use for phone, instead use 00960-49) [facility] [place]/20[place] Estab. patient 30-39min; chronic exacerbation, 2 stable chronic or 1 acute illness add add modifier 95 for video, (do not use for phone, instead use 05518-06) [facility] [place] Estab. patient 20-29min; 1 stable chronic or 2 minor; add add modifier 95 for video, modifier 93 for phone [facility] [place]/2024 Migraine, unspecified, not intractable, without status [...] 95 for video, modifier 93 for phone [facility] [place]13/20[place] Estab. patient 20-29min; 1 stable chronic or 2 minor; add add modifier 95 for video, modifier 93 for phone [facility] [place]/13/2024 Estab. patient 20-29min; 1 stable chronic or 2 minor; add add modifier 95 for video, modifier 93 for phone [facility] [place]/13/20[place] Estab. patient 20-29min; 1 stable chronic or 2 minor; add add modifier 95 for video, modifier 93 for phone [facility] [place]/13/20[place] Estab. patient 20-29min; 1 stable chronic or 2 minor; add add modifier 95 for video, modifier 93 for phone [facility] [place] 12[place]13/2024 Estab. patient 20-29min; 1 stable chronic or 2 minor; add add modifier 95 for video, modifier 93 for phone [facility] [place] 12/13/2024 Vital Signs Date of Collection Vitals [...] tive Time Current Smoking Status Never smoker 2025-02-10 6 Sex Female Gender identity Woman History [...] (do not use for phone, instead use 07432-92) [id number] 2022-08-13 No Data Available No Data Availa ble Estab. patient 30-39min; chronic exacerbation, 2 stable chronic or 1 acute illness add add modifier 95 for video, (do not use for phone, instead use 76947-36) [id number] 2023-05-22 No Data Available No Data Availa [...] (do not use for phone, instead use 34511-24) [id number] 2024-01-30 No Data Available No Data Availa [...] 95 for video, modifier 93 for phone [id number] 2024-12-13 No Data Available No Data Availa [...] mellitus ty pe 2, 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, on custodial insulin pumpMigrainesHyperlipidemia associated with type 2 diabetes [...] education needs that may arise.Has omnipod insulin [id number] 7.7% last monthBlood sugar varies, since adding [...] arise.Emgality monthlyNeurology - Dr. Magallanes omnipod insulin [id number] 7.7% last monthBlood sugar varies, since adding [...] Dr. Padilla, Lantus, Humalog Has omnipod insulin [id number] 7.7% Monitor BG routinely, low carb diet, [...] present (1126F)Continue to see PCP. Follow-up with [facility] as needed for any acute or disease education needs that may arise.StableQuilipta, Emgality Monitor for symptoms of migraines, continue taking medications, and continue f/u care with Neurology - Dr. Molina12/13/24 : Continue current treatment plan as directed. Had a f/u with Neurology on 12/09/24.StableRosuvastatin, Lantus, Humalog Has omnipod insulin [id number] 7.7% Monitor BG routinely, low carb diet, [...] Social history. 2024-12-13 <add details of Adva kse Care Planning conversation using .Full Code 2024-12-13 Most recent hospital stay(s) or ER visit(s) and precipitating factors: Denies 2024-12-13 Open HEDIS Measure milad san: Reviewed
[2025-02-25 09:26] LABS: MANUAL DIFF FLAG NO
[2025-02-25 10:44] LABS: Estimated Average Glucose 148 mg/dL; Hemoglobin A1C 172.0216 umol/L; Hemoglobin A1c % 6.8 % (<6.0); Total Hemoglobin (HGBA1C) 3363.6321 umol/L
[2025-02-25 10:49] LABS: Basophils Percent Auto 0.8 % (0-2); Eosinophils Absolute Auto 0.1 X10*3/uL (0.0-0.4); Eosinophils Percent Auto 2.7 % (0-4); Hematocrit 37.6 % (37.0-47.0); Hemoglobin 12.7 g/dl (12.0-16.0); Imm Gran Abs Auto 0.02 X10*3/uL (0.00-0.03); Imm Gran Pct Auto 0.5 % (0.0-0.4); Lymphocytes Absolute Auto 1.6 X10*3/uL (1.2-4.9); Lymphocytes Percent Auto 42.8 % (20-40); Mean Corpuscular HGB Conc 33.8 g/dl (31.0-35.0); Mean Corpuscular Hemoglobin 30.4 pg (27.0-33.0); Mean Platelet Volume 9.5 fL (9.4-12.3); Monocytes Absolute Auto 0.3 X10*3/uL (0.1-1.2); Monocytes Percent Auto 6.7 % (2-11); Neutrophils Absolute Auto 1.7 x10*3/uL (2.0-8.3); Neutrophils Percent Auto 46.5 % (45-73); Platelet Count 119 X10*3/uL (160-400); Red Blood Count 4.18 X10*6/uL (4.20-5.50); White Blood Count 3.7 X10*3/uL (4.8-10.8)
[2025-02-25 10:55] LABS: Appearance Urine Cloudy; Color Urine Yellow; Glucose Urine UA Negative (Negative); Leukocyte Esterase Urine Trace (Negative); Nitrite Urine Positive (Negative); UMIC TRIGGER UACC YES; Urine Blood Negative (Negative); Urine Ketones Trace mg/dL (Negative); Urine Protein Negative (Neg-Trace)
[2025-02-25 11:13] LABS: Bacteria Urine 4+ (None Seen); Hyaline Casts Urine 0-2 /LPF (0-2); RBC Urine 0-2 /HPF (0-2); Squamous Epithelial Cell Urine 0-2 /HPF (0-2); UACC Culture Trigger YES; WBC Urine 0-5 /HPF (0-5)
[2025-02-25 11:35] LABS: Alanine Aminotransferase 43 U/L (0-31); Albumin Level 3.8 g/dL (3.5-5.0); Alkaline Phosphatase 100 U/L (39-117); Anion Gap 12 (12-20); Aspartate Amino Transferase 45 U/L (5-31); Bilirubin Total 0.3 mg/dL (0.0-1.0); Blood Urea Nitrogen 17 mg/dL (9-16); Calcium 9.6 mg/dL (8.4-10.2); Carbon Dioxide 30 mmol/L (22-29); Chloride 106 mmol/L (96-108); Cholesterol 108 mg/dL (<200); Estimated Glomerular Filt Rate > 60; Free T4 (Free Thyroxine) 1.09 ng/dL (0.71-1.85); Glucose Fasting 146 mg/dL (60-99); HDL Cholesterol 43 mg/dL (>40); LDL Cholesterol Calculated 38 mg/dL (<100); Potassium 4.5 mmol/L (3.3-5.1); Sodium 143 mmol/L (135-145); TSH reflex Free T4 0.07 uIU/mL (0.32-4.0); Total Protein 6.8 g/dL (6.5-8.0); Triglycerides 138 mg/dL (<150); Vitamin D 25-OH Total 41.2 ng/mL (>30)
[2025-02-25 12:23] LABS: Creatinine Urine 91.86 mg/dL; Microalbum/Creatinine Ratio Ur 10.8 ug/mg cr (<30)
== END 2025-02-25 09:09 | disposition home or self-care (01) ==
LOC: HO.LAB 09:08
PROVIDERS: PCP Internal Medicine; Visit Provider Internal Medicine
DX: E78.00 Pure hypercholesterolemia, unspecified (principal); E11.9 Type 2 diabetes mellitus without 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s; D64.9 Anemia, unspecified; E11.8 Type 2 diabetes mellitus with unspecified 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s; Z96.41 Presence of insulin pump (external) (internal); K31.84 Gastroparesis; E04.9 Nontoxic goiter, unspecified; M48.12 Ankylosing hyperostosis [Forestier], cervical region; K21.9 Gastro-esophageal reflux disease without esophagitis; K59.04 Chronic idiopathic constipation; H40.9 Unspecified glaucoma; F02.818 Dementia in other diseases classified elsewhere, unspecified severity, with other behavioral disturbance
CPT/HCPCS: 36415; 80053; 80061; 81001; 82043; 82306; 82570; 83036; 84439; 84443; 85025; 87086

== ENCOUNTER 2025-02-28 13:50 | Outpatient (AMB) | payer OTHER, SELFPAY ==
[2025-02-28 13:54] VITALS: BP 112/70; PULSE 83; O2SAT 96; BMI 28.8
--- NOTE | 2025-02-28 13:54 | A.OFFPC_ITS ---
Vital Signs 02/28/25 13:54 Height 5 ft 1 in Weight 152 lb 8 oz BMI 28.8 BP 112/70 Blood Pressure Location Lt brachial Position Sitting Pulse 83 Pulse Source Pulse Oximeter Pulse Oximetry (%) 96 Oxygen Delivery Method Room Air Intake Visit Reasons: Annual PE - see comments Senior Label Specialist Required: No Accompanied by: Self / Same As Patient Allergies francisco Allergy (Severe, Verified 02/28/25 14:38) Rash Penicillins Allergy (Intermediate, Verified 02/28/25 14:38) RASH/HIVES Medication List - Last Reconciled 02/28/25 by Elijah Hunter MD [DDisposable Underwear Heavy Absorbency Large (2) - Personal As directed] [Disposable Underpad 30 x 30 Heavy Flow As directed] [ADULT DIAPERS/BRIEFS As directed] aspirin 81 mg PO DAILY atogepant (Qulipta) 30 mg PO DAILY betamethasone dipropionate 0.05% 1 appl topical DAILY bisacodyl (Laxative (bisacodyl)) 10 mg (2 x 5 mg) PO BEDTIME blood sugar diagnostic (OneTouch Ultra Test strips) 4 times daily for sensor failure or to confirm sensor reading blood-glucose meter dispense as one touch ultra to go with one touch ultra strips blood-glucose sensor (UV [facility] G7 Sensor device) every 10 days blood-glucose,template reproduction technician,cont (Dexcom G7 [facility]) As directed cholecalciferol (vitamin D3) 125 mcg PO DAILY clonazepam 1 mg PO BEDTIME compr.stocking,knee,long,large As directed diaper,brief,adult,disposable (Overnight Underwear Large) As directed PULL UPS donepezil 5 mg PO DAILY dorzolamide-timolol (PF) 2-0.5 % 1 drp ophthalmic (eye) BID dulaglutide (Trulicity) 0.75 mg (0.5 mL) subcut QWEEK fluoxetine 20 mg PO BID fluticasone propionate 50 mcg/actuation 2 sprays intranasal DAILY PRN gabapentin 300 mg PO TID 30 days hydroxyzine HCl 25 mg PO TID PRN insulin glargine (Lantus Solostar U-100 Insulin) 9 units (0.09 mL) subcut QPM PRN 30 days insulin lispro (Humalog U-100 Insulin) 0 - 76 units (0 - 0.76 mL) subcut DAILY insulin pump cart,auto,BT,G6/7 (Omnipod 5 G6-G7 Pods (Gen 5) subcutaneous cartridge) As directed every 3 days insulin pump cart,auto,BT-cntr (Omnipod 5 G6 Intro Kit (Gen 5) subcutaneous cartridge with controller) As directed lancets as directed qid to go with one touch ultra stips latanoprostene bunod 0.024% (Vyzulta) 1 drp ophthalmic (eye) BEDTIME levothyroxine 125 mcg PO QAM magnesium oxide 400 mg PO BEDTIME melatonin 6 mg PO BEDTIME PRN methylcellulose (laxative) (Fiber Therapy (methylcellulose)) 1,000 mg (2 x 500 mg) PO DAILY PRN midodrine 10 mg PO TID mirabegron ER (Myrbetriq) 50 mg PO DAILY mirtazapine 30 mg PO QPM miscellaneous medical supply Wipes miscellaneous; 100 wipebox/ 3 boxes mupirocin 2% 1 appl topical BID pen needle, diabetic (Comfort EZ Pen [place]) As directed injects 4 times a day [Personal Cleansing Wipes (2) As directed] plecanatide (Trulance) 3 mg PO DAILY quetiapine 75 mg PO BEDTIME rabeprazole 20 mg PO BID rosuvastatin 40 mg PO DAILY scopolamine base 1 patch transdermal Q3D PRN simethicone (Anti-Gas Ultra Strength) 180 mg PO QID [UNDERPADS As directed] Tobacco use date assessed: 02/28/25 Fall risk assessment: No Falls in past year Last assessed Fall Risk: 02/28/25 Dental Screening Dental Screen Date: 02/28/25 (dentures ) Did you have a dental visit in the last 12 months?: No Did you have a dental problem in the last 6 months where you did not have access to dental care?: No Was dental information given to patient?: Patient has dentist HPI Annual PE - see comments HPI Details Patient comes in today for her annual physical examination She is as usual accompanied by her daughter Mary, who is the one who always takes her to all of her appointments/visits, tests and procedures over the past few years and who is her primary/sole caregiver Mary states that patient has been doing well lately and has been sleeping much better at night Patient denies any headaches or dizziness Denies any chest pains, no increased SOB No nausea/vomiting, no abdominal pain No change in bowel habits noted She denies any acute urinary symptoms - still has urinary incontinence, likely due in part to her dementia She had her follow up labs done a few days ago She had her last annual mammogram done last month on 01/17/2025 She had her repeat colonoscopy last done with Dr. Montiel in 04/2023 - she will be due for repeat colonoscopy in 7 to 10 years if in good health She has never had BMD done in the past, as far as her daughter can recall She also no longer keeps up with her yearly gynecology exam and pap smear, based on her age [facility] Medical History (Updated 03/01/25 @ 06:10 by Elijah Hunter MD) Elevated LFTs Type 2 diabetes mellitus with diabetic polyneuropathy Abdominal pain Simple ovarian cyst Diabetes type 2, uncontrolled Overactive bladder Diabetes mellitus Urge incontinence of urine Uninhibited neurogenic bladder Delayed gastric emptying Type 2 diabetes mellitus 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, with exterminator helper termite current use of insulin pump Type 2 diabetes mellitus 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 Nausea and vomiting Sinusitis History of stroke Colon cancer screening Right ankle swelling Cellulitis of right lower leg Swelling of right lower extremity Left leg pain Left ankle sprain Ankle fracture, left Chronic pain syndrome Dementia 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 Diabetic neuropathy UTI (urinary tract infection) Insomnia Glaucoma Migraine Acquired hypothyroidism Hearing impairment CVA (cerebral vascular accident) Blind left eye Localized swelling, mass and lump, neck Urinary tract infection with pyuria Elevated liver enzymes Depression Anxiety Urinary incontinence in female Dementia Osteoarthritis Lumbar spondylosis Pure hypercholesterolemia Pain of right thumb Allergic rhinitis Hypertension Obesity (BMI 30-39.9) Vitamin D deficiency Dyslipidemia Diabetic polyneuropathy associated with type 2 diabetes mellitus Diabetic 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 type 2 diabetes mellitus director long term care (current) use of insulin Right sided abdominal pain Dizziness and giddiness Orthostatic hypotension Charmaine albicans infection Surgical History (Updated 02/28/25 @ 14:40 by Elijah Hunter MD) History of carpal tunnel release History of pubovaginal sling Hx of eye surgery Hx of cystoscopy Hx of hysterectomy Hx of cholecystectomy History of esophagogastroduodenoscopy (EGD) Hx of colonoscopy Family History Father Diabetes Mother Heart problem Brother Diabetes Social History Housing: Apartment Are you a primary family day carer to a significant other at home: No Do you presently have visiting nurse or other home services: No Alcohol intake: never Patient Tobacco Use Status: Never used Tobacco e-Cigarette/Vaping Use: Never Used Second Hand Smoke Exposure: No service: No Current occupational status: disabled Gender identity: Female Cognitive needs: Yes (Cane, walker) Hearing needs: No Vision needs: Yes (Glasses) Female Reproductive History Menstrual Age of Menarche: 10 Questionnaire PHQ-9 Over the last 2 weeks, how often have you been bothered by any of the following problems? 1. Little interest or pleasure in doing things: not at all 2. Feeling down, depressed, or hopeless: several days 3. Trouble falling or staying asleep, or sleeping too much: several days 4. Feeling tired or having little energy: more than half the days 5. Poor appetite or overeating: more than half the days 6. Feeling bad about yourself - or that you are a failure or have let yourself or your family down: not at all 7. Trouble concentrating on things, such as reading the newspaper or watching television: more than half the days 8. Moving or speaking so slowly that other people could have noticed. Or the opposite - being so fidgety or restless that you have been moving around a lot more than usual: more than half the days 9. Thoughts that you would be better off or of hurting yourself in some way: not at all Total score: 10 Depression Screening Interpretation: Positive Depression Screening Follow-up: Existing condition and In treatment Depression Screening Done: Yes 51137 - PHQ-9 Billing: Yes Source: Developed by Drs. Neil Wayne, Lakisha Bell, Latrell Serra and colleagues, with an educational sophie from [employer]. Thrive Questionnaire Date Thrive assessed: 02/28/25 I am a: Parent/Caregiver What is your living situation today?: I have a steady place to live Within the past 12 months, did the food you bought not last and you didn't have the money to get more?: Sometimes True Within the past 12 months, did you worry whether your food would run out before you got money to buy more?: Sometimes True Do you have trouble paying for medicines?: No Do you have trouble getting transportation to medical appointments?: No Do you have trouble paying your heating and electricity bill?: Yes Do you have trouble taking care of your child, family member or friend?: No Do you have trouble with day-to-day activities such as bathing, preparing meals, shopping, managing finances, etc.?: No Are you currently unemployed and looking for a job?: No Are you interested in more education?: No Please select the resources that you would like help with: Utilities Currently or been in a relationship where the following occur: No concerns reported THRIVE Score: 3 AUDIT C Alcohol Use Questionnaire (AUDIT-C) 1. How often do you have a drink containing alcohol?: Never 3. How often do you have six or more drinks on one occasion?: Never Total Score: 0 Score Reviewed/Action Taken: Yes REJI-7 AMB Questionnaire REJI-7 Date REJI - 7 assessed: 02/28/25 (patient on RX) Feeling nervous, anxious, or on edge: 1 = Several days Not being able to stop or control worryin = Several days Worrying too much about different things: 1 = Several days Trouble relaxin = Several days Being so restless that it is hard to sit still: 1 = Several days Becoming easily annoyed or irritable: 1 = Several days Feeling afraid as if something awful might happen: 1 = Several days Total REJI-7 score (0-4 normal; 5-9 mild; 10-14 moderate; 15-21 severe): 7 Source: Developed by Drs. Neil Wayne, Lakisha Bell, Latrell Serra and colleagues, with an educational sophie from [employer]. Review of Systems Const Details: ROS is obtained primarily through patient's daughter due to patient's dementia as well as limitations due to language barrier Denies chills, Reports fatigue, Denies fever(s) and Denies headache(s) (controlled on current Rx) Eyes Denies blurry vision, Denies change in vision, Denies irritation and Denies itchy eyes ENT Denies dysphagia, Denies dizziness, Denies otalgia, Denies headache(s) (controlled on current Rx), Reports neck pain (chronic), Denies odynophagia and Denies sore throat Card Denies chest pain, Denies palpitations and Reports dyspnea on exertion (mild) Resp Denies chest congestion, Denies cough, Reports dyspnea on exertion (mild) and Denies wheezing GI Denies abdominal pain, Denies bloating, Reports constipation (chronic - currently controlled on Rx), Denies dysphagia, Denies heartburn, Denies diarrhea, Denies nausea, Denies odynophagia and Denies vomiting Denies hematuria, Denies difficulty voiding, Reports nocturia, Denies dysuria and Reports urinary incontinence Musc Reports back pain, Reports arthralgias (increased lately, especially in her knees - pain feels worse in AM) and Reports neck pain (chronic) Skin/Breast Denies lesions and Denies rash Neuro Denies behavioral changes, Denies dizziness, Denies headache(s) (controlled on current Rx), Reports memory loss and Denies tremor(s) Psych Reports anxiety, Denies behavioral changes, Reports memory loss and Denies mood swings Endo Reports fatigue and Denies palpitations Ethan/Lymph Denies easy bruising Aller/Immun Denies itchy eyes and Denies wheezing Physical exam (Primary Care) Vital Signs: Last Vital Signs Pulse 83 02/28/25 13:54 BP 112/70 02/28/25 13:54 Pulse Ox 96 02/28/25 13:54 Oxygen Delivery Method Room Air 02/28/25 13:54 BMI result Body Mass Index 28.8 Tobacco/Smoking Status: Tobacco use Status Tobacco use date assessed 02/28/25 02/28/25 13:57 Patient Tobacco Use Status Never used Tobacco 02/28/25 13:57 e-Cigarette/Vaping Use Never Used 02/28/25 13:57 PHQ-9: PHQ-9 Score PHQ-9: Total score 10 02/28/25 14:57 Depression Screening Interpretation: Positive Depression Screening Follow-up: Existing condition and In treatment Thrive Assessment: Date of Thrive Assessment Date Thrive assessed 02/28/25 02/28/25 13:57 Currently or been in a relationship where the following occur: No concerns reported Const General: no acute distress and alert Orientation/consciousness: patient oriented x3 HENMT Head: Yes normocephalic and Yes atraumatic Ears: external ears normal, TM's normal bilaterally and EAC's normal General nose exam: No nasal discharge present Face and sinus: Yes normal facial exam and Yes sinuses nontender Teeth and gingiva: dentition normal Throat: Yes posterior oropharynx normal and Yes tonsils normal (no TP congestion) Eyes Eyelids: Yes eyelids normal Conjunctivae: conjunctivae normal Pupils: Equal, round and reactive pupils present EOM: EOMs intact bilaterally Neck Neck: Yes supple and No lymphadenopathy Thyroid: Thyroid normal Resp Auscultation: clear to auscultation bilaterally, no rales and no wheezes Cardio Rate: regular rate Rhythm: regular rhythm Heart sounds: no murmurs GI Palpation (GI): Soft to palpation and nontender Auscultation: normal bowel sounds General: Yes no CVA tenderness Back/Spine/Pelvis Back: no CVA tenderness Cervical Spine: Cervical spine tenderness Thoracic/Lumbar Spine: lumbar spinal tenderness Skin Lesions: no lesions Rashes: no rashes Neuro General: patient oriented x3, moves all extremities, no focal motor deficits and CN's II-XI intact bilaterally Cranial nerves: Yes Equal, round and reactive pupils present Cognition (Neuro): normal cognition Gait exam (Neuro): Normal gait present Extrem General: Yes no clubbing, cyanosis or edema Right lower extremity: knee Details: tenderness; no swelling Left lower extremity: knee Details: tenderness; no swelling Results Reviewed Results Reviewed: Laboratory Tests 02/25/25 02/25/25 09:19 09:24 WBC 3.7 L Hgb 12.7 Hct 37.6 Plt Count 119 L Sodium 143 Potassium 4.5 Creatinine 0.74 Estimated GFR > 60 Fasting Glucose 146 H Hemoglobin A1c % 6.8 H Calcium 9.6 AST 45 H ALT 43 H Triglycerides 138 Cholesterol 108 LDL Cholesterol, Calc 38 HDL Cholesterol 43 25-OH Vitamin D Total 41.2 TSH 0.07 L Free T4 1.09 Ur Specific [place] 1.020 Urine Protein Negative Urine Glucose (UA) Negative Urine Blood Negative Urine Nitrite Positive H Ur Leukocyte Esterase Trace H Microalb/Creat Ratio 10.8 Coding Level of Care Code Est Pt Prev Care >65y(22477) Diagnoses Annual physical exam Z00.00 Type 2 diabetes mellitus with diabetic polyneuropathy, with long-term current use of insulin E11.42; Z79.4 Diabetes mellitus exterminator helper termite insulin use: with exterminator helper termite use 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 edema associated with type 2 diabetes mellitus E11.3393 Diabetic retinopathy severity: with moderate nonproliferative retinopathy Diabetes mellitus macular edema: without macular edema Laterality: bilateral Pure hypercholesterolemia E78.00 Migraine without status migrainosus, not intractable, unspecified migraine type G43.909 Migraine type: unspecified Status migrainosus presence: without status migrainosus Intractability: not intractable Dementia 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 F02.81 Gastroesophageal reflux disease without esophagitis K21.9 Esophagitis presence: without esophagitis Chronic idiopathic constipation K59.04 Elevated LFTs R79.89 Acquired hypothyroidism E03.9 Allergic rhinitis, unspecified seasonality, unspecified trigger J30.9 Allergic rhinitis trigger: unspecified Allergic rhinitis seasonality: unspecified Diffuse idiopathic skeletal hyperostosis of cervical spine M48.12 Lumbar spondylosis M47.816 Primary osteoarthritis involving multiple joints M89.49 Osteoarthritis location: multiple joints Osteoarthritis type: primary Vitamin D deficiency E55.9 Spastic neurogenic bladder N31.8 Glaucoma of both eyes, unspecified glaucoma type H40.9 Glaucoma type: unspecified Laterality: bilateral Insomnia, unspecified type G47.00 Insomnia type: unspecified Anxiety F41.9 Episode of recurrent major depressive disorder, unspecified depression episode severity F33.9 Depression Type: major depressive disorder Major depression recurrence: recurrent Active/Remission status: currently active Major depression episode severity: unspecified Obesity (BMI 30-39.9) E66.9 Osteoporosis screening Z13.820 Additional Codes PHQ-9 - 26250 - PHQ-9 Billing: Yes ([id number]) Assessment & Plan Assessment & Plan (1) Annual physical exam: Code(s): Z00.00 - Encounter for general adult medical examination without abnormal findings Category: Medical Plan: Results of her labs done a few days ago reviewed and discussed with patient and her daughter She had her last annual mammogram done last month on 01/17/2025 She had her repeat colonoscopy last done with Dr. Montiel in 04/2023 - she will be due for repeat colonoscopy in 7 to 10 years if in good health She has never had BMD done in the past, as far as her daughter can recall She also no longer keeps up with her yearly gynecology exam and pap smear, based on her age (2) Type 2 diabetes mellitus with diabetic polyneuropathy: Comment: insulin pump-average glucose 166/last A1C 6.2% Code(s): E11.42 - Type 2 diabetes mellitus with diabetic polyneuropathy Category: Medical Qualifiers: Diabetes mellitus intermediate insulin use: with exterminator helper termite use Qualified Code(s): E11.42 - Type 2 diabetes mellitus with diabetic polyneuropathy; Z79.4 - director long term care (current) use of insulin Plan: Her HgbA1c was at 6.8% on her labs done a few days ago (was at 6.1% back in June 2024) - goal is at least <7.0% Reinforced diabetic diet Continue Humalog U-100 0 to 76 units SQ daily via her Omnipod (insulin pump) and Trulicity 0.75 mg SQ once a week Follow up with endocrinology (Dr. Velazquez) as scheduled (3) Diabetic 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 type 2 diabetes mellitus: Code(s): E11.319 - Type 2 diabetes mellitus with unspecified diabetic retinopathy without macular edema Category: Medical Qualifiers: Diabetic retinopathy severity: with moderate nonproliferative retinopathy Diabetes mellitus macular edema: without macular edema Laterality: bilateral Qualified Code(s): E11.3393 - Type 2 diabetes mellitus with moderate nonproliferative diabetic retinopathy without macular edema, bilateral Plan: Reinforced strict diabetes control to help slow down disease progression Follow up with ophthalmology as scheduled (4) Pure hypercholesterolemia: Code(s): E78.00 - Pure hypercholesterolemia, unspecified Category: Medical Plan: Results of her labs done a few days ago reviewed and discussed with patient and her daughter Reinforced low cholesterol diet Continue Rosuvastatin 40 mg QD Will recheck her labs and fasting lipids in 4 months for follow up (5) Migraine: Code(s): G43.909 - Migraine, unspecified, not intractable, without status migrainosus Category: Medical Qualifiers: Migraine type: unspecified Status migrainosus presence: without status migrainosus Intractability: not intractable Qualified Code(s): G43.909 - Migraine, unspecified, not intractable, without status migrainosus Plan: Continue Qulipta 30 mg QD - her headaches have been well-controlled on her current Rx Follow up with neurology as scheduled (6) Dementia 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: Comment: Frontotemporal dementia Code(s): F02.81 - Dementia in other diseases classified elsewhere, unspecified severity, with behavioral disturbance Category: Medical Plan: Continue Donepezil 10 mg QD Follow up with neurology as scheduled (7) GERD (gastroesophageal reflux disease): Code(s): K21.9 - Gastro-esophageal reflux disease without esophagitis Category: Medical Qualifiers: Esophagitis presence: without esophagitis Qualified Code(s): K21.9 - Gastro-esophageal reflux disease without esophagitis Plan: Dietary restrictions reinforced Continue Rabeprazole 20 mg BID and Simethicone 180 mg QID PRN (8) Chronic idiopathic constipation: Code(s): K59.04 - Chronic idiopathic constipation Category: Medical Plan: Have again encouraged increased oral fluids and dietary fiber Continue Trulance 3 mg QD, Fiber Therapy 1000 mg QD, Colace 100 mg QD PRN and Bisacodyl 10 mg Q HS PRN Follow up with GI as scheduled (9) Elevated LFTs: Code(s): R79.89 - Other specified abnormal findings of blood chemistry Category: Medical Plan: Her LFTs were still slightly elevated on her recent labs - is most likely related to her weight Will continue to monitor her LFTs regularly (10) Acquired hypothyroidism: Code(s): E03.9 - Hypothyroidism, unspecified Category: Medical Plan: Her TFTs were normal on her recent labs Continue Levothyroxine 125 mcg QD (11) Allergic rhinitis: Code(s): J30.9 - Allergic rhinitis, unspecified Category: Medical Qualifiers: Allergic rhinitis trigger: unspecified Allergic rhinitis seasonality: unspecified Qualified Code(s): J30.9 - Allergic rhinitis, unspecified Plan: Continue Fluticasone 50 mcg nasal spray QD PRN (12) Diffuse idiopathic skeletal hyperostosis of cervical spine: Code(s): M48.12 - Ankylosing hyperostosis [[place]], cervical region Category: Medical Plan: Cervical spine CT done back in 2019 revealed (+) diffuse idiopathic skeletal hyperostosis She was on Tramadol 50 mg Q HS PRN although she has not taken this in a while now as it was not helping She is reportedly doing okay on Gabapentin 300 mg TID at present Follow up with pain management as scheduled (13) Lumbar spondylosis: Code(s): M47.816 - Spondylosis without myelopathy or radiculopathy, lumbar region Category: Medical Plan: Reinforced activity and weight-lifting restrictions Gabapentin also reportedly helps with her low back pain (14) Osteoarthritis: Code(s): M19.90 - Unspecified osteoarthritis, unspecified site Category: Medical Qualifiers: Osteoarthritis location: multiple joints Osteoarthritis type: primary Qualified Code(s): M89.49 - Other hypertrophic osteoarthropathy, multiple sites Plan: Involves multiple joints - have advised patient's daughter that her recent increasing knee pains are also likely due to OA Patient has been using OTC pain patches PRN and OTC Tylenol PRN although she has been cautioned against taking too much Tylenol due to her elevated LFTs in the past Will consider referral to orthopedics if her joint symptoms/pain get worse (15) Vitamin D deficiency: Code(s): E55.9 - Vitamin D deficiency, unspecified Category: Medical Plan: Corrected - continue Vitamin D3 125 mcg QD (16) Spastic neurogenic bladder: Code(s): N31.8 - Other neuromuscular dysfunction of bladder Category: Medical Plan: Continue Myrbetriq ER 50 mg QD Patient has failed multiple other Rx and urology has reportedly considered injecting Botox into her urinary bladder muscles to help control her symptoms better if Rx are no longer helping Follow up with urology as scheduled (17) Glaucoma: Code(s): H40.9 - Unspecified glaucoma Category: Medical Qualifiers: Glaucoma type: unspecified Laterality: bilateral Qualified Code(s): H40.9 - Unspecified glaucoma Plan: S/P left eye surgery last year Continue Dorzolamide-Timolol 22.3-6.8 mg/ml 1 drop to both eyes BID and Vyzulta 0.024% 1 drop into both eyes Q HS She is also on Xiidra 5% 1 drop to eye BID for dry eyes Follow up with [facility] as scheduled (18) Insomnia: Code(s): G47.00 - Insomnia, unspecified Category: Medical Qualifiers: Insomnia type: unspecified Qualified Code(s): G47.00 - Insomnia, unspecified Plan: Sleep hygiene reinforced Continue Melatonin 6 mg Q HS PRN Mirtazapine and Quetiapine also helps with her sleep at night (19) Anxiety: Code(s): F41.9 - Anxiety disorder, unspecified Category: Medical Plan: Continue Hydroxyzine 25 mg TID PRN and Clonazepam 1 mg Q HS (20) Depression: Code(s): F32.9 - Major depressive disorder, single episode, unspecified Category: Medical Qualifiers: Depression Type: major depressive disorder Major depression recurrence: recurrent Active/Remission status: currently active Major depression episode severity: unspecified Qualified Code(s): F33.9 - Major depressive disorder, recurrent, unspecified Plan: Continue Fluoxetine 20 mg BID, Mirtazapine 30 mg Q HS and Quetiapine 75 mg Q HS Follow up with psychiatry as scheduled (21) Obesity (BMI 30-39.9): Code(s): E66.9 - Obesity, unspecified Category: Medical Plan: Reinforced diet; exercise and weight loss are not realistic in her case given her dementia and multiple medical and physical comorbidities (22) Osteoporosis screening: Code(s): Z13.820 - Encounter for screening for osteoporosis Category: Medical Plan: Patient has not had a bone density done in a few years now Will send patient for BMD for osteoporosis screening Plan Follow up as scheduled in April 2025 Orders: Orders XR DEXA axial skeleton 02/28/25 Z78.0 - Asymptomatic menopausal state Complete Blood Count Auto Diff 04/18/25 D64.9 - Anemia, unspecified Comprehensive [place]. Panel Fast 04/18/25 E78.00 - Pure hypercholesterolemia, unspecified Lipid Panel 04/18/25 E78.00 - Pure hypercholesterolemia, unspecified Microalbumin, Random (w Creat) 04/18/25 E11.9 - Type 2 diabetes mellitus without 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s Hemoglobin A1c 04/18/25 E11.9 - Type 2 diabetes mellitus without 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s Free T4 (Free Thyroxine) 04/18/25 E03.9 - Hypothyroidism, unspecified Thyroid Stimulating Hormone 04/18/25 E03.9 - Hypothyroidism, unspecified UA CC w/rflx Micro + Cult 04/18/25 R30.0 - Dysuria Vitamin B12 and Folate 04/18/25 E53.8 - Deficiency of other specified B group vitamins Vitamin D 25-OH Total 04/18/25 E55.9 - Vitamin D deficiency, unspecified
--- OUTSIDE RECORDS SUMMARY | 2025-02-28 13:55 | XMS_ITS ---
Author Name Worthington LOZENGE MAKER,RAILROAD REPAIRER,FN P,ENGINEERING MANAGER, Chasidy Address [address] [place] [id number] Phone [phone] [facility] [employer] [facility] Care Team Providers Care Note Specialist Name Role Phone Chasidy Worthington Unavailable [phone] VANITA MOLINA Unavailable [phone] TRIP GOETZ Unavailable [phone] MYAH ELDER Unavailable [phone] Elijah Hunter Unavailable [phone] DEVIN ESTRELLA Unavailable [phone] XOCHITL TAVAREZ Unavailable [phone] Leijajanuary Unavailable [phone] Neil Velazquez Unavailable [phone] Reason for Referral Not Available Allergies, adverse [...] AT BEDTIME 2022 No Data Available Nystatin [id number] UNIT/GM Crm APPLY TO AFF ECTED AREA [...] 2023-02-24 2024-01-30 BD UF MICRO PEN NEEDLE [id number] DIRECTED INJECTS 4 TIMES A DAY 2023-03-19 [...] Active 2024-01-06 N/A Other problems related to [facility] facilities and other health care Active 2024-12-13 N/A Encounters Encounters Type Facility Date of Service Diagnosis/Co mplaint Pain Assessment - NO pain present (1126F) [facility] [place] Pain Assessment - NO pain present (1126F) [facility] [place] Pain Assessment - NO pain present (1126F) [facility] [place] Pain Assessment - NO pain present (1126F) [facility] [place] Pain Assessment - NO pain present (1126F) [facility] [place] Pain Assessment - NO pain present (1126F) [facility] [place] Pain Assessment - NO pain present (1126F) [facility] [place] Pain Assessment - NO pain present (1126F) [facility] [place] Pain Assessment - NO pain present (1126F) [facility] [place] Presence of insulin pump (external) (internal)Migraine, unspecified, not intractable, without status migrainosusType 2 diabetes mellitus with other specified 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Hyperlipidemia, unspecifiedUnspecified dementia without behavioral disturbanceOveractive bladderObesity, unspecifiedMajor depressive disorder, single episode, unspecifiedAnxiety disorder, unspecified Estab. patient 30-39min; chronic exacerbation, 2 stable chronic or 1 acute illness add add modifier 95 for video, (do not use for phone, instead use 25963-19) [facility] [place] Migraine, unspecified, not intractable, without status migrainosusType 2 diabetes mellitus with other specified 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Hyperlipidemia, unspecifiedUnspecified dementia without behavioral disturbanceMajor depressive disorder, recurrent, moderateOveractive bladderObesity, unspecifiedAnxiety disorder, unspecified Estab. patient 30-39min; chronic exacerbation, 2 stable chronic or 1 acute illness add add modifier 95 for video, (do not use for phone, instead use 37164-10) [facility] [place] Estab. patient 30-39min; chronic exacerbation, 2 stable chronic or 1 acute illness add add modifier 95 for video, (do not use for phone, instead use 51793-84) [facility] [place] Estab. patient 30-39min; chronic exacerbation, 2 stable chronic or 1 acute illness add add modifier 95 for video, (do not use for phone, instead use 97690-51) [facility] [place] Estab. patient 30-39min; chronic exacerbation, 2 stable chronic or 1 acute illness add add modifier 95 for video, (do not use for phone, instead use 24314-76) [facility] [place] Estab. patient 30-39min; chronic exacerbation, 2 stable chronic or 1 acute illness add add modifier 95 for video, (do not use for phone, instead use 14384-08) [facility] [place] Estab. patient 30-39min; chronic exacerbation, 2 stable chronic or 1 acute illness add add modifier 95 for video, (do not use for phone, instead use 74392-17) [facility] [place] Estab. patient 30-39min; chronic exacerbation, 2 stable chronic or 1 acute illness add add modifier 95 for video, (do not use for phone, instead use 61607-40) [facility] [place] Estab. patient 30-39min; chronic exacerbation, 2 stable chronic or 1 acute illness add add modifier 95 for video, (do not use for phone, instead use 67682-28) [facility] [place] Estab. patient 30-39min; chronic exacerbation, 2 stable chronic or 1 acute illness add add modifier 95 for video, (do not use for phone, instead use 02042-32) [facility] [place] Estab. patient 30-39min; chronic exacerbation, 2 stable chronic or 1 acute illness add add modifier 95 for video, (do not use for phone, instead use 34229-96) [facility] [place]/2024 Migraine, unspecified, not [...] (do not use for phone, instead use 96942-22) [facility] [place] Estab. patient 30-39min; chronic exacerbation, 2 stable chronic or 1 acute illness add add modifier 95 for video, (do not use for phone, instead use 29502-35) [facility] [place] Estab. patient 30-39min; chronic exacerbation, 2 stable chronic or 1 acute illness add add modifier 95 for video, (do not use for phone, instead use 16122-96) [facility] [place] Estab. patient 30-39min; chronic exacerbation, 2 stable chronic or 1 acute illness add add modifier 95 for video, (do not use for phone, instead use 62371-34) [facility] [place] Estab. patient 30-39min; chronic exacerbation, 2 stable chronic or 1 acute illness add add modifier 95 for video, (do not use for phone, instead use 76882-20) [facility] [place] Estab. patient 30-39min; chronic exacerbation, 2 stable chronic or 1 acute illness add add modifier 95 for video, (do not use for phone, instead use 07035-80) [facility] [place] Estab. patient 30-39min; chronic exacerbation, 2 stable chronic or 1 acute illness add add modifier 95 for video, (do not use for phone, instead use 60497-83) [facility] [place] Estab. patient 30-39min; chronic exacerbation, 2 stable chronic or 1 acute illness add add modifier 95 for video, (do not use for phone, instead use 32230-81) [facility] [place] Estab. patient 30-39min; chronic exacerbation, 2 stable chronic or 1 acute illness add add modifier 95 for video, (do not use for phone, instead use 09675-23) [facility] [place] Estab. patient 20-29min; 1 stable chronic or 2 minor; add add modifier 95 for video, modifier 93 for phone [facility] [place]/2024 Migraine, unspecified, not intractable, without status [...] 95 for video, modifier 93 for phone [facility] [place]13/20[place] Estab. patient 20-29min; 1 stable chronic or 2 minor; add add modifier 95 for video, modifier 93 for phone [facility] [place] 12/13/20[place] Estab. patient 20-29min; 1 stable chronic or 2 minor; add add modifier 95 for video, modifier 93 for phone [facility] [place] 12/13/2024 Estab. patient 20-29min; 1 stable chronic or 2 minor; add add modifier 95 for video, modifier 93 for phone [facility] [place] 12/13/2024 Estab. patient 20-29min; 1 stable chronic or 2 minor; add add modifier 95 for video, modifier 93 for phone [facility] [place] 12/13/2024 Estab. patient 20-29min; 1 stable chronic or 2 minor; add add modifier 95 for video, modifier 93 for phone [facility] [place] 12/13/2024 Vital Signs Date of Collection Vitals [...] Time Current Smoking Status Never smoker 2025-02-10 9 Sex Female Gender identity Woman History of [...] (do not use for phone, instead use 46807-60) [id number] 2022-08-13 No Data Available No Data Availa ble Estab. patient 30-39min; chronic exacerbation, 2 stable chronic or 1 acute illness add add modifier 95 for video, (do not use for phone, instead use 88586-83) [id number] 2023-05-22 No Data Available No Data Availa [...] (do not use for phone, instead use 65573-48) 40988 2024-01-30 No Data Available No Data Availa [...] 95 for video, modifier 93 for phone [id number] 2024-12-13 No Data Available No Data Availa [...] mellitus ty pe 2, 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, on [facility] insulin pumpMigrainesHyperlipidemia associated with type 2 diabetes [...] education needs that may arise.Has omnipod insulin [id number] 7.7% last monthBlood sugar varies, since adding [...] arise.Emgality monthlyNeurology - Dr. Magallanes omnipod insulin [id number] 7.7% last monthBlood sugar varies, since adding [...] Dr. Padilla, Lantus, Humalog Has omnipod insulin [id number] 7.7% Monitor BG routinely, low carb diet, [...] present (1126F)Continue to see PCP. Follow-up with [facility] as needed for any acute or disease education needs that may arise.StableQuilipta, Emgality Monitor for symptoms of migraines, continue taking medications, and continue f/u care with Neurology - Dr. Molina12/13/24 : Continue current treatment plan as directed. Had a f/u with Neurology on 12/09/24.StableRosuvastatin, Lantus, Humalog Has omnipod insulin [id number] 7.7% Monitor BG routinely, low carb diet, [...] Social history. 2024-12-13 <add details of Adva wae Care Planning conversation using .Full Code 2024-12-13 Most recent hospital stay(s) or ER visit(s) and precipitating factors: Denies 2024-12-13 Open HEDIS Measure milad san: Reviewed
== END 2025-02-28 15:06 | disposition home or self-care (01) ==
LOC: HO.HMCH 13:51
PROVIDERS: PCP Internal Medicine; Visit Provider Internal Medicine
DX: Z00.00 Encounter for general adult medical examination without abnormal findings (principal); E11.42 Type 2 diabetes mellitus with diabetic polyneuropathy; Z79.4 Long term (current) use of insulin; E11.3393 Type 2 diabetes mellitus with moderate nonproliferative diabetic retinopathy without macular edema, bilateral; E78.00 Pure hypercholesterolemia, unspecified; G43.909 Migraine, unspecified, not intractable, without status migrainosus; F02.81 Dementia in other diseases classified elsewhere, unspecified severity, with behavioral disturbance; K21.9 Gastro-esophageal reflux disease without esophagitis; K59.04 Chronic idiopathic constipation; R79.89 Other specified abnormal findings of blood chemistry; E03.9 Hypothyroidism, unspecified; J30.9 Allergic rhinitis, unspecified; M48.12 Ankylosing hyperostosis [Forestier], cervical region; M47.816 Spondylosis without myelopathy or radiculopathy, lumbar region; M89.49 Other hypertrophic osteoarthropathy, multiple sites; E55.9 Vitamin D deficiency, unspecified; N31.8 Other neuromuscular dysfunction of bladder; H40.9 Unspecified glaucoma; G47.00 Insomnia, unspecified; F41.9 Anxiety disorder, unspecified

== ENCOUNTER → 2025-02-28 13:50 | Outpatient (BNVA) | payer OTHER, SELFPAY | PROVIDERS: PCP Internal Medicine; Visit Provider Internal Medicine | DX: Z00.00 Encounter for general adult medical examination without abnormal findings (principal); E11.42 Type 2 diabetes mellitus with diabetic polyneuropathy; Z79.4 Long term (current) use of insulin; E11.3393 Type 2 diabetes mellitus with moderate nonproliferative diabetic retinopathy without macular edema, bilateral; E78.00 Pure hypercholesterolemia, unspecified; G43.909 Migraine, unspecified, not intractable, without status migrainosus; K21.9 Gastro-esophageal reflux disease without esophagitis; K59.04 Chronic idiopathic constipation; R79.89 Other specified abnormal findings of blood chemistry; E03.9 Hypothyroidism, unspecified; M48.12 Ankylosing hyperostosis [Forestier], cervical region; M47.816 Spondylosis without myelopathy or radiculopathy, lumbar region; M89.49 Other hypertrophic osteoarthropathy, multiple sites; J30.9 Allergic rhinitis, unspecified; E55.9 Vitamin D deficiency, unspecified; N31.8 Other neuromuscular dysfunction of bladder; F33.9 Major depressive disorder, recurrent, unspecified; E66.9 Obesity, unspecified; Z68.28 Body mass index [BMI] 28.0-28.9, adult; Z71.3 Dietary counseling and surveillance | CPT/HCPCS: 96127; 99397 ==

== ENCOUNTER 2025-03-01 13:33 | Outpatient (AMB) | payer OTHER, SELFPAY ==
--- NOTE | 2025-03-01 13:58 | A.OFFVIS_ITS ---
Intake Intake Visit Reasons: set up Dexcom G7 Reprographics Associate Required: Yes Reprographics Associate Language: Presentation Designer Name: Mary her daughter Accompanied by: Daughter Allergies francisco Allergy (Severe, Verified 02/28/25 14:38) Rash Penicillins Allergy (Intermediate, Verified 02/28/25 14:38) RASH/HIVES HPI Comprehensive Diabetes Asmnt Most Recent Diabetes Results: Microalb/Creat Ratio 10.8 ug/mg cr (<30) 02/25/25 Cholesterol 108 mg/dL (<200) 02/25/25 HDL Cholesterol 43 mg/dL (>40) 02/25/25 Triglycerides 138 mg/dL (<150) 02/25/25 Creatinine 0.74 mg/dL (0.5-1.4) 02/25/25 Blood Urea Nitrogen 17 mg/dL (9-16) H 02/25/25 Sodium 143 mmol/L (135-145) 02/25/25 Potassium 4.5 mmol/L (3.3-5.1) 02/25/25 Chloride 106 mmol/L (96-108) 02/25/25 Carbon Dioxide 30 mmol/L (22-29) H 02/25/25 Calcium 9.6 mg/dL (8.4-10.2) 02/25/25 AST 45 U/L (5-31) H 02/25/25 ALT 43 U/L (0-31) H 02/25/25 Total Protein 6.8 g/dL (6.5-8.0) 02/25/25 Albumin 3.8 g/dL (3.5-5.0) 02/25/25 [facility] Medical History (Updated 03/01/25 @ 06:10 by Elijah Hunter MD) Elevated LFTs Type 2 diabetes mellitus with diabetic polyneuropathy Abdominal pain Simple ovarian cyst Diabetes type 2, uncontrolled Overactive bladder Diabetes mellitus Urge incontinence of urine Uninhibited neurogenic bladder Delayed gastric emptying Type 2 diabetes mellitus 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, with exterminator current use of insulin pump Type 2 diabetes mellitus 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 Nausea and vomiting Sinusitis History of stroke Colon cancer screening Right ankle swelling Cellulitis of right lower leg Swelling of right lower extremity Left leg pain Left ankle sprain Ankle fracture, left Chronic pain syndrome Dementia 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 Diabetic neuropathy UTI (urinary tract infection) Insomnia Glaucoma Migraine Acquired hypothyroidism Hearing impairment CVA (cerebral vascular accident) Blind left eye Localized swelling, mass and lump, neck Urinary tract infection with pyuria Elevated liver enzymes Depression Anxiety Urinary incontinence in female Dementia Osteoarthritis Lumbar spondylosis Pure hypercholesterolemia Pain of right thumb Allergic rhinitis Hypertension Obesity (BMI 30-39.9) Vitamin D deficiency Dyslipidemia Diabetic polyneuropathy associated with type 2 diabetes mellitus Diabetic 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 type 2 diabetes mellitus FPC (current) use of insulin Right sided abdominal pain Dizziness and giddiness Orthostatic hypotension Charmaine albicans infection Surgical History (Updated 02/28/25 @ 14:40 by Elijah Hunter MD) History of carpal tunnel release History of pubovaginal sling Hx of eye surgery Hx of cystoscopy Hx of hysterectomy Hx of cholecystectomy History of esophagogastroduodenoscopy (EGD) Hx of colonoscopy Family History Father Diabetes Mother Heart problem Brother Diabetes Social History Housing: Apartment Are you a primary career guidance counselor to a significant other at home: No Do you presently have visiting nurse or other home services: No Alcohol intake: never Patient Tobacco Use Status: Never used Tobacco e-Cigarette/Vaping Use: Never Used Second Hand Smoke Exposure: No service: No Current occupational status: disabled Gender identity: Female Cognitive needs: Yes (Cane, walker) Hearing needs: No Vision needs: Yes (Glasses) Female Reproductive History Menstrual Age of Menarche: 10 Assessment & Plan Assessment & Plan (1) Diabetic 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 type 2 diabetes mellitus: Code(s): E11.319 - Type 2 diabetes mellitus with unspecified diabetic retinopathy without macular edema Qualifiers: Diabetic retinopathy severity: with moderate nonproliferative r etinopathy Diabetes mellitus macular edema: without macular edema Laterality: bilateral Qualified Code(s): E11.3393 - Type 2 diabetes mellitus with moderate nonproliferative diabetic retinopathy without macular edema, bilateral Plan: Patient at visit to set up an insert Dexcom G7 with Omnipod Patient did not bring insulin or new pods to today's visit, we were unable to connect Dexcom G7 sensor to Omnipod 5 Patient will return on 03/03 for Omnipod connections Instructed patient sensors water proof you can shower, or swim do not submerge sensor in water for over 30 minutes Is sensor falls off cannot put back in you need to replace sensor, customer service number given to patient for sensor replacement Sensor code:[id number] Sensor placed on the Back of Right arm Patient instructed that when Dexcom G6 sensor expires we will not be able to connect G7 until next pods change Reviewed with patient's daughter how to manually enter glucose numbers in 2 Omnipod 5 field radio technician for bolusing Patient left visit with sensor in warmup Reviewed how to interpret trend arrows Discussed lag time between finger stick and sensor data.? Instructed patient the importance of having blood glucometer for backup testing if needed Reviewed delay of CGM from fingersticks Reminded Pt that if symptoms do not match sensor still needs to check fingersticks. Portions of this note were created using voice recognition software, please e xcuse any words or phrases that may have been misinterpreted. Coding Level of Care Code Est Pt Level 1 (13884) Diagnoses 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 edema associated with type 2 diabetes mellitus E11.3393 Diabetic retinopathy severity: with moderate nonproliferative retinopathy Diabetes mellitus macular edema: without macular edema Laterality: bilateral
--- OUTSIDE RECORDS SUMMARY | 2025-03-01 14:46 | XMS_ITS ---
Author Name Worthington BAG WORKER,JINRIKSHA DRIVER,FN P,PRODUCTION CONTROL PLANNER, Chasidy Address [address] [place] [address] Phone [phone] [facility] Care Team Providers Care Heliotherapist Name Role Phone Chasidy Worthington Unavailable [phone] VANITA MOLINA Unavailable [phone] TRIP GOETZ Unavailable [phone] MYAH ELDER Unavailable [phone] Elijah Hunter Unavailable [phone] DEVIN ESTRELLA Unavailable [phone] XOCHITL TAVAERZ Unavailable [phone] Leijajanuary Unavailable [phone] Neil Velazquez Unavailable [phone] Reason for Referral Not Available Allergies, adverse [...] AT BEDTIME 2022 No Data Available Nystatin [id number] UNIT/GM Crm APPLY TO AFF ECTED AREA [...] 2023-02-24 2024-01-30 BD UF MICRO PEN NEEDLE [id number] DIRECTED INJECTS 4 TIMES A DAY 2023-03-19 [...] Active 2024-01-06 N/A Other problems related to [facility] facilities and other health [...] (do not use for phone, instead use 33601-22) [facility] [place] Migraine, unspecified, not intractable, without status migrainosusType 2 diabetes mellitus with other specified 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Hyperlipidemia, unspecifiedUnspecified dementia without behavioral disturbanceMajor depressive disorder, recurrent, moderateOveractive bladderObesity, unspecifiedAnxiety disorder, unspecified Estab. patient 30-39min; chronic exacerbation, 2 stable chronic or 1 acute illness add add modifier 95 for video, (do not use for phone, instead use 00348-20) [facility] [place] Estab. patient 30-39min; chronic exacerbation, 2 stable chronic or 1 acute illness add add modifier 95 for video, (do not use for phone, instead use 33715-75) [facility] [place] Estab. patient 30-39min; chronic exacerbation, 2 stable chronic or 1 acute illness add add modifier 95 for video, (do not use for phone, instead use 98150-49) [facility] [place] Estab. patient 30-39min; chronic exacerbation, 2 stable chronic or 1 acute illness add add modifier 95 for video, (do not use for phone, instead use 56913-23) [facility] [place] Estab. patient 30-39min; chronic exacerbation, 2 stable chronic or 1 acute illness add add modifier 95 for video, (do not use for phone, instead use 32238-40) [facility] [place] Estab. patient 30-39min; chronic exacerbation, 2 stable chronic or 1 acute illness add add modifier 95 for video, (do not use for phone, instead use 82346-06) [facility] [place] Estab. patient 30-39min; chronic exacerbation, 2 stable chronic or 1 acute illness add add modifier 95 for video, (do not use for phone, instead use 19137-08) [facility] [place] Estab. patient 30-39min; chronic exacerbation, 2 stable chronic or 1 acute illness add add modifier 95 for video, (do not use for phone, instead use 00722-35) [facility] [place] Estab. patient 30-39min; chronic exacerbation, 2 stable chronic or 1 acute illness add add modifier 95 for video, (do not use for phone, instead use 87532-62) [facility] [place] Estab. patient 30-39min; chronic exacerbation, 2 stable chronic or 1 acute illness add add modifier 95 for video, (do not use for phone, instead use 30261-47) [facility] [place] Migraine, unspecified, [...] (do not use for phone, instead use 14601-00) [facility] [place] Estab. patient 30-39min; chronic exacerbation, 2 stable chronic or 1 acute illness add add modifier 95 for video, (do not use for phone, instead use 60367-92) [facility] [place] Estab. patient 30-39min; chronic exacerbation, 2 stable chronic or 1 acute illness add add modifier 95 for video, (do not use for phone, instead use 29680-18) [facility] [place] Estab. patient 30-39min; chronic exacerbation, 2 stable chronic or 1 acute illness add add modifier 95 for video, (do not use for phone, instead use 50724-47) [facility] [place] Estab. patient 30-39min; chronic exacerbation, 2 stable chronic or 1 acute illness add add modifier 95 for video, (do not use for phone, instead use 74377-59) [facility] [place] Estab. patient 30-39min; chronic exacerbation, 2 stable chronic or 1 acute illness add add modifier 95 for video, (do not use for phone, instead use 33109-83) [facility] [place] Estab. patient 30-39min; chronic exacerbation, 2 stable chronic or 1 acute illness add add modifier 95 for video, (do not use for phone, instead use 78743-92) [facility] [place] Estab. patient 30-39min; chronic exacerbation, 2 stable chronic or 1 acute illness add add modifier 95 for video, (do not use for phone, instead use 05544-08) [facility] [place] Estab. patient 30-39min; chronic exacerbation, 2 stable chronic or 1 acute illness add add modifier 95 for video, (do not use for phone, instead use 06285-06) [facility] [place] 01[place] Estab. patient 20-29min; 1 stable chronic or 2 minor; add add modifier 95 for video, modifier 93 for phone [facility] [place] 12/13/2024 Migraine, unspecified, not intractable, without status [...] modifier 93 for phone [facility] [place] 12[place] Estab. patient 20-29min; 1 stable chronic or 2 minor; add add modifier 95 for video, modifier 93 for phone [facility] [place] 12/13/[place] Estab. patient 20-29min; 1 stable chronic or 2 minor; add add modifier 95 for video, modifier 93 for phone [facility] [place] 12/13/20[place] Estab. patient 20-29min; 1 stable chronic or 2 minor; add add modifier 95 for video, modifier 93 for phone [facility] [place] 12/13/[place] Estab. patient 20-29min; 1 stable chronic or 2 minor; add add modifier 95 for video, modifier 93 for phone [facility] [place] 12/13/[place] Estab. patient 20-29min; 1 stable chronic or 2 minor; add add modifier 95 for video, modifier 93 for phone [facility] [place] 12/13/2024 Vital Signs Date of Collection Vitals [...] tive Time Current Smoking Status Never smoker 2025-02-11 0 Sex Female Gender identity Woman History of [...] (do not use for phone, instead use 79134-49) [id number] 2022-08-13 No Data Available No Data Availa ble Estab. patient 30-39min; chronic exacerbation, 2 stable chronic or 1 acute illness add add modifier 95 for video, (do not use for phone, instead use 38180-33) 95329 2023-05-22 No Data Available No Data Availa [...] (do not use for phone, instead use 64231-50) 19546 2024-01-30 No Data Available No Data Availa [...] 95 for video, modifier 93 for phone [id number] 2024-12-13 No Data Available No Data Availa [...] mellitus ty pe 2, 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, on usp insulin pumpMigrainesHyperlipidemia associated with type 2 diabetes [...] education needs that may arise.Has omnipod insulin [id number] 7.7% last monthBlood sugar varies, since adding [...] arise.Emgality monthlyNeurology - Dr. Magallanes omnipod insulin flbaD1Q 7.7% last monthBlood sugar varies, since adding [...] Dr. Padilla, Lantus, Humalog Has omnipod insulin vrgnX1A 7.7% Monitor BG routinely, low carb diet, [...] present (1126F)Continue to see PCP. Follow-up with [facility] as needed for any acute or disease education needs that may arise.StableQuilipta, Emgality Monitor for symptoms of migraines, continue taking medications, and continue f/u care with Neurology - Dr. Molina12/13/24 : Continue current treatment plan as directed. Had a f/u with Neurology on 12/09/24.StableRosuvastatin, Lantus, Humalog Has omnipod insulin kcgqP5G 7.7% Monitor BG routinely, low carb diet, [...] urology. Urology - Dr. Trip Goetz, sees yMah Elder NP at same office at times. [...] Social history. 2024-12-13 <add details of Adva moe Care Planning conversation using .Full Code 2024-12-13 Most recent hospital stay(s) or ER visit(s) and precipitating factors: Denies 2024-12-13 Open HEDIS Measure milad san: Reviewed
== END 2025-03-01 14:01 | disposition home or self-care (01) ==
LOC: HO.ENCR 13:33
PROVIDERS: PCP Internal Medicine; Visit Provider Registered Nurse Diabetes Educator
DX: E11.3393 Type 2 diabetes mellitus with moderate nonproliferative diabetic retinopathy without macular edema, bilateral (principal)

== ENCOUNTER → 2025-03-01 13:33 | Outpatient (BNVA) | payer OTHER, SELFPAY | PROVIDERS: PCP Internal Medicine; Visit Provider Registered Nurse Diabetes Educator | DX: E11.3393 Type 2 diabetes mellitus with moderate nonproliferative diabetic retinopathy without macular edema, bilateral (principal); Z96.41 Presence of insulin pump (external) (internal); Z79.4 Long term (current) use of insulin | CPT/HCPCS: 99211 ==

== ENCOUNTER 2025-03-03 08:37 | Outpatient (AMB) | payer OTHER, SELFPAY ==
--- OUTSIDE RECORDS SUMMARY | 2025-03-03 08:48 | XMS_ITS ---
Author Name Worthington BOAT HOIST OPERATOR,VARNISH FINISHER,FN P,SUPPORT SERVICES COORDINATOR, Chasidy Address [address] [place] [address] Phone [phone] [facility] Care Team Providers Care Drywall Stripper Helper Name Role Phone Chasidy Worthington Unavailable [phone] VANITA MOLINA Unavailable [phone] TRIP GOETZ Unavailable [phone] MYAH ELDER Unavailable [phone] Elijah Hunter Unavailable [phone] DEVIN ESTRELLA Unavailable [phone] XOCHITL TAVAREZ Unavailable [phone] Leijajanuary Unavailable [phone] Neil Velazquez Unavailable [phone] Reason for Referral Not Available Allergies, adverse [...] AT BEDTIME 2022 No Data Available Nystatin 160266 UNIT/GM Crm APPLY TO AFF ECTED AREA [...] 2023-02-24 2024-01-30 BD UF MICRO PEN NEEDLE [id number] DIRECTED INJECTS 4 TIMES A DAY 2023-03-19 [...] Active 2024-01-06 N/A Other problems related to [facility] facilities and other health care Active 2024-12-13 N/A Encounters Encounters Type Facility Date of Service Diagnosis/Co mplaint Pain Assessment - NO pain present (1126F) [facility] [place] Pain Assessment - NO pain present (1126F) [facility] [place] Pain Assessment - NO pain present (1126F) [facility] [place] Pain Assessment - NO pain present (1126F) [facility] [place] Pain Assessment - NO pain present (1126F) [facility] [place] Pain Assessment - NO pain present (1126F) [facility] [place] Pain Assessment - NO pain present (1126F) [facility] [place] Pain Assessment - NO pain present (1126F) [facility] [place] Pain Assessment - NO pain present (1126F) [facility] [place] Presence of insulin pump (external) (internal)Migraine, unspecified, not intractable, without status migrainosusType 2 diabetes mellitus with other specified 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Hyperlipidemia, unspecifiedUnspecified dementia without behavioral disturbanceOveractive bladderObesity, unspecifiedMajor depressive disorder, single episode, unspecifiedAnxiety disorder, unspecified Estab. patient 30-39min; chronic exacerbation, 2 stable chronic or 1 acute illness add add modifier 95 for video, (do not use for phone, instead use 54207-99) [facility] [place]20[place] Migraine, unspecified, not intractable, without status migrainosusType 2 diabetes mellitus with other specified 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Hyperlipidemia, unspecifiedUnspecified dementia without behavioral disturbanceMajor depressive disorder, recurrent, moderateOveractive bladderObesity, unspecifiedAnxiety disorder, unspecified Estab. patient 30-39min; chronic exacerbation, 2 stable chronic or 1 acute illness add add modifier 95 for video, (do not use for phone, instead use 95739-01) [facility] [place] Estab. patient 30-39min; chronic exacerbation, 2 stable chronic or 1 acute illness add add modifier 95 for video, (do not use for phone, instead use 09239-30) [facility] [place] Estab. patient 30-39min; chronic exacerbation, 2 stable chronic or 1 acute illness add add modifier 95 for video, (do not use for phone, instead use 69524-04) [facility] [place] Estab. patient 30-39min; chronic exacerbation, 2 stable chronic or 1 acute illness add add modifier 95 for video, (do not use for phone, instead use 04426-84) [facility] [place] Estab. patient 30-39min; chronic exacerbation, 2 stable chronic or 1 acute illness add add modifier 95 for video, (do not use for phone, instead use 95048-45) [facility] [place] Estab. patient 30-39min; chronic exacerbation, 2 stable chronic or 1 acute illness add add modifier 95 for video, (do not use for phone, instead use 36899-85) [facility] [place] Estab. patient 30-39min; chronic exacerbation, 2 stable chronic or 1 acute illness add add modifier 95 for video, (do not use for phone, instead use 06386-81) [facility] [place] Estab. patient 30-39min; chronic exacerbation, 2 stable chronic or 1 acute illness add add modifier 95 for video, (do not use for phone, instead use 73825-95) [facility] [place] Estab. patient 30-39min; chronic exacerbation, 2 stable chronic or 1 acute illness add add modifier 95 for video, (do not use for phone, instead use 73891-86) [facility] [place] 05[place] Estab. patient 30-39min; chronic exacerbation, 2 stable chronic or 1 acute illness add add modifier 95 for video, (do not use for phone, instead use 43231-55) [facility] [place] Migraine, unspecified, not intractable, [...] (do not use for phone, instead use 98749-70) [facility] [place] Estab. patient 30-39min; chronic exacerbation, 2 stable chronic or 1 acute illness add add modifier 95 for video, (do not use for phone, instead use 07457-36) [facility] [place] Estab. patient 30-39min; chronic exacerbation, 2 stable chronic or 1 acute illness add add modifier 95 for video, (do not use for phone, instead use 44484-46) [facility] [place] Estab. patient 30-39min; chronic exacerbation, 2 stable chronic or 1 acute illness add add modifier 95 for video, (do not use for phone, instead use 27730-48) [facility] [place] Estab. patient 30-39min; chronic exacerbation, 2 stable chronic or 1 acute illness add add modifier 95 for video, (do not use for phone, instead use 98506-79) [facility] [place] Estab. patient 30-39min; chronic exacerbation, 2 stable chronic or 1 acute illness add add modifier 95 for video, (do not use for phone, instead use 00460-42) [facility] [place] Estab. patient 30-39min; chronic exacerbation, 2 stable chronic or 1 acute illness add add modifier 95 for video, (do not use for phone, instead use 39612-16) [facility] [place] Estab. patient 30-39min; chronic exacerbation, 2 stable chronic or 1 acute illness add add modifier 95 for video, (do not use for phone, instead use 03414-39) [facility] [place] 01[place] Estab. patient 30-39min; chronic exacerbation, 2 stable chronic or 1 acute illness add add modifier 95 for video, (do not use for phone, instead use 42687-01) [facility] [place] 01/[place] Estab. patient 20-29min; 1 stable chronic or 2 minor; add add modifier 95 for video, modifier 93 for phone [facility] [place] 12/13/2024 Migraine, unspecified, not intractable, [...] 95 for video, modifier 93 for phone [facility] [place] 12/13/2024 Estab. patient 20-29min; 1 stable chronic or 2 minor; add add modifier 95 for video, modifier 93 for phone [facility] [place] 12/13/2024 Estab. patient 20-29min; 1 stable chronic or 2 minor; add add modifier 95 for video, modifier 93 for phone [facility] [place] 12/13/2024 Estab. patient 20-29min; 1 stable chronic or 2 minor; add add modifier 95 for video, modifier 93 for phone [facility] [place] 12/13/2024 Estab. patient 20-29min; 1 stable chronic or 2 minor; add add modifier 95 for video, modifier 93 for phone [facility] [place] 12/13/2024 Estab. patient 20-29min; 1 stable chronic or 2 minor; add add modifier 95 for video, modifier 93 for phone [facility] [place] 12/13/2024 Vital Signs Date of [...] Time Current Smoking Status Never smoker 2025-02-11 2 Sex Female Gender identity Woman History of [...] (do not use for phone, instead use 59717-61) 47786 2022-08-13 No Data Available No Data Availa ble Estab. patient 30-39min; chronic exacerbation, 2 stable chronic or 1 acute illness add add modifier 95 for video, (do not use for phone, instead use 82123-08) 75042 2023-05-22 No Data Available No Data Availa [...] (do not use for phone, instead use 97737-86) 96160 2024-01-30 No Data Available No Data Availa [...] 95 for video, modifier 93 for phone 99835 2024-12-13 No Data Available No Data Availa [...] mellitus ty pe 2, 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, on skilled nursing insulin pumpMigrainesHyperlipidemia associated with type 2 diabetes [...] education needs that may arise.Has omnipod insulin bkodX6C 7.7% last monthBlood sugar varies, since adding [...] arise.Emgality monthlyNeurology - Dr. Magallanes omnipod insulin cixuQ1K 7.7% last monthBlood sugar varies, since adding [...] Dr. Padilla, Lantus, Humalog Has omnipod insulin dsykJ6C 7.7% Monitor BG routinely, low carb diet, [...] present (1126F)Continue to see PCP. Follow-up with [facility] as needed for any acute or disease education needs that may arise.StableQuilipta, Emgality Monitor for symptoms of migraines, continue taking medications, and continue f/u care with Neurology - Dr. Molina12/13/24 : Continue current treatment plan as directed. Had a f/u with Neurology on 12/09/24.StableRosuvastatin, Lantus, Humalog Has omnipod insulin agdxQ3E 7.7% Monitor BG routinely, low carb diet, [...] Social history. 2024-12-13 <add details of Adva rie Care Planning conversation using .Full Code 2024-12-13 Most recent hospital stay(s) or ER visit(s) and precipitating factors: Denies 2024-12-13 Open HEDIS Measure milad san: Reviewed
--- NOTE | 2025-03-03 08:58 | A.OFFVIS_ITS ---
Intake Intake Visit Reasons: 30 min Aircraft Armament Mechanic Required: Yes Aircraft Armament Mechanic Language: Director Digital Name: Mary Bazan's Daughter Accompanied by: Daughter Allergies francisco Allergy (Severe, Verified 02/28/25 14:38) Rash Penicillins Allergy (Intermediate, Verified 02/28/25 14:38) RASH/HIVES HPI Comprehensive Diabetes Asmnt Most Recent Diabetes Results: Hemoglobin A1c 6.2 % 06/08/20 Microalb/Creat Ratio 10.8 ug/mg cr (<30) 02/25/25 Cholesterol 108 mg/dL (<200) 02/25/25 HDL Cholesterol 43 mg/dL (>40) 02/25/25 Triglycerides 138 mg/dL (<150) 02/25/25 Creatinine 0.74 mg/dL (0.5-1.4) 02/25/25 Blood Urea Nitrogen 17 mg/dL (9-16) H 02/25/25 Sodium 143 mmol/L (135-145) 02/25/25 Potassium 4.5 mmol/L (3.3-5.1) 02/25/25 Chloride 106 mmol/L (96-108) 02/25/25 Carbon Dioxide 30 mmol/L (22-29) H 02/25/25 Calcium 9.6 mg/dL (8.4-10.2) 02/25/25 AST 45 U/L (5-31) H 02/25/25 ALT 43 U/L (0-31) H 02/25/25 Total Protein 6.8 g/dL (6.5-8.0) 02/25/25 Albumin 3.8 g/dL (3.5-5.0) 02/25/25 [facility] Medical History (Updated 03/01/25 @ 06:10 by Elijah Hunter MD) Elevated LFTs Type 2 diabetes mellitus with diabetic polyneuropathy Abdominal pain Simple ovarian cyst Diabetes type 2, uncontrolled Overactive bladder Diabetes mellitus Urge incontinence of urine Uninhibited neurogenic bladder Delayed gastric emptying Type 2 diabetes mellitus 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, with intermediate current use of insulin pump Type 2 diabetes mellitus 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 Nausea and vomiting Sinusitis History of stroke Colon cancer screening Right ankle swelling Cellulitis of right lower leg Swelling of right lower extremity Left leg pain Left ankle sprain Ankle fracture, left Chronic pain syndrome Dementia 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 Diabetic neuropathy UTI (urinary tract infection) Insomnia Glaucoma Migraine Acquired hypothyroidism Hearing impairment CVA (cerebral vascular accident) Blind left eye Localized swelling, mass and lump, neck Urinary tract infection with pyuria Elevated liver enzymes Depression Anxiety Urinary incontinence in female Dementia Osteoarthritis Lumbar spondylosis Pure hypercholesterolemia Pain of right thumb Allergic rhinitis Hypertension Obesity (BMI 30-39.9) Vitamin D deficiency Dyslipidemia Diabetic polyneuropathy associated with type 2 diabetes mellitus Diabetic 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 type 2 diabetes mellitus [facility] (current) use of insulin Right sided abdominal pain Dizziness and giddiness Orthostatic hypotension Charmaine albicans infection Surgical History (Updated 02/28/25 @ 14:40 by Elijah Hunter MD) History of carpal tunnel release History of pubovaginal sling Hx of eye surgery Hx of cystoscopy Hx of hysterectomy Hx of cholecystectomy History of esophagogastroduodenoscopy (EGD) Hx of colonoscopy Family History Father Diabetes Mother Heart problem Brother Diabetes Social History Housing: Apartment Are you a primary client care manager to a significant other at home: No Do you presently have visiting nurse or other home services: No Alcohol intake: never Patient Tobacco Use Status: Never used Tobacco e-Cigarette/Vaping Use: Never Used Second Hand Smoke Exposure: No service: No Current occupational status: disabled Gender identity: Female Cognitive needs: Yes (Cane, walker) Hearing needs: No Vision needs: Yes (Glasses) Female Reproductive History Menstrual Age of Menarche: 10 Assessment & Plan Assessment & Plan (1) Diabetic 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 type 2 diabetes mellitus: Code(s): E11.319 - Type 2 diabetes mellitus with unspecified diabetic retinopathy without macular edema Qualifiers: Diabetic retinopathy severity: with moderate nonproliferative retinopathy Diabetes mellitus macular edema: without macular edema Laterality: bilateral Qualified Code(s): E11.3393 - Type 2 diabetes mellitus with moderate nonproliferative diabetic retinopathy without macular edema, bilateral Plan: Patient presents for pump training for? Omnipod 5 transitioning to Dexcom G7 Patient's last A1c 6.8% on 02/25/25 The following topics were reviewed today: -Dexcom G6 verses Dexcom G7 ??? High Alert: 280 mg/dl ??? Low Alert: 80 mg/dl Instructed patient's daughter how to manage sensor in Omnipod negative restorer Should daughter how to enter serial number and sensor code into negative restorer Patient and her daughter successfully changed Omnipod pods at today's visit Message sent to provider to send prescription for Trulicity 0.75 mg weekly Patient left visit with new pod in G7 sensor in place, sensor can take up to 25 minutes to connect to Omnipod negative restorer Patient daughter stated at visit that patient has reduced food intake since her was placed in long-term care facility. Instructed patient's daughter if patient is experiencing an increase in hypoglycemia, contact clinic for adjustment to insulin pump Remove [employer] G6 baltazar from patient's cell phone Safety information: Importance of a backup plan, for manual injections, proper prescriptions and emergency supplies ketone strips, and rules for testing for ketones Settings verified by clinical document improvement educator, no changes made to patient's insulin pump settings at today's visit Basal rate(s) (units/hour) : ?12 AM to 12 PM 0.45 units / hr 12 PM to 12 AM? 0.5 units / hr Bolus setting Insulin Carbohydrate Ratio (s) 12 AM to 12 AM 1:9 6 PM to 12 AM 1:10 Correction Factor / Sensitivity Factor 12 AM? to 12 AM 1:40 Active Insulin Time:? 4 hours Target(s): ?12 AM? to 12 PM? 120 mg/dL Correct above 120 mg/dL. Coding Level of Care Code Est Pt Level 1 (08135) Diagnoses 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 edema associated with type 2 diabetes mellitus E11.3393 Diabetic retinopathy severity: with moderate nonproliferative retinopathy Diabetes mellitus macular edema: without macular edema Laterality: bilateral
== END 2025-03-03 09:06 | disposition home or self-care (01) ==
LOC: HO.ENCR 08:38
PROVIDERS: PCP Internal Medicine; Visit Provider Registered Nurse Diabetes Educator
DX: E11.3393 Type 2 diabetes mellitus with moderate nonproliferative diabetic retinopathy without macular edema, bilateral (principal)

== ENCOUNTER → 2025-03-03 08:37 | Outpatient (BNVA) | payer OTHER, SELFPAY | PROVIDERS: PCP Internal Medicine; Visit Provider Registered Nurse Diabetes Educator | DX: E11.3393 Type 2 diabetes mellitus with moderate nonproliferative diabetic retinopathy without macular edema, bilateral (principal) | CPT/HCPCS: 99211 ==

== ENCOUNTER 2025-03-16 11:00 | Outpatient (AMB) | payer OTHER, SELFPAY ==
--- NOTE | 2025-03-16 07:19 | A.OFFVIS_ITS ---
Vital Signs 03/16/25 11:08 Height 5 ft 1 in Weight 152 lb 1.903 oz BMI 28.7 BP 114/64 Blood Pressure Location Rt brachial Position Sitting Pulse 88 Pulse Source Pulse Oximeter Pulse Oximetry (%) 98 Oxygen Delivery Method Room Air Intake Visit Reasons: T1DM Intake Note: Patient presents today for a follow-up on Type 2 Diabetes Mellitus, Patient on insulin pump: Last Diabetic eye exam was on: 02/02/2025, [facility] Last Podiatry exam was on: Patient does not see a Partition Assembler Most recent HbA1c: 7.3%, 03/16/2025 Random Glucose- 173 mg/dL, Today Hoisting Engineer Required: Yes Hoisting Engineer Language: Section Forest Fire Warden Services: Hoisting Engineer Offered & Declined Hoisting Engineer Name: DAUGHTER Information Interpreted: non-clinical & clinical Accompanied by: Daughter Allergies francisco Allergy (Severe, Verified 02/28/25 14:38) Rash Penicillins Allergy (Intermediate, Verified 02/28/25 14:38) RASH/HIVES HPI Comments Details: Patient is 69 year old female with DM type 2 diagnosed 2002 who presents for management of diabetes. She was last seen 12/15/24 by myself in more recently by Nidia CARBAJAL 1 month ago at which time she was switched from G6 to G7 sensor. A1C: 03/16/25 7..3% 12/08/24:7 %. A1c end of June was 6.1 % Past medical history:DM2 GERD, depression, hypertension, hyperlipidemia, hypothyroidism. Micro and macrovascular 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s: + neuropathy, +background retinopathy, + nephropathy + microalbumin, no macrovascular disease. Has neuropathy Symptoms reported: occasional numbness, tingling, cramping in lower extremities daughter trims nails and checkd feet daily Has background retinopathy. Last eye examination: 01/2025 Claudia was referred to retinal specialist: f/u every 4-6 months he would like to watch rtinopathy closely Needs eye lift surgery laser treatment to both eyes 2020 No nephropathy 5/2025tb eGFR>60 06/2024 microalbumin 13.0 Macrovascular disease: h/o cva in the past, no known CAD Hypoglycemia: none recent carries sugar source Hyperglycemia: denies urinary frequency, nocturia, polydypsia Humalog via ominipod pump Also on Trulicity mg .75 q.week Dexcom next average glucose: 202 14 day continuous glucose monitor report reviewed TIme in ranges: Twenty % very high (above 250) 34 % high ?(181-250) 46 % in range ?(70-180] 0 % low (69-55) 0 % ?very low (below 54) Interpretation: She is in auto mode only 50% of the time, 22% limited total manual mode 50% She has both the G6 and G7 baltazar on her phone in his recently switched over to G7. G6 was deleted in the office today and she was advised to continue to keep her sensor and pump on the same size Exercise: limited due to balance issues Nutrition - diabetes education: currently sees ISAIES Basal rate(s) (units/hour) : ?12 AM to 12 PM 0.45 units / hr new .55 12 PM to 12 AM? 0.5 units / hr new .65 Bolus setting Insulin Carbohydrate Ratio (s) 12 AM 1:9 6AM 1:12 new 1:11 11:30 1:10 new 1:9 Correction Factor / Sensitivity Factor 12 AM?40 Active Insulin Time:? 4 hours new 3 hr Target(s): ?12 AM? to 12 PM? 120 mg/dL Correct above 120 mg/dL [facility] Medical History (Updated 03/16/25 @ 12:03 by Taylor Russ NP) Elevated LFTs Type 2 diabetes mellitus with diabetic polyneuropathy Abdominal pain Simple ovarian cyst Diabetes type 2, uncontrolled Overactive bladder Diabetes mellitus Urge incontinence of urine Uninhibited neurogenic bladder Delayed gastric emptying Type 2 diabetes mellitus 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, with predatory animal exterminator current use of insulin pump Type 2 diabetes mellitus 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 Nausea and vomiting Sinusitis History of stroke Colon cancer screening Right ankle swelling Cellulitis of right lower leg Swelling of right lower extremity Left leg pain Left ankle sprain Ankle fracture, left Chronic pain syndrome Dementia 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 Diabetic neuropathy UTI (urinary tract infection) Insomnia Glaucoma Migraine Acquired hypothyroidism Hearing impairment CVA (cerebral vascular accident) Blind left eye Localized swelling, mass and lump, neck Urinary tract infection with pyuria Elevated liver enzymes Depression Anxiety Urinary incontinence in female Dementia Osteoarthritis Lumbar spondylosis Pure hypercholesterolemia Pain of right thumb Allergic rhinitis Hypertension Obesity (BMI 30-39.9) Vitamin D deficiency Dyslipidemia Diabetic polyneuropathy associated with type 2 diabetes mellitus Diabetic 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 type 2 diabetes mellitus 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 Right sided abdominal pain Dizziness and giddiness Orthostatic hypotension Charmaine albicans infection Surgical History (Updated 02/28/25 @ 14:40 by Elijah Hunter MD) History of carpal tunnel release History of pubovaginal sling Hx of eye surgery Hx of cystoscopy Hx of hysterectomy Hx of cholecystectomy History of esophagogastroduodenoscopy (EGD) Hx of colonoscopy Family History Father Diabetes Mother Heart problem Brother Diabetes Social History Housing: Apartment Are you a primary caregiver assisted living to a significant other at home: No Do you presently have visiting nurse or other home services: No Alcohol intake: never Patient Tobacco Use Status: Never used Tobacco e-Cigarette/Vaping Use: Never Used Second Hand Smoke Exposure: No service: No Current occupational status: disabled Gender identity: Female Cognitive needs: Yes (Cane, walker) Hearing needs: No Vision needs: Yes (Glasses) Female Reproductive History Menstrual Age of Menarche: 10 Physical Exam Vital Signs: Last Vital Signs Pulse 88 03/16/25 11:08 BP 114/64 03/16/25 11:08 Pulse Ox 98 03/16/25 11:08 Oxygen Delivery Method Room Air 03/16/25 11:08 BMI result Body Mass Index 28.7 Const Other: Absence of Cushingoid features. Absence of acromegalic features. Neck exam reveals nl size thyroid about 15 gms. No thyroid nodules palpable. Heart S1 S2, Reg R/R. No M/R G. Skin exam reveals absence of vitiligo or acanthosis nigricans. No edema Visual exam of foot performed. No ulcerations or open lesions. No inter digit maceration or fissuring. No onychomycosis, no callouses. Sensation intact to monofilament exam. Vibratory sensation is normal with 128 Hz tuning fork. Distal pulses positive Office Procedures Glucose Monitoring Details Details: See HPI 61039 - Glucose monitoring, continuous-physician I&R Procedure code (CPT) selection complete Results AMB Hemoglobin A1c AMB Hemoglobin A1c 7.3 % Last Edit by PETER Cosme on 03/16/25 11:24 Results Reviewed Results Reviewed: Laboratory Last Values Glucose (Clinic) 173 mg/dL (60-115) H 03/16/25 11:11 Hgb A1c (Clinic) 7.3 % (4.0-6.0) H 03/16/25 11:23 Assessment & Plan Assessment & Plan (1) Type 2 diabetes mellitus with diabetic polyneuropathy: Comment: insulin pump Code(s): E11.42 - Type 2 diabetes mellitus with diabetic polyneuropathy Category: Medical Qualifiers: Diabetes mellitus predatory animal exterminator insulin use: with predatory animal exterminator use Qualified Code(s): E11.42 - Type 2 diabetes mellitus with diabetic polyneuropathy; Z79.4 - 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 Plan: 70-year-old type 2 diabetic with retinopathy and neuropathy on an insulin pump along with Trulicity 0.75 weekly. She is being followed by a retinal specialist. Changes were made to her pump see above. She is having difficulty pairing her G7 to her Omnipod. She change from G6 to G7 last month. Today the G6 baltazar was deleted in the should improve pairing ability. She was reminded also to keep the pump on the same size as her sensor. If she continues to have problems with the daughter we will call Dexcom directly Orders: Orders AMB Hemoglobin A1c Today E11.42 - Type 2 diabetes mellitus with diabetic polyneuropathy, Z79.4 - skilled nursing (current) use of insulin AMB Glucose Monitoring Today Z79.4 - 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 Medications: Refilled blood-glucose sensor (Dexcom G7 Sensor device) every 10 days 3 ea 5RF Coding Level of Care Code Est Pt Level 4 (85898) Complex EM visit Add On G2211 Diagnoses Type 2 diabetes mellitus with diabetic polyneuropathy, with long-term current use of insulin E11.42; Z79.4 Diabetes mellitus group home insulin use: with group home use CPT Codes Details - CPT: 45901 - Glucose monitoring, continuous-physician I&R ([id number]) Time Spent (min) 30 Comment Reviewing labs/provider notes, glucose sensor/pump reports, face to face, chart doc
[2025-03-16 11:08] VITALS: BP 114/64; PULSE 88; O2SAT 98; BMI 28.7
[2025-03-16 11:15] LABS: Glucose, Whole Blood 173 mg/dL (60-115)
--- OUTSIDE RECORDS SUMMARY | 2025-03-16 12:11 | XMS_ITS ---
Author Name Worthington CHIEF DEPUTY CLERK/BAILIFF,RFID MANAGER,FN P,ART SALES CONSULTANT, Chasidy Address [address] [place] [id number] Phone [phone] [facility] [employer] [facility] Care Team Providers Care Showcase Trimmer Name Role Phone Chasidy Worthington Unavailable [phone] VANITA MOLINA Unavailable [phone] TRIP GOETZ Unavailable [phone] MYAH ELDER Unavailable [phone] Elijah Hunter Unavailable [phone] DEVIN ESTRELLA Unavailable [phone] XOCHITL TAVAREZ Unavailable [phone] Leijajanuary Unavailable [phone] Neil Velazquez Unavailable [phone] Reason for Referral Not Available Allergies, adverse [...] AT BEDTIME 2022 No Data Available Nystatin 314921 UNIT/GM Crm APPLY TO AFF ECTED AREA [...] 2023-02-24 2024-01-30 BD UF MICRO PEN NEEDLE [id number] DIRECTED INJECTS 4 TIMES A DAY 2023-03-19 [...] List Problem Status Onset Date Resolved Date Synopsis H/O TIA (transient ischemic attack) and stroke Active 2024-01-30 N/A StableAspirinMon itor for s/sx of TIA and continue f/u with PCP. Migraines Active 2022-08-13 N/A StableQuilipta , Emgality Monitor for symptoms of migraines, continue taking medications, and continue f/u care with Neurology - Dr. Molina3/01/04 : Continue current treatment plan as directed. Had a f/u with Neurology on 12/09/24. Dementia with behavioral disturbanceMulti-syst em degeneration of the autonomic nervous system Active 2022-08-13 N/A StableDonepezil, Mirtazepine, QuetiapineDenies safety concerns Monitor for safety, fall risk precautions, MMSE routinely, and continue f/u care with Neurology - Vanita Molina12/13/24 : Continue current treatment plan as directed. Had a f/u with Neurology on 12/09/24. Type 2 diabetes mellitus with hyperlipidemia, diabetic retinopathy without macular edema, diabetic polyneuropathy, long-term current use of insulin Active 2022-08-13 N/A StableRosuvastat in, Lantus, Humalog Has omnipod insulin [id number] 7.7% Monitor BG routinely, low carb diet, exercise as tolerable and continue with PCP and Endocrinology - Neil Kahn12/13/24 : BG this a.m. 105. A1c last month- 5.7 % per daughter's report. Continue current treatment plan as directed. Had a f/u with PCP on 12/07/24. Overactive bladder Active 2022-08-13 N/A Stable Oxybutynin dailyMyrbetriq dailyContinue f/u with PCP and urology. Urology - Dr. Trip Goetz, sees Myah Elder NP at same office at times. 12/13/24 : Continue current treatment plan as directed. Had a f/u with PCP on 12/07/24. 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 Active 2022-08-14 N/A StableClon azepam, Fluoxetine, Hydroxyzine, Melatonin, Mirtazapine, QuetiapineDenies SI/HIDenies therapist. Daughter reports depression and anxiety is controlled well with medicationsContinue taking medication and monitor for worsening depression. 12/13/24 : PHQ2- 2. Continue current treatment plan as directed. Had a f/u with PCP on 12/07/24. Hypothyroidism Active 2024-01-06 N/A StableLevo thyroxineMonitor for hypothyroidism uncontrolled s/sx (eg. cold intolerance) and continue monitoring with PCP.12/13/24 : Continue current treatment plan as directed. Had a f/u with PCP on 12/07/24. Other problems related to medical facilities and other health care Active 2024-12-13 N/A DIABETES CONT INGENCY PLANLast updated: 12/13/2024Member to call for the following symptoms: Blood sugar >300 / Delirium/ Polydipsia/ PolyuriaPlanned intervention: Increase long-acting insulin to 40-50 units/ Increase short-acting insulin per sliding scale-f BG 250-300- 8U, 300-350- 10u, 350-400- 12u, 400-450- 14u / Encourage adequate water intake/ Elevate legs/ Limit high-sugar and high-carbohydrate foods/ Go for a walk Encounters Encounters Type Facility Date of Service Diagnosis/Co mplaint Pain Assessment - NO pain present (1126F) [facility] [place] Pain Assessment - NO pain present (1126F[place] [facility] [place] Pain Assessment - NO pain present (1126F) [facility] [place] Pain Assessment - NO pain present (1126F) [facility] [place] Pain Assessment - NO pain present (1126F) [facility] [place] Pain Assessment - NO pain present (1126F) [facility] [place] Pain Assessment - NO pain present (1126F) [facility] [place] Pain Assessment - NO pain present (1126F) [facility] [place] Pain Assessment - NO pain present (1126F) [facility] [place] Presence of insulin pump (external) (internal)Migraine, unspecified, not intractable, without status migrainosusType 2 diabetes mellitus with other specified 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Hyperlipidemia, unspecifiedUnspecified dementia without behavioral disturbanceOveractive bladderObesity, unspecifiedMajor depressive disorder, single episode, unspecifiedAnxiety disorder, unspecified Estab. patient 30-39min; chronic exacerbation, 2 stable chronic or 1 acute illness add add modifier 95 for video, (do not use for phone, instead use 50066-14) [facility] [place] Migraine, unspecified, not intractable, without status migrainosusType 2 diabetes mellitus with other specified 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Hyperlipidemia, unspecifiedUnspecified dementia without behavioral disturbanceMajor depressive disorder, recurrent, moderateOveractive bladderObesity, unspecifiedAnxiety disorder, unspecified Estab. patient 30-39min; chronic exacerbation, 2 stable chronic or 1 acute illness add add modifier 95 for video, (do not use for phone, instead use 01636-96) [facility] [place] Estab. patient 30-39min; chronic exacerbation, 2 stable chronic or 1 acute illness add add modifier 95 for video, (do not use for phone, instead use 29918-80) [facility] [place] Estab. patient 30-39min; chronic exacerbation, 2 stable chronic or 1 acute illness add add modifier 95 for video, (do not use for phone, instead use 35497-69) [facility] [place] Estab. patient 30-39min; chronic exacerbation, 2 stable chronic or 1 acute illness add add modifier 95 for video, (do not use for phone, instead use 65437-18) [facility] [place] Estab. patient 30-39min; chronic exacerbation, 2 stable chronic or 1 acute illness add add modifier 95 for video, (do not use for phone, instead use 67751-40) [facility] [place] Estab. patient 30-39min; chronic exacerbation, 2 stable chronic or 1 acute illness add add modifier 95 for video, (do not use for phone, instead use 34388-36) [facility] [place] Estab. patient 30-39min; chronic exacerbation, 2 stable chronic or 1 acute illness add add modifier 95 for video, (do not use for phone, instead use 02983-49) [facility] [place] Estab. patient 30-39min; chronic exacerbation, 2 stable chronic or 1 acute illness add add modifier 95 for video, (do not use for phone, instead use 06219-77) [facility] [place] Estab. patient 30-39min; chronic exacerbation, 2 stable chronic or 1 acute illness add add modifier 95 for video, (do not use for phone, instead use 14038-30) [facility] [place] Estab. patient 30-39min; chronic exacerbation, 2 stable chronic or 1 acute illness add add modifier 95 for video, (do not use for phone, instead use 38791-85) [facility] [place] Migraine, unspecified, not intractable, [...] (do not use for phone, instead use 34628-59) [facility] [place] Estab. patient 30-39min; chronic exacerbation, 2 stable chronic or 1 acute illness add add modifier 95 for video, (do not use for phone, instead use 11990-26) [facility] [place] Estab. patient 30-39min; chronic exacerbation, 2 stable chronic or 1 acute illness add add modifier 95 for video, (do not use for phone, instead use 06429-31) [facility] [place] Estab. patient 30-39min; chronic exacerbation, 2 stable chronic or 1 acute illness add add modifier 95 for video, (do not use for phone, instead use 33196-15) [facility] [place] Estab. patient 30-39min; chronic exacerbation, 2 stable chronic or 1 acute illness add add modifier 95 for video, (do not use for phone, instead use 42276-86) [facility] [place] Estab. patient 30-39min; chronic exacerbation, 2 stable chronic or 1 acute illness add add modifier 95 for video, (do not use for phone, instead use 11981-14) [facility] [place] Estab. patient 30-39min; chronic exacerbation, 2 stable chronic or 1 acute illness add add modifier 95 for video, (do not use for phone, instead use 48529-89) [facility] [place] Estab. patient 30-39min; chronic exacerbation, 2 stable chronic or 1 acute illness add add modifier 95 for video, (do not use for phone, instead use 19950-88) [facility] [place] Estab. patient 30-39min; chronic exacerbation, 2 stable chronic or 1 acute illness add add modifier 95 for video, (do not use for phone, instead use 95394-28) [facility] [place] Estab. patient 20-29min; 1 stable chronic or 2 minor; add add modifier 95 for video, modifier 93 for phone [facility] [place]13/2024 Migraine, unspecified, not intractable, without status [...] 95 for video, modifier 93 for phone [facility] [place] 12[place]13/[place] Estab. patient 20-29min; 1 stable chronic or 2 minor; add add modifier 95 for video, modifier 93 for phone [facility] [place]/13/[place] Estab. patient 20-29min; 1 stable chronic or 2 minor; add add modifier 95 for video, modifier 93 for phone [facility] [place]/13/[place] Estab. patient 20-29min; 1 stable chronic or 2 minor; add add modifier 95 for video, modifier 93 for phone [facility] [place]/13/[place] Estab. patient 20-29min; 1 stable chronic or 2 minor; add add modifier 95 for video, modifier 93 for phone [facility] [place] 12/13/20[place] Estab. patient 20-29min; 1 stable chronic or 2 minor; add add modifier 95 for video, modifier 93 for phone [facility] [place] 12/13/2024 Vital Signs Date of Collection Vitals [...] tive Time Current Smoking Status Never smoker 4 Sex Female Gender identity Woman History [...] (do not use for phone, instead use 55649-51) [id number] 2022-08-13 No Data Available No Data Availa ble Estab. patient 30-39min; chronic exacerbation, 2 stable chronic or 1 acute illness add add modifier 95 for video, (do not use for phone, instead use 35607-41) [id number] 2023-05-22 No Data Available No Data Availa [...] (do not use for phone, instead use 80376-40) [id number] 2024-01-30 No Data Available No Data Availa [...] 95 for video, modifier 93 for phone [id number] 2024-12-13 No Data Available No Data Availa [...] mellitus ty pe 2, 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, on tank terminal gauger insulin pumpMigrainesHyperlipidemia associated with type 2 diabetes [...] education needs that may arise.Has omnipod insulin [id number] 7.7% last monthBlood sugar varies, since adding [...] arise.Emgality monthlyNeurology - Dr. Magallanes omnipod insulin [id number] 7.7% last monthBlood sugar varies, since adding [...] Dr. JohnsonRosuvastatin, Lantus, Humalog Has omnipod insulin [id number] 7.7% Monitor BG routinely, low carb diet, [...] present (1126F)Continue to see PCP. Follow-up with Jarvis as needed for any acute or disease education needs that may arise.StableQuilipta, Emgality Monitor for symptoms of migraines, continue taking medications, and continue f/u care with Neurology - Dr. Molina12/13/24 : Continue current treatment plan as directed. Had a f/u with Neurology on 12/09/24.StableRosuvastatin, Lantus, Humalog Has omnipod insulin [id number] 7.7% Monitor BG routinely, low carb diet, exercise as tolerable and continue with PCP and Endocrinology - Neil Landa Elijah Dyeryvette12/13/24 : BG this a.m. 105. A1c last [...] Social history. 2024-12-13 <add details of Adva dce Care Planning conversation using .Full Code 2024-12-13 Most recent hospital stay(s) or ER visit(s) and precipitating factors: Denies 2024-12-13 Open HEDIS Measure [place]ad [place]: Reviewed
== END 2025-03-16 11:40 | disposition home or self-care (01) ==
LOC: HO.ENCR 11:14
PROVIDERS: PCP Internal Medicine; Visit Provider Nurse Practitioner Adult Health
DX: E11.42 Type 2 diabetes mellitus with diabetic polyneuropathy (principal); Z79.4 Long term (current) use of insulin
CPT/HCPCS: 95251; 99214; G2211

== ENCOUNTER → 2025-03-16 11:00 | Outpatient (BNVA) | payer OTHER, SELFPAY | PROVIDERS: PCP Internal Medicine; Visit Provider Nurse Practitioner Adult Health | DX: E10.42 Type 1 diabetes mellitus with diabetic polyneuropathy (principal); Z96.41 Presence of insulin pump (external) (internal); Z79.4 Long term (current) use of insulin | CPT/HCPCS: 82947; 83036; 99212 ==

== ENCOUNTER 2025-03-28 15:02 | Outpatient (AMB) | payer OTHER, SELFPAY ==
--- NOTE | 2025-03-28 15:20 | MHC.AMDMED ---
Intake Intake Visit Reasons: 60 min Counseling Services Manager Required: Yes Counseling Services Manager Language: Revenue Collector Name: Mary Bazan's daughter Accompanied by: Daughter Allergies francisco Allergy (Severe, Verified 02/28/25 14:38) Rash Penicillins Allergy (Intermediate, Verified 02/28/25 14:38) RASH/HIVES HPI Comprehensive Diabetes Asmnt Most Recent Diabetes Results: Microalb/Creat Ratio 10.8 ug/mg cr (<30) 02/25/25 Cholesterol 108 mg/dL (<200) 02/25/25 HDL Cholesterol 43 mg/dL (>40) 02/25/25 Triglycerides 138 mg/dL (<150) 02/25/25 Creatinine 0.74 mg/dL (0.5-1.4) 02/25/25 Blood Urea Nitrogen 17 mg/dL (9-16) H 02/25/25 Sodium 143 mmol/L (135-145) 02/25/25 Potassium 4.5 mmol/L (3.3-5.1) 02/25/25 Chloride 106 mmol/L (96-108) 02/25/25 Carbon Dioxide 30 mmol/L (22-29) H 02/25/25 Calcium 9.6 mg/dL (8.4-10.2) 02/25/25 AST 45 U/L (5-31) H 02/25/25 ALT 43 U/L (0-31) H 02/25/25 Total Protein 6.8 g/dL (6.5-8.0) 02/25/25 Albumin 3.8 g/dL (3.5-5.0) 02/25/25 [facility] Medical History (Updated 03/16/25 @ 12:03 by Taylor Russ NP) Elevated LFTs Type 2 diabetes mellitus with diabetic polyneuropathy Abdominal pain Simple ovarian cyst Diabetes type 2, uncontrolled Overactive bladder Diabetes mellitus Urge incontinence of urine Uninhibited neurogenic bladder Delayed gastric emptying Type 2 diabetes mellitus 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, with prison current use of insulin pump Type 2 diabetes mellitus 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 Nausea and vomiting Sinusitis History of stroke Colon cancer screening Right ankle swelling Cellulitis of right lower leg Swelling of right lower extremity Left leg pain Left ankle sprain Ankle fracture, left Chronic pain syndrome Dementia 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 Diabetic neuropathy UTI (urinary tract infection) Insomnia Glaucoma Migraine Acquired hypothyroidism Hearing impairment CVA (cerebral vascular accident) Blind left eye Localized swelling, mass and lump, neck Urinary tract infection with pyuria Elevated liver enzymes Depression Anxiety Urinary incontinence in female Dementia Osteoarthritis Lumbar spondylosis Pure hypercholesterolemia Pain of right thumb Allergic rhinitis Hypertension Obesity (BMI 30-39.9) Vitamin D deficiency Dyslipidemia Diabetic polyneuropathy associated with type 2 diabetes mellitus Diabetic 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 type 2 diabetes mellitus 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 Right sided abdominal pain Dizziness and giddiness Orthostatic hypotension Charmaine albicans infection Surgical History (Updated 02/28/25 @ 14:40 by Elijah Hunter MD) History of carpal tunnel release History of pubovaginal sling Hx of eye surgery Hx of cystoscopy Hx of hysterectomy Hx of cholecystectomy History of esophagogastroduodenoscopy (EGD) Hx of colonoscopy Family History Father Diabetes Mother Heart problem Brother Diabetes Social History Housing: Apartment Are you a primary care team coordinator scheduler to a significant other at home: No Do you presently have visiting nurse or other home services: No Alcohol intake: never Patient Tobacco Use Status: Never used Tobacco e-Cigarette/Vaping Use: Never Used Second Hand Smoke Exposure: No service: No Current occupational status: disabled Gender identity: Female Cognitive needs: Yes (Cane, walker) Hearing needs: No Vision needs: Yes (Glasses) Female Reproductive History Menstrual Age of Menarche: 10 Assessment & Plan Assessment & Plan (1) Diabetic 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 type 2 diabetes mellitus: Code(s): E11.319 - Type 2 diabetes mellitus with unspecified diabetic retinopathy without macular edema Qualifiers: Diabetic retinopathy severity: with moderate nonproliferative retinopathy Diabetes mellitus macular edema: without macular edema Laterality: bilateral Qualified Code(s): E11.3393 - Type 2 diabetes mellitus with moderate nonproliferative diabetic retinopathy without macular edema, bilateral Plan: Patient at visit to set up an insert sample dexcom G7 with cloth mercerizer back tender Patient on Omnipod 5 with Dexcom G7 sensor Patient's daughter replace patient's cell phone, new cell phone is not compatible with Dexcom G7 baltazar. Patient's daughter is going to return to store to get compatible cell phone. Until then patient will be using Dexcom G7 sensor with cloth mercerizer back tender. This will not be integrated with Omnipod 5 insulin pump Once patient has compatible smart phone we will set up Vol[employer] smart phone baltazar and integrate with Omnipod 5 cloth mercerizer back tender Instructed patient sensors water proof you can shower, or swim do not submerge sensor in water for over 30 minutes Is sensor falls off cannot put back in you need to replace sensor, customer service number given to patient for sensor replacement Sensor placed on the back of right arm Patient left visit with sensor in warmup Reviewed how to interpret trend arrows Discussed lag time between finger stick and sensor data.? Instructed patient the importance of having blood glucometer for backup testing if needed Reviewed delay of CGM from fingersticks Reminded Pt that if symptoms do not match sensor still needs to check fingersticks. Portions of this note were created using voice recognition software, please excuse any words or phrases that may have been misinterpreted. Coding Level of Care Code Est Pt Level 1 (51644) Diagnoses 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 edema associated with type 2 diabetes mellitus E11.3393 Diabetic retinopathy severity: with moderate nonproliferative retinopathy Diabetes mellitus macular edema: without macular edema Laterality: bilateral
--- OUTSIDE RECORDS SUMMARY | 2025-03-28 16:49 | XMS_ITS ---
Author Name Worthington FIRST GRADE TEACHER,OXYGEN PLANT OPERATOR,FN P,SENIOR POLICY ANALYST, Chasidy Address [address] [place] [id number] Phone [phone] [facility] Care Team Providers Care Non Ferrous Material Handler Name Role Phone Chasidy Worthington Unavailable [phone] VANITA MOLINA Unavailable [phone] TRIP GOETZ Unavailable [phone] MYAH ELDER Unavailable [phone] Elijah Hunter Unavailable [phone] DEVIN ESTRELLA Unavailable [phone] XOCHITL TAVAREZ Unavailable [phone] Leijajanuary Unavailable [phone] Neil Velazquez Unavailable [phone] Reason for Referral Not Available Allergies, adverse [...] AT BEDTIME 2022 No Data Available Nystatin [id number] UNIT/GM Crm APPLY TO AFF ECTED AREA [...] 2023-02-24 2024-01-30 BD UF MICRO PEN NEEDLE [id number] DIRECTED INJECTS 4 TIMES A DAY 2023-03-19 [...] StableRosuvastat in, Lantus, Humalog Has omnipod insulin [id number] 7.7% Monitor BG routinely, low carb diet, [...] urology. Urology - Dr. Trip Goetz, sees Myha Elder NP at same office at times. [...] Pain Assessment - NO pain present (1126F) [facility] [place] Pain Assessment - NO pain present (1126F) [facility] [place] Pain Assessment - NO pain present (1126F) [facility] [place] Pain Assessment - NO pain present (1126F) [facility] [place] Pain Assessment - NO pain present (1126F) [facility] [place] Pain Assessment - NO pain present (1126F) [facility] [place] Pain Assessment - NO pain present (1126F) [facility] [place] Pain Assessment - NO pain present (1126F) [facility] [place] Pain Assessment - NO pain present (1126F) [facility] [place] Presence of insulin pump (external) (internal)Migraine, unspecified, not intractable, without status migrainosusType 2 diabetes mellitus with other specified 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Hyperlipidemia, unspecifiedUnspecified dementia without behavioral disturbanceOveractive bladderObesity, unspecifiedMajor depressive disorder, single episode, unspecifiedAnxiety disorder, unspecified Estab. patient 30-39min; chronic exacerbation, 2 stable chronic or 1 acute illness add add modifier 95 for video, (do not use for phone, instead use 08615-26) [facility] [place] Migraine, unspecified, not intractable, without status migrainosusType 2 diabetes mellitus with other specified 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Hyperlipidemia, unspecifiedUnspecified dementia without behavioral disturbanceMajor depressive disorder, recurrent, moderateOveractive bladderObesity, unspecifiedAnxiety disorder, unspecified Estab. patient 30-39min; chronic exacerbation, 2 stable chronic or 1 acute illness add add modifier 95 for video, (do not use for phone, instead use 52050-51) [facility] [place] Estab. patient 30-39min; chronic exacerbation, 2 stable chronic or 1 acute illness add add modifier 95 for video, (do not use for phone, instead use 85744-55) [facility] [place] Estab. patient 30-39min; chronic exacerbation, 2 stable chronic or 1 acute illness add add modifier 95 for video, (do not use for phone, instead use 21526-21) [facility] [place] Estab. patient 30-39min; chronic exacerbation, 2 stable chronic or 1 acute illness add add modifier 95 for video, (do not use for phone, instead use 89875-06) [facility] [place] Estab. patient 30-39min; chronic exacerbation, 2 stable chronic or 1 acute illness add add modifier 95 for video, (do not use for phone, instead use 69433-49) [facility] [place] Estab. patient 30-39min; chronic exacerbation, 2 stable chronic or 1 acute illness add add modifier 95 for video, (do not use for phone, instead use 46898-02) [facility] [place] Estab. patient 30-39min; chronic exacerbation, 2 stable chronic or 1 acute illness add add modifier 95 for video, (do not use for phone, instead use 65659-11) [facility] [place] Estab. patient 30-39min; chronic exacerbation, 2 stable chronic or 1 acute illness add add modifier 95 for video, (do not use for phone, instead use 17800-25) [facility] [place] 05[place]/20[place] Estab. patient 30-39min; chronic exacerbation, 2 stable chronic or 1 acute illness add add modifier 95 for video, (do not use for phone, instead use 17665-69) [facility] [place] Estab. patient 30-39min; chronic exacerbation, 2 stable chronic or 1 acute illness add add modifier 95 for video, (do not use for phone, instead use 08890-83) [facility] [place]2024 Migraine, unspecified, not intractable, [...] (do not use for phone, instead use 66675-48) [facility] [place] Estab. patient 30-39min; chronic exacerbation, 2 stable chronic or 1 acute illness add add modifier 95 for video, (do not use for phone, instead use 37799-05) [facility] [place] Estab. patient 30-39min; chronic exacerbation, 2 stable chronic or 1 acute illness add add modifier 95 for video, (do not use for phone, instead use 08308-39) [facility] [place] Estab. patient 30-39min; chronic exacerbation, 2 stable chronic or 1 acute illness add add modifier 95 for video, (do not use for phone, instead use 95053-89) [facility] [place] Estab. patient 30-39min; chronic exacerbation, 2 stable chronic or 1 acute illness add add modifier 95 for video, (do not use for phone, instead use 72791-30) [facility] [place] Estab. patient 30-39min; chronic exacerbation, 2 stable chronic or 1 acute illness add add modifier 95 for video, (do not use for phone, instead use 26107-63) [facility] [place] Estab. patient 30-39min; chronic exacerbation, 2 stable chronic or 1 acute illness add add modifier 95 for video, (do not use for phone, instead use 31774-62) [facility] [place] Estab. patient 30-39min; chronic exacerbation, 2 stable chronic or 1 acute illness add add modifier 95 for video, (do not use for phone, instead use 46074-05) [facility] [place] Estab. patient 30-39min; chronic exacerbation, 2 stable chronic or 1 acute illness add add modifier 95 for video, (do not use for phone, instead use 11786-73) [facility] [place] Estab. patient 20-29min; 1 stable chronic or 2 minor; add add modifier 95 for video, modifier 93 for phone [facility] [place] Migraine, unspecified, not intractable, without status [...] 95 for video, modifier 93 for phone [facility] [place] Estab. patient 20-29min; 1 stable chronic or 2 minor; add add modifier 95 for video, modifier 93 for phone [facility] [place] Estab. patient 20-29min; 1 stable chronic or 2 minor; add add modifier 95 for video, modifier 93 for phone [facility] [place] Estab. patient 20-29min; 1 stable chronic or 2 minor; add add modifier 95 for video, modifier 93 for phone [facility] [place] Estab. patient 20-29min; 1 stable chronic or 2 minor; add add modifier 95 for video, modifier 93 for phone [facility] [place]/13/[place] Estab. patient 20-29min; 1 stable chronic or 2 minor; add add modifier 95 for video, modifier 93 for phone [facility] [place]/2024 Vital Signs Date of Collection Vitals [...] tive Time Current Smoking Status Never smoker 2025-03-13 6 Sex Female Gender identity Woman History [...] (do not use for phone, instead use 05281-86) [id number] 2022-08-13 No Data Available No Data Availa ble Estab. patient 30-39min; chronic exacerbation, 2 stable chronic or 1 acute illness add add modifier 95 for video, (do not use for phone, instead use 30276-41) [id number] 2023-05-22 No Data Available No Data Availa [...] (do not use for phone, instead use 43754-89) [id number] 2024-01-30 No Data Available No Data Availa [...] 95 for video, modifier 93 for phone [id number] 2024-12-13 No Data Available No Data Availa [...] education needs that may arise.Has omnipod insulin [id number] 7.7% last monthBlood sugar varies, since adding Trulicity is not as highEndocrinology - Neil Fanggalart monthlyNeurology - Dr. MolinaRosuvastatin 40mg dailyDrRogerio Nava AquillinoDonepezil 10mg dailyMirtazepine 30mg QHSQuetiapine 75 QHSNeurology - Vanita CastrejonenOxybutynin dailyMyrbetriq dailyUrology - Dr. Trip Goetz, sees Myah Elder NP at same office at times.BMI 34.39Clonazepam 0.75mg DailyDaughter reports depression and anxiety is controlled well with medicationsJAEN-PIERRE BURGOS-CContinue seeing all providers as recommendedTake all [...] arise.Emgality monthlyNeurology - Dr. Magallanes omnipod insulin [id number] 7.7% last monthBlood sugar varies, since adding [...] Dr. JohnsonRosuvastatin, Lantus, Humalog Has omnipod insulin [id number] 7.7% Monitor BG routinely, low carb diet, exercise as tolerable and continue with PCP and Endocrinology - Neil Nava AquillinoStableDonepezil, Mirtazepine, QuetiapineDenies safety concerns Monitor for safety, fall risk precautions, MMSE routinely, and continue f/u care with Neurology - Vanita JohnsonOxybutynin dailyMyrbetriq dailyContinue f/u with PCP and urology. Urology - Dr. rTip Goetz, sees Myah Elder NP at same [...] on 12/09/24.StableRosuvastatin, Lantus, Humalog Has omnipod insulin [id number] 7.7% Monitor BG routinely, low carb diet, [...] Social history. 2024-12-13 <add details of Adva nde Care Planning conversation using .Full Code 2024-12-13 Most recent hospital stay(s) or ER visit(s) and precipitating factors: Denies 2024-12-13 Open HEDIS Measure milad [place]: Reviewed
== END 2025-03-28 15:25 | disposition home or self-care (01) ==
LOC: HO.ENCR 15:03
PROVIDERS: PCP Internal Medicine; Visit Provider Registered Nurse Diabetes Educator
DX: E11.3393 Type 2 diabetes mellitus with moderate nonproliferative diabetic retinopathy without macular edema, bilateral (principal)

== ENCOUNTER → 2025-03-28 15:02 | Outpatient (BNVA) | payer OTHER, SELFPAY | PROVIDERS: PCP Internal Medicine; Visit Provider Registered Nurse Diabetes Educator | DX: E11.3393 Type 2 diabetes mellitus with moderate nonproliferative diabetic retinopathy without macular edema, bilateral (principal) | CPT/HCPCS: 99211 ==

== ENCOUNTER 2025-03-30 08:30 | Outpatient (REF) | payer OTHER, SELFPAY ==
--- NOTE | ~2025-03-30 | MM_ITS ---
EXAMINATION: BONE DENSITOMETRY CLINICAL INDICATION: Asymptomatic menopausal.. History of dementia and height loss. COMPARISON: This is the patient's baseline examination. TECHNIQUE: Using a [facility] dual-energy x-ray absorptiometry was performed of the lumbar spine and left hip. The images are of good technical quality. Summary results are attached. FINDINGS: AP SPINE L1-L4: Mild scoliosis BMD 1.208 g/cm2, Z-score 1.8, T-score 0.2, Mild sclerosis along the facet joints. LEFT FEMUR, NECK: BMD 0.865 g/cm2, Z-score 0.5, T-score -1.2, normal bone mineral density. IDENTIFIED RISK FACTORS: None. HISTORY OF FRACTURE: None listed. MEDICATIONS: None listed. MM/XR DEXA axial skeleton IMPRESSION: 1. DIAGNOSIS: Osteopenia based on the lowest T-score value of -1.2 in the left femoral neck applying World Health Organization criteria. 2. 10-YEAR FRACTURE RISK PREDICTION, FRAX: Major osteoporotic fracture 5.5%. Left hip 0.8% 3. Treatment Recommendations: NOF guidelines recommend consideration for treatment in postmenopausal women and men age 50 and older presenting with the following: -A hip or vertebral (clinical or morphometric) fracture. -T-score less than or equal to -2.5 at the femoral neck or spine after appropriate evaluation to exclude secondary causes. -Low bone mass at the hip or spine and a 10-year fracture probability by FRAX of greater than or equal to 3% for hip fracture or greater than or equal to 20% for major osteoporotic fracture based on the [place] adapted WHO algorithm. 4. All treatment decisions require clinical judgment and consideration of individual patient factors, including patient preferences, comorbidities, previous drug use, risk factors not captured in the FRAX model and possible under or overestimation of fracture risk by fractures. Additional medical evaluation for secondary causes of low bone mineral density may be appropriate. FUTURE SCAN RECOMMENDATION: People with diagnosed cases of osteoporosis or at high risk for fracture should have regular bone mineral density tests. For patients eligible for Medicare, routine testing is allowed once every 2 years. The testing frequency can be increased to one year for patients who have rapidly progressing disease, those who are receiving or discontinuing medical therapy to restore bone mass, or have additional risk factors. Electronically signed by: Theo Stallworth MD 03/31/2025 08:03 AM EDT
--- OUTSIDE RECORDS SUMMARY | 2025-03-30 08:53 | XMS_ITS ---
Author Name Worthington SOCIAL GROUP WORKER,BUSINESS OFFICE REPRESENTATIVE,FN P,ASSISTANT MANAGER TRAINEE, Chasidy Address [address] [place] [id number] Phone [phone] [facility] [employer] [facility] Care Team Providers Care Occupational Hygienist Name Role Phone Chasidy Worthington Unavailable [phone] VANITA MOLINA Unavailable [phone] TRIP GOETZ Unavailable [phone] MYAH ELDER Unavailable [phone] Elijah Hunter Unavailable [phone] DEVIN ESTRELLA Unavailable [phone] XOCHITL TAVAREZ Unavailable [phone] LeijaJanuary Unavailable [phone] Neil Velazquez Unavailable [phone] Reason for Referral Not Available Allergies, adverse [...] AT BEDTIME 2022 No Data Available Nystatin [id number] UNIT/GM Crm APPLY TO AFF ECTED AREA [...] 2023-02-24 2024-01-30 BD UF MICRO PEN NEEDLE [id number] DIRECTED INJECTS 4 TIMES A DAY 2023-03-19 [...] StableRosuvastat in, Lantus, Humalog Has omnipod insulin [id number] 7.7% Monitor BG routinely, low carb diet, [...] Assessment - NO pain present (1126F) [facility] [place] Pain Assessment - NO pain present (1126F) [facility] [place] Pain Assessment - NO pain present (1126F) [facility] [place] Pain Assessment - NO pain present (1126F) [facility] [place] Pain Assessment - NO pain present (1126F) [facility] [place] Pain Assessment - NO pain present (1126F) [facility] [place] Pain Assessment - NO pain present (1126F) [facility] [place] Pain Assessment - NO pain present (1126F) [facility] [place] Pain Assessment - NO pain present (1126F) [facility] [place] Presence of insulin pump (external) (internal)Migraine, unspecified, not intractable, without status migrainosusType 2 diabetes mellitus with other specified 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Hyperlipidemia, unspecifiedUnspecified dementia without behavioral disturbanceOveractive bladderObesity, unspecifiedMajor depressive disorder, single episode, unspecifiedAnxiety disorder, unspecified Estab. patient 30-39min; chronic exacerbation, 2 stable chronic or 1 acute illness add add modifier 95 for video, (do not use for phone, instead use 99549-98) [facility] [place] Migraine, unspecified, not intractable, without status migrainosusType 2 diabetes mellitus with other specified 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Hyperlipidemia, unspecifiedUnspecified dementia without behavioral disturbanceMajor depressive disorder, recurrent, moderateOveractive bladderObesity, unspecifiedAnxiety disorder, unspecified Estab. patient 30-39min; chronic exacerbation, 2 stable chronic or 1 acute illness add add modifier 95 for video, (do not use for phone, instead use 77622-53) [facility] [place] Estab. patient 30-39min; chronic exacerbation, 2 stable chronic or 1 acute illness add add modifier 95 for video, (do not use for phone, instead use 13404-80) [facility] [place] Estab. patient 30-39min; chronic exacerbation, 2 stable chronic or 1 acute illness add add modifier 95 for video, (do not use for phone, instead use 00019-42) [facility] [place] Estab. patient 30-39min; chronic exacerbation, 2 stable chronic or 1 acute illness add add modifier 95 for video, (do not use for phone, instead use 29485-06) [facility] [place] Estab. patient 30-39min; chronic exacerbation, 2 stable chronic or 1 acute illness add add modifier 95 for video, (do not use for phone, instead use 61381-71) [facility] [place] Estab. patient 30-39min; chronic exacerbation, 2 stable chronic or 1 acute illness add add modifier 95 for video, (do not use for phone, instead use 23640-62) [facility] [place] Estab. patient 30-39min; chronic exacerbation, 2 stable chronic or 1 acute illness add add modifier 95 for video, (do not use for phone, instead use 19032-06) [facility] [place] Estab. patient 30-39min; chronic exacerbation, 2 stable chronic or 1 acute illness add add modifier 95 for video, (do not use for phone, instead use 07280-33) [facility] [place] Estab. patient 30-39min; chronic exacerbation, 2 stable chronic or 1 acute illness add add modifier 95 for video, (do not use for phone, instead use 81902-67) [facility] [place] Estab. patient 30-39min; chronic exacerbation, 2 stable chronic or 1 acute illness add add modifier 95 for video, (do not use for phone, instead use 85990-71) [facility] [place] Migraine, unspecified, not intractable, [...] (do not use for phone, instead use 06286-16) [facility] [place] Estab. patient 30-39min; chronic exacerbation, 2 stable chronic or 1 acute illness add add modifier 95 for video, (do not use for phone, instead use 38804-44) [facility] [place] Estab. patient 30-39min; chronic exacerbation, 2 stable chronic or 1 acute illness add add modifier 95 for video, (do not use for phone, instead use 71877-66) [facility] [place] Estab. patient 30-39min; chronic exacerbation, 2 stable chronic or 1 acute illness add add modifier 95 for video, (do not use for phone, instead use 66946-87) [facility] [place] Estab. patient 30-39min; chronic exacerbation, 2 stable chronic or 1 acute illness add add modifier 95 for video, (do not use for phone, instead use 19952-01) [facility] [place] Estab. patient 30-39min; chronic exacerbation, 2 stable chronic or 1 acute illness add add modifier 95 for video, (do not use for phone, instead use 06097-35) [facility] [place] Estab. patient 30-39min; chronic exacerbation, 2 stable chronic or 1 acute illness add add modifier 95 for video, (do not use for phone, instead use 10062-37) [facility] [place] Estab. patient 30-39min; chronic exacerbation, 2 stable chronic or 1 acute illness add add modifier 95 for video, (do not use for phone, instead use 79151-23) [facility] [place] Estab. patient 30-39min; chronic exacerbation, 2 stable chronic or 1 acute illness add add modifier 95 for video, (do not use for phone, instead use 55283-29) [facility] [place] Estab. patient 20-29min; 1 stable chronic or 2 minor; add add modifier 95 for video, modifier 93 for phone [facility] [place]2024 Migraine, unspecified, not intractable, without status [...] for video, modifier 93 for phone [facility] [place] Estab. patient 20-29min; 1 stable chronic or 2 minor; add add modifier 95 for video, modifier 93 for phone [facility] [place] Estab. patient 20-29min; 1 stable chronic or 2 minor; add add modifier 95 for video, modifier 93 for phone [facility] [place]/13/20[place] Estab. patient 20-29min; 1 stable chronic or 2 minor; add add modifier 95 for video, modifier 93 for phone [facility] [place]/13/20[place] Estab. patient 20-29min; 1 stable chronic or 2 minor; add add modifier 95 for video, modifier 93 for phone [facility] [place]/13/20[place] Estab. patient 20-29min; 1 stable chronic or 2 minor; add add modifier 95 for video, modifier 93 for phone [facility] [place] 12/13/2024 Vital Signs Date of Collection Vitals [...] Time Current Smoking Status Never smoker 2025-03-13 8 Sex Female Gender identity Woman History of [...] (do not use for phone, instead use 54980-18) [id number] 2022-08-13 No Data Available No Data Availa ble Estab. patient 30-39min; chronic exacerbation, 2 stable chronic or 1 acute illness add add modifier 95 for video, (do not use for phone, instead use 83741-41) [id number] 2023-05-22 No Data Available No Data Availa [...] ble Advance care planning discussed and documented advance care plan or surrogate decision-maker was [...] (do not use for phone, instead use 60790-78) [id number] 2024-01-30 No Data Available No Data Availa [...] discussed and documented in the medical record beneficiary/patient did not wish to or was [...] 95 for video, modifier 93 for phone [id number] 2024-12-13 No Data Available No Data Availa [...] ble Advance care planning discussed and documented advance care plan or surrogate decision-maker was [...] mellitus ty pe 2, 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, on terminal superintendent insulin pumpMigrainesHyperlipidemia associated with type 2 diabetes [...] education needs that may arise.Has omnipod insulin [id number] 7.7% last monthBlood sugar varies, since adding [...] modifier 95Advance care planning discussed and documented advance care plan or surrogate decision-maker was documented in the medical record. (1123F)Advance care planning discussed and documented in the medical record beneficiary/patient did not wish to or was unable to provide an advance care plan or name a surrogate decision-maker. (1124F)Pain Assessment - NO pain documented (1126F)Continue to see PCP. Follow-up with Jarvis as needed for any acute or disease education needs that may arise.Emgality monthlyNeurology - Dr. Magallanes omnipod insulin [id number] 7.7% last monthBlood sugar varies, since adding [...] discussed and documented in the medical record beneficiary/patient did not wish to or was [...] Dr. JohnsonRosuvastatin, Lantus, Humalog Has omnipod insulin [id number] 7.7% Monitor BG routinely, low carb diet, [...] record (1158F)Advance care planning discussed and documented advance care plan or surrogate decision-maker was [...] on 12/09/24.StableRosuvastatin, Lantus, Humalog Has omnipod insulin [id number] 7.7% Monitor BG routinely, low carb diet, [...] Social history. 2024-12-13 <add details of Adva gae Care Planning conversation using .Full Code 2024-12-13 Most recent hospital stay(s) or ER visit(s) and precipitating factors: Denies 2024-12-13 Open HEDIS Josie san: Reviewed
== END 2025-03-30 08:31 | disposition home or self-care (01) ==
LOC: HO.MAMMO 08:30
PROVIDERS: PCP Internal Medicine; Visit Provider Internal Medicine
DX: Z13.820 Encounter for screening for osteoporosis (principal); Z78.0 Asymptomatic menopausal state
CPT/HCPCS: 77080

== ENCOUNTER → 2025-03-30 08:45 | Outpatient (BNV) | payer OTHER, SELFPAY | PROVIDERS: PCP Internal Medicine; Visit Provider Radiology Diagnostic Radiology | DX: E28.39 Other primary ovarian failure (principal) | CPT/HCPCS: 77080 ==

== ENCOUNTER 2025-04-04 11:37 | Outpatient (AMB) | payer OTHER, SELFPAY ==
--- NOTE | 2025-04-04 12:06 | A.OFFVIS_ITS ---
Intake Intake Visit Reasons: 30 min Otr Owner Operator Required: Yes Otr Owner Operator Language: Park Services Specialist Name: Pts Daughter Mary Accompanied by: Daughter Allergies francisco Allergy (Severe, Verified 02/28/25 14:38) Rash Penicillins Allergy (Intermediate, Verified 02/28/25 14:38) RASH/[facility] Medical History (Updated 03/16/25 @ 12:03 by Taylor Russ NP) Elevated LFTs Type 2 diabetes mellitus with diabetic polyneuropathy Abdominal pain Simple ovarian cyst Diabetes type 2, uncontrolled Overactive bladder Diabetes mellitus Urge incontinence of urine Uninhibited neurogenic bladder Delayed gastric emptying Type 2 diabetes mellitus 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, with correction current use of insulin pump Type 2 diabetes mellitus 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 Nausea and vomiting Sinusitis History of stroke Colon cancer screening Right ankle swelling Cellulitis of right lower leg Swelling of right lower extremity Left leg pain Left ankle sprain Ankle fracture, left Chronic pain syndrome Dementia 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 Diabetic neuropathy UTI (urinary tract infection) Insomnia Glaucoma Migraine Acquired hypothyroidism Hearing impairment CVA (cerebral vascular accident) Blind left eye Localized swelling, mass and lump, neck Urinary tract infection with pyuria Elevated liver enzymes Depression Anxiety Urinary incontinence in female Dementia Osteoarthritis Lumbar spondylosis Pure hypercholesterolemia Pain of right thumb Allergic rhinitis Hypertension Obesity (BMI 30-39.9) Vitamin D deficiency Dyslipidemia Diabetic polyneuropathy associated with type 2 diabetes mellitus Diabetic 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 type 2 diabetes mellitus care home (current) use of insulin Right sided abdominal pain Dizziness and giddiness Orthostatic hypotension Charmaine albicans infection Surgical History (Updated 02/28/25 @ 14:40 by Elijah Hunter MD) History of carpal tunnel release History of pubovaginal sling Hx of eye surgery Hx of cystoscopy Hx of hysterectomy Hx of cholecystectomy History of esophagogastroduodenoscopy (EGD) Hx of colonoscopy Family History Father Diabetes Mother Heart problem Brother Diabetes Social History Housing: Apartment Are you a primary day care supervisor to a significant other at home: No Do you presently have visiting nurse or other home services: No Alcohol intake: never Patient Tobacco Use Status: Never used Tobacco e-Cigarette/Vaping Use: Never Used Second Hand Smoke Exposure: No service: No Current occupational status: disabled Gender identity: Female Cognitive needs: Yes (Cane, walker) Hearing needs: No Vision needs: Yes (Glasses) Female Reproductive History Menstrual Age of Menarche: 10 Assessment & Plan Assessment & Plan (1) Diabetic 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 type 2 diabetes mellitus: Code(s): E11.319 - Type 2 diabetes mellitus with unspecified diabetic retinopathy without macular edema Qualifiers: Diabetic retinopathy severity: with moderate nonproliferative retinopathy Diabetes mellitus macular edema: without macular edema Laterality: bilateral Qualified Code(s): E11.3393 - Type 2 diabetes mellitus with moderate nonproliferative diabetic retinopathy without macular edema, bilateral Plan: Set up Dexcom G7 baltazar on patient's smart phone Connect patient's Dexcom G7 sensor to smart phone Once smart phone and sensor were connected, connected sensor to patient's Om nipod 5 automatic tire tester Patient left visit with Omnipod 5 automatic tire tester connected to Dexcom G7 baltazar in auto mode Patient has follow-up appointment in 1 month Coding Level of Care Code Est Pt Level 1 (93368) Diagnoses 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 edema associated with type 2 diabetes mellitus E11.3393 Diabetic retinopathy severity: with moderate nonproliferative retinopathy Diabetes mellitus macular edema: without macular edema Laterality: bilateral
--- OUTSIDE RECORDS SUMMARY | 2025-04-04 13:14 | XMS_ITS ---
Author Name Worthington HOSPITAL PHARMACIST,CAREER LAW CLERK,FN P,HEAD OF VISUAL MERCHANDISING, Chasidy Address [address] [place] [address] Phone [phone] [facility] TELEMEDIC [facility] Care Team Providers Care Makeup Artist Name Role Phone Chasidy Worthington Unavailable [phone] VANITA MOLINA Unavailable [phone] TRIP GOETZ Unavailable [phone] MYAH ELDER Unavailable [phone] Elijah Hunter Unavailable [phone] DEVIN ESTRELLA Unavailable [phone] XOCHITL TAVAREZ Unavailable [phone] Leijajanuary Unavailable [phone] Neil Velazquez Unavailable [phone] Reason for Referral Not Available Allergies, adverse [...] AT BEDTIME 2022 No Data Available Nystatin 835187 UNIT/GM Crm APPLY TO AFF ECTED AREA [...] 2023-02-24 2024-01-30 BD UF MICRO PEN NEEDLE [id number] DIRECTED INJECTS 4 TIMES A DAY 2023-03-19 [...] StableRosuvastat in, Lantus, Humalog Has omnipod insulin khinV8B 7.7% Monitor BG routinely, low carb diet, [...] Pain Assessment - NO pain present (1126F) [facility] [place] Pain Assessment - NO pain present (1126F) [facility] [place] Pain Assessment - NO pain present (1126F) [facility] [place] Pain Assessment - NO pain present (1126F) [facility] [place] Pain Assessment - NO pain present (1126F) [facility] [place] Pain Assessment - NO pain present (1126F) [facility] [place] Pain Assessment - NO pain present (1126F) [facility] [place] Pain Assessment - NO pain present (1126F) [facility] [place] Pain Assessment - NO pain present (1126F) [facility] [place] Presence of insulin pump (external) (internal)Migraine, unspecified, not intractable, without status migrainosusType 2 diabetes mellitus with other specified 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Hyperlipidemia, unspecifiedUnspecified dementia without behavioral disturbanceOveractive bladderObesity, unspecifiedMajor depressive disorder, single episode, unspecifiedAnxiety disorder, unspecified Estab. patient 30-39min; chronic exacerbation, 2 stable chronic or 1 acute illness add add modifier 95 for video, (do not use for phone, instead use 92338-24) [facility] [place] Migraine, unspecified, not intractable, without status migrainosusType 2 diabetes mellitus with other specified 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Hyperlipidemia, unspecifiedUnspecified dementia without behavioral disturbanceMajor depressive disorder, recurrent, moderateOveractive bladderObesity, unspecifiedAnxiety disorder, unspecified Estab. patient 30-39min; chronic exacerbation, 2 stable chronic or 1 acute illness add add modifier 95 for video, (do not use for phone, instead use 42121-13) [facility] [place] Estab. patient 30-39min; chronic exacerbation, 2 stable chronic or 1 acute illness add add modifier 95 for video, (do not use for phone, instead use 58253-00) [facility] [place] Estab. patient 30-39min; chronic exacerbation, 2 stable chronic or 1 acute illness add add modifier 95 for video, (do not use for phone, instead use 26022-33) [facility] [place] Estab. patient 30-39min; chronic exacerbation, 2 stable chronic or 1 acute illness add add modifier 95 for video, (do not use for phone, instead use 79696-40) [facility] [place] Estab. patient 30-39min; chronic exacerbation, 2 stable chronic or 1 acute illness add add modifier 95 for video, (do not use for phone, instead use 47064-89) [facility] [place] Estab. patient 30-39min; chronic exacerbation, 2 stable chronic or 1 acute illness add add modifier 95 for video, (do not use for phone, instead use 41011-16) [facility] [place] Estab. patient 30-39min; chronic exacerbation, 2 stable chronic or 1 acute illness add add modifier 95 for video, (do not use for phone, instead use 46351-14) [facility] [place] Estab. patient 30-39min; chronic exacerbation, 2 stable chronic or 1 acute illness add add modifier 95 for video, (do not use for phone, instead use 35818-39) [facility] [place] 05/[place] Estab. patient 30-39min; chronic exacerbation, 2 stable chronic or 1 acute illness add add modifier 95 for video, (do not use for phone, instead use 21921-52) [facility] [place] Estab. patient 30-39min; chronic exacerbation, 2 stable chronic or 1 acute illness add add modifier 95 for video, (do not use for phone, instead use 77658-50) [facility] [place] Migraine, unspecified, not intractable, [...] (do not use for phone, instead use 28469-56) [facility] [place] Estab. patient 30-39min; chronic exacerbation, 2 stable chronic or 1 acute illness add add modifier 95 for video, (do not use for phone, instead use 35097-61) [facility] [place] Estab. patient 30-39min; chronic exacerbation, 2 stable chronic or 1 acute illness add add modifier 95 for video, (do not use for phone, instead use 49322-13) [facility] [place] Estab. patient 30-39min; chronic exacerbation, 2 stable chronic or 1 acute illness add add modifier 95 for video, (do not use for phone, instead use 87764-58) [facility] [place] 01[place] Estab. patient 30-39min; chronic exacerbation, 2 stable chronic or 1 acute illness add add modifier 95 for video, (do not use for phone, instead use 17797-56) [facility] [place] 01/[place] Estab. patient 30-39min; chronic exacerbation, 2 stable chronic or 1 acute illness add add modifier 95 for video, (do not use for phone, instead use 77088-24) [facility] [place] Estab. patient 30-39min; chronic exacerbation, 2 stable chronic or 1 acute illness add add modifier 95 for video, (do not use for phone, instead use 76793-42) [facility] [place] Estab. patient 30-39min; chronic exacerbation, 2 stable chronic or 1 acute illness add add modifier 95 for video, (do not use for phone, instead use 13021-77) [facility] [place] 01[place] Estab. patient 30-39min; chronic exacerbation, 2 stable chronic or 1 acute illness add add modifier 95 for video, (do not use for phone, instead use 74362-25) [facility] [place] 01/[place] Estab. patient 20-29min; 1 stable chronic or 2 minor; add add modifier 95 for video, modifier 93 for phone [facility] [place] 12[place]2024 Migraine, unspecified, not intractable, [...] 95 for video, modifier 93 for phone [facility] [place] 12[place] Estab. patient 20-29min; 1 stable chronic or 2 minor; add add modifier 95 for video, modifier 93 for phone [facility] [place] 12/13/[place] Estab. patient 20-29min; 1 stable chronic or 2 minor; add add modifier 95 for video, modifier 93 for phone [facility] [place] 12/13/20[place] Estab. patient 20-29min; 1 stable chronic or 2 minor; add add modifier 95 for video, modifier 93 for phone [facility] [place] 12/13/20[place] Estab. patient 20-29min; 1 stable chronic or 2 minor; add add modifier 95 for video, modifier 93 for phone [facility] [place] 12/13/20[place] Estab. patient 20-29min; 1 stable chronic or 2 minor; add add modifier 95 for video, modifier 93 for phone [facility] [place] 12/13/2024 Vital Signs Date of [...] tive Time Current Smoking Status Never smoker 2025-03-14 3 Sex Female Gender identity Woman History of [...] (do not use for phone, instead use 96511-47) 93022 2022-08-13 No Data Available No Data Availa ble Estab. patient 30-39min; chronic exacerbation, 2 stable chronic or 1 acute illness add add modifier 95 for video, (do not use for phone, instead use 27899-04) [id number] 2023-05-22 No Data Available No Data Availa [...] (do not use for phone, instead use 35915-17) 08701 2024-01-30 No Data Available No Data Availa [...] 95 for video, modifier 93 for phone 34867 2024-12-13 No Data Available No Data Availa [...] mellitus ty pe 2, 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, on intermediate accountant insulin pumpMigrainesHyperlipidemia associated with type 2 diabetes [...] education needs that may arise.Has omnipod insulin gbsgG0A 7.7% last monthBlood sugar varies, since adding [...] arise.Emgality monthlyNeurology - Dr. Magallanes omnipod insulin wxxpS3P 7.7% last monthBlood sugar varies, since adding [...] Dr. JohnsonRosuvastatin, Lantus, Humalog Has omnipod insulin pjgeU3I 7.7% Monitor BG routinely, low carb diet, [...] on 12/09/24.StableRosuvastatin, Lantus, Humalog Has omnipod insulin yxhqU7M 7.7% Monitor BG routinely, low carb diet, [...] Social history. 2024-12-13 <add details of Adva mse Care Planning conversation using .Full Code 2024-12-13 Most recent hospital stay(s) or ER visit(s) and precipitating factors: Denies 2024-12-13 Open HEDIS Josie san: Reviewed
== END 2025-04-04 12:12 | disposition home or self-care (01) ==
LOC: HO.ENCR 11:38
PROVIDERS: PCP Internal Medicine; Visit Provider Registered Nurse Diabetes Educator
DX: E11.3393 Type 2 diabetes mellitus with moderate nonproliferative diabetic retinopathy without macular edema, bilateral (principal)

== ENCOUNTER → 2025-04-04 11:37 | Outpatient (BNVA) | payer OTHER, SELFPAY | PROVIDERS: PCP Internal Medicine; Visit Provider Registered Nurse Diabetes Educator | DX: E11.3393 Type 2 diabetes mellitus with moderate nonproliferative diabetic retinopathy without macular edema, bilateral (principal) | CPT/HCPCS: 99211 ==

== ENCOUNTER 2025-05-19 10:15 | Outpatient (AMB) | payer OTHER, SELFPAY ==
--- OUTSIDE RECORDS SUMMARY | 2025-05-19 10:45 | XMS_ITS ---
Author Name Worthington DOPE WORKER,LINE ORDERING CLINICIAN,FN P,FINANCE CONTROLLER, Chasidy Address [address] [place] [address] Phone [phone] [facility] TELEMEDIC [facility] Care Team Providers Care Agriculture Engineer Name Role Phone Chasidy Worthington Unavailable [phone] VANITA MOLINA Unavailable [phone] TRIP GOETZ Unavailable [phone] MYAH ELDER Unavailable [phone] Elijah Hunter Unavailable [phone] DEVIN ESTRELLA Unavailable [phone] XOCHITL TAVAREZ Unavailable [phone] LeijaJanuary Unavailable [phone] Neil Velazquez Unavailable [phone] Reason for Referral Not Available Allergies, adverse [...] AT BEDTIME 2022 No Data Available Nystatin 596648 UNIT/GM Crm APPLY TO AFF ECTED AREA [...] 2023-02-24 2024-01-30 BD UF MICRO PEN NEEDLE [id number] DIRECTED INJECTS 4 TIMES A DAY 2023-03-19 [...] StableRosuvastat in, Lantus, Humalog Has omnipod insulin hslnP5H 7.7% Monitor BG routinely, low carb diet, [...] Pain Assessment - NO pain present (1126F) [facility] [place] Pain Assessment - NO pain present (1126F) [facility] [place] Pain Assessment - NO pain present (1126F) [facility] [place] Pain Assessment - NO pain present (1126F) [facility] [place] Pain Assessment - NO pain present (1126F) [facility] [place] Pain Assessment - NO pain present (1126F) [facility] [place] Pain Assessment - NO pain present (1126F) [facility] [place] Pain Assessment - NO pain present (1126F) [facility] [place] Pain Assessment - NO pain present (1126F) [facility] [place] Presence of insulin pump (external) (internal)Migraine, unspecified, not intractable, without status migrainosusType 2 diabetes mellitus with other specified 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Hyperlipidemia, unspecifiedUnspecified dementia without behavioral disturbanceOveractive bladderObesity, unspecifiedMajor depressive disorder, single episode, unspecifiedAnxiety disorder, unspecified Estab. patient 30-39min; chronic exacerbation, 2 stable chronic or 1 acute illness add add modifier 95 for video, (do not use for phone, instead use 98976-60) [facility] [place]20[place] Migraine, unspecified, not intractable, without status migrainosusType 2 diabetes mellitus with other specified 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Hyperlipidemia, unspecifiedUnspecified dementia without behavioral disturbanceMajor depressive disorder, recurrent, moderateOveractive bladderObesity, unspecifiedAnxiety disorder, unspecified Estab. patient 30-39min; chronic exacerbation, 2 stable chronic or 1 acute illness add add modifier 95 for video, (do not use for phone, instead use 84191-01) [facility] [place] Estab. patient 30-39min; chronic exacerbation, 2 stable chronic or 1 acute illness add add modifier 95 for video, (do not use for phone, instead use 73550-12) [facility] [place] Estab. patient 30-39min; chronic exacerbation, 2 stable chronic or 1 acute illness add add modifier 95 for video, (do not use for phone, instead use 16206-27) [facility] [place] Estab. patient 30-39min; chronic exacerbation, 2 stable chronic or 1 acute illness add add modifier 95 for video, (do not use for phone, instead use 39523-92) [facility] [place] Estab. patient 30-39min; chronic exacerbation, 2 stable chronic or 1 acute illness add add modifier 95 for video, (do not use for phone, instead use 54423-46) [facility] [place] Estab. patient 30-39min; chronic exacerbation, 2 stable chronic or 1 acute illness add add modifier 95 for video, (do not use for phone, instead use 53074-41) [facility] [place] Estab. patient 30-39min; chronic exacerbation, 2 stable chronic or 1 acute illness add add modifier 95 for video, (do not use for phone, instead use 54052-74) [facility] [place] Estab. patient 30-39min; chronic exacerbation, 2 stable chronic or 1 acute illness add add modifier 95 for video, (do not use for phone, instead use 06580-71) [facility] [place] 05/22/20[place] Estab. patient 30-39min; chronic exacerbation, 2 stable chronic or 1 acute illness add add modifier 95 for video, (do not use for phone, instead use 90267-50) [facility] [place] Estab. patient 30-39min; chronic exacerbation, 2 stable chronic or 1 acute illness add add modifier 95 for video, (do not use for phone, instead use 92150-48) [facility] [place] Migraine, unspecified, not intractable, without [...] (do not use for phone, instead use 90164-55) [facility] [place] Estab. patient 30-39min; chronic exacerbation, 2 stable chronic or 1 acute illness add add modifier 95 for video, (do not use for phone, instead use 99628-78) [facility] [place] Estab. patient 30-39min; chronic exacerbation, 2 stable chronic or 1 acute illness add add modifier 95 for video, (do not use for phone, instead use 40796-32) [facility] [place] Estab. patient 30-39min; chronic exacerbation, 2 stable chronic or 1 acute illness add add modifier 95 for video, (do not use for phone, instead use 22435-17) [facility] [place] Estab. patient 30-39min; chronic exacerbation, 2 stable chronic or 1 acute illness add add modifier 95 for video, (do not use for phone, instead use 07611-70) [facility] [place] Estab. patient 30-39min; chronic exacerbation, 2 stable chronic or 1 acute illness add add modifier 95 for video, (do not use for phone, instead use 21591-89) [facility] [place] Estab. patient 30-39min; chronic exacerbation, 2 stable chronic or 1 acute illness add add modifier 95 for video, (do not use for phone, instead use 19887-82) [facility] [place] Estab. patient 30-39min; chronic exacerbation, 2 stable chronic or 1 acute illness add add modifier 95 for video, (do not use for phone, instead use 07926-77) [facility] [place] Estab. patient 30-39min; chronic exacerbation, 2 stable chronic or 1 acute illness add add modifier 95 for video, (do not use for phone, instead use 07907-48) [facility] [place] Estab. patient 20-29min; 1 stable chronic or 2 minor; add add modifier 95 for video, modifier [address] [facility] [place] Migraine, unspecified, not intractable, without status [...] 95 for video, modifier [address] [facility] [place] Estab. patient 20-29min; 1 stable chronic or 2 minor; add add modifier 95 for video, modifier [address] [facility] [place] Estab. patient 20-29min; 1 stable chronic or 2 minor; add add modifier 95 for video, modifier [address] [facility] [place] Estab. patient 20-29min; 1 stable chronic or 2 minor; add add modifier 95 for video, modifier [address] [facility] [place] Estab. patient 20-29min; 1 stable chronic or 2 minor; add add modifier 95 for video, modifier [address] [facility] [place] Estab. patient 20-29min; 1 stable chronic or 2 minor; add add modifier 95 for video, modifier [address] [facility] [place]2024 Vital Signs Date of Collection Vitals [...] (do not use for phone, instead use 71323-29) [id number] 2022-08-13 No Data Available No Data Availa ble Estab. patient 30-39min; chronic exacerbation, 2 stable chronic or 1 acute illness add add modifier 95 for video, (do not use for phone, instead use 87854-52) 33903 2023-05-22 No Data Available No Data Availa [...] (do not use for phone, instead use 55112-39) 96062 2024-01-30 No Data Available No Data Availa [...] 95 for video, modifier 93 for phone 37986 2024-12-13 No Data Available No Data Availa [...] ty pe 2, 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, on intermediate card tender insulin pumpMigrainesHyperlipidemia associated with type 2 diabetes [...] education needs that may arise.Has omnipod insulin qbiuO0I 7.7% last monthBlood sugar varies, since adding [...] arise.Emgality monthlyNeurology - Dr. Magallanes omnipod insulin qxscC5S 7.7% last monthBlood sugar varies, since adding [...] Dr. JohnsonRosuvastatin, Lantus, Humalog Has omnipod insulin onwoD8M 7.7% Monitor BG routinely, low carb diet, [...] on 12/09/24.StableRosuvastatin, Lantus, Humalog Has omnipod insulin ehqbS4K 7.7% Monitor BG routinely, low carb diet, [...] Social history. 2024-12-13 <add details of Adva nje Care Planning conversation using .Full Code 2024-12-13 Most recent hospital stay(s) or ER visit(s) and precipitating factors: Denies 2024-12-13 Open HEDIS Josie san: Reviewed
--- OUTSIDE RECORDS SUMMARY | 2025-05-19 10:45 | XMS_ITS | Clinical Summary ---
Author Organization [facility] Address [address] [address] Phone Care Team Providers Care Customer Contact Sales Associate Name Role Phone Elijah Hunter MD Primary Care Provider [phone] Social History Tobacco Use Types Packs/Day Years Used Date Smoking Tobacco: Never Assessed Education Answer Date Recorded Are you interested in more education? Not on jayant e 02/07/2023 Are you concerned about learning? Not on file 02/07/2023 No 02/07/2023 No 02/07/2023 Digital Access Answer Date Recorded No 03/08/2023 No 03/08/2023 No 03/08/2023 Reliable internet access at home? Not on file 03/08/2023 Device with a working camera? Not on file Comments Unknown Sex and Gender Information Value Date Recorded Sex Assigned at Not on file Legal Sex Female 12:23 PM EDT Gender Identity Not on file Sexual Orientation Not on file Plan of Treatment Health Maintenance Due Date Last Done Comments LIPID PANEL 1953 DEPRESSION SCREENING 1965 SMOKING Hx and SMOKELESS TOBACCO SCREENING 1966 HEPATITIS C SCREENING 1971 MAMMOGRAM 1993 COLOGUARD 1998 COLONOSCOPY 1998 COLORECTAL CANCER SCREENING 1998 FIT TEST 1998 FOBT 1998 SIGMOIDOSCOPY 1998 VIRTUAL COLONOSCOPY 1998 OSTEOPOROSIS SCREENING INITI AL (ONE-TIME) 2018 PNEUMOCOCCAL VACCINES (50+ years) (2 of 2 - PCV) 06/01/2020 06/01/2019 COVID-19 VACCINE ( - 2023-2 5 season) 2024 02/26/2021, 02/05/2021 Adult Td,Tdap Booster 08/21/2026 08/21/2016 RSV VACCINE (1 - 1-dose 75+ series) 01/12/2028 ZOSTER VACCINES Completed 05/24/2018, 03/06/2018 HEPATITIS A VACCINES Aged Out No long er eligible based on patient's age to complete this topic HIB VACCINES Aged Out No longer eligi ble based on patient's age to complete this topic MENINGOCOCCAL VACCINES (ACWY) Aged Out No longer eligible based on patient's age to complete this topic MENINGOCOCCAL VACCINES (B) Aged Out N o longer eligible based on patient's age to complete this topic Medical Devices Not on file Insurance [facility] MEDICARE REPLACEMENT Member Subscriber Plan / Payer (Ef fective 2018-Present) Name:Debo Malcolm Relation to Subscriber:Self Name:Debo Malcolm Payer ID:[id number] (NAIC) Group ID:[id number] Type:Medicare Address: [place] [id number] [place] [id number] [facility] MEDICARE [place] [address] MEDICARE REPLACEMENT MEDICARE REPLACEMENT [facility] MEDICARE [place] [address] [address] [place] [address] MEDICARE REPLACEMENT [facility] MEDICARE REPLACEMENT Member Subscriber Plan / Payer (Ef fective 2018-Present) Name:Debo Malcolm Relation to Subscriber:Self Name:Debo Malcolm Payer ID:[id number] (NAIC) Group ID:[id number] Type:Medicare Address: [place] [phone] [employer] MED[employer] REPLACEMENT Care Teams Customer Contact Sales Associate Relationship Specialty Start Date End Date Elijah Hunter MD [address] [place] [address] [place] [address] PCP - General Internal Medicine 08/02/19 Additional Source Comments The information contained in this document represents components of the legal health record. It is not the complete legal health record.[facility]
--- NOTE | 2025-05-19 11:30 | MHC.AMDMED ---
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 Required: Yes Gridcap Machine Operator Language: Cashier Gambling Name: Pts Daughter Mary Accompanied by: Daughter Allergies francisco Allergy (Severe, Verified 02/28/25 14:38) Rash Penicillins Allergy (Intermediate, Verified 02/28/25 14:38) RASH/HIVES [facility] Medical History (Updated 03/16/25 @ 12:03 by Taylor Russ NP) Elevated LFTs Type 2 diabetes mellitus with diabetic polyneuropathy Abdominal pain Simple ovarian cyst Diabetes type 2, uncontrolled Overactive bladder Diabetes mellitus Urge incontinence of urine Uninhibited neurogenic bladder Delayed gastric emptying Type 2 diabetes mellitus 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, with snf current use of insulin pump Type 2 diabetes mellitus 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 Nausea and vomiting Sinusitis History of stroke Colon cancer screening Right ankle swelling Cellulitis of right lower leg Swelling of right lower extremity Left leg pain Left ankle sprain Ankle fracture, left Chronic pain syndrome Dementia 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 Diabetic neuropathy UTI (urinary tract infection) Insomnia Glaucoma Migraine Acquired hypothyroidism Hearing impairment CVA (cerebral vascular accident) Blind left eye Localized swelling, mass and lump, neck Urinary tract infection with pyuria Elevated liver enzymes Depression Anxiety Urinary incontinence in female Dementia Osteoarthritis Lumbar spondylosis Pure hypercholesterolemia Pain of right thumb Allergic rhinitis Hypertension Obesity (BMI 30-39.9) Vitamin D deficiency Dyslipidemia Diabetic polyneuropathy associated with type 2 diabetes mellitus Diabetic 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 type 2 diabetes mellitus prison (current) use of insulin Right sided abdominal pain Dizziness and giddiness Orthostatic hypotension Charmaine albicans infection Surgical History (Updated 02/28/25 @ 14:40 by Elijah Hunter MD) History of carpal tunnel release History of pubovaginal sling Hx of eye surgery Hx of cystoscopy Hx of hysterectomy Hx of cholecystectomy History of esophagogastroduodenoscopy (EGD) Hx of colonoscopy Family History Father Diabetes Mother Heart problem Brother Diabetes Social History Housing: Apartment Are you a primary child care specialist to a significant other at home: No Do you presently have visiting nurse or other home services: No Alcohol intake: never Patient Tobacco Use Status: Never used Tobacco e-Cigarette/Vaping Use: Never Used Second Hand Smoke Exposure: No service: No Current occupational status: disabled Gender identity: Female Cognitive needs: Yes (Cane, walker) Hearing needs: No Vision needs: Yes (Glasses) Female Reproductive History Menstrual Age of Menarche: 10 Assessment & Plan Assessment & Plan (1) Diabetic 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 type 2 diabetes mellitus: Code(s): E11.319 - Type 2 diabetes mellitus with unspecified diabetic retinopathy without macular edema Qualifiers: Diabetic retinopathy severity: with moderate nonproliferative retinopathy Diabetes mellitus macular edema: without macular edema Laterality: bilateral Qualified Code(s): E11.3393 - Type 2 diabetes mellitus with moderate nonproliferative diabetic retinopathy without macular edema, bilateral Plan: Patient on Omnipod 5 with Dexcom G7 sensor Patient's daughter Mary tanner reports that she had multiple sensor failures with Dexcom G7 sensors picked up from pharmacy At today's visit we inserted patient's 3rd Dexcom G7 sensor into right arm. After connecting to Dexcom G7 baltazar on smart phone and to Omnipod plant protection superintendent sensor failed within 5 minutes Inserted new sample Dexcom G7 sensor from office. Waited 25 minute warmup sensor connected to smart phone and to Omnipod 5 plant protection superintendent. Instructed patient's daughter to contact Dexcom for replacement for faulty sensors. Patient given 2 Dexcom G7 sample sensors Instructed patient sensors water proof you can shower, or swim do not submerge sensor in water for over 30 minutes Is sensor falls off cannot put back in you need to replace sensor, customer service number given to patient for sensor replacement Sensor placed on the back of right arm Patient left visit with sensor connected to smart phone and Omnipod 5 plant protection superintendent Instructed patient the importance of having blood glucometer for backup testing if needed Reviewed delay of CGM from fingersticks Reminded Pt that if symptoms do not match sensor still needs to check fingersticks. Patient Instructions: Follow-up with early childhood educator aide in 2 months Coding Level of Care Code Est Pt Level 1 (67737) Diagnoses 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 edema associated with type 2 diabetes mellitus E11.3393 Diabetic retinopathy severity: with moderate nonproliferative retinopathy Diabetes mellitus macular edema: without macular edema Laterality: bilateral
== END 2025-05-19 12:31 | disposition home or self-care (01) ==
LOC: HO.ENCR 10:16
PROVIDERS: PCP Internal Medicine; Visit Provider Registered Nurse Diabetes Educator
DX: E11.3393 Type 2 diabetes mellitus with moderate nonproliferative diabetic retinopathy without macular edema, bilateral (principal)

== ENCOUNTER → 2025-05-19 10:15 | Outpatient (BNVA) | payer OTHER, SELFPAY | PROVIDERS: PCP Internal Medicine; Visit Provider Registered Nurse Diabetes Educator | DX: E11.3393 Type 2 diabetes mellitus with moderate nonproliferative diabetic retinopathy without macular edema, bilateral (principal); Z96.41 Presence of insulin pump (external) (internal) | CPT/HCPCS: 99211 ==

== ENCOUNTER 2025-06-03 10:46 | Outpatient (REF) | payer OTHER, SELFPAY | END 2025-06-03 10:47 | disposition home or self-care (01) | LOC: HO.LAB 10:46 | PROVIDERS: PCP Internal Medicine; Visit Provider Urology | DX: N39.41 Urge incontinence (principal); N31.8 Other neuromuscular dysfunction of bladder; R39.9 Unspecified symptoms and signs involving the genitourinary system; Z79.82 Long term (current) use of aspirin; Z79.4 Long term (current) use of insulin; Z79.84 Long term (current) use of oral hypoglycemic drugs; Z79.899 Other long term (current) drug therapy | CPT/HCPCS: 81003; 87086; 87088; 99212 ==

== ENCOUNTER 2025-06-03 10:46 | Outpatient (AMB) | payer OTHER, SELFPAY ==
--- OUTSIDE RECORDS SUMMARY | 2025-06-03 10:49 | XMS_ITS ---
Author Name Worthington PROPOSAL REP,WILL CALL CLERK,FN P,DOLPHIN TRAINER, Chasidy Address [address] [place] [address] Phone [phone] [facility] [facility] Care Team Providers Care Senior Sharepoint Developer Name Role Phone Chasidy Worthington Unavailable [phone] VANITA MOLINA Unavailable [phone] TRIP GOETZ Unavailable [phone] MYAH ELDER Unavailable [phone] Elijah Hunter Unavailable [phone] DEVIN ESTRELLA Unavailable [phone] XOCHITL TAVAREZ Unavailable [phone] LeijaJanuary Unavailable [phone] Neil Velazquez Unavailable [phone] Reason for Referral Not Available Allergies, adverse [...] AT BEDTIME 2022 No Data Available Nystatin [id number] UNIT/GM Crm APPLY TO AFF ECTED AREA [...] 2023-02-24 2024-01-30 BD UF MICRO PEN NEEDLE [id number] DIRECTED INJECTS 4 TIMES A DAY 2023-03-19 [...] StableRosuvastat in, Lantus, Humalog Has omnipod insulin [id number] 7.7% Monitor BG routinely, low carb diet, [...] Pain Assessment - NO pain present (1126F) [facility] [place] Pain Assessment - NO pain present (1126F) [facility] [place] Pain Assessment - NO pain present (1126F) [facility] [place] Pain Assessment - NO pain present (1126F) [facility] Pain Assessment - NO pain present (1126F) [facility] Pain Assessment - NO pain present (1126F) [facility] Pain Assessment - NO pain present (1126F) [facility] Pain Assessment - NO pain present (1126F) [facility] Pain Assessment - NO pain present (1126F) [facility] Presence of insulin pump (external) (internal)Migraine, unspecified, not intractable, without status migrainosusType 2 diabetes mellitus with other specified 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Hyperlipidemia, unspecifiedUnspecified dementia without behavioral disturbanceOveractive bladderObesity, unspecifiedMajor depressive disorder, single episode, unspecifiedAnxiety disorder, unspecified Estab. patient 30-39min; chronic exacerbation, 2 stable chronic or 1 acute illness add add modifier 95 for video, (do not use for phone, instead use 99230-90) [facility] [place] Migraine, unspecified, not intractable, without status migrainosusType 2 diabetes mellitus with other specified 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Hyperlipidemia, unspecifiedUnspecified dementia without behavioral disturbanceMajor depressive disorder, recurrent, moderateOveractive bladderObesity, unspecifiedAnxiety disorder, unspecified Estab. patient 30-39min; chronic exacerbation, 2 stable chronic or 1 acute illness add add modifier 95 for video, (do not use for phone, instead use 46297-84) [facility] [place] Estab. patient 30-39min; chronic exacerbation, 2 stable chronic or 1 acute illness add add modifier 95 for video, (do not use for phone, instead use 77591-17) [facility] [place] Estab. patient 30-39min; chronic exacerbation, 2 stable chronic or 1 acute illness add add modifier 95 for video, (do not use for phone, instead use 34469-15) [facility] [place] Estab. patient 30-39min; chronic exacerbation, 2 stable chronic or 1 acute illness add add modifier 95 for video, (do not use for phone, instead use 47050-95) [facility] [place] Estab. patient 30-39min; chronic exacerbation, 2 stable chronic or 1 acute illness add add modifier 95 for video, (do not use for phone, instead use 49719-95) [facility] [place] Estab. patient 30-39min; chronic exacerbation, 2 stable chronic or 1 acute illness add add modifier 95 for video, (do not use for phone, instead use 55417-16) [facility] [place] Estab. patient 30-39min; chronic exacerbation, 2 stable chronic or 1 acute illness add add modifier 95 for video, (do not use for phone, instead use 63852-78) [facility] [place] Estab. patient 30-39min; chronic exacerbation, 2 stable chronic or 1 acute illness add add modifier 95 for video, (do not use for phone, instead use 49330-14) [facility] [place] 05[place] Estab. patient 30-39min; chronic exacerbation, 2 stable chronic or 1 acute illness add add modifier 95 for video, (do not use for phone, instead use 98132-89) [facility] [place] Estab. patient 30-39min; chronic exacerbation, 2 stable chronic or 1 acute illness add add modifier 95 for video, (do not use for phone, instead use 49297-18) [facility] [place]24 Migraine, unspecified, not [...] (do not use for phone, instead use 69737-12) [facility] [place] Estab. patient 30-39min; chronic exacerbation, 2 stable chronic or 1 acute illness add add modifier 95 for video, (do not use for phone, instead use 68164-42) [facility] [place] Estab. patient 30-39min; chronic exacerbation, 2 stable chronic or 1 acute illness add add modifier 95 for video, (do not use for phone, instead use 03400-70) [facility] [place] Estab. patient 30-39min; chronic exacerbation, 2 stable chronic or 1 acute illness add add modifier 95 for video, (do not use for phone, instead use 43844-23) [facility] [place] Estab. patient 30-39min; chronic exacerbation, 2 stable chronic or 1 acute illness add add modifier 95 for video, (do not use for phone, instead use 38506-67) [facility] [place] Estab. patient 30-39min; chronic exacerbation, 2 stable chronic or 1 acute illness add add modifier 95 for video, (do not use for phone, instead use 07633-70) [facility] [place] Estab. patient 30-39min; chronic exacerbation, 2 stable chronic or 1 acute illness add add modifier 95 for video, (do not use for phone, instead use 10095-08) [facility] [place] Estab. patient 30-39min; chronic exacerbation, 2 stable chronic or 1 acute illness add add modifier 95 for video, (do not use for phone, instead use 34004-21) [facility] [place] Estab. patient 30-39min; chronic exacerbation, 2 stable chronic or 1 acute illness add add modifier 95 for video, (do not use for phone, instead use 71205-47) [facility] [place] Estab. patient 20-29min; 1 stable chronic or 2 minor; add add modifier 95 for video, modifier 93 for phone [facility] [place]2024 Migraine, unspecified, not intractable, [...] 95 for video, modifier 93 for phone [facility] [place] Estab. patient 20-29min; 1 stable chronic or 2 minor; add add modifier 95 for video, modifier 93 for phone [facility] [place] Estab. patient 20-29min; 1 stable chronic or 2 minor; add add modifier 95 for video, modifier 93 for phone [facility] [place] Estab. patient 20-29min; 1 stable chronic or 2 minor; add add modifier 95 for video, modifier 93 for phone [facility] [place] Estab. patient 20-29min; 1 stable chronic or 2 minor; add add modifier 95 for video, modifier 93 for phone [facility] [place] Estab. patient 20-29min; 1 stable chronic or 2 minor; add add modifier 95 for video, modifier 93 for phone [facility] [place] 12/13/2024 Vital Signs Date of [...] tive Time Current Smoking Status Never smoker 2025-05-14 2 Sex Female Gender identity Woman History [...] (do not use for phone, instead use 61555-72) [id number] 2022-08-13 No Data Available No Data Availa ble Estab. patient 30-39min; chronic exacerbation, 2 stable chronic or 1 acute illness add add modifier 95 for video, (do not use for phone, instead use 14488-75) 98995 2023-05-22 No Data Available No Data Availa [...] (do not use for phone, instead use 12113-44) 07902 2024-01-30 No Data Available No Data Availa [...] 95 for video, modifier 93 for phone 01399 2024-12-13 No Data Available No Data Availa [...] education needs that may arise.Has omnipod insulin okisD6A 7.7% last monthBlood sugar varies, since adding Trulicity is not as highEndocrinology - Neil Fanggalart monthlyNeurology - Dr. MolinaRosuvastatin 40mg dailyDrRogerio Nava AquillinoDonepezil 10mg dailyMirtazepine 30mg QHSQuetiapine 75 QHSNeurology - Vanita CastrejonenOxybutynin dailyMyrbetriq dailyUrology - Dr. Trip Goetz, sees Myah Elder NP at same office at times.BMI 34.39Clonazepam 0.75mg DailyDaughter reports depression and anxiety is controlled well with medicationsJEAN-PIERRE BURGSO-CContinue seeing all providers as recommendedTake all medications [...] arise.Emgality monthlyNeurology - Dr. Magallanes omnipod insulin fhfxH1L 7.7% last monthBlood sugar varies, since adding [...] Dr. JohnsonRosuvastatin, Lantus, Humalog Has omnipod insulin nptqT9Y 7.7% Monitor BG routinely, low carb diet, [...] on 12/09/24.StableRosuvastatin, Lantus, Humalog Has omnipod insulin sgpmY4Y 7.7% Monitor BG routinely, low carb diet, [...] Social history. 2024-12-13 <add details of Adva nee Care Planning conversation using .Full Code 2024-12-13 Most recent hospital stay(s) or ER visit(s) and precipitating factors: Denies 2024-12-13 Open HEDIS Josie san: Reviewed
--- OUTSIDE RECORDS SUMMARY | 2025-06-03 10:49 | XMS_ITS | Clinical Summary ---
Author Organization [facility] Address [address] [address] Phone Care Team Providers Care Environmental Permitting Specialist Name Role Phone Elijah Hunter MD Primary Care Provider [phone] Social History Tobacco Use Types Packs/Day Years [...] topic Medical Devices Not on file Insurance [facility] MEDICARE REPLACEMENT Member Subscriber Plan / Payer (Ef fective 2018-Present) Name:Debo Malcolm Relation to Subscriber:Self Name:Debo Malcolm Payer ID:[id number] (NAIC) Group ID:[id number] Type:Medicare Address: [place] [id number] [place] [id number] [facility] MEDICARE REPLACEMENT [place] [address] MEDICARE REPLACEMENT MEDICARE REPLACEMENT [facility] MEDICARE REPLACEMENT [place] [address] MEDICARE REPLACEMENT [facility] MEDICARE REPLACEMENT Member Subscriber Plan / Payer (Ef fective 2018-Present) Name:Debo Malcolm Relation to Subscriber:Self Name:Debo Malcolm Payer ID:[id number] (NAIC) Group ID:[id number] Type:Medicare Address: [place] [id number] [employer] MED[employer] REPLACEMENT Care Teams Environmental Permitting Specialist Relationship Specialty Start Date End Date Elijah Hunter MD [address] [place] [address] [place] [address] PCP - General Internal Medicine 08/02/19 Additional Source Comments The information contained in this document represents components of the legal health record. It is not the complete legal health record.[facility]
--- NOTE | 2025-06-03 11:35 | MHC.OFFVIS ---
Intake Visit Reasons: Discuss botox Intake Note: Patient is present for botox discussion Urology Medication:myrbetriq Antibiotic Allergy:penicillin Blood Thinner:aspirin Transformer Mechanic Required: No Allergies francisco Allergy (Severe, Verified 06/03/25 11:36) Rash Penicillins Allergy (Intermediate, Verified 06/03/25 11:36) RASH/HIVES Medication List - Last Reconciled 06/03/25 by Charlie Jones MD [DDisposable Underwear Heavy Absorbency Large (2) - Personal As directed] [Disposable Underpad 30 x 30 Heavy Flow As directed] [ADULT DIAPERS/BRIEFS As directed] aspirin 81 mg PO DAILY atogepant (Qulipta) 30 mg PO DAILY betamethasone dipropionate 0.05% 1 appl topical DAILY bisacodyl (Laxative (bisacodyl)) 10 mg (2 x 5 mg) PO BEDTIME blood sugar diagnostic (OneTouch Ultra Test strips) 4 times daily for sensor failure or to confirm sensor reading blood-glucose meter dispense as one touch ultra to go with one touch ultra strips blood-glucose sensor ([place]ungo G7 Sensor device) every 10 days blood-glucose,creative project manager,cont ([employer] G7 Ethics Officer) As directed cholecalciferol (vitamin D3) 125 mcg PO DAILY clonazepam 1 mg PO BEDTIME compr.stocking,knee,long,large As directed diaper,brief,adult,disposable (Overnight Underwear Large) As directed PULL UPS donepezil 5 mg PO DAILY dorzolamide-timolol (PF) 2-0.5 % 1 drp ophthalmic (eye) BID fluoxetine 20 mg PO BID fluticasone propionate 50 mcg/actuation 2 sprays intranasal DAILY PRN gabapentin 300 mg PO TID 30 days hydroxyzine HCl 25 mg PO TID PRN insulin glargine (Lantus Solostar U-100 Insulin) 9 units (0.09 mL) subcut QPM PRN 30 days insulin lispro (Humalog U-100 Insulin) 0 - 76 units (0 - 0.76 mL) subcut DAILY insulin pump cart,auto,BT,G6/7 (Omnipod 5 G6-G7 Pods (Gen 5) subcutaneous cartridge) As directed every 3 days insulin pump cart,auto,BT-cntr (Omnipod 5 G6 Intro Kit (Gen 5) subcutaneous cartridge with controller) As directed insulin syringe-needle U-100 As directed up to quid for pump failure or glucose correction lancets as directed qid to go with one touch ultra stips latanoprostene bunod 0.024% (Vyzulta) 1 drp ophthalmic (eye) BEDTIME levothyroxine 125 mcg PO QAM magnesium oxide 400 mg PO BEDTIME melatonin 6 mg PO BEDTIME PRN methylcellulose (laxative) (Fiber Therapy (methylcellulose)) 1,000 mg (2 x 500 mg) PO DAILY PRN midodrine 10 mg PO TID mirtazapine 30 mg PO QPM miscellaneous medical supply Wipes miscellaneous; 100 wipebox/ 3 boxes mupirocin 2% 1 appl topical BID nitrofurantoin monohyd/m-cryst 100 mg (Macrobid) 100 mg PO BID 7 days pen needle, diabetic (Comfort EZ Pen [place]) As directed injects 4 times a day [Personal Cleansing Wipes (2) As directed] plecanatide (Trulance) 3 mg PO DAILY quetiapine 75 mg PO BEDTIME rabeprazole 20 mg PO BID rosuvastatin 40 mg PO DAILY NS scopolamine base 1 patch transdermal Q3D PRN simethicone (Anti-Gas Ultra Strength) 180 mg PO QID Trulicity (dulaglutide) 0.75 mg (0.5 mL) subcut QWEEK 28 days NS [UNDERPADS As directed] vibegron (Gemtesa) 75 mg PO DAILY HPI Comments Details: 06/03/25--Debo is a 69-year-old female who presents today to the office for a follow-up. s/p Botox 200 units on 07/2024. The patient is with her daughter who interprets for her. She states the she is leaking more again. She has also been on Myrbetriq 50 mg daily. She complains of dysuria over the last week. Urinalysis leukocytes present, nitrites negative blood negative. I will empirically start Macrobid b.i.d. for 7 days pending urine culture. I will change from Myrbetriq to Gemtesa and schedule repeat Botox 200 units. 06/09/24-Debo is a 69-year-old female who presents today to the office for a follow-up. s/p Botox 200 units on 03/09/2024. The patient is with her daughter who interprets for her. She states the she had less leakage after the procedure. Will cont bladder tx with Botox 200 units every 4-6 months. 02/16/2024--Debo is a 69-year-old female who presents today to the office for a follow-up. She had repeat Botox 100 units on 11/25/2023. The patient is with her daughter who interprets for her. She states that she continues to leak. She is getting the urge every 1-1/2 hours and leaks before getting to the bathroom and needs to change her pull up several times during the day. She denies dysuria. The patient voided prior to coming into the office room. Bladder scan PVR 0 mL. Comorbidity diabetes. Plan discussed Botox 200 units. 11/13/23---Debo is followed for OAB, spastic neurogenic bladder with a past medical history of anxiety, dementia, CVA, diabetic neuropathy, HLD, HTN, insomnia, diabetes, osteoarthritis, thyroid disease. She was last seen by me on 06/09/23 for urinary frequency. She was treated for a UTI at that time. She has had bladder Botox injection 100 units on 10/08/2022. She had improvement in her bladder symptoms. She failed PO bladder meds in the past. She is on Myrbetriq 50 mg daily and continues to leak with associated urge. Schedule Botox Bladder injection 100 units under MAC. Consent obtained. Pt to start bactrim DS 2 days prior to botox procedure. I reviewed the renal US results from 09/30/2022 revealed normal findings. I reviewed the urine culture results from 11/07/2022 revealed 10,000 to 50,000 cfu/mL mixed bacterial lin. [facility] Medical History Elevated LFTs Type 2 diabetes mellitus with diabetic polyneuropathy Abdominal pain Simple ovarian cyst Diabetes type 2, uncontrolled Overactive bladder Diabetes mellitus Urge incontinence of urine Uninhibited neurogenic bladder Delayed gastric emptying Type 2 diabetes mellitus 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, with assisted current use of insulin pump Type 2 diabetes mellitus 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 Nausea and vomiting Sinusitis History of stroke Colon cancer screening Right ankle swelling Cellulitis of right lower leg Swelling of right lower extremity Left leg pain Left ankle sprain Ankle fracture, left Chronic pain syndrome Dementia 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 Diabetic neuropathy UTI (urinary tract infection) Insomnia Glaucoma Migraine Acquired hypothyroidism Hearing impairment CVA (cerebral vascular accident) Blind left eye Localized swelling, mass and lump, neck Urinary tract infection with pyuria Elevated liver enzymes Depression Anxiety Urinary incontinence in female Dementia Osteoarthritis Lumbar spondylosis Pure hypercholesterolemia Pain of right thumb Allergic rhinitis Hypertension Obesity (BMI 30-39.9) Vitamin D deficiency Dyslipidemia Diabetic polyneuropathy associated with type 2 diabetes mellitus Diabetic 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 type 2 diabetes mellitus USP (current) use of insulin Right sided abdominal pain Dizziness and giddiness Orthostatic hypotension Charmaine albicans infection Surgical History History of carpal tunnel release History of pubovaginal sling Hx of eye surgery Hx of cystoscopy Hx of hysterectomy Hx of cholecystectomy History of esophagogastroduodenoscopy (EGD) Hx of colonoscopy Family History Father Diabetes Mother Heart problem Brother Diabetes Social History Housing: Apartment Are you a primary daycare director to a significant other at home: No Do you presently have visiting nurse or other home services: No Alcohol intake: never Patient Tobacco Use Status: Never used Tobacco e-Cigarette/Vaping Use: Never Used Second Hand Smoke Exposure: No service: No Current occupational status: disabled Gender identity: Female Cognitive needs: Yes (Cane, walker) Hearing needs: No Vision needs: Yes (Glasses) Female Reproductive History Menstrual Age of Menarche: 10 Review of Systems Const All systems reviewed & are unremarkable except as noted in HPI and below Reports no additional complaints Eyes Reports no additional complaints ENT Reports no additional complaints Card Reports no additional complaints Resp Reports no additional complaints GI Reports no additional complaints Reports as per HPI Musc Reports no additional complaints Skin/Breast Reports system reviewed and no additional complaints, except as documented Neuro Reports no additional complaints Psych Reports no additional complaints Endo Reports no additional complaints Ethan/Lymph Reports no additional complaints Aller/Immun Reports no additional complaints Assessment & Plan Assessment & Plan (1) Urge incontinence of urine: Code(s): N39.41 - Urge incontinence Category: Medical (2) Spastic neurogenic bladder: Code(s): N31.8 - Other neuromuscular dysfunction of bladder Category: Medical (3) UTI symptoms: Code(s): R39.9 - Unspecified symptoms and signs involving the genitourinary system Category: Medical Plan She complains of dysuria over the last week. Urinalysis leukocytes present, nitrites negative blood negative. I will empirically start Macrobid b.i.d. for 7 days pending urine culture. I will change from Myrbetriq to Gemtesa and schedule repeat Botox 200 units. Medications: New vibegron (Gemtesa) 75 mg PO DAILY 90 tabs 2RF nitrofurantoin monohyd/m-cryst 100 mg (Macrobid) must administer with a meal/food 100 mg PO BID 14 caps 0RF 7 days Discontinued mirabegron ER (Myrbetriq) Discontinued Reason: Doctor's Order 50 mg PO DAILY 90 tabs 2RF Patient Instructions: The patient had an opportunity to ask questions regarding treatment plan. The patient expressed understanding and agreement with the above treatment plan. The patient is aware they should contact our office by phone for worsening of their current condition or the appearance of new symptoms. Compliance is encouraged with any medications and followup testing that is ordered. It is a privilege to be allowed the opportunity to participate in the urologic care of your patient. If you have any questions or concerns regarding treatment for the above conditions please do not hesitate to contact me. The office telephone contact is [phone]. This note is constructed in part using voice recognition software. While every effort has been made to ensure accuracy surgical consultant errors may have been included. Yours sincerely, Charlie Jones MD Coding Level of Care Code Est Pt Level 4 (73175) Diagnoses Urge incontinence of urine N39.41 Spastic neurogenic bladder N31.8 UTI symptoms R39.9
== END 2025-06-03 12:12 | disposition home or self-care (01) ==
LOC: HO.HUSH 10:47
PROVIDERS: PCP Internal Medicine; Visit Provider Urology
DX: N39.41 Urge incontinence (principal); N31.8 Other neuromuscular dysfunction of bladder; R39.9 Unspecified symptoms and signs involving the genitourinary system; Z13.9 Encounter for screening, unspecified
CPT/HCPCS: 99214

== ENCOUNTER 2025-06-09 15:26 | Outpatient (AMB) | payer OTHER, SELFPAY ==
[2025-06-09 15:29] VITALS: BP 110/60; PULSE 84; TEMP 36.2; O2SAT 96; BMI 27.7
--- NOTE | 2025-06-09 15:29 | MHC.PC.OV ---
Vital Signs 06/09/25 15:29 Height 5 ft 1 in Weight 146 lb 6 oz BMI 27.7 BP 110/60 Blood Pressure Location Lt brachial Position Sitting Pulse 84 Pulse Source Pulse Oximeter Temp 97.1 F Temp Source Temporal Artery Scan Pulse Oximetry (%) 96 Oxygen Delivery Method Room Air Intake Visit Reasons: Follow Up Accompanied by: Daughter Allergies francisco Allergy (Severe, Verified 06/09/25 16:04) Rash Penicillins Allergy (Intermediate, Verified 06/09/25 16:04) RASH/HIVES Medication List - Last Reconciled 06/09/25 by Elijah Hunter MD [DDisposable Underwear Heavy Absorbency Large (2) - Personal As directed] [Disposable Underpad 30 x 30 Heavy Flow As directed] [ADULT DIAPERS/BRIEFS As directed] aspirin 81 mg PO DAILY atogepant (Qulipta) 30 mg PO DAILY betamethasone dipropionate 0.05% 1 appl topical DAILY bisacodyl (Laxative (bisacodyl)) 10 mg (2 x 5 mg) PO BEDTIME blood sugar diagnostic (OneTouch Ultra Test strips) 4 times daily for sensor failure or to confirm sensor reading blood-glucose meter dispense as one touch ultra to go with one touch ultra strips blood-glucose sensor (FinanceAcar G7 Sensor device) every 10 days blood-glucose,manager domestic,cont (Dexcom G7 Lead Caregiver) As directed cholecalciferol (vitamin D3) 125 mcg PO DAILY clonazepam 1 mg PO BEDTIME compr.stocking,knee,long,large As directed diaper,brief,adult,disposable (Overnight Underwear Large) As directed PULL UPS donepezil 5 mg PO DAILY dorzolamide-timolol (PF) 2-0.5 % 1 drp ophthalmic (eye) BID fluoxetine 20 mg PO BID fluticasone propionate 50 mcg/actuation 2 sprays intranasal DAILY PRN gabapentin 300 mg PO TID 30 days hydroxyzine HCl 25 mg PO TID PRN insulin glargine (Lantus Solostar U-100 Insulin) 9 units (0.09 mL) subcut QPM PRN 30 days insulin lispro (Humalog U-100 Insulin) 0 - 76 units (0 - 0.76 mL) subcut DAILY insulin pump cart,auto,BT,G6/7 (Omnipod 5 G6-G7 Pods (Gen 5) subcutaneous cartridge) As directed every 3 days insulin pump cart,auto,BT-cntr (Omnipod 5 G6 Intro Kit (Gen 5) subcutaneous cartridge with controller) As directed insulin syringe-needle U-100 As directed up to quid for pump failure or glucose correction lancets as directed qid to go with one touch ultra stips latanoprostene bunod 0.024% (Vyzulta) 1 drp ophthalmic (eye) BEDTIME levothyroxine 125 mcg PO QAM magnesium oxide 400 mg PO BEDTIME melatonin 6 mg PO BEDTIME PRN methylcellulose (laxative) (Fiber Therapy (methylcellulose)) 1,000 mg (2 x 500 mg) PO DAILY PRN midodrine 10 mg PO TID mirtazapine 30 mg PO QPM miscellaneous medical supply Wipes miscellaneous; 100 wipebox/ 3 boxes mupirocin 2% 1 appl topical BID pen needle, diabetic (Comfort EZ Pen [place]) As directed injects 4 times a day [Personal Cleansing Wipes (2) As directed] plecanatide (Trulance) 3 mg PO DAILY quetiapine 75 mg PO BEDTIME rabeprazole 20 mg PO BID rosuvastatin 40 mg PO DAILY NS scopolamine base 1 patch transdermal Q3D PRN simethicone (Anti-Gas Ultra Strength) 180 mg PO QID Trulicity (dulaglutide) 0.75 mg (0.5 mL) subcut QWEEK 28 days NS [UNDERPADS As directed] vibegron (Gemtesa) 75 mg PO DAILY Tobacco use date assessed: 06/09/25 Fall risk assessment: No Falls in past year Last assessed Fall Risk: 06/09/25 Dental Screening Dental Screen Date: 06/09/25 Did you have a dental visit in the last 12 months?: No Did you have a dental problem in the last 6 months where you did not have access to dental care?: No Was dental information given to patient?: Patient declined HPI Follow Up HPI Details Patient comes in today for her follow up visit She appears to have lost some weight lately, which her daughter is attributing to increased anxiety lately due to their ongoing family struggles with regards to custody of patient's , who used to be in a rehab facility but was recently transferred over to a permanent retirement, likely due to his declining cognition (he has dementia) and his frequent falls Patient denies any headaches or dizziness Denies any chest pains, no increased SOB No nausea/vomiting, no abdominal pain No change in bowel habits noted She has no follow up labs done recently [facility] Medical History Elevated LFTs Type 2 diabetes mellitus with diabetic polyneuropathy Abdominal pain Simple ovarian cyst Diabetes type 2, uncontrolled Overactive bladder Diabetes mellitus Urge incontinence of urine Uninhibited neurogenic bladder Delayed gastric emptying Type 2 diabetes mellitus 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, with 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 current use of insulin pump Type 2 diabetes mellitus 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 Nausea and vomiting Sinusitis History of stroke Colon cancer screening Right ankle swelling Cellulitis of right lower leg Swelling of right lower extremity Left leg pain Left ankle sprain Ankle fracture, left Chronic pain syndrome Dementia 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 Diabetic neuropathy UTI (urinary tract infection) Insomnia Glaucoma Migraine Acquired hypothyroidism Hearing impairment CVA (cerebral vascular accident) Blind left eye Localized swelling, mass and lump, neck Urinary tract infection with pyuria Elevated liver enzymes Depression Anxiety Urinary incontinence in female Dementia Osteoarthritis Lumbar spondylosis Pure hypercholesterolemia Pain of right thumb Allergic rhinitis Hypertension Obesity (BMI 30-39.9) Vitamin D deficiency Dyslipidemia Diabetic polyneuropathy associated with type 2 diabetes mellitus Diabetic 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 type 2 diabetes mellitus nursing home (current) use of insulin Right sided abdominal pain Dizziness and giddiness Orthostatic hypotension Charmaine albicans infection Surgical History History of carpal tunnel release History of pubovaginal sling Hx of eye surgery Hx of cystoscopy Hx of hysterectomy Hx of cholecystectomy History of esophagogastroduodenoscopy (EGD) Hx of colonoscopy Family History Father Diabetes Mother Heart problem Brother Diabetes Social History Housing: Apartment Are you a primary specialist wound care to a significant other at home: No Do you presently have visiting nurse or other home services: No Alcohol intake: never Patient Tobacco Use Status: Never used Tobacco e-Cigarette/Vaping Use: Never Used Second Hand Smoke Exposure: No service: No Current occupational status: disabled Gender identity: Female Cognitive needs: Yes (Cane, walker) Hearing needs: No Vision needs: Yes (Glasses) Female Reproductive History Menstrual Age of Menarche: 10 Questionnaire PHQ-9 Over the last 2 weeks, how often have you been bothered by any of the following problems? 1. Little interest or pleasure in doing things: not at all 2. Feeling down, depressed, or hopeless: several days 3. Trouble falling or staying asleep, or sleeping too much: several days 4. Feeling tired or having little energy: more than half the days 5. Poor appetite or overeating: more than half the days 6. Feeling bad about yourself - or that you are a failure or have let yourself or your family down: not at all 7. Trouble concentrating on things, such as reading the newspaper or watching television: more than half the days 8. Moving or speaking so slowly that other people could have noticed. Or the opposite - being so fidgety or restless that you have been moving around a lot more than usual: more than half the days 9. Thoughts that you would be better off or of hurting yourself in some way: not at all Total score: 10 Depression Screening Interpretation: Positive Depression Screening Follow-up: Existing condition and In treatment Depression Screening Done: Yes 63235 - PHQ-9 Billing: Yes Source: Developed by Drs. Neil Wayne, Lakisha Bell, Latrell Serra and colleagues, with an educational sophie from [email or web address]. Thrive Questionnaire Date Thrive assessed: 02/28/25 I am a: Parent/Caregiver What is your living situation today?: I have a steady place to live Within the past 12 months, did the food you bought not last and you didn't have the money to get more?: Sometimes True Within the past 12 months, did you worry whether your food would run out before you got money to buy more?: Sometimes True Do you have trouble paying for medicines?: No Do you have trouble getting transportation to medical appointments?: No Do you have trouble paying your heating and electricity bill?: Yes Do you have trouble taking care of your child, family member or friend?: No Do you have trouble with day-to-day activities such as bathing, preparing meals, shopping, managing finances, etc.?: No Are you currently unemployed and looking for a job?: No Are you interested in more education?: No Please select the resources that you would like help with: Utilities Currently or been in a relationship where the following occur: No concerns reported THRIVE Score: 3 AUDIT C Alcohol Use Questionnaire (AUDIT-C) 1. How often do you have a drink containing alcohol?: Never 3. How often do you have six or more drinks on one occasion?: Never Total Score: 0 Score Reviewed/Action Taken: Yes REJI-7 AMB Questionnaire REJI-7 Date REJI - 7 assessed: 02/28/25 Feeling nervous, anxious, or on edge: 1 = Several days Not being able to stop or control worryin = Several days Worrying too much about different things: 1 = Several days Trouble relaxin = Several days Being so restless that it is hard to sit still: 1 = Several days Becoming easily annoyed or irritable: 1 = Several days Feeling afraid as if something awful might happen: 1 = Several days Total REJI-7 score (0-4 normal; 5-9 mild; 10-14 moderate; 15-21 severe): 7 Source: Developed by Drs. Neil Wayne, Lakisha Bell, Latrell Serra and colleagues, with an educational sophie from [email or web address]. Review of Systems Const Details: ROS is obtained primarily through patient's daughter due to patient's dementia as well as limitations due to language barrier Denies chills, Reports fatigue, Denies fever(s), Denies headache(s) (controlled on current Rx) and Reports weight loss Eyes Denies blurry vision, Denies change in vision, Denies irritation and Denies itchy eyes ENT Denies dysphagia, Denies dizziness, Denies otalgia, Denies headache(s) (controlled on current Rx), Reports neck pain (chronic), Denies odynophagia and Denies sore throat Card Denies chest pain, Denies palpitations and Reports dyspnea on exertion (mild) Resp Denies chest congestion, Denies cough, Reports dyspnea on exertion (mild) and Denies wheezing GI Denies abdominal pain, Denies bloating, Reports constipation (chronic - currently controlled on Rx), Denies dysphagia, Denies heartburn, Denies diarrhea, Denies nausea, Denies odynophagia and Denies vomiting Denies hematuria, Denies difficulty voiding, Reports nocturia, Denies dysuria and Reports urinary incontinence Musc Reports back pain, Reports arthralgias (increased lately, especially in her knees - pain feels worse in AM) and Reports neck pain (chronic) Skin/Breast Denies lesions and Denies rash Neuro Denies behavioral changes, Denies dizziness, Denies headache(s) (controlled on current Rx), Reports memory loss and Denies tremor(s) Psych Reports anxiety (increased lately - per daughter), Denies behavioral changes, Reports memory loss and Denies mood swings Endo Reports fatigue and Denies palpitations Ethan/Lymph Denies easy bruising Aller/Immun Denies itchy eyes and Denies wheezing Physical exam (Primary Care) Vital Signs: Last Vital Signs Temp 97.1 F 06/09/25 15:29 Pulse 84 06/09/25 15:29 BP 110/60 06/09/25 15:29 Pulse Ox 96 06/09/25 15:29 Oxygen Delivery Method Room Air 06/09/25 15:29 BMI result Body Mass Index 27.7 Tobacco/Smoking Status: Tobacco use Status Tobacco use date assessed 06/09/25 06/09/25 15:35 Patient Tobacco Use Status Never used Tobacco 06/09/25 15:35 e-Cigarette/Vaping Use Never Used 06/09/25 15:35 PHQ-9: PHQ-9 Score PHQ-9: Total score 10 06/09/25 16:05 Depression Screening Interpretation: Positive Depression Screening Follow-up: Existing condition and In treatment Thrive Assessment: Date of Thrive Assessment Date Thrive assessed 02/28/25 06/09/25 15:35 Currently or been in a relationship where the following occur: No concerns reported Const General: no acute distress and alert HENMT Ears: TM's normal bilaterally and EAC's normal Teeth and gingiva: dentition normal Throat: Yes posterior oropharynx normal and Yes tonsils normal (no TP congestion) Neck Neck: Yes supple and No lymphadenopathy Thyroid: Thyroid normal Resp Auscultation: clear to auscultation bilaterally, no rales and no wheezes Cardio Rate: regular rate Rhythm: regular rhythm Heart sounds: no murmurs GI Palpation (GI): Soft to palpation and nontender Auscultation: normal bowel sounds General: Yes no CVA tenderness Back/Spine/Pelvis Back: no CVA tenderness Cervical Spine: Cervical spine tenderness Thoracic/Lumbar Spine: lumbar spinal tenderness Skin Lesions: no lesions Rashes: no rashes Extrem General: Yes no clubbing, cyanosis or edema Right lower extremity: knee Details: tenderness; no swelling Left lower extremity: knee Details: tenderness; no swelling Results AMB Hemoglobin A1c AMB Hemoglobin A1c 6.3 % Last Edit by Chrissy Norris CMA on 06/09/25 16:12 Results Reviewed Results Reviewed: Laboratory Last Values Hgb A1c (Clinic) 6.3 % (4.0-6.0) H 06/09/25 16:10 Coding Level of Care Code Est Pt Level 4 (79506) Complex EM visit Add On G2211 Diagnoses Type 2 diabetes mellitus with diabetic polyneuropathy, with long-term current use of insulin E11.42; Z79.4 Diabetes mellitus long-term insulin use: with long-term use 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 edema associated with type 2 diabetes mellitus E11.3393 Diabetes mellitus macular edema: without macular edema Diabetic retinopathy severity: with moderate nonproliferative retinopathy Laterality: bilateral Pure hypercholesterolemia E78.00 Migraine without status migrainosus, not intractable, unspecified migraine type G43.909 Intractability: not intractable Migraine type: unspecified Status migrainosus presence: without status migrainosus Dementia 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 F02.81 Gastroesophageal reflux disease without esophagitis K21.9 Esophagitis presence: without esophagitis Chronic idiopathic constipation K59.04 Elevated LFTs R79.89 Acquired hypothyroidism E03.9 Allergic rhinitis, unspecified seasonality, unspecified trigger J30.9 Allergic rhinitis seasonality: unspecified Allergic rhinitis trigger: unspecified Diffuse idiopathic skeletal hyperostosis of cervical spine M48.12 Lumbar spondylosis M47.816 Primary osteoarthritis involving multiple joints M89.49 Osteoarthritis location: multiple joints Osteoarthritis type: primary Vitamin D deficiency E55.9 Osteopenia of neck of femur, unspecified laterality M85.859 Osteopenia location: femoral neck Laterality: unspecified laterality Spastic neurogenic bladder N31.8 Glaucoma of both eyes, unspecified glaucoma type H40.9 Glaucoma type: unspecified Laterality: bilateral Insomnia, unspecified type G47.00 Insomnia type: unspecified Anxiety F41.9 Episode of recurrent major depressive disorder, unspecified depression episode severity F33.9 Active/Remission status: currently active Depression Type: major depressive disorder Major depression episode severity: unspecified Major depression recurrence: recurrent Obesity (BMI 30-39.9) E66.9 Additional Codes PHQ-9 - 71860 - PHQ-9 Billing: Yes ([id number]) Assessment & Plan Assessment & Plan (1) Type 2 diabetes mellitus with diabetic polyneuropathy: Comment: insulin pump Code(s): E11.42 - Type 2 diabetes mellitus with diabetic polyneuropathy Category: Medical Qualifiers: Diabetes mellitus long-term insulin use: with long-term use Qualified Code(s): E11.42 - Type 2 diabetes mellitus with diabetic polyneuropathy; Z79.4 - nursing home (current) use of insulin Plan: Her in-office HgbA1c done today is at 6.3% (HgbA1c was previously at 6.8% a few months ago) - goal is at least <7.0% Reinforced diabetic diet Continue Humalog U-100 0 to 76 units SQ daily via her Omnipod (insulin pump) and Trulicity 0.75 mg SQ once a week Follow up with endocrinology (Dr. Velazquez) as scheduled Will also refer her to podiatry for her diabetic foot exam (2) Diabetic 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 type 2 diabetes mellitus: Code(s): E11.319 - Type 2 diabetes mellitus with unspecified diabetic retinopathy without macular edema Category: Medical Qualifiers: Diabetes mellitus macular edema: without macular edema Diabetic retinopathy severity: with moderate nonproliferative retinopathy Laterality: bilateral Qualified Code(s): E11.3393 - Type 2 diabetes mellitus with moderate nonproliferative diabetic retinopathy without macular edema, bilateral Plan: Reinforced strict diabetes control to help slow down disease progression Follow up with ophthalmology as scheduled (3) Pure hypercholesterolemia: Code(s): E78.00 - Pure hypercholesterolemia, unspecified Category: Medical Plan: Reinforced low cholesterol diet Continue Rosuvastatin 40 mg QD Will recheck her labs and fasting lipids in 4 months for follow up (4) Migraine: Code(s): G43.909 - Migraine, unspecified, not intractable, without status migrainosus Category: Medical Qualifiers: Intractability: not intractable Migraine type: unspecified Status migrainosus presence: without status migrainosus Qualified Code(s): G43.909 - Migraine, unspecified, not intractable, without status migrainosus Plan: Continue Qulipta 30 mg QD - her headaches have been well-controlled on her current Rx Follow up with neurology as scheduled (5) Dementia 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: Comment: Frontotemporal dementia Code(s): F02.81 - Dementia in other diseases classified elsewhere, unspecified severity, with behavioral disturbance Category: Medical Plan: Continue Donepezil 10 mg QD Follow up with neurology as scheduled (6) GERD (gastroesophageal reflux disease): Code(s): K21.9 - Gastro-esophageal reflux disease without esophagitis Category: Medical Qualifiers: Esophagitis presence: without esophagitis Qualified Code(s): K21.9 - Gastro-esophageal reflux disease without esophagitis Plan: Dietary restrictions reinforced Continue Rabeprazole 20 mg BID and Simethicone 180 mg QID PRN (7) Chronic idiopathic constipation: Code(s): K59.04 - Chronic idiopathic constipation Category: Medical Plan: Have again encouraged increased oral fluids and dietary fiber Continue Trulance 3 mg QD, Fiber Therapy 1000 mg QD, Colace 100 mg QD PRN and Bisacodyl 10 mg Q HS PRN Follow up with GI as scheduled (8) Elevated LFTs: Code(s): R79.89 - Other specified abnormal findings of blood chemistry Category: Medical Plan: Her LFTs were still slightly elevated on her most recent labs done a few months ago - this is most likely related to her weight Will continue to monitor her LFTs regularly (9) Acquired hypothyroidism: Code(s): E03.9 - Hypothyroidism, unspecified Category: Medical Plan: Continue Levothyroxine 125 mcg QD Will recheck her TFTs in 4 months for follow up (10) Allergic rhinitis: Code(s): J30.9 - Allergic rhinitis, unspecified Category: Medical Qualifiers: Allergic rhinitis seasonality: unspecified Allergic rhinitis trigger: unspecified Qualified Code(s): J30.9 - Allergic rhinitis, unspecified Plan: Continue Fluticasone 50 mcg nasal spray QD PRN (11) Diffuse idiopathic skeletal hyperostosis of cervical spine: Code(s): M48.12 - Ankylosing hyperostosis [[place]], cervical region Category: Medical Plan: Cervical spine CT done back in 2019 revealed (+) diffuse idiopathic skeletal hyperostosis She was on Tramadol 50 mg Q HS PRN although she has not taken this in a while now as it was not helping She is reportedly doing okay on Gabapentin 300 mg TID at present Follow up with pain management as scheduled (12) Lumbar spondylosis: Code(s): M47.816 - Spondylosis without myelopathy or radiculopathy, lumbar region Category: Medical Plan: Reinforced activity and weight-lifting restrictions Gabapentin also reportedly helps with her low back pain (13) Osteoarthritis: Code(s): M19.90 - Unspecified osteoarthritis, unspecified site Category: Medical Qualifiers: Osteoarthritis location: multiple joints Osteoarthritis type: primary Qualified Code(s): M89.49 - Other hypertrophic osteoarthropathy, multiple sites Plan: Involves multiple joints - have advised patient's daughter that her recent increasing knee pains are also likely due to OA Patient has been using OTC pain patches PRN and OTC Tylenol PRN although she has been cautioned against taking too much Tylenol due to her elevated LFTs in the past Will consider referral to orthopedics if her joint symptoms/pain get worse (14) Vitamin D deficiency: Code(s): E55.9 - Vitamin D deficiency, unspecified Category: Medical Plan: Continue Vitamin D3 125 mcg QD (15) Osteopenia: Code(s): M85.80 - Other specified disorders of bone density and structure, unspecified site Category: Medical Qualifiers: Osteopenia location: femoral neck Laterality: unspecified laterality Qualified Code(s): M85.859 - Other specified disorders of bone density and structure, unspecified thigh Plan: Her BMD done a couple of months ago in March 2025 revealed (+) osteopenia Patient's daughter is advised to make sure she takes her oral Calcium and vitamin D supplements daily - Rx sent (16) Spastic neurogenic bladder: Code(s): N31.8 - Other neuromuscular dysfunction of bladder Category: Medical Plan: Continue Myrbetriq ER 50 mg QD Patient has failed multiple other Rx and urology has reportedly considered injecting Botox into her urinary bladder muscles to help control her symptoms better if Rx are no longer helping Follow up with urology as scheduled (17) Glaucoma: Code(s): H40.9 - Unspecified glaucoma Category: Medical Qualifiers: Glaucoma type: unspecified Laterality: bilateral Qualified Code(s): H40.9 - Unspecified glaucoma Plan: S/P left eye surgery last year Continue Dorzolamide-Timolol 22.3-6.8 mg/ml 1 drop to both eyes BID and Vyzulta 0.024% 1 drop into both eyes Q HS She is also on Xiidra 5% 1 drop to eye BID for dry eyes Follow up with [facility] as scheduled (18) Insomnia: Code(s): G47.00 - Insomnia, unspecified Category: Medical Qualifiers: Insomnia type: unspecified Qualified Code(s): G47.00 - Insomnia, unspecified Plan: Sleep hygiene reinforced Continue Melatonin 6 mg Q HS PRN Mirtazapine and Quetiapine also helps with her sleep at night (19) Anxiety: Code(s): F41.9 - Anxiety disorder, unspecified Category: Medical Plan: Continue Hydroxyzine 25 mg TID PRN and Clonazepam 1 mg Q HS (20) Depression: Code(s): F32.9 - Major depressive disorder, single episode, unspecified Category: Medical Qualifiers: Active/Remission status: currently active Depression Type: major depressive disorder Major depression episode severity: unspecified Major depression recurrence: recurrent Qualified Code(s): F33.9 - Major depressive disorder, recurrent, unspecified Plan: Continue Fluoxetine 20 mg BID, Mirtazapine 30 mg Q HS and Quetiapine 75 mg Q HS Follow up with psychiatry as scheduled (21) Obesity (BMI 30-39.9): Code(s): E66.9 - Obesity, unspecified Category: Medical Plan: Reinforced diet; exercise and weight loss are not realistic in her case given her dementia and multiple medical and physical comorbidities Plan Follow up in 4 months Orders: Orders Hemoglobin A1c 4 Months E11.9 - Type 2 diabetes mellitus without 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s UA CC w/rflx Micro + Cult 4 Months R30.0 - Dysuria Thyroid Stimulating Hormone 4 Months E03.9 - Hypothyroidism, unspecified Vitamin D 25-OH Total 4 Months E55.9 - Vitamin D deficiency, unspecified AMB Hemoglobin A1c 06/09/ Z13.9 - Encounter for screening, unspecified Complete Blood Count Auto Diff 4 Months D64.9 - Anemia, unspecified Comprehensive [place]. Panel Fast 4 Months E78.00 - Pure hypercholesterolemia, unspecified Lipid Panel 4 Months E78.00 - Pure hypercholesterolemia, unspecified Microalbumin, Random (w Creat) 4 Months E11.9 - Type 2 diabetes mellitus without 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s Free T4 (Free Thyroxine) 4 Months E03.9 - Hypothyroidism, unspecified Vitamin B12 and Folate 4 Months E53.8 - Deficiency of other specified B group vitamins Referrals Podiatry Referral E11.9 - Type 2 diabetes mellitus without 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s Medications: New calcium gluconate 60 mg PO DAILY 90 tabs 3RF 90 days Refilled aspirin 81 mg PO DAILY 90 tabs 5RF
--- OUTSIDE RECORDS SUMMARY | 2025-06-09 15:56 | XMS_ITS | Clinical Summary ---
Author Organization [facility] Address [address] [address] Phone Care Team Providers Care Bridge Worker Name Role Phone Elijah Hunter MD Primary Care Provider [phone] Social History Tobacco Use Types Packs/Day Years [...] topic Medical Devices Not on file Insurance [facility] MEDICARE REPLACEMENT Member Subscriber Plan / Payer (Ef fective 2018-Present) Name:Debo Malcolm Relation to Subscriber:Self Name:Debo Malcolm Payer ID:[id number] (NAIC) Group ID:[id number] Type:Medicare Address: [place] [id number] [place] [id number] [facility] MEDICARE REPLACEMENT [place] [address] MEDICARE REPLACEMENT MEDICARE REPLACEMENT [facility] MEDICARE REPLACEMENT [place] [address] MEDICARE REPLACEMENT [facility] MEDICARE REPLACEMENT Member Subscriber Plan / Payer (Ef fective 2018-Present) Name:Debo Malcolm Relation to Subscriber:Self Name:Debo Malcolm Payer ID:[id number] (NAIC) Group ID:[id number] Type:Medicare Address: [place] [id number] [employer] MEDIC[employer] REPLACEMENT Care Teams Bridge Worker Relationship Specialty Start Date End Date Elijah Hunter MD [address] [place] [address] [place] [address] PCP - General Internal Medicine 08/02/19 Additional Source Comments The information contained in this document represents components of the legal health record. It is not the complete legal health record.[facility]
--- OUTSIDE RECORDS SUMMARY | 2025-06-09 15:56 | XMS_ITS ---
Author Name Worthington VP PATIENT,JEWELRY CUTTER,FN P,PHOTOGRAPH ENLARGER, Chasidy Address [address] [place] [id number] Phone [phone] [facility] Care Team Providers Care Side Seam Machine Operator Name Role Phone Chasidy Worthington Unavailable [phone] VANITA MOLINA Unavailable [phone] TRIP GOETZ Unavailable [phone] MYAH ELDER Unavailable [phone] Elijah Hunter Unavailable [phone] DEVIN ESTRELLA Unavailable [phone] XOCHITL TAVAREZ Unavailable [phone] LeijaJanuary Unavailable [phone] Neil Velazquez Unavailable [phone] Reason for Referral Not Available Allergies, adverse [...] AT BEDTIME 2022 No Data Available Nystatin [id number] UNIT/GM Crm APPLY TO AFF ECTED AREA [...] 2023-02-24 2024-01-30 BD UF MICRO PEN NEEDLE [id number] DIRECTED INJECTS 4 TIMES A DAY 2023-03-19 [...] StableRosuvastat in, Lantus, Humalog Has omnipod insulin [id number] 7.7% Monitor BG routinely, low carb diet, [...] Pain Assessment - NO pain present (1126F) [facility] [place] Pain Assessment - NO pain present (1126F) [facility] [place] Pain Assessment - NO pain present (1126F) [facility] [place] Pain Assessment - NO pain present (1126F) [facility] Pain Assessment - NO pain present (1126F) [facility] [place] Pain Assessment - NO pain present (1126F) [facility] Pain Assessment - NO pain present (1126F) [facility] Pain Assessment - NO pain present (1126F) [facility] [place] Pain Assessment - NO pain present (1126F) [facility]20[place] Presence of insulin pump (external) (internal)Migraine, unspecified, not intractable, without status migrainosusType 2 diabetes mellitus with other specified 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Hyperlipidemia, unspecifiedUnspecified dementia without behavioral disturbanceOveractive bladderObesity, unspecifiedMajor depressive disorder, single episode, unspecifiedAnxiety disorder, unspecified Estab. patient 30-39min; chronic exacerbation, 2 stable chronic or 1 acute illness add add modifier 95 for video, (do not use for phone, instead use 14552-62) [facility] [place]2023 Migraine, unspecified, not intractable, without status migrainosusType 2 diabetes mellitus with other specified 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Hyperlipidemia, unspecifiedUnspecified dementia without behavioral disturbanceMajor depressive disorder, recurrent, moderateOveractive bladderObesity, unspecifiedAnxiety disorder, unspecified Estab. patient 30-39min; chronic exacerbation, 2 stable chronic or 1 acute illness add add modifier 95 for video, (do not use for phone, instead use 61774-21) [facility] [place] Estab. patient 30-39min; chronic exacerbation, 2 stable chronic or 1 acute illness add add modifier 95 for video, (do not use for phone, instead use 74896-06) [facility] [place] Estab. patient 30-39min; chronic exacerbation, 2 stable chronic or 1 acute illness add add modifier 95 for video, (do not use for phone, instead use 65892-68) [facility] [place] Estab. patient 30-39min; chronic exacerbation, 2 stable chronic or 1 acute illness add add modifier 95 for video, (do not use for phone, instead use 32571-21) [facility] [place] Estab. patient 30-39min; chronic exacerbation, 2 stable chronic or 1 acute illness add add modifier 95 for video, (do not use for phone, instead use 85384-65) [facility] [place] Estab. patient 30-39min; chronic exacerbation, 2 stable chronic or 1 acute illness add add modifier 95 for video, (do not use for phone, instead use 04287-45) [facility] [place] Estab. patient 30-39min; chronic exacerbation, 2 stable chronic or 1 acute illness add add modifier 95 for video, (do not use for phone, instead use 71565-67) [facility] [place] Estab. patient 30-39min; chronic exacerbation, 2 stable chronic or 1 acute illness add add modifier 95 for video, (do not use for phone, instead use 40456-75) [facility] [place] 05/22/2023 Estab. patient 30-39min; chronic exacerbation, 2 stable chronic or 1 acute illness add add modifier 95 for video, (do not use for phone, instead use 16270-54) [facility] [place] Estab. patient 30-39min; chronic exacerbation, 2 stable chronic or 1 acute illness add add modifier 95 for video, (do not use for phone, instead use 91474-17) [facility] [place] 01[place]/2024 Migraine, unspecified, not intractable, [...] (do not use for phone, instead use 68152-94) [facility] [place] Estab. patient 30-39min; chronic exacerbation, 2 stable chronic or 1 acute illness add add modifier 95 for video, (do not use for phone, instead use 42032-93) [facility] [place] Estab. patient 30-39min; chronic exacerbation, 2 stable chronic or 1 acute illness add add modifier 95 for video, (do not use for phone, instead use 92022-34) [facility] [place] Estab. patient 30-39min; chronic exacerbation, 2 stable chronic or 1 acute illness add add modifier 95 for video, (do not use for phone, instead use 47360-73) [facility] [place] 01/30/2024 Estab. patient 30-39min; chronic exacerbation, 2 stable chronic or 1 acute illness add add modifier 95 for video, (do not use for phone, instead use 55794-02) [facility] [place] 01/[place]/20[place] Estab. patient 30-39min; chronic exacerbation, 2 stable chronic or 1 acute illness add add modifier 95 for video, (do not use for phone, instead use 43146-16) [facility] [place] 01/30/2024 Estab. patient 30-39min; chronic exacerbation, 2 stable chronic or 1 acute illness add add modifier 95 for video, (do not use for phone, instead use 69138-32) [facility] [place] 01/30/2024 Estab. patient 30-39min; chronic exacerbation, 2 stable chronic or 1 acute illness add add modifier 95 for video, (do not use for phone, instead use 62697-00) [facility] [place] 01/30/2024 Estab. patient 30-39min; chronic exacerbation, 2 stable chronic or 1 acute illness add add modifier 95 for video, (do not use for phone, instead use 78321-66) [facility] [place] 01/[place]/20[place] Estab. patient 20-29min; 1 stable chronic or 2 minor; add add modifier 95 for video, modifier 93 for phone [facility] [place] 12/13/2024 Migraine, unspecified, not intractable, [...] 95 for video, modifier 93 for phone [facility] [place] 12/13/2024 Estab. patient 20-29min; 1 stable chronic or 2 minor; add add modifier 95 for video, modifier 93 for phone [facility] [place] 12/13/2024 Estab. patient 20-29min; 1 stable chronic or 2 minor; add add modifier 95 for video, modifier 93 for phone [facility] [place] 12/13/2024 Estab. patient 20-29min; 1 stable chronic or 2 minor; add add modifier 95 for video, modifier 93 for phone [facility] [place] 12/13/2024 Estab. patient 20-29min; 1 stable chronic or 2 minor; add add modifier 95 for video, modifier 93 for phone [facility] [place] 12/13/2024 Estab. patient 20-29min; 1 stable chronic or 2 minor; add add modifier 95 for video, modifier 93 for phone [facility] [place] 12/13/2024 Vital Signs Date of [...] Time Current Smoking Status Never smoker 2025-05-14 8 Sex Female Gender identity Woman History [...] (do not use for phone, instead use 01133-39) [id number] 2022-08-13 No Data Available No Data Availa ble Estab. patient 30-39min; chronic exacerbation, 2 stable chronic or 1 acute illness add add modifier 95 for video, (do not use for phone, instead use 86445-99) [id number] 2023-05-22 No Data Available No Data Availa [...] (do not use for phone, instead use 89872-61) [id number] 2024-01-30 No Data Available No Data Availa [...] 95 for video, modifier 93 for phone 96263 2024-12-13 No Data Available No Data Availa [...] mellitus ty pe 2, 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, on shelter insulin pumpMigrainesHyperlipidemia associated with type 2 diabetes [...] education needs that may arise.Has omnipod insulin esmuI1N 7.7% last monthBlood sugar varies, since adding [...] arise.Emgality monthlyNeurology - Dr. Magallanes omnipod insulin [id number] 7.7% last monthBlood sugar varies, since adding [...] Dr. JohnsonRosuvastatin, Lantus, Humalog Has omnipod insulin [id number] 7.7% Monitor BG routinely, low carb diet, [...] on 12/09/24.StableRosuvastatin, Lantus, Humalog Has omnipod insulin [id number] 7.7% Monitor BG routinely, low carb diet, [...]
== END 2025-06-09 16:21 | disposition home or self-care (01) ==
LOC: HO.HMCH 15:27
PROVIDERS: PCP Internal Medicine; Visit Provider Internal Medicine
DX: Z13.9 Encounter for screening, unspecified (principal)

== ENCOUNTER → 2025-06-09 15:26 | Outpatient (BNVA) | payer OTHER, SELFPAY | PROVIDERS: PCP Internal Medicine; Visit Provider Internal Medicine | DX: E11.42 Type 2 diabetes mellitus with diabetic polyneuropathy (principal); E11.3393 Type 2 diabetes mellitus with moderate nonproliferative diabetic retinopathy without macular edema, bilateral; E78.00 Pure hypercholesterolemia, unspecified; G43.909 Migraine, unspecified, not intractable, without status migrainosus; K21.9 Gastro-esophageal reflux disease without esophagitis; K59.04 Chronic idiopathic constipation; R79.89 Other specified abnormal findings of blood chemistry; E03.9 Hypothyroidism, unspecified; M48.12 Ankylosing hyperostosis [Forestier], cervical region; M89.49 Other hypertrophic osteoarthropathy, multiple sites; M47.816 Spondylosis without myelopathy or radiculopathy, lumbar region; N31.8 Other neuromuscular dysfunction of bladder; H40.9 Unspecified glaucoma; G47.00 Insomnia, unspecified; F41.9 Anxiety disorder, unspecified; F33.9 Major depressive disorder, recurrent, unspecified; E66.9 Obesity, unspecified; Z68.27 Body mass index [BMI] 27.0-27.9, adult; Z79.4 Long term (current) use of insulin; Z71.3 Dietary counseling and surveillance | CPT/HCPCS: 83036; 96127; 99212 ==

== ENCOUNTER 2025-06-16 11:06 | Outpatient (AMB) | payer OTHER, SELFPAY ==
[2025-06-16 11:14] VITALS: BP 112/62; PULSE 88; O2SAT 97; BMI 27.9
--- NOTE | 2025-06-16 11:14 | A.OFFVIS_ITS ---
Vital Signs 3 06/16/25 11:14 Height 5 ft 1 in Weight 147 lb 11.355 oz BMI 27.9 BP 112/62 Blood Pressure Location Lt brachial Position Sitting Pulse 88 Pulse Source Pulse Oximeter Pulse Oximetry (%) 97 Oxygen Delivery Method Room Air Intake Visit Reasons: T1DM Intake Note: Patient present today for Type 1 Diabetes Mellitus Last Diabetic eye exam: 03/2025 Last Podiatry Visit: Needs a referral Random Glucose: 150 mg/dl HgA1C: 6.3% 06/09/25 Unit Director Required: Yes Unit Director Language: Verifier Services: Unit Director Offered & Declined Accompanied by: Daughter Allergies francisco Allergy (Severe, Verified 06/16/25 11:17) Rash Penicillins Allergy (Intermediate, Verified 06/16/25 11:17) RASH/HIVES Medication List - Last Reconciled 06/16/25 by Lia Mcdowell MD [DDisposable Underwear Heavy Absorbency Large (2) - Personal As directed] [Disposable Underpad 30 x 30 Heavy Flow As directed] [ADULT DIAPERS/BRIEFS As directed] aspirin 81 mg PO DAILY atogepant (Qulipta) 30 mg PO DAILY betamethasone dipropionate 0.05% 1 appl topical DAILY bisacodyl (Laxative (bisacodyl)) 10 mg (2 x 5 mg) PO BEDTIME blood sugar diagnostic (OneTouch Ultra Test strips) 4 times daily for sensor failure or to confirm sensor reading blood-glucose meter dispense as one touch ultra to go with one touch ultra strips blood-glucose sensor (Dexcom G7 Sensor device) every 10 days blood-glucose,tank car reconditioner,cont (Dexcom G7 Paper Products Supervisor) As directed calcium gluconate 60 mg PO DAILY 90 days cholecalciferol (vitamin D3) 125 mcg PO DAILY clonazepam 1 mg PO BEDTIME compr.stocking,knee,long,large As directed diaper,brief,adult,disposable (Overnight Underwear Large) As directed PULL UPS donepezil 5 mg PO DAILY dorzolamide-timolol (PF) 2-0.5 % 1 drp ophthalmic (eye) BID fluoxetine 20 mg PO BID fluticasone propionate 50 mcg/actuation 2 sprays intranasal DAILY PRN gabapentin 300 mg PO TID 30 days hydroxyzine HCl 25 mg PO TID PRN insulin glargine (Lantus Solostar U-100 Insulin) 9 units (0.09 mL) subcut QPM PRN 30 days insulin lispro (Humalog U-100 Insulin) 0 - 76 units (0 - 0.76 mL) subcut DAILY insulin pump cart,auto,BT,G6/7 (Omnipod 5 G6-G7 Pods (Gen 5) subcutaneous cartridge) As directed every 3 days insulin pump cart,auto,BT-cntr (Omnipod 5 G6 Intro Kit (Gen 5) subcutaneous cartridge with controller) As directed insulin syringe-needle U-100 As directed up to quid for pump failure or glucose correction lancets as directed qid to go with one touch ultra stips latanoprostene bunod 0.024% (Vyzulta) 1 drp ophthalmic (eye) BEDTIME levothyroxine 125 mcg PO QAM magnesium oxide 400 mg PO BEDTIME melatonin 6 mg PO BEDTIME PRN methylcellulose (laxative) (Fiber Therapy (methylcellulose)) 1,000 mg (2 x 500 mg) PO DAILY PRN midodrine 10 mg PO TID mirtazapine 30 mg PO QPM miscellaneous medical supply Wipes miscellaneous; 100 wipebox/ 3 boxes mupirocin 2% 1 appl topical BID pen needle, diabetic (Comfort EZ Pen [place]) As directed injects 4 times a day [Personal Cleansing Wipes (2) As directed] plecanatide (Trulance) 3 mg PO DAILY quetiapine 75 mg PO BEDTIME rabeprazole 20 mg PO BID rosuvastatin 40 mg PO DAILY NS scopolamine base 1 patch transdermal Q3D PRN simethicone (Anti-Gas Ultra Strength) 180 mg PO QID Trulicity (dulaglutide) 0.75 mg (0.5 mL) subcut QWEEK 28 days NS [UNDERPADS As directed] vibegron (Gemtesa) 75 mg PO DAILY HPI Comments Details: 70 year old female with type 2 diabetes mellitus with long-term insulin use on Omnipod 5 insulin pump with Dexcom G7, presenting for follow up. Here today with daughter , Mary History of type 2 diabetes mellitus diagnosed 2002 who presents for management of diabetes. Last seen by Taylor Sheriff APRN 03/16/2025 A1C: 06/06 6.3% 03/16/25 7..3% 12/08/24:7 %. A1c end of June 2024 6.1 % Past medical history:DM2 GERD, depression, hypertension, hyperlipidemia, hypothyroidism. Micro and macrovascular 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s: + neuropathy, +background retinopathy, + nephropathy + microalbumin, CVA Humalog via ominipod pump Trulicity mg .75 q.week every Friday Omnipod 5 with Dexcom G7 May 31 to June 13 downloaded G DE in/a Average glucose 176 mg/dL Coefficient of variation 22.6% Within target range 62% High 33% Very-% Low 0% Very low 0% Time CGM active 71.4% Insulin usage 9.4 units per day Total basal: 7.8 units per day, 83% Total bolus: 1.6 units per day, 17% In automated mode 62% In manual mode 38%A Exercise: limited due to balance issues Nutrition - diabetes education: sees CDCES Basal rate(s) (units/hour) : ?12 AM to 12 PM 0 .55 12 PM to 12 AM? 0. .65 Bolus setting Insulin Carbohydrate Ratio (s) 12 AM 1:9 6AM 1:11 11:30 1:9 Correction Factor / Sensitivity Factor 12 AM?40 Active Insulin Time:? 3 hr Target(s): ?12 AM? to 12 PM? 120 mg/dL Correct above 120 mg/dL Last Diabetic eye exam: 03/2025 Last Podiatry Visit: Needs a referral Random Glucose: 150 mg/dl HgA1C: 6.3% 06/09/25 Has neuropathy Symptoms reported: occasional numbness, tingling, cramping in lower extremities daughter trims nails and checkd feet daily Has background retinopathy. Last eye examination: 03/2025 Claudia was referred to retinal specialist: f/u every 4-6 months he would like to watch rtinopathy closely Needs eye lift surgery laser treatment to both eyes 2020 No nephropathy 02/2025tb eGFR>60 03/06 microalbumin /cr ratio 10 Macrovascular disease: h/o cva in the past, no known CAD Hypoglycemia: none recent carries sugar source Hyperglycemia: denies urinary frequency, nocturia, polydypsia Physical exam General: sitting comfortably in no acute distress HEENT: normocephalic/atraumatic, Neck: supple, Cardiac: normal heart sounds Pulm: normal breath sounds B/L, no added breath sounds Abd: not distended, no tenderness Laboratory Tests 07/05/24 02/25/25 02/25/25 12:40 09:19 09:24 Hgb 12.7 Hct 37.6 Plt Count 119 L Creatinine 0.80 0.74 Estimated GFR > 60 > 60 Glucose (Clinic) Hemoglobin A1c % 6.1 H 6.8 H Hgb A1c (Clinic) AST 45 H ALT 43 H Triglycerides 105 Cholesterol 98 108 LDL Cholesterol, Calc 32 38 HDL Cholesterol 45 43 Vitamin B12 397 25-OH Vitamin D Total 41.2 TSH 0.08 L 0.07 L Free T4 1.09 1.09 Urine Creatinine 91.86 Urine Microalbumin 10.0 Microalb/Creat Ratio 10.8 03/16/25 06/09/25 06/16/25 11:23 16:10 11:21 Hgb Hct Plt Count Creatinine Estimated GFR Glucose (Clinic) 150 H Hemoglobin A1c % Hgb A1c (Clinic) 7.3 H 6.3 H AST ALT Triglycerides Cholesterol LDL Cholesterol, Calc HDL Cholesterol Vitamin B12 25-OH Vitamin D Total TSH Free T4 Urine Creatinine Urine Microalbumin Microalb/Creat Ratio [facility] Medical History (Updated 06/16/25 @ 11:53 by Lia Mcdowell MD) Insulin pump in place Elevated LFTs Type 2 diabetes mellitus with diabetic polyneuropathy Abdominal pain Simple ovarian cyst Diabetes type 2, uncontrolled Overactive bladder Diabetes mellitus Urge incontinence of urine Uninhibited neurogenic bladder Delayed gastric emptying Type 2 diabetes mellitus 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, with 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 helper current use of insulin pump Type 2 diabetes mellitus 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 Nausea and vomiting Sinusitis History of stroke Colon cancer screening Right ankle swelling Cellulitis of right lower leg Swelling of right lower extremity Left leg pain Left ankle sprain Ankle fracture, left Chronic pain syndrome Dementia 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 Diabetic neuropathy UTI (urinary tract infection) Insomnia Glaucoma Migraine Acquired hypothyroidism Hearing impairment CVA (cerebral vascular accident) Blind left eye Localized swelling, mass and lump, neck Urinary tract infection with pyuria Elevated liver enzymes Depression Anxiety Urinary incontinence in female Dementia Osteoarthritis Lumbar spondylosis Pure hypercholesterolemia Pain of right thumb Allergic rhinitis Hypertension Obesity (BMI 30-39.9) Vitamin D deficiency Dyslipidemia Diabetic polyneuropathy associated with type 2 diabetes mellitus Diabetic 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 type 2 diabetes mellitus detention (current) use of insulin Right sided abdominal pain Dizziness and giddiness Orthostatic hypotension Charmaine albicans infection Surgical History History of carpal tunnel release History of pubovaginal sling Hx of eye surgery Hx of cystoscopy Hx of hysterectomy Hx of cholecystectomy History of esophagogastroduodenoscopy (EGD) Hx of colonoscopy Family History Father Diabetes Mother Heart problem Brother Diabetes Social History Housing: Apartment Are you a primary home care chaplain to a significant other at home: No Do you presently have visiting nurse or other home services: No Alcohol intake: never Patient Tobacco Use Status: Never used Tobacco e-Cigarette/Vaping Use: Never Used Second Hand Smoke Exposure: No service: No Current occupational status: disabled Gender identity: Female Cognitive needs: Yes (Cane, walker) Hearing needs: No Vision needs: Yes (Glasses) Female Reproductive History Menstrual Age of Menarche: 10 Office Procedures Glucose Monitoring Details Details: See [facility] [address] - Glucose monitoring, continuous-physician I&R Procedure code (CPT) selection complete Assessment & Plan Assessment & Plan (1) Type 2 diabetes mellitus with diabetic polyneuropathy: Comment: insulin pump Code(s): E11.42 - Type 2 diabetes mellitus with diabetic polyneuropathy Category: Medical Qualifiers: Diabetes mellitus fdc insulin use: with fdc use Qualified Code(s): E11.42 - Type 2 diabetes mellitus with diabetic polyneuropathy; Z79.4 - detention (current) use of insulin Plan: 70-year-old with type 2 diabetes mellitus with retinopathy and neuropathy on an Omnipod 5 insulin pump with Dexcom G7 with the Humalog U 100 along with Trulicity 0.75 weekly. A1c May 2025 at 6.3%. She is not entering carbs at all, educated her about entering carbs. Also her issue has been losing connection between the Dexcom G7 and the insulin pump. Currently at the appointment the sensor is functioning, and she is wearing it on the same side. Discussed importance of blue tooth being turned on. I noticed that her manual basal settings are somewhere around 14 units, though based on her insulin use it she is only using about 7 units per day. We will try to being these close together when I see her next. Her major issue has been postprandial hyperglycemia because of not entering carbs at all. Lives with daughter sometimes daughter enters the carbs sometimes patient does. She has an upcoming appointment with Nidia as well in July, reiterated importance of going to that appointment especially with trouble shooting issues regarding the sensor and pump connection. Plan: -continue Trulicity 0.75 mg weekly -no pump settings changed today, in the future plan to decrease manual basal settings to reflect how much she is using an automated mode -continue follow up with the educator especially with sensor issues Note: We do not see patient for her hypothyroidism. Charts he has acquired hypothyroidism but patient denies any radioactive iodine ablation or surgery in the past. 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 Labs from February 2025 showed TSH was low, patient is not a very reliable historian, unclear whether any dose change was made to levothyroxine at that time. PCP manages hypothyroidism, we will loop them in on those of normal labs. I do see from the recent note from May 2025 that they plan to repeat labs prior to next visit to see if any dose adjustments need to be made. (2) Insulin pump in place: Code(s): Z96.41 - Presence of insulin pump (external) (internal) Category: Medical Plan: Has backup Lantus: To inject 9 units in case of pump failure And doses of Humalog t.i.d. pre meals She is incontinent, no use of urine ketone strips Plan I spent 30 minutes in reviewing the record, seeing the patient and documenting in the medical record. Orders: Orders 2 Creatinine Today E11.42 - Type 2 diabetes mellitus with diabetic polyneuropathy, E11.8 - Type 2 diabetes mellitus with unspecified 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s, Z79.4 - tank terminal gauger (current) use of insulin, Z96.41 - Presence of insulin pump (external) (internal) Lipid Panel Today E11.42 - Type 2 diabetes mellitus with diabetic polyneuropathy, E11.8 - Type 2 diabetes mellitus with unspecified 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s, Z79.4 - tank terminal gauger (current) use of insulin, Z96.41 - Presence of insulin pump (external) (internal) Aspartate Amino Transferase Today E11.42 - Type 2 diabetes mellitus with diabetic polyneuropathy, E11.8 - Type 2 diabetes mellitus with unspecified 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s, Z79.4 - tank terminal gauger (current) use of insulin, Z96.41 - Presence of insulin pump (external) (internal) Alanine Aminotransferase Today E11.42 - Type 2 diabetes mellitus with diabetic polyneuropathy, E11.8 - Type 2 diabetes mellitus with unspecified 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s, Z79.4 - tank terminal gauger (current) use of insulin, Z96.41 - Presence of insulin pump (external) (internal) AMB Glucose Monitoring Today E11.8 - Type 2 diabetes mellitus with unspecified 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s, Z96.41 - Presence of insulin pump (external) (internal) TSH reflex Free T4 Today E11.42 - Type 2 diabetes mellitus with diabetic polyneuropathy, E11.8 - Type 2 diabetes mellitus with unspecified 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s, Z79.4 - tank terminal gauger (current) use of insulin, Z96.41 - Presence of insulin pump (external) (internal) Complete Blood Count no Diff Today E11.42 - Type 2 diabetes mellitus with diabetic polyneuropathy, E11.8 - Type 2 diabetes mellitus with unspecified 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s, Z79.4 - tank terminal gauger (current) use of insulin, Z96.41 - Presence of insulin pump (external) (internal) Medications: Refilled 2 Trulicity (dulaglutide) 0.75 mg (0.5 mL) subcut QWEEK 2 mL 7RF 28 days NS Coding Level of Care Code Est Pt Level 4 (86858) Diagnoses Type 2 diabetes mellitus with diabetic polyneuropathy, with long-term current use of insulin E11.42; Z79.4 Diabetes mellitus 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 helper insulin use: with 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 helper use Insulin pump in place Z96.41 CPT Codes Details - CPT: 77452 - Glucose monitoring, continuous-physician I&R ([id number]) Time Spent (min) 30
[2025-06-16 11:24] LABS: Glucose, Whole Blood 150 mg/dL (60-115)
--- OUTSIDE RECORDS SUMMARY | 2025-06-16 12:43 | XMS_ITS ---
Author Name Worthington WELT STITCH CLEANER,MANAGER OF TAX,FN P,CLIP WRAPPER, Chasidy Address [address] [place] [id number] Phone [phone] [facility] Care Team Providers Care Sap Manager Name Role Phone Chasidy Worthington Unavailable [phone] VANITA MOLINA Unavailable [phone] TRIP GOETZ Unavailable [phone] MYAH ELDER Unavailable [phone] Elijah Hunter Unavailable [phone] DEVIN ESTRELLA Unavailable [phone] XOCHITL TAVAREZ Unavailable [phone] LeijaJanuary Unavailable [phone] Neil Velazquez Unavailable [phone] Reason for Referral Not Available Allergies, adverse [...] AT BEDTIME 2022 No Data Available Nystatin [id number] UNIT/GM Crm APPLY TO AFF ECTED AREA [...] 2023-02-24 2024-01-30 BD UF MICRO PEN NEEDLE [id number] DIRECTED INJECTS 4 TIMES A DAY 2023-03-19 [...] StableRosuvastat in, Lantus, Humalog Has omnipod insulin twheO1M 7.7% Monitor BG routinely, low carb diet, [...] Pain Assessment - NO pain present (1126F) [facility] [place]20[place] Pain Assessment - NO pain present (1126F) [facility] [place] Pain Assessment - NO pain present (1126F) [facility] [place] Pain Assessment - NO pain present (1126F) [facility] [place] Pain Assessment - NO pain present (1126F) [facility] [place]20[place] Pain Assessment - NO pain present (1126F) [facility] [place] Pain Assessment - NO pain present (1126F) [facility] [place]20[place] Pain Assessment - NO pain present (1126F) [facility] [place]20[place] Pain Assessment - NO pain present (1126F) [facility] [place]2022 Presence of insulin pump (external) (internal)Migraine, unspecified, not intractable, without status migrainosusType 2 diabetes mellitus with other specified 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Hyperlipidemia, unspecifiedUnspecified dementia without behavioral disturbanceOveractive bladderObesity, unspecifiedMajor depressive disorder, single episode, unspecifiedAnxiety disorder, unspecified Estab. patient 30-39min; chronic exacerbation, 2 stable chronic or 1 acute illness add add modifier 95 for video, (do not use for phone, instead use 59375-69) [facility] [place] 05[place]2023 Migraine, unspecified, not intractable, without status migrainosusType 2 diabetes mellitus with other specified 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Hyperlipidemia, unspecifiedUnspecified dementia without behavioral disturbanceMajor depressive disorder, recurrent, moderateOveractive bladderObesity, unspecifiedAnxiety disorder, unspecified Estab. patient 30-39min; chronic exacerbation, 2 stable chronic or 1 acute illness add add modifier 95 for video, (do not use for phone, instead use 23850-01) [facility] [place] Estab. patient 30-39min; chronic exacerbation, 2 stable chronic or 1 acute illness add add modifier 95 for video, (do not use for phone, instead use 21962-09) [facility] [place]20[place] Estab. patient 30-39min; chronic exacerbation, 2 stable chronic or 1 acute illness add add modifier 95 for video, (do not use for phone, instead use 43216-10) [facility] [place] 05[place]22[place]20[place] Estab. patient 30-39min; chronic exacerbation, 2 stable chronic or 1 acute illness add add modifier 95 for video, (do not use for phone, instead use 75901-63) [facility] [place] 05[place]20[place] Estab. patient 30-39min; chronic exacerbation, 2 stable chronic or 1 acute illness add add modifier 95 for video, (do not use for phone, instead use 57071-72) [facility] [place]/20[place] Estab. patient 30-39min; chronic exacerbation, 2 stable chronic or 1 acute illness add add modifier 95 for video, (do not use for phone, instead use 82688-74) [facility] [place] 05[place]22/2023 Estab. patient 30-39min; chronic exacerbation, 2 stable chronic or 1 acute illness add add modifier 95 for video, (do not use for phone, instead use 18474-98) [facility] [place] 05[place]22/2023 Estab. patient 30-39min; chronic exacerbation, 2 stable chronic or 1 acute illness add add modifier 95 for video, (do not use for phone, instead use 10251-69) [facility] ([place] 05/22/2023 Estab. patient 30-39min; chronic exacerbation, 2 stable chronic or 1 acute illness add add modifier 95 for video, (do not use for phone, instead use 55262-26) [facility] [place] 05[place]22/2023 Estab. patient 30-39min; chronic exacerbation, 2 stable chronic or 1 acute illness add add modifier 95 for video, (do not use for phone, instead use 01630-27) [facility] [place] 01/[place]/2024 Migraine, unspecified, not intractable, [...] (do not use for phone, instead use 22156-78) [facility] [place] 01[place]/20[place] Estab. patient 30-39min; chronic exacerbation, 2 stable chronic or 1 acute illness add add modifier 95 for video, (do not use for phone, instead use 90191-36) [facility] [place] 01/30/20[place] Estab. patient 30-39min; chronic exacerbation, 2 stable chronic or 1 acute illness add add modifier 95 for video, (do not use for phone, instead use 89803-24) [facility] [place] 01/30/2024 Estab. patient 30-39min; chronic exacerbation, 2 stable chronic or 1 acute illness add add modifier 95 for video, (do not use for phone, instead use 17745-71) [facility] [place] 01/30/20[place] Estab. patient 30-39min; chronic exacerbation, 2 stable chronic or 1 acute illness add add modifier 95 for video, (do not use for phone, instead use 87845-12) [facility] [place]/20[place] Estab. patient 30-39min; chronic exacerbation, 2 stable chronic or 1 acute illness add add modifier 95 for video, (do not use for phone, instead use 97920-22) [facility] [place]/20[place] Estab. patient 30-39min; chronic exacerbation, 2 stable chronic or 1 acute illness add add modifier 95 for video, (do not use for phone, instead use 15040-10) [facility] [place]/20[place] Estab. patient 30-39min; chronic exacerbation, 2 stable chronic or 1 acute illness add add modifier 95 for video, (do not use for phone, instead use 68611-60) [facility] [place]/20[place] Estab. patient 30-39min; chronic exacerbation, 2 stable chronic or 1 acute illness add add modifier 95 for video, (do not use for phone, instead use 33517-31) [facility] [place] 01/[place]/20[place] Estab. patient 20-29min; 1 stable chronic or 2 minor; add add modifier 95 for video, modifier 93 for phone [facility] [place] 12/13/2024 Migraine, unspecified, not intractable, [...] 95 for video, modifier 93 for phone [facility] [place] 12/13/2024 Estab. patient 20-29min; 1 stable chronic or 2 minor; add add modifier 95 for video, modifier 93 for phone [facility] [place] 12/13/2024 Estab. patient 20-29min; 1 stable chronic or 2 minor; add add modifier 95 for video, modifier 93 for phone [facility] [place] 12/13/2024 Estab. patient 20-29min; 1 stable chronic or 2 minor; add add modifier 95 for video, modifier 93 for phone [facility] [place] 12/13/2024 Estab. patient 20-29min; 1 stable chronic or 2 minor; add add modifier 95 for video, modifier 93 for phone [facility] [place] 12/13/2024 Estab. patient 20-29min; 1 stable chronic or 2 minor; add add modifier 95 for video, modifier 93 for phone [facility] [place] 12/13/2024 Vital Signs Date of [...] (do not use for phone, instead use 27903-92) [id number] 2022-08-13 No Data Available No Data Availa ble Estab. patient 30-39min; chronic exacerbation, 2 stable chronic or 1 acute illness add add modifier 95 for video, (do not use for phone, instead use 01968-15) [id number] 2023-05-22 No Data Available No Data Availa [...] (do not use for phone, instead use 42540-45) [id number] 2024-01-30 No Data Available No Data Availa [...] 95 for video, modifier 93 for phone [id number] 2024-12-13 No Data Available No Data Availa [...] mellitus ty pe 2, 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, on metal burnisher insulin pumpMigrainesHyperlipidemia associated with type 2 diabetes [...] education needs that may arise.Has omnipod insulin tipzM5P 7.7% last monthBlood sugar varies, since adding [...] arise.Emgality monthlyNeurology - Dr. Magallanes omnipod insulin [id number] 7.7% last monthBlood sugar varies, since adding [...] Dr. JohnsonRosuvastatin, Lantus, Humalog Has omnipod insulin [id number] 7.7% Monitor BG routinely, low carb diet, [...] on 12/09/24.StableRosuvastatin, Lantus, Humalog Has omnipod insulin sdamG1C 7.7% Monitor BG routinely, low carb diet, [...] Social history. 2024-12-13 <add details of Adva tne Care Planning conversation using .Full Code 2024-12-13 Most recent hospital stay(s) or ER visit(s) and precipitating factors: Denies 2024-12-13 Open HEDIS Josie san: Reviewed
--- OUTSIDE RECORDS SUMMARY | 2025-06-16 12:43 | XMS_ITS | Clinical Summary ---
Author Organization [facility] Address [address] [facility] [address] [place] [address] Phone Care Team Providers Care Cricket Coach Name Role Phone Elijah Hunter MD Primary Care Provider [phone] [phone] Social History Tobacco Use Types Packs/Day Years [...] SIGMOIDOSCOPY 1998 VIRTUAL COLONOSCOPY 1998 OSTEOPOROSIS SCREENING INITIAL (ONE-TIME) 2018 PNEUMOCOCCAL VACCINES (50+ years) (2 of 2 - PCV) 06/01/2020 06/01/2019 INFLUENZA VACCINE (#1) 2025 , 08/09/2019, 07/18/2019, Additional history exists COVID-19 VACCINE ( season) 2025 02/26/2021, 02/05/2021 Adult Td,Tdap Booster 08/21/2026 08/21/2016 [...] topic Medical Devices Not on file Insurance [employer] REPLACEMENT [facility] MEDICARE REPLACEMENT [place] [id number] [place] [address] MEDICARE REPLACEMENT [place] [id number] [facility] MEDICARE REPLACEMENT [place] [id number] [facility] MEDICARE REPL[place] [address] MEDICARE REPLACEMENT [facility] MEDICARE REPLACEMENT [employer] REPLACEMENT Care Teams Cricket Coach Relationship Specialty Start Date End Date Elijah Hunter MD [address] [place] [address] [place] [address] PCP - General Internal Medicine 08/02/19 Additional Source Comments The information contained in this document represents components of the legal health record. It is not the complete legal health record.[facility]
== END 2025-06-16 11:43 | disposition home or self-care (01) ==
LOC: HO.ENCR 11:07
PROVIDERS: PCP Internal Medicine; Visit Provider Student in an Organized Health Care Education/Training Program
DX: E11.42 Type 2 diabetes mellitus with diabetic polyneuropathy (principal); Z79.4 Long term (current) use of insulin; Z96.41 Presence of insulin pump (external) (internal)
CPT/HCPCS: 95251; 99214

== ENCOUNTER → 2025-06-16 11:06 | Outpatient (BNVA) | payer OTHER, SELFPAY | PROVIDERS: PCP Internal Medicine; Visit Provider Student in an Organized Health Care Education/Training Program | DX: E11.42 Type 2 diabetes mellitus with diabetic polyneuropathy (principal); E11.319 Type 2 diabetes mellitus with unspecified diabetic retinopathy without macular edema; E11.8 Type 2 diabetes mellitus with unspecified 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s; Z79.4 Long term (current) use of insulin; Z96.41 Presence of insulin pump (external) (internal); Z79.85 Long-term (current) use of injectable non-insulin antidiabetic drugs | CPT/HCPCS: 82947; 99212 ==

== ENCOUNTER 2025-07-11 11:43 | Outpatient (REF) | payer OTHER, SELFPAY ==
[2025-07-11 12:14] LABS: MANUAL DIFF FLAG NO
[2025-07-11 12:31] LABS: Hematocrit 36.0 % (37.0-47.0); Hemoglobin 12.3 g/dl (12.0-16.0); Imm Gran Abs Auto 0.01 X10*3/uL (0.00-0.03); Imm Gran Pct Auto 0.2 % (0.0-0.4); Lymphocytes Absolute Auto 1.4 X10*3/uL (1.2-4.9); Mean Corpuscular HGB Conc 34.2 g/dl (31.0-35.0); Mean Corpuscular Hemoglobin 30.5 pg (27.0-33.0); Mean Corpuscular Volume 89.3 fL (80.0-98.0); NRBC Abs Auto 0.000 X10*3/uL (0.0-0.012); NRBC Pct Auto 0.0 /100WBC (0.0-0.2); Platelet Count 117 X10*3/uL (160-400); Red Blood Count 4.03 X10*6/uL (4.20-5.50); White Blood Count 4.1 X10*3/uL (4.8-10.8)
[2025-07-11 13:06] LABS: Alanine Aminotransferase 21 U/L (0-31); Albumin Level 4.0 g/dL (3.5-5.0); Alkaline Phosphatase 127 U/L (39-117); Anion Gap 10 (12-20); Aspartate Amino Transferase 34 U/L (5-31); Blood Urea Nitrogen 23 mg/dL (9-16); Calcium 9.5 mg/dL (8.4-10.2); Carbon Dioxide 29 mmol/L (22-29); Chloride 108 mmol/L (96-108); Cholesterol 101 mg/dL (<200); Estimated Glomerular Filt Rate > 60; HDL Cholesterol 45 mg/dL (>40); Potassium 4.6 mmol/L (3.3-5.1); Sodium 142 mmol/L (135-145); Total Protein 6.9 g/dL (6.5-8.0); Triglycerides 98 mg/dL (<150)
--- OUTSIDE RECORDS SUMMARY | 2025-07-11 13:12 | XMS_ITS | Clinical Summary ---
Author Organization [facility] Address [address] [facility] [address] [place] [address] Phone Care Team Providers Care Jboss Developer Name Role Phone Elijah Hunter MD Primary Care Provider [phone] Social History Tobacco Use Types Packs/Day Years [...] topic Medical Devices Not on file Insurance [facility] DUAL MEDICARE REPLACEMENT [facility] DUAL MEDICARE REPLACEMENT [place] [id number] [facility] DUAL MEDICARE REPLACEMENT [place] [id number] [facility] DUAL MEDICARE REPLACEMENT [facility] DUAL MEDICARE REPLACEMENT [place] [id number] [facility] DUAL MEDICARE REPLACEMENT [place] [id number] [facility] DUAL MEDICARE REPLACEMENT [facility] DUAL MEDICARE REPLACEMENT [facility] DUAL MEDICARE REPLACEMENT Care Teams Jboss Developer Relationship Specialty Start Date End Date Elijah Hunter MD [address] [place] [address] Dr Ramirez [place] [address] PCP - General Internal Medicine 08/02/19 Additional Source Comments The information contained in this document represents components of the legal health record. It is not the complete legal health record.[facility]
--- OUTSIDE RECORDS SUMMARY | 2025-07-11 13:12 | XMS_ITS ---
Author Name Agatha Mayorga NP Address [address] [place] [address] Phone [phone] [facility] Care Team Providers Care Efficiency Engineer Name Role Phone Agatha Mayorga Unavailable [phone] VANITA MOLINA Unavailable [phone] TRIP GOETZ Unavailable [phone] MYAH ELDER Unavailable [phone] Elijah Hunter Unavailable [phone] DEVIN ESTRELLA Unavailable [phone] XOCHITL TAVAREZ Unavailable [phone] January Unavailable [phone] Neil Velazquez Unavailable [phone] Reason for Referral Not Available Allergies, adverse [...] AT BEDTIME 2022 No Data Available Nystatin 738930 UNIT/GM Crm APPLY TO AFF ECTED AREA [...] 2023-02-24 2024-01-30 BD UF MICRO PEN NEEDLE [id number] DIRECTED INJECTS 4 TIMES A DAY 2023-03-19 [...] continue f/u care with Neurology - Dr. Molina3 : Continue current treatment plan as directed. [...] StableRosuvastat in, Lantus, Humalog Has omnipod insulin sbwbN0P 7.7% Monitor BG routinely, low carb diet, [...] Assessment - NO pain present (1126F) [facility] [place] Pain Assessment - NO pain present (1126F) [facility] [place] Pain Assessment - NO pain present (1126F) [facility] [place] Pain Assessment - NO pain present (1126F) [facility] [place] Pain Assessment - NO pain present (1126F) [facility] [place] Pain Assessment - NO pain present (1126F) [facility] [place] Pain Assessment - NO pain present (1126F) [facility] [place] Pain Assessment - NO pain present (1126F) [facility] [place] Pain Assessment - NO pain present (1126F) [facility] [place] Presence of insulin pump (external) (internal)Migraine, unspecified, not intractable, without status migrainosusType 2 diabetes mellitus with other specified 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Hyperlipidemia, unspecifiedUnspecified dementia without behavioral disturbanceOveractive bladderObesity, unspecifiedMajor depressive disorder, single episode, unspecifiedAnxiety disorder, unspecified Estab. patient 30-39min; chronic exacerbation, 2 stable chronic or 1 acute illness add add modifier 95 for video, (do not use for phone, instead use 18573-45) [facility] [place]20[place] Migraine, unspecified, not intractable, without status migrainosusType 2 diabetes mellitus with other specified 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Hyperlipidemia, unspecifiedUnspecified dementia without behavioral disturbanceMajor depressive disorder, recurrent, moderateOveractive bladderObesity, unspecifiedAnxiety disorder, unspecified Estab. patient 30-39min; chronic exacerbation, 2 stable chronic or 1 acute illness add add modifier 95 for video, (do not use for phone, instead use 38082-94) [facility] Estab. patient 30-39min; chronic exacerbation, 2 stable chronic or 1 acute illness add add modifier 95 for video, (do not use for phone, instead use 40176-38) [facility] [place] Estab. patient 30-39min; chronic exacerbation, 2 stable chronic or 1 acute illness add add modifier 95 for video, (do not use for phone, instead use 75836-00) [facility] [place] Estab. patient 30-39min; chronic exacerbation, 2 stable chronic or 1 acute illness add add modifier 95 for video, (do not use for phone, instead use 24068-95) [facility] [place] Estab. patient 30-39min; chronic exacerbation, 2 stable chronic or 1 acute illness add add modifier 95 for video, (do not use for phone, instead use 94738-87) [facility] [place] Estab. patient 30-39min; chronic exacerbation, 2 stable chronic or 1 acute illness add add modifier 95 for video, (do not use for phone, instead use 58146-43) [facility] [place] Estab. patient 30-39min; chronic exacerbation, 2 stable chronic or 1 acute illness add add modifier 95 for video, (do not use for phone, instead use 81010-64) [facility] [place] 05[place]/20[place] Estab. patient 30-39min; chronic exacerbation, 2 stable chronic or 1 acute illness add add modifier 95 for video, (do not use for phone, instead use 28415-48) [facility] [place] Estab. patient 30-39min; chronic exacerbation, 2 stable chronic or 1 acute illness add add modifier 95 for video, (do not use for phone, instead use 19302-92) [facility] [place] Estab. patient 30-39min; chronic exacerbation, 2 stable chronic or 1 acute illness add add modifier 95 for video, (do not use for phone, instead use 73618-54) [facility] [place] 01[place]/20[place] Migraine, unspecified, not intractable, without status [...] (do not use for phone, instead use 86100-72) [facility] [place] 01[place]/20[place] Estab. patient 30-39min; chronic exacerbation, 2 stable chronic or 1 acute illness add add modifier 95 for video, (do not use for phone, instead use 15443-67) [facility] [place] Estab. patient 30-39min; chronic exacerbation, 2 stable chronic or 1 acute illness add add modifier 95 for video, (do not use for phone, instead use 75092-54) [facility] [place] Estab. patient 30-39min; chronic exacerbation, 2 stable chronic or 1 acute illness add add modifier 95 for video, (do not use for phone, instead use 96050-83) [facility] [place]20[place] Estab. patient 30-39min; chronic exacerbation, 2 stable chronic or 1 acute illness add add modifier 95 for video, (do not use for phone, instead use 96196-66) [facility] [place] 01[place]20[place] Estab. patient 30-39min; chronic exacerbation, 2 stable chronic or 1 acute illness add add modifier 95 for video, (do not use for phone, instead use 26252-63) [facility] [place]20[place] Estab. patient 30-39min; chronic exacerbation, 2 stable chronic or 1 acute illness add add modifier 95 for video, (do not use for phone, instead use 23937-87) [facility] [place]/20[place] Estab. patient 30-39min; chronic exacerbation, 2 stable chronic or 1 acute illness add add modifier 95 for video, (do not use for phone, instead use 50313-20) [facility] [place]/20[place] Estab. patient 30-39min; chronic exacerbation, 2 stable chronic or 1 acute illness add add modifier 95 for video, (do not use for phone, instead use 04836-62) [facility] [place] Estab. patient 20-29min; 1 stable chronic or 2 minor; add add modifier 95 for video, modifier [address] [facility] [place]/2024 Migraine, unspecified, not intractable, without status [...] for video, modifier [address] [facility] [place] 12/13/20[place] Estab. patient 20-29min; 1 stable chronic or 2 minor; add add modifier 95 for video, modifier 93 for phone [facility] [place] Estab. patient 20-29min; 1 stable chronic or 2 minor; add add modifier 95 for video, modifier 93 for phone [facility] [place] 12/13/2024 Estab. patient 20-29min; 1 stable chronic or 2 minor; add add modifier 95 for video, modifier [address] [facility] [place] Estab. patient 20-29min; 1 stable chronic or 2 minor; add add modifier 95 for video, modifier [address] [facility] [place] Estab. patient 20-29min; 1 stable chronic or 2 minor; add add modifier 95 for video, modifier [address] [facility] [place]20[place] Vital Signs Date of Collection Vitals [...] tive Time Current Smoking Status Never smoker 2025-06-14 9 Sex Female Gender identity Woman History [...] SBP 130-139 (3075F) 3075F 2022-08-13 No Data Availab le No Data Available DBP <80 (3078F) 3078F 2022-08-13 No Data Available No Data Available New patient,40-59min; chronic exacerbation, 2 stable chronic or 1 acute illness add add modifier 95 for video (do not use for phone, instead use 41309-40) 23010 2022-08-13 No Data Available No Data Availa ble Estab. patient 30-39min; chronic exacerbation, 2 stable chronic or 1 acute illness add add modifier 95 for video, (do not use for phone, instead use 60820-45) 04912 2023-05-22 No Data Available No Data Availa [...] (do not use for phone, instead use 24272-14) 549[address] 2024-01-30 No Data Available No Data Availa [...] 95 for video, modifier 93 for phone 27291 2024-12-13 No Data Available No Data Availa [...] ty pe 2, 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, on terminal computer operator insulin pumpMigrainesHyperlipidemia associated with type 2 diabetes [...] education needs that may arise.Has omnipod insulin qimvS9V 7.7% last monthBlood sugar varies, since adding [...] arise.Emgality monthlyNeurology - Dr. Magallanes omnipod insulin faieM9I 7.7% last monthBlood sugar varies, since adding [...] Dr. JohnsonRosuvastatin, Lantus, Humalog Has omnipod insulin hwzpK1D 7.7% Monitor BG routinely, low carb diet, [...] on 12/09/24.StableRosuvastatin, Lantus, Humalog Has omnipod insulin xwiaR3V 7.7% Monitor BG routinely, low carb diet, exercise as tolerable and continue with PCP and Endocrinology - Neil Landa Elijah Femi12/13/24 : BG this a.m. 105. A1c last month- 5.7 % per daughter's report. Continue current treatment plan as directed. Had a f/u with PCP on 12/07/24.StableDonepezil, Mirtazepine, QuetiapineDenies safety concerns Monitor for safety, fall risk precautions, MMSE routinely, and continue f/u care with Neurology - Vanita Molina3 : Continue current treatment plan as directed. [...] history, Social history. 2024-12-13 <add details of Mj ruff Care Planning conversation using .Full Code 2024-12-13 Most recent hospital stay(s) or ER visit(s) and precipitating factors: Denies 2024-12-13 Open HEDIS Measure milad san: Reviewed
[2025-07-11 13:29] LABS: Free T4 (Free Thyroxine) 1.30 ng/dL (0.71-1.85); Thyroid Stimulating Hormone < 0.01 uIU/mL (0.32-4.0)
[2025-07-11 13:33] LABS: Folate 9.8 ng/mL (> or = 4.0); Vitamin B12 307 pg/mL (200-900)
[2025-07-11 14:01] LABS: Appearance Urine Clear; Glucose Urine UA Negative (Negative); PH 7.5 (5.0-9.0); Specific Gravity - Urine 1.020 (1.005-1.025); UMIC TRIGGER UACC YES
[2025-07-11 19:03] LABS: Microalbum/Creatinine Ratio Ur 11.1 ug/mg cr (<30)
== END 2025-07-11 11:44 | disposition home or self-care (01) ==
LOC: HO.LAB 11:43
PROVIDERS: Absent Provider Student in an Organized Health Care Education/Training Program; PCP Internal Medicine; Visit Provider Internal Medicine
DX: E11.9 Type 2 diabetes mellitus without 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s (principal); E53.8 Deficiency of other specified B group vitamins; D64.9 Anemia, unspecified; E03.9 Hypothyroidism, unspecified; E78.00 Pure hypercholesterolemia, unspecified; E55.9 Vitamin D deficiency, unspecified
CPT/HCPCS: 36415; 80053; 80061; 81001; 81003; 82043; 82306; 82570; 82607; 82746; 83036; 84439; 84443; 85025

== ENCOUNTER 2025-07-12 13:10 | Outpatient (REF) | payer OTHER, SELFPAY ==
--- NOTE | ~2025-07-12 | XR_ITS ---
EXAMINATION: XR FOOT, MAINOR 3V CLINICAL INFORMATION: M20.20 - Hallux rigidus, unspecified foot COMPARISON: None available. TECHNIQUE: AP, lateral, and oblique views of each foot. FINDINGS: RIGHT FOOT: No fracture, dislocation, or suspicious bone lesion. There is mild hallux valgus with mild bunion formation involving the medial eminence of the first metatarsal head. Mild osteoarthritis in the first MTP joint. Joint spaces otherwise preserved. Mild flattening of the normal plantar arch. There is a moderate-sized plantar calcaneal spur. There is a small dorsal calcaneal spur. Soft tissues demonstrate vascular calcifications but are otherwise normal. LEFT FOOT: No fracture, dislocation, or suspicious bone lesion. There is mild hallux valgus with mild bunion formation involving the medial eminence of the first metatarsal head. Mild osteoarthritis in the first MTP joint. Joint spaces otherwise preserved. Mild flattening of the normal plantar arch. There is a moderate-sized plantar calcaneal spur. There is a small dorsal calcaneal spur. Soft tissues demonstrate vascular calcifications but are otherwise normal. XR/XR Foot Mainor 3V IMPRESSION: 1. No acute bony or soft tissue findings in either foot. 2. Bilateral mild hallux valgus and bunion formation. 3. Mild flattening of the normal plantar arch left greater than right. 4. Moderate-sized plantar calcaneal spurs. Electronically signed by: Boyd Saenz MD 07/12/2025 03:31 PM EDT
== END 2025-07-12 13:11 | disposition home or self-care (01) ==
LOC: HO.XRAY 13:10
PROVIDERS: PCP Internal Medicine; Visit Provider Student in an Organized Health Care Education/Training Program
DX: E11.42 Type 2 diabetes mellitus with diabetic polyneuropathy (principal); M20.21 Hallux rigidus, right foot; M20.22 Hallux rigidus, left foot; B35.1 Tinea unguium; L85.3 Xerosis cutis; Z79.4 Long term (current) use of insulin
CPT/HCPCS: 73630; 99202

== ENCOUNTER 2025-07-12 13:10 | Outpatient (AMB) | payer OTHER, SELFPAY ==
[2025-07-12 13:27] VITALS: BMI 27.0
--- NOTE | 2025-07-12 13:27 | MHC.OFFVIS ---
Vital Signs 07/12/25 13:27 Height 5 ft 1 in Weight 143 lb BMI 27.0 Intake Visit Reasons: Type II Diabetes Intake Note: Debo is a 70 year old female who presents today as new patient for a diabetic foot exam. She states her sugars are currently at 219 and her last reported A1C was 6.3 on 06/09/25. Patient has been experiencing numbness, tingling, and a burning sensation in her feet However She has not experienced any nausea,vomiting, dizziness or headaches recently. Patient reports frequent low back pains and she states she is currently taking gabapentin as well. Allergies francisco Allergy (Severe, Verified 07/12/25 13:28) Rash Penicillins Allergy (Intermediate, Verified 07/12/25 13:28) RASH/HIVES HPI HPI Type II Diabetes: Details: The patient is a 70-year-old female past medical history includes diabetes mellitus type 2, lumbar radiculopathy, vitamin-B deficiency, GERD, seen today for diabetic foot evaluation and bilateral feet pain. The patient reports significant left knee pain and tingling/burning sensations in the ball of her feet. She describes the sensations as pins and needles, however they are typically exacerbated by walking. The tingling is primarily located on the bottom of the feet and she states she was told it is associated with neuropathy, for which she is currently taking gabapentin twice daily. Social History: - The patient uses a cane on the right side due to knee pain. - The patient plans to travel to [place] for a two-week vacation towards the end of July and early August, which will involve some walking. [facility] Medical History (Updated 07/12/25 @ 16:54 by Dimas Sanford DPM) Insulin pump in place Elevated LFTs Type 2 diabetes mellitus with diabetic polyneuropathy Abdominal pain Simple ovarian cyst Diabetes type 2, uncontrolled Overactive bladder Diabetes mellitus Urge incontinence of urine Uninhibited neurogenic bladder Delayed gastric emptying Type 2 diabetes mellitus 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, with [facility] current use of insulin pump Type 2 diabetes mellitus 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 Nausea and vomiting Sinusitis History of stroke Colon cancer screening Right ankle swelling Cellulitis of right lower leg Swelling of right lower extremity Left leg pain Left ankle sprain Ankle fracture, left Chronic pain syndrome Dementia 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 Diabetic neuropathy UTI (urinary tract infection) Insomnia Glaucoma Migraine Acquired hypothyroidism Hearing impairment CVA (cerebral vascular accident) Blind left eye Localized swelling, mass and lump, neck Urinary tract infection with pyuria Elevated liver enzymes Depression Anxiety Urinary incontinence in female Dementia Osteoarthritis Lumbar spondylosis Pure hypercholesterolemia Pain of right thumb Allergic rhinitis Hypertension Obesity (BMI 30-39.9) Vitamin D deficiency Dyslipidemia Diabetic polyneuropathy associated with type 2 diabetes mellitus Diabetic 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 type 2 diabetes mellitus 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 Right sided abdominal pain Dizziness and giddiness Orthostatic hypotension Charmaine albicans infection Surgical History History of carpal tunnel release History of pubovaginal sling Hx of eye surgery Hx of cystoscopy Hx of hysterectomy Hx of cholecystectomy History of esophagogastroduodenoscopy (EGD) Hx of colonoscopy Family History Father Diabetes Mother Heart problem Brother Diabetes Social History Housing: Apartment Are you a primary administrator health care facility to a significant other at home: No Do you presently have visiting nurse or other home services: No Alcohol intake: never Patient Tobacco Use Status: Never used Tobacco e-Cigarette/Vaping Use: Never Used Second Hand Smoke Exposure: No service: No Current occupational status: disabled Gender identity: Female Cognitive needs: Yes (Cane, walker) Hearing needs: No Vision needs: Yes (Glasses) Female Reproductive History Menstrual Age of Menarche: 10 Review of Systems Const All systems reviewed & are unremarkable except as noted in HPI and below Physical Exam Vital Signs: BMI result Body Mass Index 27.0 Extrem Other: *Bilateral Lower Extremity Focused Diabetic Foot Exam Vascular: DP/PT 2/4, CFT<3s to digits, TG warm to cool, no pedal edema, pedal hair absent Derm: Skin: Dry skin bilateral feet. No annual scaling. Interdigital spaces: Clear, no maceration or fungal infection. Nails: Discolored thickened toenails with subungual debris x3 right foot, x3 left foot. Neuro: Protective sensation grossly intact to bilateral lower extremities. Msk: Deformities: Hallux range of motion restricted to 30 degrees dorsiflexion bilaterally. Palpable dorsal bony prominence 1st Metatarsal-phalangeal joint bilaterally. Muscle strength: 5/5 in all muscle groups. Gait: Slow daisy, antalgic with cane use right side. Footwear Assessment: Shoes inspected; appropriate fit, no excessive wear, or foreign objects noted. Results Reviewed Results Reviewed: Laboratory Tests 07/11/25 12:12 Hemoglobin A1c % 6.4 H Assessment & Plan Assessment & Plan (1) Type 2 diabetes mellitus with diabetic polyneuropathy: Comment: insulin pump Code(s): E11.42 - Type 2 diabetes mellitus with diabetic polyneuropathy Category: Medical Qualifiers: Diabetes mellitus manager terminal insulin use: with [facility] use Qualified Code(s): E11.42 - Type 2 diabetes mellitus with diabetic polyneuropathy; Z79.4 - 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 Plan: Risk Stratification: No current ulceration, infection, or pre-ulcerative lesion. No loss of protective sensation or peripheral arterial disease. No plans for further testing/referrals for non-invasive vascular studies. Patient is at low risk for diabetic foot 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s at this time. Recommendations: Continue routine foot care and daily self-inspection. Recommend moisturizing daily. Recommend supportive proper fitting shoe-wear. The patient may require diabetic shoes in the future. Reinforced diabetic foot education and risks from peripheral neuropathy. She was also prescribed capsaicin ointment for her peripheral neuropathy. (2) Hallux rigidus: Code(s): M20.20 - Hallux rigidus, unspecified foot Category: Medical Qualifiers: Laterality: bilateral Qualified Code(s): M20.21 - Hallux rigidus, right foot; M20.22 - Hallux rigidus, left foot Plan: Discussed the etiology of patient's bilateral 1st Metatarsal-phalangeal joint pain with patient and her daughter. Referred for x-ray bilateral feet. Recommended [id number]-[id number] orthotics with Blackman's extension. Follow up in 3 weeks. (3) Xerosis cutis: Code(s): L85.3 - Xerosis cutis Category: Medical Plan: Rx Amlactin ointment (4) Tinea unguium: Code(s): B35.1 - Tinea unguium Category: Medical Plan: Rx ciclopirox Orders: Orders XR Foot Mainor 3V Today M20.20 - Hallux rigidus, unspecified foot Medications: New capsaicin 0.1% (Arthritis Pain Relief (capsaicin)) do not wash area for at least 30 min after application 1 appl topical TID 42.5 grams 3RF peripheral neuropathy E11.42 - Type 2 diabetes mellitus with diabetic polyneuropathy, Z79.4 - intermediate (current) use of insulin ammonium lactate 12% (AmLactin) 1 appl topical DAILY 225 grams 3RF xerosis skin L85.3 - Xerosis cutis ciclopirox 8% Applied to fungal toenails daily. Remove buildup at the end of the week. 1 appl topical BEDTIME 6.6 mL 3RF onychomycosis 4 months B35.1 - Tinea unguium Coding Level of Care Code New Pt Level 4 (13151) Diagnoses Type 2 diabetes mellitus with diabetic polyneuropathy, with long-term current use of insulin E11.42; Z79.4 Diabetes mellitus [facility] insulin use: with [facility] use Hallux rigidus of both feet M20.21; M20.22 Laterality: bilateral Xerosis cutis L85.3 Tinea unguium B35.1 Time Spent (min) 35
--- OUTSIDE RECORDS SUMMARY | 2025-07-12 14:25 | XMS_ITS ---
Author Name Agatha Mayorga NP Address [address] [place] [address] Phone [phone] [facility] Care Team Providers Care Drapery Examiner Name Role Phone Agatha Mayorga Unavailable [phone] VANITA MOLINA Unavailable [phone] TRIP GOETZ Unavailable [phone] MYAH ELDER Unavailable [phone] Eiljah Hunter Unavailable [phone] DEVIN ESTRELLA Unavailable [phone] XOCHITL TAVAREZ Unavailable [phone] January Unavailable [phone] Neil Velazquez Unavailable [phone] Reason for Referral Not Available Allergies, adverse [...] AT BEDTIME 2022 No Data Available Nystatin [id number] UNIT/GM Crm APPLY TO AFF ECTED AREA [...] 2023-02-24 2024-01-30 BD UF MICRO PEN NEEDLE [id number] DIRECTED INJECTS 4 TIMES A DAY 2023-03-19 [...] StableRosuvastat in, Lantus, Humalog Has omnipod insulin [id number] 7.7% Monitor BG routinely, low carb diet, [...] pain present (1126F) [facility] [place] Pain Assessment - NO pain present (1126F) [facility] [place] Pain Assessment - NO pain present (1126F) [facility] [place] Pain Assessment - NO pain present (1126F) [facility] [place] Pain Assessment - NO pain present (1126F) [facility] [place] Pain Assessment - NO pain present (1126F) [facility] [place] Pain Assessment - NO pain present (1126F) [facility] [place] Pain Assessment - NO pain present (1126F) [facility] Pain Assessment - NO pain present (1126F) [facility] [place]2022 Presence of insulin pump (external) (internal)Migraine, unspecified, not intractable, without status migrainosusType 2 diabetes mellitus with other specified 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Hyperlipidemia, unspecifiedUnspecified dementia without behavioral disturbanceOveractive bladderObesity, unspecifiedMajor depressive disorder, single episode, unspecifiedAnxiety disorder, unspecified Estab. patient 30-39min; chronic exacerbation, 2 stable chronic or 1 acute illness add add modifier 95 for video, (do not use for phone, instead use 13164-56) [facility] [place] 05[place]22/2023 Migraine, unspecified, not intractable, without status migrainosusType 2 diabetes mellitus with other specified 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Hyperlipidemia, unspecifiedUnspecified dementia without behavioral disturbanceMajor depressive disorder, recurrent, moderateOveractive bladderObesity, unspecifiedAnxiety disorder, unspecified Estab. patient 30-39min; chronic exacerbation, 2 stable chronic or 1 acute illness add add modifier 95 for video, (do not use for phone, instead use 29018-27) [facility] [place]20[place] Estab. patient 30-39min; chronic exacerbation, 2 stable chronic or 1 acute illness add add modifier 95 for video, (do not use for phone, instead use 71458-28) [facility] [place] 05[place]20[place] Estab. patient 30-39min; chronic exacerbation, 2 stable chronic or 1 acute illness add add modifier 95 for video, (do not use for phone, instead use 95006-83) [facility] [place] 05[place]2023 Estab. patient 30-39min; chronic exacerbation, 2 stable chronic or 1 acute illness add add modifier 95 for video, (do not use for phone, instead use 67423-52) [facility] [place] 05[place]20[place] Estab. patient 30-39min; chronic exacerbation, 2 stable chronic or 1 acute illness add add modifier 95 for video, (do not use for phone, instead use 74396-11) [facility] [place] 05[place]20[place] Estab. patient 30-39min; chronic exacerbation, 2 stable chronic or 1 acute illness add add modifier 95 for video, (do not use for phone, instead use 33021-20) [facility] [place] 05[place]22/2023 Estab. patient 30-39min; chronic exacerbation, 2 stable chronic or 1 acute illness add add modifier 95 for video, (do not use for phone, instead use 82221-66) [facility] ([place] 05/22/20[place] Estab. patient 30-39min; chronic exacerbation, 2 stable chronic or 1 acute illness add add modifier 95 for video, (do not use for phone, instead use 43007-30) [facility] [place] 05/22/2023 Estab. patient 30-39min; chronic exacerbation, 2 stable chronic or 1 acute illness add add modifier 95 for video, (do not use for phone, instead use 48995-92) [facility] [place] 05[place]22/2023 Estab. patient 30-39min; chronic exacerbation, 2 stable chronic or 1 acute illness add add modifier 95 for video, (do not use for phone, instead use 44864-99) [facility] [place] 01/30/2024 Migraine, unspecified, not intractable, without status [...] (do not use for phone, instead use 41395-17) [facility] [place] 01/30/20[place] Estab. patient 30-39min; chronic exacerbation, 2 stable chronic or 1 acute illness add add modifier 95 for video, (do not use for phone, instead use 27822-75) [facility] [place] 01[place]30/20[place] Estab. patient 30-39min; chronic exacerbation, 2 stable chronic or 1 acute illness add add modifier 95 for video, (do not use for phone, instead use 28665-40) [facility] [place] 01[place]30/20[place] Estab. patient 30-39min; chronic exacerbation, 2 stable chronic or 1 acute illness add add modifier 95 for video, (do not use for phone, instead use 84799-28) [facility] [place] 01[place]30/20[place] Estab. patient 30-39min; chronic exacerbation, 2 stable chronic or 1 acute illness add add modifier 95 for video, (do not use for phone, instead use 99314-79) [facility] [place] 01/30/20[place] Estab. patient 30-39min; chronic exacerbation, 2 stable chronic or 1 acute illness add add modifier 95 for video, (do not use for phone, instead use 42738-43) [facility] [place] 01/30/20[place] Estab. patient 30-39min; chronic exacerbation, 2 stable chronic or 1 acute illness add add modifier 95 for video, (do not use for phone, instead use 85065-03) [facility] [place] 01/30/20[place] Estab. patient 30-39min; chronic exacerbation, 2 stable chronic or 1 acute illness add add modifier 95 for video, (do not use for phone, instead use 93590-32) [facility] [place] 01/30/20[place] Estab. patient 30-39min; chronic exacerbation, 2 stable chronic or 1 acute illness add add modifier 95 for video, (do not use for phone, instead use 90857-71) [facility] ([place] 01/30/20[place] Estab. patient 20-29min; 1 stable chronic or 2 minor; add add modifier 95 for video, modifier 93 for phone [facility] [place] 12/13/2024 Migraine, unspecified, not intractable, without status [...] for video, modifier 93 for phone [facility] [place] 12/13/2024 Estab. patient 20-29min; 1 stable chronic or 2 minor; add add modifier 95 for video, modifier 93 for phone [facility] [place]13[place]20[place] Estab. patient 20-29min; 1 stable chronic or 2 minor; add add modifier 95 for video, modifier 93 for phone [facility] 12/13/2024 Estab. patient 20-29min; 1 stable chronic or 2 minor; add add modifier 95 for video, modifier 93 for phone [facility] 12/13/2024 Estab. patient 20-29min; 1 stable chronic or 2 minor; add add modifier 95 for video, modifier 93 for phone [facility] 12/13/2024 Estab. patient 20-29min; 1 stable chronic or 2 minor; add add modifier 95 for video, modifier 93 for phone [facility] [place] 12/13/2024 Vital Signs Date of Collection [...] tive Time Current Smoking Status Never smoker 2025-06-15 0 Sex Female Gender identity Woman History [...] (do not use for phone, instead use 38548-44) [id number] 2022-08-13 No Data Available No Data Availa ble Estab. patient 30-39min; chronic exacerbation, 2 stable chronic or 1 acute illness add add modifier 95 for video, (do not use for phone, instead use 80736-80) [id number] 2023-05-22 No Data Available No Data Availa [...] (do not use for phone, instead use 03106-42) [id number] 2024-01-30 No Data Available No Data Availa [...] 95 for video, modifier 93 for phone [id number] 2024-12-13 No Data Available No Data Availa [...] mellitus ty pe 2, 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, on 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 insulin pumpMigrainesHyperlipidemia associated with type 2 diabetes [...] education needs that may arise.Has omnipod insulin [id number] 7.7% last monthBlood sugar varies, since adding [...] arise.Emgality monthlyNeurology - Dr. Magallanes omnipod insulin [id number] 7.7% last monthBlood sugar varies, since adding [...] Dr. JohnsonRosuvastatin, Lantus, Humalog Has omnipod insulin [id number] 7.7% Monitor BG routinely, low carb diet, [...] on 12/09/24.StableRosuvastatin, Lantus, Humalog Has omnipod insulin [id number] 7.7% Monitor BG routinely, low carb diet, [...]
--- OUTSIDE RECORDS SUMMARY | 2025-07-12 14:26 | XMS_ITS | Clinical Summary ---
Author Organization [facility] Address [address] [place] [phone] Phone Care Team Providers Care Mirror Specialist Name Role Phone Elijah Hunter MD Primary Care Provider [phone] Social History Tobacco Use Types Packs/Day Years [...] topic Medical Devices Not on file Insurance [facility] [place] [id number] [facility] [place] [place] [id number] [facility] [place] [id number] [facility] [place] [id number] [facility] Care Teams Mirror Specialist Relationship Specialty Start Date End Date Elijah Hunter MD [address] [place] [address] Dr [facility] [place] [address] PCP - General Internal Medicine 08/02/19 Additional Source Comments The information contained in this document represents components of the legal health record. It is not the complete legal health record.[facility]
== END 2025-07-12 13:53 | disposition home or self-care (01) ==
LOC: HO.HPODS 13:11
PROVIDERS: PCP Internal Medicine; Visit Provider Student in an Organized Health Care Education/Training Program
DX: E11.42 Type 2 diabetes mellitus with diabetic polyneuropathy (principal); Z79.4 Long term (current) use of insulin; M20.21 Hallux rigidus, right foot; M20.22 Hallux rigidus, left foot; L85.3 Xerosis cutis; B35.1 Tinea unguium
CPT/HCPCS: 99204

== ENCOUNTER → 2025-07-12 14:42 | Outpatient (BNV) | payer OTHER, SELFPAY | PROVIDERS: PCP Internal Medicine; Visit Provider Radiology Diagnostic Radiology | DX: M20.11 Hallux valgus (acquired), right foot (principal); M20.12 Hallux valgus (acquired), left foot | CPT/HCPCS: 73630 ==

== ENCOUNTER 2025-07-19 06:41 | Day surgery (SDC) | payer OTHER, SELFPAY ==
--- OUTSIDE RECORDS SUMMARY | 2025-06-24 16:40 | XMS_ITS ---
Author Name [place] PIPE INSULATOR,FUR TANNER,FN P,BACK END ARCHITECT, Chasidy Address [address] [place] [address] Phone [phone] [facility] Care Team Providers Care Biology Tutor Name Role Phone Chasidy Worthington Unavailable [phone] VANITA MOLINA Unavailable [phone] TRIP GOETZ Unavailable [phone] MYAH ELDER Unavailable [phone] Elijah Hunter Unavailable [phone] DEVIN ESTRELLA Unavailable [phone] XOCHITL TAVAREZ Unavailable [phone] LeijaJanuary Unavailable [phone] Neil Velazquez Unavailable [phone] Reason for Referral Not Available Allergies, adverse [...] AT BEDTIME 2022 No Data Available Nystatin 922116 UNIT/GM Crm APPLY TO AFF ECTED AREA [...] 2023-02-24 2024-01-30 BD UF MICRO PEN NEEDLE [id number] DIRECTED INJECTS 4 TIMES A DAY 2023-03-19 [...] StableRosuvastat in, Lantus, Humalog Has omnipod insulin bccpR2W 7.7% Monitor BG routinely, low carb diet, [...] (do not use for phone, instead use 52435-82) [facility] Migraine, unspecified, not intractable, without status migrainosusType 2 diabetes mellitus with other specified 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Hyperlipidemia, unspecifiedUnspecified dementia without behavioral disturbanceMajor depressive disorder, recurrent, moderateOveractive bladderObesity, unspecifiedAnxiety disorder, unspecified Estab. patient 30-39min; chronic exacerbation, 2 stable chronic or 1 acute illness add add modifier 95 for video, (do not use for phone, instead use 21271-18) [facility] Estab. patient 30-39min; chronic exacerbation, 2 stable chronic or 1 acute illness add add modifier 95 for video, (do not use for phone, instead use 78210-74) [facility] Estab. patient 30-39min; chronic exacerbation, 2 stable chronic or 1 acute illness add add modifier 95 for video, (do not use for phone, instead use 95203-43) [facility] Estab. patient 30-39min; chronic exacerbation, 2 stable chronic or 1 acute illness add add modifier 95 for video, (do not use for phone, instead use 08629-96) [facility] Estab. patient 30-39min; chronic exacerbation, 2 stable chronic or 1 acute illness add add modifier 95 for video, (do not use for phone, instead use 15073-36) [facility] Estab. patient 30-39min; chronic exacerbation, 2 stable chronic or 1 acute illness add add modifier 95 for video, (do not use for phone, instead use 54083-61) [facility] Estab. patient 30-39min; chronic exacerbation, 2 stable chronic or 1 acute illness add add modifier 95 for video, (do not use for phone, instead use 46428-96) [facility] Estab. patient 30-39min; chronic exacerbation, 2 stable chronic or 1 acute illness add add modifier 95 for video, (do not use for phone, instead use 91225-13) [facility] Estab. patient 30-39min; chronic exacerbation, 2 stable chronic or 1 acute illness add add modifier 95 for video, (do not use for phone, instead use 99411-08) [facility] Estab. patient 30-39min; chronic exacerbation, 2 stable chronic or 1 acute illness add add modifier 95 for video, (do not use for phone, instead use 12948-97) [facility] 01[place]2024 Migraine, unspecified, not intractable, [...] (do not use for phone, instead use 51247-16) [facility] 01[place] Estab. patient 30-39min; chronic exacerbation, 2 stable chronic or 1 acute illness add add modifier 95 for video, (do not use for phone, instead use 23432-74) [facility]/20[place] Estab. patient 30-39min; chronic exacerbation, 2 stable chronic or 1 acute illness add add modifier 95 for video, (do not use for phone, instead use 68869-16) [facility]20[place] Estab. patient 30-39min; chronic exacerbation, 2 stable chronic or 1 acute illness add add modifier 95 for video, (do not use for phone, instead use 41513-03) [facility] [place] Estab. patient 30-39min; chronic exacerbation, 2 stable chronic or 1 acute illness add add modifier 95 for video, (do not use for phone, instead use 14663-72) [facility] [place] Estab. patient 30-39min; chronic exacerbation, 2 stable chronic or 1 acute illness add add modifier 95 for video, (do not use for phone, instead use 59134-36) [facility] [place] Estab. patient 30-39min; chronic exacerbation, 2 stable chronic or 1 acute illness add add modifier 95 for video, (do not use for phone, instead use 82655-63) [facility] [place] Estab. patient 30-39min; chronic exacerbation, 2 stable chronic or 1 acute illness add add modifier 95 for video, (do not use for phone, instead use 10040-57) [facility] [place] Estab. patient 30-39min; chronic exacerbation, 2 stable chronic or 1 acute illness add add modifier 95 for video, (do not use for phone, instead use 57778-61) [facility] [place] Estab. patient 20-29min; 1 stable chronic or 2 minor; add add modifier 95 for video, modifier 93 for phone [facility] [place] 12/13/2024 Migraine, unspecified, not intractable, without status [...] 93 for phone [facility] [place] 12/13/[place] Estab. patient 20-29min; 1 stable chronic or 2 minor; add add modifier 95 for video, modifier 93 for phone [facility] [place] 12/13/[place] Estab. patient 20-29min; 1 stable chronic or 2 minor; add add modifier 95 for video, modifier 93 for phone [facility] [place] 12/13/2024 Estab. patient 20-29min; 1 stable chronic or 2 minor; add add modifier 95 for video, modifier 93 for phone [facility] [place] 12/13/2024 Estab. patient 20-29min; 1 stable chronic or 2 minor; add add modifier 95 for video, modifier 93 for phone [facility] [place] 12/13/2024 Estab. patient 20-29min; 1 stable chronic or 2 minor; add add modifier 95 for video, modifier 93 for phone [facility] [place] 12/13/2024 Vital Signs Date of Collection Vitals [...] tive Time Current Smoking Status Never smoker 2025-06-13 2 Sex Female Gender identity Woman History [...] (do not use for phone, instead use 19601-75) 80212 2022-08-13 No Data Available No Data Availa ble Estab. patient 30-39min; chronic exacerbation, 2 stable chronic or 1 acute illness add add modifier 95 for video, (do not use for phone, instead use 32046-73) 28611 2023-05-22 No Data Available No Data Availa [...] (do not use for phone, instead use 89373-30) 97415 2024-01-30 No Data Available No Data Availa [...] 95 for video, modifier 93 for phone [id number] 2024-12-13 No Data Available No Data Availa [...] mellitus ty pe 2, 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, on filler leaf cutter long insulin pumpMigrainesHyperlipidemia associated with type 2 diabetes [...] education needs that may arise.Has omnipod insulin wxwwS4X 7.7% last monthBlood sugar varies, since adding [...] arise.Emgality monthlyNeurology - Dr. Magallanes omnipod insulin rysrH8P 7.7% last monthBlood sugar varies, since adding [...] Dr. JohnsonRosuvastatin, Lantus, Humalog Has omnipod insulin fsrwP3H 7.7% Monitor BG routinely, low carb diet, [...] on 12/09/24.StableRosuvastatin, Lantus, Humalog Has omnipod insulin tmvkS2H 7.7% Monitor BG routinely, low carb diet, [...] Social history. 2024-12-13 <add details of Adva mne Care Planning conversation using .Full Code 2024-12-13 Most recent hospital stay(s) or ER visit(s) and precipitating factors: Denies 2024-12-13 Open HEDIS Josie san: Reviewed
--- OUTSIDE RECORDS SUMMARY | 2025-06-24 16:40 | XMS_ITS | Clinical Summary ---
Author Organization [facility] Address [address] [facility] [address] [place] [address] Phone Care Team Providers Care Mechanical Ordnance Assembler Name Role Phone Elijah Hunter MD Primary Care Provider [phone] Social History Tobacco Use Types Packs/Day Years [...] topic Medical Devices Not on file Insurance [facility] DUAL MEDICARE REPLACEMENT [facility] DUAL MEDICARE REPLACEMENT [place] [id number] [facility] DUAL MEDICARE REPLACEMENT [place] [id number] [facility] DUAL MEDICARE REPLACEMENT [facility] DUAL MEDICARE REPLACEMENT [place] [id number] [facility] DUAL MEDICARE REPLACEMENT [place] [id number] [facility] DUAL MEDICARE REPLACEMENT [facility] DUAL MEDICARE REPLACEMENT [facility] DUAL MEDICARE REPLACEMENT Care Teams Mechanical Ordnance Assembler Relationship Specialty Start Date End Date Elijah Hunter MD [address] [place] [address] Dr [place] [address] PCP - General Internal Medicine 08/02/19 Additional Source Comments The information contained in this document represents components of the legal health record. It is not the complete legal health record.[facility]
[2025-07-15 09:31] VITALS: BMI 27.6
[2025-07-19 07:35] VITALS: BP 119/62; PULSE 82; RESP 12; TEMP 36.3; O2SAT 97; BMI 27.5
[2025-07-19] MEDS: Lactated Ringers 1,000 ML 100 ML IVCONT (07:53)
--- NOTE | 2025-07-19 08:13 | HO.ANESPROP2 ---
Documented by User: Marisa Cobian NP 07/15/25 11:52 HPI - Anesthesia Eval Consult details Narrative: 70 yr old female for Cystoscopy Bladder Botox Injection Frontotemporal dementia Type 2 DM: A1C 6.3% 05/2025, on inuslin pump GERD: on PPI Anesthesia Pre-Procedure Meds Is the patient on any of the following meds?: GLP1/DPP4 PMFSH Active Problems Active Problems: All Active Problems Tinea unguium (Acute) Xerosis cutis (Acute) Hallux rigidus (Acute) Insulin pump in place (Acute) Osteopenia (Acute) UTI symptoms (Acute) Osteoporosis screening (Acute) Elevated LFTs (Acute) Type 2 diabetes mellitus with diabetic polyneuropathy (Acute) Custody issue (Acute) Abdominal pain (Acute) Bilateral knee pain (Acute) Type 2 diabetes mellitus 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, with life manager current use of insulin pump (Acute) Spastic neurogenic bladder (Acute) Tubular adenoma of colon (Acute) Gastroparesis (Acute) Goiter (Acute) Diffuse idiopathic skeletal hyperostosis of cervical spine (Acute) Aortic valve calcification (Acute) Chronic pain of left ankle (Acute) QT prolongation (Acute) Hemorrhoids (Acute) Rectocele (Acute) GERD (gastroesophageal reflux disease) (Acute) Chronic idiopathic constipation (Acute) Chronic pain syndrome (Acute) Dementia 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 (Acute) Diabetic neuropathy (Acute) Insomnia (Acute) Glaucoma (Acute) Migraine (Acute) Acquired hypothyroidism (Acute) Hearing impairment (Acute) Depression (Acute) Anxiety (Acute) Osteoarthritis (Acute) Lumbar spondylosis (Acute) Pure hypercholesterolemia (Acute) Allergic rhinitis (Acute) Hypertension (Acute) Obesity (BMI 30-39.9) (Acute) Vitamin D deficiency (Acute) Dyslipidemia (Acute) Diabetic 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 type 2 diabetes mellitus (Acute) half-way (current) use of insulin (Acute) Dizziness and giddiness (Acute) Orthostatic hypotension (Acute) Past Medical History Medical History Insulin pump in place Elevated LFTs Type 2 diabetes mellitus with diabetic polyneuropathy Abdominal pain Simple ovarian cyst Diabetes type 2, uncontrolled Overactive bladder Diabetes mellitus Urge incontinence of urine Uninhibited neurogenic bladder Delayed gastric emptying Type 2 diabetes mellitus 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, with life manager current use of insulin pump Type 2 diabetes mellitus 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 Nausea and vomiting Sinusitis History of stroke Colon cancer screening Right ankle swelling Cellulitis of right lower leg Swelling of right lower extremity Left leg pain Left ankle sprain Ankle fracture, left Chronic pain syndrome Dementia 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 Diabetic neuropathy UTI (urinary tract infection) Insomnia Glaucoma Migraine Acquired hypothyroidism Hearing impairment CVA (cerebral vascular accident) Blind left eye Localized swelling, mass and lump, neck Urinary tract infection with pyuria Elevated liver enzymes Depression Anxiety Urinary incontinence in female Dementia Osteoarthritis Lumbar spondylosis Pure hypercholesterolemia Pain of right thumb Allergic rhinitis Hypertension Obesity (BMI 30-39.9) Vitamin D deficiency Dyslipidemia Diabetic polyneuropathy associated with type 2 diabetes mellitus Diabetic 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 type 2 diabetes mellitus financial administrative assistant (current) use of insulin Right sided abdominal pain Dizziness and giddiness Orthostatic hypotension Charmaine albicans infection Family History Family History Father Diabetes Mother Heart problem Brother Diabetes Family history of problems with anesthesia: No Surgical History Surgical History History of carpal tunnel release History of pubovaginal sling Hx of eye surgery Hx of cystoscopy Hx of hysterectomy Hx of cholecystectomy History of esophagogastroduodenoscopy (EGD) Hx of colonoscopy History of Problems with Anesthesia: No Social History Social History Housing: Apartment Are you a primary day care attendant to a significant other at home: No Do you presently have visiting nurse or other home services: No Alcohol intake: never Patient Tobacco Use Status: Never used Tobacco e-Cigarette/Vaping Use: Never Used Second Hand Smoke Exposure: No Use of substances other than those prescribed or required for medical reasons: No Have you been hit, kicked, punched, or otherwise hurt by someone within the past year? If so, by whom?: No Advance Directives: No Advance Directives Information Provided: Yes Patient : No Poor oral hygiene: Yes service: No Current occupational status: disabled Gender identity: Female Cognitive needs: Yes (Cane, walker) Hearing needs: No Vision needs: Yes (Glasses) Meds Allergies Allergy/AdvReac Type Severity Reaction Status Date / Time francisco Allergy Severe Rash Verified 07/19/25 07:29 Penicillins Allergy Intermediate RASH/HIVES Verified 07/19/25 07:29 Home Medications ?Medication ?Instructions ?Recorded ?Confirmed ?Last Taken ?Type quetiapine 25 mg tablet 75 mg PO BEDTIME 09/27/20 06/16/25 Unknown History melatonin 3 mg tablet 6 mg PO BEDTIME PRN Insomnia 05/08/21 06/16/25 Unknown History mirtazapine 30 mg tablet 30 mg PO QPM 01/07/22 06/16/25 Unknown History clonazepam 0.5 mg tablet 1 mg PO BEDTIME 08/29/22 06/16/25 Unknown History dorzolamide 2 %-timolol 0.5 % (PF) 1 drp ophthalmic (eye) BID 08/18/23 06/16/25 Unknown History eye drops atogepant 30 mg tablet (Qulipta) 30 mg PO DAILY migraine 02/04/24 06/16/25 Unknown History latanoprostene bunod 0.024 % eye 1 drp ophthalmic (eye) BEDTIME 02/04/24 06/16/25 Unknown History drops (Vyzulta) mupirocin 2 % topical ointment 1 appl topical BID 02/04/24 06/16/25 Unknown History donepezil 5 mg tablet 5 mg PO DAILY 08/24/24 06/16/25 Unknown History Exam Height,Weight and Vital Signs: Height 5 ft 1 in Weight 66.224 kg Assessment and Plan Final Anesthetic Review Family History of Problems with Anesthesia: No History of Problems with Anesthesia: No Documented by User: Tiffanie Ruiz DO 07/19/25 08:16 HPI - Anesthesia Eval Consult details Narrative: 70 yr old female for Cystoscopy Bladder Botox Injection Frontotemporal dementia - patient reports that she signs all consents. Daughter and manager business planning at bedside. Type 2 DM: A1C 6.3% 05/2025, on insulin pump GERD: on PPI Anesthesia Pre-Procedure Meds Is the patient on any of the following meds?: GLP1/DPP4 PMFSH Past Medical History Medical History Insulin pump in place Elevated LFTs Type 2 diabetes mellitus with diabetic polyneuropathy Abdominal pain Simple ovarian cyst Diabetes type 2, uncontrolled Overactive bladder Diabetes mellitus Urge incontinence of urine Uninhibited neurogenic bladder Delayed gastric emptying Type 2 diabetes mellitus 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, with detention current use of insulin pump Type 2 diabetes mellitus 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 Nausea and vomiting Sinusitis History of stroke Colon cancer screening Right ankle swelling Cellulitis of right lower leg Swelling of right lower extremity Left leg pain Left ankle sprain Ankle fracture, left Chronic pain syndrome Dementia 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 Diabetic neuropathy UTI (urinary tract infection) Insomnia Glaucoma Migraine Acquired hypothyroidism Hearing impairment CVA (cerebral vascular accident) Blind left eye Localized swelling, mass and lump, neck Urinary tract infection with pyuria Elevated liver enzymes Depression Anxiety Urinary incontinence in female Dementia Osteoarthritis Lumbar spondylosis Pure hypercholesterolemia Pain of right thumb Allergic rhinitis Hypertension Obesity (BMI 30-39.9) Vitamin D deficiency Dyslipidemia Diabetic polyneuropathy associated with type 2 diabetes mellitus Diabetic 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 type 2 diabetes mellitus half-way (current) use of insulin Right sided abdominal pain Dizziness and giddiness Orthostatic hypotension Charmaine albicans infection Family History Family History Father Diabetes Mother Heart problem Brother Diabetes Family history of problems with anesthesia: No Surgical History Surgical History History of carpal tunnel release History of pubovaginal sling Hx of eye surgery Hx of cystoscopy Hx of hysterectomy Hx of cholecystectomy History of esophagogastroduodenoscopy (EGD) Hx of colonoscopy History of Problems with Anesthesia: No Social History Social History Housing: Apartment Are you a primary day care attendant to a significant other at home: No Do you presently have visiting nurse or other home services: No Alcohol intake: never Patient Tobacco Use Status: Never used Tobacco e-Cigarette/Vaping Use: Never Used Second Hand Smoke Exposure: No Use of substances other than those prescribed or required for medical reasons: No Have you been hit, kicked, punched, or otherwise hurt by someone within the past year? If so, by whom?: No Advance Directives: No Advance Directives Information Provided: Yes Patient : No Poor oral hygiene: Yes service: No Current occupational status: disabled Gender identity: Female Cognitive needs: Yes (Cane, walker) Hearing needs: No Vision needs: Yes (Glasses) Meds Allergies Allergy/AdvReac Type Severity Reaction Status Date / Time francisco Allergy Severe Rash Verified 07/19/25 07:29 Penicillins Allergy Intermediate RASH/HIVES Verified 07/19/25 07:29 Home Medications ?Medication ?Instructions ?Recorded ?Confirmed ?Last Taken ?Type quetiapine 25 mg tablet 75 mg PO BEDTIME 09/27/20 06/16/25 Unknown History melatonin 3 mg tablet 6 mg PO BEDTIME PRN Insomnia 05/08/21 06/16/25 Unknown History mirtazapine 30 mg tablet 30 mg PO QPM 01/07/22 06/16/25 Unknown History clonazepam 0.5 mg tablet 1 mg PO BEDTIME 08/29/22 06/16/25 Unknown History dorzolamide 2 %-timolol 0.5 % (PF) 1 drp ophthalmic (eye) BID 08/18/23 06/16/25 Unknown History eye drops atogepant 30 mg tablet (Qulipta) 30 mg PO DAILY migraine 02/04/24 06/16/25 Unknown History latanoprostene bunod 0.024 % eye 1 drp ophthalmic (eye) BEDTIME 02/04/24 06/16/25 Unknown History drops (Vyzulta) mupirocin 2 % topical ointment 1 appl topical BID 02/04/24 06/16/25 Unknown History donepezil 5 mg tablet 5 mg PO DAILY 08/24/24 06/16/25 Unknown History Exam Exam Date and Time: 07/19/25 0800 Height,Weight and Vital Signs: Height 5 ft 1 in Weight 66.224 kg Vital Signs Temperature 97.4 F 07/19/25 07:35 Pulse Rate 82 07/19/25 07:35 Respiratory Rate 12 07/19/25 07:35 Blood Pressure 119/62 07/19/25 07:35 Pulse Oximetry 97 07/19/25 07:35 Oxygen Delivery Method Room Air 07/19/25 07:35 Temperature 97.4 F 07/19/25 07:35 Pulse Rate 82 07/19/25 07:35 Respiratory Rate 12 07/19/25 07:35 Blood Pressure 119/62 07/19/25 07:35 Pulse Oximetry 97 07/19/25 07:35 Oxygen Delivery Method Room Air 07/19/25 07:35 Airway Mallampati Class: II TM Dist: >3cm Neck ROM: Full Denture: Upper and Lower Heart: S1S2 Lungs: CTAB Assessment and Plan Assessment Anesthesia Assessment: Anesthesia Plan Discussed and Chart Reviewed Final Anesthetic Review Family History of Problems with Anesthesia: No History of Problems with Anesthesia: No NPO: Yes ASA Class: III Final Preanesthetic Review: No Changes in Pt Med Stat, Meds/Allgs Chart Reviewed, Consent Obtained/Reviewed (manager business planning at bedside for translation) and Anes Risks/Benef Reviewed Patient Risk: Intermediate Procedure Risk: Low Anesthetic Plan Anesthetic Plan: MAC: and Agree w/ Assess. and Plan Disposition: Standard PACU
--- NOTE | 2025-07-19 08:42 | MHC.SHP ---
Pre-Procedural Eval Section A - 24 Hr Update-Section A only Date of Service: 07/19/25 The patient is an INPATIENT: No The patient has been examined within 24 hours of the surgical procedure. The History & Physical has been completed within 30 days and I have reviewed it.: Yes Section B - Complete if H&P > 30 days Chief Complaint: Neuromuscular dysfunction of bladder, unspecified Allergies: Allergies Allergy/AdvReac Type Severity Reaction Status Date / Time francisco Allergy Severe Rash Verified 07/19/25 07:29 Penicillins Allergy Intermediate RASH/HIVES Verified 07/19/25 07:29 Plan Diagnosis/Plan: Unchanged I have reviewed the history and physical and performed a pertinent physical examination on my patient. No changes have occurred unless specified. Cysto. Bladder botox injection, 200 units. I have discussed risks to include hematuria, UTI, urinary retention, need to repeat procedure for sustained efficacy. Time Spent With Patient Time: Total time managing care of this patient today ____ minutes.
--- NOTE | 2025-07-19 08:43 | P.OP_ITS ---
Operative Note Operative Note Date of Service: 07/19/25 Narrative: PreOperative Diagnosis: Overactive bladder, spastic neurogenic bladder Post Operative Diagnosis: Overactive bladder, spastic neurogenic bladder Procedure: Cystoscopy with injection 200 units Botox intra detrusor muscle Surgeon: Dr Charlie Jones Anesthesia: General Procedure: After informed consent was verified the patient was brought to the operating room and placed in a supine position. Anesthesia was administered per protocol. Time out was done per protocol. Antibiotics confirmed. Cystoscopy performed with 22 Cambodian cystoscope. Bladder was emptied of urine. Urine sent for culture. Bladder was refilled. The bladder was visualized, the trigone was dependent due to cystocele. The right and left ureteral orifices were visualized. Using 200 units of Botox mixed in 10 cc of normal saline; transurethral injections were placed into the posterior wall of the bladder. 0.5cc placed at each injection site. Injections were placed in a grid 5 across and 4 longitudinally. Injections were placed from the inferior to superior position. The bladder was drained, the cystoscope was removed. 2% lidocaine was passed transurethrally. The patient tolerated the procedure and was brought out of anesthesia and taken to the recovery room in stable condition. Complications: none EBL: minimal (<5 mL) Drains: None
[2025-07-19 09:19] VITALS: BP 133/63; PULSE 73; RESP 16; TEMP 36.2; O2SAT 96
[2025-07-19 09:34] VITALS: BP 135/79; PULSE 79; RESP 16; O2SAT 96
[2025-07-19 09:49] VITALS: BP 114/75; PULSE 84; RESP 16; TEMP 36.1; O2SAT 97
== END 2025-07-19 10:48 | disposition home or self-care (01) ==
PROVIDERS: PCP Internal Medicine; Visit Provider Urology
PROC: 3E0K8GC Introduction of Other Therapeutic Substance into Genitourinary Tract, Via Natural or Artificial Opening Endoscopic (ICD-10-PCS; CPT 52287; principal; 2025-07-19 08:30)
DX: N31.8 Other neuromuscular dysfunction of bladder (principal); N31.0 Uninhibited neuropathic bladder, not elsewhere classified; N32.81 Overactive bladder; N39.41 Urge incontinence; E11.42 Type 2 diabetes mellitus with diabetic polyneuropathy; E11.319 Type 2 diabetes mellitus with unspecified diabetic retinopathy without macular edema; R74.8 Abnormal levels of other serum enzymes; K30 Functional dyspepsia; I10 Essential (primary) hypertension; E78.00 Pure hypercholesterolemia, unspecified; R10.9 Unspecified abdominal pain; G89.4 Chronic pain syndrome; F03.918 Unspecified dementia, unspecified severity, with other behavioral disturbance; Z86.73 Personal history of transient ischemic attack (TIA), and cerebral infarction without residual deficits; Z79.899 Other long term (current) drug therapy; Z79.82 Long term (current) use of aspirin; Z79.4 Long term (current) use of insulin; Z79.85 Long-term (current) use of injectable non-insulin antidiabetic drugs; Z96.41 Presence of insulin pump (external) (internal); Z88.0 Allergy status to penicillin; Z98.890 Other specified postprocedural states
CPT/HCPCS: 52287; 87086; J0585; J0690; J2704; J3010

== ENCOUNTER → 2025-07-19 06:41 | Outpatient (BNV) | payer OTHER, SELFPAY | PROVIDERS: PCP Internal Medicine; Visit Provider Urology | DX: N32.81 Overactive bladder (principal) | CPT/HCPCS: 52287 ==

== ENCOUNTER 2025-07-20 11:02 | Outpatient (AMB) | payer OTHER, SELFPAY ==
--- NOTE | 2025-07-20 11:48 | MHC.AMDMED ---
Intake Intake Visit Reasons: 60 min Squeegee Finisher Required: Yes Squeegee Finisher Language: Nuclear Physicist Services: [employer]queegee Finisher Offered & Declined Squeegee Finisher Name: Mary Bazan's daughter Accompanied by: Self / Same As Patient Allergies francisco Allergy (Severe, Verified 07/19/25 07:29) Rash Penicillins Allergy (Intermediate, Verified 07/19/25 07:29) RASH/HIVES HPI Comprehensive Diabetes Asmnt Most Recent Diabetes Results: Hemoglobin A1c 6.2 % 06/08/20 Microalb/Creat Ratio, (<30) 11.1 ug/mg cr 07/11/25 Cholesterol, (<200) 101 mg/dL 07/11/25 HDL Cholesterol, (>40) 45 mg/dL 07/11/25 Triglycerides, (<150) 98 mg/dL 07/11/25 Creatinine, (0.5-1.4) 0.64 mg/dL 07/11/25 BUN, (9-16) 23 mg/dL H 07/11/25 Sodium, (135-145) 142 mmol/L 07/11/25 Potassium, (3.3-5.1) 4.6 mmol/L 07/11/25 Chloride, (96-108) 108 mmol/L 07/11/25 Carbon Dioxide, (22-29) 29 mmol/L 07/11/25 Calcium, (8.4-10.2) 9.5 mg/dL 07/11/25 AST, (5-31) 34 U/L H 07/11/25 ALT, (0-31) 21 U/L 07/11/25 Total Protein, (6.5-8.0) 6.9 g/dL 07/11/25 Albumin, (3.5-5.0) 4.0 g/dL 07/11/25 [facility] Medical History Insulin pump in place Elevated LFTs Type 2 diabetes mellitus with diabetic polyneuropathy Abdominal pain Simple ovarian cyst Diabetes type 2, uncontrolled Overactive bladder Diabetes mellitus Urge incontinence of urine Uninhibited neurogenic bladder Delayed gastric emptying Type 2 diabetes mellitus 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, with 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 current use of insulin pump Type 2 diabetes mellitus 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 Nausea and vomiting Sinusitis History of stroke Colon cancer screening Right ankle swelling Cellulitis of right lower leg Swelling of right lower extremity Left leg pain Left ankle sprain Ankle fracture, left Chronic pain syndrome Dementia 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 Diabetic neuropathy UTI (urinary tract infection) Insomnia Glaucoma Migraine Acquired hypothyroidism Hearing impairment CVA (cerebral vascular accident) Blind left eye Localized swelling, mass and lump, neck Urinary tract infection with pyuria Elevated liver enzymes Depression Anxiety Urinary incontinence in female Dementia Osteoarthritis Lumbar spondylosis Pure hypercholesterolemia Pain of right thumb Allergic rhinitis Hypertension Obesity (BMI 30-39.9) Vitamin D deficiency Dyslipidemia Diabetic polyneuropathy associated with type 2 diabetes mellitus Diabetic 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 type 2 diabetes mellitus intermediate (current) use of insulin Right sided abdominal pain Dizziness and giddiness Orthostatic hypotension Charmaine albicans infection Surgical History History of carpal tunnel release History of pubovaginal sling Hx of eye surgery Hx of cystoscopy Hx of hysterectomy Hx of cholecystectomy History of esophagogastroduodenoscopy (EGD) Hx of colonoscopy Family History Father Diabetes Mother Heart problem Brother Diabetes Social History Housing: Apartment Are you a primary health care law specialist to a significant other at home: No Do you presently have visiting nurse or other home services: No Alcohol intake: never Patient Tobacco Use Status: Never used Tobacco e-Cigarette/Vaping Use: Never Used Second Hand Smoke Exposure: No service: No Current occupational status: disabled Gender identity: Female Cognitive needs: Yes (Cane, walker) Hearing needs: No Vision needs: Yes (Glasses) Female Reproductive History Menstrual Age of Menarche: 10 Assessment & Plan Assessment & Plan (1) Diabetic 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 type 2 diabetes mellitus: Code(s): E11.319 - Type 2 diabetes mellitus with unspecified diabetic retinopathy without macular edema Qualifiers: Diabetic retinopathy severity: with moderate nonproliferative retinopathy Diabetes mellitus macular edema: without macular edema Laterality: bilateral Qualified Code(s): E11.3393 - Type 2 diabetes mellitus with moderate nonproliferative diabetic retinopathy without macular edema, bilateral Plan: Patient presents for pump training for? Omnipod 5 with Dexcom G7 Patient's last A1c 6.4% on 07/07/25 The following topics were reviewed today: -Antoni 2+ verses Dexcom G7 ??? High Alert: 280 mg/dl ??? Low Alert: 80 mg/dl Patient continues to have connectivity issues between Dexcom sensor and Dexcom G7 baltazar on cell phone. Patient's daughter Mary tanner reports that she even has replaced her mother cell phone to try to alleviate connectivity issues. At today's visit patient's daughter Mary ahead patient's Dexcom G7 connected to Dexcom G7 wire rope fabrication supervisor. Explained to patient she can not connect Dexcom G7 sensor to wire rope fabrication supervisor and to Omnipod 5 wire rope fabrication supervisor at the same time. Mary explained that she was unable to get Dexcom G7 sensor to connect to smart phone baltazar, and was instructed by [employer] service to connect to Dexcom wire rope fabrication supervisor. Reconnected Dexcom G7 sensor to Dexcom G7 cell phone baltazar, and then reconnected Omnipod 5 wire rope fabrication supervisor to Dexcom G7 sensors. Discussed with patient and her daughter doing trial of Antoni 2+ sensor to see if this alleviates connectivity issue. Message sent to [employer] customer service sales associate to see if we can get some sample Omnipod 5 Antoni 2 +compatible pods. If we can get the pods we can do a trial with Antoni 2+ sensors to see if it alleviates connectivity issues Safety information: Importance of a backup plan, for manual injections, proper prescriptions and emergency supplies ketone strips, and rules for testing for ketones Settings verified by clinical trial educator, basal rate and manual mode adjusted to match basal rate in auto mode Basal rate(s) (units/hour) : ?12 AM to 12 PM 0.45 units / hr New ?12 AM to 12 PM 0.35 units / hr 12 PM to 12 AM? 0.5 units / hr New 12 PM to 12 AM? 0.4 units / hr Bolus setting Insulin Carbohydrate Ratio (s) 12 AM to 12 AM 1:9 6 PM to 12 AM 1:10 Correction Factor / Sensitivity Factor 12 AM? to 12 AM 1:40 Active Insulin Time 4 hours Target(s): ?12 AM? to 12 PM? 120 mg/dL Correct above 120 mg/dL. Coding Level of Care Code Est Pt Level 1 (10351) Diagnoses 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 edema associated with type 2 diabetes mellitus E11.3393 Diabetic retinopathy severity: with moderate nonproliferative retinopathy Diabetes mellitus macular edema: without macular edema Laterality: bilateral
== END 2025-07-20 11:54 | disposition home or self-care (01) ==
LOC: HO.ENCR 11:03
PROVIDERS: PCP Internal Medicine; Visit Provider Registered Nurse Diabetes Educator
DX: E11.3393 Type 2 diabetes mellitus with moderate nonproliferative diabetic retinopathy without macular edema, bilateral (principal)

== ENCOUNTER → 2025-07-20 11:02 | Outpatient (BNVA) | payer OTHER, SELFPAY | PROVIDERS: PCP Internal Medicine; Visit Provider Registered Nurse Diabetes Educator | DX: E11.3393 Type 2 diabetes mellitus with moderate nonproliferative diabetic retinopathy without macular edema, bilateral (principal); Z96.41 Presence of insulin pump (external) (internal) | CPT/HCPCS: 99211 ==

== ENCOUNTER → 2025-08-01 11:39 | Outpatient (BNVA) | payer OTHER, SELFPAY | PROVIDERS: PCP Internal Medicine; Visit Provider Urology | DX: R39.9 Unspecified symptoms and signs involving the genitourinary system (principal) | CPT/HCPCS: 51798 ==

== ENCOUNTER 2025-08-02 09:00 | Outpatient (AMB) | payer OTHER, SELFPAY ==
--- NOTE | 2025-08-02 09:08 | A.OFFVIS_ITS ---
Vital Signs 08/02/25 09:10 Height 5 ft 1 in Weight 145 lb BMI 27.4 Intake Visit Reasons: fu type 2 diabetes Intake Note: Debo is a 70 year old female who presents to the office today for a 3 week follow up for Hallux rigidus. At previous visit X-rays were ordered which pt has completed. Pt states she has purchased the insert, supportive shoe wear and has found no relief. She is still experiencing pain and it worsens throughout the day and gets to a point where she can not walk. Allergies francisco Allergy (Severe, Verified 08/02/25 09:10) Rash Penicillins Allergy (Intermediate, Verified 08/02/25 09:10) RASH/HIVES HPI HPI fu type 2 diabetes: Details: The patient is a 70-year-old female past medical history includes diabetes mellitus type 2, lumbar radiculopathy, vitamin-B deficiency, GERD, returns today along with her daughter for bilateral big toe joint pain. She purchased the blackman's extension orthotic, however does not provide her any relief. Also has a history of left knee pain and tingling/burning sensations in the ball of her feet. She describes the sensations as pins and needles, however they are typically exacerbated by walking. The tingling is primarily located on the bottom of the feet and she states she was told it is associated with neuropathy, for which she is currently taking gabapentin twice daily. Social History: - The patient uses a cane on the right side due to knee pain. - The patient plans to travel to [place] for a two-week vacation towards the end of July and early August, which will involve some walking. [facility] Medical History Insulin pump in place Elevated LFTs Type 2 diabetes mellitus with diabetic polyneuropathy Abdominal pain Simple ovarian cyst Diabetes type 2, uncontrolled Overactive bladder Diabetes mellitus Urge incontinence of urine Uninhibited neurogenic bladder Delayed gastric emptying Type 2 diabetes mellitus 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, with detention current use of insulin pump Type 2 diabetes mellitus 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 Nausea and vomiting Sinusitis History of stroke Colon cancer screening Right ankle swelling Cellulitis of right lower leg Swelling of right lower extremity Left leg pain Left ankle sprain Ankle fracture, left Chronic pain syndrome Dementia 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 Diabetic neuropathy UTI (urinary tract infection) Insomnia Glaucoma Migraine Acquired hypothyroidism Hearing impairment CVA (cerebral vascular accident) Blind left eye Localized swelling, mass and lump, neck Urinary tract infection with pyuria Elevated liver enzymes Depression Anxiety Urinary incontinence in female Dementia Osteoarthritis Lumbar spondylosis Pure hypercholesterolemia Pain of right thumb Allergic rhinitis Hypertension Obesity (BMI 30-39.9) Vitamin D deficiency Dyslipidemia Diabetic polyneuropathy associated with type 2 diabetes mellitus Diabetic 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 type 2 diabetes mellitus 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 insulin Right sided abdominal pain Dizziness and giddiness Orthostatic hypotension Charmaine albicans infection Surgical History History of carpal tunnel release History of pubovaginal sling Hx of eye surgery Hx of cystoscopy Hx of hysterectomy Hx of cholecystectomy History of esophagogastroduodenoscopy (EGD) Hx of colonoscopy Family History Father Diabetes Mother Heart problem Brother Diabetes Social History Housing: Apartment Are you a primary critical care physician to a significant other at home: No Do you presently have visiting nurse or other home services: No Alcohol intake: never Patient Tobacco Use Status: Never used Tobacco e-Cigarette/Vaping Use: Never Used Second Hand Smoke Exposure: No service: No Current occupational status: disabled Gender identity: Female Cognitive needs: Yes (Cane, walker) Hearing needs: No Vision needs: Yes (Glasses) Female Reproductive History Menstrual Age of Menarche: 10 Review of Systems Const All systems reviewed & are unremarkable except as noted in HPI and below Physical Exam Vital Signs: BMI result Body Mass Index 27.4 Extrem Other: *Bilateral Lower Extremity Focused Diabetic Foot Exam Vascular: DP/PT 2/4, CFT<3s to digits, right 1st MTP warm to touch with mild edema, left 1st MTP mild increased warmth. pedal hair absent Derm: Skin: Dry skin bilateral feet. No annual scaling. Interdigital spaces: Clear, no maceration or fungal infection. Nails: Discolored thickened toenails with subungual debris x3 right foot, x3 left foot. Neuro: Protective sensation grossly intact to bilateral lower extremities. Msk: Deformities: Hallux range of motion restricted to 30 degrees dorsiflexion bilaterally. Palpable dorsal bony prominence 1st Metatarsal-phalangeal joint bilaterally. Muscle strength: 5/5 in all muscle groups. Gait: Slow daisy, antalgic with cane use right side. Footwear Assessment: Shoes inspected; appropriate fit, no excessive wear, or foreign objects noted. Office Procedures AMB Debridement/Avulsion Podia Details: Procedure: Nail debridement Location: 10 nails, bilateral feet Anesthesia: N/A Description: The affected toenails were cleansed with an antiseptic solution. Using sterile nail nippers and a rotary micki, dystrophic and mycotic nail material was carefully debrided and reduced in thickness. Care was taken to avoid trauma to the surrounding skin and nail bed. All debris was removed as tolerated. The area was inspected for signs of infection or ulceration. Patient tolerated the procedure well without 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s. Tolerance: Patient tolerated procedure well, no immediate 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s. Class B findings as per physical exam findings above. The patient has a diagnosis of diabetes mellitus and presents with elongated, thickened toenails. Due to underlying diabetic neuropathy and mild vascular disease findings, the patient is at increased risk for 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s such as ulceration, infection, and difficulty with self-care. Debridement of elongated toenails is medically necessary to prevent development of pressure-related lesions, reduce risk of secondary infection, and maintain foot health in high- risk comorbidities. 26213-Zfpyvecfnvq of Nail 6+ Procedure code (CPT) selection complete AMB Joint Injection/Aspir Pod Joint Injection/Aspiration Podiatry: Procedure: Steroid injection Location: left 1st Metatarsal-phalangeal joint Medication: 1.5cc 0.5% bupivicaine, 1cc dexamethasone, 0.5cc kenalog? Description: Bilateral 1st metatarsophalangeal joint was prepped using Betadine. A steroid injection was administered using sterile technique. The site was dressed using a band-aid. Post-procedure Instructions: The patient was instructed to apply ice to the injection site. The patient was advised to call the office if there are signs or symptoms of worsening pain, infection, or steroid flare. LT - Injection of small joint LT Procedure code (CPT) selection complete AMB Joint Injection/Aspir Pod Joint Injection/Aspiration Podiatry: Procedure: Steroid injection Location: Right 1st Metatarsal-phalangeal joint Medication: 1.5cc 0.5% bupivicaine, 1cc dexamethasone, 0.5cc kenalog? Description: Bilateral 1st metatarsophalangeal joint was prepped using Betadine. A steroid injection was administered using sterile technique. The site was dressed using a band-aid. Post-procedure Instructions: The patient was instructed to apply ice to the injection site. The patient was advised to call the office if there are signs or symptoms of worsening pain, infection, or steroid flare. LT - Injection of small joint LT Procedure code (CPT) selection complete Office Meds triamcinolone acetonide 40 mg/mL suspension for injection Performing Provider: Dimas Sanford DPM Performing Location: [facility] Administered by: Dimas Sanford DPM on 08/02/25 14:27 Dose Route Admin Location Dispensed Lot Number Expiration Date [facility] Insurance Policy Issue Clerk 20 mg intra-articular 1 mL [address]-8 AMN EAL BIOSCIEN Total Dispensed Waste 1 mL 50 % dexamethasone sodium phosphate 4 mg/mL injection solution Performing Provider: Dimas Sanford DPM Performing Location: [facility] Administered by: Dimas Sanford DPM on 08/02/25 14:27 Dose Route Admin Location Dispensed Lot Number Expiration Date [facility] Insurance Policy Issue Clerk 4 mg intra-articular 1 mL 46104-764-05 MYL AN INSTITUTI Total Dispensed Waste 1 mL 0 % bupivacaine (PF) 0.5 % (5 mg/mL) injection solution Performing Provider: Dimas Sanford DPM Performing Location: [facility] Administered by: Dimas Sanford DPM on 08/02/25 14:27 Dose Route Admin Location Dispensed Lot Number Expiration Date [facility] Insurance Policy Issue Clerk 2 mL intra-articular 10 mL 7943-6638-17 HIK MA PHARMACEU Total Dispensed Waste 10 mL 80 % triamcinolone acetonide 40 mg/mL suspension for injection Performing Provider: Dimas Sanford DPM Performing Location: [facility] Administered by: Dimas Sanford DPM on 08/02/25 14:27 Dose Route Admin Location Dispensed Lot Number Expiration Date [facility] Insurance Policy Issue Clerk 20 mg intra-articular 1 mL [address]-5 AMN EAL [employer]OSCIEN Total Dispensed Waste 1 mL 50 % dexamethasone sodium phosphate 4 mg/mL injection solution Performing Provider: Dimas Sanford DPM Performing Location: [facility] Administered by: Dimas Sanford DPM on 08/02/25 14:27 Dose Route Admin Location Dispensed Lot Number Expiration Date [facility] Insurance Policy Issue Clerk 4 mg intra-articular 1 mL 68416-718-55 NIC SEGOVIAI Total Dispensed Waste 1 mL 0 % bupivacaine (PF) 0.5 % (5 mg/mL) injection solution Performing Provider: Dimas Sanford DPM Performing Location: [facility] Administered by: Dimas Sanford DPM on 08/02/25 14:27 Dose Route Admin Location Dispensed Lot Number Expiration Date [facility] Insurance Policy Issue Clerk 2 mL intra-articular 10 mL 5032-4503-17 HIK MA IRLANDA Total Dispensed Waste 10 mL 80 % Results Reviewed Results Reviewed: Podiatry X-ray Read: 07/12/2025 X-ray right foot 3 views (AP, MO, Lateral) reviewed which shows moderate 1st Metatarsal-phalangeal joint joint space narrowing with hallux abductovalgus angle of 28 degrees. Generalized osteopenia. I personally reviewed the imaging and my findings are listed above. Podiatry X-ray Read: 07/12/2025 X-ray left foot 3 views (AP, MO, Lateral) reviewed which shows moderate 1st Metatarsal-phalangeal joint joint space narrowing, hallux abductovalgus angle of 33 degrees. Generalized osteopenia. I personally reviewed the imaging and my findings are listed above. Assessment & Plan Assessment & Plan (1) Hallux rigidus: Code(s): M20.20 - Hallux rigidus, unspecified foot Category: Medical Qualifiers: Laterality: bilateral Qualified Code(s): M20.21 - Hallux rigidus, right foot; M20.22 - Hallux rigidus, left foot Plan: * Discussed the etiology of patient's bilateral 1st Metatarsal-phalangeal joint pain with patient and her daughter. * Reviewed bilateral feet x-rays with the patient and her daughter. * Administered 1st MTP cortisone injection bilateral feet, intra-articular. Dicussed she may have an interim period of hyperglycemia. * Discussed treatment options in the future which include 1st Metatarsal- phalangeal joint replacement versus fusion. Given her existing joint motion, age, and limited ambulation, we would likely recommend a joint arthroplasty. * Recommended exhausting conservative treatment measures 1st which include 1st Metatarsal-phalangeal joint cortisone injection, Blackman's extension insert, and supportive shoe wear. * Continue blackman's extension bilateral feet. * Follow up in 1 month. 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 insulin Plan: * debrided elongated thickened toenails x10 (3) Xerosis cutis: Code(s): L85.3 - Xerosis cutis Category: Medical Plan: * Continue Amlactin ointment (4) Tinea unguium: Code(s): B35.1 - Tinea unguium Category: Medical Plan: * debrided elongated thickened toenails x10 * Continue ciclopirox wolof Orders: Orders AMB Debridement/Avulsion Podiatry Today B35.1 - Tinea unguium, E11.42 - Type 2 diabetes mellitus with diabetic polyneuropathy, Z79.4 - half-way (current) use of insulin AMB Joint Injection/Aspiration Podiatry Today M20.21 - Hallux rigidus, right foot, M20.22 - Hallux rigidus, left foot AMB Joint Injection/Aspiration Podiatry Today M20.21 - Hallux rigidus, right foot, M20.22 - Hallux rigidus, left foot Coding Level of Care Code Est Pt Level 3 (65500) Diagnoses Hallux rigidus of both feet M20.21; M20.22 Laterality: bilateral Type 2 diabetes mellitus with diabetic polyneuropathy, with long-term current use of insulin E11.42; Z79.4 Diabetes mellitus intermediate designer insulin use: with detention use Xerosis cutis L85.3 Tinea unguium B35.1 CPT Codes Skin Debridement - CPT: 77859-Ubwoifmgcei of Nail 6+ ([id number]) Joint injectio/aspiration Podiatry - Joint Injection POD1: 88067 LT - Injection of small joint LT ([id number]) Joint injectio/aspiration Podiatry - Joint Injection POD1: 43585 LT - Injection of small joint LT ([id number]) Time Spent (min) 15 Comment x-ray review, injections, nail care
[2025-08-02 09:10] VITALS: BMI 27.4
--- OUTSIDE RECORDS SUMMARY | 2025-08-02 09:39 | XMS_ITS | Clinical Summary ---
Author Organization [facility] Address [address] [place] [id number] Phone Care Team Providers Care Clinical Evaluator Name Role Phone Elijah Hunter MD Primary Care Provider [phone] Social History Tobacco Use Types Packs/Day Years [...] topic Medical Devices Not on file Insurance [facility] MEDICARE REPLACEMENT [facility] MEDICARE REPLACEMENT [place] [id number] [facility] MED[facility]ARE REPLACEMENT [place] [id number] [facility] MEDICARE REPLACEMENT [place] [id number] [facility] MEDICARE REPLACEMENT [facility] MEDICARE REPLACEMENT Care Teams Clinical Evaluator Relationship Specialty Start Date End Date Elijah Hunter MD [address] [place] [address] [place] [address] PCP - General Internal Medicine 08/02/19 Additional Source Comments The information contained in this document represents components of the legal health record. It is not the complete legal health record.[facility]
--- OUTSIDE RECORDS SUMMARY | 2025-08-02 09:39 | XMS_ITS ---
Author Name Agatha Mayorga NP Address [address] [place] [address] Phone [phone] [facility] Care Team Providers Care Dye Mixer Name Role Phone Agatha Mayorga Unavailable [phone] VANITA MOLINA Unavailable [phone] TRIP GOETZ Unavailable [phone] MYAH ELDER Unavailable [phone] Elijah Hunter Unavailable [phone] DEVIN ESTRELLA Unavailable [phone] XOCHITL TAVAREZ Unavailable [phone] January Unavailable [phone] Neil Velazquez Unavailable [phone] Reason for Referral Not Available Allergies, adverse [...] AT BEDTIME 2022 No Data Available Nystatin 997568 UNIT/GM Crm APPLY TO AFF ECTED AREA [...] 2023-02-24 2024-01-30 BD UF MICRO PEN NEEDLE [id number] DIRECTED INJECTS 4 TIMES A DAY 2023-03-19 [...] StableRosuvastat in, Lantus, Humalog Has omnipod insulin [id number] 7.7% Monitor BG routinely, low carb diet, [...] (do not use for phone, instead use 76261-81) [facility] ([place] 05/[place]/2023 Migraine, unspecified, not intractable, without status migrainosusType 2 diabetes mellitus with other specified 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Hyperlipidemia, unspecifiedUnspecified dementia without behavioral disturbanceMajor depressive disorder, recurrent, moderateOveractive bladderObesity, unspecifiedAnxiety disorder, unspecified Estab. patient 30-39min; chronic exacerbation, 2 stable chronic or 1 acute illness add add modifier 95 for video, (do not use for phone, instead use 51084-98) [facility] Estab. patient 30-39min; chronic exacerbation, 2 stable chronic or 1 acute illness add add modifier 95 for video, (do not use for phone, instead use 87612-56) [facility]20[place] Estab. patient 30-39min; chronic exacerbation, 2 stable chronic or 1 acute illness add add modifier 95 for video, (do not use for phone, instead use 73288-23) [facility]20[place] Estab. patient 30-39min; chronic exacerbation, 2 stable chronic or 1 acute illness add add modifier 95 for video, (do not use for phone, instead use 25242-11) [facility]20[place] Estab. patient 30-39min; chronic exacerbation, 2 stable chronic or 1 acute illness add add modifier 95 for video, (do not use for phone, instead use 54294-39) [facility] [place] 05[place]2023 Estab. patient 30-39min; chronic exacerbation, 2 stable chronic or 1 acute illness add add modifier 95 for video, (do not use for phone, instead use 51576-65) [facility] [place] 05[place]22/2023 Estab. patient 30-39min; chronic exacerbation, 2 stable chronic or 1 acute illness add add modifier 95 for video, (do not use for phone, instead use 36983-52) [facility] [place] 05[place]22/20[place] Estab. patient 30-39min; chronic exacerbation, 2 stable chronic or 1 acute illness add add modifier 95 for video, (do not use for phone, instead use 80796-86) [facility] [place] Estab. patient 30-39min; chronic exacerbation, 2 stable chronic or 1 acute illness add add modifier 95 for video, (do not use for phone, instead use 14765-30) [facility] [place] 05[place]22/2023 Estab. patient 30-39min; chronic exacerbation, 2 stable chronic or 1 acute illness add add modifier 95 for video, (do not use for phone, instead use 66701-64) [facility] [place]24 Migraine, unspecified, not intractable, without status [...] (do not use for phone, instead use 96040-43) [facility] [place] Estab. patient 30-39min; chronic exacerbation, 2 stable chronic or 1 acute illness add add modifier 95 for video, (do not use for phone, instead use 33060-44) [facility] [place] 01[place]/20[place] Estab. patient 30-39min; chronic exacerbation, 2 stable chronic or 1 acute illness add add modifier 95 for video, (do not use for phone, instead use 56826-43) [facility] [place]/20[place] Estab. patient 30-39min; chronic exacerbation, 2 stable chronic or 1 acute illness add add modifier 95 for video, (do not use for phone, instead use 06369-51) [facility] [place] 01[place]/20[place] Estab. patient 30-39min; chronic exacerbation, 2 stable chronic or 1 acute illness add add modifier 95 for video, (do not use for phone, instead use 84068-29) [facility] [place] Estab. patient 30-39min; chronic exacerbation, 2 stable chronic or 1 acute illness add add modifier 95 for video, (do not use for phone, instead use 77745-07) [facility] [place] Estab. patient 30-39min; chronic exacerbation, 2 stable chronic or 1 acute illness add add modifier 95 for video, (do not use for phone, instead use 37139-94) [facility] [place] Estab. patient 30-39min; chronic exacerbation, 2 stable chronic or 1 acute illness add add modifier 95 for video, (do not use for phone, instead use 29984-69) [facility] [place] Estab. patient 30-39min; chronic exacerbation, 2 stable chronic or 1 acute illness add add modifier 95 for video, (do not use for phone, instead use 07916-06) [facility] [place] Estab. patient 20-29min; 1 stable chronic or 2 minor; add add modifier 95 for video, modifier 93 for phone [facility] [place] 12/13/2024 Migraine, unspecified, not intractable, without status [...] modifier 93 for phone [facility] [place] 12/13/2024 Estab. patient 20-29min; 1 stable chronic or 2 minor; add add modifier 95 for video, modifier 93 for phone [facility] [place] 12/13/2024 Estab. patient 20-29min; 1 stable chronic or 2 minor; add add modifier 95 for video, modifier 93 for phone [facility] [place] 12/13/2024 Estab. patient 20-29min; 1 stable chronic or 2 minor; add add modifier 95 for video, modifier 93 for phone [facility] [place] 12/13/2024 Estab. patient 20-29min; 1 stable chronic or 2 minor; add add modifier 95 for video, modifier 93 for phone [facility] [place] 12/13/2024 Estab. patient 20-29min; 1 stable chronic or 2 minor; add add modifier 95 for video, modifier 93 for phone [facility] [place] 12/13/2024 Vital Signs Date of [...] tive Time Current Smoking Status Never smoker 2025-07-14 1 Sex Female Gender identity Woman History of [...] (do not use for phone, instead use 33909-45) 04294 2022-08-13 No Data Available No Data Availa ble Estab. patient 30-39min; chronic exacerbation, 2 stable chronic or 1 acute illness add add modifier 95 for video, (do not use for phone, instead use 32002-83) [id number] 2023-05-22 No Data Available No Data Availa [...] (do not use for phone, instead use 83989-71) 05067 2024-01-30 No Data Available No Data Availa [...] 95 for video, modifier 93 for phone 97823 2024-12-13 No Data Available No Data Availa [...] education needs that may arise.Has omnipod insulin [id number] 7.7% last monthBlood sugar varies, since adding [...] arise.Emgality monthlyNeurology - Dr. Magallanes omnipod insulin psbtN2X 7.7% last monthBlood sugar varies, since adding Trulicity is not as highEndocrinology - Neil CooperRosuvastatin 40mg dailyDrRogerio Nava AquillinoDonepezil 10mg dailyMirtazepine 30mg QHSQuetiapine 75 QHSNeurology - Vanita CastrejonenOxybutynin dailyMyrbetriq dailyUrology - Dr. Trip Goetz, sees Myah Elder NP at same office at times.BMI 33.82Ed re losing weight, dietClonazepam 0.75mg DailyDaughter reports depression and anxiety is controlled well with medicationsby JANI DAIS PA-C 2024-01-30 09:03:36 Medication Review by prescribing [...] Dr. JohnsonRosuvastatin, Lantus, Humalog Has omnipod insulin [id number] 7.7% Monitor BG routinely, low carb diet, [...] on 12/09/24.StableRosuvastatin, Lantus, Humalog Has omnipod insulin [id number] 7.7% Monitor BG routinely, low carb diet, [...]
--- OUTSIDE RECORDS SUMMARY | 2025-08-02 09:40 | XMS_ITS | Data Portability ---
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 Migraine headache, responds to CGRP inhibitors CURRENTLY December 17, 2023: Headaches have now reemerged after stopping Emgality concerns for an allergic reaction. It is likely that she still had some residual effect when I last saw her on November 19. She is having increasing dizziness characterized by bending, likely related to her prior history of orthostatic hypotension. We discussed decreasing or stopping donepezil which may be contributing. I offered to either treat the migraine or decrease donepezil which may be contributing to orthostatic hypotension. She would like to do both. I offer to make 1 change. Her daughter suggests treating the headache. In the context of review of prescribed medications (in the EMR) here is that midodrine has been resumed at some point with a 90-day prescription as recently as September 2023. (Previously off of it in 2020 and appears to have been resumed in June 2023). Her daughter says that she is not taking this and that it was prescribed by her urologist. Aside from I defer to primary care to primary care, cardiology or the treating prescriber regarding ongoing midodrine and management of orthostatic dizziness. I offered a trial of Qulipta given possible allergic reaction to Emgality, prior constipation on Aimovig. We went over potential side effects which do include some nausea and constipation. We will begin at a moderate dose of 30 mg daily and we will make a decision at follow-up whether to increase it. If she has significant GI side effects, I will consider Nurtec but held off for now as her daughter is already burdened with administration of her multiple medications and adding every other day dosing may be a challenge. She elected to move forward. Prescription was sent to her pharmacy and within moments her pharmacy requested prior authorization from her office: She has responded positively to other CGRP inhibitors, I think it is reasonable to go ahead with prior authorization today. 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 We will make a decision about increasing to the 60 mg dose sometime after the biopsy if she is tolerating it and has insufficient benefit. Behavior in the late afternoon seems to be improved by taking quetiapine 25 mg at about 2 PM which is about 2 hours before the afternoon behavioral issues were emerging. Per her daughter, she is tolerating this without inducing late afternoon napping. At the end of our visit today, her daughter asks her daughter asks for prescription for nausea and dizziness for her mother. She has been getting nauseous with meals although it does not seem to be associated with headaches. Therefore, I defer to primary care regarding management of nausea (or her college professor). MEDICATION REVIEW Neurology: -Office trial of Emgality with loading dose February 05, 2022, discontinued November 05, 2023 in context of reported swelling --August 14, 2022 review of prescriptions: I renewed her donepezil 10mg December 2021. This was previously prescribed by her PCP. Mirtazapine 30 mg up from 22.5 mg September 11, from15 mg since July 11 to 08/09), Aimovig 70 mg/mL increased to 140 mg/mL October 2021, only received 1 dose and was given the 70 mg/mL dose per her daughter, last filled in October per the pharmacy (Changed from [employer] due to insurance barriers in spring 2020); quetiapine 50 mg nightly (reduced from 75 mg nightly due to dizziness Summer / fall 2020, additional 25 mg scribed as needed, started taking 3 tablets nightly June 2022, clonazepam 1 mg nightly reduced to 0.5mg April 2022, increased to 0.75 mg June 2022, melatonin 9mg nightly, all from us. 08/14/22 Trulicity weekly has been added Other meds from med review appointment on 08/09/2021 Meds as per 08/09/21 pill count review, Aspirin, Biotin, vitamin D, Docusate, Donepezil 10 mg, 1 tab at bedtime, Dorzolamide eyedrops, [facility] fiber, [facility] anti-gas 180 mg soft gel is prescribed as 1 tab 4 times daily but only takes it twice daily, Fluoxetine 20 mg capsule, 1 capsule twice daily, Fluticasone nasal spray, Humalog, Hydroxyzine 25 1 tablet by mouth 3 times daily as needed for itching: Usually takes it daily, Levothyroxine, Magnesium, Ondansetron 4 mg disintegrating tablets -take sometimes, Oxybutynin ER 10 mg tablet, Pantoprazole 40 mg tab daily Trulance 3 mg tablet 1 tab daily (does not have here, rarely uses) Xiidra eyedrops HEADACHE December 17, 2023: Interval development of left-sided headache off Emgality, also context of dermatologic scalp on the left November 19, 2023: No significant worsening of headaches 13 days overdue for Emgality, about 3/week, possibly improved from prior November 05, 2023: Developed transient injection site reaction characterized by swelling without induration or edema but at least 1 episode of swollen lip noted by daughter, Emgality discontinued. Has worsening of headache reported after she gets mad . July 03, 2023: Getting 10-minute episodes of migraine every morning and every afternoon on Emgality 120 mg/mL monthly autoinjector, JEAN-PIERRE expires October 12, 2023 December 03, 2022: Continued excellent effect from Emgality. As noted below, prior authorization appears to have , she has received October and November prescriptions. Will renew today and we will check on the prior authorization July 09, 2022: Continued effectiveness of Emgality, prior authorization to 10/12/2022 02/05/2022: Loading dose of Emgality 120 mg/mL autoinjector x2 in the office Previous constipation, breakthrough migraines and unclear displacement of Aimovig 70 mg increased to 140 mg and reverted to 70 mg/mL winter/spring 2021 ORTHOSTATIC DIZZINESS December 17, 2023: Ongoing dizziness, elected to hold off on reducing or discontinuing donepezil in favor of treating migraine. Noted midodrine has been represcribed. Daughter reports she is not taking it July 03, 2023: Recurrent dizziness over the last 2 months. Suggested discussing with PCP and cardiology. May reduce Seroquel though suspect this is less likely the issue as she has now been taking up to 3 most nights for about a year August 14, 2022: She has not had any dizziness associated with increasing Seroquel from 50 mg nightly to 75 mg nightly since late summer / early 2021 AGITATION AND WAKING December 17, 2023: Improved late afternoon behavioral issues with 25 mg quetiapine shifted to 2 PM instead of 4pm and continued 75 mg at night. November 19, 2023: Has tried Seroquel 25 mg around 4 in the afternoon without side effect, has not tried it before the behavioral issues occur in the mid afternoon November 05, 2023: Increasing afternoon behavioral issues. Has not yet tried early to mid afternoon quetiapine August 05, 2023: Now having episodes of behavioral change in the afternoon 2-3 times per week and ongoing difficulty with falling asleep and sometimes return of behavioral issues on clonazepam 0.75 mg nightly, mirtazapine 30 mg nightly and quetiapine 75 mg nightly melatonin 9 mg nightly July 03, 2023: Worsening in the last week and a half. No changes to medications December 03, 2022: Continues to do well with clonazepam 0.75 mg nightly, mirtazapine 30 mg nightly and quetiapine 75 mg nightly. The exception is when Emgality is wearing off at the end of the month. There is also some daytime sleepiness. August 14, 2022: Improved since increasing clonazepam from 0.5 mg nightly to 0.75 mg nightly July 09, 2022: Worsening in June. Clonazepam reduced from 1 mg to 0.5 mg in April. Quetiapine increased from two 25 mg tablets to three 25 mg tablets at night and June. It appears that she has done well on 0.75 mg of clonazepam in the past. We will increase it. April 30 2022. Continues to do well on quetiapine 25 mg, 2-3 tabs at night. She continues melatonin up to 3 mg 3 times daily. Sleep has been doing well with the single issue of going off of clonazepam 1 mg over the last week. We discussed that her intention was to reduce this when she was doing well and so we will resume it at half the dose of 0.5 mg for 1 month with the option to potentially continue it for second month versus discontinue versus 0.25 mg (10/14 a 0.5tab) if she is not tolerating discontinuation. 01/01/22 she has been awakening every 3-4 nights and plays with her dolls but overall is improved. We discussed decreasing clonazepam at her last visit but we did not discuss this today. She has not implemented the changes for headache management that we discussed last month. PREVIOUSLY: She has some ongoing agitation and awakening with night terrors described by her daughter Mary. There are some moments of self soothing described by Ms. Dykes herself. Episodes of, pulling her hair have improved with increase of melatonin from 6 mg to 9 mg. Previous increase of Seroquel past 75 mg hasn t helped and has caused somnolence. Previous increase of clonazepam past 0.75 mg hasn t helped. In the context of placing this symptom in the category of of REM behavior sleep disorder, there has been response most recently with melatonin 6 mg added on top of the Seroquel and clonazepam which helped previously. We will try melatonin 9 mg. -When there is no other medication change at a visit, we will consider reducing clonazepam back down to 0.75 mg, the highest dose at which there was a titration benefit for nighttime agitation and acting out dreams. MOOD November 05, 2023: Increasingly having behavioral issues in the afternoon around 2 to 3 PM since 2022. See agitation/behavior below December 03, 2022: Continues to do well August 14 2022: Currently doing well. Less waking and crying. July 09, 2022, has been waking up crying more, afternoon behavior changes -There was an issue with mirtazapine prescription at one-point, this has been resolved 01/01/22: Mood appears to be improved. She is sleeping better most of the time although requires prompts to go to bed. Constipation does seem to contribute to nocturnal awakening. She is no longer pulling at her hair. Previously Mood continues to be a concern and descriptors of crying at night and difficulty sleeping 3 to 4 days/week remain a concern however her city plant supervisor Mary is noticed an emphatic marked improvement on mirtazapine 30 mg compared to August even if the descriptors of the behaviors remain similar. We have had some concern that escalating the mirtazapine may not make much difference in the nocturnal awakening and could have a paradoxical effect, however, it is made enough of a difference during the sleeping nights that her city plant supervisor and her are able to sleep at least half the week. We will make no further mirtazapine adjustments today. We will remember to consider cutting down on the melatonin if it works or the patient becomes too sleepy. Quetiapine was perhaps better at 75 mg than its current 50 mg dose for helping behavioral dysregulation. It was cut down to 50 mg because of dizziness. For this reason, her daughter, Mary has not given her an additional 25 mg at night and she is concerned about the potentially escalating the dose again. Cardiology has just decreased fludrocortisone and midodrine on August 08, right after her follow-up with [facility] on that day. Perhaps an increase of quetiapine will help without the side effect of dizziness at this point, therefore however her daughter Mary is very reluctant to increase the quetiapine. We have discussed this at several visits and did not readdress this today except to confirm that she continues 50 mg at night. BLADDER July 03, 2023: Using depends, continues with urology, may start Botox treatment PREVIOUSLY: Oxybutynin, which has been started by urology per chart over summer 2020, may worsen mental status and cause confusion in the elderly with dementia. Other directions of intervention, if possible, would be more optimal. We had discussed Myrbetriq trial but she has already tried this as per updated urology notes. She continues the oxybutynin presently. We had discussed the possibility of discontinuation if her urologist agreed if the patient could be convinced to make do just with a pull-up/diaper. We will continue to defer to primary care or urology on this issue. It was noted by urology that Myrbetriq was not effective. 01/01/22 she still has some dizziness with changes of position PREVIOUSLY: She has had further episodes causing her to fall early in 2020 although her daughter has caught her. We review our discussion from January 2020 on this. She was on midodrine and fludrocortisone up through 08/08/2021 and saw her pattern keeper after her appointment with us 08/08. Midodrine and fludrocortisone have now been discontinued. GAIT July 03, 2023: She has not had falls but generally does not use her quad cane when she is at home and only when she is out. Again recommended using walker more, particularly given recent increased in venous April 30 2022: She does have a walker at home but primarily continues with her quad cane. Suggest that she begin using the walker more. 02/05/22: She primarily ambulates with her quad cane. PREVIOUSLY: Also, gait imbalance associated at least partially with worsening of chronic orthostatic dizziness, with fall early 2020. She is using walker and/or daughter stays very close to her during ambulation. 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 Subsequently, we thought this ascertainment bias combined with the protective effect on ADLs of care by her within . IHe had then thought of Lewy body disease. She was quite young for Lewy body disease however. Additionally, there has been no significant emergence of motor parkinsonism. Her REM behavior disorder type symptoms are atypical in that they have responded to Seroquel. Given early age of onset, frontotemporal dementia, behavioral variant is most likely. The early involvement of both bladder and bowel incontinence supports this. With the incontinence and the orthostatic dizziness, as well as possible REM behavior sleep disorder, multisystems atrophy is also a possibility. It also tends to occur at an earlier age than other dementias. It does not typically have such prominent behavioral dysregulation, however. We have been wary of acetylcholinesterase inhibitor medication because of potential side effects of dizziness, context her orthostatic hypotension. In any case, frontotemporal dementia does not typically respond to acetylcholinesterase inhibitor medication. Memantine is not known to help for frontotemporal dementia. Her cognitive deficit does not seem moderate to severe so I have not suggested this. It remains a possibility in case the diagnosis is not frontotemporal dementia. PLAN Debo Krause December 17 2023 FOR PREVENTION OF HEADACHE: START Qulipta (atogepant) 30mg tablets for 1 tablet once daily. 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 Possible side effects include nausea 5 to 9%, constipation 6%, fatigue 4 to 6%, decreased appetite 1 to 2%. Do not take Qulipta if you are taking verapamil. If side effects are mild, wait up to a week to see if your body gets used to the medication and the side effects go away. If side effects are not mild or do not go away after a week, stay on the medication if the side effects are very mild, otherwise go back to the lower dose or stop the medication. Do not drink large amounts of grapefruit while you are taking this medicine as this could make the medication too strong. A single cup of grapefruit juice is okay. Qulipta concentration in the bloodstream can in general be increased by strong CY inhibitors. If you start any new medications with another healthcare provider, please ask that healthcare provider if the new medication is a strong CY inhibitor. Such medications are not common. However, if it is, please contact me to discuss reduction of Qulipta dose. If the medication causes no significant side effects, and helps, stay on the dose at which it helps as long as you have medication for it from my samples Qulipta has already been approved by insurance on day of service Regarding dizziness reported July 02, 2023 and thru present You have reported episodes of dizziness, some of them occur while you are standing any later mentioned some of them occur when you stand up. You do not have any signs on examination that suggest that this comes from the brain. You have been on medication to raise your blood pressure in the past. I suggest that you discuss it with primary care and with your pattern keeper. In the meanwhile, please use caution when you change positions and please continue to use your cane, even in the house. I also suggest a walker when you are outside of the house. These episodes have been associated with fleeting episodes of headache pain and some nausea. There is a possibility that it is related to your migraines, possible worsening when off of prevention last month although reemergence predated discontinuation of Emgality. We discussed the possibility of reducing donepezil today which may be contributing. You elected to focus on migraine prevention. We will consider it at a future visit Please continue to work with primary care and cardiology. FOR MEMORY: In the context of renewing your medications in December 2021, I took over your donepezil from your PCP. Please continue donepezil 10 mg daily. This can also increase orthostatic hypotension for dizziness, we will discuss potential reduction or discontinuation at a future visit, particularly if you report dizziness again To the patient's daughter: Previously: DIZZINESS -Please continue to work with cardiology and primary care. You have elected to focus on reemergence of migraine headaches rather than dizziness today, we will consider reduction of donepezil if there is no explanation for dizziness at future visit -For occasional dizziness while walking so that your daughter needs to hold onto you, please continue to work with your pattern keeper. We are aware that midodrine and fludrocortisone were discontinued after08/08/21. Please use your walker at all times. TO HELP YOUR MOOD BEING DOWN AND CRYING, AND WAKING CRYING DURING THE NIGHT: And new 2022 episodes of afternoon screaming and hair pulling For episodes of behavior escalation in the afternoon reported 2022, and difficulty with falling asleep and hair pulling. CONTINUE quetiapine, 1 tablet at 2pm and 3 tablets at bedtime CONTINUE clonazepam 0.75 mg nightly. You will need to give her 1-1/2 of the 0.5 mg tablets every night. CONTINUE mirtazapine 30 mg, 1 tablet 1 hour before bedtime. Prescription renewed. To prevent abnormal fighting movements and pulling her hair during sleep: CONTINUE melatonin 3 mg tablets, 3 tablets 2 hours before bedtime. Patient notes that she is sleeping well and has excessive sleepiness in the day, you may try reducing this to tablets 2 hours before bedtime Follow-up about 2 weeks after the January 20 procedure to see how things are going on Qulipta and possibly to address dizziness via reduction of donepezil, sooner if you do not tolerate Qulipta. 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 Migraine headache, responds to CGRP inhibitors CURRENTLY February 10, 2024: She reports excellent benefit from Qulipta 30 mg daily for migraine prevention. It has been approved until October 12, 2024 and up to 60 mg. I will not make an adjustment today as Qulipta 30 mg is helping without side effect, but may be a future option if worsening migraines Amerge. Per her daughter, behavioral issues are reasonably well-controlled on mirtazapine 30 mg at night, quetiapine and 75 mg nightly and 25 mg as needed, clonazepam 0.75 mg nightly and melatonin 9 mg nightly (remotely, we have discussed reducing this but have not thus far). She does continue with some dizziness. As we are not making any changes today and that donepezil can contribute to dizziness, we will plan to reduce it to 5 mg. We discussed follow-up options, last time she was doing this well, we opted for 6-month follow-up but issues emerged and she was not seen for 7 or 8 months and so more recently we have returned to every 2-month follow-ups. As things are now improved again, I suggest 3 to 4-month follow-up, she and her daughter agree MEDICATION REVIEW Neurology: -December 17, 2023: Qulipta 30 mg daily started -Office trial of Emgality with loading dose February 05, 2022, discontinued November 05, 2023 in context of reported swelling --August 14, 2022 review of prescriptions: I renewed her donepezil 10mg December 2021. This was previously prescribed by her PCP. Mirtazapine 30 mg up from 22.5 mg September 11, from15 mg since July 11 to 08/09), Aimovig 70 mg/mL increased to 140 mg/mL October 2021, only received 1 dose and was given the 70 mg/mL dose per her daughter, last filled in October per the pharmacy (Changed from [employer] due to insurance barriers in spring 2020); quetiapine 50 mg nightly (reduced from 75 mg nightly due to dizziness Summer / fall 2020, additional 25 mg scribed as needed, started taking 3 tablets nightly June 2022, clonazepam 1 mg nightly reduced to 0.5mg April 2022, increased to 0.75 mg June 2022, melatonin 9mg nightly, all from . 08/14/22 Trulicity weekly has been added Other meds from med review appointment on 08/09/2021 Meds as per 08/09/21 pill count review, Aspirin, Biotin, vitamin D, Docusate, Donepezil 10 mg, 1 tab at bedtime, Dorzolamide eyedrops, [facility] fiber, [facility]S anti-gas 180 mg soft gel is prescribed as 1 tab 4 times daily but only takes it twice daily, Fluoxetine 20 mg capsule, 1 capsule twice daily, Fluticasone nasal spray, Humalog, Hydroxyzine 25 1 tablet by mouth 3 times daily as needed for itching: Usually takes it daily, Levothyroxine, Magnesium, Ondansetron 4 mg disintegrating tablets -take sometimes, Oxybutynin ER 10 mg tablet, Pantoprazole 40 mg tab daily Trulance 3 mg tablet 1 tab daily (does not have here, rarely uses) Xiidra eyedrops HEADACHE February 10, 2024: Excellent benefit from Qulipta 30 mg daily without side effect December 17, 2023: Interval development of left-sided headache off Emgality, also context of dermatologic scalp on the left November 19, 2023: No significant worsening of headaches 13 days overdue for Emgality, about 3/week, possibly improved from prior November 05, 2023: Developed transient injection site reaction characterized by swelling without induration or edema but at least 1 episode of swollen lip noted by daughter, Emgality discontinued. Has worsening of headache reported after she gets mad . July 03, 2023: Getting 10-minute episodes of migraine every morning and every afternoon on Emgality 120 mg/mL monthly autoinjector, PA expires October 12, 2023 December 03, 2022: Continued excellent effect from Emgality. As noted below, prior authorization appears to have , she has received October and November prescriptions. Will renew today and we will check on the prior authorization July 09, 2022: Continued effectiveness of Emgality, prior authorization to 10/12/2022 02/05/2022: Loading dose of Emgality 120 mg/mL autoinjector x2 in the office Previous constipation, breakthrough migraines and unclear displacement of Aimovig 70 mg increased to 140 mg and reverted to 70 mg/mL winter/spring 2021 ORTHOSTATIC DIZZINESS February 10, 2024: Donepezil reduced from 10 mg to 5 mg December 17, 2023: Ongoing dizziness, elected to hold off on reducing or discontinuing donepezil in favor of treating migraine. Noted midodrine has been represcribed. Daughter reports she is not taking it July 03, 2023: Recurrent dizziness over the last 2 months. Suggested discussing with PCP and cardiology. May reduce Seroquel though suspect this is less likely the issue as she has now been taking up to 3 most nights for about a year August 14, 2022: She has not had any dizziness associated with increasing Seroquel from 50 mg nightly to 75 mg nightly since late summer / early 2021 AGITATION AND WAKING February 10, 2024, has not required the afternoon as needed quetiapine recently December 17, 2023: Improved late afternoon behavioral issues with 25 mg quetiapine shifted to 2 PM instead of 4pm and continued 75 mg at night. November 19, 2023: Has tried Seroquel 25 mg around 4 in the afternoon without side effect, has not tried it before the behavioral issues occur in the mid afternoon November 05, 2023: Increasing afternoon behavioral issues. Has not yet tried early to mid afternoon quetiapine August 05, 2023: Now having episodes of behavioral change in the afternoon 2-3 times per week and ongoing difficulty with falling asleep and sometimes return of behavioral issues on clonazepam 0.75 mg nightly, mirtazapine 30 mg nightly and quetiapine 75 mg nightly melatonin 9 mg nightly July 03, 2023: Worsening in the last week and a half. No changes to medications December 03, 2022: Continues to do well with clonazepam 0.75 mg nightly, mirtazapine 30 mg nightly and quetiapine 75 mg nightly. The exception is when Emgality is wearing off at the end of the month. There is also some daytime sleepiness. August 14, 2022: Improved since increasing clonazepam from 0.5 mg nightly to 0.75 mg nightly July 09, 2022: Worsening in June. Clonazepam reduced from 1 mg to 0.5 mg in April. Quetiapine increased from two 25 mg tablets to three 25 mg tablets at night and June. It appears that she has done well on 0.75 mg of clonazepam in the past. We will increase it. April 30 2022. Continues to do well on quetiapine 25 mg, 2-3 tabs at night. She continues melatonin up to 3 mg 3 times daily. Sleep has been doing well with the single issue of going off of clonazepam 1 mg over the last week. We discussed that her intention was to reduce this when she was doing well and so we will resume it at half the dose of 0.5 mg for 1 month with the option to potentially continue it for second month versus discontinue versus 0.25 mg (10/14 a 0.5tab) if she is not tolerating discontinuation. 01/01/22 she has been awakening every 3-4 nights and plays with her dolls but overall is improved. We discussed decreasing clonazepam at her last visit but we did not discuss this today. She has not implemented the changes for headache management that we discussed last month. PREVIOUSLY: She has some ongoing agitation and awakening with night terrors described by her daughter Mary. There are some moments of self soothing described by Ms. Dykes herself. Episodes of, pulling her hair have improved with increase of melatonin from 6 mg to 9 mg. Previous increase of Seroquel past 75 mg hasn t helped and has caused somnolence. Previous increase of clonazepam past 0.75 mg hasn t helped. In the context of placing this symptom in the category of of REM behavior sleep disorder, there has been response most recently with melatonin 6 mg added on top of the Seroquel and clonazepam which helped previously. We will try melatonin 9 mg. -When there is no other medication change at a visit, we will consider reducing clonazepam back down to 0.75 mg, the highest dose at which there was a titration benefit for nighttime agitation and acting out dreams. MOOD November 05, 2023: Increasingly having behavioral issues in the afternoon around 2 to 3 PM since 2022. See agitation/behavior below December 03, 2022: Continues to do well August 14 2022: Currently doing well. Less waking and crying. July 09, 2022, has been waking up crying more, afternoon behavior changes -There was an issue with mirtazapine prescription at one-point, this has been resolved 01/01/22: Mood appears to be improved. She is sleeping better most of the time although requires prompts to go to bed. Constipation does seem to contribute to nocturnal awakening. She is no longer pulling at her hair. Previously Mood continues to be a concern and descriptors of crying at night and difficulty sleeping 3 to 4 days/week remain a concern however her city plant supervisor Mary is noticed an emphatic marked improvement on mirtazapine 30 mg compared to August even if the descriptors of the behaviors remain similar. We have had some concern that escalating the mirtazapine may not make much difference in the nocturnal awakening and could have a paradoxical effect, however, it is made enough of a difference during the sleeping nights that her city plant supervisor and her are able to sleep at least half the week. We will make no further mirtazapine adjustments today. We will remember to consider cutting down on the melatonin if it works or the patient becomes too sleepy. Quetiapine was perhaps better at 75 mg than its current 50 mg dose for helping behavioral dysregulation. It was cut down to 50 mg because of dizziness. For this reason, her daughter, Mary has not given her an additional 25 mg at night and she is concerned about the potentially escalating the dose again. Cardiology has just decreased fludrocortisone and midodrine on August 08, right after her follow-up with [facility] on that day. Perhaps an increase of quetiapine will help without the side effect of dizziness at this point, therefore however her daughter Mary is very reluctant to increase the quetiapine. We have discussed this at several visits and did not readdress this today except to confirm that she continues 50 mg at night. BLADDER July 03, 2023: Using depends, continues with urology, may start Botox treatment PREVIOUSLY: Oxybutynin, which has been started by urology per chart over summer 2020, may worsen mental status and cause confusion in the elderly with dementia. Other directions of intervention, if possible, would be more optimal. We had discussed Myrbetriq trial but she has already tried this as per updated urology notes. She continues the oxybutynin presently. We had discussed the possibility of discontinuation if her urologist agreed if the patient could be convinced to make do just with a pull-up/diaper. We will continue to defer to primary care or urology on this issue. It was noted by urology that Myrbetriq was not effective. 01/01/22 she still has some dizziness with changes of position PREVIOUSLY: She has had further episodes causing her to fall early in 2020 although her daughter has caught her. We review our discussion from January 2020 on this. She was on midodrine and fludrocortisone up through 08/08/2021 and saw her pattern keeper after her appointment with us 08/08. Midodrine and fludrocortisone have now been discontinued. GAIT July 03, 2023: She has not had falls but generally does not use her quad cane when she is at home and only when she is out. Again recommended using walker more, particularly given recent increased in venous lorenzo 2021: She does have a walker at home but primarily continues with her quad cane. Suggest that she begin using the walker more. 02/05/22: She primarily ambulates with her quad cane. PREVIOUSLY: Also, gait imbalance associated at least partially with worsening of chronic orthostatic dizziness, with fall early 2020. She is using walker and/or daughter stays very close to her during ambulation. 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 Subsequently, we thought this ascertainment bias combined with the protective effect on ADLs of care by her within . IHe had then thought of Lewy body disease. She was quite young for Lewy body disease however. Additionally, there has been no significant emergence of motor parkinsonism. Her REM behavior disorder type symptoms are atypical in that they have responded to Seroquel. Given early age of onset, frontotemporal dementia, behavioral variant is most likely. The early involvement of both bladder and bowel incontinence supports this. With the incontinence and the orthostatic dizziness, as well as possible REM behavior sleep disorder, multisystems atrophy is also a possibility. It also tends to occur at an earlier age than other dementias. It does not typically have such prominent behavioral dysregulation, however. We have been wary of acetylcholinesterase inhibitor medication because of potential side effects of dizziness, context her orthostatic hypotension. In any case, frontotemporal dementia does not typically respond to acetylcholinesterase inhibitor medication. Memantine is not known to help for frontotemporal dementia. Her cognitive deficit does not seem moderate to severe so I have not suggested this. It remains a possibility in case the diagnosis is not frontotemporal dementia. PLAN Debo Krause February 10 2024 FOR MEMORY: Due to dizziness, REDUCE donepezil from 10 mg to 5 mg. We may consider further decrease at a follow-up (In the context of renewing your medications in December 2021, I took over your donepezil from your PCP.) To the patient's daughter: DIZZINESS -As discussed above, we are reducing to 5 mg to see if this helps with the dizziness, as previously discussed as it can contribute to orthostatic hypotension -Please continue to work with cardiology and primary care. -For occasional dizziness while walking so that your daughter needs to hold onto you, please continue to work with your pattern keeper. We are aware that midodrine and fludrocortisone were discontinued after08/08/21. Please use your walker at all times. FOR PREVENTION OF HEADACHE: CONTINUE Qulipta (atogepant) 30mg tablets for 1 tablet once daily. Qulipta, up to 60 mg has been approved until October 12, 2024 Possible side effects include nausea 5 to 9%, constipation 6%, fatigue 4 to 6%, decreased appetite 1 to 2%. Do not take Qulipta if you are taking verapamil. If side effects are mild, wait up to a week to see if your body gets used to the medication and the side effects go away. If side effects are not mild or do not go away after a week, stay on the medication if the side effects are very mild, otherwise go back to the lower dose or stop the medication. Do not drink large amounts of grapefruit while you are taking this medicine as this could make the medication too strong. A single cup of grapefruit juice is okay. Qulipta concentration in the bloodstream can in general be increased by strong CY inhibitors. If you start any new medications with another healthcare provider, please ask that healthcare provider if the new medication is a strong CY inhibitor. Such medications are not common. However, if it is, please contact me to discuss reduction of Qulipta dose. If the medication causes no significant side effects, and helps, stay on the dose at which it helps as long as you have medication for it from my samples TO HELP YOUR MOOD BEING DOWN AND CRYING, AND WAKING CRYING DURING THE NIGHT: And new 2022 episodes of afternoon screaming and hair pulling and abnormal biting movements in the night as well For episodes of behavior escalation in the afternoon reported 2022 CONTINUE quetiapine, 1 tablet at 2pm as needed and 3 tablets at bedtime CONTINUE clonazepam 0.75 mg nightly. You will need to give her 1-1/2 of the 0.5 mg tablets every night. CONTINUE mirtazapine 30 mg, 1 tablet 1 hour before bedtime. Prescription renewed. CONTINUE melatonin 3 mg tablets, 3 tablets 2 hours before bedtime. Patient notes that she is sleeping well and has excessive sleepiness in the day, you may try reducing this to tablets 2 hours before bedtime Follow up in 3 to [address] 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 Migraine headache, responds to CGRP inhibitors --June 01, 2024 dizziness better with donepezil reduction to 5 mg; heavy tongue and tiredness in afternoon 2-3 times per week. >>>>>>>>>>>>June 01, 2024 I suggest discontinuing reducing melatonin from 7.5 mg nightly down to 6 mg nightly to help the apparent drowsiness starting around noon time 2 or three times per week. Hopefully REM behavior sleep disorder and sleep disruption will not emerge. We will monitor. >>>>>>>>>>>>February 10, 2024: She reports excellent benefit from Qulipta 30 mg daily for migraine prevention. It has been approved until October 12, 2024 and up to 60 mg. I will not make an adjustment today as Qulipta 30 mg is helping without side effect, but may be a future option if worsening migraines Amerge. Per her daughter, behavioral issues are reasonably well-controlled on mirtazapine 30 mg at night, quetiapine and 75 mg nightly and 25 mg as needed, clonazepam 0.75 mg nightly and melatonin 9 mg nightly (remotely, we have discussed reducing this but have not thus far). She does continue with some dizziness. As we are not making any changes today and that donepezil can contribute to dizziness, we will plan to reduce it to 5 mg. We discussed follow-up options, last time she was doing this well, we opted for 6-month follow-up but issues emerged and she was not seen for 7 or 8 months and so more recently we have returned to every 2-month follow-ups. As things are now improved again, I suggest 3 to 4-month follow-up, she and her daughter agree MEDICATION REVIEW February 10 2024 Neurology: -December 17, 2023: Qulipta 30 mg daily started -Office trial of Emgality with loading dose February 05, 2022, discontinued November 05, 2023 in context of reported swelling --August 14, 2022 review of prescriptions: I renewed her donepezil 10mg December 2021. This was previously prescribed by her PCP. Mirtazapine 30 mg up from 22.5 mg September 11, from15 mg since July 11 to 08/09), Aimovig 70 mg/mL increased to 140 mg/mL October 2021, only received 1 dose and was given the 70 mg/mL dose per her daughter, last filled in October per the pharmacy (Changed from [email or web address] due to insurance barriers in spring 2020); quetiapine 50 mg nightly (reduced from 75 mg nightly due to dizziness Summer / fall 2020, additional 25 mg scribed as needed, started taking 3 tablets nightly June 2022, clonazepam 1 mg nightly reduced to 0.5mg April 2022, increased to 0.75 mg June 2022, melatonin 9mg nightly, all from us. 08/14/22 Trulicity weekly has been added Other meds from med review appointment on 08/09/2021 Meds as per 08/09/21 pill count review, Aspirin, Biotin, vitamin D, Docusate, Donepezil 10 mg, 1 tab at bedtime, Dorzolamide eyedrops, [facility] fiber, [facility] anti-gas 180 mg soft gel is prescribed as 1 tab 4 times daily but only takes it twice daily, Fluoxetine 20 mg capsule, 1 capsule twice daily, Fluticasone nasal spray, Humalog, Hydroxyzine 25 1 tablet by mouth 3 times daily as needed for itching: Usually takes it daily, Levothyroxine, Magnesium, Ondansetron 4 mg disintegrating tablets -take sometimes, Oxybutynin ER 10 mg tablet, Pantoprazole 40 mg tab daily Trulance 3 mg tablet 1 tab daily (does not have here, rarely uses) Xiidra eyedrops HEADACHE February 10, 2024: Excellent benefit from Qulipta 30 mg daily without side effect December 17, 2023: Interval development of left-sided headache off Emgality, also context of dermatologic scalp on the left November 19, 2023: No significant worsening of headaches 13 days overdue for Emgality, about 3/week, possibly improved from prior November 05, 2023: Developed transient injection site reaction characterized by swelling without induration or edema but at least 1 episode of swollen lip noted by daughter, Emgality discontinued. Has worsening of headache reported after she gets mad . July 03, 2023: Getting 10-minute episodes of migraine every morning and every afternoon on Emgality 120 mg/mL monthly autoinjector, PA expires October 12, 2023 December 03, 2022: Continued excellent effect from Emgality. As noted below, prior authorization appears to have , she has received October and November prescriptions. Will renew today and we will check on the prior authorization July 09, 2022: Continued effectiveness of Emgality, prior authorization to 10/12/2022 02/05/2022: Loading dose of Emgality 120 mg/mL autoinjector x2 in the office Previous constipation, breakthrough migraines and unclear displacement of Aimovig 70 mg increased to 140 mg and reverted to 70 mg/mL winter/spring 2021 ORTHOSTATIC DIZZINESS February 10, 2024: Donepezil reduced from 10 mg to 5 mg December 17, 2023: Ongoing dizziness, elected to hold off on reducing or discontinuing donepezil in favor of treating migraine. Noted midodrine has been represcribed. Daughter reports she is not taking it July 03, 2023: Recurrent dizziness over the last 2 months. Suggested discussing with PCP and cardiology. May reduce Seroquel though suspect this is less likely the issue as she has now been taking up to 3 most nights for about a year August 14, 2022: She has not had any dizziness associated with increasing Seroquel from 50 mg nightly to 75 mg nightly since late summer / early 2021 AGITATION AND WAKING February 10, 2024, has not required the afternoon as needed quetiapine recently December 17, 2023: Improved late afternoon behavioral issues with 25 mg quetiapine shifted to 2 PM instead of 4pm and continued 75 mg at night. November 19, 2023: Has tried Seroquel 25 mg around 4 in the afternoon without side effect, has not tried it before the behavioral issues occur in the mid afternoon November 05, 2023: Increasing afternoon behavioral issues. Has not yet tried early to mid afternoon quetiapine August 05, 2023: Now having episodes of behavioral change in the afternoon 2-3 times per week and ongoing difficulty with falling asleep and sometimes return of behavioral issues on clonazepam 0.75 mg nightly, mirtazapine 30 mg nightly and quetiapine 75 mg nightly melatonin 9 mg nightly July 03, 2023: Worsening in the last week and a half. No changes to medications December 03, 2022: Continues to do well with clonazepam 0.75 mg nightly, mirtazapine 30 mg nightly and quetiapine 75 mg nightly. The exception is when Emgality is wearing off at the end of the month. There is also some daytime sleepiness. August 14, 2022: Improved since increasing clonazepam from 0.5 mg nightly to 0.75 mg nightly July 09, 2022: Worsening in June. Clonazepam reduced from 1 mg to 0.5 mg in April. Quetiapine increased from two 25 mg tablets to three 25 mg tablets at night and June. It appears that she has done well on 0.75 mg of clonazepam in the past. We will increase it. April 30 2022. Continues to do well on quetiapine 25 mg, 2-3 tabs at night. She continues melatonin up to 3 mg 3 times daily. Sleep has been doing well with the single issue of going off of clonazepam 1 mg over the last week. We discussed that her intention was to reduce this when she was doing well and so we will resume it at half the dose of 0.5 mg for 1 month with the option to potentially continue it for second month versus discontinue versus 0.25 mg (/2 a 0.5tab) if she is not tolerating discontinuation. 01/01/22 she has been awakening every 3-4 nights and plays with her dolls but overall is improved. We discussed decreasing clonazepam at her last visit but we did not discuss this today. She has not implemented the changes for headache management that we discussed last month. PREVIOUSLY: She has some ongoing agitation and awakening with night terrors described by her daughter Mary. There are some moments of self soothing described by Ms. Dykes herself. Episodes of, pulling her hair have improved with increase of melatonin from 6 mg to 9 mg. Previous increase of Seroquel past 75 mg hasn t helped and has caused somnolence. Previous increase of clonazepam past 0.75 mg hasn t helped. In the context of placing this symptom in the category of of REM behavior sleep disorder, there has been response most recently with melatonin 6 mg added on top of the Seroquel and clonazepam which helped previously. We will try melatonin 9 mg. -When there is no other medication change at a visit, we will consider reducing clonazepam back down to 0.75 mg, the highest dose at which there was a titration benefit for nighttime agitation and acting out dreams. MOOD November 05, 2023: Increasingly having behavioral issues in the afternoon around 2 to 3 PM since 2022. See agitation/behavior below December 03, 2022: Continues to do well August 14 2022: Currently doing well. Less waking and crying. July 09, 2022, has been waking up crying more, afternoon behavior changes -There was an issue with mirtazapine prescription at one-point, this has been resolved 01/01/22: Mood appears to be improved. She is sleeping better most of the time although requires prompts to go to bed. Constipation does seem to contribute to nocturnal awakening. She is no longer pulling at her hair. Previously Mood continues to be a concern and descriptors of crying at night and difficulty sleeping 3 to 4 days/week remain a concern however her city plant supervisor Mary is noticed an emphatic marked improvement on mirtazapine 30 mg compared to August even if the descriptors of the behaviors remain similar. We have had some concern that escalating the mirtazapine may not make much difference in the nocturnal awakening and could have a paradoxical effect, however, it is made enough of a difference during the sleeping nights that her city plant supervisor and her are able to sleep at least half the week. We will make no further mirtazapine adjustments today. We will remember to consider cutting down on the melatonin if it works or the patient becomes too sleepy. Quetiapine was perhaps better at 75 mg than its current 50 mg dose for helping behavioral dysregulation. It was cut down to 50 mg because of dizziness. For this reason, her daughter, Mary has not given her an additional 25 mg at night and she is concerned about the potentially escalating the dose again. Cardiology has just decreased fludrocortisone and midodrine on August 08, right after her follow-up with [facility] on that day. Perhaps an increase of quetiapine will help without the side effect of dizziness at this point, therefore however her daughter Mary is very reluctant to increase the quetiapine. We have discussed this at several visits and did not readdress this today except to confirm that she continues 50 mg at night. BLADDER July 03, 2023: Using depends, continues with urology, may start Botox treatment PREVIOUSLY: Oxybutynin, which has been started by urology per chart over summer 2020, may worsen mental status and cause confusion in the elderly with dementia. Other directions of intervention, if possible, would be more optimal. We had discussed Myrbetriq trial but she has already tried this as per updated urology notes. She continues the oxybutynin presently. We had discussed the possibility of discontinuation if her urologist agreed if the patient could be convinced to make do just with a pull-up/diaper. We will continue to defer to primary care or urology on this issue. It was noted by urology that Myrbetriq was not effective. 01/01/22 she still has some dizziness with changes of position PREVIOUSLY: She has had further episodes causing her to fall early in 2020 although her daughter has caught her. We review our discussion from January 2020 on this. She was on midodrine and fludrocortisone up through 08/08/2021 and saw her pattern keeper after her appointment with us 08/08. Midodrine and fludrocortisone have now been discontinued. GAIT July 03, 2023: She has not had falls but generally does not use her quad cane when she is at home and only when she is out. Again recommended using walker more, particularly given recent increased in venous lorenzo 2021: She does have a walker at home but primarily continues with her quad cane. Suggest that she begin using the walker more. 02/05/22: She primarily ambulates with her quad cane. PREVIOUSLY: Also, gait imbalance associated at least partially with worsening of chronic orthostatic dizziness, with fall early 2020. She is using walker and/or daughter stays very close to her during ambulation. 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 Subsequently, we thought this ascertainment bias combined with the protective effect on ADLs of care by her within . IHalphonso had then thought of Lewy body disease. She was quite young for Lewy body disease however. Additionally, there has been no significant emergence of motor parkinsonism. Her REM behavior disorder type symptoms are atypical in that they have responded to Seroquel. Given early age of onset, frontotemporal dementia, behavioral variant is most likely. The early involvement of both bladder and bowel incontinence supports this. With the incontinence and the orthostatic dizziness, as well as possible REM behavior sleep disorder, multisystems atrophy is also a possibility. It also tends to occur at an earlier age than other dementias. It does not typically have such prominent behavioral dysregulation, however. We have been wary of acetylcholinesterase inhibitor medication because of potential side effects of dizziness, context her orthostatic hypotension. In any case, frontotemporal dementia does not typically respond to acetylcholinesterase inhibitor medication. Memantine is not known to help for frontotemporal dementia. Her cognitive deficit does not seem moderate to severe so I have not suggested this. It remains a possibility in case the diagnosis is not frontotemporal dementia. PLAN Debo Krause June 01, 2024 FOR MEMORY: CONTINUE donepezil 5 mg. FOR PREVENTION OF HEADACHE: CONTINUE Qulipta (atogepant) 30mg tablets for 1 tablet once daily n morning. Qulipta, up to 60 mg has been approved until October 12, 2024 Possible side effects include nausea 5 to 9%, constipation 6%, fatigue 4 to 6%, decreased appetite 1 to 2%. Do not take Qulipta if you are taking verapamil. If side effects are mild, wait up to a week to see if your body gets used to the medication and the side effects go away. If side effects are not mild or do not go away after a week, stay on the medication if the side effects are very mild, otherwise go back to the lower dose or stop the medication. Do not drink large amounts of grapefruit while you are taking this medicine as this could make the medication too strong. A single cup of grapefruit juice is okay. Qulipta concentration in the bloodstream can in general be increased by strong CY inhibitors. If you start any new medications with another healthcare provider, please ask that healthcare provider if the new medication is a strong CY inhibitor. Such medications are not common. However, if it is, please contact me to discuss reduction of Qulipta dose. If the medication causes no significant side effects, and helps, stay on the dose at which it helps as long as you have medication for it from my samples TO HELP YOUR MOOD BEING DOWN AND CRYING, AND WAKING CRYING DURING THE NIGHT: And new 2022 episodes of afternoon screaming and hair pulling and abnormal biting movements in the night as well For episodes of behavior escalation in the afternoon reported 2022 CONTINUE quetiapine, 1 tablet at 2pm as needed and 3 tablets at bedtime June 01, 2024: rare 2pm dose. CONTINUE clonazepam 0.75 mg nightly. You will need to give her 1-1/2 of the 0.5 mg tablets every night. CONTINUE mirtazapine 30 mg, 1 tablet 1 hour before bedtime. Prescription renewed. CONTINUE melatonin 3 mg tablets, 3 tablets 2 hours before bedtime. Patient notes that she is sleeping well and has excessive sleepiness in the day, you may try reducing this to tablets 2 hours before bedtime Follow up in [address] 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 Migraine headache, responds to CGRP inhibitors --June 01, 2024 dizziness better with donepezil reduction to 5 mg; heavy tongue and tiredness in afternoon 2-3 times per week. --December 09, 2024 dizziness with bending down; afternoon anxiety -> newly taking as needed 2 PM quetiapine regularly; continuing occasional drowsiness and afternoon that does not bother her; continuing occasional mumbling. >>>>>>>>>>>>December 09, 2024 She feels quetiapine situation is good so I will not prescribe an extra as needed pill. Other medications are good from patient's caregivers perspective. The only issue is her 2 weeks of daily lightheadedness with bending down. If this is not infection (which I defer to PCP) then perhaps it is again (following May 2024 situation) medication effect. Medications reviewed: From neurology: Qulipta, donepezil 5 mg, clonazepam, melatonin, quetiapine and mirtazapine as detailed below. Otherwise: Hydroxyzine for itching, fluoxetine, gabapentin, insulin, Lantus, bowel regimen, levothyroxine, Myrbetriq, rosuvastatin Among medications from neurology, donepezil reduction previously has helped with some of her dizziness. We discussed that further reduction could help but could hurt her cognition. Her daughter declines this path. Clonazepam could cause dizziness but she definitively needs this to get through the night. Given that her sugar is normal when she is feeling this dizziness, her dizziness might relate to not neurology medications gabapentin. If she definitively needs that, I note that historically she has taken fludrocortisone through 2020, midodrine through mid 2023, the latter prescribed by Radha Leija. If the dizziness becomes more worrisome for a fall or too bothersome, I would defer to primary care or that provider or to primary care for reconsideration of retrying such a medication. >>>>>>>>>>>>June 01, 2024 I suggest discontinuing reducing melatonin from 7.5 mg nightly down to 6 mg nightly to help the apparent drowsiness starting around noon time 2 or three times per week. Hopefully REM behavior sleep disorder and sleep disruption will not emerge. We will monitor. >>>>>>>>>>>>February 10, 2024: She reports excellent benefit from Qulipta 30 mg daily for migraine prevention. It has been approved until October 12, 2024 and up to 60 mg. I will not make an adjustment today as Qulipta 30 mg is helping without side effect, but may be a future option if worsening migraines Amerge. Per her daughter, behavioral issues are reasonably well-controlled on mirtazapine 30 mg at night, quetiapine and 75 mg nightly and 25 mg as needed, clonazepam 0.75 mg nightly and melatonin 9 mg nightly (remotely, we have discussed reducing this but have not thus far). She does continue with some dizziness. As we are not making any changes today and that donepezil can contribute to dizziness, we will plan to reduce it to 5 mg. We discussed follow-up options, last time she was doing this well, we opted for 6-month follow-up but issues emerged and she was not seen for 7 or 8 months and so more recently we have returned to every 2-month follow-ups. As things are now improved again, I suggest 3 to 4-month follow-up, she and her daughter agree MEDICATION REVIEW February 10 2024 Neurology: -December 17, 2023: Qulipta 30 mg daily started -Office trial of Emgality with loading dose February 05, 2022, discontinued November 05, 2023 in context of reported swelling --August 14, 2022 review of prescriptions: I renewed her donepezil 10mg December 2021. This was previously prescribed by her PCP. Mirtazapine 30 mg up from 22.5 mg September 11, from15 mg since July 11 to 08/09), Aimovig 70 mg/mL increased to 140 mg/mL October 2021, only received 1 dose and was given the 70 mg/mL dose per her daughter, last filled in October per the pharmacy (Changed from [facility] due to insurance barriers in spring 2020); quetiapine 50 mg nightly (reduced from 75 mg nightly due to dizziness Summer / fall 2020, additional 25 mg scribed as needed, started taking 3 tablets nightly June 2022, clonazepam 1 mg nightly reduced to 0.5mg April 2022, increased to 0.75 mg June 2022, melatonin 9mg nightly, all from us. 08/14/22 Trulicity weekly has been added Other meds from med review appointment on 08/09/2021 Meds as per 08/09/21 pill count review, Aspirin, Biotin, vitamin D, Docusate, Donepezil 10 mg, 1 tab at bedtime, Dorzolamide eyedrops, [facility] fiber, [facility] anti-gas 180 mg soft gel is prescribed as 1 tab 4 times daily but only takes it twice daily, Fluoxetine 20 mg capsule, 1 capsule twice daily, Fluticasone nasal spray, Humalog, Hydroxyzine 25 1 tablet by mouth 3 times daily as needed for itching: Usually takes it daily, Levothyroxine, Magnesium, Ondansetron 4 mg disintegrating tablets -take sometimes, Oxybutynin ER 10 mg tablet, Pantoprazole 40 mg tab daily Trulance 3 mg tablet 1 tab daily (does not have here, rarely uses) Xiidra eyedrops HEADACHE February 10, 2024: Excellent benefit from Qulipta 30 mg daily without side effect December 17, 2023: Interval development of left-sided headache off Emgality, also context of dermatologic scalp on the left November 19, 2023: No significant worsening of headaches 13 days overdue for Emgality, about 3/week, possibly improved from prior November 05, 2023: Developed transient injection site reaction characterized by swelling without induration or edema but at least 1 episode of swollen lip noted by daughter, Emgality discontinued. Has worsening of headache reported after she gets mad . July 03, 2023: Getting 10-minute episodes of migraine every morning and every afternoon on Emgality 120 mg/mL monthly autoinjector, PA expires October 12, 2023 December 03, 2022: Continued excellent effect from Emgality. As noted below, prior authorization appears to have , she has received October and November prescriptions. Will renew today and we will check on the prior authorization July 09, 2022: Continued effectiveness of Emgality, prior authorization to 10/12/2022 02/05/2022: Loading dose of Emgality 120 mg/mL autoinjector x2 in the office Previous constipation, breakthrough migraines and unclear displacement of Aimovig 70 mg increased to 140 mg and reverted to 70 mg/mL winter/spring 2021 ORTHOSTATIC DIZZINESS February 10, 2024: Donepezil reduced from 10 mg to 5 mg December 17, 2023: Ongoing dizziness, elected to hold off on reducing or discontinuing donepezil in favor of treating migraine. Noted midodrine has been represcribed. Daughter reports she is not taking it July 03, 2023: Recurrent dizziness over the last 2 months. Suggested discussing with PCP and cardiology. May reduce Seroquel though suspect this is less likely the issue as she has now been taking up to 3 most nights for about a year August 14, 2022: She has not had any dizziness associated with increasing Seroquel from 50 mg nightly to 75 mg nightly since late summer / early 2021 AGITATION AND WAKING February 10, 2024, has not required the afternoon as needed quetiapine recently December 17, 2023: Improved late afternoon behavioral issues with 25 mg quetiapine shifted to 2 PM instead of 4pm and continued 75 mg at night. November 19, 2023: Has tried Seroquel 25 mg around 4 in the afternoon without side effect, has not tried it before the behavioral issues occur in the mid afternoon November 05, 2023: Increasing afternoon behavioral issues. Has not yet tried early to mid afternoon quetiapine August 05, 2023: Now having episodes of behavioral change in the afternoon 2-3 times per week and ongoing difficulty with falling asleep and sometimes return of behavioral issues on clonazepam 0.75 mg nightly, mirtazapine 30 mg nightly and quetiapine 75 mg nightly melatonin 9 mg nightly July 03, 2023: Worsening in the last week and a half. No changes to medications December 03, 2022: Continues to do well with clonazepam 0.75 mg nightly, mirtazapine 30 mg nightly and quetiapine 75 mg nightly. The exception is when Emgality is wearing off at the end of the month. There is also some daytime sleepiness. August 14, 2022: Improved since increasing clonazepam from 0.5 mg nightly to 0.75 mg nightly July 09, 2022: Worsening in June. Clonazepam reduced from 1 mg to 0.5 mg in April. Quetiapine increased from two 25 mg tablets to three 25 mg tablets at night and June. It appears that she has done well on 0.75 mg of clonazepam in the past. We will increase it. April 30 2022. Continues to do well on quetiapine 25 mg, 2-3 tabs at night. She continues melatonin up to 3 mg 3 times daily. Sleep has been doing well with the single issue of going off of clonazepam 1 mg over the last week. We discussed that her intention was to reduce this when she was doing well and so we will resume it at half the dose of 0.5 mg for 1 month with the option to potentially continue it for second month versus discontinue versus 0.25 mg (/2 a 0.5tab) if she is not tolerating discontinuation. 01/01/22 she has been awakening every 3-4 nights and plays with her dolls but overall is improved. We discussed decreasing clonazepam at her last visit but we did not discuss this today. She has not implemented the changes for headache management that we discussed last month. PREVIOUSLY: She has some ongoing agitation and awakening with night terrors described by her daughter Mary. There are some moments of self soothing described by Ms. Dykes herself. Episodes of, pulling her hair have improved with increase of melatonin from 6 mg to 9 mg. Previous increase of Seroquel past 75 mg hasn t helped and has caused somnolence. Previous increase of clonazepam past 0.75 mg hasn t helped. In the context of placing this symptom in the category of of REM behavior sleep disorder, there has been response most recently with melatonin 6 mg added on top of the Seroquel and clonazepam which helped previously. We will try melatonin 9 mg. -When there is no other medication change at a visit, we will consider reducing clonazepam back down to 0.75 mg, the highest dose at which there was a titration benefit for nighttime agitation and acting out dreams. MOOD November 05, 2023: Increasingly having behavioral issues in the afternoon around 2 to 3 PM since 2022. See agitation/behavior below December 03, 2022: Continues to do well August 14 2022: Currently doing well. Less waking and crying. July 09, 2022, has been waking up crying more, afternoon behavior changes -There was an issue with mirtazapine prescription at one-point, this has been resolved 01/01/22: Mood appears to be improved. She is sleeping better most of the time although requires prompts to go to bed. Constipation does seem to contribute to nocturnal awakening. She is no longer pulling at her hair. Previously Mood continues to be a concern and descriptors of crying at night and difficulty sleeping 3 to 4 days/week remain a concern however her city plant supervisor Mary is noticed an emphatic marked improvement on mirtazapine 30 mg compared to August even if the descriptors of the behaviors remain similar. We have had some concern that escalating the mirtazapine may not make much difference in the nocturnal awakening and could have a paradoxical effect, however, it is made enough of a difference during the sleeping nights that her city plant supervisor and her are able to sleep at least half the week. We will make no further mirtazapine adjustments today. We will remember to consider cutting down on the melatonin if it works or the patient becomes too sleepy. Quetiapine was perhaps better at 75 mg than its current 50 mg dose for helping behavioral dysregulation. It was cut down to 50 mg because of dizziness. For this reason, her daughter, Mary has not given her an additional 25 mg at night and she is concerned about the potentially escalating the dose again. Cardiology has just decreased fludrocortisone and midodrine on August 08, right after her follow-up with [facility] on that day. Perhaps an increase of quetiapine will help without the side effect of dizziness at this point, therefore however her daughter Mary is very reluctant to increase the quetiapine. We have discussed this at several visits and did not readdress this today except to confirm that she continues 50 mg at night. BLADDER July 03, 2023: Using depends, continues with urology, may start Botox treatment PREVIOUSLY: Oxybutynin, which has been started by urology per chart over summer 2020, may worsen mental status and cause confusion in the elderly with dementia. Other directions of intervention, if possible, would be more optimal. We had discussed Myrbetriq trial but she has already tried this as per updated urology notes. She continues the oxybutynin presently. We had discussed the possibility of discontinuation if her urologist agreed if the patient could be convinced to make do just with a pull-up/diaper. We will continue to defer to primary care or urology on this issue. It was noted by urology that Myrbetriq was not effective. 01/01/22 she still has some dizziness with changes of position PREVIOUSLY: She has had further episodes causing her to fall early in 2020 although her daughter has caught her. We review our discussion from January 2020 on this. She was on midodrine and fludrocortisone up through 08/08/2021 and saw her pattern keeper after her appointment with us 08/08. Midodrine and fludrocortisone have now been discontinued. GAIT July 03, 2023: She has not had falls but generally does not use her quad cane when she is at home and only when she is out. Again recommended using walker more, particularly given recent increased in venous lorenzo 2021: She does have a walker at home but primarily continues with her quad cane. Suggest that she begin using the walker more. 02/05/22: She primarily ambulates with her quad cane. PREVIOUSLY: Also, gait imbalance associated at least partially with worsening of chronic orthostatic dizziness, with fall early 2020. She is using walker and/or daughter stays very close to her during ambulation. 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 Subsequently, we thought this ascertainment bias combined with the protective effect on ADLs of care by her within . IHalphonso had then thought of Lewy body disease. She was quite young for Lewy body disease however. Additionally, there has been no significant emergence of motor parkinsonism. Her REM behavior disorder type symptoms are atypical in that they have responded to Seroquel. Given early age of onset, frontotemporal dementia, behavioral variant is most likely. The early involvement of both bladder and bowel incontinence supports this. With the incontinence and the orthostatic dizziness, as well as possible REM behavior sleep disorder, multisystems atrophy is also a possibility. It also tends to occur at an earlier age than other dementias. It does not typically have such prominent behavioral dysregulation, however. We have been wary of acetylcholinesterase inhibitor medication because of potential side effects of dizziness, context her orthostatic hypotension. In any case, frontotemporal dementia does not typically respond to acetylcholinesterase inhibitor medication. Memantine is not known to help for frontotemporal dementia. Her cognitive deficit does not seem moderate to severe so I have not suggested this. It remains a possibility in case the diagnosis is not frontotemporal dementia. PLAN Debo Krause December 09, 2024 FOR MEMORY: CONTINUE donepezil 5 mg. FOR PREVENTION OF HEADACHE: CONTINUE Qulipta (atogepant) 30mg tablets for 1 tablet once daily n morning. Qulipta, up to 60 mg has been approved until October 12, 2024 Possible side effects include nausea 5 to 9%, constipation 6%, fatigue 4 to 6%, decreased appetite 1 to 2%. Do not take Qulipta if you are taking verapamil. If side effects are mild, wait up to a week to see if your body gets used to the medication and the side effects go away. If side effects are not mild or do not go away after a week, stay on the medication if the side effects are very mild, otherwise go back to the lower dose or stop the medication. Do not drink large amounts of grapefruit while you are taking this medicine as this could make the medication too strong. A single cup of grapefruit juice is okay. Qulipta concentration in the bloodstream can in general be increased by strong CY inhibitors. If you start any new medications with another healthcare provider, please ask that healthcare provider if the new medication is a strong CY inhibitor. Such medications are not common. However, if it is, please contact me to discuss reduction of Qulipta dose. If the medication causes no significant side effects, and helps, stay on the dose at which it helps as long as you have medication for it from my samples TO HELP YOUR MOOD BEING DOWN AND CRYING, AND WAKING CRYING DURING THE NIGHT: And new 2022 episodes of afternoon screaming and hair pulling and abnormal biting movements in the night as well For episodes of behavior escalation in the afternoon reported 2022 CONTINUE quetiapine, 1 tablet at 2pm as needed and 3 tablets at bedtime June 01, 2024: rare 2pm dose. CONTINUE clonazepam 0.75 mg nightly. You will need to give her 1-1/2 of the 0.5 mg tablets every night. CONTINUE mirtazapine 30 mg, 1 tablet 1 hour before bedtime. Prescription renewed. CONTINUE melatonin 3 mg tablets, 3 tablets 2 hours before bedtime. Patient notes that she is sleeping well and has excessive sleepiness in the day, you may try reducing this to tablets 2 hours before bedtime Follow up in [address] 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 Migraine headache, responds to CGRP inhibitors --June 01, 2024 dizziness better with donepezil reduction to 5 mg; heavy tongue and tiredness in afternoon 2-3 times per week. --December 09, 2024 dizziness with bending down; afternoon anxiety -> newly taking as needed 2 PM quetiapine regularly; continuing occasional drowsiness and afternoon that does not bother her; continuing occasional mumbling. --May 05, 2025 doing well with headaches, mood and sleep with the help of medications that I manage, as discussed in HPI and detailed in prescriptions below. Her sisters are trying to take her mother and put her in a group home. >>>>>>>>>>>>May 05, 2025 I will continue medications that I prescribe unchanged. I will write letter as discussed in HPI, in support of her continuing care for her mother and for her mother continuing living with her. >>>>>>>>>>>>December 09, 2024 She feels quetiapine situation is good so I will not prescribe an extra as needed pill. Other medications are good from patient's caregivers perspective. The only issue is her 2 weeks of daily lightheadedness with bending down. If this is not infection (which I defer to PCP) then perhaps it is again (following May 2024 situation) medication effect. Medications reviewed: From neurology: Qulipta, donepezil 5 mg, clonazepam, melatonin, quetiapine and mirtazapine as detailed below. Otherwise: Hydroxyzine for itching, fluoxetine, gabapentin, insulin, Lantus, bowel regimen, levothyroxine, Myrbetriq, rosuvastatin Among medications from neurology, donepezil reduction previously has helped with some of her dizziness. We discussed that further reduction could help but could hurt her cognition. Her daughter declines this path. Clonazepam could cause dizziness but she definitively needs this to get through the night. Given that her sugar is normal when she is feeling this dizziness, her dizziness might relate to not neurology medications gabapentin. If she definitively needs that, I note that historically she has taken fludrocortisone through 2020, midodrine through mid 2023, the latter prescribed by Radha Leija. If the dizziness becomes more worrisome for a fall or too bothersome, I would defer to primary care or that provider or to primary care for reconsideration of retrying such a medication. >>>>>>>>>>>>June 01, 2024 I suggest discontinuing reducing melatonin from 7.5 mg nightly down to 6 mg nightly to help the apparent drowsiness starting around noon time 2 or three times per week. Hopefully REM behavior sleep disorder and sleep disruption will not emerge. We will monitor. >>>>>>>>>>>>February 10, 2024: She reports excellent benefit from Qulipta 30 mg daily for migraine prevention. It has been approved until October 12, 2024 and up to 60 mg. I will not make an adjustment today as Qulipta 30 mg is helping without side effect, but may be a future option if worsening migraines Amerge. Per her daughter, behavioral issues are reasonably well-controlled on mirtazapine 30 mg at night, quetiapine and 75 mg nightly and 25 mg as needed, clonazepam 0.75 mg nightly and melatonin 9 mg nightly (remotely, we have discussed reducing this but have not thus far). She does continue with some dizziness. As we are not making any changes today and that donepezil can contribute to dizziness, we will plan to reduce it to 5 mg. We discussed follow-up options, last time she was doing this well, we opted for 6-month follow-up but issues emerged and she was not seen for 7 or 8 months and so more recently we have returned to every 2-month follow-ups. As things are now improved again, I suggest 3 to 4-month follow-up, she and her daughter agree MEDICATION REVIEW February 10 2024 Neurology: -December 17, 2023: Qulipta 30 mg daily started -Office trial of Emgality with loading dose February 05, 2022, discontinued November 05, 2023 in context of reported swelling --August 14, 2022 review of prescriptions: I renewed her donepezil 10mg December 2021. This was previously prescribed by her PCP. Mirtazapine 30 mg up from 22.5 mg September 11, from15 mg since July 11 to 08/09), Aimovig 70 mg/mL increased to 140 mg/mL October 2021, only received 1 dose and was given the 70 mg/mL dose per her daughter, last filled in October per the pharmacy (Changed from [facility] due to insurance barriers in spring 2020); quetiapine 50 mg nightly (reduced from 75 mg nightly due to dizziness Summer / fall 2020, additional 25 mg scribed as needed, started taking 3 tablets nightly June 2022, clonazepam 1 mg nightly reduced to 0.5mg April 2022, increased to 0.75 mg June 2022, melatonin 9mg nightly, all from us. 08/14/22 Marvin weekly has been added Other meds from med review appointment on 08/09/2021 Meds as per 08/09/21 pill count review, Aspirin, Biotin, vitamin D, Docusate, Donepezil 10 mg, 1 tab at bedtime, Dorzolamide eyedrops, [facility] fiber, [facility] anti-gas 180 mg soft gel is prescribed as 1 tab 4 times daily but only takes it twice daily, Fluoxetine 20 mg capsule, 1 capsule twice daily, Fluticasone nasal spray, Humalog, Hydroxyzine 25 1 tablet by mouth 3 times daily as needed for itching: Usually takes it daily, Levothyroxine, Magnesium, Ondansetron 4 mg disintegrating tablets -take sometimes, Oxybutynin ER 10 mg tablet, Pantoprazole 40 mg tab daily Trulance 3 mg tablet 1 tab daily (does not have here, rarely uses) Xiidra eyedrops >>>>>>>>>>>>>>>>>>>>>> >>>>>>>>>>>>>>>>>>>>>> >> >>>>>>>>>>>>>>>>>>>>>> >>>>>>>>>>>>>>>>>>>>>> >>>> WILLOW Oquendo) May 05, 2025 >>>>>>>>>>>>>>>>>>>>>> >>>>>>>>>>>>>>>>>>>>>> >> >>>>>>>>>>>>>>>>>>>>>> >>>>>>>>>>>>>>>>>>>>>> >> >>>>>>>>>>>>>>>>FOR MEMORY: CONTINUE donepezil 5 mg. >>>>>>>>>>>>>>>>FOR PREVENTION OF HEADACHE: CONTINUE Qulipta (atogepant) 30mg tablets for 1 tablet once daily n morning. Do not take Qulipta if you are taking verapamil. >>>>>>>>>>>>>>>> TO HELP YOUR MOOD BEING DOWN AND CRYING, AND WAKING CRYING DURING THE NIGHT: And new 2022 episodes of afternoon screaming and hair pulling and abnormal biting movements in the night as well For episodes of behavior escalation in the afternoon reported 2022 : CONTINUE quetiapine, 25 mg tab, 1 tablet at 2pm as needed and 3 tablets at bedtime June 01, 2024: (Beronica'25 <50% of time: 2pm dose.) CONTINUE clonazepam 0.75 mg nightly. You will need to give her 1-1/2 of the 0.5 mg tablets every night. CONTINUE mirtazapine 30 mg, 1 tablet 1 hour before bedtime. Prescription renewed. CONTINUE melatonin 3 mg tablets, 3 tablets 2 hours before bedtime. Patient notes that she is sleeping well and has excessive sleepiness in the day, you may try reducing this to tablets 2 hours before bedtime Follow up in 8 months radha Not available 05/05/2025 14:51:05 Plan of Treatment Reminders Order Date Submit Date Provider Last Modified By Organization Details Last Modified Time Details Appointments FOLLOW UP EXT 2025 12:30P M Fox Molina MD PhD Not available Not available Not available Lab None recorded. Referral None recorded. Procedures None recorded. Surgeries None recorded. Imaging None recorded. Medication Orders melatonin [address] [id number] [address] [place], [id number], 05/05/2025 14:31:35 mirtazapi ne 30 mg tablet [address] [id number] [address] [place], [address], 05/05/2025 14:31:35 quetiapin e 25 mg tablet [address] [id number] [address] [place], [id number], 05/05/2025 14:31:35 donepezil 5 mg tablet 2024 025 [id number], [address] [place], [id number], 05/05/2025 14:31:35 Qulipta 30 mg tablet 2024 025 [id number], [address] [place], [id number], 05/05/2025 14:31:35 melatonin 3 mg tablet 2024 025 [id number], [address] [place], [address], 12/09/2024 11:22:17 mirtazapi ne 30 mg tablet 2024 025 [id number], [address] [place], [address], 12/09/2024 11:22:17 quetiapin e 25 mg tablet 2024 025 [facility], [address] [place], [address], 12/09/2024 11:22:18 donepezil 5 mg tablet 2024 025 [id number], [address] [place], [address], 12/09/2024 11:22:16 Qulipta 30 mg tablet 2024 025 [id number], [address] [place], [address], 12/09/2024 11:22:16 melatonin 3 mg tablet 2023 024 [facility], [address] [place], [address], 06/01/2024 13:45:16 mirtazapi ne 30 mg tablet 2023 024 [id number], [address] [place], [address], 06/01/2024 13:45:15 quetiapin e 25 mg tablet 2023 024 [facility], [address] [place], [address], 06/01/2024 13:45:22 donepezil 5 [address] [id number] [address] [place], [address], 06/01/2024 13:45:16 Qulipta 30 [address] [facility] [address] [place], [address], 06/01/2024 13:45:16 donepezil 5 mg tablet [address] [id number] [address] [place], [address], 02/10/2024 12:38:24 clonazepa m 0.5 mg tablet [address] [id number] [address] [place], [id number], 02/10/2024 12:38:25 melatonin 3 mg tablet [address] [id number] [address] [place], [address], 02/10/2024 12:38:23 mirtazapi ne 30 mg tablet [address] [facility] [address] [place], [address], 02/10/2024 12:38:23 quetiapin e 25 mg tablet 2023 024 [facility], [address] [place], [address], 02/10/2024 12:38:22 Qulipta 30 mg tablet 2023 024 [facility], [address] [place], [address], 02/10/2024 12:38:23 Qulipta 30 mg tablet 2023 024 [id number], [address] [facility], [place], [address], 12/17/2023 12:06:35 Patient TargetsNo targets recorded. Patient Instructions Encounter Date Encounter Id Patient Instructions Last Modified By Organization Details Last Modified Time 12/17/2023 [id number] PREVIOUS MEDICAT ION Emgality 120 mg/mL monthly autoinjector loading dose February 05, 2022, discontinued November 05, 2023 in context of reported transient swelling at the injection site since July or August 2023 and report from daughter of swelling of the lip. Aimovig 70 mg/mL -breakthrough migraines and constipation, trial of 140 mg/mL was reversed to 70 mg/mL and missed injections October through December 2020 with worsening migraines Midodrine fludrocortisone discontinued by cardiology 08/08/21, also Myrbetriq discontinued as per June 2021 urology note Also not currently taking as per 08/09/2021 pill count visit:benzonatate capsule, hydrocortisone 2.5% topical cream, nitrofurantoin, tolterodine, tramadol. Amitriptyline, discontinued by PCP per May 2021 follow-up, not correlating with any symptomatic change, not with depression in particular Klonopin: Initial benefit up to 0.75 mg for fighting movements/hair pulling during sleep, no benefit upon final increase April 24, 2017 to 1 mg, but no side effects so keeping that dose. 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 Risperidone, insufficient for behavioral dyscontrol, which responded to Seroquel 50 mg in March 2015 Uro: We are in receipt of her most recent visit with Dr. Trip Goetz, her urologist, dated 07/09/2021. It is noted that she had started oxybutynin in May she had failed trials of Myrbetriq and tolterodine. It was further noted that gemtesa (vibegron) is not approved. It was noted that she has had significantly less accidents in the day, less frequency and dry overnight. MEDICATIONS UPDATED WITH PILL COUNT ON 08/09/2021 Aimovig subcutaneous autoinjector once monthly Aspirin 81 mg delayed release once daily Biotin 1000 mcg with keratin Bisacodyl 5 mg release 2 tabs at bed time Colecalciferol (vitamin D3) 125 mcg (5000 units) per capsule 1 capsule daily Docusate sodium 100 mg capsule 2 capsules twice daily Donepezil 10 mg, 1 tab at bedtime Dorzolamide 22.3 mg t imolol 6.8 mg/mL eyedrops, 1 drop in both eyes twice daily CVS fiber 500 mg, 2 tabs daily as needed for constipation CVS anti-gas 180 mg soft gel is prescribed as 1 tab 4 times daily but only takes it twice daily. Fluoxetine 20 mg capsule, 1 capsule twice daily Fluticasone propionate 50 mcg/actuation nasal spray, suspension, 2 sprays in each nostril once daily as needed congestion Humalog U 1 00 insulin 100 units/mL subcutaneous solution, inject 07 6 units subcutaneously once daily Hydroxyzine 25 mg prescribed as 1 tablet by mouth 3 times daily as needed for itching: Usually takes it daily. Levothyroxine 125 mcg tablet once daily in the morning Magnesium oxide 400 mg daily Melatonin 3 mg tablet as Rx'd currently at 2 tablets per her bottle but is taking 3 tablets as advised by us previously. Mirtazapine 15 mg tablet once daily (increased to 22.5 mg on 08/09/2021 and further increased 08/25/2021 to 30 mg daily) Nystatin 100,000 unit/g topical cream Ondansetron 4 mg disintegrating tablets -take sometimes Oxybutynin chloride ER 10 mg tablet extended release 1 tab daily Pantoprazole 40 mg tab daily Quetiapine 25 mg tablet 1 to 3 tablets by mouth every day at bedtime, 2 tabs nightly, (we remember: Dizziness although perhaps better benefit at 3 tablets nightly). Trulance 3 mg tablet 1 tab daily (does not have here, rarely uses) Xiidra 5% eyedrops in a drop Pat, 1 drop in both eyes twice daily FUTURE DISCUSSIONS In addition to above, we may consider reduction of fluoxetine as mirtazapine is increased PREVIOUS DISCUSSIONS: November 19 2023: She is nearly 2 weeks past due for Emgality and headaches seem to be slightly better than they were previously. We decided to hold off on introducing another preventative for now. Her Daughter says that her maintenance trainer feels that she may have skin cancer, she wonders if this could contribute to the headaches. I think it is unlikely. It is not impossible and I told this to her daughter but out of the different sites where she might have a cancer it is less likely. Her daughter has not shared this information with her mother. In any case, I suggested to the daughter that she not worry too much about whether the skin cancer is in her brain until they have more information from maintenance trainer. -It is not entirely clear to me if she has tried additional Seroquel, it sounds like the late afternoon Seroquel but given after she begins to have the agitations. I suggested that she try it before hand. She does have sleepiness at times but it tends to be in the evening falling asleep at the TV and then declining to go to bed. She does not have drowsiness in the late afternoon after the afternoon Seroquel. I told her daughter that the fourth 1 is completely as needed and she can try it in half pills first to see if she tolerates. -As we were wrapping up with the information above, her daughter mentions that her mother has been getting dizziness again. We reflected that she had dizziness in the past that her daughter had attributed to Seroquel/quetiapine and then later tolerated higher doses and that we also had in mind to decrease donepezil which could contribute to some dizziness and orthostasis. Her daughter says it occurs when he bends over. She is We decide on another short-term follow-up in 1 months to see if a trial of early to mid afternoon quetiapine helps with late afternoon agitation. I have asked her daughter to monitor for dizziness and for headache and we may address 1 of these issues at follow-up REVIEW of November 05, 2023: Migraines have been reasonably well-controlled on Emgality 120 mg per mL autoinjector however, at the end of our visit today, her daughter describes swelling of the arm after the injection and oral swelling at some point at least once in the interval. Therefore, due to concern for allergic reaction, I have advised her and her daughter to stop Emgality. Next injection due tomorrow. -In the meanwhile, there was an escalation of afternoon behavioral issues characterized by screaming at family members, and also exacerbating headaches. Her daughter has not initiated afternoon quetiapine/Seroquel which we discussed previously. We discussed risk versus benefits of additional Seroquel in this context (including risk of ) versus quality of life if it helps with afternoon behavioral outbursts. Her daughter understands and would like to go ahead with trial of afternoon Seroquel as previously planned. She will begin with half a tablet of Seroquel, 12.5 mg at 2 in the afternoon and if no side effect and no benefit she will try it a bit earlier at 1 PM. If no side effect, and no benefit, then trial of a full 25 mg after 2 to 3 days. -I have asked her daughter to monitor for daytime napping, in particular if this causes increased wakefulness at night. -We will plan short-term follow-up in 2 weeks at which time (depending on how the additional Seroquel goes) we will discuss alternatives for migraine prevention REVIEW of August 05, 2023, emergence of afternoon behavioral issues, quetiapine discussion: Primary issue noted by her daughter is increased behavioral issues now in the afternoon 2-3 times per week and some increased nighttime with some screaming and hair pulling both in the late afternoon and at night with some difficulty falling asleep. We discussed adding an additional 25 mg of quetiapine as needed. This will be separate from the 3 that she is giving her in the evening. I told her (daughter) she should give it to her at the earliest onset of that afternoon behavioral issues and if she finds that it is consistent at a certain time of day in the afternoon to give it to her about an hour before hand. If she is excessively sleepy, she could try half a tablet. Alternatively, if the nocturnal issue is the primary problem, she could try the extra at night. We also discussed that quetiapine can make EKG changes that can lead to arrhythmia also with advancing progressive dementia, the benefits may outweigh the risk. I defer to her daughter and primary care whether to check an EKG. I changed the prescription and told her she may hold off on adding the extra as needed until she discusses it with primary care if she prefers. July 03, 2023: -Dizziness: She was having improving control winter 2022 and we agreed on a 6-month follow-up, the longest That we have and turned into 7 months. In the interim a number of issues have resurfaced including episodes of dizziness. Originally denies any positional change to this, however there has been additional discussion ofapositional component when Ms Lucius Davies shares some of the symptoms herself. I have asked her /her daughter to discuss the symptoms with primary care and cardiology. She has had orthostatic dizziness in the past. Past concern about increasing Seroquel from 50 mg nightly to 75 mg nightly but subsequently tolerated it. This could be further reduced if there is no other etiology of the orthostasis. -Gait: She has not had falls. I encouraged her to use a walker when she is outside of the house and a cane when she is inside of the house. -Headache: There has been some concurrent 10-minute episodes of headache. This does not seem to be the dominant issue. She continues Emgality 120 mg/mL monthly autoinjector, prior authorization expires October 12, 2023 -Agitation and waking: She has had worsening in the last week and a half. She continues mirtazapine 30 mg, melatonin 9 mg and 0.75 mg of clonazepam as well as quetiapine 25 mg, 1 to 3 tablets. We will not make changes today and if this is the dominant issue at follow-up we will focus on it -Bladder: She continues working with the urologist, she may begin Botox treatments -General discussion: We agree on renewing all of her medications today and making no changes and reverting to shorter interval follow-ups given multiple recent issues and when things are going well without any problem we will plan 90-day follow-ups rather than 6-month follow-ups. December 03, 2022: For the most part, she continues to do well on Emgality monthly autoinjector for migraines, clonazepam 0.75 mg at bedtime, quetiapine 75 mg at bedtime and mirtazapine 30 mg at bedtime for behavioral issues the addition of melatonin 9 mg at night for sleep. Her daughter has noted that the dreams seem to be more vivid when Emgality is wearing off. I do not know that there is a direct correlation although I wonder if she is having unreported migraines with a wearing off effect in the final week. She occasionally has some excessive daytime sleepiness. We decided not to make any changes in the exception her daughter may try giving her melatonin 6 mg instead of 9 mg if she is sleeping well through the night and has excessive daytime sleepiness (or alternatively to 25 mg tablets of quetiapine instead of 3) but I do not suggest this in the final week of Emgality wearing off he is probably having some difficulty with sleep by the description. We decided on a 6-month follow-up as she was also doing well at her last follow-up 3 months ago and no changes were made. August 14, 2022: Currently, she is doing well, sleeping is improved on clonazepam 0.75 mg, increased from 0.5 mg at her last visit. She continues Seroquel 75 mg nightly and mirtazapine 30 mg daily. Headaches are well controlled on Emgality. We will not make any changes today. July 09, 2022: Behavior and REM sleep disorder have worsened. This emerged about a month after reducing clonazepam to 1 mg nightly to 0.5 mg nightly. Her daughter is concerned that her dementia has worsened. Seroquel has been increased since her last visit from two 25 mg nightly to three 25 mg nightly now without side effect of dizziness but no improvement. Previously, clonazepam 0.75 mg helped and there is no improvement on 1 mg. We will increase current clonazepam from 0.5 mg to 0.75 mg. She has had some somnolence and possibly dizziness associated with Seroquel (may have also been related to her nonneurologic medications) but is now tolerating the 75 mg nightly. --March 05, 2022: Excellent effect with trial of Emgality for migraine. She has not experienced any side effects nor any constipation February 05, 2022 discussion --Office trial of Emgality sample with loading dose. --Daughter unable to find mirtazapine that pharmacy records as dispensed. Extra prescription sent to a different pharmacy to use [facility]. January 29, 2022 discussion Sleep was improved at her January 01, 2022 follow-up appointment on mirtazapine 30 mg, quetiapine 50 mg nightly 3 tablets of melatonin with some nocturnal awakening playing with her dolls but no longer pulling at her hair. She is also currently on clonazepam 1 mg every evening which we will consider reducing at a future visit. January 01, 2022 follow-up was notable for ongoing left-sided headaches and for constipation. -- Discrepancy of Aimovig dose --Severe constipation to see GI --Reviewed prior constipation on Ajovy PREVIOUS ISSUES: 09/11/21: Ongoing worsened mood with crying since June 2021 visits and wanting to sleep 3 or 4 days/week remains the central concern. Mirtazapine 22.5 mg dose has not made much of a difference and nocturnal awakening. She has had the ability to self soothe which patient herself describes. Her daughter Mary had noted a slight improvement on the 7.5 mg dose of mirtazapine which was started in Feb 28 2021 without significant improvement with recent dose adjustment and 7.5 mg increments. We cannot exclude a paradoxical reaction with current evidence of partial benefit at lower dose 7 .5 mg but worsening at 15 mg. There is no clear worsening at 22.5 mg and so we have opted for an increase to 30 mg but if no clear improvement then we will consider slow dose reductions back to 7.5 mg which was the last dose at which she had clear improvement. 2018: She has had confusion on the phone that made her anxious. This likely relates to worsening cognition expressive aphasia may emerge and it usually comes first over the telephone, later person to person. The daughter validates this, there has been a little of this talking between patient and daughter, but not nearly as much as on the telephone. I counseled her to have people she wants to talk with on the telephone come visit, if possible and to minimize telephone talking. Perhaps this is why these events are not an issue anymore. 2017: There was a nonspecific 15 minute episodes November 01, 2016 with right face droop and right chest pain. [facility] could find no stroke or heart attack evidence. She is on aspirin. I do not think further medication change or investigation is needed. Previous discussions from February 2016 or before: I explained that the problems on the telephone relate to reduced capability to communicate over the telephone, which is harder for people with dementia than talking [id number]. Previously: Management pathway for choosing Aimovig as headache medication: --There is contraindication of Topamax (age) and propranolol (hypotension issues) regimen and age. --Amitriptyline has been discontinued by primary care earlier in 2020 with no effect on headaches. There did not seem to be any correlation and time with her onset of depression, either. The 25 mg dose was too small to have any likely effect on mood in any case. BILLING: Discussion across issues of diagnoses and management and same day associated chart review and management greater than 50% greater than 45 minutes juana Not available 12/17/2023 17:41:49 02/10/2024 [id number] PREVIOUS MEDICAT ION Emgality 120 mg/mL monthly autoinjector loading dose February 05, 2022, discontinued November 05, 2023 in context of reported transient swelling at the injection site since July or August 2023 and report from daughter of swelling of the lip. Aimovig 70 mg/mL -breakthrough migraines and constipation, trial of 140 mg/mL was reversed to 70 mg/mL and missed injections October through December 2020 with worsening migraines Midodrine fludrocortisone discontinued by cardiology 08/08/21, also Myrbetriq discontinued as per June 2021 urology note Also not currently taking as per 08/09/2021 pill count visit:benzonatate capsule, hydrocortisone 2.5% topical cream, nitrofurantoin, tolterodine, tramadol. Amitriptyline, discontinued by PCP per May 2021 follow-up, not correlating with any symptomatic change, not with depression in particular Klonopin: Initial benefit up to 0.75 mg for fighting movements/hair pulling during sleep, no benefit upon final increase April 24, 2017 to 1 mg, but no side effects so keeping that dose. 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 Risperidone, insufficient for behavioral dyscontrol, which responded to Seroquel 50 mg in March 2015 Uro: We are in receipt of her most recent visit with Dr. Trip Goetz, her urologist, dated 07/09/2021. It is noted that she had started oxybutynin in May she had failed trials of Myrbetriq and tolterodine. It was further noted that gemtesa (vibegron) is not approved. It was noted that she has had significantly less accidents in the day, less frequency and dry overnight. MEDICATIONS UPDATED WITH PILL COUNT ON 08/09/2021 Aimovig subcutaneous autoinjector once monthly Aspirin 81 mg delayed release once daily Biotin 1000 mcg with keratin Bisacodyl 5 mg release 2 tabs at bed time Colecalciferol (vitamin D3) 125 mcg (5000 units) per capsule 1 capsule daily Docusate sodium 100 mg capsule 2 capsules twice daily Donepezil 10 mg, 1 tab at bedtime Dorzolamide 22.3 mg t imolol 6.8 mg/mL eyedrops, 1 drop in both eyes twice daily CVS fiber 500 mg, 2 tabs daily as needed for constipation CVS anti-gas 180 mg soft gel is prescribed as 1 tab 4 times daily but only takes it twice daily. Fluoxetine 20 mg capsule, 1 capsule twice daily Fluticasone propionate 50 mcg/actuation nasal spray, suspension, 2 sprays in each nostril once daily as needed congestion Humalog U 1 00 insulin 100 units/mL subcutaneous solution, inject 07 6 units subcutaneously once daily Hydroxyzine 25 mg prescribed as 1 tablet by mouth 3 times daily as needed for itching: Usually takes it daily. Levothyroxine 125 mcg tablet once daily in the morning Magnesium oxide 400 mg daily Melatonin 3 mg tablet as Rx'd currently at 2 tablets per her bottle but is taking 3 tablets as advised by us previously. Mirtazapine 15 mg tablet once daily (increased to 22.5 mg on 08/09/2021 and further increased 08/25/2021 to 30 mg daily) Nystatin 100,000 unit/g topical cream Ondansetron 4 mg disintegrating tablets -take sometimes Oxybutynin chloride ER 10 mg tablet extended release 1 tab daily Pantoprazole 40 mg tab daily Quetiapine 25 mg tablet 1 to 3 tablets by mouth every day at bedtime, 2 tabs nightly, (we remember: Dizziness although perhaps better benefit at 3 tablets nightly). Trulance 3 mg tablet 1 tab daily (does not have here, rarely uses) Xiidra 5% eyedrops in a drop Pat, 1 drop in both eyes twice daily FUTURE DISCUSSIONS In addition to above, we may consider reduction of fluoxetine as mirtazapine is increased PREVIOUS DISCUSSIONS: December 17, 2023: Headaches have now reemerged after stopping Emgality concerns for an allergic reaction. It is likely that she still had some residual effect when I last saw her on November 19. She is having increasing dizziness characterized by bending, likely related to her prior history of orthostatic hypotension. We discussed decreasing or stopping donepezil which may be contributing. I offered to either treat the migraine or decrease donepezil which may be contributing to orthostatic hypotension. She would like to do both. I offer to make 1 change. Her daughter suggests treating the headache. In the context of review of prescribed medications (in the EMR) here is that midodrine has been resumed at some point with a 90-day prescription as recently as September 2023. (Previously off of it in 2020 and appears to have been resumed in June 2023). Her daughter says that she is not taking this and that it was prescribed by her urologist. Aside from I defer to primary care to primary care, cardiology or the treating prescriber regarding ongoing midodrine and management of orthostatic dizziness. I offered a trial of Qulipta given possible allergic reaction to Emgality, prior constipation on Aimovig. We went over potential side effects which do include some nausea and constipation. We will begin at a moderate dose of 30 mg daily and we will make a decision at follow-up whether to increase it. If she has significant GI side effects, I will consider Nurtec but held off for now as her daughter is already burdened with administration of her multiple medications and adding every other day dosing may be a challenge. She elected to move forward. Prescription was sent to her pharmacy and within moments her pharmacy requested prior authorization from her office: She has responded positively to other CGRP inhibitors, I think it is reasonable to go ahead with prior authorization today. 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 We will make a decision about increasing to the 60 mg dose sometime after the biopsy if she is tolerating it and has insufficient benefit. Behavior in the late afternoon seems to be improved by taking quetiapine 25 mg at about 2 PM which is about 2 hours before the afternoon behavioral issues were emerging. Per her daughter, she is tolerating this without inducing late afternoon napping. At the end of our visit today, her daughter asks her daughter asks for prescription for nausea and dizziness for her mother. She has been getting nauseous with meals although it does not seem to be associated with headaches. Therefore, I defer to primary care regarding management of nausea (or her college professor). November 19 2023: She is nearly 2 weeks past due for Emgality and headaches seem to be slightly better than they were previously. We decided to hold off on introducing another preventative for now. Her Daughter says that her maintenance trainer feels that she may have skin cancer, she wonders if this could contribute to the headaches. I think it is unlikely. It is not impossible and I told this to her daughter but out of the different sites where she might have a cancer it is less likely. Her daughter has not shared this information with her mother. In any case, I suggested to the daughter that she not worry too much about whether the skin cancer is in her brain until they have more information from maintenance trainer. -It is not entirely clear to me if she has tried additional Seroquel, it sounds like the late afternoon Seroquel but given after she begins to have the agitations. I suggested that she try it before hand. She does have sleepiness at times but it tends to be in the evening falling asleep at the TV and then declining to go to bed. She does not have drowsiness in the late afternoon after the afternoon Seroquel. I told her daughter that the fourth 1 is completely as needed and she can try it in half pills first to see if she tolerates. -As we were wrapping up with the information above, her daughter mentions that her mother has been getting dizziness again. We reflected that she had dizziness in the past that her daughter had attributed to Seroquel/quetiapine and then later tolerated higher doses and that we also had in mind to decrease donepezil which could contribute to some dizziness and orthostasis. Her daughter says it occurs when he bends over. She is We decide on another short-term follow-up in 1 months to see if a trial of early to mid afternoon quetiapine helps with late afternoon agitation. I have asked her daughter to monitor for dizziness and for headache and we may address 1 of these issues at follow-up REVIEW of November 05, 2023: Migraines have been reasonably well-controlled on Emgality 120 mg per mL autoinjector however, at the end of our visit today, her daughter describes swelling of the arm after the injection and oral swelling at some point at least once in the interval. Therefore, due to concern for allergic reaction, I have advised her and her daughter to stop Emgality. Next injection due tomorrow. -In the meanwhile, there was an escalation of afternoon behavioral issues characterized by screaming at family members, and also exacerbating headaches. Her daughter has not initiated afternoon quetiapine/Seroquel which we discussed previously. We discussed risk versus benefits of additional Seroquel in this context (including risk of ) versus quality of life if it helps with afternoon behavioral outbursts. Her daughter understands and would like to go ahead with trial of afternoon Seroquel as previously planned. She will begin with half a tablet of Seroquel, 12.5 mg at 2 in the afternoon and if no side effect and no benefit she will try it a bit earlier at 1 PM. If no side effect, and no benefit, then trial of a full 25 mg after 2 to 3 days. -I have asked her daughter to monitor for daytime napping, in particular if this causes increased wakefulness at night. -We will plan short-term follow-up in 2 weeks at which time (depending on how the additional Seroquel goes) we will discuss alternatives for migraine prevention REVIEW of August 05, 2023, emergence of afternoon behavioral issues, quetiapine discussion: Primary issue noted by her daughter is increased behavioral issues now in the afternoon 2-3 times per week and some increased nighttime with some screaming and hair pulling both in the late afternoon and at night with some difficulty falling asleep. We discussed adding an additional 25 mg of quetiapine as needed. This will be separate from the 3 that she is giving her in the evening. I told her (daughter) she should give it to her at the earliest onset of that afternoon behavioral issues and if she finds that it is consistent at a certain time of day in the afternoon to give it to her about an hour before hand. If she is excessively sleepy, she could try half a tablet. Alternatively, if the nocturnal issue is the primary problem, she could try the extra at night. We also discussed that quetiapine can make EKG changes that can lead to arrhythmia also with advancing progressive dementia, the benefits may outweigh the risk. I defer to her daughter and primary care whether to check an EKG. I changed the prescription and told her she may hold off on adding the extra as needed until she discusses it with primary care if she prefers. July 03, 2023: -Dizziness: She was having improving control winter 2022 and we agreed on a 6-month follow-up, the longest That we have and turned into 7 months. In the interim a number of issues have resurfaced including episodes of dizziness. Originally denies any positional change to this, however there has been additional discussion ofapositional component when Ms Krause shares some of the symptoms herself. I have asked her /her daughter to discuss the symptoms with primary care and cardiology. She has had orthostatic dizziness in the past. Past concern about increasing Seroquel from 50 mg nightly to 75 mg nightly but subsequently tolerated it. This could be further reduced if there is no other etiology of the orthostasis. -Gait: She has not had falls. I encouraged her to use a walker when she is outside of the house and a cane when she is inside of the house. -Headache: There has been some concurrent 10-minute episodes of headache. This does not seem to be the dominant issue. She continues Emgality 120 mg/mL monthly autoinjector, prior authorization expires October 12, 2023 -Agitation and waking: She has had worsening in the last week and a half. She continues mirtazapine 30 mg, melatonin 9 mg and 0.75 mg of clonazepam as well as quetiapine 25 mg, 1 to 3 tablets. We will not make changes today and if this is the dominant issue at follow-up we will focus on it -Bladder: She continues working with the urologist, she may begin Botox treatments -General discussion: We agree on renewing all of her medications today and making no changes and reverting to shorter interval follow-ups given multiple recent issues and when things are going well without any problem we will plan 90-day follow-ups rather than 6-month follow-ups. December 03, 2022: For the most part, she continues to do well on Emgality monthly autoinjector for migraines, clonazepam 0.75 mg at bedtime, quetiapine 75 mg at bedtime and mirtazapine 30 mg at bedtime for behavioral issues the addition of melatonin 9 mg at night for sleep. Her daughter has noted that the dreams seem to be more vivid when Emgality is wearing off. I do not know that there is a direct correlation although I wonder if she is having unreported migraines with a wearing off effect in the final week. She occasionally has some excessive daytime sleepiness. We decided not to make any changes in the exception her daughter may try giving her melatonin 6 mg instead of 9 mg if she is sleeping well through the night and has excessive daytime sleepiness (or alternatively to 25 mg tablets of quetiapine instead of 3) but I do not suggest this in the final week of Emgality wearing off he is probably having some difficulty with sleep by the description. We decided on a 6-month follow-up as she was also doing well at her last follow-up 3 months ago and no changes were made. August 14, 2022: Currently, she is doing well, sleeping is improved on clonazepam 0.75 mg, increased from 0.5 mg at her last visit. She continues Seroquel 75 mg nightly and mirtazapine 30 mg daily. Headaches are well controlled on Emgality. We will not make any changes today. July 09, 2022: Behavior and REM sleep disorder have worsened. This emerged about a month after reducing clonazepam to 1 mg nightly to 0.5 mg nightly. Her daughter is concerned that her dementia has worsened. Seroquel has been increased since her last visit from two 25 mg nightly to three 25 mg nightly now without side effect of dizziness but no improvement. Previously, clonazepam 0.75 mg helped and there is no improvement on 1 mg. We will increase current clonazepam from 0.5 mg to 0.75 mg. She has had some somnolence and possibly dizziness associated with Seroquel (may have also been related to her nonneurologic medications) but is now tolerating the 75 mg nightly. --March 05, 2022: Excellent effect with trial of Emgality for migraine. She has not experienced any side effects nor any constipation February 05, 2022 discussion --Office trial of Emgality sample with loading dose. --Daughter unable to find mirtazapine that pharmacy records as dispensed. Extra prescription sent to a different pharmacy to use [facility]. January 29, 2022 discussion Sleep was improved at her January 01, 2022 follow-up appointment on mirtazapine 30 mg, quetiapine 50 mg nightly 3 tablets of melatonin with some nocturnal awakening playing with her dolls but no longer pulling at her hair. She is also currently on clonazepam 1 mg every evening which we will consider reducing at a future visit. January 01, 2022 follow-up was notable for ongoing left-sided headaches and for constipation. -- Discrepancy of Aimovig dose --Severe constipation to see GI --Reviewed prior constipation on [facility] PREVIOUS ISSUES: 09/11/21: Ongoing worsened mood with crying since June 2021 visits and wanting to sleep 3 or 4 days/week remains the central concern. Mirtazapine 22.5 mg dose has not made much of a difference and nocturnal awakening. She has had the ability to self soothe which patient herself describes. Her daughter Mary had noted a slight improvement on the 7.5 mg dose of mirtazapine which was started in Feb 28 2021 without significant improvement with recent dose adjustment and 7.5 mg increments. We cannot exclude a paradoxical reaction with current evidence of partial benefit at lower dose 7 .5 mg but worsening at 15 mg. There is no clear worsening at 22.5 mg and so we have opted for an increase to 30 mg but if no clear improvement then we will consider slow dose reductions back to 7.5 mg which was the last dose at which she had clear improvement. 2018: She has had confusion on the phone that made her anxious. This likely relates to worsening cognition expressive aphasia may emerge and it usually comes first over the telephone, later person to person. The daughter validates this, there has been a little of this talking between patient and daughter, but not nearly as much as on the telephone. I counseled her to have people she wants to talk with on the telephone come visit, if possible and to minimize telephone talking. Perhaps this is why these events are not an issue anymore. 2017: There was a nonspecific 15 minute episodes November 01, 2016 with right face droop and right chest pain. [facility] could find no stroke or heart attack evidence. She is on aspirin. I do not think further medication change or investigation is needed. Previous discussions from February 2016 or before: I explained that the problems on the telephone relate to reduced capability to communicate over the telephone, which is harder for people with dementia than talking [id number]. Previously: Management pathway for choosing Aimovig as headache medication: --There is contraindication of Topamax (age) and propranolol (hypotension issues) regimen and age. --Amitriptyline has been discontinued by primary care earlier in 2020 with no effect on headaches. There did not seem to be any correlation and time with her onset of depression, either. The 25 mg dose was too small to have any likely effect on mood in any case. BILLING: Discussion across issues of diagnoses and management and same day associated chart review and management greater than 50% greater than 45 minutes juana Not available 02/10/2024 20:06:21 06/01/2024 [id number] PREVIOUS MEDICAT ION Emgality 120 mg/mL monthly autoinjector loading dose February 05, 2022, discontinued November 05, 2023 in context of reported transient swelling at the injection site since July or August 2023 and report from daughter of swelling of the lip. Aimovig 70 mg/mL -breakthrough migraines and constipation, trial of 140 mg/mL was reversed to 70 mg/mL and missed injections October through December 2020 with worsening migraines Midodrine fludrocortisone discontinued by cardiology 08/08/21, also Myrbetriq discontinued as per June 2021 urology note Also not currently taking as per 08/09/2021 pill count visit:benzonatate capsule, hydrocortisone 2.5% topical cream, nitrofurantoin, tolterodine, tramadol. Amitriptyline, discontinued by PCP per May 2021 follow-up, not correlating with any symptomatic change, not with depression in particular Klonopin: Initial benefit up to 0.75 mg for fighting movements/hair pulling during sleep, no benefit upon final increase April 24, 2017 to 1 mg, but no side effects so keeping that dose. 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 Risperidone, insufficient for behavioral dyscontrol, which responded to Seroquel 50 mg in March 2015 Uro: We are in receipt of her most recent visit with Dr. Trip Goetz, her urologist, dated 07/09/2021. It is noted that she had started oxybutynin in May she had failed trials of Myrbetriq and tolterodine. It was further noted that gemtesa (vibegron) is not approved. It was noted that she has had significantly less accidents in the day, less frequency and dry overnight. MEDICATIONS UPDATED WITH PILL COUNT ON 08/09/2021 Aimovig subcutaneous autoinjector once monthly Aspirin 81 mg delayed release once daily Biotin 1000 mcg with keratin Bisacodyl 5 mg release 2 tabs at bed time Colecalciferol (vitamin D3) 125 mcg (5000 units) per capsule 1 capsule daily Docusate sodium 100 mg capsule 2 capsules twice daily Donepezil 10 mg, 1 tab at bedtime Dorzolamide 22.3 mg t imolol 6.8 mg/mL eyedrops, 1 drop in both eyes twice daily CVS fiber 500 mg, 2 tabs daily as needed for constipation CVS anti-gas 180 mg soft gel is prescribed as 1 tab 4 times daily but only takes it twice daily. Fluoxetine 20 mg capsule, 1 capsule twice daily Fluticasone propionate 50 mcg/actuation nasal spray, suspension, 2 sprays in each nostril once daily as needed congestion Humalog U 1 00 insulin 100 units/mL subcutaneous solution, inject 07 6 units subcutaneously once daily Hydroxyzine 25 mg prescribed as 1 tablet by mouth 3 times daily as needed for itching: Usually takes it daily. Levothyroxine 125 mcg tablet once daily in the morning Magnesium oxide 400 mg daily Melatonin 3 mg tablet as Rx'd currently at 2 tablets per her bottle but is taking 3 tablets as advised by us previously. Mirtazapine 15 mg tablet once daily (increased to 22.5 mg on 08/09/2021 and further increased 08/25/2021 to 30 mg daily) Nystatin 100,000 unit/g topical cream Ondansetron 4 mg disintegrating tablets -take sometimes Oxybutynin chloride ER 10 mg tablet extended release 1 tab daily Pantoprazole 40 mg tab daily Quetiapine 25 mg tablet 1 to 3 tablets by mouth every day at bedtime, 2 tabs nightly, (we remember: Dizziness although perhaps better benefit at 3 tablets nightly). Trulance 3 mg tablet 1 tab daily (does not have here, rarely uses) Xiidra 5% eyedrops in a drop Pat, 1 drop in both eyes twice daily FUTURE DISCUSSIONS In addition to above, we may consider reduction of fluoxetine as mirtazapine is increased PREVIOUS DISCUSSIONS: December 17, 2023: Headaches have now reemerged after stopping Emgality concerns for an allergic reaction. It is likely that she still had some residual effect when I last saw her on November 19. She is having increasing dizziness characterized by bending, likely related to her prior history of orthostatic hypotension. We discussed decreasing or stopping donepezil which may be contributing. I offered to either treat the migraine or decrease donepezil which may be contributing to orthostatic hypotension. She would like to do both. I offer to make 1 change. Her daughter suggests treating the headache. In the context of review of prescribed medications (in the EMR) here is that midodrine has been resumed at some point with a 90-day prescription as recently as September 2023. (Previously off of it in 2020 and appears to have been resumed in June 2023). Her daughter says that she is not taking this and that it was prescribed by her urologist. Aside from I defer to primary care to primary care, cardiology or the treating prescriber regarding ongoing midodrine and management of orthostatic dizziness. I offered a trial of Qulipta given possible allergic reaction to Emgality, prior constipation on Aimovig. We went over potential side effects which do include some nausea and constipation. We will begin at a moderate dose of 30 mg daily and we will make a decision at follow-up whether to increase it. If she has significant GI side effects, I will consider Nurtec but held off for now as her daughter is already burdened with administration of her multiple medications and adding every other day dosing may be a challenge. She elected to move forward. Prescription was sent to her pharmacy and within moments her pharmacy requested prior authorization from her office: She has responded positively to other CGRP inhibitors, I think it is reasonable to go ahead with prior authorization today. 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 We will make a decision about increasing to the 60 mg dose sometime after the biopsy if she is tolerating it and has insufficient benefit. Behavior in the late afternoon seems to be improved by taking quetiapine 25 mg at about 2 PM which is about 2 hours before the afternoon behavioral issues were emerging. Per her daughter, she is tolerating this without inducing late afternoon napping. At the end of our visit today, her daughter asks her daughter asks for prescription for nausea and dizziness for her mother. She has been getting nauseous with meals although it does not seem to be associated with headaches. Therefore, I defer to primary care regarding management of nausea (or her college professor). November 19 2023: She is nearly 2 weeks past due for Emgality and headaches seem to be slightly better than they were previously. We decided to hold off on introducing another preventative for now. Her Daughter says that her maintenance trainer feels that she may have skin cancer, she wonders if this could contribute to the headaches. I think it is unlikely. It is not impossible and I told this to her daughter but out of the different sites where she might have a cancer it is less likely. Her daughter has not shared this information with her mother. In any case, I suggested to the daughter that she not worry too much about whether the skin cancer is in her brain until they have more information from maintenance trainer. -It is not entirely clear to me if she has tried additional Seroquel, it sounds like the late afternoon Seroquel but given after she begins to have the agitations. I suggested that she try it before hand. She does have sleepiness at times but it tends to be in the evening falling asleep at the TV and then declining to go to bed. She does not have drowsiness in the late afternoon after the afternoon Seroquel. I told her daughter that the fourth 1 is completely as needed and she can try it in half pills first to see if she tolerates. -As we were wrapping up with the information above, her daughter mentions that her mother has been getting dizziness again. We reflected that she had dizziness in the past that her daughter had attributed to Seroquel/quetiapine and then later tolerated higher doses and that we also had in mind to decrease donepezil which could contribute to some dizziness and orthostasis. Her daughter says it occurs when he bends over. She is We decide on another short-term follow-up in 1 months to see if a trial of early to mid afternoon quetiapine helps with late afternoon agitation. I have asked her daughter to monitor for dizziness and for headache and we may address 1 of these issues at follow-up REVIEW of November 05, 2023: Migraines have been reasonably well-controlled on Emgality 120 mg per mL autoinjector however, at the end of our visit today, her daughter describes swelling of the arm after the injection and oral swelling at some point at least once in the interval. Therefore, due to concern for allergic reaction, I have advised her and her daughter to stop Emgality. Next injection due tomorrow. -In the meanwhile, there was an escalation of afternoon behavioral issues characterized by screaming at family members, and also exacerbating headaches. Her daughter has not initiated afternoon quetiapine/Seroquel which we discussed previously. We discussed risk versus benefits of additional Seroquel in this context (including risk of ) versus quality of life if it helps with afternoon behavioral outbursts. Her daughter understands and would like to go ahead with trial of afternoon Seroquel as previously planned. She will begin with half a tablet of Seroquel, 12.5 mg at 2 in the afternoon and if no side effect and no benefit she will try it a bit earlier at 1 PM. If no side effect, and no benefit, then trial of a full 25 mg after 2 to 3 days. -I have asked her daughter to monitor for daytime napping, in particular if this causes increased wakefulness at night. -We will plan short-term follow-up in 2 weeks at which time (depending on how the additional Seroquel goes) we will discuss alternatives for migraine prevention REVIEW of August 05, 2023, emergence of afternoon behavioral issues, quetiapine discussion: Primary issue noted by her daughter is increased behavioral issues now in the afternoon 2-3 times per week and some increased nighttime with some screaming and hair pulling both in the late afternoon and at night with some difficulty falling asleep. We discussed adding an additional 25 mg of quetiapine as needed. This will be separate from the 3 that she is giving her in the evening. I told her (daughter) she should give it to her at the earliest onset of that afternoon behavioral issues and if she finds that it is consistent at a certain time of day in the afternoon to give it to her about an hour before hand. If she is excessively sleepy, she could try half a tablet. Alternatively, if the nocturnal issue is the primary problem, she could try the extra at night. We also discussed that quetiapine can make EKG changes that can lead to arrhythmia also with advancing progressive dementia, the benefits may outweigh the risk. I defer to her daughter and primary care whether to check an EKG. I changed the prescription and told her she may hold off on adding the extra as needed until she discusses it with primary care if she prefers. July 03, 2023: -Dizziness: She was having improving control winter 2022 and we agreed on a 6-month follow-up, the longest That we have and turned into 7 months. In the interim a number of issues have resurfaced including episodes of dizziness. Originally denies any positional change to this, however there has been additional discussion ofapositional component when Ms Krause shares some of the symptoms herself. I have asked her /her daughter to discuss the symptoms with primary care and cardiology. She has had orthostatic dizziness in the past. Past concern about increasing Seroquel from 50 mg nightly to 75 mg nightly but subsequently tolerated it. This could be further reduced if there is no other etiology of the orthostasis. -Gait: She has not had falls. I encouraged her to use a walker when she is outside of the house and a cane when she is inside of the house. -Headache: There has been some concurrent 10-minute episodes of headache. This does not seem to be the dominant issue. She continues Emgality 120 mg/mL monthly autoinjector, prior authorization expires October 12, 2023 -Agitation and waking: She has had worsening in the last week and a half. She continues mirtazapine 30 mg, melatonin 9 mg and 0.75 mg of clonazepam as well as quetiapine 25 mg, 1 to 3 tablets. We will not make changes today and if this is the dominant issue at follow-up we will focus on it -Bladder: She continues working with the urologist, she may begin Botox treatments -General discussion: We agree on renewing all of her medications today and making no changes and reverting to shorter interval follow-ups given multiple recent issues and when things are going well without any problem we will plan 90-day follow-ups rather than 6-month follow-ups. December 03, 2022: For the most part, she continues to do well on Emgality monthly autoinjector for migraines, clonazepam 0.75 mg at bedtime, quetiapine 75 mg at bedtime and mirtazapine 30 mg at bedtime for behavioral issues the addition of melatonin 9 mg at night for sleep. Her daughter has noted that the dreams seem to be more vivid when Emgality is wearing off. I do not know that there is a direct correlation although I wonder if she is having unreported migraines with a wearing off effect in the final week. She occasionally has some excessive daytime sleepiness. We decided not to make any changes in the exception her daughter may try giving her melatonin 6 mg instead of 9 mg if she is sleeping well through the night and has excessive daytime sleepiness (or alternatively to 25 mg tablets of quetiapine instead of 3) but I do not suggest this in the final week of Emgality wearing off he is probably having some difficulty with sleep by the description. We decided on a 6-month follow-up as she was also doing well at her last follow-up 3 months ago and no changes were made. August 14, 2022: Currently, she is doing well, sleeping is improved on clonazepam 0.75 mg, increased from 0.5 mg at her last visit. She continues Seroquel 75 mg nightly and mirtazapine 30 mg daily. Headaches are well controlled on Emgality. We will not make any changes today. July 09, 2022: Behavior and REM sleep disorder have worsened. This emerged about a month after reducing clonazepam to 1 mg nightly to 0.5 mg nightly. Her daughter is concerned that her dementia has worsened. Seroquel has been increased since her last visit from two 25 mg nightly to three 25 mg nightly now without side effect of dizziness but no improvement. Previously, clonazepam 0.75 mg helped and there is no improvement on 1 mg. We will increase current clonazepam from 0.5 mg to 0.75 mg. She has had some somnolence and possibly dizziness associated with Seroquel (may have also been related to her nonneurologic medications) but is now tolerating the 75 mg nightly. --March 05, 2022: Excellent effect with trial of Emgality for migraine. She has not experienced any side effects nor any constipation February 05, 2022 discussion --Office trial of Emgality sample with loading dose. --Daughter unable to find mirtazapine that pharmacy records as dispensed. Extra prescription sent to a different pharmacy to use [facility]. January 29, 2022 discussion Sleep was improved at her January 01, 2022 follow-up appointment on mirtazapine 30 mg, quetiapine 50 mg nightly 3 tablets of melatonin with some nocturnal awakening playing with her dolls but no longer pulling at her hair. She is also currently on clonazepam 1 mg every evening which we will consider reducing at a future visit. January 01, 2022 follow-up was notable for ongoing left-sided headaches and for constipation. -- Discrepancy of Aimovig dose --Severe constipation to see GI --Reviewed prior constipation on Ajovy PREVIOUS ISSUES: 09/11/21: Ongoing worsened mood with crying since June 2021 visits and wanting to sleep 3 or 4 days/week remains the central concern. Mirtazapine 22.5 mg dose has not made much of a difference and nocturnal awakening. She has had the ability to self soothe which patient herself describes. Her daughter Mary had noted a slight improvement on the 7.5 mg dose of mirtazapine which was started in Feb 28 2021 without significant improvement with recent dose adjustment and 7.5 mg increments. We cannot exclude a paradoxical reaction with current evidence of partial benefit at lower dose 7 .5 mg but worsening at 15 mg. There is no clear worsening at 22.5 mg and so we have opted for an increase to 30 mg but if no clear improvement then we will consider slow dose reductions back to 7.5 mg which was the last dose at which she had clear improvement. 2018: She has had confusion on the phone that made her anxious. This likely relates to worsening cognition expressive aphasia may emerge and it usually comes first over the telephone, later person to person. The daughter validates this, there has been a little of this talking between patient and daughter, but not nearly as much as on the telephone. I counseled her to have people she wants to talk with on the telephone come visit, if possible and to minimize telephone talking. Perhaps this is why these events are not an issue anymore. 2017: There was a nonspecific 15 minute episodes November 01, 2016 with right face droop and right chest pain. [facility] could find no stroke or heart attack evidence. She is on aspirin. I do not think further medication change or investigation is needed. Previous discussions from February 2016 or before: I explained that the problems on the telephone relate to reduced capability to communicate over the telephone, which is harder for people with dementia than talking [id number]. Previously: Management pathway for choosing Aimovig as headache medication: --There is contraindication of Topamax (age) and propranolol (hypotension issues) regimen and age. --Amitriptyline has been discontinued by primary care earlier in 2020 with no effect on headaches. There did not seem to be any correlation and time with her onset of depression, either. The 25 mg dose was too small to have any likely effect on mood in any case. BILLING: Discussion across issues of diagnoses and management and same day associated chart review and management greater than 50% greater than 30 minutes Chronic illness posing threat to bodily function including driving, drug therapy requiring intensive monitoring for toxicity [email or web address] Not available 06/01/2024 13:45:56 12/09/2024 [id number] PREVIOUS MEDICAT ION Emgality 120 mg/mL monthly autoinjector loading dose February 05, 2022, discontinued November 05, 2023 in context of reported transient swelling at the injection site since July or August 2023 and report from daughter of swelling of the lip. Aimovig 70 mg/mL -breakthrough migraines and constipation, trial of 140 mg/mL was reversed to 70 mg/mL and missed injections October through December 2020 with worsening migraines Midodrine fludrocortisone discontinued by cardiology 08/08/21, also Myrbetriq discontinued as per June 2021 urology note Also not currently taking as per 08/09/2021 pill count visit:benzonatate capsule, hydrocortisone 2.5% topical cream, nitrofurantoin, tolterodine, tramadol. Amitriptyline, discontinued by PCP per May 2021 follow-up, not correlating with any symptomatic change, not with depression in particular Klonopin: Initial benefit up to 0.75 mg for fighting movements/hair pulling during sleep, no benefit upon final increase April 24, 2017 to 1 mg, but no side effects so keeping that dose. 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 Risperidone, insufficient for behavioral dyscontrol, which responded to Seroquel 50 mg in March 2015 Uro: We are in receipt of her most recent visit with Dr. Trip Goetz, her urologist, dated 07/09/2021. It is noted that she had started oxybutynin in May she had failed trials of Myrbetriq and tolterodine. It was further noted that gemtesa (vibegron) is not approved. It was noted that she has had significantly less accidents in the day, less frequency and dry overnight. MEDICATIONS UPDATED WITH PILL COUNT ON 08/09/2021 Aimovig subcutaneous autoinjector once monthly Aspirin 81 mg delayed release once daily Biotin 1000 mcg with keratin Bisacodyl 5 mg release 2 tabs at bed time Colecalciferol (vitamin D3) 125 mcg (5000 units) per capsule 1 capsule daily Docusate sodium 100 mg capsule 2 capsules twice daily Donepezil 10 mg, 1 tab at bedtime Dorzolamide 22.3 mg t imolol 6.8 mg/mL eyedrops, 1 drop in both eyes twice daily [facility] fiber 500 mg, 2 tabs daily as needed for constipation [facility] anti-gas 180 mg soft gel is prescribed as 1 tab 4 times daily but only takes it twice daily. Fluoxetine 20 mg capsule, 1 capsule twice daily Fluticasone propionate 50 mcg/actuation nasal spray, suspension, 2 sprays in each nostril once daily as needed congestion Humalog U 1 00 insulin 100 units/mL subcutaneous solution, inject 07 6 units subcutaneously once daily Hydroxyzine 25 mg prescribed as 1 tablet by mouth 3 times daily as needed for itching: Usually takes it daily. Levothyroxine 125 mcg tablet once daily in the morning Magnesium oxide 400 mg daily Melatonin 3 mg tablet as Rx'd currently at 2 tablets per her bottle but is taking 3 tablets as advised by us previously. Mirtazapine 15 mg tablet once daily (increased to 22.5 mg on 08/09/2021 and further increased 08/25/2021 to 30 mg daily) Nystatin 100,000 unit/g topical cream Ondansetron 4 mg disintegrating tablets -take sometimes Oxybutynin chloride ER 10 mg tablet extended release 1 tab daily Pantoprazole 40 mg tab daily Quetiapine 25 mg tablet 1 to 3 tablets by mouth every day at bedtime, 2 tabs nightly, (we remember: Dizziness although perhaps better benefit at 3 tablets nightly). Trulance 3 mg tablet 1 tab daily (does not have here, rarely uses) Xiidra 5% eyedrops in a drop Pat, 1 drop in both eyes twice daily FUTURE DISCUSSIONS In addition to above, we may consider reduction of fluoxetine as mirtazapine is increased PREVIOUS DISCUSSIONS: December 17, 2023: Headaches have now reemerged after stopping Emgality concerns for an allergic reaction. It is likely that she still had some residual effect when I last saw her on November 19. She is having increasing dizziness characterized by bending, likely related to her prior history of orthostatic hypotension. We discussed decreasing or stopping donepezil which may be contributing. I offered to either treat the migraine or decrease donepezil which may be contributing to orthostatic hypotension. She would like to do both. I offer to make 1 change. Her daughter suggests treating the headache. In the context of review of prescribed medications (in the EMR) here is that midodrine has been resumed at some point with a 90-day prescription as recently as September 2023. (Previously off of it in 2020 and appears to have been resumed in June 2023). Her daughter says that she is not taking this and that it was prescribed by her urologist. Aside from I defer to primary care to primary care, cardiology or the treating prescriber regarding ongoing midodrine and management of orthostatic dizziness. I offered a trial of Qulipta given possible allergic reaction to Emgality, prior constipation on Aimovig. We went over potential side effects which do include some nausea and constipation. We will begin at a moderate dose of 30 mg daily and we will make a decision at follow-up whether to increase it. If she has significant GI side effects, I will consider Nurtec but held off for now as her daughter is already burdened with administration of her multiple medications and adding every other day dosing may be a challenge. She elected to move forward. Prescription was sent to her pharmacy and within moments her pharmacy requested prior authorization from her office: She has responded positively to other CGRP inhibitors, I think it is reasonable to go ahead with prior authorization today. 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 We will make a decision about increasing to the 60 mg dose sometime after the biopsy if she is tolerating it and has insufficient benefit. Behavior in the late afternoon seems to be improved by taking quetiapine 25 mg at about 2 PM which is about 2 hours before the afternoon behavioral issues were emerging. Per her daughter, she is tolerating this without inducing late afternoon napping. At the end of our visit today, her daughter asks her daughter asks for prescription for nausea and dizziness for her mother. She has been getting nauseous with meals although it does not seem to be associated with headaches. Therefore, I defer to primary care regarding management of nausea (or her college professor). November 19 2023: She is nearly 2 weeks past due for Emgality and headaches seem to be slightly better than they were previously. We decided to hold off on introducing another preventative for now. Her Daughter says that her maintenance trainer feels that she may have skin cancer, she wonders if this could contribute to the headaches. I think it is unlikely. It is not impossible and I told this to her daughter but out of the different sites where she might have a cancer it is less likely. Her daughter has not shared this information with her mother. In any case, I suggested to the daughter that she not worry too much about whether the skin cancer is in her brain until they have more information from maintenance trainer. -It is not entirely clear to me if she has tried additional Seroquel, it sounds like the late afternoon Seroquel but given after she begins to have the agitations. I suggested that she try it before hand. She does have sleepiness at times but it tends to be in the evening falling asleep at the TV and then declining to go to bed. She does not have drowsiness in the late afternoon after the afternoon Seroquel. I told her daughter that the fourth 1 is completely as needed and she can try it in half pills first to see if she tolerates. -As we were wrapping up with the information above, her daughter mentions that her mother has been getting dizziness again. We reflected that she had dizziness in the past that her daughter had attributed to Seroquel/quetiapine and then later tolerated higher doses and that we also had in mind to decrease donepezil which could contribute to some dizziness and orthostasis. Her daughter says it occurs when he bends over. She is We decide on another short-term follow-up in 1 months to see if a trial of early to mid afternoon quetiapine helps with late afternoon agitation. I have asked her daughter to monitor for dizziness and for headache and we may address 1 of these issues at follow-up REVIEW of November 05, 2023: Migraines have been reasonably well-controlled on Emgality 120 mg per mL autoinjector however, at the end of our visit today, her daughter describes swelling of the arm after the injection and oral swelling at some point at least once in the interval. Therefore, due to concern for allergic reaction, I have advised her and her daughter to stop Emgality. Next injection due tomorrow. -In the meanwhile, there was an escalation of afternoon behavioral issues characterized by screaming at family members, and also exacerbating headaches. Her daughter has not initiated afternoon quetiapine/Seroquel which we discussed previously. We discussed risk versus benefits of additional Seroquel in this context (including risk of ) versus quality of life if it helps with afternoon behavioral outbursts. Her daughter understands and would like to go ahead with trial of afternoon Seroquel as previously planned. She will begin with half a tablet of Seroquel, 12.5 mg at 2 in the afternoon and if no side effect and no benefit she will try it a bit earlier at 1 PM. If no side effect, and no benefit, then trial of a full 25 mg after 2 to 3 days. -I have asked her daughter to monitor for daytime napping, in particular if this causes increased wakefulness at night. -We will plan short-term follow-up in 2 weeks at which time (depending on how the additional Seroquel goes) we will discuss alternatives for migraine prevention REVIEW of August 05, 2023, emergence of afternoon behavioral issues, quetiapine discussion: Primary issue noted by her daughter is increased behavioral issues now in the afternoon 2-3 times per week and some increased nighttime with some screaming and hair pulling both in the late afternoon and at night with some difficulty falling asleep. We discussed adding an additional 25 mg of quetiapine as needed. This will be separate from the 3 that she is giving her in the evening. I told her (daughter) she should give it to her at the earliest onset of that afternoon behavioral issues and if she finds that it is consistent at a certain time of day in the afternoon to give it to her about an hour before hand. If she is excessively sleepy, she could try half a tablet. Alternatively, if the nocturnal issue is the primary problem, she could try the extra at night. We also discussed that quetiapine can make EKG changes that can lead to arrhythmia also with advancing progressive dementia, the benefits may outweigh the risk. I defer to her daughter and primary care whether to check an EKG. I changed the prescription and told her she may hold off on adding the extra as needed until she discusses it with primary care if she prefers. July 03, 2023: -Dizziness: She was having improving control winter 2022 and we agreed on a 6-month follow-up, the longest That we have and turned into 7 months. In the interim a number of issues have resurfaced including episodes of dizziness. Originally denies any positional change to this, however there has been additional discussion ofapositional component when Ms Krause shares some of the symptoms herself. I have asked her /her daughter to discuss the symptoms with primary care and cardiology. She has had orthostatic dizziness in the past. Past concern about increasing Seroquel from 50 mg nightly to 75 mg nightly but subsequently tolerated it. This could be further reduced if there is no other etiology of the orthostasis. -Gait: She has not had falls. I encouraged her to use a walker when she is outside of the house and a cane when she is inside of the house. -Headache: There has been some concurrent 10-minute episodes of headache. This does not seem to be the dominant issue. She continues Emgality 120 mg/mL monthly autoinjector, prior authorization expires October 12, 2023 -Agitation and waking: She has had worsening in the last week and a half. She continues mirtazapine 30 mg, melatonin 9 mg and 0.75 mg of clonazepam as well as quetiapine 25 mg, 1 to 3 tablets. We will not make changes today and if this is the dominant issue at follow-up we will focus on it -Bladder: She continues working with the urologist, she may begin Botox treatments -General discussion: We agree on renewing all of her medications today and making no changes and reverting to shorter interval follow-ups given multiple recent issues and when things are going well without any problem we will plan 90-day follow-ups rather than 6-month follow-ups. December 03, 2022: For the most part, she continues to do well on Emgality monthly autoinjector for migraines, clonazepam 0.75 mg at bedtime, quetiapine 75 mg at bedtime and mirtazapine 30 mg at bedtime for behavioral issues the addition of melatonin 9 mg at night for sleep. Her daughter has noted that the dreams seem to be more vivid when Emgality is wearing off. I do not know that there is a direct correlation although I wonder if she is having unreported migraines with a wearing off effect in the final week. She occasionally has some excessive daytime sleepiness. We decided not to make any changes in the exception her daughter may try giving her melatonin 6 mg instead of 9 mg if she is sleeping well through the night and has excessive daytime sleepiness (or alternatively to 25 mg tablets of quetiapine instead of 3) but I do not suggest this in the final week of Emgality wearing off he is probably having some difficulty with sleep by the description. We decided on a 6-month follow-up as she was also doing well at her last follow-up 3 months ago and no changes were made. August 14, 2022: Currently, she is doing well, sleeping is improved on clonazepam 0.75 mg, increased from 0.5 mg at her last visit. She continues Seroquel 75 mg nightly and mirtazapine 30 mg daily. Headaches are well controlled on Emgality. We will not make any changes today. July 09, 2022: Behavior and REM sleep disorder have worsened. This emerged about a month after reducing clonazepam to 1 mg nightly to 0.5 mg nightly. Her daughter is concerned that her dementia has worsened. Seroquel has been increased since her last visit from two 25 mg nightly to three 25 mg nightly now without side effect of dizziness but no improvement. Previously, clonazepam 0.75 mg helped and there is no improvement on 1 mg. We will increase current clonazepam from 0.5 mg to 0.75 mg. She has had some somnolence and possibly dizziness associated with Seroquel (may have also been related to her nonneurologic medications) but is now tolerating the 75 mg nightly. --March 05, 2022: Excellent effect with trial of Emgality for migraine. She has not experienced any side effects nor any constipation February 05, 2022 discussion --Office trial of Emgality sample with loading dose. --Daughter unable to find mirtazapine that pharmacy records as dispensed. Extra prescription sent to a different pharmacy to use [facility]. January 29, 2022 discussion Sleep was improved at her January 01, 2022 follow-up appointment on mirtazapine 30 mg, quetiapine 50 mg nightly 3 tablets of melatonin with some nocturnal awakening playing with her dolls but no longer pulling at her hair. She is also currently on clonazepam 1 mg every evening which we will consider reducing at a future visit. January 01, 2022 follow-up was notable for ongoing left-sided headaches and for constipation. -- Discrepancy of Aimovig dose --Severe constipation to see GI --Reviewed prior constipation on [facility] PREVIOUS ISSUES: 09/11/21: Ongoing worsened mood with crying since June 2021 visits and wanting to sleep 3 or 4 days/week remains the central concern. Mirtazapine 22.5 mg dose has not made much of a difference and nocturnal awakening. She has had the ability to self soothe which patient herself describes. Her daughter Mary had noted a slight improvement on the 7.5 mg dose of mirtazapine which was started in Feb 28 2021 without significant improvement with recent dose adjustment and 7.5 mg increments. We cannot exclude a paradoxical reaction with current evidence of partial benefit at lower dose 7 .5 mg but worsening at 15 mg. There is no clear worsening at 22.5 mg and so we have opted for an increase to 30 mg but if no clear improvement then we will consider slow dose reductions back to 7.5 mg which was the last dose at which she had clear improvement. 2018: She has had confusion on the phone that made her anxious. This likely relates to worsening cognition expressive aphasia may emerge and it usually comes first over the telephone, later person to person. The daughter validates this, there has been a little of this talking between patient and daughter, but not nearly as much as on the telephone. I counseled her to have people she wants to talk with on the telephone come visit, if possible and to minimize telephone talking. Perhaps this is why these events are not an issue anymore. 2017: There was a nonspecific 15 minute episodes November 01, 2016 with right face droop and right chest pain. [facility] could find no stroke or heart attack evidence. She is on aspirin. I do not think further medication change or investigation is needed. Previous discussions from February 2016 or before: I explained that the problems on the telephone relate to reduced capability to communicate over the telephone, which is harder for people with dementia than talking [id number]. Previously: Management pathway for choosing Aimovig as headache medication: --There is contraindication of Topamax (age) and propranolol (hypotension issues) regimen and age. --Amitriptyline has been discontinued by primary care earlier in 2020 with no effect on headaches. There did not seem to be any correlation and time with her onset of depression, either. The 25 mg dose was too small to have any likely effect on mood in any case. BILLING: Discussion across issues of diagnoses and management and same day associated chart review and management greater than 50% greater than 40 minutes Chronic illness posing threat to bodily function including driving, drug therapy requiring intensive monitoring for toxicity [email or web address] Not available 12/09/2024 11:39:54 05/05/2025 [id number] PREVIOUS MEDICAT ION Emgality 120 mg/mL monthly autoinjector loading dose February 05, 2022, discontinued November 05, 2023 in context of reported transient swelling at the injection site since July or August 2023 and report from daughter of swelling of the lip. Aimovig 70 mg/mL -breakthrough migraines and constipation, trial of 140 mg/mL was reversed to 70 mg/mL and missed injections October through December 2020 with worsening migraines Midodrine fludrocortisone discontinued by cardiology 08/08/21, also Myrbetriq discontinued as per June 2021 urology note Also not currently taking as per 08/09/2021 pill count visit:benzonatate capsule, hydrocortisone 2.5% topical cream, nitrofurantoin, tolterodine, tramadol. Amitriptyline, discontinued by PCP per May 2021 follow-up, not correlating with any symptomatic change, not with depression in particular Klonopin: Initial benefit up to 0.75 mg for fighting movements/hair pulling during sleep, no benefit upon final increase April 24, 2017 to 1 mg, but no side effects so keeping that dose. 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 Risperidone, insufficient for behavioral dyscontrol, which responded to Seroquel 50 mg in March 2015 Uro: We are in receipt of her most recent visit with Dr. Trip Goetz, her urologist, dated 07/09/2021. It is noted that she had started oxybutynin in May she had failed trials of Myrbetriq and tolterodine. It was further noted that gemtesa (vibegron) is not approved. It was noted that she has had significantly less accidents in the day, less frequency and dry overnight. MEDICATIONS UPDATED WITH PILL COUNT ON 08/09/2021 Aimovig subcutaneous autoinjector once monthly Aspirin 81 mg delayed release once daily Biotin 1000 mcg with keratin Bisacodyl 5 mg release 2 tabs at bed time Colecalciferol (vitamin D3) 125 mcg (5000 units) per capsule 1 capsule daily Docusate sodium 100 mg capsule 2 capsules twice daily Donepezil 10 mg, 1 tab at bedtime Dorzolamide 22.3 mg t imolol 6.8 mg/mL eyedrops, 1 drop in both eyes twice daily [facility] fiber 500 mg, 2 tabs daily as needed for constipation [facility] anti-gas 180 mg soft gel is prescribed as 1 tab 4 times daily but only takes it twice daily. Fluoxetine 20 mg capsule, 1 capsule twice daily Fluticasone propionate 50 mcg/actuation nasal spray, suspension, 2 sprays in each nostril once daily as needed congestion Humalog U 1 00 insulin 100 units/mL subcutaneous solution, inject 07 6 units subcutaneously once daily Hydroxyzine 25 mg prescribed as 1 tablet by mouth 3 times daily as needed for itching: Usually takes it daily. Levothyroxine 125 mcg tablet once daily in the morning Magnesium oxide 400 mg daily Melatonin 3 mg tablet as Rx'd currently at 2 tablets per her bottle but is taking 3 tablets as advised by us previously. Mirtazapine 15 mg tablet once daily (increased to 22.5 mg on 08/09/2021 and further increased 08/25/2021 to 30 mg daily) Nystatin 100,000 unit/g topical cream Ondansetron 4 mg disintegrating tablets -take sometimes Oxybutynin chloride ER 10 mg tablet extended release 1 tab daily Pantoprazole 40 mg tab daily Quetiapine 25 mg tablet 1 to 3 tablets by mouth every day at bedtime, 2 tabs nightly, (we remember: Dizziness although perhaps better benefit at 3 tablets nightly). Trulance 3 mg tablet 1 tab daily (does not have here, rarely uses) Xiidra 5% eyedrops in a drop Pat, 1 drop in both eyes twice daily FUTURE DISCUSSIONS In addition to above, we may consider reduction of fluoxetine as mirtazapine is increased PREVIOUS DISCUSSIONS: December 17, 2023: Headaches have now reemerged after stopping Emgality concerns for an allergic reaction. It is likely that she still had some residual effect when I last saw her on November 19. She is having increasing dizziness characterized by bending, likely related to her prior history of orthostatic hypotension. We discussed decreasing or stopping donepezil which may be contributing. I offered to either treat the migraine or decrease donepezil which may be contributing to orthostatic hypotension. She would like to do both. I offer to make 1 change. Her daughter suggests treating the headache. In the context of review of prescribed medications (in the EMR) here is that midodrine has been resumed at some point with a 90-day prescription as recently as September 2023. (Previously off of it in 2020 and appears to have been resumed in June 2023). Her daughter says that she is not taking this and that it was prescribed by her urologist. Aside from I defer to primary care to primary care, cardiology or the treating prescriber regarding ongoing midodrine and management of orthostatic dizziness. I offered a trial of Qulipta given possible allergic reaction to Emgality, prior constipation on Aimovig. We went over potential side effects which do include some nausea and constipation. We will begin at a moderate dose of 30 mg daily and we will make a decision at follow-up whether to increase it. If she has significant GI side effects, I will consider Nurtec but held off for now as her daughter is already burdened with administration of her multiple medications and adding every other day dosing may be a challenge. She elected to move forward. Prescription was sent to her pharmacy and within moments her pharmacy requested prior authorization from her office: She has responded positively to other CGRP inhibitors, I think it is reasonable to go ahead with prior authorization today. 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 We will make a decision about increasing to the 60 mg dose sometime after the biopsy if she is tolerating it and has insufficient benefit. Behavior in the late afternoon seems to be improved by taking quetiapine 25 mg at about 2 PM which is about 2 hours before the afternoon behavioral issues were emerging. Per her daughter, she is tolerating this without inducing late afternoon napping. At the end of our visit today, her daughter asks her daughter asks for prescription for nausea and dizziness for her mother. She has been getting nauseous with meals although it does not seem to be associated with headaches. Therefore, I defer to primary care regarding management of nausea (or her college professor). November 19 2023: She is nearly 2 weeks past due for Emgality and headaches seem to be slightly better than they were previously. We decided to hold off on introducing another preventative for now. Her Daughter says that her maintenance trainer feels that she may have skin cancer, she wonders if this could contribute to the headaches. I think it is unlikely. It is not impossible and I told this to her daughter but out of the different sites where she might have a cancer it is less likely. Her daughter has not shared this information with her mother. In any case, I suggested to the daughter that she not worry too much about whether the skin cancer is in her brain until they have more information from maintenance trainer. -It is not entirely clear to me if she has tried additional Seroquel, it sounds like the late afternoon Seroquel but given after she begins to have the agitations. I suggested that she try it before hand. She does have sleepiness at times but it tends to be in the evening falling asleep at the TV and then declining to go to bed. She does not have drowsiness in the late afternoon after the afternoon Seroquel. I told her daughter that the fourth 1 is completely as needed and she can try it in half pills first to see if she tolerates. -As we were wrapping up with the information above, her daughter mentions that her mother has been getting dizziness again. We reflected that she had dizziness in the past that her daughter had attributed to Seroquel/quetiapine and then later tolerated higher doses and that we also had in mind to decrease donepezil which could contribute to some dizziness and orthostasis. Her daughter says it occurs when he bends over. She is We decide on another short-term follow-up in 1 months to see if a trial of early to mid afternoon quetiapine helps with late afternoon agitation. I have asked her daughter to monitor for dizziness and for headache and we may address 1 of these issues at follow-up REVIEW of November 05, 2023: Migraines have been reasonably well-controlled on Emgality 120 mg per mL autoinjector however, at the end of our visit today, her daughter describes swelling of the arm after the injection and oral swelling at some point at least once in the interval. Therefore, due to concern for allergic reaction, I have advised her and her daughter to stop Emgality. Next injection due tomorrow. -In the meanwhile, there was an escalation of afternoon behavioral issues characterized by screaming at family members, and also exacerbating headaches. Her daughter has not initiated afternoon quetiapine/Seroquel which we discussed previously. We discussed risk versus benefits of additional Seroquel in this context (including risk of ) versus quality of life if it helps with afternoon behavioral outbursts. Her daughter understands and would like to go ahead with trial of afternoon Seroquel as previously planned. She will begin with half a tablet of Seroquel, 12.5 mg at 2 in the afternoon and if no side effect and no benefit she will try it a bit earlier at 1 PM. If no side effect, and no benefit, then trial of a full 25 mg after 2 to 3 days. -I have asked her daughter to monitor for daytime napping, in particular if this causes increased wakefulness at night. -We will plan short-term follow-up in 2 weeks at which time (depending on how the additional Seroquel goes) we will discuss alternatives for migraine prevention REVIEW of August 05, 2023, emergence of afternoon behavioral issues, quetiapine discussion: Primary issue noted by her daughter is increased behavioral issues now in the afternoon 2-3 times per week and some increased nighttime with some screaming and hair pulling both in the late afternoon and at night with some difficulty falling asleep. We discussed adding an additional 25 mg of quetiapine as needed. This will be separate from the 3 that she is giving her in the evening. I told her (daughter) she should give it to her at the earliest onset of that afternoon behavioral issues and if she finds that it is consistent at a certain time of day in the afternoon to give it to her about an hour before hand. If she is excessively sleepy, she could try half a tablet. Alternatively, if the nocturnal issue is the primary problem, she could try the extra at night. We also discussed that quetiapine can make EKG changes that can lead to arrhythmia also with advancing progressive dementia, the benefits may outweigh the risk. I defer to her daughter and primary care whether to check an EKG. I changed the prescription and told her she may hold off on adding the extra as needed until she discusses it with primary care if she prefers. July 03, 2023: -Dizziness: She was having improving control winter 2022 and we agreed on a 6-month follow-up, the longest That we have and turned into 7 months. In the interim a number of issues have resurfaced including episodes of dizziness. Originally denies any positional change to this, however there has been additional discussion ofapositional component when Ms Krause shares some of the symptoms herself. I have asked her /her daughter to discuss the symptoms with primary care and cardiology. She has had orthostatic dizziness in the past. Past concern about increasing Seroquel from 50 mg nightly to 75 mg nightly but subsequently tolerated it. This could be further reduced if there is no other etiology of the orthostasis. -Gait: She has not had falls. I encouraged her to use a walker when she is outside of the house and a cane when she is inside of the house. -Headache: There has been some concurrent 10-minute episodes of headache. This does not seem to be the dominant issue. She continues Emgality 120 mg/mL monthly autoinjector, prior authorization expires October 12, 2023 -Agitation and waking: She has had worsening in the last week and a half. She continues mirtazapine 30 mg, melatonin 9 mg and 0.75 mg of clonazepam as well as quetiapine 25 mg, 1 to 3 tablets. We will not make changes today and if this is the dominant issue at follow-up we will focus on it -Bladder: She continues working with the urologist, she may begin Botox treatments -General discussion: We agree on renewing all of her medications today and making no changes and reverting to shorter interval follow-ups given multiple recent issues and when things are going well without any problem we will plan 90-day follow-ups rather than 6-month follow-ups. December 03, 2022: For the most part, she continues to do well on Emgality monthly autoinjector for migraines, clonazepam 0.75 mg at bedtime, quetiapine 75 mg at bedtime and mirtazapine 30 mg at bedtime for behavioral issues the addition of melatonin 9 mg at night for sleep. Her daughter has noted that the dreams seem to be more vivid when Emgality is wearing off. I do not know that there is a direct correlation although I wonder if she is having unreported migraines with a wearing off effect in the final week. She occasionally has some excessive daytime sleepiness. We decided not to make any changes in the exception her daughter may try giving her melatonin 6 mg instead of 9 mg if she is sleeping well through the night and has excessive daytime sleepiness (or alternatively to 25 mg tablets of quetiapine instead of 3) but I do not suggest this in the final week of Emgality wearing off he is probably having some difficulty with sleep by the description. We decided on a 6-month follow-up as she was also doing well at her last follow-up 3 months ago and no changes were made. August 14, 2022: Currently, she is doing well, sleeping is improved on clonazepam 0.75 mg, increased from 0.5 mg at her last visit. She continues Seroquel 75 mg nightly and mirtazapine 30 mg daily. Headaches are well controlled on Emgality. We will not make any changes today. July 09, 2022: Behavior and REM sleep disorder have worsened. This emerged about a month after reducing clonazepam to 1 mg nightly to 0.5 mg nightly. Her daughter is concerned that her dementia has worsened. Seroquel has been increased since her last visit from two 25 mg nightly to three 25 mg nightly now without side effect of dizziness but no improvement. Previously, clonazepam 0.75 mg helped and there is no improvement on 1 mg. We will increase current clonazepam from 0.5 mg to 0.75 mg. She has had some somnolence and possibly dizziness associated with Seroquel (may have also been related to her nonneurologic medications) but is now tolerating the 75 mg nightly. --March 05, 2022: Excellent effect with trial of Emgality for migraine. She has not experienced any side effects nor any constipation February 05, 2022 discussion --Office trial of Emgality sample with loading dose. --Daughter unable to find mirtazapine that pharmacy records as dispensed. Extra prescription sent to a different pharmacy to use [facility]. January 29, 2022 discussion Sleep was improved at her January 01, 2022 follow-up appointment on mirtazapine 30 mg, quetiapine 50 mg nightly 3 tablets of melatonin with some nocturnal awakening playing with her dolls but no longer pulling at her hair. She is also currently on clonazepam 1 mg every evening which we will consider reducing at a future visit. January 01, 2022 follow-up was notable for ongoing left-sided headaches and for constipation. -- Discrepancy of Aimovig dose --Severe constipation to see GI --Reviewed prior constipation on Ajovsherly PREVIOUS ISSUES: 09/11/21: Ongoing worsened mood with crying since June 2021 visits and wanting to sleep 3 or 4 days/week remains the central concern. Mirtazapine 22.5 mg dose has not made much of a difference and nocturnal awakening. She has had the ability to self soothe which patient herself describes. Her daughter Mary had noted a slight improvement on the 7.5 mg dose of mirtazapine which was started in Feb 28 2021 without significant improvement with recent dose adjustment and 7.5 mg increments. We cannot exclude a paradoxical reaction with current evidence of partial benefit at lower dose 7 .5 mg but worsening at 15 mg. There is no clear worsening at 22.5 mg and so we have opted for an increase to 30 mg but if no clear improvement then we will consider slow dose reductions back to 7.5 mg which was the last dose at which she had clear improvement. 2018: She has had confusion on the phone that made her anxious. This likely relates to worsening cognition expressive aphasia may emerge and it usually comes first over the telephone, later person to person. The daughter validates this, there has been a little of this talking between patient and daughter, but not nearly as much as on the telephone. I counseled her to have people she wants to talk with on the telephone come visit, if possible and to minimize telephone talking. Perhaps this is why these events are not an issue anymore. 2017: There was a nonspecific 15 minute episodes November 01, 2016 with right face droop and right chest pain. [facility] could find no stroke or heart attack evidence. She is on aspirin. I do not think further medication change or investigation is needed. Previous discussions from February 2016 or before: I explained that the problems on the telephone relate to reduced capability to communicate over the telephone, which is harder for people with dementia than talking [id number]. Previously: Management pathway for choosing Aimovig as headache medication: --There is contraindication of Topamax (age) and propranolol (hypotension issues) regimen and age. --Amitriptyline has been discontinued by primary care earlier in 2020 with no effect on headaches. There did not seem to be any correlation and time with her onset of depression, either. The 25 mg dose was too small to have any likely effect on mood in any case. BILLING: Discussion across issues of diagnoses and management and same day associated chart review and management greater than 50% greater than 40 minutes Chronic illness posing threat to bodily function including driving, drug therapy requiring intensive monitoring for toxicity mrossen Not available 05/05/2025 14:21:06 Reason for Referral None Reported. Problems Name Problem SNOMED Code Status Onset Date Resolution Date Notes Provider Name and Address Organization Details Recorded Time Alzheimer 's disease 28056645 Active 021 Not Available [facility] 4 14:34:47 Lewy body disease 45038120 Active 021 Not Available [facility] 4 14:34:47 Notes:Some problems listed i n Documents: #[id number], #[id number], #[id number], #[id number], #[id number], #[id number] could not be added to this patient's chart. Please review these documents and add these problems to the patient's chart manually as needed. Problem Notes None recorded. Procedures Surgical History Date Name Laterality Status Provider Name and Address Organization Details Recorded Time 05/05/2025 DATA REVIEW completed Fox Molina MD [address] [place] [address] [place], [phone], [facility] 05/05/2025 14:21:06 12/09/2024 DATA REVIEW completed Fox Molina MD [address] [place] [address] [place], [phone], [facility] 12/09/2024 11:11:14 06/01/2024 DATA REVIEW completed Fox Molina MD [address] [facility] [address], [place], [phone], [facility] 06/01/2024 13:18:26 02/10/2024 DATA REVIEW completed JANI DIAS PA-C [address] [facility] [address], [place], [phone], [facility] 02/10/2024 12:10:51 12/17/2023 DATA REVIEW completed JANI DIAS PA-C [address] [facility] [address], [place], [phone], [facility] 12/17/2023 11:33:31 11/19/2023 DATA REVIEW completed JANI DIAS PA-C [address] [facility] [address], [place], [address], [facility] 11/19/2023 13:10:51 11/05/2023 DATA REVIEW completed ADARSH BURGOS [facility], [place], [address], [facility] 11/05/2023 09:12:27 08/05/2023 DATA REVIEW completed ADARSH BURGOS [facility], [place], [address], [facility] 08/05/2023 09:22:13 07/02/2023 DATA REVIEW completed ADARSH BURGOS [facility], [place], [phone], [facility] 07/02/2023 09:49:18 12/03/2022 DATA REVIEW completed ADARSH BURGOS [facility] [address], [place], [address], [facility] 12/03/2022 10:17:36 08/14/2022 DATA REVIEW completed ADARSH BURGOS [facility] [address], [place], [address], [facility] 08/14/2022 16:55:53 07/10/2022 DATA REVIEW completed ADARSH BURGOS [facility], [place], [phone], [facility] 07/10/2022 11:02:41 04/30/2022 DATA REVIEW completed JANI DIAS PA-C [address] [facility] [address], [place], [phone], [facility] 04/30/2022 10:19:28 03/05/2022 DATA REVIEW completed ADARSH BURGOS [facility] [address], [place], [phone], [facility] 03/05/2022 11:04:10 02/05/2022 DATA REVIEW completed JANI DIAS PA-C [address] [facility] [address], [place], [phone], [facility] 02/05/2022 10:31:38 01/29/2022 DATA REVIEW completed ADARSH BURGOS [facility], [place], [address], [facility] 01/29/2022 13:08:34 01/01/2022 DATA REVIEW completed ADARSH BURGOS [facility], [place], [phone], [facility] 01/01/2022 09:05:31 11/01/2021 DATA REVIEW completed ADARSH BURGOS [facility], [place], [address], [facility] 11/01/2021 09:07:02 09/11/2021 DATA REVIEW completed ADARSH BURGOS [facility], [place], [phone], [facility] 09/11/2021 09:28:02 08/09/2021 DATA REVIEW completed ADARSH BURGOS [facility] [address], [place], [phone], [facility] 08/09/2021 10:14:30 08/08/2021 DATA REVIEW completed Fox Molina MD [address] [place] [address] [place], [phone], [facility] 08/08/2021 10:06:54 07/11/2021 DATA REVIEW completed Fox Molina MD [address] [place] [address] [place], [phone], [facility] 07/11/2021 08:08:17 06/12/2021 DATA REVIEW completed Fox Molina MD [address] [place] [address] [place], [phone], [facility] [employer] [facility] 06/12/2021 08:05:55 02/28/2021 DATA REVIEW completed Fox Molina MD [address] [place] [address] [place], [phone], [facility] 02/28/2021 15:25:57 Imaging Results None recorded. Procedure Notes None recorded. Medical Equipment None Reported. Medications Name Sig Start Date Stop Date Status Note LastModified by Organization Details LastModified Time vitamin d3 125 mcg (5000 ut) caps active Not Available Not Available Not Available vitamin d3 5000 iu softgels 50 TAKE 1 CAPSULE BY MOUTH EVERY DAY active Not Available Not Available No t Available quetiapin e 25 mg tablet TAKE 3 TABLETS BY MOUTH EVERY DAY AT BEDTIME and 1 tablet as needed 2pm 2024 active Not Available Not Available Not Avai betsy tolterodi ne ER 2 mg capsule,e xtended release 24 hr TAKE 1 CAPSULE BY MOUTH EVERY DAY active Not Available Not Available No t Available latanopro st 0.005 % eye drops INSTILL 1 DROP INTO BOTH EYES AT BEDTIME active Not Available Not Available No t Available rabeprazo le 20 mg tablet,de layed release TAKE 1 TABLET BY MOUTH TWICE A DAY active Not Available Not Available No t Available donepezil 5 mg tablet TAKE 1 TABLET BY MOUTH EVERY DAY active Not Available Not Available No t Available oxybutyni n chloride ER 10 mg tablet,ex tended release 24 hr TAKE 1 TABLET BY MOUTH EVERY DAY active Not Available Not Available No t Available azithromy george 250 mg tablet TAKE 2 TABLETS BY MOUTH TODAY, THEN TAKE 1 TABLET DAILY FOR 4 DAYS active Not Available Not Available No t Available ofloxacin 0.3 % eye drops PLEASE SEE ATTACHED FOR DETAILED DIRECTIO NS active Not Available Not Available No t Available simethico ne 180 mg capsule TAKE 1 CAPSULE BY MOUTH FOUR TIMES A DAY active Not Available Not Available No t Available tolterodi ne ER 4 mg capsule,e xtended release 24 hr TAKE 1 CAPSULE BY MOUTH EVERY DAY FOR BLADDER SPASM active Not Available Not Available No t Available donepezil 10 mg tablet TAKE 1 TABLET BY MOUTH EVERYDAY AT BEDTIME 12/09 completed dizzines s may 2024 Not Available Not Available Not Available sucralfat e 1 gram tablet TAKE 1 TABLET BY MOUTH THREE TIMES A DAY FOR 15 DAYS active Not Available Not Available No t Available FreeStyle Lancets 28 gauge USE 1 LANCET 5 TIMES DAILY NEEDED FOR SENSOR FAILURE TO CONFIRM GLUCOSE active Not Available Not Available No t Available clonazepa m 0.5 mg tablet TAKE 1 AND 1/2 TABLETS EVERY DAY BY ORAL ROUTE AT BEDTIME FOR 90 DAYS, FOR MOOD CONTROL. active Not Available Not Available No t Available clonazepa m 1 mg tablet TAKE 1 TABLET BY MOUTH EVERYDAY AT BEDTIME active Not Available Not Available No t Available clotrimaz ole 1 % vaginal cream INSERT 1 APPLICAT ORFUL VAGINALL Y AT BEDTIME FOR 7 NIGHTS active Not Available Not Available No t Available melatonin 3 mg tablet TAKE 3 TABLETS BY MOUTH 2 HOURS BEFORE SLEEP active Not Available Not Available No t Available sulfameth oxazole 800 mg-trimet hoprim 160 mg tablet PLEASE SEE ATTACHED FOR DETAILED DIRECTIO NS active Not Available Not Available No t Available aspirin 81 mg tablet,de layed release TAKE 1 TABLET BY MOUTH EVERY DAY active Not Available Not Available No t Available tramadol 50 mg tablet TAKE 1 TABLET 1 TO 2 TIMES NEEDED FOR PAIN ORALLY 30 DAYS active Not Available Not Available No t Available ketorolac 0.5 % eye drops PLEASE SEE ATTACHED FOR DETAILED DIRECTIO NS active Not Available Not Available No t Available hydrocort isone 2.5 % topical cream with perineal applicato r 1 APPLICAT ION THREE TIMES A DAY RECTAL 30 DAY(S) active Not Available Not Available No t Available prednisol one acetate 1 % eye drops,manasa pension INSTILL 1 DROP IN LEFT EYE FOUR TIMES A DAY 1 WEEK PRIOR TO SURGERY, STOP WHEN DIRECTED BY PROVIDER active Not Available Not Available No t Available magnesium oxide 400 mg (241.3 mg magnesium ) tablet TAKE 1 TABLET BY MOUTH AT BEDTIME active Not Available Not Available No t Available metoclopr amide 5 mg tablet TAKE 1 TABLET BY MOUTH FOUR TIMES A DAY active Not Available Not Available No t Available [employer] Ultra Test strips USE TO TEST 4 TIMES DAILY FOR SENSOR FAILURE OR TO CONFIRM SENSOR READING active Not Available Not Available No t Available amitripty line 10 mg tablet TAKE 2 TABLETS BY MOUTH AT BEDTIME active Not Available Not Available No t Available phenazopy ridine 100 mg tablet TAKE 1 TABLET BY MOUTH TWICE A DAY FOR 2 DAYS WITH FOOD active Not Available Not Available No t Available benzonata te 100 mg capsule TAKE 1 CAPSULE BY MOUTH 3 TIMES A DAY NEEDED FOR COUGH active Not Available Not Available No t Available cephalexi n 500 mg capsule TAKE 1 CAPSULE BY MOUTH THREE TIMES A DAY FOR 7 DAYS active Not Available Not Available No t Available pantopraz ole 40 mg tablet,de layed release TAKE 1 TABLET BY MOUTH TWICE A DAY active Not Available Not Available No t Available mirtazapi ne 30 mg tablet TAKE 1 TABLET BY MOUTH EVERY EVENING 1 HOUR BEFORE BEDTIME 2024 active Not Available Not Available Not Avai lable levothyro xine 125 mcg tablet TAKE 1 TABLET BY MOUTH DAILY EVERY MORNING active Not Available Not Available No t Available nitrofura ntoin macrocrys asim 100 mg capsule TAKE 1 CAPSULE BY MOUTH TWICE A DAY WITH MEALS OR FOOD FOR 7 DAYS active Not Available Not Available No t Available nystatin 100,000 unit/gram topical cream APPLY TO AFFECTED AREA TOPICALL Y 4 TIMES A DAY active Not Available Not Available No t Available clotrimaz ole-betam ethasone 1 %-0.05 % topical cream APPLY TO AFFECTED AREA NEEDED active Not Available Not Available No t Available brimonidi ne 0.2 % eye drops INSTILL 1 DROP INTO LEFT EYE TWICE A DAY active Not Available Not Available No t Available Gas Relief Extra Strength 125 mg capsule TAKE 1 TABLET AFTER MEALS AND AT BEDTIME NEEDED 30 active Not Available Not Available No t Available betametha sone dipropion ate 0.05 % topical cream APPLY 1 APPLICAT ION TOPICALL Y TO AFFECTED AREA ONCE A DAY active Not Available Not Available No t Available docusate sodium 100 mg capsule TAKE 2 CAPSULES BY MOUTH TWICE A DAY active Not Available Not Available No t Available gabapenti n 300 mg capsule TAKE 1 CAPSULE BY MOUTH 3 TIMES A DAY FOR 30 DAYS active Not Available Not Available No t Available dorzolami de 22.3 mg-timolo l 6.8 mg/mL eye drops INSTILL 1 DROP INTO BOTH EYES TWICE A DAY active Not Available Not Available No t Available hydroxyzi ne HCl 25 mg tablet TAKE 1 TABLET ORALLY 3 TIMES A DAY NEEDED FOR FOR ITCH active Not Available Not Available No t Available mupirocin 2 % topical ointment APPLY TWICE A DAY TO SURGICAL SITE FOR 7-14 DAYS OR UNTIL FULLY HEALED active Not Available Not Available No t Available diclofena c sodium 50 mg tablet,de layed release TAKE 1 TABLET BY MOUTH TWICE A DAY FOR 7 DAYS active Not Available Not Available No t Available mirtazapi ne 15 mg tablet TAKE 1 TABLET EVERY DAY BY ORAL ROUTE IN THE EVENING FOR 30 DAYS. 11/01 completed now on 30mg Not Available Not Available Not Available insulin lispro (U-100) 100 unit/mL subcutane ous solution INJECT 0 - 76 UNIT (0 - 0.76 ML) SUBCUTAN EOUSLY DAILY active Not Available Not Available No t Available levofloxa george 500 mg tablet TAKE 1 TABLET BY MOUTH EVERY DAY FOR 7 DAYS active Not Available Not Available No t Available scopolami ne 1 mg over 3 days transderm al patch APPLY 1 PATCH TRANSDER MAL EVERY 3 DAYS NEEDED FOR DIZZINES S active Not Available Not Available No t Available ondansetr on 4 mg disintegr ating tablet DISSOLVE 1 TABLET BY MOUTH EVERY 8 HOURS NEEDED FOR NAUSEA AND VOMITING FOR 15 DAYS active Not Available Not Available No t Available fluoxetin e 20 mg capsule TAKE 1 CAPSULE BY MOUTH TWICE A DAY active Not Available Not Available No t Available fluticaso ne propionat e 50 mcg/actua tion nasal spray,manasa pension SPRAY 2 SPRAYS NASALLY EVERY DAY NEEDED FOR CONGESTI ON active Not Available Not Available No t Available fludrocor tisone 0.1 mg tablet TAKE 1 TABLET BY MOUTH TWICE A DAY active Not Available Not Available No t Available cholecalc iferol (vitamin D3) 125 mcg (5,000 unit) capsule TAKE 1 CAPSULE BY MOUTH EVERY DAY active Not Available Not Available No t Available doxycycli ne hyclate 100 mg tablet TAKE 1 TABLET BY MOUTH TWICE A DAY FOR 10 DAYS active Not Available Not Available No t Available metoclopr amide 10 mg tablet TAKE 1 TABLET AT BREAKFAS T, 2 TABLETS ORALLY AT NOON, 1 TABLET AT SUPPER, AND 1 TABLET AT BEDTIME active Not Available Not Available No t Available neomycin 3.5 mg/g-poly myxin B 10,000 unit/g-de xameth 0.1 % eye oint APPLY A SMALL AMOUNT INTO AFFECTED EYE 4 TIMES A DAY active Not Available Not Available No t Available Laxative (bisacody l) 5 mg tablet,de layed release TAKE 2 TABLETS (10 MG) ORALLY BEDTIME active Not Available Not Available No t Available midodrine 10 mg tablet TAKE 1 TABLET BY MOUTH THREE TIMES A DAY active Not Available Not Available No t Available moxifloxa george 0.5 % eye drops INSTILL 1 DROP INTO LEFT EYE 4 TIMES A DAY active Not Available Not Available No t Available rosuvasta tin 40 mg tablet TAKE 1 TABLET BY MOUTH EVERY DAY active Not Available Not Available No t Available Fiber Therapy (methylce llulose) 500 mg tablet TAKE 2 TABLETS BY MOUTH EVERY DAY NEEDED FOR CONSTIPA TION active Not Available Not Available No t Available mirtazapi ne 7.5 mg tablet TAKE 3 TABLET (22.5mg) EVERY EVENING 1 HOUR BEFORE BEDTIME 11/01 completed now on 30mg Not Available Not Available Not Available nitrofura ntoin monohydra te/macroc rystals 100 mg capsule TAKE 1 CAPSULE BY MOUTH TWICE A DAY FOR 7 DAYS WITH A MEAL/RICARDA D active Not Available Not Available No t Available Lantus Solostar U-100 Insulin 100 unit/mL (3 mL) subcutane ous pen INJECT 9 UNIT (0.09 ML) SUBCUTAN EOUSLY EVERY EVENING NEEDED FOR PUMP FAILURE FOR 30 DAYS active Not Available Not Available No t Available GaviLyte- G 236 gram-22.7 4 gram-6.74 gram-5.86 gram oral solution PLEASE SEE ATTACHED FOR DETAILED DIRECTIO NS active Not Available Not Available No t Available Omnipod Classic Pods (Gen 3) subcutane ous cartridge USE ONE SUBCUTAN EOUSLY EVERY 3 DAYS. active Not Available Not Available No t Available Myrbetriq 50 mg tablet,ex tended release TAKE 1 TABLET BY MOUTH EVERY DAY active Not Available Not Available No t Available Trulicity 1.5 mg/0.5 mL subcutane ous pen injector INJECT 1.5 MG (0.5 ML) SUBCUTAN EOUSLY EVERY WEEK active Not Available Not Available No t Available Trulicity 0.75 mg/0.5 mL subcutane ous pen injector INJECT 0.5 ML UNDER THE SKIN EVERY WEEK FOR 28 DAYS active Not Available Not Available No t Available Xiidra 5 % eye drops in a dropperet te INSTILL 1 DROP INTO BOTH EYES TWICE A DAY active Not Available Not Available No t Available Probiotic Acidophil us 250 million cell capsule 1 CAP ORALLY DAILY DO NOT CRUSH/CH EW/CUT SWALLOW WHOLE OR MAY OPEN AND SPRINKLE IN COLD DRINK/FO OD active Not Available Not Available No t Available Trulance 3 mg tablet TAKE 1 TABLET BY MOUTH EVERY DAY active Not Available Not Available No t Available BD Ultra-Fin e Micro Pen Needle 32 gauge x 1/4 DIRECTED INJECTS 4 TIMES A DAY active Not Available Not Available No t Available Vyzulta 0.024 % eye drops INSTILL 1 DROP INTO LEFT EYE EVERY NIGHT active Not Available Not Available No t Available Rhopressa 0.02 % eye drops INSTILL 1 DROP INTO BOTH EYES AT BEDTIME active Not Available Not Available No t Available Aimovig Autoinjec tor 70 mg/mL subcutane ous auto-inje ctor Inject subcutan eously once a month into upper arm, thigh or hip 01/29 completed Not Available Not Available Not Available Omnipod Dash Pods (Gen 4) subcutane ous cartridge DIRECTED active Not Available Not Available No t Available Emgality Pen 120 mg/mL subcutane ous pen injector INJECT 1 ML SUBCUTAN EOUSLY EVERY MONTH FOR 30 DAYS 02/09 completed Not Available Not Available Not Available Aimovig Autoinjec tor 140 mg/mL subcutane ous auto-inje ctor Inject 1 mL every month by subcutan eous route. 10/22 completed On hold, reports last dose of the 70mg on 01/09/22 (this is diferent then pharmacy record), will come to office for trial of differen t CGRP inhibito r d/t side effect Not Available Not Available Not Available Rocklatan 0.02 %-0.005 % eye drops INSTILL 1 DROP INTO BOTH EYES AT BEDTIME active Not Available Not Available No t Available OneTouch Ultra2 Meter DISPENSE ONE TOUCH ULTRA TO GO WITH ONE TOUCH ULTRA STRIPS active Not Available Not Available No t Available OneTouch Delica Plus Lancet 30 gauge USE DIRECTED 4 TIMES A DAY active Not Available Not Available No t Available Gemtesa 75 mg tablet TAKE 1 TABLET BY MOUTH EVERY DAY active Not Available Not Available No t Available Qulipta 60 mg tablet active Not Available Not Available Not Available Qulipta 30 mg tablet TAKE 1 TABLET EVERY DAY BY ORAL ROUTE FOR 30 DAYS, FOR MIGRAINE PREVENTI ON. active Not Available Not Available No t Available Flowflex COVID-19 Antigen Home Test kit USE DIRECTED active Not Available Not Available No t Available Omnipod 5 G6 Pods (Gen 5) subcutane ous cartridge USE DIRECTED active Not Available Not Available No t Available Omnipod 5 G6 Intro Kit (Gen 5) subcutane ous cartridge with controlle r DIRECTED active Not Available Not Available No t Available Dexcom G7 Sensor device CHANGE EVERY 10 DAYS active Not Available Not Available No t Available Omnipod 5 G6-G7 Pods (Gen 5) subcutane ous cartridge CHANGE DIRECTED EVERY 3 DAYS active Not Available Not Available No t Available Vitals None Recorded Social History None recorded. Functional Status None recorded. Mental Status None recorded. Family History Nothing Reported. Medical History No medical history recorded. Gynecological HistoryNo gynecological history recorded. Obstetrics History GPAL:G 0 P 0 0 0 0 Past Encounters Encounter ID Performer Location Encounter Start Date Encounter Closed Date Diagnosis/Indication Diagnosis SNOMED-CT Code Diagnosis ICD10 Code Diagnosis IMO Codes Diagnosis Note [id number] Fox Molina MD [facility] [address] [place] [address] [place] [address] 02/28/2021 15:05:01 03/01/2021 07:30:46 Alzheimer's disease 34355783 G30.9 Lewy body dementia with behavioral disturbance [id number] 19107 G31.83 Behavioral variant of frontotemporal dementia 052878441 G31.09 Multiple s ystem atrophy 950883455 G90.3 [id number] Fox Molina MD [facility] [address] [place] [address] [place] [address] 06/12/2021 07:57:54 06/12/2021 08:43:46 Alzheimer's disease 98403849 G30.9 Lewy body dementia with behavioral disturbance [id number] 07797 G31.83 Behavioral variant of frontotemporal dementia 321210584 G31.09 Multiple s ystem atrophy 722445135 G90.3 [id number] Fox Molina MD [facility] [address] [place] [address] [place] [address] 07/11/2021 07:57:57 07/11/2021 08:44:09 Alzheimer's disease 35362714 G30.9 Lewy body dementia with behavioral disturbance [id number] 78804 G31.83 Behavioral variant of frontotemporal dementia 519784171 G31.09 Multiple s ystem atrophy 664895160 G90.3 [id number] Fox Molina MD [facility] [address] [place] [address] [place] [address] 08/08/2021 09:18:20 08/08/2021 11:39:13 Alzheimer's disease 11125465 G30.9 Lewy body dementia with behavioral disturbance [id number] 17334 G31.83 Behavioral variant of frontotemporal dementia 088383170 G31.09 Multiple s ystem atrophy 652996178 G90.3 [id number] JANI DIAS PA-C [facility] [address] [place] [address] [place] [address] 08/09/2021 10:10:26 08/14/2021 13:29:21 Alzheimer's disease 85454032 G30.9 Lewy body dementia with behavioral disturbance 1431160780 37688 G31.83 Behavioral variant of frontotemporal dementia 691271604 G31.09 Multiple s ystem atrophy 979371691 G90.3 [id number] AJNI DIAS PA-C [facility] [address] [place] [address] [place] [address] 09/11/2021 08:57:08 09/12/2021 14:59:00 Alzheimer's disease 24342915 G30.9 Lewy body dementia with behavioral disturbance 8661736322 14855 G31.83 Behavioral variant of frontotemporal dementia 898087476 G31.09 Multiple s ystem atrophy 280081158 G90.3 3561 JANI DIAS PA-C [facility] [address] [place] [address] [place] [address] 11/01/2021 08:59:15 11/08/2021 11:38:57 Alzheimer's disease 53379360 G30.9 Lewy body dementia with behavioral disturbance [id number] 08952 G31.83 Behavioral variant of frontotemporal dementia 493560387 G31.09 Multiple s ystem atrophy 040711808 G90.3 Migraine without aura 56 410858 G43.009 4401 JANI DIAS [facility] [address] [place], [place] [address] [address] 01/01/2022 08:57:02 01/02/2022 07:46:07 Alzheimer's disease 54006662 G30.9 Lewy body dementia with behavioral disturbance 2042694767 32166 G31.83 Behavioral variant of frontotemporal dementia 673369469 G31.09 Multiple s ystem atrophy 471983215 G90.3 Migraine without aura 56 597445 G43.009 [id number] JANI DIAS [facility] [address] [place] [address] 4 01/29/2022 13:01:52 02/01/2022 13:23:01 Alzheimer's disease 44154643 G30.9 Lewy body dementia with behavioral disturbance 7315630918 05226 G31.83 Behavioral variant of frontotemporal dementia 384475546 G31.09 Multiple s ystem atrophy 268500653 G90.3 Migraine without aura 56 997162 G43.009 4835 JANI DIAS [facility] [address] [place] [address] 4 02/05/2022 09:49:11 02/07/2022 10:38:23 Alzheimer's disease 80960355 G30.9 Lewy body dementia with behavioral disturbance 5086560823 63459 G31.83 Behavioral variant of frontotemporal dementia 445209809 G31.09 Multiple s ystem atrophy 321929180 G90.3 Migraine without aura 56 640777 G43.009 5162 JANI DIAS [facility] [address] [place] [address] 4 03/05/2022 10:57:47 03/21/2022 16:41:37 Alzheimer's disease 60951591 G30.9 Lewy body dementia with behavioral disturbance 1443015640 07030 G31.83 Behavioral variant of frontotemporal dementia 216023185 G31.09 Multiple s ystem atrophy 570754476 G90.3 Migraine without aura 56 229863 G43.009 5876 [facility] [address] [place] [address] [place] [address] 4 04/30/2022 10:02:22 05/02/2022 13:58:29 Alzheimer's disease 29195450 G30.9 Lewy body dementia with behavioral disturbance 1593462085 58842 G31.83 Behavioral variant of frontotemporal dementia 793481360 G31.09 Multiple s ystem atrophy 289344750 G90.3 Migraine without aura 56 665676 G43.009 6580 [facility] [address] [place], [place] [address] [address] 4 07/10/2022 10:04:31 07/15/2022 09:00:19 Alzheimer's disease 78160920 G30.9 Lewy body dementia with behavioral disturbance 9414858573 85011 G31.83 Behavioral variant of frontotemporal dementia 948234755 G31.09 Multiple s ystem atrophy 121592803 G90.3 Migraine without aura 56 348356 G43.009 6895 [facility] [address] [place] [address] 4 08/14/2022 15:36:04 08/15/2022 09:48:28 Alzheimer's disease 08478573 G30.9 Lewy body dementia with behavioral disturbance 3245240370 50498 G31.83 Behavioral variant of frontotemporal dementia 122584439 G31.09 Multiple s ystem atrophy 537639177 G90.3 Migraine without aura 56 531655 G43.009 7887 [facility] [address] [place] [address] [place] [address] 4 12/03/2022 10:05:29 12/10/2022 09:20:46 Alzheimer's disease 87311685 G30.9 Lewy body dementia with behavioral disturbance 2941273198 52827 G31.83 Behavioral variant of frontotemporal dementia 407780649 G31.09 Multiple s ystem atrophy 029637909 G90.3 Migraine without aura 56 313749 G43.009 [id number] JANI DIAS PA-C [facility] [address] [place] [address] [place] [address] 4 07/02/2023 09:31:33 07/08/2023 11:34:38 Alzheimer's disease 25071068 G30.9 Lewy body dementia with behavioral disturbance 5840730949 90928 G31.83 Behavioral variant of frontotemporal dementia 920880472 G31.09 Multiple s ystem atrophy 802105362 G90.3 Migraine without aura 56 747599 G43.009 [id number] JANI DIAS PA-C [facility] [address] [place] [address] [place] [address] 4 08/05/2023 08:42:48 08/07/2023 10:11:23 Alzheimer's disease 94151215 G30.9 Lewy body dementia with behavioral disturbance 0429810126 19107 G31.83 Behavioral variant of frontotemporal dementia 080983864 G31.09 Multiple s ystem atrophy 248692753 G90.3 Migraine without aura 56 176456 G43.009 [id number] JANI DIAS PA-C [facility] [address] [place] [address] [place] [address] 4 11/05/2023 08:58:31 11/06/2023 09:28:57 Alzheimer's disease 52616316 G30.9 Lewy body dementia with behavioral disturbance 2313793454 19107 G31.83 Behavioral variant of frontotemporal dementia 055814819 G31.09 Multiple s ystem atrophy 988715278 G90.3 Migraine without aura 56 210658 G43.009 31349 JANI DIAS PA-C [facility] [address] [place] [address] [place] [address] 4 11/19/2023 13:10:10 11/24/2023 16:03:46 Alzheimer's disease 84523623 G30.9 Lewy body dementia with behavioral disturbance 4514513917 49104 G31.83 Behavioral variant of frontotemporal dementia 545912551 G31.09 Multiple s ystem atrophy 828328535 G90.3 Migraine without aura 56 312504 G43.009 [id number] JANI DIAS PA-C [facility] [address] [place] [address] [place] [address] 4 12/17/2023 11:02:34 12/18/2023 08:45:33 Alzheimer's disease 64907984 G30.9 Lewy body dementia with behavioral disturbance 8948910061 72757 G31.83 Behavioral variant of frontotemporal dementia 200123178 G31.09 Multiple s ystem atrophy 342948922 G90.3 Migraine without aura 56 705115 G43.009 [id number] JANI DIAS PA-C [facility] [address] [place] [address] [place] [address] 4 02/10/2024 11:05:46 02/18/2024 10:56:01 Alzheimer's disease 45439826 G30.9 Lewy body dementia with behavioral disturbance 0965033973 G31.83 Behavioral variant of frontotemporal dementia 971689043 G31.09 Multiple s ystem atrophy 751640877 G90.3 Migraine without aura 56 338198 G43.009 [id number] Fox Molina MD [facility] [address] [place] [address] [place] [address] 4 06/01/2024 12:42:16 06/01/2024 17:31:56 Alzheimer's disease 61093760 G30.9 Lewy body dementia with behavioral disturbance 5671138481 71748 G31.83 Behavioral variant of frontotemporal dementia 529241483 G31.09 Multiple s ystem atrophy 516823645 G90.3 Migraine without aura 56 730646 G43.009 [id number] Fox Molina MD [facility] [address] [place] [address] [place] [address] 4 12/09/2024 10:33:46 12/09/2024 11:57:37 Alzheimer's disease 53422780 G30.9 Lewy body dementia with behavioral disturbance 1554947730 36000 G31.83 Behavioral variant of frontotemporal dementia 570135682 G31.09 Multiple s ystem atrophy 008491689 G90.3 Migraine without aura 56 702441 G43.009 [id number] Fox Molina MD [facility] [address] [place] [address] [place] [address] 4 05/05/2025 13:41:05 05/07/2025 15:38:29 Alzheimer's disease 95019178 G30.9 Lewy body dementia with behavioral disturbance 9592099968 16816 G31.83 Behavioral variant of frontotemporal dementia 023772648 G31.09 Multiple s ystem atrophy 419229064 G90.3 Migraine without aura 56 219532 G43.009 Health Concerns Section Related Observation LastModified by Organization Detai ls LastModified Time None Recorded Concern Status LastModified by Organization Details LastModified Time None Recorded Advance Directives Directive None Recorded Payers Insurance Date Sequence Insurance Name Policy Number Policy Ruano Covered Member ID Ruano Member ID Guarantor Name 05/07/2025 1 [facility] [place] - [place]PLAC[place] [facility] Debo Krause [id number] Debo Krause 08/15/2022 2 [place] [facility] Debo Krause [id number] Debo Krause 08/15/2022 2 [facility] (MEDICARE REPLACEMENT/ ADVANTAGE - HMO) Debo Krause [id number] Debo Krause Notes Date Note Type Note Provider Name and Address Organization Details Recorded Time 4 text/html Follow-up for headache and for degenerative dementia presenting with early September 2014 onset of worsening cognitive dysfunction, gait impairment, shaking, and hallucination. She is accompanied by 1 of her 2 daughters, Mary the oldest, who provided the bulk of the history and is her city plant supervisor and administer of her pills. The other daughter was not present. >>>>>>>>>>>> December 17, 2023Since November 19 2023 neurology follow-up, she has been back to her maintenance trainer and it is confirmed that she does have likely skin cancer on the left side of her scalp. She had this about 2 years ago and it was removed but has come back. Her daughter says that the maintenance trainer advised that she tell us about the left-sided headaches she has been getting. These are going on daily and dominate on the left side. She will be seeing another specialist to have it removed to make sure that it is not going into the head and then there will be a biopsy.She has also been getting a lot of dizziness, particularly when bending over.Her daughter is continuing the Seroquel three 25 mg tablets at night and has shifted the afternoon time to 2 PM. This is helping with the behavioral issues that were emerging in the late afternoon and she is not having excessive sleepiness. >>>>>>>>>>>>November 19 2023Since November 05, 2023 neurology follow-up 2 weeks ago, she held Emgality which was due the next day on the . She says that she is doing well. Her daughter says it has been good and then she says that regarding headaches, is n ot that much like before . Before, they relate every day now, she is having them about 3 times per week. I clarify if she means every day while she was on Emgality and she says yes.There have been some episodes of screaming agitation in the late afternoon described since 2022: We had talked about additional quetiapine 1 to 2 hours before the episodes, according to her daughter she has had it in the late afternoon and tolerated it but she also says that she was waiting for this follow-up to decide whether to give it to her earlier.She has also been to the maintenance trainer and her daughter has not told her but tells me that she may have skin C*A*N*C*E*R (she spells the word in [place]) and wonders if this could have anything to do with the headaches. >>>>>>>>>>>>November 05 2023Since July 16 2023 neurology follow-up, she politely tells me that she is doing well and when I ask her about headaches she says that she does not have many. However, her daughter says that sometimes, when she gets mad, she gets them. (We briefly discussed in [place]ian that this makes sense to me because stress can trigger headaches). Her daughter continues to give her three 25 mg quetiapine at night for nocturnal behavior which is helping some but she continues to behavioral issues in the afternoons, now usually most afternoons around 2 or 3 in the afternoon at which time she screams at her and screams at her daughter. Daughter has not tried giving her an additional Seroquel/quetiapine in the early afternoon to see if this improves. At the end of our visit today, her daughter raises a concern: She says that every time she gives her mother the Emgality injection (on the of every month) her arm gets swollen. It started in July or August and it lasts for about 15 minutes. She will go sit down and relax and it improves. Last time, she started massaging the arm and it went away after half an hour. She has not noted any redness or any rash. But, sometimes, she has noted that her mother will say I am swollen and she will go and look and sometimes see that the lip is swollen. >>>>>>>>>>>>August 05t her July 02, 2023 neurology follow-up, she and her daughter reported a number of interval issues (dizziness, nausea, headache, week and a half of behavioral worsening at night). I asked what they would like to focus on today. Her daughter thinks that the is g oing a little more . Some days are fine but on other days, she is screaming and pulling her hair. This is happening mostly in the afternoon, usually 2-3 times per week. I asked if it continues at nighttime which is when she has historically had some trouble. She says it happens in the nighttime a lot. Her daughter says that she can see that she is sleepy and starting to fall asleep but seems to fight it. She continues clonazepam 0.75 mg nightly, quetiapine 25 mg as prescribed 1 to 3 tablets before bedtime but has been taking 3 tablets consistently as well as melatonin 9 mg nightly. She also continues mirtazapine 30 mg nightly and Emgality monthly autoinjector every month on the of the . Ms. Krause herself says that that everything is going well. She denies any difficulty in the afternoon since she says that she goes to the kitchen and sits. She says that she is sleeping well. I asked about her dreams and she said that they are fine and more specifically I asked about night terrors and she says that she does not get them much. >>>>>>>>>>>>July 02 2023Since December 03, 2022 neurology follow-up 7 months ago, she reports that she has been getting dizziness with nausea. This occurs when she is standing and up and about doing things. Her daughter initially denies that there is any association with change in position although she does say it happens when they are getting up and out of the car. Mr. Villafana later mentions that she does get some difficulty when she stands up. It is occurring every day and usually last about 10 minutes. She has not had any falls. She uses her cane when she is outside of the house but she does not use it when she is at home. I have she has been getting headaches associated with the dizzy spells and she says that she has been getting headaches that last about 10 minutes every morning and every afternoon. Sometimes the left eye goes blurry although she has been seeing an holistic specialist for this as well. She continues Emgality 120 mg/mL monthly autoinjector which she does each month on the of the .I asked her daughter if there had been any med changes. She in turn asks her mother if there have been any medication changes. Ms Krause tells her daughter N o (in [place]ian) who in turn translates and says there have not been any medication changes. I asked who is managing the medications and her daughter clearly replies that she is the one who is managing them.I asked about the nighttime behavior. Her daughter says that this is just started up again about a week and a half ago where she started dreaming and screaming at night. She did not have that issue last month when she saw her primary care provider. She has been following with her primary care provider every 3 months.In the context of discussing caution at night with episodes of dizziness with particular caution getting up in the night to go to the bathroom, her daughter notes that she does use a pull-up and that she has been going to a urologist, and she may be having Botox treatment in the future. >>>>>>>>>>>> December 03, 2022Since August 14 2022, she reports that she is doing well. She says that the winter has been good and has been cold. She has been sleeping well. She says that her dreams are good. Mood is good. She is not having much of headache. I asked her specifically how many headaches per week and she again says she is almost not getting any headaches. I asked her daughter if she agrees. She does agree that in general she has been sleeping well and doing well overall. She still has dreams at night. She has noticed a correlation of worsening dreams in the last ~4 days or so before Emgality is due. She initially says her mother has not had any other changes except Trulicity every Friday: We note that she had started this prior to her August 14, 2022 visit. No other changes are new diagnoses.She continues Emgality monthly autoinjection for migraine, clonazepam 0.75 mg at bedtime, quetiapine, now at 3 tablets at bedtime and mirtazapine 30 mg at bedtime for behavioral issues the addition of melatonin 9 mg at bedtime for sleep. There is occasional daytime sleepiness. >>>>>>>>>>>> August 14 2022 neurology follow up reviewed:At her last visit July 10 2022, we focused on degenerative dementia, in particular REM sleep disorder. We had previously reduced clonazepam from 1 mg to 0.5 mg. We have no gone back up to clonazepam 0.75 mg which has been a good dose for her in the past. She says that she is sleeping well. Her daughter agrees that she is doing better on this dose. She also continues Seroquel, three 25 mg tablets which she had increased from 2 tablets over the summer at some point. She has not experienced any dizzy this increase which had been a concern in the past (on her daughter's part, we had concern about other medications at the time). He is mirtazapine 30 mg daily.Migraines also continue to go well on Emgality.She has started taking Trulicity from her field service engineer, Dr. Velazquez, in the interim as her sugars were sometimes high and sometimes low and her hemoglobin A1c was 7.7. She says that they are better now and only sometimes a little high. Silas points from the following interval encountersSe2021-not getting many headaches on Emgality injection today.-Wobbling speech, wobbling tongue-waking up more at night and she has started to pull her hair again. This has been during this last month. It may have gotten a little worse while Mary went on vacation. We had talked about decreasing clonazepam and we 1 mg to 0.5 mg at night she has not further reduced to this.-Her daughter privately asks if her dementia could be progressing (she does not want to use the word dementia in front of Ms. Blevins.) She said that she has been acting strangely lately, especially in the afternoon. April 30, 2022-She is not getting the headaches anymore with the injection (Emgality).-Emgality has been approved until 10/12/2022.-She is sleeping better in general with the addition of the medication that we had increased in the fall (Remeron fall 2020).--Problem is that she ran out of clonazepam 1 week ago and has been off of it. Since then, she is going to bed a little later and getting up a little later. She is still talks and night when she is sleeping. 2021Emgality loading dose on February 05, 2022 in the office has helped a lot without any side effect of constipation. February 05, 2022-Office visit for Emgality trial, ongoing bilateral temporal region headache. Improved constipation-Difficulty with mirtazapine refills (?lost Rx) temporary sent to a different pharmacy to use [facility] January 29 2022--Increased headaches--Increased bowel movements, 2 to 3/day from 1 every 4 to 5 days after seeing GI physician-- Also off of Aimovig as she had difficulty obtaining it As our appointment today was to focus on headache and potential side effects of management, we did not discuss any other issues related to her degenerative dementia that we have been working on recently have been improving in her most recent visits. January 01, 2022-- Sleeping better, not waking up as often, she does sometimes still awaken and playing with her dolls.--Difficulty with obtaining Aimovig 140 mg/mL instead of 70 mg/mL, received 70 mg/mL, ongoing headache--Previously had constipation on Ajovy, constipation contributing to nocturnal awakening--She still gets some dizziness but only when bending over or getting up out of bed. She continues quetiapine 50 mg at night, melatonin 3 tablets, clonazepam 1 mg at night and mirtazapine 30 mg daily. November 01 2021:--Mary reports that she is sleeping better since the increase in the mirtazapine from 22.5 mg to 30 mg daily. She is crying less as well. She still sometimes awakens usually about 3-4 times per week and usually talks in her sleep. She fights with her dolls. She does still sometimes pull out her hair.-- Some ongoing headaches--Mobility: Mary has to run behind her all the time to make sure she does not fall. Presenting symptomatology was reviewed from December 05, 2014 initial consultation: Up through August 2014, the patient was independent, without problems and walking (or running for that matter), cognition,, mood, or in any facet of daily activities. In very early September 2014, her sustained a problem with the nerve in his back that has since severely affected his ability to walk. This did not bother the patient over much. She took it instructed. Shortly after that, still early in September 2014, she began having problems walking as well as problems with mentation. She also had intermittent episodes of tremor. Problems began suddenly but not overnight. She fell and was taken to only hospital. She had diagnostic investigation that included brain MRI. This was unrevealing, per daughter. She was sent to acute rehabilitation and home. She had 2 more falls, and was again hospitalized and sent to acute rehabilitation after her final fall October 12, 2014. She subsequently returned home.In early October 2014, she became incontinent of urine, and soon after that incontinent of feces. There has been worsening of cognition mood and behavior. She is using a walker and with this and close attention by her daughters, there have been no further falls. She repeats herself every few minutes and forgets conversations a few minutes after they happened. She often mumbles. She needs direction for dressing and bathing and sometimes needs complete help in these activities. She is able to feed herself, but often throws her plate on herself or elsewhere when she is finished. She cries a lot. She wakes frequently at night and is convinced that someone is trying to break in. She cannot be redirected and her daughters are losing sleep because of this. Risperdal has been prescribed but this does not seem to help. She has fluctuation so that she has relatively benign symptomatology for about 1-1/2 days and then much worse symptomatology for about 2 days. On good days, and hands shake only with reaching. On bad days, hands and legs shake whether or not she is reaching. Both of her daughters have occasionally seen twitching of her limbs. Fox Molina MD [address] [place] [address] B, [place], [id number], [place] [facility] Neu[facility] 12/17/2023 18:44:50 4 text/html Follow-up for headache and for degenerative dementia presenting with early September 2014 onset of worsening cognitive dysfunction, gait impairment, shaking, and hallucination. She is accompanied by 1 of her 2 daughters, Mary the oldest, who provided the bulk of the history and is her city plant supervisor and administer of her pills. The other daughter was not present. >>>>>>>>>>>>February 10 2024Since December 17, 2023 neurology follow-up she has started Qulipta 30 mg as previously instructed and tells me alphonso quispe (it s good) last visit helping with the headache and with some enthusiasm she says S i me ayuda mucho! (Yes, it helps me a lot). She denies any side effect as does her daughter. her daughter does flush it out a bit, she had increased headaches with the left scalp lesion and then had it removed and biopsied and had significant head pain that did not respond to fpls-inj-xhrqdiq medications but did respond to Qulipta 30 mg. Daughter also reports that she had an A1c done and went up from 5.5-6.2. She continues on clonazepam 0.75 nightly and on quetiapine 75 mg nightly and 1 as needed although she has not needed it in the afternoon recently. There has been less crying at night and now only occurring when she is stressed, about 2-3 times weekly. She continues melatonin 3 tablets nightly and mirtazapine. She also continues donepezil 10 mg. She does have some ongoing episodes of dizziness. >>>>>>>>>>>> December 17, 2023Since November 19 2023 neurology follow-up, she has been back to her maintenance trainer and it is confirmed that she does have likely skin cancer on the left side of her scalp. She had this about 2 years ago and it was removed but has come back. Her daughter says that the maintenance trainer advised that she tell us about the left-sided headaches she has been getting. These are going on daily and dominate on the left side. She will be seeing another specialist to have it removed to make sure that it is not going into the head and then there will be a biopsy.She has also been getting a lot of dizziness, particularly when bending over.Her daughter is continuing the Seroquel three 25 mg tablets at night and has shifted the afternoon time to 2 PM. This is helping with the behavioral issues that were emerging in the late afternoon and she is not having excessive sleepiness. >>>>>>>>>>>>November 19 2023Since November 05, 2023 neurology follow-up 2 weeks ago, she held Emgality which was due the next day on the . She says that she is doing well. Her daughter says it has been good and then she says that regarding headaches, is n ot that much like before . Before, they relate every day now, she is having them about 3 times per week. I clarify if she means every day while she was on Emgality and she says yes.There have been some episodes of screaming agitation in the late afternoon described since 2022: We had talked about additional quetiapine 1 to 2 hours before the episodes, according to her daughter she has had it in the late afternoon and tolerated it but she also says that she was waiting for this follow-up to decide whether to give it to her earlier.She has also been to the maintenance trainer and her daughter has not told her but tells me that she may have skin C*A*N*C*E*R (she spells the word in [place]) and wonders if this could have anything to do with the headaches. >>>>>>>>>>>>November 05 2023Since July 16 2023 neurology follow-up, she politely tells me that she is doing well and when I ask her about headaches she says that she does not have many. However, her daughter says that sometimes, when she gets mad, she gets them. (We briefly discussed in [place] that this makes sense to me because stress can trigger headaches). Her daughter continues to give her three 25 mg quetiapine at night for nocturnal behavior which is helping some but she continues to behavioral issues in the afternoons, now usually most afternoons around 2 or 3 in the afternoon at which time she screams at her and screams at her daughter. Daughter has not tried giving her an additional Seroquel/quetiapine in the early afternoon to see if this improves. At the end of our visit today, her daughter raises a concern: She says that every time she gives her mother the Emgality injection (on the of every month) her arm gets swollen. It started in July or August and it lasts for about 15 minutes. She will go sit down and relax and it improves. Last time, she started massaging the arm and it went away after half an hour. She has not noted any redness or any rash. But, sometimes, she has noted that her mother will say I am swollen and she will go and look and sometimes see that the lip is swollen. >>>>>>>>>>>>August 05t her July 02, 2023 neurology follow-up, she and her daughter reported a number of interval issues (dizziness, nausea, headache, week and a half of behavioral worsening at night). I asked what they would like to focus on today. Her daughter thinks that the is g oing a little more . Some days are fine but on other days, she is screaming and pulling her hair. This is happening mostly in the afternoon, usually 2-3 times per week. I asked if it continues at nighttime which is when she has historically had some trouble. She says it happens in the nighttime a lot. Her daughter says that she can see that she is sleepy and starting to fall asleep but seems to fight it. She continues clonazepam 0.75 mg nightly, quetiapine 25 mg as prescribed 1 to 3 tablets before bedtime but has been taking 3 tablets consistently as well as melatonin 9 mg nightly. She also continues mirtazapine 30 mg nightly and Emgality monthly autoinjector every month on the of the . Ms. Kraues herself says that that everything is going well. She denies any difficulty in the afternoon since she says that she goes to the kitchen and sits. She says that she is sleeping well. I asked about her dreams and she said that they are fine and more specifically I asked about night terrors and she says that she does not get them much. >>>>>>>>>>>>July 02 2023Since December 03, 2022 neurology follow-up 7 months ago, she reports that she has been getting dizziness with nausea. This occurs when she is standing and up and about doing things. Her daughter initially denies that there is any association with change in position although she does say it happens when they are getting up and out of the car. Mr. Villafana later mentions that she does get some difficulty when she stands up. It is occurring every day and usually last about 10 minutes. She has not had any falls. She uses her cane when she is outside of the house but she does not use it when she is at home. I have she has been getting headaches associated with the dizzy spells and she says that she has been getting headaches that last about 10 minutes every morning and every afternoon. Sometimes the left eye goes blurry although she has been seeing an holistic specialist for this as well. She continues Emgality 120 mg/mL monthly autoinjector which she does each month on the of the .I asked her daughter if there had been any med changes. She in turn asks her mother if there have been any medication changes. Ms Krause tells her daughter N o (in [place]ian) who in turn translates and says there have not been any medication changes. I asked who is managing the medications and her daughter clearly replies that she is the one who is managing them.I asked about the nighttime behavior. Her daughter says that this is just started up again about a week and a half ago where she started dreaming and screaming at night. She did not have that issue last month when she saw her primary care provider. She has been following with her primary care provider every 3 months.In the context of discussing caution at night with episodes of dizziness with particular caution getting up in the night to go to the bathroom, her daughter notes that she does use a pull-up and that she has been going to a urologist, and she may be having Botox treatment in the future. >>>>>>>>>>>> December 03, 2022Since August 14 2022, she reports that she is doing well. She says that the winter has been good and has been cold. She has been sleeping well. She says that her dreams are good. Mood is good. She is not having much of headache. I asked her specifically how many headaches per week and she again says she is almost not getting any headaches. I asked her daughter if she agrees. She does agree that in general she has been sleeping well and doing well overall. She still has dreams at night. She has noticed a correlation of worsening dreams in the last ~4 days or so before Emgality is due. She initially says her mother has not had any other changes except Trulicity every Friday: We note that she had started this prior to her August 14, 2022 visit. No other changes are new diagnoses.She continues Emgality monthly autoinjection for migraine, clonazepam 0.75 mg at bedtime, quetiapine, now at 3 tablets at bedtime and mirtazapine 30 mg at bedtime for behavioral issues the addition of melatonin 9 mg at bedtime for sleep. There is occasional daytime sleepiness. >>>>>>>>>>>> August 14 2022 neurology follow up reviewed:At her last visit July 10 2022, we focused on degenerative dementia, in particular REM sleep disorder. We had previously reduced clonazepam from 1 mg to 0.5 mg. We have no gone back up to clonazepam 0.75 mg which has been a good dose for her in the past. She says that she is sleeping well. Her daughter agrees that she is doing better on this dose. She also continues Seroquel, three 25 mg tablets which she had increased from 2 tablets over the summer at some point. She has not experienced any dizzy this increase which had been a concern in the past (on her daughter's part, we had concern about other medications at the time). He is mirtazapine 30 mg daily.Migraines also continue to go well on Emgality.She has started taking Trulicity from her field service engineer, Dr. Velazquez, in the interim as her sugars were sometimes high and sometimes low and her hemoglobin A1c was 7.7. She says that they are better now and only sometimes a little high. Silas points from the following interval encountersSept2021-not getting many headaches on Emgality injection today.-Wobbling speech, wobbling tongue-waking up more at night and she has started to pull her hair again. This has been during this last month. It may have gotten a little worse while Mary went on vacation. We had talked about decreasing clonazepam and we 1 mg to 0.5 mg at night she has not further reduced to this.-Her daughter privately asks if her dementia could be progressing (she does not want to use the word dementia in front of Ms. Blevins.) She said that she has been acting strangely lately, especially in the afternoon. April 30, 2022-She is not getting the headaches anymore with the injection (Emgality).-Emgality has been approved until 10/12/2022.-She is sleeping better in general with the addition of the medication that we had increased in the fall (Remeron fall 2020).--Problem is that she ran out of clonazepam 1 week ago and has been off of it. Since then, she is going to bed a little later and getting up a little later. She is still talks and night when she is sleeping. 2021Emgality loading dose on February 05, 2022 in the office has helped a lot without any side effect of constipation. February 05, 2022-Office visit for Emgality trial, ongoing bilateral temporal region headache. Improved constipation-Difficulty with mirtazapine refills (?lost Rx) temporary sent to a different pharmacy to use [facility] January 29 2022--Increased headaches--Increased bowel movements, 2 to 3/day from 1 every 4 to 5 days after seeing GI physician-- Also off of Aimovig as she had difficulty obtaining it As our appointment today was to focus on headache and potential side effects of management, we did not discuss any other issues related to her degenerative dementia that we have been working on recently have been improving in her most recent visits. January 01, 2022-- Sleeping better, not waking up as often, she does sometimes still awaken and playing with her dolls.--Difficulty with obtaining Aimovig 140 mg/mL instead of 70 mg/mL, received 70 mg/mL, ongoing headache--Previously had constipation on Ajovy, constipation contributing to nocturnal awakening--She still gets some dizziness but only when bending over or getting up out of bed. She continues quetiapine 50 mg at night, melatonin 3 tablets, clonazepam 1 mg at night and mirtazapine 30 mg daily. November 01 2021:--Mary reports that she is sleeping better since the increase in the mirtazapine from 22.5 mg to 30 mg daily. She is crying less as well. She still sometimes awakens usually about 3-4 times per week and usually talks in her sleep. She fights with her dolls. She does still sometimes pull out her hair.-- Some ongoing headaches--Mobility: Mary has to run behind her all the time to make sure she does not fall. Presenting symptomatology was reviewed from December 05, 2014 initial consultation: Up through August 2014, the patient was independent, without problems and walking (or running for that matter), cognition,, mood, or in any facet of daily activities. In very early September 2014, her sustained a problem with the nerve in his back that has since severely affected his ability to walk. This did not bother the patient over much. She took it instructed. Shortly after that, still early in September 2014, she began having problems walking as well as problems with mentation. She also had intermittent episodes of tremor. Problems began suddenly but not overnight. She fell and was taken to only hospital. She had diagnostic investigation that included brain MRI. This was unrevealing, per daughter. She was sent to acute rehabilitation and home. She had 2 more falls, and was again hospitalized and sent to acute rehabilitation after her final fall October 12, 2014. She subsequently returned home.In early October 2014, she became incontinent of urine, and soon after that incontinent of feces. There has been worsening of cognition mood and behavior. She is using a walker and with this and close attention by her daughters, there have been no further falls. She repeats herself every few minutes and forgets conversations a few minutes after they happened. She often mumbles. She needs direction for dressing and bathing and sometimes needs complete help in these activities. She is able to feed herself, but often throws her plate on herself or elsewhere when she is finished. She cries a lot. She wakes frequently at night and is convinced that someone is trying to break in. She cannot be redirected and her daughters are losing sleep because of this. Risperdal has been prescribed but this does not seem to help. She has fluctuation so that she has relatively benign symptomatology for about 1-1/2 days and then much worse symptomatology for about 2 days. On good days, and hands shake only with reaching. On bad days, hands and legs shake whether or not she is reaching. Both of her daughters have occasionally seen twitching of her limbs. Fox Molina MD [address] [place] [address] [place], [id number], [facility] Neurology [facility] 02/18/2024 08:32:25 4 text/html Follow-up for headache and for degenerative dementia presenting with early September 2014 onset of worsening cognitive dysfunction, gait impairment, shaking, and hallucination. She is accompanied by 1 of her 2 daughters, Mary the oldest, who provided the bulk of the history and is her city plant supervisor and administer of her pills. The other daughter was not present. >>>>>>>>>>>>June 01, 2024Since February 10 2024 Neurology follow-up encounter, she has reduced her morning time donepezil from 10 mg daily to 5 mg daily. Dizziness has gotten significantly better. She now only gets dizzy if she bends down. She has had no falls.Her daughter has noticed her mumbling on the phone around noon time about two or three times per week. The patient says that her tongue will not let her talk. On such days, the patient is subsequently tired so she sits in a chair she dozes off.Her headaches remain well treated on Qulipta 30 mg daily.Her mood remains good and her sleep through the night remains good, sleeping through the night, although she goes to bed late. She remains on mirtazapine 30 mg every evening, melatonin 6 mg every evening, clonazepam 0.75 mg every evening and quetiapine 25 mg every evening. She only rarely needs an extra 25 mg around 2 PM from her daughter for anxiety/agitation. Her daughter wonders when diagnosis of dementia was made. From my chart notes, I made the diagnosis in 2014 with symptoms relating to memory starting ~September 2014. She wonders about her legal decision making capability. This is in context of her daughter seeking legal guardianship as she is doing well with caregiving. There is some pushback from other members of the family. That is a subtle question involving the level of her dementia which I do not feel capable of doing given the language barrier. >>>>>>>>>>>>February 10 2024Since December 17, 2023 neurology follow-up she has started Qulipta 30 mg as previously instructed and tells me e s jose enrique (it s good) last visit helping with the headache and with some enthusiasm she says S i me ayuda mucho! (Yes, it helps me a lot). She denies any side effect as does her daughter. her daughter does flush it out a bit, she had increased headaches with the left scalp lesion and then had it removed and biopsied and had significant head pain that did not respond to [id number] medications but did respond to Qulipta 30 mg. Daughter also reports that she had an A1c done and went up from 5.5-6.2. She continues on clonazepam 0.75 nightly and on quetiapine 75 mg nightly and 1 as needed although she has not needed it in the afternoon recently. There has been less crying at night and now only occurring when she is stressed, about 2-3 times weekly. She continues melatonin 3 tablets nightly and mirtazapine. She also continues donepezil 10 mg. She does have some ongoing episodes of dizziness. >>>>>>>>>>>> December 17, 2023Since November 19 2023 neurology follow-up, she has been back to her maintenance trainer and it is confirmed that she does have likely skin cancer on the left side of her scalp. She had this about 2 years ago and it was removed but has come back. Her daughter says that the maintenance trainer advised that she tell us about the left-sided headaches she has been getting. These are going on daily and dominate on the left side. She will be seeing another specialist to have it removed to make sure that it is not going into the head and then there will be a biopsy.She has also been getting a lot of dizziness, particularly when bending over.Her daughter is continuing the Seroquel three 25 mg tablets at night and has shifted the afternoon time to 2 PM. This is helping with the behavioral issues that were emerging in the late afternoon and she is not having excessive sleepiness. >>>>>>>>>>>>November 19 2023Since November 05, 2023 neurology follow-up 2 weeks ago, she held Emgality which was due the next day on the . She says that she is doing well. Her daughter says it has been good and then she says that regarding headaches, is n ot that much like before . Before, they relate every day now, she is having them about 3 times per week. I clarify if she means every day while she was on Emgality and she says yes.There have been some episodes of screaming agitation in the late afternoon described since 2022: We had talked about additional quetiapine 1 to 2 hours before the episodes, according to her daughter she has had it in the late afternoon and tolerated it but she also says that she was waiting for this follow-up to decide whether to give it to her earlier.She has also been to the maintenance trainer and her daughter has not told her but tells me that she may have skin C*A*N*C*E*R (she spells the word in [place]) and wonders if this could have anything to do with the headaches. >>>>>>>>>>>>November 05 2023Since July 16 2023 neurology follow-up, she politely tells me that she is doing well and when I ask her about headaches she says that she does not have many. However, her daughter says that sometimes, when she gets mad, she gets them. (We briefly discussed in [place] that this makes sense to me because stress can trigger headaches). Her daughter continues to give her three 25 mg quetiapine at night for nocturnal behavior which is helping some but she continues to behavioral issues in the afternoons, now usually most afternoons around 2 or 3 in the afternoon at which time she screams at her and screams at her daughter. Daughter has not tried giving her an additional Seroquel/quetiapine in the early afternoon to see if this improves. At the end of our visit today, her daughter raises a concern: She says that every time she gives her mother the Emgality injection (on the of every month) her arm gets swollen. It started in July or August and it lasts for about 15 minutes. She will go sit down and relax and it improves. Last time, she started massaging the arm and it went away after half an hour. She has not noted any redness or any rash. But, sometimes, she has noted that her mother will say I am swollen and she will go and look and sometimes see that the lip is swollen. >>>>>>>>>>>>August 05t her July 02, 2023 neurology follow-up, she and her daughter reported a number of interval issues (dizziness, nausea, headache, week and a half of behavioral worsening at night). I asked what they would like to focus on today. Her daughter thinks that the is g oing a little more . Some days are fine but on other days, she is screaming and pulling her hair. This is happening mostly in the afternoon, usually 2-3 times per week. I asked if it continues at nighttime which is when she has historically had some trouble. She says it happens in the nighttime a lot. Her daughter says that she can see that she is sleepy and starting to fall asleep but seems to fight it. She continues clonazepam 0.75 mg nightly, quetiapine 25 mg as prescribed 1 to 3 tablets before bedtime but has been taking 3 tablets consistently as well as melatonin 9 mg nightly. She also continues mirtazapine 30 mg nightly and Emgality monthly autoinjector every month on the of the . Ms. Krause herself says that that everything is going well. She denies any difficulty in the afternoon since she says that she goes to the kitchen and sits. She says that she is sleeping well. I asked about her dreams and she said that they are fine and more specifically I asked about night terrors and she says that she does not get them much. >>>>>>>>>>>>July 02 2023Since December 03, 2022 neurology follow-up 7 months ago, she reports that she has been getting dizziness with nausea. This occurs when she is standing and up and about doing things. Her daughter initially denies that there is any association with change in position although she does say it happens when they are getting up and out of the car. Mr. Villafana later mentions that she does get some difficulty when she stands up. It is occurring every day and usually last about 10 minutes. She has not had any falls. She uses her cane when she is outside of the house but she does not use it when she is at home. I have she has been getting headaches associated with the dizzy spells and she says that she has been getting headaches that last about 10 minutes every morning and every afternoon. Sometimes the left eye goes blurry although she has been seeing an holistic specialist for this as well. She continues Emgality 120 mg/mL monthly autoinjector which she does each month on the of the .I asked her daughter if there had been any med changes. She in turn asks her mother if there have been any medication changes. Ms Krause tells her daughter N o (in [place]) who in turn translates and says there have not been any medication changes. I asked who is managing the medications and her daughter clearly replies that she is the one who is managing them.I asked about the nighttime behavior. Her daughter says that this is just started up again about a week and a half ago where she started dreaming and screaming at night. She did not have that issue last month when she saw her primary care provider. She has been following with her primary care provider every 3 months.In the context of discussing caution at night with episodes of dizziness with particular caution getting up in the night to go to the bathroom, her daughter notes that she does use a pull-up and that she has been going to a urologist, and she may be having Botox treatment in the future. >>>>>>>>>>>> December 03, 2022Since August 14 2022, she reports that she is doing well. She says that the winter has been good and has been cold. She has been sleeping well. She says that her dreams are good. Mood is good. She is not having much of headache. I asked her specifically how many headaches per week and she again says she is almost not getting any headaches. I asked her daughter if she agrees. She does agree that in general she has been sleeping well and doing well overall. She still has dreams at night. She has noticed a correlation of worsening dreams in the last ~4 days or so before Emgality is due. She initially says her mother has not had any other changes except Trulicity every Friday: We note that she had started this prior to her August 14, 2022 visit. No other changes are new diagnoses.She continues Emgality monthly autoinjection for migraine, clonazepam 0.75 mg at bedtime, quetiapine, now at 3 tablets at bedtime and mirtazapine 30 mg at bedtime for behavioral issues the addition of melatonin 9 mg at bedtime for sleep. There is occasional daytime sleepiness. >>>>>>>>>>>> August 14 2022 neurology follow up reviewed:At her last visit July 10 2022, we focused on degenerative dementia, in particular REM sleep disorder. We had previously reduced clonazepam from 1 mg to 0.5 mg. We have no gone back up to clonazepam 0.75 mg which has been a good dose for her in the past. She says that she is sleeping well. Her daughter agrees that she is doing better on this dose. She also continues Seroquel, three 25 mg tablets which she had increased from 2 tablets over the summer at some point. She has not experienced any dizzy this increase which had been a concern in the past (on her daughter's part, we had concern about other medications at the time). He is mirtazapine 30 mg daily.Migraines also continue to go well on Emgality.She has started taking Trulicity from her field service engineer, Dr. Velazquez, in the interim as her sugars were sometimes high and sometimes low and her hemoglobin A1c was 7.7. She says that they are better now and only sometimes a little high. Silas points from the following interval encountersSept2021-not getting many headaches on Emgality injection today.-Wobbling speech, wobbling tongue-waking up more at night and she has started to pull her hair again. This has been during this last month. It may have gotten a little worse while Mary went on vacation. We had talked about decreasing clonazepam and we 1 mg to 0.5 mg at night she has not further reduced to this.-Her daughter privately asks if her dementia could be progressing (she does not want to use the word dementia in front of Ms. Blevins.) She said that she has been acting strangely lately, especially in the afternoon. April 30, 2022-She is not getting the headaches anymore with the injection (Emgality).-Emgality has been approved until 10/12/2022.-She is sleeping better in general with the addition of the medication that we had increased in the fall (Remeron fall 2020).--Problem is that she ran out of clonazepam 1 week ago and has been off of it. Since then, she is going to bed a little later and getting up a little later. She is still talks and night when she is sleeping. 2021Emgality loading dose on February 05, 2022 in the office has helped a lot without any side effect of constipation. February 05, 2022-Office visit for Emgality trial, ongoing bilateral temporal region headache. Improved constipation-Difficulty with mirtazapine refills (?lost Rx) temporary sent to a different pharmacy to use [facility]Nursen[facility] January 29 2022--Increased headaches--Increased bowel movements, 2 to 3/day from 1 every 4 to 5 days after seeing GI physician-- Also off of Aimovig as she had difficulty obtaining it As our appointment today was to focus on headache and potential side effects of management, we did not discuss any other issues related to her degenerative dementia that we have been working on recently have been improving in her most recent visits. January 01, 2022-- Sleeping better, not waking up as often, she does sometimes still awaken and playing with her dolls.--Difficulty with obtaining Aimovig 140 mg/mL instead of 70 mg/mL, received 70 mg/mL, ongoing headache--Previously had constipation on Ajovy, constipation contributing to nocturnal awakening--She still gets some dizziness but only when bending over or getting up out of bed. She continues quetiapine 50 mg at night, melatonin 3 tablets, clonazepam 1 mg at night and mirtazapine 30 mg daily. November 01 2021:--Mary reports that she is sleeping better since the increase in the mirtazapine from 22.5 mg to 30 mg daily. She is crying less as well. She still sometimes awakens usually about 3-4 times per week and usually talks in her sleep. She fights with her dolls. She does still sometimes pull out her hair.-- Some ongoing headaches--Mobility: Mary has to run behind her all the time to make sure she does not fall. Presenting symptomatology was reviewed from December 05, 2014 initial consultation: Up through August 2014, the patient was independent, without problems and walking (or running for that matter), cognition,, mood, or in any facet of daily activities. In very early September 2014, her sustained a problem with the nerve in his back that has since severely affected his ability to walk. This did not bother the patient over much. She took it instructed. Shortly after that, still early in September 2014, she began having problems walking as well as problems with mentation. She also had intermittent episodes of tremor. Problems began suddenly but not overnight. She fell and was taken to only hospital. She had diagnostic investigation that included brain MRI. This was unrevealing, per daughter. She was sent to acute rehabilitation and home. She had 2 more falls, and was again hospitalized and sent to acute rehabilitation after her final fall October 12, 2014. She subsequently returned home.In early October 2014, she became incontinent of urine, and soon after that incontinent of feces. There has been worsening of cognition mood and behavior. She is using a walker and with this and close attention by her daughters, there have been no further falls. She repeats herself every few minutes and forgets conversations a few minutes after they happened. She often mumbles. She needs direction for dressing and bathing and sometimes needs complete help in these activities. She is able to feed herself, but often throws her plate on herself or elsewhere when she is finished. She cries a lot. She wakes frequently at night and is convinced that someone is trying to break in. She cannot be redirected and her daughters are losing sleep because of this. Risperdal has been prescribed but this does not seem to help. She has fluctuation so that she has relatively benign symptomatology for about 1-1/2 days and then much worse symptomatology for about 2 days. On good days, and hands shake only with reaching. On bad days, hands and legs shake whether or not she is reaching. Both of her daughters have occasionally seen twitching of her limbs. Fox Molina MD [address] [place] [address], [phone], [facility] Neurology [facility] 06/01/2024 13:48:32 5 text/html Follow-up for headache and for degenerative dementia presenting with early September 2014 onset of worsening cognitive dysfunction, gait impairment, shaking, and hallucination. She is accompanied by 1 of her 2 daughters, Mary the oldest, who provided the bulk of the history and is her city plant supervisor and administer of her pills. The other daughter was not present. >>>>>>>>>>>>December 09, 2024Since June 01, 2024 Neurology follow-up encounter, she is mostly doing well. Her only issue is, over the last 2 weeks, she has been getting dizzy when she bends down. It does not make her fall and she is not stumbling or saying that it makes her feel unstable. Her daughter checks her sugar and it is normal during these times. Her daughter mentions no medication changes. She has asked PCP about this and PCP directed her toward neurology.Additionally, her daughter continues to notice her mumbling occasionally i n May 2024 her daughter related that the patient says that her tongue will not let her talk. She sits on the chair and dozes off on such occasions. She continues to occasionally get tired during the day. Her daughter has not reduced her melatonin at night as I had suggested June 01, 2024.She is anxious more often during the middle of the day and therefore she takes two extra quetiapine 25 mg ~2 PM every day now as opposed to rarely previously.Otherwise, she is doing well and the situation is unchanged.Her headaches remain well treated on Qulipta 30 mg daily.Her mood remains good and her sleep through the night remains good, sleeping through the night, although she goes to bed late. She remains on mirtazapine 30 mg every evening, melatonin 6 mg every evening, clonazepam 0.75 mg every evening and quetiapine 25 mg every evening. >>>>>>>>>>>>June 01, 2024Since February 10 2024 Neurology follow-up encounter, she has reduced her morning time donepezil from 10 mg daily to 5 mg daily. Dizziness has gotten significantly better. She now only gets dizzy if she bends down. She has had no falls.Her daughter has noticed her mumbling on the phone around noon time about two or three times per week. The patient says that her tongue will not let her talk. On such days, the patient is subsequently tired so she sits in a chair she dozes off.Her headaches remain well treated on Qulipta 30 mg daily.Her mood remains good and her sleep through the night remains good, sleeping through the night, although she goes to bed late. She remains on mirtazapine 30 mg every evening, melatonin 6 mg every evening, clonazepam 0.75 mg every evening and quetiapine 25 mg every evening. She only rarely needs an extra 25 mg around 2 PM from her daughter for anxiety/agitation. Her daughter wonders when diagnosis of dementia was made. From my chart notes, I made the diagnosis in 2014 with symptoms relating to memory starting ~September 2014. She wonders about her legal decision making capability. This is in context of her daughter seeking legal guardianship as she is doing well with caregiving. There is some pushback from other members of the family. That is a subtle question involving the level of her dementia which I do not feel capable of doing given the language barrier. >>>>>>>>>>>>February 10 2024Since December 17, 2023 neurology follow-up she has started Qulipta 30 mg as previously instructed and tells me e s laurenceraven (it s good) last visit helping with the headache and with some enthusiasm she says S i me ayuda mucho! (Yes, it helps me a lot). She denies any side effect as does her daughter. her daughter does flush it out a bit, she had increased headaches with the left scalp lesion and then had it removed and biopsied and had significant head pain that did not respond to [id number] medications but did respond to Qulipta 30 mg. Daughter also reports that she had an A1c done and went up from 5.5-6.2. She continues on clonazepam 0.75 nightly and on quetiapine 75 mg nightly and 1 as needed although she has not needed it in the afternoon recently. There has been less crying at night and now only occurring when she is stressed, about 2-3 times weekly. She continues melatonin 3 tablets nightly and mirtazapine. She also continues donepezil 10 mg. She does have some ongoing episodes of dizziness. >>>>>>>>>>>> December 17, 2023Since November 19 2023 neurology follow-up, she has been back to her maintenance trainer and it is confirmed that she does have likely skin cancer on the left side of her scalp. She had this about 2 years ago and it was removed but has come back. Her daughter says that the maintenance trainer advised that she tell us about the left-sided headaches she has been getting. These are going on daily and dominate on the left side. She will be seeing another specialist to have it removed to make sure that it is not going into the head and then there will be a biopsy.She has also been getting a lot of dizziness, particularly when bending over.Her daughter is continuing the Seroquel three 25 mg tablets at night and has shifted the afternoon time to 2 PM. This is helping with the behavioral issues that were emerging in the late afternoon and she is not having excessive sleepiness. >>>>>>>>>>>>November 19 2023Since November 05, 2023 neurology follow-up 2 weeks ago, she held Emgality which was due the next day on the . She says that she is doing well. Her daughter says it has been good and then she says that regarding headaches, is n ot that much like before . Before, they relate every day now, she is having them about 3 times per week. I clarify if she means every day while she was on Emgality and she says yes.There have been some episodes of screaming agitation in the late afternoon described since 2022: We had talked about additional quetiapine 1 to 2 hours before the episodes, according to her daughter she has had it in the late afternoon and tolerated it but she also says that she was waiting for this follow-up to decide whether to give it to her earlier.She has also been to the maintenance trainer and her daughter has not told her but tells me that she may have skin C*A*N*C*E*R (she spells the word in [place]an) and wonders if this could have anything to do with the headaches. >>>>>>>>>>>>November 05 2023Since July 16 2023 neurology follow-up, she politely tells me that she is doing well and when I ask her about headaches she says that she does not have many. However, her daughter says that sometimes, when she gets mad, she gets them. (We briefly discussed in [place] that this makes sense to me because stress can trigger headaches). Her daughter continues to give her three 25 mg quetiapine at night for nocturnal behavior which is helping some but she continues to behavioral issues in the afternoons, now usually most afternoons around 2 or 3 in the afternoon at which time she screams at her and screams at her daughter. Daughter has not tried giving her an additional Seroquel/quetiapine in the early afternoon to see if this improves. At the end of our visit today, her daughter raises a concern: She says that every time she gives her mother the Emgality injection (on the of every month) her arm gets swollen. It started in July or August and it lasts for about 15 minutes. She will go sit down and relax and it improves. Last time, she started massaging the arm and it went away after half an hour. She has not noted any redness or any rash. But, sometimes, she has noted that her mother will say I am swollen and she will go and look and sometimes see that the lip is swollen. >>>>>>>>>>>>August 05t her July 02, 2023 neurology follow-up, she and her daughter reported a number of interval issues (dizziness, nausea, headache, week and a half of behavioral worsening at night). I asked what they would like to focus on today. Her daughter thinks that the is g oing a little more . Some days are fine but on other days, she is screaming and pulling her hair. This is happening mostly in the afternoon, usually 2-3 times per week. I asked if it continues at nighttime which is when she has historically had some trouble. She says it happens in the nighttime a lot. Her daughter says that she can see that she is sleepy and starting to fall asleep but seems to fight it. She continues clonazepam 0.75 mg nightly, quetiapine 25 mg as prescribed 1 to 3 tablets before bedtime but has been taking 3 tablets consistently as well as melatonin 9 mg nightly. She also continues mirtazapine 30 mg nightly and Emgality monthly autoinjector every month on the of the . Ms. Krause herself says that that everything is going well. She denies any difficulty in the afternoon since she says that she goes to the kitchen and sits. She says that she is sleeping well. I asked about her dreams and she said that they are fine and more specifically I asked about night terrors and she says that she does not get them much. >>>>>>>>>>>>July 02 2023Since December 03, 2022 neurology follow-up 7 months ago, she reports that she has been getting dizziness with nausea. This occurs when she is standing and up and about doing things. Her daughter initially denies that there is any association with change in position although she does say it happens when they are getting up and out of the car. Mr. Villafana later mentions that she does get some difficulty when she stands up. It is occurring every day and usually last about 10 minutes. She has not had any falls. She uses her cane when she is outside of the house but she does not use it when she is at home. I have she has been getting headaches associated with the dizzy spells and she says that she has been getting headaches that last about 10 minutes every morning and every afternoon. Sometimes the left eye goes blurry although she has been seeing an holistic specialist for this as well. She continues Emgality 120 mg/mL monthly autoinjector which she does each month on the of the .I asked her daughter if there had been any med changes. She in turn asks her mother if there have been any medication changes. Ms Krause tells her daughter N o (in [place]ian) who in turn translates and says there have not been any medication changes. I asked who is managing the medications and her daughter clearly replies that she is the one who is managing them.I asked about the nighttime behavior. Her daughter says that this is just started up again about a week and a half ago where she started dreaming and screaming at night. She did not have that issue last month when she saw her primary care provider. She has been following with her primary care provider every 3 months.In the context of discussing caution at night with episodes of dizziness with particular caution getting up in the night to go to the bathroom, her daughter notes that she does use a pull-up and that she has been going to a urologist, and she may be having Botox treatment in the future. >>>>>>>>>>>> December 03, 2022Since August 14 2022, she reports that she is doing well. She says that the winter has been good and has been cold. She has been sleeping well. She says that her dreams are good. Mood is good. She is not having much of headache. I asked her specifically how many headaches per week and she again says she is almost not getting any headaches. I asked her daughter if she agrees. She does agree that in general she has been sleeping well and doing well overall. She still has dreams at night. She has noticed a correlation of worsening dreams in the last ~4 days or so before Emgality is due. She initially says her mother has not had any other changes except Trulicity every Friday: We note that she had started this prior to her August 14, 2022 visit. No other changes are new diagnoses.She continues Emgality monthly autoinjection for migraine, clonazepam 0.75 mg at bedtime, quetiapine, now at 3 tablets at bedtime and mirtazapine 30 mg at bedtime for behavioral issues the addition of melatonin 9 mg at bedtime for sleep. There is occasional daytime sleepiness. >>>>>>>>>>>> August 14 2022 neurology follow up reviewed:At her last visit July 10 2022, we focused on degenerative dementia, in particular REM sleep disorder. We had previously reduced clonazepam from 1 mg to 0.5 mg. We have no gone back up to clonazepam 0.75 mg which has been a good dose for her in the past. She says that she is sleeping well. Her daughter agrees that she is doing better on this dose. She also continues Seroquel, three 25 mg tablets which she had increased from 2 tablets over the summer at some point. She has not experienced any dizzy this increase which had been a concern in the past (on her daughter's part, we had concern about other medications at the time). He is mirtazapine 30 mg daily.Migraines also continue to go well on Emgality.She has started taking Trulicity from her field service engineer, Dr. Velazquez, in the interim as her sugars were sometimes high and sometimes low and her hemoglobin A1c was 7.7. She says that they are better now and only sometimes a little high. Silas points from the following interval encountersSept2021-not getting many headaches on Emgality injection today.-Wobbling speech, wobbling tongue-waking up more at night and she has started to pull her hair again. This has been during this last month. It may have gotten a little worse while Mary went on vacation. We had talked about decreasing clonazepam and we 1 mg to 0.5 mg at night she has not further reduced to this.-Her daughter privately asks if her dementia could be progressing (she does not want to use the word dementia in front of Ms. Blevins.) She said that she has been acting strangely lately, especially in the afternoon. April 30, 2022-She is not getting the headaches anymore with the injection (Emgality).-Emgality has been approved until 10/12/2022.-She is sleeping better in general with the addition of the medication that we had increased in the fall (Remeron fall 2020).--Problem is that she ran out of clonazepam 1 week ago and has been off of it. Since then, she is going to bed a little later and getting up a little later. She is still talks and night when she is sleeping. 2021Emgality loading dose on February 05, 2022 in the office has helped a lot without any side effect of constipation. February 05, 2022-Office visit for Emgality trial, ongoing bilateral temporal region headache. Improved constipation-Difficulty with mirtazapine refills (?lost Rx) temporary sent to a different pharmacy to use [facility]Nursenav January 29 2022--Increased headaches--Increased bowel movements, 2 to 3/day from 1 every 4 to 5 days after seeing GI physician-- Also off of Aimovig as she had difficulty obtaining it As our appointment today was to focus on headache and potential side effects of management, we did not discuss any other issues related to her degenerative dementia that we have been working on recently have been improving in her most recent visits. January 01, 2022-- Sleeping better, not waking up as often, she does sometimes still awaken and playing with her dolls.--Difficulty with obtaining Aimovig 140 mg/mL instead of 70 mg/mL, received 70 mg/mL, ongoing headache--Previously had constipation on Ajovy, constipation contributing to nocturnal awakening--She still gets some dizziness but only when bending over or getting up out of bed. She continues quetiapine 50 mg at night, melatonin 3 tablets, clonazepam 1 mg at night and mirtazapine 30 mg daily. November 01 2021:--Mary reports that she is sleeping better since the increase in the mirtazapine from 22.5 mg to 30 mg daily. She is crying less as well. She still sometimes awakens usually about 3-4 times per week and usually talks in her sleep. She fights with her dolls. She does still sometimes pull out her hair.-- Some ongoing headaches--Mobility: Mary has to run behind her all the time to make sure she does not fall. Presenting symptomatology was reviewed from December 05, 2014 initial consultation: Up through August 2014, the patient was independent, without problems and walking (or running for that matter), cognition,, mood, or in any facet of daily activities. In very early September 2014, her sustained a problem with the nerve in his back that has since severely affected his ability to walk. This did not bother the patient over much. She took it instructed. Shortly after that, still early in September 2014, she began having problems walking as well as problems with mentation. She also had intermittent episodes of tremor. Problems began suddenly but not overnight. She fell and was taken to only hospital. She had diagnostic investigation that included brain MRI. This was unrevealing, per daughter. She was sent to acute rehabilitation and home. She had 2 more falls, and was again hospitalized and sent to acute rehabilitation after her final fall October 12, 2014. She subsequently returned home.In early October 2014, she became incontinent of urine, and soon after that incontinent of feces. There has been worsening of cognition mood and behavior. She is using a walker and with this and close attention by her daughters, there have been no further falls. She repeats herself every few minutes and forgets conversations a few minutes after they happened. She often mumbles. She needs direction for dressing and bathing and sometimes needs complete help in these activities. She is able to feed herself, but often throws her plate on herself or elsewhere when she is finished. She cries a lot. She wakes frequently at night and is convinced that someone is trying to break in. She cannot be redirected and her daughters are losing sleep because of this. Risperdal has been prescribed but this does not seem to help. She has fluctuation so that she has relatively benign symptomatology for about 1-1/2 days and then much worse symptomatology for about 2 days. On good days, and hands shake only with reaching. On bad days, hands and legs shake whether or not she is reaching. Both of her daughters have occasionally seen twitching of her limbs. Fox Molina MD [address] [place] [address] [place], [id number], [facility] Neurology [facility] 12/09/2024 11:40:08 5 text/html Follow-up for headache and for degenerative dementia presenting with early September 2014 onset of worsening cognitive dysfunction, gait impairment, shaking, and hallucination. She is accompanied by 1 of her 2 daughters, Mary the oldest, who provided the bulk of the history and is her city plant supervisor and administer of her pills. The other daughter was not present. >>>>>>>>>>>>May 05, 2025Since December 09, 2024 Neurology follow-up encounter, she tells me she is doing fine. Her daughter agrees that she is doing fine. Her daughter herself is doing well with caregiving: She is not overwhelmed.Her headaches are mild and infrequent and she continues without side effects on Qulipta 30 mg daily for migraine prevention.Her mood is good during the day and she is not waking at night with anxiety or agitation with the help of quetiapine 25 mg tablets, 3 tablets at bedtime and, <50% of the time, an additional single tablet at 2 PM.Clonazepam 0.75 mg nightly and mirtazapine 30 mg 1 hour before bed help for mood as well.She is getting to sleep and staying asleep well more generally with the aid of melatonin at 9 mg every evening with adjunct help from the quetiapine, mirtazapine and clonazepamShe continues on donepezil 5 mg daily to help memory (10 mg dose was associated with dizziness which resolved with reduction -> 5 mg after February 10, 2024).She has no new medications.She has a problem. She takes care of her mother completely. She is her mother's legal guardian. Yet, other sisters are trying to take her mother from living with her and put her in a group home. These sisters share a mother with her but do not share a father. She notes that her father was taken and put in a group home because he was fallen. None of these other sisters ever visit him at the group home.Because of this situation, her sisters have initiated two visits from [facility] and the case has been closed both times with [facility]. Both times, she reports, the case was closed, and [facility] said that everything was fine, both with her mother and with how she was taking care of her mother.However, her sisters are still making trouble. She has a letter from [facility] and from primary care to support her keeping her mother with her. She wishes a letter from me as well. I will supply this. >>>>>>>>>>>>December 09, 2024Since June 01, 2024 Neurology follow-up encounter, she is mostly doing well. Her only issue is, over the last 2 weeks, she has been getting dizzy when she bends down. It does not make her fall and she is not stumbling or saying that it makes her feel unstable. Her daughter checks her sugar and it is normal during these times. Her daughter mentions no medication changes. She has asked PCP about this and PCP directed her toward neurology.Additionally, her daughter continues to notice her mumbling occasionally i n May 2024 her daughter related that the patient says that her tongue will not let her talk. She sits on the chair and dozes off on such occasions. She continues to occasionally get tired during the day. Her daughter has not reduced her melatonin at night as I had suggested June 01, 2024.She is anxious more often during the middle of the day and therefore she takes two extra quetiapine 25 mg ~2 PM every day now as opposed to rarely previously.Otherwise, she is doing well and the situation is unchanged.Her headaches remain well treated on Qulipta 30 mg daily.Her mood remains good and her sleep through the night remains good, sleeping through the night, although she goes to bed late. She remains on mirtazapine 30 mg every evening, melatonin 6 mg every evening, clonazepam 0.75 mg every evening and quetiapine 25 mg every evening. >>>>>>>>>>>>June 01, 2024Since February 10 2024 Neurology follow-up encounter, she has reduced her morning time donepezil from 10 mg daily to 5 mg daily. Dizziness has gotten significantly better. She now only gets dizzy if she bends down. She has had no falls.Her daughter has noticed her mumbling on the phone around noon time about two or three times per week. The patient says that her tongue will not let her talk. On such days, the patient is subsequently tired so she sits in a chair she dozes off.Her headaches remain well treated on Qulipta 30 mg daily.Her mood remains good and her sleep through the night remains good, sleeping through the night, although she goes to bed late. She remains on mirtazapine 30 mg every evening, melatonin 6 mg every evening, clonazepam 0.75 mg every evening and quetiapine 25 mg every evening. She only rarely needs an extra 25 mg around 2 PM from her daughter for anxiety/agitation. Her daughter wonders when diagnosis of dementia was made. From my chart notes, I made the diagnosis in 2014 with symptoms relating to memory starting ~September 2014. She wonders about her legal decision making capability. This is in context of her daughter seeking legal guardianship as she is doing well with caregiving. There is some pushback from other members of the family. That is a subtle question involving the level of her dementia which I do not feel capable of doing given the language barrier. >>>>>>>>>>>>February 10 2024Since December 17, 2023 neurology follow-up she has started Qulipta 30 mg as previously instructed and tells me alphonso quispe (it s good) last visit helping with the headache and with some enthusiasm she says S i me ayuda mucho! (Yes, it helps me a lot). She denies any side effect as does her daughter. her daughter does flush it out a bit, she had increased headaches with the left scalp lesion and then had it removed and biopsied and had significant head pain that did not respond to [id number] medications but did respond to Qulipta 30 mg. Daughter also reports that she had an A1c done and went up from 5.5-6.2. She continues on clonazepam 0.75 nightly and on quetiapine 75 mg nightly and 1 as needed although she has not needed it in the afternoon recently. There has been less crying at night and now only occurring when she is stressed, about 2-3 times weekly. She continues melatonin 3 tablets nightly and mirtazapine. She also continues donepezil 10 mg. She does have some ongoing episodes of dizziness. >>>>>>>>>>>> December 17, 2023Since November 19 2023 neurology follow-up, she has been back to her maintenance trainer and it is confirmed that she does have likely skin cancer on the left side of her scalp. She had this about 2 years ago and it was removed but has come back. Her daughter says that the maintenance trainer advised that she tell us about the left-sided headaches she has been getting. These are going on daily and dominate on the left side. She will be seeing another specialist to have it removed to make sure that it is not going into the head and then there will be a biopsy.She has also been getting a lot of dizziness, particularly when bending over.Her daughter is continuing the Seroquel three 25 mg tablets at night and has shifted the afternoon time to 2 PM. This is helping with the behavioral issues that were emerging in the late afternoon and she is not having excessive sleepiness. >>>>>>>>>>>>November 19 2023Since November 05, 2023 neurology follow-up 2 weeks ago, she held Emgality which was due the next day on the . She says that she is doing well. Her daughter says it has been good and then she says that regarding headaches, is n ot that much like before . Before, they relate every day now, she is having them about 3 times per week. I clarify if she means every day while she was on Emgality and she says yes.There have been some episodes of screaming agitation in the late afternoon described since 2022: We had talked about additional quetiapine 1 to 2 hours before the episodes, according to her daughter she has had it in the late afternoon and tolerated it but she also says that she was waiting for this follow-up to decide whether to give it to her earlier.She has also been to the maintenance trainer and her daughter has not told her but tells me that she may have skin C*A*N*C*E*R (she spells the word in [place]an) and wonders if this could have anything to do with the headaches. >>>>>>>>>>>>November 05 2023Since July 16 2023 neurology follow-up, she politely tells me that she is doing well and when I ask her about headaches she says that she does not have many. However, her daughter says that sometimes, when she gets mad, she gets them. (We briefly discussed in [place] that this makes sense to me because stress can trigger headaches). Her daughter continues to give her three 25 mg quetiapine at night for nocturnal behavior which is helping some but she continues to behavioral issues in the afternoons, now usually most afternoons around 2 or 3 in the afternoon at which time she screams at her and screams at her daughter. Daughter has not tried giving her an additional Seroquel/quetiapine in the early afternoon to see if this improves. At the end of our visit today, her daughter raises a concern: She says that every time she gives her mother the Emgality injection (on the of every month) her arm gets swollen. It started in July or August and it lasts for about 15 minutes. She will go sit down and relax and it improves. Last time, she started massaging the arm and it went away after half an hour. She has not noted any redness or any rash. But, sometimes, she has noted that her mother will say I am swollen and she will go and look and sometimes see that the lip is swollen. >>>>>>>>>>>>August 05t her July 02, 2023 neurology follow-up, she and her daughter reported a number of interval issues (dizziness, nausea, headache, week and a half of behavioral worsening at night). I asked what they would like to focus on today. Her daughter thinks that the is g oing a little more . Some days are fine but on other days, she is screaming and pulling her hair. This is happening mostly in the afternoon, usually 2-3 times per week. I asked if it continues at nighttime which is when she has historically had some trouble. She says it happens in the nighttime a lot. Her daughter says that she can see that she is sleepy and starting to fall asleep but seems to fight it. She continues clonazepam 0.75 mg nightly, quetiapine 25 mg as prescribed 1 to 3 tablets before bedtime but has been taking 3 tablets consistently as well as melatonin 9 mg nightly. She also continues mirtazapine 30 mg nightly and Emgality monthly autoinjector every month on the of the . Ms. Krause herself says that that everything is going well. She denies any difficulty in the afternoon since she says that she goes to the kitchen and sits. She says that she is sleeping well. I asked about her dreams and she said that they are fine and more specifically I asked about night terrors and she says that she does not get them much. >>>>>>>>>>>>July 02 2023Since December 03, 2022 neurology follow-up 7 months ago, she reports that she has been getting dizziness with nausea. This occurs when she is standing and up and about doing things. Her daughter initially denies that there is any association with change in position although she does say it happens when they are getting up and out of the car. Mr. Villafana later mentions that she does get some difficulty when she stands up. It is occurring every day and usually last about 10 minutes. She has not had any falls. She uses her cane when she is outside of the house but she does not use it when she is at home. I have she has been getting headaches associated with the dizzy spells and she says that she has been getting headaches that last about 10 minutes every morning and every afternoon. Sometimes the left eye goes blurry although she has been seeing an holistic specialist for this as well. She continues Emgality 120 mg/mL monthly autoinjector which she does each month on the of the .I asked her daughter if there had been any med changes. She in turn asks her mother if there have been any medication changes. Ms Krause tells her daughter N o (in [place]ian) who in turn translates and says there have not been any medication changes. I asked who is managing the medications and her daughter clearly replies that she is the one who is managing them.I asked about the nighttime behavior. Her daughter says that this is just started up again about a week and a half ago where she started dreaming and screaming at night. She did not have that issue last month when she saw her primary care provider. She has been following with her primary care provider every 3 months.In the context of discussing caution at night with episodes of dizziness with particular caution getting up in the night to go to the bathroom, her daughter notes that she does use a pull-up and that she has been going to a urologist, and she may be having Botox treatment in the future. >>>>>>>>>>>> December 03, 2022Since August 14 2022, she reports that she is doing well. She says that the winter has been good and has been cold. She has been sleeping well. She says that her dreams are good. Mood is good. She is not having much of headache. I asked her specifically how many headaches per week and she again says she is almost not getting any headaches. I asked her daughter if she agrees. She does agree that in general she has been sleeping well and doing well overall. She still has dreams at night. She has noticed a correlation of worsening dreams in the last ~4 days or so before Emgality is due. She initially says her mother has not had any other changes except Trulicity every Friday: We note that she had started this prior to her August 14, 2022 visit. No other changes are new diagnoses.She continues Emgality monthly autoinjection for migraine, clonazepam 0.75 mg at bedtime, quetiapine, now at 3 tablets at bedtime and mirtazapine 30 mg at bedtime for behavioral issues the addition of melatonin 9 mg at bedtime for sleep. There is occasional daytime sleepiness. >>>>>>>>>>>> August 14 2022 neurology follow up reviewed:At her last visit July 10 2022, we focused on degenerative dementia, in particular REM sleep disorder. We had previously reduced clonazepam from 1 mg to 0.5 mg. We have no gone back up to clonazepam 0.75 mg which has been a good dose for her in the past. She says that she is sleeping well. Her daughter agrees that she is doing better on this dose. She also continues Seroquel, three 25 mg tablets which she had increased from 2 tablets over the summer at some point. She has not experienced any dizzy this increase which had been a concern in the past (on her daughter's part, we had concern about other medications at the time). He is mirtazapine 30 mg daily.Migraines also continue to go well on Emgality.She has started taking Trulicity from her field service engineer, Dr. Velazquez, in the interim as her sugars were sometimes high and sometimes low and her hemoglobin A1c was 7.7. She says that they are better now and only sometimes a little high. Silas points from the following interval encountersSe2021-not getting many headaches on Emgality injection today.-Wobbling speech, wobbling tongue-waking up more at night and she has started to pull her hair again. This has been during this last month. It may have gotten a little worse while Mary went on vacation. We had talked about decreasing clonazepam and we 1 mg to 0.5 mg at night she has not further reduced to this.-Her daughter privately asks if her dementia could be progressing (she does not want to use the word dementia in front of Ms. Blevins.) She said that she has been acting strangely lately, especially in the afternoon. April 30, 2022-She is not getting the headaches anymore with the injection (Emgality).-Emgality has been approved until 10/12/2022.-She is sleeping better in general with the addition of the medication that we had increased in the fall (Remeron fall 2020).--Problem is that she ran out of clonazepam 1 week ago and has been off of it. Since then, she is going to bed a little later and getting up a little later. She is still talks and night when she is sleeping. 2021Emgality loading dose on February 05, 2022 in the office has helped a lot without any side effect of constipation. February 05, 2022-Office visit for Emgality trial, ongoing bilateral temporal region headache. Improved constipation-Difficulty with mirtazapine refills (?lost Rx) temporary sent to a different pharmacy to use [facility]Nursenav January 29 2022--Increased headaches--Increased bowel movements, 2 to 3/day from 1 every 4 to 5 days after seeing GI physician-- Also off of Aimovig as she had difficulty obtaining it As our appointment today was to focus on headache and potential side effects of management, we did not discuss any other issues related to her degenerative dementia that we have been working on recently have been improving in her most recent visits. January 01, 2022-- Sleeping better, not waking up as often, she does sometimes still awaken and playing with her dolls.--Difficulty with obtaining Aimovig 140 mg/mL instead of 70 mg/mL, received 70 mg/mL, ongoing headache--Previously had constipation on Ajovy, constipation contributing to nocturnal awakening--She still gets some dizziness but only when bending over or getting up out of bed. She continues quetiapine 50 mg at night, melatonin 3 tablets, clonazepam 1 mg at night and mirtazapine 30 mg daily. November 01 2021:--Mary reports that she is sleeping better since the increase in the mirtazapine from 22.5 mg to 30 mg daily. She is crying less as well. She still sometimes awakens usually about 3-4 times per week and usually talks in her sleep. She fights with her dolls. She does still sometimes pull out her hair.-- Some ongoing headaches--Mobility: Mary has to run behind her all the time to make sure she does not fall. Presenting symptomatology was reviewed from December 05, 2014 initial consultation: Up through August 2014, the patient was independent, without problems and walking (or running for that matter), cognition,, mood, or in any facet of daily activities. In very early September 2014, her sustained a problem with the nerve in his back that has since severely affected his ability to walk. This did not bother the patient over much. She took it instructed. Shortly after that, still early in September 2014, she began having problems walking as well as problems with mentation. She also had intermittent episodes of tremor. Problems began suddenly but not overnight. She fell and was taken to only hospital. She had diagnostic investigation that included brain MRI. This was unrevealing, per daughter. She was sent to acute rehabilitation and home. She had 2 more falls, and was again hospitalized and sent to acute rehabilitation after her final fall October 12, 2014. She subsequently returned home.In early October 2014, she became incontinent of urine, and soon after that incontinent of feces. There has been worsening of cognition mood and behavior. She is using a walker and with this and close attention by her daughters, there have been no further falls. She repeats herself every few minutes and forgets conversations a few minutes after they happened. She often mumbles. She needs direction for dressing and bathing and sometimes needs complete help in these activities. She is able to feed herself, but often throws her plate on herself or elsewhere when she is finished. She cries a lot. She wakes frequently at night and is convinced that someone is trying to break in. She cannot be redirected and her daughters are losing sleep because of this. Risperdal has been prescribed but this does not seem to help. She has fluctuation so that she has relatively benign symptomatology for about 1-1/2 days and then much worse symptomatology for about 2 days. On good days, and hands shake only with reaching. On bad days, hands and legs shake whether or not she is reaching. Both of her daughters have occasionally seen twitching of her limbs. Fox Molina MD [address] [place] [address], [place], [id number], [facility] 05/05/2025 14:51:46 OBGyn Episode No OBEpisode recorded.
== END 2025-08-02 09:36 | disposition home or self-care (01) ==
LOC: HO.HPODS 09:01
PROVIDERS: PCP Internal Medicine; Visit Provider Student in an Organized Health Care Education/Training Program
DX: M20.21 Hallux rigidus, right foot (principal); M20.22 Hallux rigidus, left foot; E11.42 Type 2 diabetes mellitus with diabetic polyneuropathy; Z79.4 Long term (current) use of insulin; L85.3 Xerosis cutis; B35.1 Tinea unguium
CPT/HCPCS: 11721; 20600; 99213

== ENCOUNTER → 2025-08-02 09:00 | Outpatient (BNVA) | payer OTHER, SELFPAY | PROVIDERS: PCP Internal Medicine; Visit Provider Student in an Organized Health Care Education/Training Program | DX: M20.21 Hallux rigidus, right foot (principal); M20.22 Hallux rigidus, left foot; E11.42 Type 2 diabetes mellitus with diabetic polyneuropathy; L85.3 Xerosis cutis; E11.40 Type 2 diabetes mellitus with diabetic neuropathy, unspecified; L60.2 Onychogryphosis; B35.1 Tinea unguium; Z79.4 Long term (current) use of insulin | CPT/HCPCS: 11721; 20600; 99212; J0665; J1100; J3301 ==

== ENCOUNTER 2025-09-14 08:29 | Outpatient (AMB) | payer OTHER, SELFPAY ==
--- NOTE | 2025-09-14 08:31 | A.OFFVIS_ITS ---
Intake Visit Reasons: Bunion pain s/p injection Intake Note: Debo is a 70 year old female who presents today for a follow up of her bilateral foot pain, last injection was on 08/02/25. Patient reports she is doing better today from the injections. Allergies francisco Allergy (Severe, Verified 09/14/25 08:36) Rash Penicillins Allergy (Intermediate, Verified 09/14/25 08:36) RASH/HIVES HPI HPI Bunion pain s/p injection: Details: The patient is a 70-year-old female past medical history includes diabetes mellitus type 2, lumbar radiculopathy, vitamin-B deficiency, GERD, returns today along with her daughter for bilateral big toe joint pain. She states the injections administered last visit have mostly resolved her pain. She is now experiencing pain to the top of her left foot and ankle. Also has a history of left knee pain and tingling/burning sensations in the ball of her feet. She describes the sensations as pins and needles, however they are typically exacerbated by walking. The tingling is primarily located on the bottom of the feet and she states she was told it is associated with neuropathy, for which she is currently taking gabapentin twice daily. Social History: - The patient uses a cane on the right side due to knee pain. - The patient plans to travel to [place] for a two-week vacation towards the end of July and early August, which will involve some walking. [facility] Medical History (Updated 09/14/25 @ 08:49 by Dimas Sanford DPM) Insulin pump in place Elevated LFTs Type 2 diabetes mellitus with diabetic polyneuropathy Abdominal pain Simple ovarian cyst Diabetes type 2, uncontrolled Overactive bladder Diabetes mellitus Urge incontinence of urine Uninhibited neurogenic bladder Delayed gastric emptying Type 2 diabetes mellitus 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, with alf current use of insulin pump Type 2 diabetes mellitus 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 Nausea and vomiting Sinusitis History of stroke Colon cancer screening Right ankle swelling Cellulitis of right lower leg Swelling of right lower extremity Left leg pain Left ankle sprain Ankle fracture, left Chronic pain syndrome Dementia 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 Diabetic neuropathy UTI (urinary tract infection) Insomnia Glaucoma Migraine Acquired hypothyroidism Hearing impairment CVA (cerebral vascular accident) Blind left eye Localized swelling, mass and lump, neck Urinary tract infection with pyuria Elevated liver enzymes Depression Anxiety Urinary incontinence in female Dementia Osteoarthritis Lumbar spondylosis Pure hypercholesterolemia Pain of right thumb Allergic rhinitis Hypertension Obesity (BMI 30-39.9) Vitamin D deficiency Dyslipidemia Diabetic polyneuropathy associated with type 2 diabetes mellitus Diabetic 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 type 2 diabetes mellitus 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 Right sided abdominal pain Dizziness and giddiness Orthostatic hypotension Charmaine albicans infection Surgical History History of carpal tunnel release History of pubovaginal sling Hx of eye surgery Hx of cystoscopy Hx of hysterectomy Hx of cholecystectomy History of esophagogastroduodenoscopy (EGD) Hx of colonoscopy Family History Father Diabetes Mother Heart problem Brother Diabetes Social History Housing: Apartment Are you a primary behavioral health care manager to a significant other at home: No Do you presently have visiting nurse or other home services: No Alcohol intake: never Patient Tobacco Use Status: Never used Tobacco e-Cigarette/Vaping Use: Never Used Second Hand Smoke Exposure: No service: No Current occupational status: disabled Gender identity: Female Cognitive needs: Yes (Cane, walker) Hearing needs: No Vision needs: Yes (Glasses) Female Reproductive History Menstrual Age of Menarche: 10 Review of Systems Const All systems reviewed & are unremarkable except as noted in HPI and below Physical Exam Extrem Other: *Bilateral Lower Extremity Focused Diabetic Foot Exam Vascular: DP/PT 2/4, CFT<3s to digits, right 1st MTP warm to touch with mild edema, left 1st MTP mild increased warmth. pedal hair absent Derm: Skin: Dry skin bilateral feet. No annual scaling. Interdigital spaces: Clear, no maceration or fungal infection. Nails: Discolored thickened toenails with subungual debris x3 right foot, x3 left foot. Neuro: Protective sensation grossly intact to bilateral lower extremities. Msk: Moderate tenderness on palpation over the anterior extensor tendons of the ankle and foot. Mild pain on dorsiflexion of the ankle. Deformities: Hallux range of motion restricted to 30 degrees dorsiflexion bilaterally. Palpable dorsal bony prominence 1st Metatarsal-phalangeal joint bilaterally. Track-bound hallux valgus deformity. Muscle strength: 5/5 in all muscle groups. Gait: Slow daisy, antalgic with cane use right side. Footwear Assessment: Shoes inspected; appropriate fit, no excessive wear, or foreign objects noted. Assessment & Plan Assessment & Plan (1) Tendinitis of left ankle: Code(s): M77.52 - Other enthesopathy of left foot and ankle Category: Medical Plan: * Recommended range of motion and strengthening exercises. A handout was dispensed. * Rx Voltaren gel * Follow up in 3 weeks. May refer to PT. (2) Hallux rigidus: Comment: s/p b/l injection 08/02 Code(s): M20.20 - Hallux rigidus, unspecified foot Category: Medical Qualifiers: Laterality: bilateral Qualified Code(s): M20.21 - Hallux rigidus, right foot; M20.22 - Hallux rigidus, left foot Plan: * Previously reviewed bilateral feet x-rays with the patient and her daughter. * Discussed treatment options in the future which include 1st Metatarsal-phala ngeal joint replacement versus fusion. Given her existing joint motion, age, and limited ambulation, we would likely recommend a joint arthroplasty. * Recommended exhausting conservative treatment measures first which include 1st Metatarsal-phalangeal joint cortisone injection, Blackman's extension insert, and supportive shoe wear. 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 Plan: * Follow up in 3-6 weeks for routine nail care (4) Xerosis cutis: Code(s): L85.3 - Xerosis cutis Category: Medical Plan: * Continue Amlactin ointment (5) Tinea unguium: Code(s): B35.1 - Tinea unguium Category: Medical Plan: * debrided elongated thickened toenails x10 * Continue ciclopirox serbian Medications: New diclofenac sodium 1% (Voltaren Arthritis Pain) apply to left ankle and foot 2 grams topical DAILY 50 grams 3RF left ankle pain Coding Level of Care Code Est Pt Level 3 (92893) Diagnoses Tendinitis of left ankle M77.52 Hallux rigidus of both feet M20.21; M20.22 Laterality: bilateral Type 2 diabetes mellitus with diabetic polyneuropathy, with long-term current use of insulin E11.42; Z79.4 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
--- OUTSIDE RECORDS SUMMARY | 2025-09-14 08:40 | XMS_ITS | Clinical Summary ---
Author Organization [facility] Address [address] [address] Phone Care Team Providers Care Seam Sewer Name Role Phone Elijah Hunter MD Primary Care Provider [phone] Social History Tobacco Use Types Packs/Day Years [...] topic Medical Devices Not on file Insurance [facility] MEDICARE REPLACEMENT [facility] MEDICARE REPLACEMENT [place] [id number] [facility] MEDICARE [facility]PLACEMENT [place] [id number] [facility] MEDICARE [place]ACEMENT [place] [id number] [facility] MEDICARE [place]PLACEMENT [place] [id number] [address] [facility] MEDICARE REPLACEMENT [facility] MEDICARE REPLACEMENT Care Teams Seam Sewer Relationship Specialty Start Date End Date Elijah Hunter MD [address] [place] [address] [place] [address] PCP - General Internal Medicine 08/02/19 Additional Source Comments The information contained in this document represents components of the legal health record. It is not the complete legal health record.[facility]
== END 2025-09-14 08:45 | disposition home or self-care (01) ==
LOC: HO.HPODS 08:30
PROVIDERS: PCP Internal Medicine; Visit Provider Student in an Organized Health Care Education/Training Program
DX: M77.52 Other enthesopathy of left foot and ankle (principal); M20.21 Hallux rigidus, right foot; M20.22 Hallux rigidus, left foot; E11.42 Type 2 diabetes mellitus with diabetic polyneuropathy; Z79.4 Long term (current) use of insulin; L85.3 Xerosis cutis; B35.1 Tinea unguium
CPT/HCPCS: 99213

== ENCOUNTER → 2025-09-14 08:29 | Outpatient (BNVA) | payer OTHER, SELFPAY | PROVIDERS: PCP Internal Medicine; Visit Provider Student in an Organized Health Care Education/Training Program | DX: E11.42 Type 2 diabetes mellitus with diabetic polyneuropathy (principal); Z79.4 Long term (current) use of insulin; M77.52 Other enthesopathy of left foot and ankle; M20.21 Hallux rigidus, right foot; M20.22 Hallux rigidus, left foot; L85.3 Xerosis cutis; B35.1 Tinea unguium | CPT/HCPCS: 99212 ==

== ENCOUNTER 2025-09-30 15:41 | Outpatient (AMB) | payer OTHER, SELFPAY ==
[2025-09-30 15:43] VITALS: BP 77/46; PULSE 72; BMI 27.0
--- NOTE | 2025-09-30 15:43 | A.OFFVIS_ITS ---
Vital Signs 09/30/25 15:43 09/30/25 15:57 Height 5 ft 1 in Weight 142 lb 13.753 oz BMI 27.0 BP 77/46 L 85/50 L Blood Pressure Location Lt brachial Position Sitting Pulse 72 Comment Manual blood pressure check Intake Visit Reasons: fu Intake Note: Debo presents in office today in follow up of CIC. CC: Space Engineer Required: No Accompanied by: Daughter Allergies francisco Allergy (Severe, Verified 09/30/25 15:47) Rash Penicillins Allergy (Intermediate, Verified 09/30/25 15:47) RASH/HIVES HPI HPI fu: Details: Assessment & Plan (1) Gastroparesis: Comment: Trulicity in other medications are likely contributing to this and her chronic nausea and vomiting, PATIENT CAN NOT TOLERATE REGLAN Code(s): K31.84 - Gastroparesis Category: Medical (2) GERD (gastroesophageal reflux disease): Code(s): K21.9 - Gastro-esophageal reflux disease without esophagitis Category: Medical Qualifiers: Esophagitis presence: without esophagitis Qualified Code(s): K21.9 - Gastro-esophageal reflux disease without esophagitis (3) Chronic idiopathic constipation: Code(s): K59.04 - Chronic idiopathic constipation Category: Medical (4) Rectocele: Code(s): N81.6 - Rectocele Category: Medical (5) Abdominal pain: Comment: really bloating/discomfort Code(s): R10.9 - Unspecified abdominal pain Category: Medical Qualifiers: Abdominal location: upper abdomen, unspecified Qualified Code(s): R10.10 - Upper abdominal pain, unspecified Plan Taiwanese #dtr translates per pt request. She is here today with her daughter and they say in general things are going well except that she has been experiencing quite a lot of upper abdominal bloating. She denies any medication changes or diet changes, although she was recently started on Levaquin, just yesterday her urine tract. This was after having Botox injections for her neurogenic bladder. I am uncertain how this may be contributing since symptom has only been over the past week or. He says moving her bowels well passing gas well and that her heartburn is well controlled. Because has not blood work in a while will check this to see if there is any concern of infection and will also get an abdominal x-ray to see if this any severe disease at play. Verifies that she has been holding her sucralfate which I want to do because of constipation. Her current medication regimen consists of rabeprazole 20 mg twice a day, Trulance once a day, bisacodyl at nighttime as needed, fiber laxative, simethicone 4 times a day, magnesium 500 mg. Chronic medications that may be contributing to her bloating syndrome given that she has gastroparesis and can not tolerate Reglan are Trulicity, Miabergon, Qulipta, donepazil, S eroquel. I sent a note to her primary care provider to see if he will either continue prescribing midodrine for her near-syncope hypotension or consider referring her to Neurology if he is not convinced that baroreceptor response is part of her problem. However, this medication stopped her falls and her dizziness. Return office visit in 4 to weeks to evaluate her and her x-ray see how bad the stool burden may be. Orders: Orders XR abdomen w decubitus 08/26/24 R10.10 - Upper abdominal pain, unspecified Complete Blood Count Auto Diff 08/26/24 R10.10 - Upper abdominal pain, unspecified Comprehensive Met. Panel 08/26/24 R10.10 - Upper abdominal pain, unspecified Medications: Refilled simethicone (Anti-Gas Ultra Strength) 180 mg PO QID 120 caps 5RF magnesium oxide 400 mg PO BEDTIME 90 tabs 2RF bisacodyl (Laxative (bisacodyl)) 10 mg (2 x 5 mg) PO BEDTIME 60 tabs 6RF K59.04 - Chronic idiopathic constipation rabeprazole 20 mg PO BID 180 tabs 2RF K21.9 - Gastro-esophageal reflux disease without esophagitis plecanatide (Trulance) 3 mg PO DAILY 30 tabs 6RF K59.04 - Chronic idiopathic constipation Discontinued phenazopyridine Take with food Discontinued Reason: Patient no longer taking 100 mg PO BID 2 days 4 tabs 0RF sucralfate Discontinued Reason: Doctor's Order 1 g PO TID 15 days 45 tabs 0RF ondansetron Discontinued Reason: No Longer Medically Relevant 4 mg PO Q8H 15 days PRN 45 tabs 1RF nausea and vomiting pantoprazole Discontinued Reason: Doctor's Order 40 mg PO BID 180 tabs 2RF nitrofurantoin monohyd/m-cryst 100 mg must administer with a meal/food Discontinued Reason: Patient Completed Course 100 mg PO BID 14 caps 0RF Labs: Laboratory Tests 08/26/24 09/08/24 07/11/25 13:18 11:37 12:12 WBC 3.9 L 4.1 L RBC 3.91 L Hgb 12.0 12.3 Hct 36.4 L 36.0 L MCV 89.3 MCH 30.5 Plt Count 125 L 117 L Estimated GFR > 60 > 60 Glucose (Clinic) 179 H Random Glucose 189 H Hemoglobin A1c % 6.4 H Total Bilirubin 0.4 0.4 AST 39 H 34 H ALT 36 H 21 Alkaline Phosphatase 110 127 H TSH < 0.01 L Free T4 1.30 X-RAY OF THE ABDOMEN WITH DECUBITUS 09/23/2024 FINDINGS: There is a normal/nonspecific bowel gas pattern. There is no focally dilated loop or evidence of obstruction. There is moderate fecal residue seen throughout the colon with sparing of the rectum. -No organomegaly. -Aside from mild vascular calcifications, no abnormal soft tissue calcification seen. -Lung bases clear. -Mild levoconvex lumbar scoliosis with moderate to advanced spondylosis. -Mild degenerative changes bilateral hip joints -Cholecystectomy clips present. XR/XR abdomen w decubitus IMPRESSION: 1. No acute findings in the abdomen. 2. Mild constipation. TODAY'S VISIT Taiwanese # PFSH Medical History (Updated 09/30/25 @ 16:09 by REKHA Chang) Insulin pump in place Elevated LFTs Type 2 diabetes mellitus with diabetic polyneuropathy Abdominal pain Simple ovarian cyst Diabetes type 2, uncontrolled Overactive bladder Diabetes mellitus Urge incontinence of urine Uninhibited neurogenic bladder Delayed gastric emptying Type 2 diabetes mellitus 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, with middle or intermediate school principal current use of insulin pump Type 2 diabetes mellitus 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 Nausea and vomiting Sinusitis History of stroke Colon cancer screening Right ankle swelling Cellulitis of right lower leg Swelling of right lower extremity Left leg pain Left ankle sprain Ankle fracture, left Chronic pain syndrome Dementia 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 Diabetic neuropathy UTI (urinary tract infection) Insomnia Glaucoma Migraine Acquired hypothyroidism Hearing impairment CVA (cerebral vascular accident) Blind left eye Localized swelling, mass and lump, neck Urinary tract infection with pyuria Elevated liver enzymes Depression Anxiety Urinary incontinence in female Dementia Osteoarthritis Lumbar spondylosis Pure hypercholesterolemia Pain of right thumb Allergic rhinitis Hypertension Obesity (BMI 30-39.9) Vitamin D deficiency Dyslipidemia Diabetic polyneuropathy associated with type 2 diabetes mellitus Diabetic 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 type 2 diabetes mellitus senior living (current) use of insulin Right sided abdominal pain Dizziness and giddiness Orthostatic hypotension Charmaine albicans infection Surgical History History of carpal tunnel release History of pubovaginal sling Hx of eye surgery Hx of cystoscopy Hx of hysterectomy Hx of cholecystectomy History of esophagogastroduodenoscopy (EGD) Hx of colonoscopy Family History Father Diabetes Mother Heart problem Brother Diabetes Social History Housing: Apartment Are you a primary aged or disabled carer to a significant other at home: No Do you presently have visiting nurse or other home services: No Alcohol intake: never Patient Tobacco Use Status: Never used Tobacco e-Cigarette/Vaping Use: Never Used Second Hand Smoke Exposure: No service: No Current occupational status: disabled Gender identity: Female Cognitive needs: Yes (Cane, walker) Hearing needs: No Vision needs: Yes (Glasses) Female Reproductive History Menstrual Age of Menarche: 10 Review of Systems Const Denies fatigue, Denies fever(s), Denies night sweats, Reports poor appetite and Reports weight loss Eyes Details: GLASSES Reports requires corrective lenses ENT Reports Normal hearing present, Denies dysphagia, Denies odynophagia, Denies throat swelling and Denies tongue swelling Resp Reports no additional complaints GI Details: Denies abdominal pain, Denies melena, Denies bloating, Denies hematochezia, Reports constipation, Reports GI cramping, Denies dysphagia, Denies excessive flatus, Denies early satiety, Reports heartburn, Denies diarrhea, Denies nausea, Denies odynophagia, Denies vomiting and Denies hematemesis Musc Reports back pain, Reports myalgias and Reports radiating pain into limb Skin/Breast Denies pruritus, Denies lesions, Denies rash and Denies jaundice Neuro Reports Normal hearing present, Denies Abnormal speech present and Reports memory loss Psych Reports memory loss Endo Denies fatigue Aller/Immun Denies throat swelling and Denies tongue swelling Physical Exam Vital Signs: BMI result Body Mass Index 27.0 Const General: cooperative, no acute distress, well developed and well groomed Nutritional Appearance: average body habitus and well nourished Orientation/consciousness: oriented to person, oriented to place and oriented to time Limitations: language barrier, ambulation with cane and other limitations HEENT Head: Yes normocephalic and Yes atraumatic Eyes General: appearance normal, both eyes and all related structures Pupils: Equal, round and reactive pupils present Neck Neck: Yes normal visual inspection and Yes no lymphadenopathy Thyroid: Thyroid normal Resp Effort & Inspection: normal respiratory effort and able to speak in complete sentences Auscultation: clear to auscultation bilaterally Cardio Rate: regular rate Rhythm: regular rhythm Heart sounds: Normal, physiologic split S2 sound present Peripheral pulses: radial pulses present and posterior tibial pulses present GI Inspection: No distended and No Abdominal panniculus present Palpation (GI): Soft to palpation, nontender, no guarding, not rigid, No hepatosplenomegaly present and Hepatosplenomegaly present Percussion: Yes normal to percussion Auscultation: normal bowel sounds Rectal Exam - Female: deferred Skin General skin exam: no rashes or lesions noted, turgor normal, skin not dry, no jaundice, No spider nevi and no striae Rashes: no rashes Nails: normal Neuro General: oriented to person, oriented to place and oriented to time Cranial nerves: Yes Equal, round and reactive pupils present and Yes Normal hearing present Speech: No Abnormal speech present Extrem General: Yes normal to inspection, No clubbing, No cyanosis and No edema Psych Appearance: grossly normal and well kempt Mental Status: mental status grossly normal Speech and movement: Slowed speech present (Psych) Affect: normal affect Attitude: cooperative Thought process: not confabulating and Impoverished thought process present Thought content: Normal thought content present Insight: Limited insight present (Psych) Judgement: Limited judgement present (Psych) Results Reviewed Results Reviewed: Laboratory Tests 08/26/24 09/08/24 07/11/25 13:18 11:37 12:12 WBC 3.9 L 4.1 L RBC 3.91 L Hgb 12.0 12.3 Hct 36.4 L 36.0 L MCV 89.3 MCH 30.5 Plt Count 125 L 117 L Estimated GFR > 60 > 60 Glucose (Clinic) 179 H Random Glucose 189 H Hemoglobin A1c % 6.4 H Total Bilirubin 0.4 0.4 AST 39 H 34 H ALT 36 H 21 Alkaline Phosphatase 110 127 H TSH < 0.01 L Free T4 1.30 X-RAY OF THE ABDOMEN WITH DECUBITUS 09/23/2024 FINDINGS: There is a normal/nonspecific bowel gas pattern. There is no focally dilated loop or evidence of obstruction. There is moderate fecal residue seen throughout the colon with sparing of the rectum. -No organomegaly. -Aside from mild vascular calcifications, no abnormal soft tissue calcification seen. -Lung bases clear. -Mild levoconvex lumbar scoliosis with moderate to advanced spondylosis. -Mild degenerative changes bilateral hip joints -Cholecystectomy clips present. XR/XR abdomen w decubitus IMPRESSION: 1. No acute findings in the abdomen. 2. Mild constipation. Assessment & Plan Assessment & Plan (1) Weight loss, abnormal: Code(s): R63.4 - Abnormal weight loss Category: Medical (2) Low TSH level: Code(s): R79.89 - Other specified abnormal findings of blood chemistry Category: Medical (3) Type 2 diabetes mellitus with diabetic polyneuropathy: Comment: insulin pump Code(s): E11.42 - Type 2 diabetes mellitus with diabetic polyneuropathy Category: Medical Qualifiers: Diabetes mellitus middle or intermediate school principal insulin use: with correction use Qualified Code(s): E11.42 - Type 2 diabetes mellitus with diabetic polyneuropathy; Z79.4 - senior living (current) use of insulin (4) Gastroparesis: Comment: Trulicity in other medications are likely contributing to this and her chronic nausea and vomiting, PATIENT CAN NOT TOLERATE REGLAN Code(s): K31.84 - Gastroparesis Category: Medical (5) GERD (gastroesophageal reflux disease): Code(s): K21.9 - Gastro-esophageal reflux disease without esophagitis Category: Medical Qualifiers: Esophagitis presence: without esophagitis Qualified Code(s): K21.9 - Gastro-esophageal reflux disease without esophagitis (6) Chronic idiopathic constipation: Code(s): K59.04 - Chronic idiopathic constipation Category: Medical Plan [facility] #DTR TRANSLATES AND IS PRIMARY CAREGIVER Her current medication regimen consists of rabeprazole 20 mg twice a day, Trulance once a day, -[id number]- -a-t- -[id number]-m-[id number]- -a-s- -j-[id number]-a-d-[id number]-d-,- fiber laxative, simethicone 4 times a day, magnesium 500 mg. Chronic medications that may be contributing to her bloating syndrome given that she has gastroparesis and can not tolerate Reglan are Trulicity, Miabergon, Qulipta, donepazil, Seroquel. Subjective Caregiver reports blood pressure has been running low again; prior episodes of passing out have resolved. Previously noted upper abdominal bloating has largely improved, but patient now experiences post-bowel movement bloating and cramping localized to the abdomen lasting approximately 15?20 minutes after defecation. She had significant constipation previously; constipation is improved on Trulance after stopping bisacodyl. No other new health concerns reported. There has been notable unintentional weight loss from 164 lb (08/2024) to 142 lb currently. Appetite is poor unless meals are prepared for her; psychosocial context includes separation from spouse?s household contributing to low mood. Mild dementia is present. Diabetes control is variable with glucose sometimes reaching ~200 mg/dL even when not eating much. Patient has intermittent low back pain with radiation to legs/feet at times. Patient is on long-standing levothyroxine; a prior TSH in June was elevated (thyroid ?running a little high?). Midodrine is no longer being taken. Objective - Weight today 142 lb (previously 164 lb in 08/2024) - Prior lumbar spine X-ray: advanced lumbar degenerative changes with lumbar curvature and nerve root impingement; constipation noted at that time - June labs: TSH elevated Assessment & Plan Post-defecation abdominal cramping/bloating; chronic constipation, improved on Trulance: Symptoms limited to 15?20 minutes post-BM. Constipation improved after discontinuing bisacodyl; currently on Trulance. - Continue Trulance - Continue fiber supplement, simethicone, and magnesium - Do not change regimen today; monitor symptoms - Discussed that Linaclotide offers dose titration if needed in future; defer change at this time Unintentional weight loss; decreased appetite; possible thyroxine over- replacement: Weight down from 164 lb to 142 lb. Poor appetite with psychosocial contributors; prior TSH elevated while on stable levothyroxine dose. - Order thyroid labs to recheck (TSH) now; no fasting needed - Will adjust levothyroxine dose if indicated based on repeat results and recheck thereafter - Coordinate management with PCP (Dr. Hunter) - Discussed community meal support options (e.g., Meals on Wheels) Type 2 diabetes mellitus, variable control: Reported readings up to ~200 mg/dL at times. - Order hemoglobin A1C to assess current control History of low blood pressure with prior syncope, improved: Midodrine discontinued; syncope no longer occurring. 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 - Education provided regarding chronic nature and potential for radicular pain; no new interventions today - Renew chronic medications as indicated (including rabeprazole, Trulance, fiber laxative, simethicone, magnesium) - Labs may be drawn today or later this week; I will review results and contact caregiver; expect results within about one week - Follow up in 3 months to review weight, thyroid results/medications, bowel symptoms, and diabetes control Orders: Orders TSH reflex Free T4 Today R79.89 - Other specified abnormal findings of blood chemistry Hemoglobin A1c Today E11.42 - Type 2 diabetes mellitus with diabetic polyneuropathy, Z79.4 - senior living (current) use of insulin Medications: Refilled rabeprazole 20 mg PO BID 180 tabs 0RF K21.9 - Gastro-esophageal reflux disease without esophagitis simethicone (Anti-Gas Ultra Strength) 180 mg PO QID 120 caps 0RF plecanatide (Trulance) 3 mg PO DAILY 30 tabs 6RF K59.04 - Chronic idiopathic constipation Discontinued midodrine Discontinued Reason: Doctor's Order 10 mg PO TID 90 tabs 1RF I95.1 - Orthostatic hypotension, R42 - Dizziness and giddiness bisacodyl (Laxative (bisacodyl)) Discontinued Reason: Doctor's Order 10 mg (2 x 5 mg) PO BEDTIME 60 tabs 6RF K59.04 - Chronic idiopathic constipation Coding Level of Care Code Est Pt Level 4 (41391) Diagnoses Weight loss, abnormal R63.4 Low TSH level R79.89 Type 2 diabetes mellitus with diabetic polyneuropathy, with long-term current use of insulin E11.42; Z79.4 Diabetes mellitus middle or intermediate school principal insulin use: with middle or intermediate school principal use Gastroparesis K31.84 Gastroesophageal reflux disease without esophagitis K21.9 Esophagitis presence: without esophagitis Chronic idiopathic constipation K59.04 Time Spent (min) 37
[2025-09-30 15:57] VITALS: BP 85/50
--- OUTSIDE RECORDS SUMMARY | 2025-09-30 16:37 | XMS_ITS ---
Author Name Agatha Mayorga NP Address [address] [place] [address] Phone [phone] [facility] Care Team Providers Care Letterset Press Set Up Operator Name Role Phone Agatha Mayorga Unavailable [phone] VANITA MOLINA Unavailable [phone] TRIP GOETZ Unavailable [phone] MYAH ELDER Unavailable [phone] Elijah Hunter Unavailable [phone] DEVIN ESTRELLA Unavailable [phone] XOCHITL TAVAREZ Unavailable [phone] January Unavailable [phone] Neil Velazquez Unavailable [phone] Reason for Referral Not Available Allergies, adverse [...] AT BEDTIME 2022 No Data Available Nystatin [id number] UNIT/GM Crm APPLY TO AFF ECTED AREA [...] 2023-02-24 2024-01-30 BD UF MICRO PEN NEEDLE [id number] DIRECTED INJECTS 4 TIMES A DAY 2023-03-19 [...] StableRosuvastat in, Lantus, Humalog Has omnipod insulin [id number] 7.7% Monitor BG routinely, low carb diet, [...] Pain Assessment - NO pain present (1126F) [facility] [place] Pain Assessment - NO pain present (1126F) [facility] [place] Pain Assessment - NO pain present (1126F) [facility] [place] Pain Assessment - NO pain present (1126F) [facility] [place] Pain Assessment - NO pain present (1126F) [facility] [place] Pain Assessment - NO pain present (1126F) [facility] [place] Pain Assessment - NO pain present (1126F) [facility] [place] Pain Assessment - NO pain present (1126F) [facility] [place] Pain Assessment - NO pain present (1126F) [facility] [place] Presence of insulin pump (external) (internal)Migraine, unspecified, not intractable, without status migrainosusType 2 diabetes mellitus with other specified 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Hyperlipidemia, unspecifiedUnspecified dementia without behavioral disturbanceOveractive bladderObesity, unspecifiedMajor depressive disorder, single episode, unspecifiedAnxiety disorder, unspecified Estab. patient 30-39min; chronic exacerbation, 2 stable chronic or 1 acute illness add add modifier 95 for video, (do not use for phone, instead use 09958-92) [facility] [place]20[place] Migraine, unspecified, not intractable, without status migrainosusType 2 diabetes mellitus with other specified 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Hyperlipidemia, unspecifiedUnspecified dementia without behavioral disturbanceMajor depressive disorder, recurrent, moderateOveractive bladderObesity, unspecifiedAnxiety disorder, unspecified Estab. patient 30-39min; chronic exacerbation, 2 stable chronic or 1 acute illness add add modifier 95 for video, (do not use for phone, instead use 35671-80) [facility] [place] Estab. patient 30-39min; chronic exacerbation, 2 stable chronic or 1 acute illness add add modifier 95 for video, (do not use for phone, instead use 84098-99) [facility] [place] Estab. patient 30-39min; chronic exacerbation, 2 stable chronic or 1 acute illness add add modifier 95 for video, (do not use for phone, instead use 65201-91) [facility] [place] Estab. patient 30-39min; chronic exacerbation, 2 stable chronic or 1 acute illness add add modifier 95 for video, (do not use for phone, instead use 74704-63) [facility] [place] Estab. patient 30-39min; chronic exacerbation, 2 stable chronic or 1 acute illness add add modifier 95 for video, (do not use for phone, instead use 38602-67) [facility] [place] Estab. patient 30-39min; chronic exacerbation, 2 stable chronic or 1 acute illness add add modifier 95 for video, (do not use for phone, instead use 81707-00) [facility] [place] Estab. patient 30-39min; chronic exacerbation, 2 stable chronic or 1 acute illness add add modifier 95 for video, (do not use for phone, instead use 39661-79) [facility] [place] 05[place]/20[place] Estab. patient 30-39min; chronic exacerbation, 2 stable chronic or 1 acute illness add add modifier 95 for video, (do not use for phone, instead use 28111-34) [facility] [place]/20[place] Estab. patient 30-39min; chronic exacerbation, 2 stable chronic or 1 acute illness add add modifier 95 for video, (do not use for phone, instead use 84819-36) [facility] [place] Estab. patient 30-39min; chronic exacerbation, 2 stable chronic or 1 acute illness add add modifier 95 for video, (do not use for phone, instead use 24314-20) [facility] [place] 01[place]/2024 Migraine, unspecified, not intractable, without status [...] (do not use for phone, instead use 30716-89) [facility] [place]/20[place] Estab. patient 30-39min; chronic exacerbation, 2 stable chronic or 1 acute illness add add modifier 95 for video, (do not use for phone, instead use 85400-22) [facility] [place] Estab. patient 30-39min; chronic exacerbation, 2 stable chronic or 1 acute illness add add modifier 95 for video, (do not use for phone, instead use 74508-99) [facility] [place] Estab. patient 30-39min; chronic exacerbation, 2 stable chronic or 1 acute illness add add modifier 95 for video, (do not use for phone, instead use 94176-57) [facility] [place] Estab. patient 30-39min; chronic exacerbation, 2 stable chronic or 1 acute illness add add modifier 95 for video, (do not use for phone, instead use 62277-66) [facility] [place] Estab. patient 30-39min; chronic exacerbation, 2 stable chronic or 1 acute illness add add modifier 95 for video, (do not use for phone, instead use 13221-91) [facility] [place] Estab. patient 30-39min; chronic exacerbation, 2 stable chronic or 1 acute illness add add modifier 95 for video, (do not use for phone, instead use 72150-70) [facility] [place] Estab. patient 30-39min; chronic exacerbation, 2 stable chronic or 1 acute illness add add modifier 95 for video, (do not use for phone, instead use 14720-96) [facility] [place] Estab. patient 30-39min; chronic exacerbation, 2 stable chronic or 1 acute illness add add modifier 95 for video, (do not use for phone, instead use 81137-28) [facility] [place] Estab. patient 20-29min; 1 stable chronic or 2 minor; add add modifier 95 for video, modifier 93 for phone [facility] [place]13/2024 Migraine, unspecified, not intractable, without status [...] 95 for video, modifier 93 for phone [facility] [place] 12[place]13/20[place] Estab. patient 20-29min; 1 stable chronic or 2 minor; add add modifier 95 for video, modifier 93 for phone [facility] [place]13[place] Estab. patient 20-29min; 1 stable chronic or 2 minor; add add modifier 95 for video, modifier 93 for phone [facility] [place]13/20[place] Estab. patient 20-29min; 1 stable chronic or 2 minor; add add modifier 95 for video, modifier 93 for phone [facility] [place] Estab. patient 20-29min; 1 stable chronic or 2 minor; add add modifier 95 for video, modifier 93 for phone [facility] [place]/13/20[place] Estab. patient 20-29min; 1 stable chronic or 2 minor; add add modifier 95 for video, modifier 93 for phone [facility] [place] 12[place]/2024 Vital Signs Date of Collection [...] tive Time Current Smoking Status Never smoker 2025-09-12 9 Sex Female Gender identity Woman History [...] (do not use for phone, instead use 49585-30) [id number] 2022-08-13 No Data Available No Data Availa ble Estab. patient 30-39min; chronic exacerbation, 2 stable chronic or 1 acute illness add add modifier 95 for video, (do not use for phone, instead use 86826-18) [id number] 2023-05-22 No Data Available No Data Availa [...] (do not use for phone, instead use 67395-69) [id number] 2024-01-30 No Data Available No Data Availa [...] 95 for video, modifier 93 for phone [id number] 2024-12-13 No Data Available No Data Availa [...] mellitus ty pe 2, 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, on computer terminal operator insulin pumpMigrainesHyperlipidemia associated with type 2 [...] education needs that may arise.Has omnipod insulin [id number] 7.7% last monthBlood sugar varies, since adding [...] arise.Emgality monthlyNeurology - Dr. Magallanes omnipod insulin [id number] 7.7% last monthBlood sugar varies, since adding [...] Dr. JohnsonRosuvastatin, Lantus, Humalog Has omnipod insulin [id number] 7.7% Monitor BG routinely, low carb diet, [...] on 12/09/24.StableRosuvastatin, Lantus, Humalog Has omnipod insulin [id number] 7.7% Monitor BG routinely, low carb diet, [...]
--- OUTSIDE RECORDS SUMMARY | 2025-09-30 16:38 | XMS_ITS | Clinical Summary ---
Author Organization [facility] Address [address] [address] Phone Care Team Providers Care Gem Carver Name Role Phone Elijah Hunter MD Primary Care Provider [phone] Social History Tobacco Use Types Packs/Day Years [...] Medical Devices Not on file Insurance [facility]AC[facility] [place] [id number] [facility] RE[facility] [place] [id number] [facility] [place] [id number] [facility] RE[facility] [place] [id number] [address] [facility] [place] [facility] RE[facility] Care Teams Gem Carver Relationship Specialty Start Date End Date Elijah Hunter MD [address] [place] [address] [place] [address] PCP - General Internal Medicine 08/02/19 Additional Source Comments The information contained in this document represents components of the legal health record. It is not the complete legal health record.[facility]
--- OUTSIDE RECORDS SUMMARY | 2025-09-30 16:38 | XMS_ITS | Data Portability ---
Author Organization [facility], [employer] Address [address] [place] [address] Care Team Providers Care Welt Stitcher Name Role Phone CAROL PARTIDA Primary Care Provider CAROL PARTIDA Referring Provider Assessment Encounter Date [...] care regarding management of nausea (or her tiler). 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 We have had some concern that escalating the mirtazapine may not make much difference in the nocturnal awakening and could have a paradoxical effect, however, it is made enough of a difference during the sleeping nights that her service and repair supervisor and her are able to sleep [...] August 08, right after her follow-up with [place] [facility] on that day. Perhaps an increase [...] fludrocortisone up through 08/08/2021 and saw her auto customize painter after her appointment with us 08/08. Midodrine [...] with 4 tablets, please use coupon to filler picker the initial prescription for a 4-month trial [...] it with primary care and with your auto customize painter. In the meanwhile, please use caution when [...] you, please continue to work with your auto customize painter. 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 We have had some concern that escalating the mirtazapine may not make much difference in the nocturnal awakening and could have a paradoxical effect, however, it is made enough of a difference during the sleeping nights that her service and repair supervisor and her are able to sleep [...] August 08, right after her follow-up with [place] [facility] on that day. Perhaps an increase [...] fludrocortisone up through 08/08/2021 and saw her auto customize painter after her appointment with us 08/08. Midodrine [...] you, please continue to work with your auto customize painter. 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 We have had some concern that escalating the mirtazapine may not make much difference in the nocturnal awakening and could have a paradoxical effect, however, it is made enough of a difference during the sleeping nights that her service and repair supervisor and her are able to sleep [...] August 08, right after her follow-up with [place] [facility] on that day. Perhaps an increase [...] fludrocortisone up through 08/08/2021 and saw her auto customize painter after her appointment with us 08/08. 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 We have had some concern that escalating the mirtazapine may not make much difference in the nocturnal awakening and could have a paradoxical effect, however, it is made enough of a difference during the sleeping nights that her service and repair supervisor and her are able to sleep [...] August 08, right after her follow-up with [place] [facility] on that day. Perhaps an increase [...] fludrocortisone up through 08/08/2021 and saw her auto customize painter after her appointment with us 08/08. Midodrine [...] her mother and put her in a jail. >>>>>>>>>>>>May 05, 2025 I will continue medications [...] in October per the pharmacy (Changed from [facility] due to insurance barriers in spring [...] Orders melatonin 3 mg tablet 2024 025 [id number] [address] [place], [address], 05/05/2025 14:31:35 mirtazapi ne 30 mg tablet 2024 025 [facility] [address] [place], [address], 05/05/2025 14:31:35 quetiapin e 25 mg tablet 2024 025 [facility] [address] [place], [address], 05/05/2025 14:31:35 donepezil 5 mg tablet 2024 025 [facility], [address] [place], [address], 05/05/2025 14:31:35 Qulipta 30 mg tablet 2024 025 [facility], [address] [place], [address], 05/05/2025 14:31:35 melatonin 3 mg tablet 2024 025 [facility], [address] [place], [address], 12/09/2024 11:22:17 mirtazapi ne 30 mg tablet 2024 025 [facility], [address] [place], [address], 12/09/2024 11:22:17 quetiapin e 25 mg tablet 2024 025 [facility], [address] [place], [address], 12/09/2024 11:22:18 donepezil 5 mg tablet 2024 025 [facility], [address] [place], [address], 12/09/2024 11:22:16 Qulipta 30 mg tablet 2024 025 [facility], [address] [place], [address], 12/09/2024 11:22:16 melatonin 3 mg tablet 2023 024 [facility], [address] [place], [address], 06/01/2024 13:45:16 mirtazapi ne 30 mg tablet 2023 024 [facility], [address] [place], [address], 06/01/2024 13:45:15 quetiapin e 25 mg tablet 2023 024 [facility], [address] [place], [address], 06/01/2024 13:45:22 donepezil 5 mg tablet 2023 024 [facility] [address] [place], [address], 06/01/2024 13:45:16 Qulipta 30 mg tablet 2023 024 [facility] [address] [place], [address], 06/01/2024 13:45:16 donepezil 5 mg tablet 2023 024 [facility] [address] [place], [address], 02/10/2024 12:38:24 clonazepa m 0.5 mg tablet 2023 024 [facility] [address] [place], [address], 02/10/2024 12:38:25 melatonin 3 mg tablet 2023 024 [facility] [address] [place], [address], 02/10/2024 12:38:23 mirtazapi ne 30 mg tablet 2023 024 [facility] [address] [place], [address], 02/10/2024 12:38:23 quetiapin e 25 mg tablet 2023 024 [facility], [address] [place], [address], 02/10/2024 12:38:22 Qulipta 30 mg tablet 2023 024 [facility], [address] [place], [address], 02/10/2024 12:38:23 Qulipta 30 mg tablet 2023 024 [facility], [address] [facility], [place], [address], 12/17/2023 12:06:35 Patient TargetsNo targets recorded. Patient Instructions Encounter Date Encounter Id Patient Instructions Last Modified By Organization Details Last Modified Time 12/17/2023 [id number] PREVIOUS MEDICAT ION Emgality 120 mg/mL monthly [...] for now. Her Daughter says that her marketing operations associate feels that she may have skin cancer, [...] brain until they have more information from marketing operations associate. -It is not entirely clear to me [...] sent to a different pharmacy to use [facility]. January 29, 2022 discussion Sleep was improved [...] right face droop and right chest pain. [facility] could find no stroke or heart attack evidence. She is on aspirin. I do not think further medication change or investigation is needed. Previous discussions from February 2016 or before: I explained that the problems on the telephone relate to reduced capability to communicate over the telephone, which is harder for people with dementia than talking [id number]. Previously: Management pathway for choosing [facility] as [...] minutes juana Not available 12/17/2023 17:41:49 02/10/2024 [id number] PREVIOUS MEDICAT ION Emgality 120 mg/mL monthly [...] care regarding management of nausea (or her tiler). November 19 2023: She is nearly 2 weeks past due for Emgality and headaches seem to be slightly better than they were previously. We decided to hold off on introducing another preventative for now. Her Daughter says that her marketing operations associate feels that she may have skin cancer, [...] brain until they have more information from marketing operations associate. -It is not entirely clear to me [...] sent to a different pharmacy to use [facility]. January 29, 2022 discussion Sleep was improved [...] right face droop and right chest pain. [facility] could find no stroke or heart attack evidence. She is on aspirin. I do not think further medication change or investigation is needed. Previous discussions from February 2016 or before: I explained that the problems on the telephone relate to reduced capability to communicate over the telephone, which is harder for people with dementia than talking [id number]. Previously: Management pathway for choosing [facility] as [...] minutes juana Not available 02/10/2024 20:06:21 06/01/2024 [id number] PREVIOUS MEDICAT ION Emgality 120 mg/mL monthly [...] care regarding management of nausea (or her tiler). November 19 2023: She is nearly 2 weeks past due for Emgality and headaches seem to be slightly better than they were previously. We decided to hold off on introducing another preventative for now. Her Daughter says that her marketing operations associate feels that she may have skin cancer, [...] brain until they have more information from marketing operations associate. -It is not entirely clear to me [...] sent to a different pharmacy to use [facility]. January 29, 2022 discussion Sleep was improved [...] right face droop and right chest pain. [facility] could find no stroke or heart attack evidence. She is on aspirin. I do not think further medication change or investigation is needed. Previous discussions from February 2016 or before: I explained that the problems on the telephone relate to reduced capability to communicate over the telephone, which is harder for people with dementia than talking [id number]. Previously: Management pathway for choosing [facility] as [...] toxicity mrossen Not available 06/01/2024 13:45:56 12/09/2024 [id number] PREVIOUS MEDICAT ION Emgality 120 mg/mL monthly [...] care regarding management of nausea (or her tiler). November 19 2023: She is nearly 2 weeks past due for Emgality and headaches seem to be slightly better than they were previously. We decided to hold off on introducing another preventative for now. Her Daughter says that her marketing operations associate feels that she may have skin cancer, [...] brain until they have more information from marketing operations associate. -It is not entirely clear to me [...] sent to a different pharmacy to use [facility]. January 29, 2022 discussion Sleep was improved [...] right face droop and right chest pain. [facility] could find no stroke or heart attack evidence. She is on aspirin. I do not think further medication change or investigation is needed. Previous discussions from February 2016 or before: I explained that the problems on the telephone relate to reduced capability to communicate over the telephone, which is harder for people with dementia than talking [id number]. Previously: Management pathway for choosing [facility] as [...] toxicity mrossen Not available 12/09/2024 11:39:54 05/05/2025 [id number] PREVIOUS MEDICAT ION Emgality 120 mg/mL monthly [...] care regarding management of nausea (or her tiler). November 19 2023: She is nearly 2 weeks past due for Emgality and headaches seem to be slightly better than they were previously. We decided to hold off on introducing another preventative for now. Her Daughter says that her marketing operations associate feels that she may have skin cancer, [...] brain until they have more information from marketing operations associate. -It is not entirely clear to me [...] sent to a different pharmacy to use [facility]. January 29, 2022 discussion Sleep was improved [...] right face droop and right chest pain. [facility] could find no stroke or heart attack evidence. She is on aspirin. I do not think further medication change or investigation is needed. Previous discussions from February 2016 or before: I explained that the problems on the telephone relate to reduced capability to communicate over the telephone, which is harder for people with dementia than talking [id number]. Previously: Management pathway for choosing [facility] as [...] Organization Details Recorded Time Alzheimer 's disease 58424198 Active Not Available [facility] 4 14:34:47 Lewy body disease 25449439 Active 021 Not Available [facility] 4 14:34:47 Notes:Some problems listed i n Documents: #[id number], #[id number], #[id number], #[id number], #[id number], #[id number], #[id number] could not be added to this patient's chart. Please review these documents and add these problems to the patient's chart manually as needed. Problem Notes None recorded. Procedures Surgical History Date Name Laterality Status Provider Name and Address Organization Details Recorded Time 05/05/2025 DATA REVIEW completed Fox Molina MD [address] [place] [address] [place], [address], [facility] 05/05/2025 14:21:06 12/09/2024 DATA REVIEW completed Fox Molina MD [address] [place] [address] [place], [address], [facility] 12/09/2024 11:11:14 06/01/2024 DATA REVIEW completed Fox Molina MD [address] [facility] [place], [place], [address], [facility] 06/01/2024 13:18:26 02/10/2024 DATA REVIEW completed JANI DIAS PA-C [address] [facility] [place], [place], [address], [facility] 02/10/2024 12:10:51 12/17/2023 DATA REVIEW completed ADARSH BURGOS [facility] [place], [place], [address], [facility] 12/17/2023 11:33:31 11/19/2023 DATA REVIEW completed JANI DIAS PA-C [address] [facility] [place], [place], [address], [facility] 11/19/2023 13:10:51 11/05/2023 DATA REVIEW completed ADARSH BURGOS [facility] B, [place], [address], [facility] 11/05/2023 09:12:27 08/05/2023 DATA REVIEW completed ADARSH BURGOS [facility] B, [place], [address], [facility] 08/05/2023 09:22:13 07/02/2023 DATA REVIEW completed ADARSH BURGOS [facility] B, [place], [address], [facility] 07/02/2023 09:49:18 12/03/2022 DATA REVIEW completed ADARSH BURGOS [facility] [place], [place], [address], [facility] 12/03/2022 10:17:36 08/14/2022 DATA REVIEW completed ADARSH BURGOS [facility] [place], [place], [address], [facility] 08/14/2022 16:55:53 07/10/2022 DATA REVIEW completed ADARSH BURGOS [facility] [place], [place], [address], [facility] 07/10/2022 11:02:41 04/30/2022 DATA REVIEW completed ADARSH BURGOS [facility] [place], [place], [address], [facility] 04/30/2022 10:19:28 03/05/2022 DATA REVIEW completed ADARSH BURGOS [facility] [place], [place], [address], [facility] 03/05/2022 11:04:10 02/05/2022 DATA REVIEW completed ADARSH BURGOS [facility] [place], [place], [address], [facility] 02/05/2022 10:31:38 01/29/2022 DATA REVIEW completed ADARSH BURGOS [facility] B, [place], [address], [facility] 01/29/2022 13:08:34 01/01/2022 DATA REVIEW completed ADARSH BURGOS [facility] [place], [place], [address], [facility] 01/01/2022 09:05:31 11/01/2021 DATA REVIEW completed ADARSH BURGOS [facility] B, [place], [address], [facility] 11/01/2021 09:07:02 09/11/2021 DATA REVIEW completed ADARSH BURGOS [facility] [place], [place], [address], [facility] 09/11/2021 09:28:02 08/09/2021 DATA REVIEW completed ADARSH BURGOS [facility] [place], [place], [address], [facility] 08/09/2021 10:14:30 08/08/2021 DATA REVIEW completed Fox Molina MD [address] [place], [place] [address], [address], [facility] 08/08/2021 10:06:54 07/11/2021 DATA REVIEW completed Fox Molina MD [address] [place], [place] [address], [address], [facility] 07/11/2021 08:08:17 06/12/2021 DATA REVIEW completed Fox Molina MD [address] [place], [place] [address], [address], [facility] 06/12/2021 08:05:55 02/28/2021 DATA REVIEW completed Fox Molina MD [address] [place] [address] [place], [address], [facility] 02/28/2021 15:25:57 Imaging Results None recorded. Procedure [...] active Not Available Not Available Not Avai labinocente tolterodi ne ER 2 mg capsule,e xtended [...] Not Available Not Available No t Available Audinate Ultra Test strips USE TO TEST 4 [...] will come to office for trial of odetteen t CGRP inhibito r d/t side effect [...] Codes Diagnosis Note [id number] Fox Molina MD [facility] [address] [place] [address] [place] [address] 02/28/2021 15:05:01 03/01/2021 07:30:46 Alzheimer's disease 05418171 G30.9 Lewy body dementia with behavioral disturbance [id number] 71302 G31.83 Behavioral variant of frontotemporal dementia 753786965 G31.09 Multiple s ystem atrophy 144309128 G90.3 1733 Fox Molina MD [facility] [address] [place] [address] [place] [address] 06/12/2021 07:57:54 06/12/2021 08:43:46 Alzheimer's disease 79428054 G30.9 Lewy body dementia with behavioral disturbance [id number] 61748 G31.83 Behavioral variant of frontotemporal dementia 648016422 G31.09 Multiple s ystem atrophy 711132782 G90.3 2115 Fox Molina MD [facility] [address] [place] [address] [place] [address] 07/11/2021 07:57:57 07/11/2021 08:44:09 Alzheimer's disease 33106301 G30.9 Lewy body dementia with behavioral disturbance 1878656538 90355 G31.83 Behavioral variant of frontotemporal dementia 196490020 G31.09 Multiple s ystem atrophy 895516837 G90.3 2482 Fox Molina MD [facility] [address] [place] [address] [place] [address] 08/08/2021 09:18:20 08/08/2021 11:39:13 Alzheimer's disease 17245582 G30.9 Lewy body dementia with behavioral disturbance 2283123678 35867 G31.83 Behavioral variant of frontotemporal dementia 768955860 G31.09 Multiple s ystem atrophy 264279479 G90.3 2501 JANI DIAS PA-C [facility] [address] [place] [address] [place] [address] 08/09/2021 10:10:26 08/14/2021 13:29:21 Alzheimer's disease 67260937 G30.9 Lewy body dementia with behavioral disturbance 3737403985 85292 G31.83 Behavioral variant of frontotemporal dementia 075550293 G31.09 Multiple s ystem atrophy 760589149 G90.3 2956 JANI DIAS PA-C [facility] [address] [place] [address] [place] [address] 09/11/2021 08:57:08 09/12/2021 14:59:00 Alzheimer's disease 72507819 G30.9 Lewy body dementia with behavioral disturbance 7612988951 83943 G31.83 Behavioral variant of frontotemporal dementia 033025407 G31.09 Multiple s ystem atrophy 115225049 G90.3 3561 JANI DIAS PA-C [facility] [address] [place] [address] [place] [address] 11/01/2021 08:59:15 11/08/2021 11:38:57 Alzheimer's disease 99243204 G30.9 Lewy body dementia with behavioral disturbance 6879560070 68225 G31.83 Behavioral variant of frontotemporal dementia 539294569 G31.09 Multiple s ystem atrophy 963429729 G90.3 Migraine without aura 56 849617 G43.009 4401 [facility] [address] [place] [address] [place] [address] 01/01/2022 08:57:02 01/02/2022 07:46:07 Alzheimer's disease 18932974 G30.9 Lewy body dementia with behavioral disturbance 1377788446 56636 G31.83 Behavioral variant of frontotemporal dementia 369177702 G31.09 Multiple s ystem atrophy 107445818 G90.3 Migraine without aura 56 757211 G43.009 4791 JANI DIAS [facility] [address] [place] [address] [place] [address] 01/29/2022 13:01:52 02/01/2022 13:23:01 Alzheimer's disease 63199845 G30.9 Lewy body dementia with behavioral disturbance 7181185617 74385 G31.83 Behavioral variant of frontotemporal dementia 405525569 G31.09 Multiple s ystem atrophy 091296461 G90.3 Migraine without aura 56 619292 G43.009 4835 [facility] [address] [place] [address] [place] [address] 02/05/2022 09:49:11 02/07/2022 10:38:23 Alzheimer's disease 96850115 G30.9 Lewy body dementia with behavioral disturbance 5214946785 89696 G31.83 Behavioral variant of frontotemporal dementia 422378615 G31.09 Multiple s ystem atrophy 665415506 G90.3 Migraine without aura 56 649393 G43.009 5162 JANI DIAS [facility] [address] [place] [address] [place] [address] 03/05/2022 10:57:47 03/21/2022 16:41:37 Alzheimer's disease 93692141 G30.9 Lewy body dementia with behavioral disturbance 5585238037 00590 G31.83 Behavioral variant of frontotemporal dementia 058700325 G31.09 Multiple s ystem atrophy 864164858 G90.3 Migraine without aura 56 709114 G43.009 5876 [facility] [address] [place] [address] [place] [address] 04/30/2022 10:02:22 05/02/2022 13:58:29 Alzheimer's disease 75752049 G30.9 Lewy body dementia with behavioral disturbance 4405126009 06840 G31.83 Behavioral variant of frontotemporal dementia 218810520 G31.09 Multiple s ystem atrophy 391193784 G90.3 Migraine without aura 56 250060 G43.009 6580 [facility] [address] [place] [address] [place] [address] 07/10/2022 10:04:31 07/15/2022 09:00:19 Alzheimer's disease 09043905 G30.9 Lewy body dementia with behavioral disturbance 9590935053 10003 G31.83 Behavioral variant of frontotemporal dementia 001571407 G31.09 Multiple s ystem atrophy 563831748 G90.3 Migraine without aura 56 931409 G43.009 6895 JANI DIAS PA-C [facility] [address] [place] [address] [place] [address] 08/14/2022 15:36:04 08/15/2022 09:48:28 Alzheimer's disease 34772448 G30.9 Lewy body dementia with behavioral disturbance 9613855938 61088 G31.83 Behavioral variant of frontotemporal dementia 684701318 G31.09 Multiple s ystem atrophy 215313656 G90.3 Migraine without aura 56 492277 G43.009 7887 [facility] [facility] [address] [place] [address] [place] [address] 4 12/03/2022 10:05:29 12/10/2022 09:20:46 Alzheimer's disease [id number] G30.9 Lewy body dementia with behavioral disturbance [id number] 12583 G31.83 Behavioral variant of frontotemporal dementia 192591143 G31.09 Multiple s ystem atrophy 894277602 G90.3 Migraine without aura 56 079753 G43.009 [id number] [facility] [address] [place] [address] [place] [address] 4 07/02/2023 09:31:33 07/08/2023 11:34:38 Alzheimer's disease 58242179 G30.9 Lewy body dementia with behavioral disturbance [id number] 37534 G31.83 Behavioral variant of frontotemporal dementia 806549418 G31.09 Multiple s ystem atrophy 049645740 G90.3 Migraine without aura 56 024450 G43.009 [id number] [facility] [address] [place] [address] [place] [address] 4 08/05/2023 08:42:48 08/07/2023 10:11:23 Alzheimer's disease 62282546 G30.9 Lewy body dementia with behavioral disturbance 5288459127 G31.83 Behavioral variant of frontotemporal dementia 557261455 G31.09 Multiple s ystem atrophy 568952648 G90.3 Migraine without aura 56 937760 G43.009 [id number] [facility] [address] [place] [address] [place] [address] 4 11/05/2023 08:58:31 11/06/2023 09:28:57 Alzheimer's disease 77896955 G30.9 Lewy body dementia with behavioral disturbance [id number] 48207 G31.83 Behavioral variant of frontotemporal dementia 149292679 G31.09 Multiple s ystem atrophy 028777055 G90.3 Migraine without aura 56 393021 G43.009 [id number] [facility] [address] [place] [address] [place] [address] 4 11/19/2023 13:10:10 11/24/2023 16:03:46 Alzheimer's disease 04998067 G30.9 Lewy body dementia with behavioral disturbance 0973709988 43052 G31.83 Behavioral variant of frontotemporal dementia 515262771 G31.09 Multiple s ystem atrophy 268174934 G90.3 Migraine without aura 56 543671 G43.009 [id number] JANI DIAS PA-C [facility] [address] [place] [address] [place] [address] 4 12/17/2023 11:02:34 12/18/2023 08:45:33 Alzheimer's disease 17067845 G30.9 Lewy body dementia with behavioral disturbance 5112559605 11692 G31.83 Behavioral variant of frontotemporal dementia 372720773 G31.09 Multiple s ystem atrophy 188183686 G90.3 Migraine without aura 56 880434 G43.009 [id number] JANI DIAS PA-C [facility] [address] [place] [address] [place] [address] 4 02/10/2024 11:05:46 02/18/2024 10:56:01 Alzheimer's disease 65419550 G30.9 Lewy body dementia with behavioral disturbance 9792093674 G31.83 Behavioral variant of frontotemporal dementia 265590827 G31.09 Multiple s ystem atrophy 459584911 G90.3 Migraine without aura 56 610531 G43.009 [id number] Fox Molina MD [facility] [address] [place] [address] [place] [address] 4 06/01/2024 12:42:16 06/01/2024 17:31:56 Alzheimer's disease 42832285 G30.9 Lewy body dementia with behavioral disturbance 1365850590 G31.83 Behavioral variant of frontotemporal dementia 398961058 G31.09 Multiple s ystem atrophy 362234411 G90.3 Migraine without aura 56 426252 G43.009 [id number] Fox Molina MD [facility] [address] [place] [address] [place] [address] 4 12/09/2024 10:33:46 12/09/2024 11:57:37 Alzheimer's disease 95421364 G30.9 Lewy body dementia with behavioral disturbance 1267735300 87818 G31.83 Behavioral variant of frontotemporal dementia 444151267 G31.09 Multiple s ystem atrophy 935703846 G90.3 Migraine without aura 56 900455 G43.009 [id number] Fox Molina MD [facility] [address] [place] [address] VALERIANO WOODSZAINAB [address] 4 05/05/2025 13:41:05 05/07/2025 15:38:29 Alzheimer's disease 23511191 G30.9 Lewy body dementia with behavioral disturbance 5941960877 05314 G31.83 Behavioral variant of frontotemporal dementia 275319262 G31.09 Multiple s ystem atrophy 129377599 G90.3 Migraine without aura 56 272908 G43.009 Health Concerns Section Related Observation LastModified by Organization Detai ls LastModified Time None Recorded Concern Status LastModified by Organization Details LastModified Time None Recorded Advance Directives Directive None Recorded Payers Insurance Date Sequence Insurance Name Policy Number Policy Ruano Covered Member ID Ruano Member ID Guarantor Name 05/07/2025 1 [facility] - CARE HOME OPTIONS [place] - [place] REPLACEMENT) [facility] Debo Krause [id number] Debo Krause 08/15/2022 2 [place] [facility] Debo Krause [id number] Debo Krause 08/15/2022 2 [facility] (MEDICARE REPLACEMENT/ ADVANTAGE - HMO) Debo Krause [id number] Debo Krause Notes Date Note Type Note Provider Name and Address Organization Details Recorded Time 4 text/html Follow-up for headache and for degenerative dementia presenting with early September 2014 onset of worsening cognitive dysfunction, gait impairment, shaking, and hallucination. She is accompanied by 1 of her 2 daughters, Mary the oldest, who provided the bulk of the history and is her service and repair supervisor and administer of her pills. The other daughter was not present. >>>>>>>>>>>> December 17, 2023Since November 19 2023 neurology follow-up, she has been back to her marketing operations associate and it is confirmed that she does have likely skin cancer on the left side of her scalp. She had this about 2 years ago and it was removed but has come back. Her daughter says that the marketing operations associate advised that she tell us about the [...] her earlier.She has also been to the marketing operations associate and her daughter has not told her but tells me that she may have skin C*A*N*C*E*R (she spells the word in Lao) and wonders if this could have anything to do with the headaches. >>>>>>>>>>>>November 05 2023Since July 16 2023 neurology follow-up, she politely tells me that she is doing well and when I ask her about headaches she says that she does not have many. However, her daughter says that sometimes, when she gets mad, she gets them. (We briefly discussed in [place] that this makes sense to me because [...] blurry although she has been seeing an appeals specialist for this as well. She continues Emgality 120 mg/mL monthly autoinjector which she does each month on the of the .I asked her daughter if there had been any med changes. She in turn asks her mother if there have been any medication changes. Ms Krause tells her daughter N o (in [place]i) who in turn translates and says there [...] Emgality.She has started taking Trulicity from her instrument technician helper, Dr. Velazquez, in the interim as her sugars were sometimes high and sometimes low and her hemoglobin A1c was 7.7. She says that they are better now and only sometimes a little high. [place] points from the following interval encountersSe2021-not getting [...] sent to a different pharmacy to use [employer] January 29 2022--Increased headaches--Increased bowel movements, 2 [...] twitching of her limbs. Fox Molina MD [address] [place] [address] [place], [phone], [facility] 12/17/2023 18:44:50 4 text/html Follow-up for headache and for degenerative dementia presenting with early September 2014 onset of worsening cognitive dysfunction, gait impairment, shaking, and hallucination. She is accompanied by 1 of her 2 daughters, Mary the oldest, who provided the bulk of the history and is her service and repair supervisor and administer of her pills. The other daughter was not present. >>>>>>>>>>>>February 10 2024Since December 17, 2023 neurology follow-up she has started Qulipta 30 mg as previously instructed and tells me alphonso s jose enrique (it s good) last [...] head pain that did not respond to tkgo-pgg-vieynvj medications but did respond to Qulipta 30 [...] follow-up, she has been back to her marketing operations associate and it is confirmed that she does have likely skin cancer on the left side of her scalp. She had this about 2 years ago and it was removed but has come back. Her daughter says that the marketing operations associate advised that she tell us about the [...] her earlier.She has also been to the marketing operations associate and her daughter has not told her but tells me that she may have skin C*A*N*C*E*R (she spells the word in Lao) and wonders if this could have anything to do with the headaches. >>>>>>>>>>>>November 05 2023Since July 16 2023 neurology follow-up, she politely tells me that she is doing well and when I ask her about headaches she says that she does not have many. However, her daughter says that sometimes, when she gets mad, she gets them. (We briefly discussed in [place] that this makes sense to me because [...] blurry although she has been seeing an appeals specialist for this as well. She continues Emgality 120 mg/mL monthly autoinjector which she does each month on the of the .I asked her daughter if there had been any med changes. She in turn asks her mother if there have been any medication changes. Ms Krause tells her daughter N o (in [place]i) who in turn translates and says there [...] Emgality.She has started taking Trulicity from her instrument technician helper, Dr. Velazquez, in the interim as her sugars were sometimes high and sometimes low and her hemoglobin A1c was 7.7. She says that they are better now and only sometimes a little high. [place] points from the following interval encountersSe2021-not getting [...] sent to a different pharmacy to use [employer] January 29 2022--Increased headaches--Increased bowel movements, 2 [...] twitching of her limbs. Fox Molina MD [address] [place] [address] [place], [phone], [facility] 02/18/2024 08:32:25 text/html Follow-up for headache and for degenerative dementia presenting with early September 2014 onset of worsening cognitive dysfunction, gait impairment, shaking, and hallucination. She is accompanied by 1 of her 2 daughters, Mary the oldest, who provided the bulk of the history and is her service and repair supervisor and administer of her pills. The [...] head pain that did not respond to vkzo-cjf-ndicmqx medications but did respond to Qulipta 30 [...] follow-up, she has been back to her marketing operations associate and it is confirmed that she does have likely skin cancer on the left side of her scalp. She had this about 2 years ago and it was removed but has come back. Her daughter says that the marketing operations associate advised that she tell us about the [...] her earlier.She has also been to the marketing operations associate and her daughter has not told her but tells me that she may have skin C*A*N*C*E*R (she spells the word in Lao) and wonders if this could have anything to do with the headaches. >>>>>>>>>>>>November 05 2023Since July 16 2023 neurology follow-up, she politely tells me that she is doing well and when I ask her about headaches she says that she does not have many. However, her daughter says that sometimes, when she gets mad, she gets them. (We briefly discussed in [place] that this makes sense to me because [...] blurry although she has been seeing an appeals specialist for this as well. She continues Emgality 120 mg/mL monthly autoinjector which she does each month on the of the .I asked her daughter if there had been any med changes. She in turn asks her mother if there have been any medication changes. Ms Krause tells her daughter N o (in [place]i) who in turn translates and says there [...] Emgality.She has started taking Trulicity from her instrument technician helper, Dr. Velazquez, in the interim as her sugars were sometimes high and sometimes low and her hemoglobin A1c was 7.7. She says that they are better now and only sometimes a little high. [place] points from the following interval encountersSept2021-not getting [...] sent to a different pharmacy to use [employer] January 29 2022--Increased headaches--Increased bowel movements, 2 [...] twitching of her limbs. Fox Molina MD [address] [place] [address], [phone], [facility] 06/01/2024 13:48:32 5 text/html Follow-up for headache and for degenerative dementia presenting with early September 2014 onset of worsening cognitive dysfunction, gait impairment, shaking, and hallucination. She is accompanied by 1 of her 2 daughters, Mary the oldest, who provided the bulk of the history and is her service and repair supervisor and administer of her pills. The [...] some enthusiasm she says S i me juan josé mucho! (Yes, it helps me a lot). She denies any side effect as does her daughter. her daughter does flush it out a bit, she had increased headaches with the left scalp lesion and then had it removed and biopsied and had significant head pain that did not respond to exzc-tjg-imzlfkx medications but did respond to Qulipta 30 [...] follow-up, she has been back to her marketing operations associate and it is confirmed that she does have likely skin cancer on the left side of her scalp. She had this about 2 years ago and it was removed but has come back. Her daughter says that the marketing operations associate advised that she tell us about the [...] her earlier.She has also been to the marketing operations associate and her daughter has not told her but tells me that she may have skin C*A*N*C*E*R (she spells the word in Lao) and wonders if this could have anything to do with the headaches. >>>>>>>>>>>>November 05 2023Since July 16 2023 neurology follow-up, she politely tells me that she is doing well and when I ask her about headaches she says that she does not have many. However, her daughter says that sometimes, when she gets mad, she gets them. (We briefly discussed in [place] that this makes sense to me because [...] blurry although she has been seeing an appeals specialist for this as well. She continues Emgality 120 mg/mL monthly autoinjector which she does each month on the of the .I asked her daughter if there had been any med changes. She in turn asks her mother if there have been any medication changes. Ms Krause tells her daughter N o (in [place]i) who in turn translates and says there [...] Emgality.She has started taking Trulicity from her instrument technician helper, Dr. Velazquez, in the interim as her sugars were sometimes high and sometimes low and her hemoglobin A1c was 7.7. She says that they are better now and only sometimes a little high. [place] points from the following interval encountersSept2021-not getting [...] sent to a different pharmacy to use [employer] January 29 2022--Increased headaches--Increased bowel movements, 2 [...] twitching of her limbs. Fox Molina MD [address] [place] [address] [place], [phone], [facility] 12/09/2024 11:40:08 5 text/html Follow-up for headache and for degenerative dementia presenting with early September 2014 onset of worsening cognitive dysfunction, gait impairment, shaking, and hallucination. She is accompanied by 1 of her 2 daughters, Mary the oldest, who provided the bulk of the history and is her service and repair supervisor and administer of her pills. The [...] with her and put her in a jail. These sisters share a mother with her but do not share a father. She notes that her father was taken and put in a jail because he was fallen. None of these other sisters ever visit him at the jail.Because of this situation, her sisters have initiated two visits from [facility] and the case has been closed both times with [facility]. Both times, she reports, the case was closed, and [facility] said that everything was fine, both with her mother and with how she was taking care of her mother.However, her sisters are still making trouble. She has a letter from [facility] and from primary care to support [...] head pain that did not respond to ukqo-sdd-ehypleq medications but did respond to Qulipta 30 [...] follow-up, she has been back to her marketing operations associate and it is confirmed that she does have likely skin cancer on the left side of her scalp. She had this about 2 years ago and it was removed but has come back. Her daughter says that the marketing operations associate advised that she tell us about the [...] her earlier.She has also been to the marketing operations associate and her daughter has not told her but tells me that she may have skin C*A*N*C*E*R (she spells the word in Lao) and wonders if this could have anything to do with the headaches. >>>>>>>>>>>>November 05 2023Since July 16 2023 neurology follow-up, she politely tells me that she is doing well and when I ask her about headaches she says that she does not have many. However, her daughter says that sometimes, when she gets mad, she gets them. (We briefly discussed in [place] that this makes sense to me because [...] blurry although she has been seeing an appeals specialist for this as well. She continues Emgality 120 mg/mL monthly autoinjector which she does each month on the of the .I asked her daughter if there had been any med changes. She in turn asks her mother if there have been any medication changes. Ms Krause tells her daughter N o (in [place]i) who in turn translates and says there [...] Emgality.She has started taking Trulicity from her instrument technician helper, Dr. Velazquez, in the interim as her sugars were sometimes high and sometimes low and her hemoglobin A1c was 7.7. She says that they are better now and only sometimes a little high. [place] points from the following interval encountersSe2021-not getting [...] sent to a different pharmacy to use [employer] January 29 2022--Increased headaches--Increased bowel movements, 2 [...] twitching of her limbs. Fox Molina MD [address] [place] [address] [place], [phone], [facility] 05/05/2025 14:51:46 OBGyn Episode No OBEpisode recorded.
== END 2025-09-30 16:10 | disposition home or self-care (01) ==
LOC: HO.HGI 15:41
PROVIDERS: PCP Internal Medicine; Visit Provider Nurse Practitioner
DX: R63.4 Abnormal weight loss (principal); R79.89 Other specified abnormal findings of blood chemistry; E11.42 Type 2 diabetes mellitus with diabetic polyneuropathy; Z79.4 Long term (current) use of insulin; K31.84 Gastroparesis; K21.9 Gastro-esophageal reflux disease without esophagitis; K59.04 Chronic idiopathic constipation
CPT/HCPCS: 99214

== ENCOUNTER 2025-09-30 15:41 | Outpatient (REF) | payer OTHER, SELFPAY ==
[2025-09-30 19:20] LABS: Free T4 (Free Thyroxine) 1.41 ng/dL (0.71-1.85)
== END 2025-09-30 15:42 | disposition home or self-care (01) ==
LOC: HO.LAB 15:41
PROVIDERS: PCP Internal Medicine; Visit Provider Nurse Practitioner
DX: E11.42 Type 2 diabetes mellitus with diabetic polyneuropathy (principal); E11.43 Type 2 diabetes mellitus with diabetic autonomic (poly)neuropathy; K21.9 Gastro-esophageal reflux disease without esophagitis; K59.04 Chronic idiopathic constipation; I95.1 Orthostatic hypotension; N81.6 Rectocele; R42 Dizziness and giddiness; R63.4 Abnormal weight loss; R79.89 Other specified abnormal findings of blood chemistry; R10.10 Upper abdominal pain, unspecified; Z79.4 Long term (current) use of insulin; Z79.899 Other long term (current) drug therapy
CPT/HCPCS: 36415; 83036; 84439; 84443; 99212

== ENCOUNTER 2025-10-05 12:42 | Outpatient (REF) | payer OTHER, SELFPAY ==
--- OUTSIDE RECORDS SUMMARY | 2025-10-05 12:44 | XMS_ITS | Data Portability ---
Author Organization [facility] [employer], [employer] Address [address] [facility] [place] [address] Care Team Providers Care Video Production Intern Name Role Phone CAROL PARTIDA Primary Care Provider CAROL PARTIDA Referring Provider [phone] Assessment Encounter Date Assessment Date Assessment LastModified [...] care regarding management of nausea (or her rehabilitation services director). MEDICATION REVIEW Neurology: -Office trial of Emgality [...] in October per the pharmacy (Changed from [facility] due to insurance barriers in spring 2020); [...] 4 days/week remain a concern however her driver courier Mary is noticed an emphatic marked improvement on mirtazapine 30 mg compared to August even if the descriptors of the behaviors remain similar. We have had some concern that escalating the mirtazapine may not make much difference in the nocturnal awakening and could have a paradoxical effect, however, it is made enough of a difference during the sleeping nights that her driver courier and her are able to sleep at [...] August 08, right after her follow-up with [facility] on that day. Perhaps an increase [...] fludrocortisone up through 08/08/2021 and saw her take up operator after her appointment with us 08/08. Midodrine [...] with 4 tablets, please use coupon to picking supervisor the initial prescription for a 4-month trial [...] it with primary care and with your take up operator. In the meanwhile, please use caution when [...] you, please continue to work with your take up operator. We are aware that midodrine and fludrocortisone [...] in October per the pharmacy (Changed from [facility] due to insurance barriers in spring 2020); [...] 4 days/week remain a concern however her driver courier Mary is noticed an emphatic marked improvement on mirtazapine 30 mg compared to August even if the descriptors of the behaviors remain similar. We have had some concern that escalating the mirtazapine may not make much difference in the nocturnal awakening and could have a paradoxical effect, however, it is made enough of a difference during the sleeping nights that her driver courier and her are able to sleep at [...] August 08, right after her follow-up with [facility] on that day. Perhaps an increase [...] fludrocortisone up through 08/08/2021 and saw her take up operator after her appointment with us 08/08. Midodrine [...] you, please continue to work with your take up operator. We are aware that midodrine and fludrocortisone [...] in October per the pharmacy (Changed from [facility] due to insurance barriers in spring 2020); [...] 4 days/week remain a concern however her driver courier Mary is noticed an emphatic marked improvement on mirtazapine 30 mg compared to August even if the descriptors of the behaviors remain similar. We have had some concern that escalating the mirtazapine may not make much difference in the nocturnal awakening and could have a paradoxical effect, however, it is made enough of a difference during the sleeping nights that her driver courier and her are able to sleep at [...] August 08, right after her follow-up with [facility] on that day. Perhaps an increase [...] fludrocortisone up through 08/08/2021 and saw her take up operator after her appointment with us 08/08. Midodrine [...] in October per the pharmacy (Changed from [facility] due to insurance barriers in spring 2020); [...] 4 days/week remain a concern however her driver courier Mary is noticed an emphatic marked improvement on mirtazapine 30 mg compared to August even if the descriptors of the behaviors remain similar. We have had some concern that escalating the mirtazapine may not make much difference in the nocturnal awakening and could have a paradoxical effect, however, it is made enough of a difference during the sleeping nights that her driver courier and her are able to sleep at [...] August 08, right after her follow-up with [facility] on that day. Perhaps an increase [...] fludrocortisone up through 08/08/2021 and saw her take up operator after her appointment with us 08/08. Midodrine [...] her mother and put her in a fpc. >>>>>>>>>>>>May 05, 2025 I will continue medications [...] in October per the pharmacy (Changed from [facility] due to insurance barriers in spring 2020); [...] [facility] 3 mg tablet 2024 025 [id number] [address] [place], [address], 05/05/2025 14:31:35 mirtazapi ne 30 mg tablet 2024 025 [facility] [address] [place], [address], 05/05/2025 14:31:35 quetiapin e 25 mg tablet 2024 025 [facility] [address] [place], [address], 05/05/2025 14:31:35 donepezil 5 mg tablet 2024 025 [facility], [address] [place], [address], 05/05/2025 14:31:35 Qulipta 30 mg tablet 2024 025 [facility], [address] [place], [address], 05/05/2025 14:31:35 melatonin 3 mg tablet 2024 025 [facility], [address] [place], [address], 12/09/2024 11:22:17 mirtazapi ne 30 mg tablet 2024 025 [facility], [address] [place], [address], 12/09/2024 11:22:17 quetiapin e 25 mg tablet 2024 025 [facility], [address] [place], [address], 12/09/2024 11:22:18 donepezil 5 mg tablet 2024 025 [facility], [address] [place], [address], 12/09/2024 11:22:16 Qulipta 30 mg tablet 2024 025 [facility], [address] [place], [address], 12/09/2024 11:22:16 melatonin 3 mg tablet 2023 024 [facility], [address] [place], [address], 06/01/2024 13:45:16 mirtazapi ne 30 mg tablet 2023 024 [facility], [address] [place], [address], 06/01/2024 13:45:15 quetiapin e 25 mg tablet 2023 024 [facility], [address] [place], [address], 06/01/2024 13:45:22 donepezil 5 mg tablet 2023 024 [facility] [address] [place], [address], 06/01/2024 13:45:16 Qulipta 30 mg tablet 2023 024 [facility] [address] [place], [address], 06/01/2024 13:45:16 donepezil 5 mg tablet 2023 024 [facility] [address] [place], [address], 02/10/2024 12:38:24 clonazepa m 0.5 mg tablet 2023 024 [facility] [address] [place], [address], 02/10/2024 12:38:25 melatonin 3 mg tablet 2023 024 [facility] [address] [place], [address], 02/10/2024 12:38:23 mirtazapi ne 30 mg tablet 2023 024 [facility] [address] [place], [address], 02/10/2024 12:38:23 quetiapin e 25 mg tablet 2023 024 [facility], [address] [place], [address], 02/10/2024 12:38:22 Qulipta 30 mg tablet 2023 024 [facility], [address] [place], [address], 02/10/2024 12:38:23 Qulipta 30 mg tablet 2023 024 [facility] #[facility]71, [address] [facility], [place], [address], 12/17/2023 12:06:35 Patient TargetsNo targets recorded. Patient Instructions Encounter Date Encounter Id Patient Instructions Last Modified By Organization Details Last Modified Time 12/17/2023 [id number] PREVIOUS MEDICAT ION Emgality 120 mg/mL monthly [...] for now. Her Daughter says that her coiled coil inspector feels that she may have skin cancer, [...] brain until they have more information from coiled coil inspector. -It is not entirely clear to me [...] sent to a different pharmacy to use [facility]. January 29, 2022 discussion Sleep was improved [...] right face droop and right chest pain. [facility] could find no stroke or heart attack evidence. She is on aspirin. I do not think further medication change or investigation is needed. Previous discussions from February 2016 or before: I explained that the problems on the telephone relate to reduced capability to communicate over the telephone, which is harder for people with dementia than talking [id number]. Previously: Management pathway for choosing [employer] as [...] minutes juana Not available 12/17/2023 17:41:49 02/10/2024 [id number] PREVIOUS MEDICAT ION Emgality 120 mg/mL monthly [...] care regarding management of nausea (or her rehabilitation services director). November 19 2023: She is nearly 2 weeks past due for Emgality and headaches seem to be slightly better than they were previously. We decided to hold off on introducing another preventative for now. Her Daughter says that her coiled coil inspector feels that she may have skin cancer, [...] brain until they have more information from coiled coil inspector. -It is not entirely clear to me [...] sent to a different pharmacy to use [facility]. January 29, 2022 discussion Sleep was improved [...] right face droop and right chest pain. [facility] could find no stroke or heart attack evidence. She is on aspirin. I do not think further medication change or investigation is needed. Previous discussions from February 2016 or before: I explained that the problems on the telephone relate to reduced capability to communicate over the telephone, which is harder for people with dementia than talking [id number]. Previously: Management pathway for choosing [facility] as [...] minutes juana Not available 02/10/2024 20:06:21 06/01/2024 [id number] PREVIOUS MEDICAT ION Emgality 120 mg/mL monthly [...] care regarding management of nausea (or her rehabilitation services director). November 19 2023: She is nearly 2 weeks past due for Emgality and headaches seem to be slightly better than they were previously. We decided to hold off on introducing another preventative for now. Her Daughter says that her coiled coil inspector feels that she may have skin cancer, [...] brain until they have more information from coiled coil inspector. -It is not entirely clear to me [...] sent to a different pharmacy to use [facility]. January 29, 2022 discussion Sleep was improved [...] right face droop and right chest pain. [facility] could find no stroke or heart attack evidence. She is on aspirin. I do not think further medication change or investigation is needed. Previous discussions from February 2016 or before: I explained that the problems on the telephone relate to reduced capability to communicate over the telephone, which is harder for people with dementia than talking [id number]. Previously: Management pathway for choosing [facility] as [...] toxicity mrossen Not available 06/01/2024 13:45:56 12/09/2024 [id number] PREVIOUS MEDICAT ION Emgality 120 mg/mL monthly [...] care regarding management of nausea (or her rehabilitation services director). November 19 2023: She is nearly 2 weeks past due for Emgality and headaches seem to be slightly better than they were previously. We decided to hold off on introducing another preventative for now. Her Daughter says that her coiled coil inspector feels that she may have skin cancer, [...] brain until they have more information from coiled coil inspector. -It is not entirely clear to me [...] sent to a different pharmacy to use [facility]. January 29, 2022 discussion Sleep was improved [...] right face droop and right chest pain. [facility] could find no stroke or heart attack evidence. She is on aspirin. I do not think further medication change or investigation is needed. Previous discussions from February 2016 or before: I explained that the problems on the telephone relate to reduced capability to communicate over the telephone, which is harder for people with dementia than talking [id number]. Previously: Management pathway for choosing [employer] as [...] toxicity mrossen Not available 12/09/2024 11:39:54 05/05/2025 [id number] PREVIOUS MEDICAT ION Emgality 120 mg/mL monthly [...] care regarding management of nausea (or her rehabilitation services director). November 19 2023: She is nearly 2 weeks past due for Emgality and headaches seem to be slightly better than they were previously. We decided to hold off on introducing another preventative for now. Her Daughter says that her coiled coil inspector feels that she may have skin cancer, [...] brain until they have more information from coiled coil inspector. -It is not entirely clear to me [...] sent to a different pharmacy to use [facility]. January 29, 2022 discussion Sleep was improved [...] right face droop and right chest pain. [facility] could find no stroke or heart attack evidence. She is on aspirin. I do not think further medication change or investigation is needed. Previous discussions from February 2016 or before: I explained that the problems on the telephone relate to reduced capability to communicate over the telephone, which is harder for people with dementia than talking [id number]. Previously: Management pathway for choosing [facility] as [...] Organization Details Recorded Time Alzheimer 's disease 84340726 Active Not Available [facility] 4 14:34:47 Lewy body disease 95667121 Active 021 Not Available [facility] 4 14:34:47 Notes:Some problems listed i n Documents: #[id number], #[id number], #[id number], #[id number], #[id number], #[id number], #[id number] could not be added to this patient's chart. Please review these documents and add these problems to the patient's chart manually as needed. Problem Notes None recorded. Procedures Surgical History Date Name Laterality Status Provider Name and Address Organization Details Recorded Time 05/05/2025 DATA REVIEW completed Fox Molina MD [address] [place] [address] [place], [address], [facility] 05/05/2025 14:21:06 12/09/2024 DATA REVIEW completed Fox Molina MD [address] [place] [address] [place], [address], [facility] 12/09/2024 11:11:14 06/01/2024 DATA REVIEW completed Fox Molina MD [address] [facility] [place], [place], [address], [facility] 06/01/2024 13:18:26 02/10/2024 DATA REVIEW completed JANI DIAS PA-C [address] [facility] [place], [place], [address], [facility] 02/10/2024 12:10:51 12/17/2023 DATA REVIEW completed ADARSH BURGOS [facility] [place], [place], [address], [facility] 12/17/2023 11:33:31 11/19/2023 DATA REVIEW completed JANI DIAS PA-C [address] [facility] [place], [place], [address], [facility] 11/19/2023 13:10:51 11/05/2023 DATA REVIEW completed ADARSH BURGOS [facility] B, [place], [address], [facility] 11/05/2023 09:12:27 08/05/2023 DATA REVIEW completed ADARSH BURGOS [facility] B, [place], [address], [facility] 08/05/2023 09:22:13 07/02/2023 DATA REVIEW completed ADARSH BURGOS [facility] B, [place], [address], [facility] 07/02/2023 09:49:18 12/03/2022 DATA REVIEW completed ADARSH BURGOS [facility] [place], [place], [address], [facility] 12/03/2022 10:17:36 08/14/2022 DATA REVIEW completed ADARSH BURGOS [facility] [place], [place], [address], [facility] 08/14/2022 16:55:53 07/10/2022 DATA REVIEW completed ADARSH BURGOS [facility] [address] [place], [place], [address], [facility] 07/10/2022 11:02:41 04/30/2022 DATA REVIEW completed ADARSH BURGOS [facility] [address] [place], [place], [address], [facility] 04/30/2022 10:19:28 03/05/2022 DATA REVIEW completed ADARSH BURGOS [facility] [address] [place], [place], [address], [facility] 03/05/2022 11:04:10 02/05/2022 DATA REVIEW completed ADARSH BURGOS [facility] [address] [place], [place], [address], [facility] 02/05/2022 10:31:38 01/29/2022 DATA REVIEW completed ADARSH BURGOS [facility] B, [place], [address], [facility] 01/29/2022 13:08:34 01/01/2022 DATA REVIEW completed ADARSH BURGOS [facility] [place], [place], [address], [facility] 01/01/2022 09:05:31 11/01/2021 DATA REVIEW completed ADARSH BURGOS [facility], [place], [address], [facility] 11/01/2021 09:07:02 09/11/2021 DATA REVIEW completed ADARSH BURGOS [facility] [place], [place], [address], [facility] 09/11/2021 09:28:02 08/09/2021 DATA REVIEW completed ADARSH BURGOS [facility] [place], [place], [address], [facility] 08/09/2021 10:14:30 08/08/2021 DATA REVIEW completed Fox Molina MD [address] [place], [place] [address], [address], [facility] 08/08/2021 10:06:54 07/11/2021 DATA REVIEW completed Fox Molina MD [address] [place], [place] [address], [address], [facility] 07/11/2021 08:08:17 06/12/2021 DATA REVIEW completed Fox Molina MD [address] [place], [place] [address], [address], [facility] 06/12/2021 08:05:55 02/28/2021 DATA REVIEW completed Fox Molina MD [address] [place] [address] [place], [address], [facility] 02/28/2021 15:25:57 Imaging Results None recorded. [...] Not Available Not Available No t Available [employer] Ultra Test strips USE TO TEST 4 [...] Codes Diagnosis Note [id number] Fox Molina MD [facility] [address] [place] [address] [place] [address] 02/28/2021 15:05:01 03/01/2021 07:30:46 Alzheimer's disease 13530414 G30.9 Lewy body dementia with behavioral disturbance [id number] 18917 G31.83 Behavioral variant of frontotemporal dementia 021150958 G31.09 Multiple s ystem atrophy 939356940 G90.3 1733 Fox Molina MD [facility] [address] [place] [address] [place] [address] 06/12/2021 07:57:54 06/12/2021 08:43:46 Alzheimer's disease 28424141 G30.9 Lewy body dementia with behavioral disturbance 9648195554 04968 G31.83 Behavioral variant of frontotemporal dementia 738650857 G31.09 Multiple s ystem atrophy 805312054 G90.3 2115 Fox Molina MD [facility] [address] [place] [address] [place] [address] 07/11/2021 07:57:57 07/11/2021 08:44:09 Alzheimer's disease 24838776 G30.9 Lewy body dementia with behavioral disturbance 1267588219 72879 G31.83 Behavioral variant of frontotemporal dementia 380621832 G31.09 Multiple s ystem atrophy 243464634 G90.3 2482 Fox Molina MD [facility] [address] [place] [address] [place] [address] 08/08/2021 09:18:20 08/08/2021 11:39:13 Alzheimer's disease 19947333 G30.9 Lewy body dementia with behavioral disturbance 5770075529 97243 G31.83 Behavioral variant of frontotemporal dementia 950279213 G31.09 Multiple s ystem atrophy 935109313 G90.3 2501 JANI DIAS PA-C [facility] [address] [place] [address] [place] [address] 08/09/2021 10:10:26 08/14/2021 13:29:21 Alzheimer's disease 67119005 G30.9 Lewy body dementia with behavioral disturbance 3908301442 24595 G31.83 Behavioral variant of frontotemporal dementia 529523331 G31.09 Multiple s ystem atrophy 743971721 G90.3 2956 JANI DIAS PA-C [facility] [address] [place] [address] [place] [address] 09/11/2021 08:57:08 09/12/2021 14:59:00 Alzheimer's disease 59068812 G30.9 Lewy body dementia with behavioral disturbance 2011265001 12075 G31.83 Behavioral variant of frontotemporal dementia 734803026 G31.09 Multiple s ystem atrophy 341256371 G90.3 3561 JANI DIAS PA-C [facility] [address] [place] [address] [place] [address] 11/01/2021 08:59:15 11/08/2021 11:38:57 Alzheimer's disease 05808863 G30.9 Lewy body dementia with behavioral disturbance 9874918997 47329 G31.83 Behavioral variant of frontotemporal dementia 601427121 G31.09 Multiple s ystem atrophy 642369435 G90.3 Migraine without aura 56 545843 G43.009 4401 [facility] [address] [place] [address] [place] [address] 01/01/2022 08:57:02 01/02/2022 07:46:07 Alzheimer's disease 57836916 G30.9 Lewy body dementia with behavioral disturbance 6301391769 90121 G31.83 Behavioral variant of frontotemporal dementia 567048265 G31.09 Multiple s ystem atrophy 542736651 G90.3 Migraine without aura 56 816020 G43.009 [id number] JANI DISA [facility] [address] [place] [address] [place] [address] 01/29/2022 13:01:52 02/01/2022 13:23:01 Alzheimer's disease 62253703 G30.9 Lewy body dementia with behavioral disturbance 3077733873 90052 G31.83 Behavioral variant of frontotemporal dementia 496763814 G31.09 Multiple s ystem atrophy 540174721 G90.3 Migraine without aura 56 523744 G43.009 4835 [facility] [address] [place] [address] [place] [address] 02/05/2022 09:49:11 02/07/2022 10:38:23 Alzheimer's disease 27124918 G30.9 Lewy body dementia with behavioral disturbance 8805037126 99179 G31.83 Behavioral variant of frontotemporal dementia 151301836 G31.09 Multiple s ystem atrophy 080413998 G90.3 Migraine without aura 56 059539 G43.009 5162 JANI DIAS [facility] [address] [place] [address] [place] [address] 03/05/2022 10:57:47 03/21/2022 16:41:37 Alzheimer's disease 47979177 G30.9 Lewy body dementia with behavioral disturbance 0762927241 20863 G31.83 Behavioral variant of frontotemporal dementia 011909661 G31.09 Multiple s ystem atrophy 442761048 G90.3 Migraine without aura 56 658004 G43.009 5876 [facility] [address] [place] [address] [place] [address] 04/30/2022 10:02:22 05/02/2022 13:58:29 Alzheimer's disease 60995427 G30.9 Lewy body dementia with behavioral disturbance 0669404314 20845 G31.83 Behavioral variant of frontotemporal dementia 658835662 G31.09 Multiple s ystem atrophy 938169124 G90.3 Migraine without aura 56 128278 G43.009 6580 [facility] [address] [place] [address] [place] [address] 07/10/2022 10:04:31 07/15/2022 09:00:19 Alzheimer's disease 24240998 G30.9 Lewy body dementia with behavioral disturbance 8376173668 79640 G31.83 Behavioral variant of frontotemporal dementia 696898174 G31.09 Multiple s ystem atrophy 832720977 G90.3 Migraine without aura 56 129162 G43.009 6895 JANI DIAS PA-C [facility] [address] [place] [address] [place] [address] 08/14/2022 15:36:04 08/15/2022 09:48:28 Alzheimer's disease 12159192 G30.9 Lewy body dementia with behavioral disturbance 6546829522 76253 G31.83 Behavioral variant of frontotemporal dementia 673941390 G31.09 Multiple s ystem atrophy 007667401 G90.3 Migraine without aura 56 147562 G43.009 7887 [facility] [address] [place] [address] [place] [address] 12/03/2022 10:05:29 12/10/2022 09:20:46 Alzheimer's disease 17288116 G30.9 Lewy body dementia with behavioral disturbance 3049967840 40719 G31.83 Behavioral variant of frontotemporal dementia [id number] G31.09 Multiple s ystem atrophy 924595554 G90.3 Migraine without aura 56 891624 G43.009 [id number] [facility] [address] [place] [address] [place] [address] 07/02/2023 09:31:33 07/08/2023 11:34:38 Alzheimer's disease 94048392 G30.9 Lewy body dementia with behavioral disturbance [id number] 63080 G31.83 Behavioral variant of frontotemporal dementia 668473385 G31.09 Multiple s ystem atrophy 647434980 G90.3 Migraine without aura 56 802760 G43.009 [id number] [facility] [address] [place] [address] [place] [address] 08/05/2023 08:42:48 08/07/2023 10:11:23 Alzheimer's disease 31345842 G30.9 Lewy body dementia with behavioral disturbance 8625920765 G31.83 Behavioral variant of frontotemporal dementia 041114108 G31.09 Multiple s ystem atrophy 848946845 G90.3 Migraine without aura 56 694353 G43.009 [id number] [facility] [address] [place] [address] [place] [address] 11/05/2023 08:58:31 11/06/2023 09:28:57 Alzheimer's disease 24797440 G30.9 Lewy body dementia with behavioral disturbance [id number] 46492 G31.83 Behavioral variant of frontotemporal dementia 299653762 G31.09 Multiple s ystem atrophy 376114970 G90.3 Migraine without aura 56 309541 G43.009 [id number] [facility] [address] [place] [address] [place] [address] 11/19/2023 13:10:10 11/24/2023 16:03:46 Alzheimer's disease 81020900 G30.9 Lewy body dementia with behavioral disturbance 3165708124 36465 G31.83 Behavioral variant of frontotemporal dementia 538346979 G31.09 Multiple s ystem atrophy 023085134 G90.3 Migraine without aura 56 598596 G43.009 [id number] JANI DIAS PA-C [facility] [address] [place] [address] [place] [address] 12/17/2023 11:02:34 12/18/2023 08:45:33 Alzheimer's disease 02164888 G30.9 Lewy body dementia with behavioral disturbance 4291322807 89564 G31.83 Behavioral variant of frontotemporal dementia 810264713 G31.09 Multiple s ystem atrophy 125011051 G90.3 Migraine without aura 56 680780 G43.009 [id number] JANI DIAS PA-C [facility] [address] [place] [address] [place] [address] 02/10/2024 11:05:46 02/18/2024 10:56:01 Alzheimer's disease 37056095 G30.9 Lewy body dementia with behavioral disturbance 3862816690 G31.83 Behavioral variant of frontotemporal dementia 309061355 G31.09 Multiple s ystem atrophy 616913895 G90.3 Migraine without aura 56 671311 G43.009 [id number] Fox Molina MD [facility] [address] [place] [address] [place] [address] 06/01/2024 12:42:16 06/01/2024 17:31:56 Alzheimer's disease 98774915 G30.9 Lewy body dementia with behavioral disturbance 5170839610 G31.83 Behavioral variant of frontotemporal dementia 771804933 G31.09 Multiple s ystem atrophy 487186049 G90.3 Migraine without aura 56 890474 G43.009 [id number] Fox Molina MD [facility] [address] [place] [address] [place] [address] 4 12/09/2024 10:33:46 12/09/2024 11:57:37 Alzheimer's disease 89168159 G30.9 Lewy body dementia with behavioral disturbance 0158437616 94281 G31.83 Behavioral variant of frontotemporal dementia 122792782 G31.09 Multiple s ystem atrophy 691080419 G90.3 Migraine without aura 56 660488 G43.009 [id number] Fox Molina MD [facility] [address] [place] [address] VALERIANO WO[place]AB [address] 4 05/05/2025 13:41:05 05/07/2025 15:38:29 Alzheimer's disease 31774934 G30.9 Lewy body dementia with behavioral disturbance 8227105661 59171 G31.83 Behavioral variant of frontotemporal dementia 047129367 G31.09 Multiple s ystem atrophy 857941291 G90.3 Migraine without aura 56 022684 G43.009 Health Concerns Section Related Observation LastModified by Organization Detai ls LastModified Time None Recorded Concern Status LastModified by Organization Details LastModified Time None Recorded Advance Directives Directive None Recorded Payers Insurance Date Sequence Insurance Name Policy Number Policy Ruano Covered Member ID Ruano Member ID Guarantor Name 05/07/2025 1 [facility] - RES[place]IAL OPTIONS [place] D[place] - [place] REPLAC[place] [facility] Debo Krause [id number] Debo Krause 08/15/2022 2 [place] [facility] Debo Krause [id number] Debo Krause 08/15/2022 2 [facility] (MEDICARE REPLACEMENT/ ADVANTAGE - HMO) Debo Krause [id number] Debo Krause Notes Date Note Type Note Provider Name and Address Organization Details Recorded Time 4 text/html Follow-up for headache and for degenerative dementia presenting with early September 2014 onset of worsening cognitive dysfunction, gait impairment, shaking, and hallucination. She is accompanied by 1 of her 2 daughters, Mary the oldest, who provided the bulk of the history and is her driver courier and administer of her pills. The other daughter was not present. >>>>>>>>>>>> December 17, 2023Since November 19 2023 neurology follow-up, she has been back to her coiled coil inspector and it is confirmed that she does have likely skin cancer on the left side of her scalp. She had this about 2 years ago and it was removed but has come back. Her daughter says that the coiled coil inspector advised that she tell us about the [...] her earlier.She has also been to the coiled coil inspector and her daughter has not told her but tells me that she may have skin C*A*N*C*E*R (she spells the word in [place]) and wonders if this could have anything to do with the headaches. >>>>>>>>>>>>November 05 2023Since July 16 2023 neurology follow-up, she politely tells me that she is doing well and when I ask her about headaches she says that she does not have many. However, her daughter says that sometimes, when she gets mad, she gets them. (We briefly discussed in [place]ian that this makes sense to me because [...] blurry although she has been seeing an custody assistant for this as well. She continues Emgality 120 mg/mL monthly autoinjector which she does each month on the of the .I asked her daughter if there had been any med changes. She in turn asks her mother if there have been any medication changes. Ms Krause tells her daughter N o (in [place]ian) who in turn translates and says there [...] Emgality.She has started taking Trulicity from her cancer program director, Dr. Velazquez, in the interim as her sugars were sometimes high and sometimes low and her hemoglobin A1c was 7.7. She says that they are better now and only sometimes a little high. Ovando points from the following interval encountersSe2021-not getting [...] sent to a different pharmacy to use [facility] January 29 2022--Increased headaches--Increased bowel movements, 2 [...] twitching of her limbs. Fox Molina MD [address] [place] [address] [place], [phone], [facility] 12/17/2023 18:44:50 4 text/html Follow-up for headache and for degenerative dementia presenting with early September 2014 onset of worsening cognitive dysfunction, gait impairment, shaking, and hallucination. She is accompanied by 1 of her 2 daughters, Mary the oldest, who provided the bulk of the history and is her driver courier and administer of her pills. The other [...] head pain that did not respond to zmqp-vxe-wjvjuuf medications but did respond to Qulipta 30 [...] follow-up, she has been back to her coiled coil inspector and it is confirmed that she does have likely skin cancer on the left side of her scalp. She had this about 2 years ago and it was removed but has come back. Her daughter says that the coiled coil inspector advised that she tell us about the [...] her earlier.She has also been to the coiled coil inspector and her daughter has not told her but tells me that she may have skin C*A*N*C*E*R (she spells the word in [place]) and wonders if this could have anything to do with the headaches. >>>>>>>>>>>>November 05 2023Since July 16 2023 neurology follow-up, she politely tells me that she is doing well and when I ask her about headaches she says that she does not have many. However, her daughter says that sometimes, when she gets mad, she gets them. (We briefly discussed in [place]ian that this makes sense to me because [...] blurry although she has been seeing an custody assistant for this as well. She continues Emgality 120 mg/mL monthly autoinjector which she does each month on the of the .I asked her daughter if there had been any med changes. She in turn asks her mother if there have been any medication changes. Ms Krause tells her daughter N o (in [place]ian) who in turn translates and says there [...] Emgality.She has started taking Trulicity from her cancer program director, Dr. Velazquez, in the interim as her sugars were sometimes high and sometimes low and her hemoglobin A1c was 7.7. She says that they are better now and only sometimes a little high. Ovando points from the following interval encountersSe2021-not getting [...] sent to a different pharmacy to use [facility] January 29 2022--Increased headaches--Increased bowel movements, 2 [...] twitching of her limbs. Fox Molina MD [address] [place] [address] [place], [phone], [facility] 02/18/2024 08:32:25 text/html Follow-up for headache and for degenerative dementia presenting with early September 2014 onset of worsening cognitive dysfunction, gait impairment, shaking, and hallucination. She is accompanied by 1 of her 2 daughters, Mary the oldest, who provided the bulk of the history and is her driver courier and administer of her pills. The other [...] head pain that did not respond to qwtj-hdr-sxoawwa medications but did respond to Qulipta 30 [...] follow-up, she has been back to her coiled coil inspector and it is confirmed that she does have likely skin cancer on the left side of her scalp. She had this about 2 years ago and it was removed but has come back. Her daughter says that the coiled coil inspector advised that she tell us about the [...] her earlier.She has also been to the coiled coil inspector and her daughter has not told her but tells me that she may have skin C*A*N*C*E*R (she spells the word in [place]) and wonders if this could have anything to do with the headaches. >>>>>>>>>>>>November 05 2023Since July 16 2023 neurology follow-up, she politely tells me that she is doing well and when I ask her about headaches she says that she does not have many. However, her daughter says that sometimes, when she gets mad, she gets them. (We briefly discussed in [place]ian that this makes sense to me because [...] blurry although she has been seeing an custody assistant for this as well. She continues Emgality 120 mg/mL monthly autoinjector which she does each month on the of the .I asked her daughter if there had been any med changes. She in turn asks her mother if there have been any medication changes. Ms Krause tells her daughter N o (in [place]ian) who in turn translates and says there [...] Emgality.She has started taking Trulicity from her cancer program director, Dr. Velazquez, in the interim as her sugars were sometimes high and sometimes low and her hemoglobin A1c was 7.7. She says that they are better now and only sometimes a little high. Ovando points from the following interval encountersSept2021-not getting [...] sent to a different pharmacy to use [facility] January 29 2022--Increased headaches--Increased bowel movements, 2 [...] twitching of her limbs. Fox Molina MD [address] [place] [address], [phone], [facility] 06/01/2024 13:48:32 5 text/html Follow-up for headache and for degenerative dementia presenting with early September 2014 onset of worsening cognitive dysfunction, gait impairment, shaking, and hallucination. She is accompanied by 1 of her 2 daughters, Mary the oldest, who provided the bulk of the history and is her driver courier and administer of her pills. The other [...] head pain that did not respond to qkil-jjs-etvltxb medications but did respond to Qulipta 30 [...] follow-up, she has been back to her coiled coil inspector and it is confirmed that she does have likely skin cancer on the left side of her scalp. She had this about 2 years ago and it was removed but has come back. Her daughter says that the coiled coil inspector advised that she tell us about the [...] her earlier.She has also been to the coiled coil inspector and her daughter has not told her but tells me that she may have skin C*A*N*C*E*R (she spells the word in [place]) and wonders if this could have anything to do with the headaches. >>>>>>>>>>>>November 05 2023Since July 16 2023 neurology follow-up, she politely tells me that she is doing well and when I ask her about headaches she says that she does not have many. However, her daughter says that sometimes, when she gets mad, she gets them. (We briefly discussed in [place]ian that this makes sense to me because [...] blurry although she has been seeing an custody assistant for this as well. She continues Emgality 120 mg/mL monthly autoinjector which she does each month on the of the .I asked her daughter if there had been any med changes. She in turn asks her mother if there have been any medication changes. Ms Krause tells her daughter N o (in [place]ian) who in turn translates and says there [...] Emgality.She has started taking Trulicity from her cancer program director, Dr. Velazquez, in the interim as her sugars were sometimes high and sometimes low and her hemoglobin A1c was 7.7. She says that they are better now and only sometimes a little high. Ovando points from the following interval encountersSept2021-not getting [...] sent to a different pharmacy to use [facility] January 29 2022--Increased headaches--Increased bowel movements, 2 [...] twitching of her limbs. Fox Molina MD [address] [place] [address] [place], [phone], [facility] 12/09/2024 11:40:08 5 text/html Follow-up for headache and for degenerative dementia presenting with early September 2014 onset of worsening cognitive dysfunction, gait impairment, shaking, and hallucination. She is accompanied by 1 of her 2 daughters, Mary the oldest, who provided the bulk of the history and is her driver courier and administer of her pills. The other [...] with her and put her in a fpc. These sisters share a mother with her but do not share a father. She notes that her father was taken and put in a fpc because he was fallen. None of these other sisters ever visit him at the fpc.Because of this situation, her sisters have initiated two visits from [facility] and the case has been closed both times with [facility]. Both times, she reports, the case was closed, and [facility] said that everything was fine, both with her mother and with how she was taking care of her mother.However, her sisters are still making trouble. She has a letter from [facility] and from primary care to support her [...] head pain that did not respond to iirf-ejt-tbnkdje medications but did respond to Qulipta 30 [...] follow-up, she has been back to her coiled coil inspector and it is confirmed that she does have likely skin cancer on the left side of her scalp. She had this about 2 years ago and it was removed but has come back. Her daughter says that the coiled coil inspector advised that she tell us about the [...] her earlier.She has also been to the coiled coil inspector and her daughter has not told her but tells me that she may have skin C*A*N*C*E*R (she spells the word in [place]) and wonders if this could have anything to do with the headaches. >>>>>>>>>>>>November 05 2023Since July 16 2023 neurology follow-up, she politely tells me that she is doing well and when I ask her about headaches she says that she does not have many. However, her daughter says that sometimes, when she gets mad, she gets them. (We briefly discussed in [place]ian that this makes sense to me because [...] blurry although she has been seeing an custody assistant for this as well. She continues Emgality 120 mg/mL monthly autoinjector which she does each month on the of the .I asked her daughter if there had been any med changes. She in turn asks her mother if there have been any medication changes. Ms Krause tells her daughter N o (in [place]ian) who in turn translates and says there [...] Emgality.She has started taking Trulicity from her cancer program director, Dr. Velazquez, in the interim as her sugars were sometimes high and sometimes low and her hemoglobin A1c was 7.7. She says that they are better now and only sometimes a little high. Ovando points from the following interval encountersSe2021-not getting [...] sent to a different pharmacy to use [employer] January 29 2022--Increased headaches--Increased bowel movements, 2 [...] twitching of her limbs. Fox Molina MD [address] [place] [address] [place], [phone], [facility] 05/05/2025 14:51:46 OBGyn Episode No OBEpisode recorded.
--- OUTSIDE RECORDS SUMMARY | 2025-10-05 12:44 | XMS_ITS ---
Author Name Agatha Mayorga NP Address [address] [place] [address] Phone [phone] [facility] Care Team Providers Care Damage Cutter Name Role Phone Agatha Mayorga Unavailable [phone] VANITA MOLINA Unavailable [phone] TRIP GOETZ Unavailable [phone] MYAH ELDER Unavailable [phone] Elijah Hunter Unavailable [phone] DEVIN ESTRELLA Unavailable [phone] XOCHITL TAVAREZ Unavailable [phone] January Unavailable [phone] Neil Velazquez Unavailable [phone] Reason for Referral Not Available Allergies, adverse [...] AT BEDTIME 2022 No Data Available Nystatin [id number] UNIT/GM Crm APPLY TO AFF ECTED AREA [...] 2023-02-24 2024-01-30 BD UF MICRO PEN NEEDLE [id number] DIRECTED INJECTS 4 TIMES A DAY 2023-03-19 [...] StableRosuvastat in, Lantus, Humalog Has omnipod insulin uparP7C 7.7% Monitor BG routinely, low carb diet, [...] Pain Assessment - NO pain present (1126F) [facility] [place] Pain Assessment - NO pain present (1126F) [facility] [place] Pain Assessment - NO pain present (1126F) [facility] [place] Pain Assessment - NO pain present (1126F) [facility] [place] Pain Assessment - NO pain present (1126F) [facility] [place] Pain Assessment - NO pain present (1126F) [facility] [place] Pain Assessment - NO pain present (1126F) [facility] [place] Pain Assessment - NO pain present (1126F) [facility] [place] Pain Assessment - NO pain present (1126F) [facility] [place]20[place] Presence of insulin pump (external) (internal)Migraine, unspecified, not intractable, without status migrainosusType 2 diabetes mellitus with other specified complicationHyperlipidemia, unspecifiedUnspecified dementia without behavioral disturbanceOveractive bladderObesity, unspecifiedMajor depressive disorder, single episode, unspecifiedAnxiety disorder, unspecified Estab. patient 30-39min; chronic exacerbation, 2 stable chronic or 1 acute illness add add modifier 95 for video, (do not use for phone, instead use 34818-01) [facility] [place] Migraine, unspecified, not intractable, without status migrainosusType 2 diabetes mellitus with other specified complicationHyperlipidemia, unspecifiedUnspecified dementia without behavioral disturbanceMajor depressive disorder, recurrent, moderateOveractive bladderObesity, unspecifiedAnxiety disorder, unspecified Estab. patient 30-39min; chronic exacerbation, 2 stable chronic or 1 acute illness add add modifier 95 for video, (do not use for phone, instead use 78029-69) [facility] [place] Estab. patient 30-39min; chronic exacerbation, 2 stable chronic or 1 acute illness add add modifier 95 for video, (do not use for phone, instead use 07929-74) [facility] [place] Estab. patient 30-39min; chronic exacerbation, 2 stable chronic or 1 acute illness add add modifier 95 for video, (do not use for phone, instead use 94467-17) [facility] [place] Estab. patient 30-39min; chronic exacerbation, 2 stable chronic or 1 acute illness add add modifier 95 for video, (do not use for phone, instead use 32125-51) [facility] [place] Estab. patient 30-39min; chronic exacerbation, 2 stable chronic or 1 acute illness add add modifier 95 for video, (do not use for phone, instead use 21752-90) [facility] [place] Estab. patient 30-39min; chronic exacerbation, 2 stable chronic or 1 acute illness add add modifier 95 for video, (do not use for phone, instead use 68653-74) [facility] [place] Estab. patient 30-39min; chronic exacerbation, 2 stable chronic or 1 acute illness add add modifier 95 for video, (do not use for phone, instead use 66073-77) [facility] [place] 05[place] Estab. patient 30-39min; chronic exacerbation, 2 stable chronic or 1 acute illness add add modifier 95 for video, (do not use for phone, instead use 86242-19) [facility] [place] 05[place] Estab. patient 30-39min; chronic exacerbation, 2 stable chronic or 1 acute illness add add modifier 95 for video, (do not use for phone, instead use 61890-01) [facility] [place] Estab. patient 30-39min; chronic exacerbation, 2 stable chronic or 1 acute illness add add modifier 95 for video, (do not use for phone, instead use 90681-35) [facility] [place] 01/[place]/2024 Migraine, unspecified, not intractable, without status [...] (do not use for phone, instead use 13442-03) [facility] [place] 01/30/2024 Estab. patient 30-39min; chronic exacerbation, 2 stable chronic or 1 acute illness add add modifier 95 for video, (do not use for phone, instead use 75400-22) [facility] [place] 01[place] Estab. patient 30-39min; chronic exacerbation, 2 stable chronic or 1 acute illness add add modifier 95 for video, (do not use for phone, instead use 28918-02) [facility] [place] 01[place] Estab. patient 30-39min; chronic exacerbation, 2 stable chronic or 1 acute illness add add modifier 95 for video, (do not use for phone, instead use 66273-68) [facility] [place] 01[place]/20[place] Estab. patient 30-39min; chronic exacerbation, 2 stable chronic or 1 acute illness add add modifier 95 for video, (do not use for phone, instead use 12040-71) [facility] [place] 01[place] Estab. patient 30-39min; chronic exacerbation, 2 stable chronic or 1 acute illness add add modifier 95 for video, (do not use for phone, instead use 42243-92) [facility] [place] 01[place] Estab. patient 30-39min; chronic exacerbation, 2 stable chronic or 1 acute illness add add modifier 95 for video, (do not use for phone, instead use 05979-33) [facility] [place] 01[place]/20[place] Estab. patient 30-39min; chronic exacerbation, 2 stable chronic or 1 acute illness add add modifier 95 for video, (do not use for phone, instead use 93724-44) [facility] [place] 01[place] Estab. patient 30-39min; chronic exacerbation, 2 stable chronic or 1 acute illness add add modifier 95 for video, (do not use for phone, instead use 07553-32) [facility] [place] 01/[place] Estab. patient 20-29min; 1 stable chronic or 2 minor; add add modifier 95 for video, modifier 93 for phone [facility] [place] 12/13/2024 Migraine, unspecified, not intractable, [...] 95 for video, modifier 93 for phone [facility] [place] 12/13/2024 Estab. patient 20-29min; 1 stable chronic or 2 minor; add add modifier 95 for video, modifier 93 for phone [facility] [place] Estab. patient 20-29min; 1 stable chronic or 2 minor; add add modifier 95 for video, modifier 93 for phone [facility] [place] 12/13/20[place] Estab. patient 20-29min; 1 stable chronic or 2 minor; add add modifier 95 for video, modifier 93 for phone [facility] [place]/13/20[place] Estab. patient 20-29min; 1 stable chronic or 2 minor; add add modifier 95 for video, modifier 93 for phone [facility] [place] 12/13/2024 Estab. patient 20-29min; 1 stable chronic or 2 minor; add add modifier 95 for video, modifier 93 for phone [facility] [place] 12/13/2024 Vital Signs Date of [...] tive Time Current Smoking Status Never smoker 2025-09-13 4 Sex Female Gender identity Woman History [...] (do not use for phone, instead use 44489-83) [id number] 2022-08-13 No Data Available No Data Availa ble Estab. patient 30-39min; chronic exacerbation, 2 stable chronic or 1 acute illness add add modifier 95 for video, (do not use for phone, instead use 84674-86) [id number] 2023-05-22 No Data Available No Data Availa [...] (do not use for phone, instead use 27787-56) 21636 2024-01-30 No Data Available No Data Availa [...] 95 for video, modifier 93 for phone 42747 2024-12-13 No Data Available No Data Availa [...] ty pe 2, 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, on intermediate manager insulin pumpMigrainesHyperlipidemia associated with type 2 diabetes [...] education needs that may arise.Has omnipod insulin cnmxX9C 7.7% last monthBlood sugar varies, since adding [...] arise.Emgality monthlyNeurology - Dr. Magallanes omnipod insulin [id number] 7.7% last monthBlood sugar varies, since adding [...] Dr. JohnsonRosuvastatin, Lantus, Humalog Has omnipod insulin [id number] 7.7% Monitor BG routinely, low carb diet, [...] on 12/09/24.StableRosuvastatin, Lantus, Humalog Has omnipod insulin qkwsW2H 7.7% Monitor BG routinely, low carb diet, [...]
--- OUTSIDE RECORDS SUMMARY | 2025-10-05 12:44 | XMS_ITS | Clinical Summary ---
Author Organization [facility] Address [address] [address] Phone Care Team Providers Care Abattoir Manager Name Role Phone Elijah Hunter MD Primary Care Provider [phone] Social History Tobacco Use Types Packs/Day Years [...] topic Medical Devices Not on file Insurance [facility] MEDICARE REPLACEMENT [facility] MEDIC[facility] REPLACEMENT [place] [id number] [facility] MEDIC[facility] REPLACEMENT [place] [id number] [facility] REPLAC[facility] [place] [id number] [facility] MED[facility] REPLACEMENT [place] [id number] [facility] MED[facility] REPLACEMENT Care Teams Abattoir Manager Relationship Specialty Start Date End Date Elijah Hunter MD [address] [place] [address] [place] [address] PCP - General Internal Medicine 08/02/19 Additional Source Comments The information contained in this document represents components of the legal health record. It is not the complete legal health record.[facility]
[2025-10-05 13:08] LABS: MANUAL DIFF FLAG NO
[2025-10-05 13:24] LABS: Hematocrit 38.6 % (37.0-47.0); Hemoglobin 13.0 g/dl (12.0-16.0); Imm Gran Abs Auto 0.02 X10*3/uL (0.00-0.03); Imm Gran Pct Auto 0.4 % (0.0-0.4); Lymphocytes Absolute Auto 1.8 X10*3/uL (1.2-4.9); Mean Corpuscular HGB Conc 33.7 g/dl (31.0-35.0); Mean Corpuscular Hemoglobin 30.5 pg (27.0-33.0); Mean Corpuscular Volume 90.6 fL (80.0-98.0); NRBC Abs Auto 0.000 X10*3/uL (0.0-0.012); NRBC Pct Auto 0.0 /100WBC (0.0-0.2); Platelet Count 138 X10*3/uL (160-400); Red Blood Count 4.26 X10*6/uL (4.20-5.50); White Blood Count 5.2 X10*3/uL (4.8-10.8)
[2025-10-05 13:27] LABS: Appearance Urine Cloudy; Glucose Urine UA Negative (Negative); PH 6.0 (5.0-9.0); Specific Gravity - Urine 1.020 (1.005-1.025); UMIC TRIGGER UACC YES
[2025-10-05 13:29] LABS: UACC Culture Trigger YES
[2025-10-05 13:48] LABS: Alanine Aminotransferase 29 U/L (0-31); Albumin Level 4.1 g/dL (3.5-5.0); Alkaline Phosphatase 115 U/L (39-117); Anion Gap 10 (12-20); Aspartate Amino Transferase 41 U/L (5-31); Blood Urea Nitrogen 29 mg/dL (9-16); Calcium 9.8 mg/dL (8.4-10.2); Carbon Dioxide 30 mmol/L (22-29); Chloride 108 mmol/L (96-108); Cholesterol 104 mg/dL (<200); Estimated Glomerular Filt Rate > 60; HDL Cholesterol 44 mg/dL (>40); Potassium 4.5 mmol/L (3.3-5.1); Sodium 143 mmol/L (135-145); Total Protein 6.8 g/dL (6.5-8.0); Triglycerides 116 mg/dL (<150)
[2025-10-05 14:08] LABS: Free T4 (Free Thyroxine) 1.59 ng/dL (0.71-1.85); Thyroid Stimulating Hormone 0.02 uIU/mL (0.32-4.0)
[2025-10-05 14:17] LABS: Microalbum/Creatinine Ratio Ur 15.3 ug/mg cr (<30)
[2025-10-05 14:19] LABS: Folate 9.6 ng/mL (> or = 4.0); Vitamin B12 380 pg/mL (200-900)
== END 2025-10-05 12:43 | disposition home or self-care (01) ==
LOC: HO.LAB 12:42
PROVIDERS: PCP Internal Medicine; Visit Provider Internal Medicine
DX: E11.9 Type 2 diabetes mellitus without 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s (principal); E03.9 Hypothyroidism, unspecified; D64.9 Anemia, unspecified; E78.00 Pure hypercholesterolemia, unspecified; E55.9 Vitamin D deficiency, unspecified; E53.8 Deficiency of other specified B group vitamins; R30.0 Dysuria
CPT/HCPCS: 36415; 80053; 80061; 81001; 82043; 82306; 82570; 82607; 82746; 83036; 84439; 84443; 85025; 87086; 87088; 87147; 87186

== ENCOUNTER 2025-10-10 13:40 | Outpatient (AMB) | payer OTHER, SELFPAY ==
--- NOTE | 2025-10-10 13:46 | MHC.PC.OV ---
Vital Signs 10/10/25 13:47 Height 5 ft 1 in Weight 146 lb BMI 27.6 BP 100/56 L Blood Pressure Location Lt brachial Position Sitting Pulse 95 Pulse Source Pulse Oximeter Pulse Oximetry (%) 95 Oxygen Delivery Method Room Air Intake Visit Reasons: 4 Months Senior Clinical Research Scientist Required: No Accompanied by: Self / Same As Patient Allergies francisco Allergy (Severe, Verified 10/10/25 14:29) Rash Penicillins Allergy (Intermediate, Verified 10/10/25 14:29) RASH/HIVES Medication List - Last Reconciled 10/10/25 by Elijah Hunter MD [DDisposable Underwear Heavy Absorbency Large (2) - Personal As directed] [Disposable Underpad 30 x 30 Heavy Flow As directed] [ADULT DIAPERS/BRIEFS As directed] ammonium lactate 12% (AmLactin) 1 appl topical DAILY aspirin 81 mg PO DAILY atogepant (Qulipta) 30 mg PO DAILY betamethasone dipropionate 0.05% 1 appl topical DAILY blood sugar diagnostic (OneTouch Ultra Test strips) 4 times daily for sensor failure or to confirm sensor reading blood sugar diagnostic (Contour Plus Test Strip) As directed to check blood sugars four times a day in case of sensor failure blood-glucose meter dispense as one touch ultra to go with one touch ultra strips blood-glucose meter (Contour Plus Blue Meter) As directed to check blood sugars four times a day in case of sensor failure blood-glucose sensor (Dexcom G7 Sensor device) every 10 days blood-glucose,edger tailer,cont (Dexcom G7 Epoxy Specialist) As directed calcium gluconate 60 mg PO DAILY 90 days capsaicin 0.1% (Arthritis Pain Relief (capsaicin)) 1 appl topical TID cholecalciferol (vitamin D3) 125 mcg PO DAILY ciclopirox 8% 1 appl topical BEDTIME 4 months clonazepam 1 mg PO BEDTIME compr.stocking,knee,long,large As directed diaper,brief,adult,disposable (Overnight Underwear Large) As directed PULL UPS diclofenac sodium 1% (Voltaren Arthritis Pain) 2 grams topical DAILY donepezil 5 mg PO DAILY dorzolamide-timolol (PF) 2-0.5 % 1 drp ophthalmic (eye) BID fluoxetine 20 mg PO BID fluticasone propionate 50 mcg/actuation 2 sprays intranasal DAILY PRN gabapentin 300 mg PO TID 30 days hydroxyzine HCl 25 mg PO TID PRN insulin glargine (Lantus Solostar U-100 Insulin) 9 units (0.09 mL) subcut QPM PRN 30 days insulin lispro (Humalog U-100 Insulin) subcutaneously daily; up to 76 units daily via insulin pump insulin pump cart,auto,BT,G6/7 (Omnipod 5 G6-G7 Pods (Gen 5) subcutaneous cartridge) As directed every 3 days insulin pump cart,auto,BT-cntr (Omnipod 5 G6 Intro Kit (Gen 5) subcutaneous cartridge with controller) As directed insulin syringe-needle U-100 As directed up to quid for pump failure or glucose correction lancets as directed qid to go with one touch ultra stips lancets (Microlet Lancet) As directed to check blood sugars four times a day in case of sensor failure lancets (Comfort Touch Plus Pressure Activated Safety Lancets) As directed to check blood sugars four times a day in case of sensor failure lancing device with lancets (Microlet 2 Lancing Device kit) As directed to check blood sugars four times a day in case of sensor failure latanoprostene bunod 0.024% (Vyzulta) 1 drp ophthalmic (eye) BEDTIME levothyroxine 125 mcg PO QAM magnesium oxide 400 mg PO BEDTIME melatonin 6 mg PO BEDTIME PRN methylcellulose (laxative) (Fiber Therapy (methylcellulose)) 1,000 mg (2 x 500 mg) PO DAILY PRN mirtazapine 30 mg PO QPM miscellaneous medical supply Wipes miscellaneous; 100 wipebox/ 3 boxes mupirocin 2% 1 appl topical BID pen needle, diabetic (Comfort EZ Pen [place]) As directed injects 4 times a day [Personal Cleansing Wipes (2) As directed] plecanatide (Trulance) 3 mg PO DAILY quetiapine 75 mg PO BEDTIME rabeprazole 20 mg PO BID rosuvastatin 40 mg PO DAILY scopolamine base 1 patch transdermal Q3D PRN simethicone (Anti-Gas Ultra Strength) 180 mg PO QID Trulicity (dulaglutide) 0.75 mg (0.5 mL) subcut QWEEK 28 days NS [UNDERPADS As directed] Tobacco use date assessed: 10/10/25 Fall risk assessment: No Falls in past year Last assessed Fall Risk: 10/10/25 Dental Screening Dental Screen Date: 10/10/25 Did you have a dental visit in the last 12 months?: No Did you have a dental problem in the last 6 months where you did not have access to dental care?: No Was dental information given to patient?: Patient declined HPI 4 Months HPI Details Patient comes in today for her follow up visit - is accompanied today by one of her other daughters States that she feels okay Patient denies any headaches or dizziness Denies any chest pains, no increased SOB No nausea/vomiting, no abdominal pain No change in bowel habits noted - states that her bowel movements have been better controlled on her current regimen and she continues to follow up with GI for her abdominal and bowel issues Adds that she has been experiencing some mild dysuria and urinary urgency for the past few days She had her follow up labs done a few days ago - to discuss her results [facility] Medical History (Updated 10/10/25 @ 16:46 by Elijah Hunter MD) Overweight (BMI 25.0-29.9) Insulin pump in place Elevated LFTs Type 2 diabetes mellitus with diabetic polyneuropathy Abdominal pain Simple ovarian cyst Diabetes type 2, uncontrolled Overactive bladder Diabetes mellitus Urge incontinence of urine Uninhibited neurogenic bladder Delayed gastric emptying Type 2 diabetes mellitus 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, with superintendent terminal current use of insulin pump Type 2 diabetes mellitus 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 Nausea and vomiting Sinusitis History of stroke Colon cancer screening Right ankle swelling Cellulitis of right lower leg Swelling of right lower extremity Left leg pain Left ankle sprain Ankle fracture, left Chronic pain syndrome Dementia 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 Diabetic neuropathy UTI (urinary tract infection) Insomnia Glaucoma Migraine Acquired hypothyroidism Hearing impairment CVA (cerebral vascular accident) Blind left eye Localized swelling, mass and lump, neck Urinary tract infection with pyuria Elevated liver enzymes Depression Anxiety Urinary incontinence in female Dementia Osteoarthritis Lumbar spondylosis Pure hypercholesterolemia Pain of right thumb Allergic rhinitis Hypertension Obesity (BMI 30-39.9) Vitamin D deficiency Dyslipidemia Diabetic polyneuropathy associated with type 2 diabetes mellitus Diabetic 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 type 2 diabetes mellitus jail (current) use of insulin Right sided abdominal pain Dizziness and giddiness Orthostatic hypotension Charmaine albicans infection Surgical History History of carpal tunnel release History of pubovaginal sling Hx of eye surgery Hx of cystoscopy Hx of hysterectomy Hx of cholecystectomy History of esophagogastroduodenoscopy (EGD) Hx of colonoscopy Family History Father Diabetes Mother Heart problem Brother Diabetes Social History Housing: Apartment Are you a primary health care facilities inspector to a significant other at home: No Do you presently have visiting nurse or other home services: No Alcohol intake: never Patient Tobacco Use Status: Never used Tobacco e-Cigarette/Vaping Use: Never Used Second Hand Smoke Exposure: No service: No Current occupational status: disabled Gender identity: Female Cognitive needs: Yes (Cane, walker) Hearing needs: No Vision needs: Yes (Glasses) Female Reproductive History Menstrual Age of Menarche: 10 Questionnaire PHQ-9 Over the last 2 weeks, how often have you been bothered by any of the following problems? 1. Little interest or pleasure in doing things: not at all 2. Feeling down, depressed, or hopeless: several days 3. Trouble falling or staying asleep, or sleeping too much: several days 4. Feeling tired or having little energy: more than half the days 5. Poor appetite or overeating: more than half the days 6. Feeling bad about yourself - or that you are a failure or have let yourself or your family down: not at all 7. Trouble concentrating on things, such as reading the newspaper or watching television: more than half the days 8. Moving or speaking so slowly that other people could have noticed. Or the opposite - being so fidgety or restless that you have been moving around a lot more than usual: more than half the days 9. Thoughts that you would be better off or of hurting yourself in some way: not at all Total score: 10 Depression Screening Interpretation: Positive Depression Screening Follow-up: Existing condition and In treatment Depression Screening Done: Yes 52927 - PHQ-9 Billing: Yes Source: Developed by Drs. Neil Wayne, Lakisha Bell, Latrell Serra and colleagues, with an educational sophie from [employer]. Thrive Questionnaire Date Thrive assessed: 10/10/25 I am a: Parent/Caregiver What is your living situation today?: I have a steady place to live Within the past 12 months, did the food you bought not last and you didn't have the money to get more?: Sometimes True Within the past 12 months, did you worry whether your food would run out before you got money to buy more?: Sometimes True Do you have trouble paying for medicines?: No Do you have trouble getting transportation to medical appointments?: No Do you have trouble paying your heating and electricity bill?: Yes Do you have trouble taking care of your child, family member or friend?: No Do you have trouble with day-to-day activities such as bathing, preparing meals, shopping, managing finances, etc.?: No Are you currently unemployed and looking for a job?: No Are you interested in more education?: No Please select the resources that you would like help with: None Currently or been in a relationship where the following occur: No concerns reported THRIVE Score: 3 AUDIT C Alcohol Use Questionnaire (AUDIT-C) 1. How often do you have a drink containing alcohol?: Never 3. How often do you have six or more drinks on one occasion?: Never Total Score: 0 Score Reviewed/Action Taken: Yes REJI-7 AMB Questionnaire REJI-7 Date REJI - 7 assessed: 10/10/25 Feeling nervous, anxious, or on edge: 1 = Several days Not being able to stop or control worryin = Several days Worrying too much about different things: 1 = Several days Trouble relaxin = Several days Being so restless that it is hard to sit still: 1 = Several days Becoming easily annoyed or irritable: 1 = Several days Feeling afraid as if something awful might happen: 1 = Several days Total REJI-7 score (0-4 normal; 5-9 mild; 10-14 moderate; 15-21 severe): 7 Source: Developed by Drs. Neil Wayne, Lakisha Bell, Latrell Serra and colleagues, with an educational sophie from [employer]. Review of Systems Const Details: ROS is obtained through the help of patient's daughter due to patient's dementia as well as limitations due to language barrier Denies chills, Reports fatigue, Denies fever(s), Denies headache(s) (controlled on current Rx) and Reports weight loss ENT Denies dysphagia, Reports dizziness (occasionally), Denies otalgia, Denies headache(s) (controlled on current Rx), Reports neck pain (chronic), Denies odynophagia and Denies sore throat Card Denies chest pain, Denies palpitations and Reports dyspnea on exertion (mild) Resp Denies chest congestion, Denies cough, Reports dyspnea on exertion (mild) and Denies wheezing GI Denies abdominal pain, Denies bloating, Reports constipation (chronic - currently better controlled on Rx), Denies dysphagia, Denies heartburn, Denies diarrhea, Denies nausea, Denies odynophagia and Denies vomiting Denies hematuria, Denies difficulty voiding, Reports nocturia, Reports dysuria (mild, over the past few days), Reports urinary incontinence and Reports urinary urgency Musc Reports back pain, Reports arthralgias (increased lately, especially in her knees - pain feels worse in AM) and Reports neck pain (chronic) Skin/Breast Denies rash Neuro Reports dizziness (occasionally), Denies headache(s) (controlled on current Rx), Reports memory loss and Denies tremor(s) Psych Reports anxiety (increased lately - per daughter), Reports memory loss and Denies mood swings Endo Reports fatigue and Denies palpitations Ethan/Lymph Denies easy bruising Aller/Immun Denies wheezing Physical exam (Primary Care) Vital Signs: Last Vital Signs Pulse 95 10/10/25 13:47 BP 100/56 L 10/10/25 13:47 Pulse Ox 95 10/10/25 13:47 Oxygen Delivery Method Room Air 10/10/25 13:47 BMI result Body Mass Index 27.6 Tobacco/Smoking Status: Tobacco use Status Tobacco use date assessed 10/10/25 10/10/25 13:50 Patient Tobacco Use Status Never used Tobacco 10/10/25 13:50 e-Cigarette/Vaping Use Never Used 10/10/25 13:50 PHQ-9: PHQ-9 Score PHQ-9: Total score 10 10/10/25 14:31 Depression Screening Interpretation: Positive Depression Screening Follow-up: Existing condition and In treatment Thrive Assessment: Date of Thrive Assessment Date Thrive assessed 10/10/25 10/10/25 13:50 Currently or been in a relationship where the following occur: No concerns reported Const General: no acute distress and alert HENMT Ears: TM's normal bilaterally and EAC's normal Throat: Yes posterior oropharynx normal and Yes tonsils normal (no TP congestion) Neck Neck: Yes supple and No lymphadenopathy Thyroid: Thyroid normal Resp Auscultation: clear to auscultation bilaterally, no rales and no wheezes Cardio Rate: regular rate Rhythm: regular rhythm Heart sounds: no murmurs GI Palpation (GI): Soft to palpation and nontender Auscultation: normal bowel sounds General: Yes no CVA tenderness Back/Spine/Pelvis Back: no CVA tenderness Cervical Spine: Cervical spine tenderness Thoracic/Lumbar Spine: lumbar spinal tenderness Skin Rashes: no rashes Extrem General: Yes no clubbing, cyanosis or edema Right lower extremity: knee Details: tenderness; no swelling Left lower extremity: knee Details: tenderness; no swelling Results Reviewed Results Reviewed: Laboratory Tests 10/05/25 10/05/25 12:57 13:05 WBC 5.2 Hgb 13.0 Hct 38.6 Plt Count 138 L Sodium 143 Potassium 4.5 Creatinine 0.72 Estimated GFR > 60 Fasting Glucose 130 H Hemoglobin A1c % 6.2 H Calcium 9.8 AST 41 H ALT 29 Triglycerides 116 Cholesterol 104 LDL Cholesterol, Calc 37 HDL Cholesterol 44 Vitamin B12 380 25-OH Vitamin D Total 46.0 TSH 0.02 L Free T4 1.59 Ur Specific [place] 1.020 Urine Protein Trace Urine Glucose (UA) Negative Urine Blood Negative Urine Nitrite Positive H Ur Leukocyte Esterase Large (3+) H Microalb/Creat Ratio 15.3 Coding Level of Care Code Est Pt Level 4 (40450) Add On Problem Visit Only Diagnoses Type 2 diabetes mellitus with diabetic polyneuropathy, with long-term current use of insulin E11.42; Z79.4 Diabetes mellitus halfway insulin use: with superintendent terminal use 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 edema associated with type 2 diabetes mellitus E11.3393 Diabetes mellitus macular edema: without macular edema Diabetic retinopathy severity: with moderate nonproliferative retinopathy Laterality: bilateral Pure hypercholesterolemia E78.00 Migraine without status migrainosus, not intractable, unspecified migraine type G43.909 Intractability: not intractable Migraine type: unspecified Status migrainosus presence: without status migrainosus Dementia 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 F02.81 Gastroesophageal reflux disease without esophagitis K21.9 Esophagitis presence: without esophagitis Chronic idiopathic constipation K59.04 Elevated LFTs R79.89 Acquired hypothyroidism E03.9 Allergic rhinitis, unspecified seasonality, unspecified trigger J30.9 Allergic rhinitis seasonality: unspecified Allergic rhinitis trigger: unspecified Diffuse idiopathic skeletal hyperostosis of cervical spine M48.12 Lumbar spondylosis M47.816 Primary osteoarthritis involving multiple joints M89.49 Osteoarthritis location: multiple joints Osteoarthritis type: primary Vitamin D deficiency E55.9 Osteopenia of neck of femur, unspecified laterality M85.859 Laterality: unspecified laterality Osteopenia location: femoral neck Spastic neurogenic bladder N31.8 Urinary tract infection due to Klebsiella species N39.0; B96.89 Glaucoma of both eyes, unspecified glaucoma type H40.9 Glaucoma type: unspecified Laterality: bilateral Insomnia, unspecified type G47.00 Insomnia type: unspecified Anxiety F41.9 Episode of recurrent major depressive disorder, unspecified depression episode severity F33.9 Active/Remission status: currently active Depression Type: major depressive disorder Major depression episode severity: unspecified Major depression recurrence: recurrent Overweight (BMI 25.0-29.9) E66.3 Additional Codes PHQ-9 - 24201 - PHQ-9 Billing: Yes ([id number]) Assessment & Plan Assessment & Plan (1) Type 2 diabetes mellitus with diabetic polyneuropathy: Comment: insulin pump Code(s): E11.42 - Type 2 diabetes mellitus with diabetic polyneuropathy Category: Medical Qualifiers: Diabetes mellitus halfway insulin use: with superintendent terminal use Qualified Code(s): E11.42 - Type 2 diabetes mellitus with diabetic polyneuropathy; Z79.4 - superintendent terminal (current) use of insulin Plan: Her HgbA1c was at 6.2% on her labs done a few days ago (in-office HgbA1c was previously at 6.3% a few months ago) - goal is at least <7.0% Reinforced diabetic diet Continue Humalog U-100 0 to 76 units SQ daily via her Omnipod (insulin pump) and Trulicity 0.75 mg SQ once a week Follow up with endocrinology (Dr. Velazquez) as scheduled She is also now following up with [facility] for her foot issues and for her diabetic foot exam regularly (2) Diabetic 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 type 2 diabetes mellitus: Code(s): E11.319 - Type 2 diabetes mellitus with unspecified diabetic retinopathy without macular edema Category: Medical Qualifiers: Diabetes mellitus macular edema: without macular edema Diabetic retinopathy severity: with moderate nonproliferative retinopathy Laterality: bilateral Qualified Code(s): E11.3393 - Type 2 diabetes mellitus with moderate nonproliferative diabetic retinopathy without macular edema, bilateral Plan: Reinforced strict diabetes control to help slow down disease progression Follow up with ophthalmology as scheduled (3) Pure hypercholesterolemia: Code(s): E78.00 - Pure hypercholesterolemia, unspecified Category: Medical Plan: Results of her labs done a few days ago reviewed and discussed with patient and her daughter Reinforced low cholesterol diet Continue Rosuvastatin 40 mg QD Will recheck her labs and fasting lipids in 4 months for follow up (4) Migraine: Code(s): G43.909 - Migraine, unspecified, not intractable, without status migrainosus Category: Medical Qualifiers: Intractability: not intractable Migraine type: unspecified Status migrainosus presence: without status migrainosus Qualified Code(s): G43.909 - Migraine, unspecified, not intractable, without status migrainosus Plan: Continue Qulipta 30 mg QD - her headaches have been well-controlled on her current Rx Follow up with neurology as scheduled (5) Dementia 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: Comment: Frontotemporal dementia Code(s): F02.81 - Dementia in other diseases classified elsewhere, unspecified severity, with behavioral disturbance Category: Medical Plan: Continue Donepezil 10 mg QD Follow up with neurology as scheduled (6) GERD (gastroesophageal reflux disease): Code(s): K21.9 - Gastro-esophageal reflux disease without esophagitis Category: Medical Qualifiers: Esophagitis presence: without esophagitis Qualified Code(s): K21.9 - Gastro-esophageal reflux disease without esophagitis Plan: Dietary restrictions reinforced Continue Rabeprazole 20 mg BID and Simethicone 180 mg QID PRN (7) Chronic idiopathic constipation: Code(s): K59.04 - Chronic idiopathic constipation Category: Medical Plan: Have again encouraged patient to increase her oral fluids and dietary fiber intake Continue Trulance 3 mg QD, Fiber Therapy 1000 mg QD, Colace 100 mg QD PRN and Bisacodyl 10 mg Q HS PRN - states that her bowel movements have been well-controlled so far on her current regimen Follow up with GI as scheduled (8) Elevated LFTs: Code(s): R79.89 - Other specified abnormal findings of blood chemistry Category: Medical Plan: Her serum AST was still slightly elevated on her recent labs; ALT is now normal - this is most likely related to her weight Will continue to monitor her LFTs regularly (9) Acquired hypothyroidism: Code(s): E03.9 - Hypothyroidism, unspecified Category: Medical Plan: Her serum TSH remains suppressed but free T4 is normal on her recent labs Continue Levothyroxine 125 mcg QD Will recheck her TFTs in 4 months for follow up (10) Allergic rhinitis: Code(s): J30.9 - Allergic rhinitis, unspecified Category: Medical Qualifiers: Allergic rhinitis seasonality: unspecified Allergic rhinitis trigger: unspecified Qualified Code(s): J30.9 - Allergic rhinitis, unspecified Plan: Continue Fluticasone 50 mcg nasal spray QD PRN (11) Diffuse idiopathic skeletal hyperostosis of cervical spine: Code(s): M48.12 - Ankylosing hyperostosis [[place]], cervical region Category: Medical Plan: Cervical spine CT done back in 2019 revealed (+) diffuse idiopathic skeletal hyperostosis She was on Tramadol 50 mg Q HS PRN although she has not taken this in a while now as it was not helping She has reportedly been doing okay on Gabapentin 300 mg TID lately Follow up with pain management as scheduled (12) Lumbar spondylosis: Code(s): M47.816 - Spondylosis without myelopathy or radiculopathy, lumbar region Category: Medical Plan: Reinforced activity and weight-lifting restrictions Gabapentin is also reportedly helping with her low back pain (13) Osteoarthritis: Code(s): M19.90 - Unspecified osteoarthritis, unspecified site Category: Medical Qualifiers: Osteoarthritis location: multiple joints Osteoarthritis type: primary Qualified Code(s): M89.49 - Other hypertrophic osteoarthropathy, multiple sites Plan: Involves multiple joints - have advised patient's daughter that her knee pains are likely due to OA Patient has been using OTC pain patches PRN and taking OTC Tylenol PRN although she has been cautioned against taking too much Tylenol due to her elevated LFTs in the past Will consider referral to orthopedics if her joint symptoms/pain get worse (14) Vitamin D deficiency: Code(s): E55.9 - Vitamin D deficiency, unspecified Category: Medical Plan: Continue Vitamin D3 125 mcg QD (15) Osteopenia: Code(s): M85.80 - Other specified disorders of bone density and structure, unspecified site Category: Medical Qualifiers: Laterality: unspecified laterality Osteopenia location: femoral neck Qualified Code(s): M85.859 - Other specified disorders of bone density and structure, unspecified thigh Plan: Her BMD done back in March 2025 revealed (+) osteopenia Patient's daughter is advised to make sure she takes her oral Calcium and vitamin D supplements daily Will continue to monitor her BMD regularly every 2 to 3 years (16) Spastic neurogenic bladder: Code(s): N31.8 - Other neuromuscular dysfunction of bladder Category: Medical Plan: Continue Myrbetriq ER 50 mg QD Patient has failed multiple other Rx and urology has reportedly considered injecting Botox into her urinary bladder muscles to help control her symptoms better if Rx are no longer helping Follow up with urology as scheduled (17) Urinary tract infection due to Klebsiella species: Code(s): N39.0 - Urinary tract infection, site not specified; B96.89 - Other specified bacterial agents as the cause of diseases classified elsewhere Category: Medical Plan: Her recent urine C/S grew >809947 cfu of Klebsiella pneumonia, sensitive to Sulfa but only intermediately sensitive to Nitrofurantoin Due to her recent urinary symptoms, will go ahead and start her on Bactrim DS 1 tablet BID x 7 days (18) Glaucoma: Code(s): H40.9 - Unspecified glaucoma Category: Medical Qualifiers: Glaucoma type: unspecified Laterality: bilateral Qualified Code(s): H40.9 - Unspecified glaucoma Plan: S/P left eye surgery last year Continue Dorzolamide-Timolol 22.3-6.8 mg/ml 1 drop to both eyes BID and Vyzulta 0.024% 1 drop into both eyes Q HS She is also on Xiidra 5% 1 drop to eye BID for dry eyes Follow up with [facility] as scheduled (19) Insomnia: Code(s): G47.00 - Insomnia, unspecified Category: Medical Qualifiers: Insomnia type: unspecified Qualified Code(s): G47.00 - Insomnia, unspecified Plan: Sleep hygiene reinforced Continue Melatonin 6 mg Q HS PRN Mirtazapine and Quetiapine also helps with her sleep at night (20) Anxiety: Code(s): F41.9 - Anxiety disorder, unspecified Category: Medical Plan: Continue Hydroxyzine 25 mg TID PRN and Clonazepam 1 mg Q HS (21) Depression: Code(s): F32.9 - Major depressive disorder, single episode, unspecified Category: Medical Qualifiers: Active/Remission status: currently active Depression Type: major depressive disorder Major depression episode severity: unspecified Major depression recurrence: recurrent Qualified Code(s): F33.9 - Major depressive disorder, recurrent, unspecified Plan: Continue Fluoxetine 20 mg BID, Mirtazapine 30 mg Q HS and Quetiapine 75 mg Q HS Follow up with psychiatry as scheduled (22) Overweight (BMI 25.0-29.9): Code(s): E66.3 - Overweight Category: Medical Plan: Reinforced diet; exercise and weight loss are not realistic in her case given her dementia and multiple medical and physical comorbidities Plan Follow up in 4 months Orders: Orders Hemoglobin A1c 4 Months E11.9 - Type 2 diabetes mellitus without 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s Comprehensive [place]. Panel Fast 4 Months E78.00 - Pure hypercholesterolemia, unspecified Complete Blood Count Auto Diff 4 Months D64.9 - Anemia, unspecified Vitamin B12 and Folate 4 Months E53.8 - Deficiency of other specified B group vitamins Vitamin D 25-OH Total 4 Months E55.9 - Vitamin D deficiency, unspecified UA CC w/rflx Micro + Cult 4 Months R30.0 - Dysuria Microalbumin, Random (w Creat) 4 Months E11.9 - Type 2 diabetes mellitus without 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s Thyroid Stimulating Hormone 4 Months E03.9 - Hypothyroidism, unspecified Lipid Panel 4 Months E78.00 - Pure hypercholesterolemia, unspecified Free T4 (Free Thyroxine) 4 Months E03.9 - Hypothyroidism, unspecified Medications: New sulfamethoxazole-trimethoprim 800-160 mg (Bactrim DS) 1 tab PO BID 14 tabs 0RF 7 days
[2025-10-10 13:47] VITALS: BP 100/56; PULSE 95; O2SAT 95; BMI 27.6
--- OUTSIDE RECORDS SUMMARY | 2025-10-10 15:50 | XMS_ITS ---
Author Name Agatha Mayorga NP Address [address] [place] [address] Phone [phone] [facility][note 3][facility] Care Team Providers Care Manager Nicu Name Role Phone Agatha Mayorga Unavailable [phone] VANITA MOLINA Unavailable [phone] TRIP GOETZ Unavailable [phone] MYAH ELDER Unavailable [phone] Elijah Hunter Unavailable [phone] DEVIN ESTRELLA Unavailable [phone] XOCHITL TAVAREZ Unavailable [phone] January Unavailable [phone] Neil Velazquez Unavailable [phone] Reason for Referral Not Available Allergies, adverse [...] AT BEDTIME 2022 No Data Available Nystatin 165506 UNIT/GM Crm APPLY TO AFF ECTED AREA [...] 2023-02-24 2024-01-30 BD UF MICRO PEN NEEDLE [id number] DIRECTED INJECTS 4 TIMES A DAY 2023-03-19 [...] StableRosuvastat in, Lantus, Humalog Has omnipod insulin [id number] 7.7% Monitor BG routinely, low carb diet, [...] (do not use for phone, instead use 26834-84) [facility], ([place]) 05/[place]/2023 Migraine, unspecified, not intractable, without status migrainosusType 2 diabetes mellitus with other specified complicationHyperlipidemia, unspecifiedUnspecified dementia without behavioral disturbanceMajor depressive disorder, recurrent, moderateOveractive bladderObesity, unspecifiedAnxiety disorder, unspecified Estab. patient 30-39min; chronic exacerbation, 2 stable chronic or 1 acute illness add add modifier 95 for video, (do not use for phone, instead use 90915-92) [facility] Estab. patient 30-39min; chronic exacerbation, 2 stable chronic or 1 acute illness add add modifier 95 for video, (do not use for phone, instead use 15558-64) [facility] ([place] 05[place]/20[place] Estab. patient 30-39min; chronic exacerbation, 2 stable chronic or 1 acute illness add add modifier 95 for video, (do not use for phone, instead use 02459-59) [facility] 05[place]/20[place] Estab. patient 30-39min; chronic exacerbation, 2 stable chronic or 1 acute illness add add modifier 95 for video, (do not use for phone, instead use 46577-36) [facility] ([place] 05[place]/20[place] Estab. patient 30-39min; chronic exacerbation, 2 stable chronic or 1 acute illness add add modifier 95 for video, (do not use for phone, instead use 49721-27) [facility] ([place] 05[place]22/20[place] Estab. patient 30-39min; chronic exacerbation, 2 stable chronic or 1 acute illness add add modifier 95 for video, (do not use for phone, instead use 01781-77) [facility] ([place] 05[place]22/20[place] Estab. patient 30-39min; chronic exacerbation, 2 stable chronic or 1 acute illness add add modifier 95 for video, (do not use for phone, instead use 93834-82) [facility], ([place]) 05/22/20[place] Estab. patient 30-39min; chronic exacerbation, 2 stable chronic or 1 acute illness add add modifier 95 for video, (do not use for phone, instead use 88492-49) [facility] Estab. patient 30-39min; chronic exacerbation, 2 stable chronic or 1 acute illness add add modifier 95 for video, (do not use for phone, instead use 77748-74) [facility] 05[place]22/20[place] Estab. patient 30-39min; chronic exacerbation, 2 stable chronic or 1 acute illness add add modifier 95 for video, (do not use for phone, instead use 44493-53) [facility] 01/[place]/2024 Migraine, unspecified, not intractable, [...] (do not use for phone, instead use 17998-12) [facility] Estab. patient 30-39min; chronic exacerbation, 2 stable chronic or 1 acute illness add add modifier 95 for video, (do not use for phone, instead use 78300-53) [facility] 01/30/20[place] Estab. patient 30-39min; chronic exacerbation, 2 stable chronic or 1 acute illness add add modifier 95 for video, (do not use for phone, instead use 74575-02) [facility] 01/30/20[place] Estab. patient 30-39min; chronic exacerbation, 2 stable chronic or 1 acute illness add add modifier 95 for video, (do not use for phone, instead use 54743-05) [facility] 01/30/20[place] Estab. patient 30-39min; chronic exacerbation, 2 stable chronic or 1 acute illness add add modifier 95 for video, (do not use for phone, instead use 27260-92) [facility] 01/[place]/20[place] Estab. patient 30-39min; chronic exacerbation, 2 stable chronic or 1 acute illness add add modifier 95 for video, (do not use for phone, instead use 42951-91) [facility] 01/[place]/20[place] Estab. patient 30-39min; chronic exacerbation, 2 stable chronic or 1 acute illness add add modifier 95 for video, (do not use for phone, instead use 57436-66) [facility] 01/[place]/20[place] Estab. patient 30-39min; chronic exacerbation, 2 stable chronic or 1 acute illness add add modifier 95 for video, (do not use for phone, instead use 34637-56) [facility] 01/[place]/20[place] Estab. patient 30-39min; chronic exacerbation, 2 stable chronic or 1 acute illness add add modifier 95 for video, (do not use for phone, instead use 33699-46) [facility] 01/[place]/20[place] Estab. patient 20-29min; 1 stable chronic or 2 minor; add add modifier 95 for video, modifier 93 for phone [facility] 12/13/2024 Migraine, unspecified, not intractable, without status [...] modifier 93 for phone [facility] 12/13/2024 Estab. patient 20-29min; 1 stable chronic or 2 minor; add add modifier 95 for video, modifier 93 for phone [facility] ([place]13/20[place] Estab. patient 20-29min; 1 stable chronic or 2 minor; add add modifier 95 for video, modifier 93 for phone [facility] [place]/13/20[place] Estab. patient [...] Time Current Smoking Status Never smoker 2025-09-13 9 Sex Female Gender identity Woman History [...] (do not use for phone, instead use 19754-67) [id number] 2022-08-13 No Data Available No Data Availa ble Estab. patient 30-39min; chronic exacerbation, 2 stable chronic or 1 acute illness add add modifier 95 for video, (do not use for phone, instead use 48182-47) [id number] 2023-05-22 No Data Available No Data Availa [...] (do not use for phone, instead use 85784-22) [id number] 2024-01-30 No Data Available No Data Availa [...] 95 for video, modifier 93 for phone [id number] 2024-12-13 No Data Available No Data Availa [...] mellitus ty pe 2, 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, on long term care social worker insulin pumpMigrainesHyperlipidemia associated with type 2 diabetes [...] education needs that may arise.Has omnipod insulin [id number] 7.7% last monthBlood sugar varies, since adding [...] arise.Emgality monthlyNeurology - Dr. Magallanes omnipod insulin [id number] 7.7% last monthBlood sugar varies, since adding [...] Dr. JohnsonRosuvastatin, Lantus, Humalog Has omnipod insulin [id number] 7.7% Monitor BG routinely, low carb diet, [...] on 12/09/24.StableRosuvastatin, Lantus, Humalog Has omnipod insulin [id number] 7.7% Monitor BG routinely, low carb diet, [...] with PCP and urology. Urology - Dr. Tirp Goetz, sees Myah Elder NP at same [...]
--- OUTSIDE RECORDS SUMMARY | 2025-10-10 15:51 | XMS_ITS | Clinical Summary ---
Author Organization [facility] Address [address] [address] Phone Care Team Providers Care Neurological Surgery Teacher Name Role Phone Elijah Hunter MD Primary Care Provider [phone] Social History Tobacco Use Types Packs/Day Years [...] topic Medical Devices Not on file Insurance [facility] MEDICARE REPLACEMENT [facility] MEDICARE REPLACEMENT [place] [id number] [facility] MEDICARE REPLACEMENT [place] [id number] [facility] MEDICARE REPLACEMENT [place] [id number] [facility] MEDICARE REPLACEMENT [place] [id number] [facility] [facility] [place] [facility] MEDICARE REPLACEMENT [facility] MEDICARE REPLACEMENT Care Teams Neurological Surgery Teacher Relationship Specialty Start Date End Date Elijah Hunter MD [address] [place] [address] [place] [address] PCP - General Internal Medicine 08/02/19 Additional Source Comments The information contained in this document represents components of the legal health record. It is not the complete legal health record.[facility]
== END 2025-10-10 14:39 | disposition home or self-care (01) ==
LOC: HO.HMCH 13:41
PROVIDERS: PCP Internal Medicine; Visit Provider Internal Medicine
DX: E11.42 Type 2 diabetes mellitus with diabetic polyneuropathy (principal); Z79.4 Long term (current) use of insulin; E11.3393 Type 2 diabetes mellitus with moderate nonproliferative diabetic retinopathy without macular edema, bilateral; E78.00 Pure hypercholesterolemia, unspecified; G43.909 Migraine, unspecified, not intractable, without status migrainosus; F02.81 Dementia in other diseases classified elsewhere, unspecified severity, with behavioral disturbance; K21.9 Gastro-esophageal reflux disease without esophagitis; K59.04 Chronic idiopathic constipation; R79.89 Other specified abnormal findings of blood chemistry; E03.9 Hypothyroidism, unspecified; J30.9 Allergic rhinitis, unspecified; M48.12 Ankylosing hyperostosis [Forestier], cervical region; M47.816 Spondylosis without myelopathy or radiculopathy, lumbar region; M89.49 Other hypertrophic osteoarthropathy, multiple sites; E55.9 Vitamin D deficiency, unspecified; M85.859 Other specified disorders of bone density and structure, unspecified thigh; N31.8 Other neuromuscular dysfunction of bladder; N39.0 Urinary tract infection, site not specified; B96.89 Other specified bacterial agents as the cause of diseases classified elsewhere; H40.9 Unspecified glaucoma

== ENCOUNTER → 2025-10-10 13:40 | Outpatient (BNVA) | payer OTHER, SELFPAY | PROVIDERS: PCP Internal Medicine; Visit Provider Internal Medicine | DX: E11.42 Type 2 diabetes mellitus with diabetic polyneuropathy (principal); E11.3393 Type 2 diabetes mellitus with moderate nonproliferative diabetic retinopathy without macular edema, bilateral; E78.00 Pure hypercholesterolemia, unspecified; G43.909 Migraine, unspecified, not intractable, without status migrainosus; F02.818 Dementia in other diseases classified elsewhere, unspecified severity, with other behavioral disturbance; K21.9 Gastro-esophageal reflux disease without esophagitis; K59.04 Chronic idiopathic constipation; R79.89 Other specified abnormal findings of blood chemistry; E03.9 Hypothyroidism, unspecified; J30.9 Allergic rhinitis, unspecified; M48.12 Ankylosing hyperostosis [Forestier], cervical region; M47.816 Spondylosis without myelopathy or radiculopathy, lumbar region; M89.49 Other hypertrophic osteoarthropathy, multiple sites; E55.9 Vitamin D deficiency, unspecified; M85.859 Other specified disorders of bone density and structure, unspecified thigh; N31.8 Other neuromuscular dysfunction of bladder; N39.0 Urinary tract infection, site not specified; B96.1 Klebsiella pneumoniae [K. pneumoniae] as the cause of diseases classified elsewhere; H40.9 Unspecified glaucoma; G47.00 Insomnia, unspecified; F41.9 Anxiety disorder, unspecified; F33.9 Major depressive disorder, recurrent, unspecified; E66.3 Overweight; Z79.4 Long term (current) use of insulin; Z79.85 Long-term (current) use of injectable non-insulin antidiabetic drugs; Z13.31 Encounter for screening for depression; Z79.890 Hormone replacement therapy; Z79.899 Other long term (current) drug therapy | CPT/HCPCS: 96127; 99212 ==

== ENCOUNTER 2025-10-11 14:55 | Outpatient (AMB) | payer OTHER, SELFPAY ==
--- NOTE | 2025-10-11 15:26 | MHC.AMDMED ---
Intake Intake Visit Reasons: Omipod 5 Ip Technology Transactions Attorney Required: Yes [employer]p Technology Transactions Attorney Language: Project Development Engineer Name: Mary patient's daughter Accompanied by: Daughter Allergies francisco Allergy (Severe, Verified 10/10/25 14:29) Rash Penicillins Allergy (Intermediate, Verified 10/10/25 14:29) RASH/HIVES HPI Comprehensive Diabetes Asmnt Most Recent Diabetes Results: Microalb/Creat Ratio, (<30) 15.3 ug/mg cr 10/05/25 Cholesterol, (<200) 104 mg/dL 10/05/25 HDL Cholesterol, (>40) 44 mg/dL 10/05/25 Triglycerides, (<150) 116 mg/dL 10/05/25 Creatinine, (0.5-1.4) 0.72 mg/dL 10/05/25 BUN, (9-16) 29 mg/dL H 10/05/25 Sodium, (135-145) 143 mmol/L 10/05/25 Potassium, (3.3-5.1) 4.5 mmol/L 10/05/25 Chloride, (96-108) 108 mmol/L 10/05/25 Carbon Dioxide, (22-29) 30 mmol/L H 10/05/25 Calcium, (8.4-10.2) 9.8 mg/dL 10/05/25 AST, (5-31) 41 U/L H 10/05/25 ALT, (0-31) 29 U/L 10/05/25 Total Protein, (6.5-8.0) 6.8 g/dL 10/05/25 Albumin, (3.5-5.0) 4.1 g/dL 10/05/25 [facility] Medical History (Updated 10/10/25 @ 16:46 by Elijah Hunter MD) Overweight (BMI 25.0-29.9) Insulin pump in place Elevated LFTs Type 2 diabetes mellitus with diabetic polyneuropathy Abdominal pain Simple ovarian cyst Diabetes type 2, uncontrolled Overactive bladder Diabetes mellitus Urge incontinence of urine Uninhibited neurogenic bladder Delayed gastric emptying Type 2 diabetes mellitus 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, with retirement current use of insulin pump Type 2 diabetes mellitus 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 Nausea and vomiting Sinusitis History of stroke Colon cancer screening Right ankle swelling Cellulitis of right lower leg Swelling of right lower extremity Left leg pain Left ankle sprain Ankle fracture, left Chronic pain syndrome Dementia 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 Diabetic neuropathy UTI (urinary tract infection) Insomnia Glaucoma Migraine Acquired hypothyroidism Hearing impairment CVA (cerebral vascular accident) Blind left eye Localized swelling, mass and lump, neck Urinary tract infection with pyuria Elevated liver enzymes Depression Anxiety Urinary incontinence in female Dementia Osteoarthritis Lumbar spondylosis Pure hypercholesterolemia Pain of right thumb Allergic rhinitis Hypertension Obesity (BMI 30-39.9) Vitamin D deficiency Dyslipidemia Diabetic polyneuropathy associated with type 2 diabetes mellitus Diabetic 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 type 2 diabetes mellitus shelter (current) use of insulin Right sided abdominal pain Dizziness and giddiness Orthostatic hypotension Charmaine albicans infection Surgical History History of carpal tunnel release History of pubovaginal sling Hx of eye surgery Hx of cystoscopy Hx of hysterectomy Hx of cholecystectomy History of esophagogastroduodenoscopy (EGD) Hx of colonoscopy Family History Father Diabetes Mother Heart problem Brother Diabetes Social History Housing: Apartment Are you a primary eye care professional to a significant other at home: No Do you presently have visiting nurse or other home services: No Alcohol intake: never Patient Tobacco Use Status: Never used Tobacco e-Cigarette/Vaping Use: Never Used Second Hand Smoke Exposure: No service: No Current occupational status: disabled Gender identity: Female Cognitive needs: Yes (Cane, walker) Hearing needs: No Vision needs: Yes (Glasses) Female Reproductive History Menstrual Age of Menarche: 10 Assessment & Plan Assessment & Plan (1) Diabetic 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 type 2 diabetes mellitus: Code(s): E11.319 - Type 2 diabetes mellitus with unspecified diabetic retinopathy without macular edema Qualifiers: Diabetic retinopathy severity: with moderate nonproliferative retinopathy Diabetes mellitus macular edema: without macular edema Laterality: bilateral Qualified Code(s): E11.3393 - Type 2 diabetes mellitus with moderate nonproliferative diabetic retinopathy without macular edema, bilateral Plan: Patient presents for pump training for Omnipod 5 with Antoni 2+ sensor Patient's last A1c 6.4% on 07/07/25 The following topics were reviewed today: ??? High Alert: 240 mg/dl ??? Low Alert: 70 mg/dl At today's visit we set up Omnipod 5 pod, and connected to Antoni 2+ sensor Patient left with sensor in warmup on the back of right arm Patient's daughter agreed to contact a class lineman if she wants to change prescription for Omnipod 5 pods from Dexcom G7 compatible pods to Antoni 2+ compatible pods Patient has follow-up appointment with Dr. Velazquez on 11/01/2025 Patient will follow-up with a class lineman in 6 weeks Safety information: Importance of a backup plan, for manual injections, proper prescriptions and emergency supplies ketone strips, and rules for testing for ketones Settings verified by a class lineman, no changes made to pump settings at today's visit Basal rate(s) (units/hour) : 12 AM to 12 PM 0.35 units / hr 12 PM to 12 AM? 0.4 units / hr Bolus setting Insulin Carbohydrate Ratio (s) 12 AM to 12 AM 1:9 6 PM to 12 AM 1:10 Correction Factor / Sensitivity Factor 12 AM? to 12 AM 1:40 Active Insulin Time 4 hours Target(s): ?12 AM? to 12 PM? 120 mg/dL Correct above 120 mg/dL. Coding Level of Care Code Est Pt Level 1 (97188) Diagnoses 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 edema associated with type 2 diabetes mellitus E11.3393 Diabetic retinopathy severity: with moderate nonproliferative retinopathy Diabetes mellitus macular edema: without macular edema Laterality: bilateral
--- OUTSIDE RECORDS SUMMARY | 2025-10-11 18:30 | XMS_ITS ---
Author Name Agatha Mayorga NP Address [address] [place] [address] Phone [phone] [facility] Care Team Providers Care Fisheries Technical Officer Name Role Phone Agatha Mayorga Unavailable [phone] VANITA MOLINA Unavailable [phone] TRIP GOETZ Unavailable [phone] MYAH ELDER Unavailable [phone] Elijah Hunter Unavailable [phone] DEVIN ESTRELLA Unavailable [phone] XOCHITL TAVAREZ Unavailable [phone] January Unavailable [phone] Neil Velazquez Unavailable [phone] Reason for Referral Not Available Allergies, adverse [...] AT BEDTIME 2022 No Data Available Nystatin [id number] UNIT/GM Crm APPLY TO AFF ECTED AREA [...] 2023-02-24 2024-01-30 BD UF MICRO PEN NEEDLE [id number] DIRECTED INJECTS 4 TIMES A DAY 2023-03-19 [...] StableRosuvastat in, Lantus, Humalog Has omnipod insulin [id number] 7.7% Monitor BG routinely, low carb diet, [...] Pain Assessment - NO pain present (1126F) [facility] [place] Pain Assessment - NO pain present (1126F) [facility] [place] Pain Assessment - NO pain present (1126F) [facility] [place] Pain Assessment - NO pain present (1126F) [facility] [place] Pain Assessment - NO pain present (1126F) [facility] [place] Pain Assessment - NO pain present (1126F) [facility] [place] Pain Assessment - NO pain present (1126F) [facility] [place] Pain Assessment - NO pain present (1126F) [facility] [place] Pain Assessment - NO pain present (1126F) [facility] [place]20[place] Presence of insulin pump (external) (internal)Migraine, unspecified, not intractable, without status migrainosusType 2 diabetes mellitus with other specified complicationHyperlipidemia, unspecifiedUnspecified dementia without behavioral disturbanceOveractive bladderObesity, unspecifiedMajor depressive disorder, single episode, unspecifiedAnxiety disorder, unspecified Estab. patient 30-39min; chronic exacerbation, 2 stable chronic or 1 acute illness add add modifier 95 for video, (do not use for phone, instead use 09819-95) [facility] [place]2023 Migraine, unspecified, not intractable, without status migrainosusType 2 diabetes mellitus with other specified complicationHyperlipidemia, unspecifiedUnspecified dementia without behavioral disturbanceMajor depressive disorder, recurrent, moderateOveractive bladderObesity, unspecifiedAnxiety disorder, unspecified Estab. patient 30-39min; chronic exacerbation, 2 stable chronic or 1 acute illness add add modifier 95 for video, (do not use for phone, instead use 35590-02) [facility] [place] Estab. patient 30-39min; chronic exacerbation, 2 stable chronic or 1 acute illness add add modifier 95 for video, (do not use for phone, instead use 42583-17) [facility] [place] Estab. patient 30-39min; chronic exacerbation, 2 stable chronic or 1 acute illness add add modifier 95 for video, (do not use for phone, instead use 27833-75) [facility] [place] Estab. patient 30-39min; chronic exacerbation, 2 stable chronic or 1 acute illness add add modifier 95 for video, (do not use for phone, instead use 85258-60) [facility] [place] Estab. patient 30-39min; chronic exacerbation, 2 stable chronic or 1 acute illness add add modifier 95 for video, (do not use for phone, instead use 33644-49) [facility] [place] Estab. patient 30-39min; chronic exacerbation, 2 stable chronic or 1 acute illness add add modifier 95 for video, (do not use for phone, instead use 23657-36) [facility] [place] Estab. patient 30-39min; chronic exacerbation, 2 stable chronic or 1 acute illness add add modifier 95 for video, (do not use for phone, instead use 08699-55) [facility] [place] 05/22/20[place] Estab. patient 30-39min; chronic exacerbation, 2 stable chronic or 1 acute illness add add modifier 95 for video, (do not use for phone, instead use 63190-29) [facility] [place] 05/22/20[place] Estab. patient 30-39min; chronic exacerbation, 2 stable chronic or 1 acute illness add add modifier 95 for video, (do not use for phone, instead use 53639-94) [facility] [place] Estab. patient 30-39min; chronic exacerbation, 2 stable chronic or 1 acute illness add add modifier 95 for video, (do not use for phone, instead use 14072-22) [facility] [place] 01/30/2024 Migraine, unspecified, not intractable, without status [...] (do not use for phone, instead use 86642-04) [facility] [place] 01/30/20[place] Estab. patient 30-39min; chronic exacerbation, 2 stable chronic or 1 acute illness add add modifier 95 for video, (do not use for phone, instead use 20065-76) [facility] [place] 01[place]/20[place] Estab. patient 30-39min; chronic exacerbation, 2 stable chronic or 1 acute illness add add modifier 95 for video, (do not use for phone, instead use 56961-20) [facility] [place]/20[place] Estab. patient 30-39min; chronic exacerbation, 2 stable chronic or 1 acute illness add add modifier 95 for video, (do not use for phone, instead use 94568-23) [facility] [place] 01[place]/20[place] Estab. patient 30-39min; chronic exacerbation, 2 stable chronic or 1 acute illness add add modifier 95 for video, (do not use for phone, instead use 57659-29) [facility] [place] 01/30/20[place] Estab. patient 30-39min; chronic exacerbation, 2 stable chronic or 1 acute illness add add modifier 95 for video, (do not use for phone, instead use 53175-66) [facility] [place] 01/30/20[place] Estab. patient 30-39min; chronic exacerbation, 2 stable chronic or 1 acute illness add add modifier 95 for video, (do not use for phone, instead use 88271-90) [facility] [place] 01/30/20[place] Estab. patient 30-39min; chronic exacerbation, 2 stable chronic or 1 acute illness add add modifier 95 for video, (do not use for phone, instead use 47695-01) [facility] [place] 01/30/20[place] Estab. patient 30-39min; chronic exacerbation, 2 stable chronic or 1 acute illness add add modifier 95 for video, (do not use for phone, instead use 13128-39) [facility] [place] 01/30/20[place] Estab. patient 20-29min; 1 stable chronic or 2 minor; add add modifier 95 for video, modifier 93 for phone [facility] [place] 12/13/2024 Migraine, unspecified, not intractable, without status [...] 95 for video, modifier 93 for phone [facility] [place] 12/13/2024 Estab. patient 20-29min; 1 stable chronic or 2 minor; add add modifier 95 for video, modifier 93 for phone [facility] [place] Estab. patient 20-29min; 1 stable chronic or 2 minor; add add modifier 95 for video, modifier 93 for phone [facility] 12/13/20[place] Estab. patient 20-29min; 1 stable chronic or 2 minor; add add modifier 95 for video, modifier 93 for phone [facility] [place]/13/20[place] Estab. patient 20-29min; 1 stable chronic or 2 minor; add add modifier 95 for video, modifier 93 for phone [facility] [place] 12/13/2024 Estab. patient 20-29min; 1 stable chronic or 2 minor; add add modifier 95 for video, modifier 93 for phone [facility] [place] 12/13/2024 Vital Signs Date of [...] tive Time Current Smoking Status Never smoker 2025-09-14 0 Sex Female Gender identity Woman History [...] (do not use for phone, instead use 57528-23) [id number] 2022-08-13 No Data Available No Data Availa ble Estab. patient 30-39min; chronic exacerbation, 2 stable chronic or 1 acute illness add add modifier 95 for video, (do not use for phone, instead use 95732-42) [id number] 2023-05-22 No Data Available No Data Availa [...] (do not use for phone, instead use 37569-41) 36363 2024-01-30 No Data Available No Data Availa [...] 95 for video, modifier 93 for phone [id number] 2024-12-13 No Data Available No Data Availa [...] ty pe 2, 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, on intermediate school teacher insulin pumpMigrainesHyperlipidemia associated with type 2 diabetes [...] education needs that may arise.Has omnipod insulin [id number] 7.7% last monthBlood sugar varies, since adding [...] arise.Emgality monthlyNeurology - Dr. Magallanes omnipod insulin [id number] 7.7% last monthBlood sugar varies, since adding [...] Dr. JohnsonRosuvastatin, Lantus, Humalog Has omnipod insulin [id number] 7.7% Monitor BG routinely, low carb diet, [...] on 12/09/24.StableRosuvastatin, Lantus, Humalog Has omnipod insulin [id number] 7.7% Monitor BG routinely, low carb diet, [...]
--- OUTSIDE RECORDS SUMMARY | 2025-10-11 18:31 | XMS_ITS | Data Portability ---
Author Organization Formerly [facility] [employer] Address [address] [place] [address] Care Team Providers Care Board Operator Name Role Phone CAROL PARTIDA Primary Care Provider CAROL PARTIDA Referring Provider [phone] Assessment Encounter Date Assessment Date Assessment LastModified [...] care regarding management of nausea (or her ase certified technician). MEDICATION REVIEW Neurology: -Office trial of Emgality [...] in October per the pharmacy (Changed from [facility] due to insurance barriers in spring 2020); [...] 4 days/week remain a concern however her special services coordinator Mary is noticed an emphatic marked improvement on mirtazapine 30 mg compared to August even if the descriptors of the behaviors remain similar. We have had some concern that escalating the mirtazapine may not make much difference in the nocturnal awakening and could have a paradoxical effect, however, it is made enough of a difference during the sleeping nights that her special services coordinator and her are able to sleep at [...] August 08, right after her follow-up with [facility] on that day. Perhaps an increase [...] fludrocortisone up through 08/08/2021 and saw her relations coordinator after her appointment with us 08/08. 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 In the meanwhile, please use caution when [...] you, please continue to work with your relations coordinator. We are aware that midodrine and fludrocortisone [...] in October per the pharmacy (Changed from [facility] due to insurance barriers in spring 2020); [...] 4 days/week remain a concern however her special services coordinator Mary is noticed an emphatic marked improvement on mirtazapine 30 mg compared to August even if the descriptors of the behaviors remain similar. We have had some concern that escalating the mirtazapine may not make much difference in the nocturnal awakening and could have a paradoxical effect, however, it is made enough of a difference during the sleeping nights that her special services coordinator and her are able to sleep at [...] August 08, right after her follow-up with [facility] on that day. Perhaps an increase [...] fludrocortisone up through 08/08/2021 and saw her relations coordinator after her appointment with us 08/08. Midodrine [...] you, please continue to work with your relations coordinator. We are aware that midodrine and fludrocortisone [...] in October per the pharmacy (Changed from [facility] due to insurance barriers in spring 2020); [...] 4 days/week remain a concern however her special services coordinator Mary is noticed an emphatic marked improvement on mirtazapine 30 mg compared to August even if the descriptors of the behaviors remain similar. We have had some concern that escalating the mirtazapine may not make much difference in the nocturnal awakening and could have a paradoxical effect, however, it is made enough of a difference during the sleeping nights that her special services coordinator and her are able to sleep at [...] August 08, right after her follow-up with [facility] on that day. Perhaps an increase [...] fludrocortisone up through 08/08/2021 and saw her relations coordinator after her appointment with us 08/08. Midodrine [...] in October per the pharmacy (Changed from [facility] due to insurance barriers in spring 2020); [...] 4 days/week remain a concern however her special services coordinator Mary is noticed an emphatic marked improvement on mirtazapine 30 mg compared to August even if the descriptors of the behaviors remain similar. We have had some concern that escalating the mirtazapine may not make much difference in the nocturnal awakening and could have a paradoxical effect, however, it is made enough of a difference during the sleeping nights that her special services coordinator and her are able to sleep at [...] August 08, right after her follow-up with [facility] on that day. Perhaps an increase [...] fludrocortisone up through 08/08/2021 and saw her relations coordinator after her appointment with us 08/08. Midodrine [...] her mother and put her in a senior living. >>>>>>>>>>>>May 05, 2025 I will continue medications [...] in October per the pharmacy (Changed from [facility] due to insurance barriers in spring [...] Orders melatonin 3 mg tablet 2024 025 [id number] [address] [place], [address], 05/05/2025 14:31:35 mirtazapi ne 30 mg tablet 2024 025 [facility] [address] [place], [address], 05/05/2025 14:31:35 quetiapin e 25 mg tablet 2024 025 [facility] [address] [place], [address], 05/05/2025 14:31:35 donepezil 5 mg tablet 2024 025 [facility], [address] [place], [address], 05/05/2025 14:31:35 Qulipta 30 mg tablet 2024 025 [facility], [address] [place], [address], 05/05/2025 14:31:35 melatonin 3 mg tablet 2024 025 [facility], [address] [place], [address], 12/09/2024 11:22:17 mirtazapi ne 30 mg tablet 2024 025 [facility], [address] [place], [address], 12/09/2024 11:22:17 quetiapin e 25 mg tablet 2024 025 [facility], [address] [place], [address], 12/09/2024 11:22:18 donepezil 5 mg tablet 2024 025 [facility], [address] [place], [address], 12/09/2024 11:22:16 Qulipta 30 mg tablet 2024 025 [facility], [address] [place], [address], 12/09/2024 11:22:16 melatonin 3 mg tablet 2023 024 [facility], [address] [place], [address], 06/01/2024 13:45:16 mirtazapi ne 30 mg tablet 2023 024 [facility], [address] [place], [address], 06/01/2024 13:45:15 quetiapin e 25 mg tablet 2023 024 [facility], [address] [place], [address], 06/01/2024 13:45:22 donepezil 5 mg tablet 2023 024 [facility] [address] [place], [address], 06/01/2024 13:45:16 Qulipta 30 mg tablet 2023 024 [facility] [address] [place], [address], 06/01/2024 13:45:16 donepezil 5 mg tablet 2023 024 [facility] [address] [place], [address], 02/10/2024 12:38:24 clonazepa m 0.5 mg tablet 2023 024 [facility] [address] [place], [address], 02/10/2024 12:38:25 melatonin 3 mg tablet 2023 024 [facility] [address] [place], [address], 02/10/2024 12:38:23 mirtazapi ne 30 mg tablet 2023 024 [facility] [address] [place], [address], 02/10/2024 12:38:23 quetiapin e 25 mg tablet 2023 024 [facility], [address] [place], [address], 02/10/2024 12:38:22 Qulipta 30 mg tablet 2023 024 [facility], [address] [place], [address], 02/10/2024 12:38:23 Qulipta 30 mg tablet 2023 024 [facility], [address] [facility], [place], [address], 12/17/2023 12:06:35 Patient TargetsNo targets recorded. Patient Instructions Encounter Date Encounter Id Patient Instructions Last Modified By Organization Details Last Modified Time 12/17/2023 [id number] PREVIOUS MEDICAT ION Emgality 120 mg/mL monthly [...] for now. Her Daughter says that her moth proofer feels that she may have skin cancer, [...] brain until they have more information from moth proofer. -It is not entirely clear to me [...] sent to a different pharmacy to use [facility]. January 29, 2022 discussion Sleep was improved [...] right face droop and right chest pain. [facility] could find no stroke or heart attack evidence. She is on aspirin. I do not think further medication change or investigation is needed. Previous discussions from February 2016 or before: I explained that the problems on the telephone relate to reduced capability to communicate over the telephone, which is harder for people with dementia than talking [id number]. Previously: Management pathway for choosing [employer] as [...] minutes juana Not available 12/17/2023 17:41:49 02/10/2024 [id number] PREVIOUS MEDICAT ION Emgality 120 mg/mL monthly [...] care regarding management of nausea (or her ase certified technician). November 19 2023: She is nearly 2 weeks past due for Emgality and headaches seem to be slightly better than they were previously. We decided to hold off on introducing another preventative for now. Her Daughter says that her moth proofer feels that she may have skin cancer, [...] brain until they have more information from moth proofer. -It is not entirely clear to me [...] sent to a different pharmacy to use [facility]. January 29, 2022 discussion Sleep was improved [...] right face droop and right chest pain. [facility] could find no stroke or heart attack evidence. She is on aspirin. I do not think further medication change or investigation is needed. Previous discussions from February 2016 or before: I explained that the problems on the telephone relate to reduced capability to communicate over the telephone, which is harder for people with dementia than talking [id number]. Previously: Management pathway for choosing [employer] as [...] minutes juana Not available 02/10/2024 20:06:21 06/01/2024 [id number] PREVIOUS MEDICAT ION Emgality 120 mg/mL monthly [...] care regarding management of nausea (or her ase certified technician). November 19 2023: She is nearly 2 weeks past due for Emgality and headaches seem to be slightly better than they were previously. We decided to hold off on introducing another preventative for now. Her Daughter says that her moth proofer feels that she may have skin cancer, [...] brain until they have more information from moth proofer. -It is not entirely clear to me [...] sent to a different pharmacy to use [facility]. January 29, 2022 discussion Sleep was improved [...] right face droop and right chest pain. [facility] could find no stroke or heart attack evidence. She is on aspirin. I do not think further medication change or investigation is needed. Previous discussions from February 2016 or before: I explained that the problems on the telephone relate to reduced capability to communicate over the telephone, which is harder for people with dementia than talking [id number]. Previously: Management pathway for choosing [employer] as [...] toxicity mrossen Not available 06/01/2024 13:45:56 12/09/2024 [id number] PREVIOUS MEDICAT ION Emgality 120 mg/mL monthly [...] care regarding management of nausea (or her ase certified technician). November 19 2023: She is nearly 2 weeks past due for Emgality and headaches seem to be slightly better than they were previously. We decided to hold off on introducing another preventative for now. Her Daughter says that her moth proofer feels that she may have skin cancer, [...] brain until they have more information from moth proofer. -It is not entirely clear to me [...] sent to a different pharmacy to use [facility]. January 29, 2022 discussion Sleep was improved [...] right face droop and right chest pain. [facility] could find no stroke or heart attack evidence. She is on aspirin. I do not think further medication change or investigation is needed. Previous discussions from February 2016 or before: I explained that the problems on the telephone relate to reduced capability to communicate over the telephone, which is harder for people with dementia than talking [id number]. Previously: Management pathway for choosing [employer] as [...] toxicity mrossen Not available 12/09/2024 11:39:54 05/05/2025 [id number] PREVIOUS MEDICAT ION Emgality 120 mg/mL monthly [...] care regarding management of nausea (or her ase certified technician). November 19 2023: She is nearly 2 weeks past due for Emgality and headaches seem to be slightly better than they were previously. We decided to hold off on introducing another preventative for now. Her Daughter says that her moth proofer feels that she may have skin cancer, [...] brain until they have more information from moth proofer. -It is not entirely clear to me [...] sent to a different pharmacy to use [facility]. January 29, 2022 discussion Sleep was improved [...] right face droop and right chest pain. [facility] could find no stroke or heart attack evidence. She is on aspirin. I do not think further medication change or investigation is needed. Previous discussions from February 2016 or before: I explained that the problems on the telephone relate to reduced capability to communicate over the telephone, which is harder for people with dementia than talking [id number]. Previously: Management pathway for choosing [employer] as [...] Organization Details Recorded Time Alzheimer 's disease 45376484 Active Not Available [facility] 4 14:34:47 Lewy body disease 09392708 Active 021 Not Available [facility] 4 14:34:47 Notes:Some problems listed i n Documents: #[id number], #[id number], #[id number], #[id number], #[id number], #[id number], #[id number] could not be added to this patient's chart. Please review these documents and add these problems to the patient's chart manually as needed. Problem Notes None recorded. Procedures Surgical History Date Name Laterality Status Provider Name and Address Organization Details Recorded Time 05/05/2025 DATA REVIEW completed Fox Molina MD [address] [place] [address] [place], [address], [facility] 05/05/2025 14:21:06 12/09/2024 DATA REVIEW completed Fox Molina MD [address] [place] [address] [place], [address], [facility] 12/09/2024 11:11:14 06/01/2024 DATA REVIEW completed Fox Molina MD [address] [facility] [place], [place], [address], [facility] 06/01/2024 13:18:26 02/10/2024 DATA REVIEW completed JANI DIAS PA-C [address] [facility] [place], [place], [address], [facility] 02/10/2024 12:10:51 12/17/2023 DATA REVIEW completed ADARSH BURGOS [facility] [place], [place], [address], [facility] 12/17/2023 11:33:31 11/19/2023 DATA REVIEW completed JANI DIAS PA-C [address] [facility] [place], [place], [address], [facility] 11/19/2023 13:10:51 11/05/2023 DATA REVIEW completed ADARSH BURGOS [facility], [place], [address], [facility] 11/05/2023 09:12:27 08/05/2023 DATA REVIEW completed ADARSH BURGOS [facility], [place], [address], [facility] 08/05/2023 09:22:13 07/02/2023 DATA REVIEW completed ADARSH BURGOS [facility], [place], [address], [facility] 07/02/2023 09:49:18 12/03/2022 DATA REVIEW completed ADARSH BURGOS [facility] [place], [place], [address], [facility] 12/03/2022 10:17:36 08/14/2022 DATA REVIEW completed ADARSH BURGOS [facility] [place], [place], [address], [facility] 08/14/2022 16:55:53 07/10/2022 DATA REVIEW completed ADARSH BURGOS [facility] [address] [place], [place], [address], [facility] 07/10/2022 11:02:41 04/30/2022 DATA REVIEW completed ADARSH BURGOS [facility] [address] [place], [place], [address], [facility] 04/30/2022 10:19:28 03/05/2022 DATA REVIEW completed ADARSH BURGOS [facility] [address] [place], [place], [address], [facility] 03/05/2022 11:04:10 02/05/2022 DATA REVIEW completed ADARSH BURGOS [facility] [address] [place], [place], [address], [facility] 02/05/2022 10:31:38 01/29/2022 DATA REVIEW completed ADARSH BURGOS [facility], [place], [address], [facility] 01/29/2022 13:08:34 01/01/2022 DATA REVIEW completed ADARSH BURGOS [facility] [place], [place], [address], [facility] 01/01/2022 09:05:31 11/01/2021 DATA REVIEW completed ADARSH BURGOS [facility], [place], [address], [facility] 11/01/2021 09:07:02 09/11/2021 DATA REVIEW completed ADARSH BURGOS [facility] [place], [place], [address], [facility] 09/11/2021 09:28:02 08/09/2021 DATA REVIEW completed ADARSH BURGOS [facility] [address] [place], [place], [address], [facility] 08/09/2021 10:14:30 08/08/2021 DATA REVIEW completed Fox Molina MD [address] [place], [place] [address], [address], [facility] 08/08/2021 10:06:54 07/11/2021 DATA REVIEW completed Fox Molina MD [address] [place], [place] [address], [address], [facility] 07/11/2021 08:08:17 06/12/2021 DATA REVIEW completed Fox Molina MD [address] [place], [place] [address], [address], [facility] 06/12/2021 08:05:55 02/28/2021 DATA REVIEW completed Fox Molina MD [address] [place] [address] [place], [address], [facility] 02/28/2021 15:25:57 Imaging Results None recorded. [...] Not Available Not Available No t Available [employer] Ultra Test strips USE TO TEST 4 [...] Codes Diagnosis Note [id number] Fox Molina MD [facility] [address] [place] [address] [place] [address] 02/28/2021 15:05:01 03/01/2021 07:30:46 Alzheimer's disease 15538839 G30.9 Lewy body dementia with behavioral disturbance 0204226071 28731 G31.83 Behavioral variant of frontotemporal dementia 758620462 G31.09 Multiple s ystem atrophy 013640289 G90.3 1733 Fox Molina MD [facility] [address] [place] [address] [place] [address] 06/12/2021 07:57:54 06/12/2021 08:43:46 Alzheimer's disease 14371523 G30.9 Lewy body dementia with behavioral disturbance 5152678458 10870 G31.83 Behavioral variant of frontotemporal dementia 014959187 G31.09 Multiple s ystem atrophy 614248932 G90.3 2115 Fox Molina MD [facility] [address] [place] [address] [place] [address] 07/11/2021 07:57:57 07/11/2021 08:44:09 Alzheimer's disease 04807631 G30.9 Lewy body dementia with behavioral disturbance 0248762711 54061 G31.83 Behavioral variant of frontotemporal dementia 211224099 G31.09 Multiple s ystem atrophy 667784099 G90.3 2482 Fox Molina MD [facility] [address] [place] [address] [place] [address] 08/08/2021 09:18:20 08/08/2021 11:39:13 Alzheimer's disease 39989011 G30.9 Lewy body dementia with behavioral disturbance 7267852284 62154 G31.83 Behavioral variant of frontotemporal dementia 180358369 G31.09 Multiple s ystem atrophy 210514409 G90.3 2501 JANI DIAS PA-C [facility] [address] [place] [address] [place] [address] 08/09/2021 10:10:26 08/14/2021 13:29:21 Alzheimer's disease 58204950 G30.9 Lewy body dementia with behavioral disturbance 5393961116 47448 G31.83 Behavioral variant of frontotemporal dementia 805429527 G31.09 Multiple s ystem atrophy 177262950 G90.3 2956 JANI DIAS PA-C [facility] [address] [place] [address] [place] [address] 09/11/2021 08:57:08 09/12/2021 14:59:00 Alzheimer's disease 63088571 G30.9 Lewy body dementia with behavioral disturbance 0761978791 14187 G31.83 Behavioral variant of frontotemporal dementia 499546726 G31.09 Multiple s ystem atrophy 538603945 G90.3 [id number] JANI DIAS PA-C [facility] [address] [place] [address] [place] [address] 11/01/2021 08:59:15 11/08/2021 11:38:57 Alzheimer's disease 95526925 G30.9 Lewy body dementia with behavioral disturbance 7583773139 54801 G31.83 Behavioral variant of frontotemporal dementia 397957027 G31.09 Multiple s ystem atrophy 106196180 G90.3 Migraine without aura 56 664437 G43.009 4401 [facility] [address] [place] [address] [place] [address] 01/01/2022 08:57:02 01/02/2022 07:46:07 Alzheimer's disease 69530488 G30.9 Lewy body dementia with behavioral disturbance 4850932674 38981 G31.83 Behavioral variant of frontotemporal dementia 331064316 G31.09 Multiple s ystem atrophy 503541359 G90.3 Migraine without aura 56 050551 G43.009 [id number] JANI DIAS [facility] [address] [place] [address] [place] [address] 01/29/2022 13:01:52 02/01/2022 13:23:01 Alzheimer's disease 66949215 G30.9 Lewy body dementia with behavioral disturbance 9195822335 70944 G31.83 Behavioral variant of frontotemporal dementia 150495738 G31.09 Multiple s ystem atrophy 714520030 G90.3 Migraine without aura 56 429594 G43.009 4835 [facility] [address] [place] [address] [place] [address] 02/05/2022 09:49:11 02/07/2022 10:38:23 Alzheimer's disease 91644008 G30.9 Lewy body dementia with behavioral disturbance 4773784529 40292 G31.83 Behavioral variant of frontotemporal dementia 111000915 G31.09 Multiple s ystem atrophy 353397261 G90.3 Migraine without aura 56 081420 G43.009 5162 JANI DIAS [facility] [address] [place] [address] [place] [address] 03/05/2022 10:57:47 03/21/2022 16:41:37 Alzheimer's disease 72270980 G30.9 Lewy body dementia with behavioral disturbance 8273492877 39738 G31.83 Behavioral variant of frontotemporal dementia 611112767 G31.09 Multiple s ystem atrophy 846121427 G90.3 Migraine without aura 56 376254 G43.009 5876 [facility] [address] [place] [address] [place] [address] 04/30/2022 10:02:22 05/02/2022 13:58:29 Alzheimer's disease 68464005 G30.9 Lewy body dementia with behavioral disturbance 9446727024 74885 G31.83 Behavioral variant of frontotemporal dementia 501809417 G31.09 Multiple s ystem atrophy 849915562 G90.3 Migraine without aura 56 812778 G43.009 6580 [facility] [address] [place] [address] [place] [address] 07/10/2022 10:04:31 07/15/2022 09:00:19 Alzheimer's disease 59033809 G30.9 Lewy body dementia with behavioral disturbance 2607402971 16174 G31.83 Behavioral variant of frontotemporal dementia 188030911 G31.09 Multiple s ystem atrophy 339394408 G90.3 Migraine without aura 56 941740 G43.009 6895 JANI DIAS PA-C [facility] [address] [place] [address] [place] [address] 08/14/2022 15:36:04 08/15/2022 09:48:28 Alzheimer's disease 07462900 G30.9 Lewy body dementia with behavioral disturbance 4611560808 64359 G31.83 Behavioral variant of frontotemporal dementia 603032943 G31.09 Multiple s ystem atrophy 399705238 G90.3 Migraine without aura 56 735688 G43.009 7887 [facility] [address] [place] [address] [place] [address] 12/03/2022 10:05:29 12/10/2022 09:20:46 Alzheimer's disease 56680546 G30.9 Lewy body dementia with behavioral disturbance 0937277146 40877 G31.83 Behavioral variant of frontotemporal dementia 927389605 G31.09 Multiple s ystem atrophy 370778848 G90.3 Migraine without aura 56 194320 G43.009 [id number] [facility] [address] [place] [address] [place] [address] 07/02/2023 09:31:33 07/08/2023 11:34:38 Alzheimer's disease 30068929 G30.9 Lewy body dementia with behavioral disturbance [id number] 29960 G31.83 Behavioral variant of frontotemporal dementia 340013658 G31.09 Multiple s ystem atrophy 510171308 G90.3 Migraine without aura 56 300442 G43.009 [id number] [facility] [address] [place] [address] [place] [address] 08/05/2023 08:42:48 08/07/2023 10:11:23 Alzheimer's disease 05155636 G30.9 Lewy body dementia with behavioral disturbance [id number] G31.83 Behavioral variant of frontotemporal dementia 499464240 G31.09 Multiple s ystem atrophy 113229977 G90.3 Migraine without aura 56 502917 G43.009 [id number] [facility] [address] [place] [address] [place] [address] 11/05/2023 08:58:31 11/06/2023 09:28:57 Alzheimer's disease 90142960 G30.9 Lewy body dementia with behavioral disturbance 0832104682 65823 G31.83 Behavioral variant of frontotemporal dementia 829567612 G31.09 Multiple s ystem atrophy 081806172 G90.3 Migraine without aura 56 813751 G43.009 [id number] [facility] [address] [place] [address] [place] [address] 4 11/19/2023 13:10:10 11/24/2023 16:03:46 Alzheimer's disease 36780118 G30.9 Lewy body dementia with behavioral disturbance 2175333525 36968 G31.83 Behavioral variant of frontotemporal dementia 375149191 G31.09 Multiple s ystem atrophy 825326048 G90.3 Migraine without aura 56 249619 G43.009 [id number] JANI DIAS PA-C [facility] [address] [place] [address] [place] [address] 12/17/2023 11:02:34 12/18/2023 08:45:33 Alzheimer's disease 40834378 G30.9 Lewy body dementia with behavioral disturbance [id number] 41390 G31.83 Behavioral variant of frontotemporal dementia 811478174 G31.09 Multiple s ystem atrophy 458851425 G90.3 Migraine without aura 56 086117 G43.009 [id number] JANI DIAS PA-C [facility] [address] [place] [address] [place] [address] 02/10/2024 11:05:46 02/18/2024 10:56:01 Alzheimer's disease 52833254 G30.9 Lewy body dementia with behavioral disturbance 5351924828 G31.83 Behavioral variant of frontotemporal dementia 204595262 G31.09 Multiple s ystem atrophy 494828137 G90.3 Migraine without aura 56 317162 G43.009 [id number] Fox Molina MD [facility] [address] [place] [address] [place] [address] 06/01/2024 12:42:16 06/01/2024 17:31:56 Alzheimer's disease 59524380 G30.9 Lewy body dementia with behavioral disturbance 5388866399 G31.83 Behavioral variant of frontotemporal dementia 465137374 G31.09 Multiple s ystem atrophy 760835363 G90.3 Migraine without aura 56 458595 G43.009 [id number] Fox Molina MD [facility] [address] [place] [address] [place] [address] 4 12/09/2024 10:33:46 12/09/2024 11:57:37 Alzheimer's disease 24409765 G30.9 Lewy body dementia with behavioral disturbance 9362782949 30407 G31.83 Behavioral variant of frontotemporal dementia 437144198 G31.09 Multiple s ystem atrophy 259211558 G90.3 Migraine without aura 56 078908 G43.009 [id number] Fox Molina MD [facility] [address] [place] [address] VALERIANO WO[place]SZAINAB [address] 4 05/05/2025 13:41:05 05/07/2025 15:38:29 Alzheimer's disease 58009156 G30.9 Lewy body dementia with behavioral disturbance 3332654107 79586 G31.83 Behavioral variant of frontotemporal dementia 420571800 G31.09 Multiple s ystem atrophy 585686715 G90.3 Migraine without aura 56 085265 G43.009 Health Concerns Section Related Observation LastModified by Organization Detai ls LastModified Time None Recorded Concern Status LastModified by Organization Details LastModified Time None Recorded Advance Directives Directive None Recorded Payers Insurance Date Sequence Insurance Name Policy Number Policy Ruano Covered Member ID Ruano Member ID Guarantor Name 05/07/2025 1 [facility] - [facility]ITENT[facility] [place] [facility] [place] Krause [id number] Debo Krause 08/15/2022 2 [place] [facility] Debo Krause [id number] Debo Krause 08/15/2022 2 [facility] (MEDICARE REPLACEMENT/ ADVANTAGE - HMO) Debo Krause [id number] Debo Krause Notes Date Note Type Note Provider Name and Address Organization Details Recorded Time 4 text/html Follow-up for headache and for degenerative dementia presenting with early September 2014 onset of worsening cognitive dysfunction, gait impairment, shaking, and hallucination. She is accompanied by 1 of her 2 daughters, Mary the oldest, who provided the bulk of the history and is her special services coordinator and administer of her pills. The other daughter was not present. >>>>>>>>>>>> December 17, 2023Since November 19 2023 neurology follow-up, she has been back to her moth proofer and it is confirmed that she does have likely skin cancer on the left side of her scalp. She had this about 2 years ago and it was removed but has come back. Her daughter says that the moth proofer advised that she tell us about the [...] her earlier.She has also been to the moth proofer and her daughter has not told her but tells me that she may have skin C*A*N*C*E*R (she spells the word in [place]ian) and wonders if this could have anything to do with the headaches. >>>>>>>>>>>>November 05 2023Since July 16 2023 neurology follow-up, she politely tells me that she is doing well and when I ask her about headaches she says that she does not have many. However, her daughter says that sometimes, when she gets mad, she gets them. (We briefly discussed in Iranian that this makes sense to me because [...] blurry although she has been seeing an aircraft inspection record clerk for this as well. She continues Emgality 120 mg/mL monthly autoinjector which she does each month on the of the .I asked her daughter if there had been any med changes. She in turn asks her mother if there have been any medication changes. Ms Krause tells her daughter N o (in Iranian) who in turn translates and says there [...] Emgality.She has started taking Trulicity from her soda dry house operator, Dr. Velazquez, in the interim as her sugars were sometimes high and sometimes low and her hemoglobin A1c was 7.7. She says that they are better now and only sometimes a little high. [place] points from the following interval encountersSe2021-not getting [...] sent to a different pharmacy to use [employer] January 29 2022--Increased headaches--Increased bowel movements, 2 [...] twitching of her limbs. Fox Molina MD [address] [place] [address] [place], [phone], [facility] 12/17/2023 18:44:50 4 text/html Follow-up for headache and for degenerative dementia presenting with early September 2014 onset of worsening cognitive dysfunction, gait impairment, shaking, and hallucination. She is accompanied by 1 of her 2 daughters, Mary the oldest, who provided the bulk of the history and is her special services coordinator and administer of her pills. The other [...] head pain that did not respond to xvoh-vfr-sxyyysy medications but did respond to Qulipta 30 [...] follow-up, she has been back to her moth proofer and it is confirmed that she does have likely skin cancer on the left side of her scalp. She had this about 2 years ago and it was removed but has come back. Her daughter says that the moth proofer advised that she tell us about the [...] her earlier.She has also been to the moth proofer and her daughter has not told her but tells me that she may have skin C*A*N*C*E*R (she spells the word in [place]) and wonders if this could have anything to do with the headaches. >>>>>>>>>>>>November 05 2023Since July 16 2023 neurology follow-up, she politely tells me that she is doing well and when I ask her about headaches she says that she does not have many. However, her daughter says that sometimes, when she gets mad, she gets them. (We briefly discussed in Iranian that this makes sense to me because [...] blurry although she has been seeing an aircraft inspection record clerk for this as well. She continues Emgality 120 mg/mL monthly autoinjector which she does each month on the of the .I asked her daughter if there had been any med changes. She in turn asks her mother if there have been any medication changes. Ms Krause tells her daughter N o (in Iranian) who in turn translates and says there [...] Emgality.She has started taking Trulicity from her soda dry house operator, Dr. Velazquez, in the interim as her sugars were sometimes high and sometimes low and her hemoglobin A1c was 7.7. She says that they are better now and only sometimes a little high. Gulf points from the following interval encountersSe2021-not getting [...] sent to a different pharmacy to use [employer] January 29 2022--Increased headaches--Increased bowel movements, 2 [...] twitching of her limbs. Fox Molina MD [address] [place] [address] [place], [phone], [facility] 02/18/2024 08:32:25 text/html Follow-up for headache and for degenerative dementia presenting with early September 2014 onset of worsening cognitive dysfunction, gait impairment, shaking, and hallucination. She is accompanied by 1 of her 2 daughters, Mary the oldest, who provided the bulk of the history and is her special services coordinator and administer of her pills. The other [...] head pain that did not respond to bmxn-jtf-iegupsi medications but did respond to Qulipta 30 [...] follow-up, she has been back to her moth proofer and it is confirmed that she does have likely skin cancer on the left side of her scalp. She had this about 2 years ago and it was removed but has come back. Her daughter says that the moth proofer advised that she tell us about the [...] her earlier.She has also been to the moth proofer and her daughter has not told her but tells me that she may have skin C*A*N*C*E*R (she spells the word in [place]ian) and wonders if this could have anything to do with the headaches. >>>>>>>>>>>>November 05 2023Since July 16 2023 neurology follow-up, she politely tells me that she is doing well and when I ask her about headaches she says that she does not have many. However, her daughter says that sometimes, when she gets mad, she gets them. (We briefly discussed in Iranian that this makes sense to me because [...] blurry although she has been seeing an aircraft inspection record clerk for this as well. She continues Emgality 120 mg/mL monthly autoinjector which she does each month on the of the .I asked her daughter if there had been any med changes. She in turn asks her mother if there have been any medication changes. Ms Krause tells her daughter N o (in Iranian) who in turn translates and says there [...] Emgality.She has started taking Trulicity from her soda dry house operator, Dr. Velazquez, in the interim as her sugars were sometimes high and sometimes low and her hemoglobin A1c was 7.7. She says that they are better now and only sometimes a little high. Gulf points from the following interval encountersSept2021-not getting [...] sent to a different pharmacy to use [employer] January 29 2022--Increased headaches--Increased bowel movements, 2 [...] twitching of her limbs. Fox Molina MD [address] [place] [address], [phone], [facility] 06/01/2024 13:48:32 5 text/html Follow-up for headache and for degenerative dementia presenting with early September 2014 onset of worsening cognitive dysfunction, gait impairment, shaking, and hallucination. She is accompanied by 1 of her 2 daughters, Mary the oldest, who provided the bulk of the history and is her special services coordinator and administer of her pills. The other [...] head pain that did not respond to gyqr-ztn-ttxajaw medications but did respond to Qulipta 30 [...] follow-up, she has been back to her moth proofer and it is confirmed that she does have likely skin cancer on the left side of her scalp. She had this about 2 years ago and it was removed but has come back. Her daughter says that the moth proofer advised that she tell us about the [...] her earlier.She has also been to the moth proofer and her daughter has not told her but tells me that she may have skin C*A*N*C*E*R (she spells the word in [place]ian) and wonders if this could have anything to do with the headaches. >>>>>>>>>>>>November 05 2023Since July 16 2023 neurology follow-up, she politely tells me that she is doing well and when I ask her about headaches she says that she does not have many. However, her daughter says that sometimes, when she gets mad, she gets them. (We briefly discussed in Iranian that this makes sense to me because [...] blurry although she has been seeing an aircraft inspection record clerk for this as well. She continues Emgality 120 mg/mL monthly autoinjector which she does each month on the of the .I asked her daughter if there had been any med changes. She in turn asks her mother if there have been any medication changes. Ms Krause tells her daughter N o (in Iranian) who in turn translates and says there [...] Emgality.She has started taking Trulicity from her soda dry house operator, Dr. Velazquez, in the interim as her sugars were sometimes high and sometimes low and her hemoglobin A1c was 7.7. She says that they are better now and only sometimes a little high. Gulf points from the following interval encountersSept2021-not getting [...] sent to a different pharmacy to use [employer]el[employer] January 29 2022--Increased headaches--Increased bowel movements, 2 [...] twitching of her limbs. Fox Molina MD [address] [place] [address] [place], [phone], [facility] 12/09/2024 11:40:08 5 text/html Follow-up for headache and for degenerative dementia presenting with early September 2014 onset of worsening cognitive dysfunction, gait impairment, shaking, and hallucination. She is accompanied by 1 of her 2 daughters, Mary the oldest, who provided the bulk of the history and is her special services coordinator and administer of her pills. The other [...] with her and put her in a senior living. These sisters share a mother with her but do not share a father. She notes that her father was taken and put in a senior living because he was fallen. None of these other sisters ever visit him at the senior living.Because of this situation, her sisters have initiated two visits from [facility] and the case has been closed both times with [facility]. Both times, she reports, the case was closed, and [facility] said that everything was fine, both with her mother and with how she was taking care of her mother.However, her sisters are still making trouble. She has a letter from [facility] and from primary care to support [...] head pain that did not respond to zjbd-csn-khwoywm medications but did respond to Qulipta 30 [...] follow-up, she has been back to her moth proofer and it is confirmed that she does have likely skin cancer on the left side of her scalp. She had this about 2 years ago and it was removed but has come back. Her daughter says that the moth proofer advised that she tell us about the [...] her earlier.She has also been to the moth proofer and her daughter has not told her but tells me that she may have skin C*A*N*C*E*R (she spells the word in [place]ian) and wonders if this could have anything to do with the headaches. >>>>>>>>>>>>November 05 2023Since July 16 2023 neurology follow-up, she politely tells me that she is doing well and when I ask her about headaches she says that she does not have many. However, her daughter says that sometimes, when she gets mad, she gets them. (We briefly discussed in Iranian that this makes sense to me because [...] blurry although she has been seeing an aircraft inspection record clerk for this as well. She continues Emgality 120 mg/mL monthly autoinjector which she does each month on the of the .I asked her daughter if there had been any med changes. She in turn asks her mother if there have been any medication changes. Ms Krause tells her daughter N o (in Iranian) who in turn translates and says there [...] Emgality.She has started taking Trulicity from her soda dry house operator, Dr. Velazquez, in the interim as her sugars were sometimes high and sometimes low and her hemoglobin A1c was 7.7. She says that they are better now and only sometimes a little high. Gulf points from the following interval encountersSe2021-not getting [...] sent to a different pharmacy to use [employer] January 29 2022--Increased headaches--Increased bowel movements, 2 [...] twitching of her limbs. Fox Molina MD [address] [place] [address] [place], [phone], [facility] 05/05/2025 14:51:46 OBGyn Episode No OBEpisode recorded.
--- OUTSIDE RECORDS SUMMARY | 2025-10-11 18:31 | XMS_ITS | Clinical Summary ---
Author Organization [facility] Address [address] [address] Phone Care Team Providers Care Templer Head Name Role Phone Elijah Hunter MD Primary Care Provider [phone] Social History Tobacco Use Types Packs/Day Years [...] topic Medical Devices Not on file Insurance [facility] MEDICARE REPLACEMENT [facility] MEDICARE REPLACEMENT [place] [id number] [facility] MEDICARE REPLACEMENT [place] [id number] [facility] MEDICARE REPLACEMENT [place] [id number] [facility] MEDICARE REPLACEMENT [place] [id number] IMANI Barajas [facility] MEDIC[facility] REPLACEMENT [facility] MEDICARE REPLACEMENT Care Teams Templer Head Relationship Specialty Start Date End Date Elijah Hunter MD [address] [place] [address] [place] [address] PCP - General Internal Medicine 08/02/19 Additional Source Comments The information contained in this document represents components of the legal health record. It is not the complete legal health record.[facility]
== END 2025-10-11 15:28 | disposition home or self-care (01) ==
LOC: HO.ENCR 14:55
PROVIDERS: PCP Internal Medicine; Visit Provider Registered Nurse Diabetes Educator
DX: E11.3393 Type 2 diabetes mellitus with moderate nonproliferative diabetic retinopathy without macular edema, bilateral (principal)

== ENCOUNTER → 2025-10-11 14:55 | Outpatient (BNVA) | payer OTHER, SELFPAY | PROVIDERS: PCP Internal Medicine; Visit Provider Registered Nurse Diabetes Educator | DX: E11.65 Type 2 diabetes mellitus with hyperglycemia (principal); E11.42 Type 2 diabetes mellitus with diabetic polyneuropathy; E11.3393 Type 2 diabetes mellitus with moderate nonproliferative diabetic retinopathy without macular edema, bilateral; E11.69 Type 2 diabetes mellitus with other specified complication; Z96.41 Presence of insulin pump (external) (internal); Z46.81 Encounter for fitting and adjustment of insulin pump | CPT/HCPCS: 99211 ==